=== PATIENT | female | born 1970 | race Caucasian/White ===

== ENCOUNTER → 2017-06-02 | Day surgery (SDC) | payer OTHER ==
--- NOTE | 2017-06-05 16:31 | PATH ---
Surgical Pathology Report Patient Name: TONI GONZALEZ [facility]. Rec. #: [id number] /Age/Gender: 1970 (Age: 47) / F Account: [id number] Location: [facility], [facility] U Taken: 06/02/2017 Received: 06/02/2017 Reported: 06/05/2017 Physicians: Chris Christopher M.D. Specimen(s) Received A: LEFT BREAST SITE #1 8:00 2CM FN CORE BX B: LEFT BREAST 9-10:00, 4-12 CM FN CORE BX Clinical History Ultrasound findings: Highly suspicious/ malignant Final Diagnosis A. BREAST, LEFT, SITE #1, 8 :00, 2CM FN, CORE BIOPSY: BENIGN BREAST TISSUE SHOWING PROLIFERATIVE FIBROCYSTIC CHANGES INCLUDING MICROCYST FORMATION, USUAL DUCTAL HYPERPLASIA (UDH) AND STROMAL FIBROSIS. B. BREAST, LEFT, 9-10:00, 4-12CM FN, CORE BIOPSY: INVASIVE DUCTAL CARCINOMA, POORLY DIFFERENTIATED, MEASURING AT LEAST 5 MM IN GREATEST DIMENSION IN THIS MATERIAL. Results of ER and OK studies performed on block B at [facility] are as follows: ER (clone [id number] mouse monoclonal antibody by [employer]): 0 % nuclear staining (Negative). OK (clone16 mouse monoclonal antibody by [employer]): 0 % nuclear staining (Negative). Results of Her2 & Ki67 studies will be reported separately in an addendum. Positive and negative controls (internal if applicable) show appropriate results. Formalin fixation and cold ischemic times are within current ASCO/CAP recommendations for ER, OK and Her2 testing. Electronically Signed Lorena Velazquez M.D. Addendum Reported: 06/06/2017 Addendum Diagnosis Results of Her2 (IHC) & Ki-67 studies performed at [place], [place] ([id number]) are as follows: Her2 IHC (EP3 from [employer], formerly known as PC5612N, using [employer] Polymer Refine detection kit): 0 (Negative). Ki-67: ~90% (High proliferative index). Positive and negative controls (internal if applicable) show appropriate results. Lorena Velazquez M.D. Gross Description A. Received in formalin labeled "left breast biopsy 8:00, 2cmfn, site #1," is a 1.6 x 1.5 x 0.2 cm aggregate of multiple mcdermott-yellow, irregular to cylindrical portions of fibroadipose tissue. The formalin is filtered and the specimen is entirely submitted in one cassette. B. Received in formalin labeled "left breast biopsy 9-10:00, 4-12cmfn site #2," is a 1.2 x 0.9 x 0.1 cm aggregate of multiple mcdermott-yellow, irregular to cylindrical portions of fibroadipose tissue. The formalin is filtered and the specimen is entirely submitted in one cassette. Time to formalin fixation: 3 minutes Total formalin fixation time: Approximately 9 hours. 06/02/2017 saudi06/02/2017
== END | disposition home or self-care (01) ==
LOC: FRADUS-SUR 13:16
PROVIDERS: ATTEND Surgery
PROC: 0HBU3ZX Excision of Left Breast, Percutaneous Approach, Diagnostic (ICD-10-PCS; principal; 2017-06-02)
DX: C50.212 Malignant neoplasm of upper-inner quadrant of left female breast (principal); N60.82 Other benign mammary dysplasias of left breast; N60.32 Fibrosclerosis of left breast; N63.24 Unspecified lump in the left breast, lower inner quadrant; N63.22 Unspecified lump in the left breast, upper inner quadrant
CPT/HCPCS: 19083; 19084; 87899; 88305-TC; 88342-TC

== ENCOUNTER 2017-06-18 23:54 | Emergency (ER) | payer OTHER ==
[2017-06-19 00:06] VITALS: BMI 29.2
--- NOTE | 2017-06-19 00:09 | PDOC ---
History of Present Illness - General Chief Complaint: Pain Stated Complaint: HEADACHE,ABD PAIN Time Seen by Provider: 06/18/17 23:59 - History of Present Illness Initial Comments: 06/19/17 00:31 47 yo F with h/o chronic neck pain 2/2 multilevel herniated disc with repair, left sided invasive ductal carcinoma ( 05/19/2017) who presents with abdominal pain. Patient reports widespread, severe, diffuse, crampy, abdominal pain, worse with movement, and valsalva. Reports 1 week of loose, watery, yellow, brown stool, and nausea with no asx. emesis. Reports inability to pass solid stool, with diffuse abdominal distension. Decreased PO intake and subjective fevers. No recent antibiotic use. Denies esophageal burning. On multiple opoid medications including fentanyl, dilaudid use for chronic neck pain. Mirilax beginning Monday with no relief. Denies CP, SOB, urinary complaints, lightheadedness, weakness, sensory changes. H/o polyps on colonoscopy 5 years ago, and 3 endoscopies within past 10 years. Gastritis on endoscopy. Tobacco use 1 ppd for 40 years. Past History - Past Medical History Allergies/Adverse Reactions: Allergies Allergy/AdvReac Type Severity Reaction Status Date / Time titanium Allergy Verified 06/19/17 00:01 Home Medications: Ambulatory Orders Albuterol Sulfate [Proair Hfa] 8.5 gm IH PRN 06/19/17 Aspirin [Aspirin EC] 81 mg PO DAILY 06/19/17 Ca/D3/Mag/Zinc/Tino/Geovani/Mgbor [Caltrate 600+D3+Min Chew Tab] 1 each PO DAILY Cyclobenzaprine HCl [Flexeril -] 10 mg PO TID 06/19/17 Escitalopram Oxalate [Lexapro -] 20 mg PO DAILY 06/19/17 Esomeprazole Magnesium [Nexium 24Hr] 20 mg PO DAILY 06/19/17 FENTANYL 100mcg PATCH [DURAGESIC 100mcg PATCH -] 200 each TD Q72H 06/19/17 Furosemide [Lasix] 40 mg PO BID 06/19/17 HYDROmorphone [Dilaudid -] 4 mg PO Q4H 06/19/17 LORazepam [Ativan] 1 mg PO DAILY 06/19/17 Loteprednol Etabonate [Alrex] 5 ml OP PRN 06/19/17 Metformin HCl 500 mg PO BID 06/19/17 Metoprolol Succinate 100 mg PO BID 06/19/17 Onabotulinumtoxina [Botox (Nf) -] 200 unit IJ MONTHLY 06/19/17 Ondansetron [Zofran *Odt*] 8 mg SL BID 06/19/17 Ranitidine [Zantac -] 150 mg PO ONCE 06/19/17 Secukinumab [Cosentyx Pen] 150 mg SQ MONTHLY 06/19/17 Asthma: Yes Cancer: Yes (Breast cancer) COPD: No DVT: No Diabetes: Yes HTN: Yes Liver Disease: Yes (fatty liver) Psychiatric Problems: Yes (depression, anxiety) Other medical history: cervical sx, herniated discs, psoriatic arthritis,bone grafts - Suicide/Smoking/Psychosocial Hx Smoking History: Current every day smoker Number of Cigarettes Smoked Daily: 20 Information on smoking cessation initiated: Yes 'Breaking Loose' booklet given: 06/19/17 Hx Alcohol Use: No Drug/Substance Use Hx: No Substance Use Type: None Review of Systems - Review of Systems Comments:: 06/19/17 00:08 GENERAL/CONSTITUTIONAL: No fever or chills. No weakness. HEAD, EYES, EARS, NOSE AND THROAT: No change in vision. No ear pain or discharge. No sore throat.- CARDIOVASCULAR: No chest pain or shortness of breath RESPIRATORY: No cough, wheezing, or hemoptysis. GASTROINTESTINAL:+ nausea, constipation, and abdominal pain. vomiting, diarrhea or constipation. GENITOURINARY: No dysuria, frequency, or change in urination. MUSCULOSKELETAL: + Neck Pain. No joint or muscle swelling. SKIN: No rash NEUROLOGIC: No headache, vertigo, loss of consciousness, or change in strength/ sensation. ENDOCRINE: No increased thirst. No abnormal weight change HEMATOLOGIC/LYMPHATIC: No anemia, easy bleeding, or history of blood clots. ALLERGIC/IMMUNOLOGIC: No hives or skin allergy. *Physical Exam - Vital Signs Last Vital Signs Temp Pulse Resp BP Pulse Ox 97.7 F 100 H 19 155/92 100 06/18/17 23:56 06/18/17 23:56 06/18/17 23:56 06/18/17 23:56 06/18/17 23:56 - Physical Exam Comments: 06/19/17 00:08 GENERAL: Awake, alert, and fully oriented, in no acute distress HEAD: No signs of trauma, normocephalic, atraumatic EYES: PERRLA, EOMI, sclera anicteric, conjunctiva clear ENT:Hearing grossly normal, nares patent, oropharynx clear without exudates. Moist mucosa NECK: Normal ROM, supple, no lymphadenopathy, JVD, or masses LUNGS: No distress, speaks full sentences, clear to auscultation bilaterally HEART: Regular rate and rhythm, normal S1 and S2, no murmurs, rubs or gallops, peripheral pulses normal and equal bilaterally. ABDOMEN: Soft, diffuse abdominal ttp. Distended Hyperactive bowel sounds. No guarding, no rebound, no rigidity. No masses. Neg CVA ttp. Neg suprapubic pain or cva ttp. Neg Mcburney or montoya sign. EXTREMITIES : Normal inspection, Normal range of motion, no edema. No clubbing or cyanosis. SKIN: Warm, Dry, normal turgor, no rashes or lesions noted ED Treatment Course - LABORATORY CBC & Chemistry Diagram: 06/19/17 01:20 06/19/17 03:26 Medical Decision Making - Medical Decision Making 06/19/17 00:49 47 yo F with h/o chronic neck pain 2/2 multilevel herniated disc with repair, left sided invasive ductal carcinoma ( 06/03/2017) who presents with widespread , severe, diffuse, crampy, abdominal pain, worse with movement, and valsalva. Reports 1 week of loose, watery, yellow, brown stool, and nausea with no asx. emesis. Reports inability to pass solid stool, with diffuse abdominal distension. Decreased PO intake and subjective fevers. No recent antibiotic use. On multiple opoid medications including fentanyl, dilaudid use for chronic neck pain. Mirilax beginning Monday with no relief. Denies CP, SOB, urinary complaints, lightheadedness, weakness, sensory changes. H/o polyps on colonoscopy 5 years ago, and 3 endoscopies within past 10 years. Gastritis on endoscopy. Physical exam with diffuse ttp, and HBS. HR 100. Low suspicion of acute abdomen. Abdomen non rigid, and pt. HDS. Possible Ileus vs. SBO 2/2 chronic opoid use. Will also consider C-dif. ED Course: CBC, CMP, Lipase NS [address] AP 06/19/17 01:35 CBC: Unremarkable 06/19/17 02:46 UA: Neg 06/19/17 05:05 K+ 3.3 06/19/17 05:27 CT AP: cirrhosis and portal venous HTN w/out ascites. 06/19/17 05:32 06/19/17 06:26 Patient stable for d/c with return precautions. Advised to f/u with Dr. Josephine Groves for cirrhosis finding on CT. *DC/Admit/Observation/Transfer Diagnosis at time of Disposition: Abdominal pain Qualifiers: Abdominal location: generalized Qualified Code(s): R10.84 - Generalized abdominal pain - Discharge Dispostion Disposition: HOME Condition at time of disposition: Stable Admit: No - Referrals Referrals: Josephine Groves [Primary Care Provider] - - Patient Instructions Printed Discharge Instructions: DI for Constipation, DI for Cirrhosis Additional Instructions: Please return to the emergency department with any new or worsening symptoms or concerns. Please follow up with your primary care physician within 72 hours. - Post Discharge Activity - Attestations Physician Attestion: 06/19/17 00:09 I attest to the information provided in this note.
--- NOTE | 2017-06-19 00:39 | PDOC ---
Attending Attestation - Resident Resident Name: Amadeo Nicholas - ED Attending Attestation I have performed the following: I have examined & evaluated the patient, The case was reviewed & discussed with the resident, I agree w/resident's findings & plan - HPI HPI: 06/19/17 00:42 Pt comes with abd pain and constipation. - Physicial Exam PE: 06/19/17 00:42 Agree with resident exam - Medical Decision Making 06/19/17 05:42 Patient Name: TONI GONZALEZ THIS IS A PRELIMINARY REPORT FROM [facility] DATE OF SERVICE: 2017-06-19 04:43:59 IMAGES: 430 EXAM: ABDOMEN \T\ PELVIS CT WITH CONTR HISTORY: Pain COMPARISON: None. FINDINGS: Lung bases ar the calcified lung granulomas are noted. The visualized cardiac chambers are normal size and configuration. The liver is cirrhotic and the spleen is enlarged up to 17.1 x 9.7. Perigastric varices are noted. Findings are consistent with portal venous hypertension. There are gallstones, but no gallbladder inflammation or biliary duct dilation. Normal pancreas, adrenal glands and kidneys. The stomach and abdominal small and large bowel are normal. There is no aortic aneurysm. There is no significant retroperitoneal lymphadenopathy. The pelvic small and large bowel are normal. There is no evidence of appendicitis. Status post hysterectomy. Urinary bladder is unremarkable. There is no pelvic free fluid. No discrete pelvic lymphadenopathy is identified. IMPRESSION: Cirrhosis and portal venous hypertension, without ascites. Gallstones. Old granulomatous disease. THIS DOCUMENT HAS BEEN ELECTRONICALLY SIGNED 06/19/17 06:37 Pt has normal labs; K+ is low. SHe will be repleted. Pt will follow with her PMDs
[2017-06-19] MEDS ORDERED: SODIUM CHLORIDE 1,000 ML IV STA (00:47)
[2017-06-19 01:33] LABS: BASO % 0.5 % (0-2.0); HEMATOCRIT 38.3 % (32.4-45.2); HEMOGLOBIN 12.9 GM/dL (10.7-15.3); LYMPH % 35.8 % (8-40); MCH 27.7 pg (25.7-33.7); MCHC 33.7 g/dl (32.0-36.0); MEAN CELL VOLUME 82.4 fl (80-96); MEAN PLT VOLUME 9.5 fl (7.5-11.1); MONO % 8.4 % (3.8-10.2); NEUT % 54.3 % (42.8-82.8); PLATELET COUNT 84 K/MM3 (134-434); RBC 4.65 M/mm3 (3.60-5.2); RDW 15.8 % (11.6-15.6); WHITE BLOOD COUNT 4.4 K/mm3 (4.0-10.0)
[2017-06-19 02:20] LABS: URINE APPEARANCE CLEAR; URINE BILIRUBIN NEGATIVE (NEGATIVE); URINE BLOOD NEGATIVE (NEGATIVE); URINE COLOR YELLOW; URINE GLUCOSE (UA) NEGATIVE (NEGATIVE); URINE KETONE NEGATIVE (NEGATIVE); URINE LEUK ESTERASE NEGATIVE (NEGATIVE); URINE NITRITE NEGATIVE (NEGATIVE); URINE PROTEIN NEGATIVE (NEGATIVE); URINE UROBILINOGEN NEGATIVE mg/dL (0.2-1.0)
[2017-06-19] MEDS ORDERED: ACETAMINOPHEN 1000 MG/100 ML VIAL (NON FORMULARY) IVPB ONE (03:19)
[2017-06-19] MEDS ORDERED: ACETAMINOPHEN INJECTION 100 ML IVPB ONE (03:20)
[2017-06-19 04:17] LABS: ALBUMIN 3.6 g/dl (3.4-5.0); ALK PHOS 113 U/L (45-117); ANION GAP 6 (8-16); BLOOD UREA NITROGEN 8 mg/dL (7-18); CALCIUM 8.5 mg/dL (8.5-10.1); CHLORIDE 103 mmol/L (98-107); CO2 30 mmol/L (21-32); CREATININE 0.5 mg/dL (0.55-1.02); GLUCOSE,RANDOM 92 mg/dL (74-106); POTASSIUM 3.3 mmol/L (3.5-5.1); SGOT/AST 19 U/L (15-37); SGPT/ALT 21 U/L (12-78); SODIUM 139 mmol/L (136-145); TOT PROT 6.3 g/dl (6.4-8.2)
[2017-06-19] MEDS ORDERED: POTASSIUM CHLORIDE TABS 20 MEQ TABLET.ER (FP) PO ONE ×2 (04:41→06:16)
[2017-06-19] MEDS ORDERED: MAGNESIUM SULF 50% (8.12 MEQ/2 ML-1 GM VIAL) IVPB ONE (04:41)
[2017-06-19] MEDS ORDERED: KETOROLAC TROMETHAMINE 30 MG/1 ML VIAL IVPUSH ONE (05:25)
[2017-06-19] MEDS ORDERED: KETOROLAC TROMETHAMINE 30 MG/1 ML VIAL ONE (05:27)
[2017-06-19] MEDS ORDERED: MAGNESIUM SULF 50% (8.12 MEQ/2 ML-1 GM VIAL) ONE (05:31)
[2017-06-19] MEDS ORDERED: METHOCARBAMOL 750 MG TAB PO ONE (06:34)
[2017-06-19] MEDS ORDERED: METHOCARBAMOL 500 MG TABLET PO ONE (06:45)
[2017-06-19] MEDS ORDERED: METHOCARBAMOL 500 MG TABLET ONE (06:53)
[2017-06-19 07:05] VITALS: BP 167/90; PULSE 80; TEMP 97.5
== END 2017-06-19 07:05 | disposition home or self-care (01) ==
LOC: JER 23:54
PROC: 3E0333Z Introduction of Anti-inflammatory into Peripheral Vein, Percutaneous Approach (ICD-10-PCS; principal; 2017-06-18)
PROC: 3E033GC Introduction of Other Therapeutic Substance into Peripheral Vein, Percutaneous Approach (ICD-10-PCS; 2017-06-18)
PROC: 3E0337Z Introduction of Electrolytic and Water Balance Substance into Peripheral Vein, Percutaneous Approach (ICD-10-PCS; 2017-06-18)
DX: R10.84 Generalized abdominal pain (principal); K74.60 Unspecified cirrhosis of liver; K76.6 Portal hypertension; I10 Essential (primary) hypertension; E11.9 Type 2 diabetes mellitus without complications; F32.9 Major depressive disorder, single episode, unspecified; F41.9 Anxiety disorder, unspecified; F17.210 Nicotine dependence, cigarettes, uncomplicated; K76.0 Fatty (change of) liver, not elsewhere classified; M54.2 Cervicalgia; G89.29 Other chronic pain; C50.919 Malignant neoplasm of unspecified site of unspecified female breast; J45.909 Unspecified asthma, uncomplicated; Z79.82 Long term (current) use of aspirin; Z79.84 Long term (current) use of oral hypoglycemic drugs
CPT/HCPCS: 36415; 74177-TC; 80053; 81003; 83690; 84703; 85025; 99282-25

== ENCOUNTER 2017-06-20 00:51 | Emergency (ER) | payer OTHER ==
[2017-06-20 01:19] VITALS: BP 147/71; PULSE 71; TEMP 97.9; BMI 28.7
--- NOTE | 2017-06-20 01:29 | PDOC ---
History of Present Illness <MarcosSwathi Merna - Last Filed: 06/20/17 01:29> - General History Source: Patient, Old Records Exam Limitations: No Limitations - History of Present Illness Initial Comments: 06/20/17 01:36 The patient is a 47 year old female, with a significant past medical history of chronic neck pain 2/2 multilevel herniated disc with repair, liver cirrhosis, left sided invasive ductal carcinoma ( 05/19/2017), diabetes, asthma, HTN, psoriatic arthritis,bone grafts, depression and anxiety, who presents to the emergency department with abdominal pain, diarrhea, nausea and palpitations for the past 4 days. She describes her pain as ranging from mild to moderate, without radiation or modifying factors. She notes that she has also been having loose stools since taking Miralax for constipation. The patient was in the ED yesterday morning with the same complaints. A CT scan abdomen/pelvis with contrast was performed revealing liver cirrhosis. She was discharged and referred to her PMD and GI (Dr. Gilbert) for follow up. Upon presentation the patient was reassured that her previous work-up from yesterday was the complete work-up that could be done and that the referrals that were given to her are what she needs for her next steps. The patient denies chest pain, shortness of breath, headache and dizziness. Denies fever, chills, vomit, diarrhea and constipation. Denies dysuria, frequency, urgency and hematuria. Allergies: Titanium Past surgical history: None reported Social history: Cigarette use (20 daily) PMD: Dr. Josephine Groves <Bucky Chapman - Last Filed: 06/20/17 01:36> - General Chief Complaint: Pain Stated Complaint: PAIN Time Seen by Provider: 06/20/17 01:02 Past History - Past Medical History Asthma: Yes Cancer: Yes (Breast cancer) COPD: No DVT: No Diabetes: Yes HTN: Yes Liver Disease: Yes (fatty liver, cirrhosis) Psychiatric Problems: Yes (depression, anxiety) - Suicide/Smoking/Psychosocial Hx Smoking History: Current every day smoker Have you smoked in the past 12 months: Yes Number of Cigarettes Smoked Daily: 20 Information on smoking cessation initiated: No 'Breaking Loose' booklet given: 06/19/17 Hx Alcohol Use: No Drug/Substance Use Hx: No Substance Use Type: None <Swathi Rodríguez - Last Filed: 06/20/17 01:29> <Bucky Chapman - Last Filed: 06/20/17 01:36> - Past Medical History Allergies/Adverse Reactions: Allergies Allergy/AdvReac Type Severity Reaction Status Date / Time titanium Allergy Verified 06/20/17 01:15 Home Medications: Ambulatory Orders Albuterol Sulfate [Proair Hfa] 8.5 gm IH PRN 06/19/17 Aspirin [Aspirin EC] 81 mg PO DAILY 06/19/17 Ca/D3/Mag/Zinc/Tino/Geovani/Mgbor [Caltrate 600+D3+Min Chew Tab] 1 each PO DAILY Cyclobenzaprine HCl [Flexeril -] 10 mg PO TID 06/19/17 Escitalopram Oxalate [Lexapro -] 20 mg PO DAILY 06/19/17 Esomeprazole Magnesium [Nexium 24Hr] 20 mg PO DAILY 06/19/17 FENTANYL 100mcg PATCH [DURAGESIC 100mcg PATCH -] 200 each TD Q72H 06/19/17 Furosemide [Lasix] 40 mg PO BID 06/19/17 HYDROmorphone [Dilaudid -] 4 mg PO Q4H 06/19/17 LORazepam [Ativan] 1 mg PO DAILY 06/19/17 Loteprednol Etabonate [Alrex] 5 ml OP PRN 06/19/17 Metformin HCl 500 mg PO BID 06/19/17 Metoprolol Succinate 100 mg PO BID 06/19/17 Onabotulinumtoxina [Botox (Nf) -] 200 unit IJ MONTHLY 06/19/17 Ondansetron [Zofran *Odt*] 8 mg SL BID 06/19/17 Ranitidine [Zantac -] 150 mg PO ONCE 06/19/17 Secukinumab [Cosentyx Pen] 150 mg SQ MONTHLY 06/19/17 Review of Systems - Review of Systems Able to Perform ROS?: Yes Comments:: 06/20/17 01:36 GENERAL/CONSTITUTIONAL: No fever or chills. No weakness. HEAD, EYES, EARS, NOSE AND THROAT: No change in vision. No ear pain or discharge. No sore throat. CARDIOVASCULAR: No chest pain or shortness of breath RESPIRATORY: No cough, wheezing, or hemoptysis. GASTROINTESTINAL: (+) Abdominal pain, nausea and diarrhea. No vomiting or constipation. GENITOURINARY: No dysuria, frequency, or change in urination. MUSCULOSKELETAL: No joint or muscle swelling or pain. No neck or back pain. SKIN: No rash NEUROLOGIC: No headache, vertigo, loss of consciousness, or change in strength/ sensation. ENDOCRINE: No increased thirst. No abnormal weight change HEMATOLOGIC/LYMPHATIC: No anemia, easy bleeding, or history of blood clots. ALLERGIC/IMMUNOLOGIC: No hives or skin allergy. <Bucky Chapman - Last Filed: 06/20/17 01:36> *Physical Exam - Vital Signs Last Vital Signs Temp Pulse Resp BP Pulse Ox 97.9 F 71 20 147/71 100 06/20/17 01:15 06/20/17 01:15 06/20/17 01:15 06/20/17 01:15 06/20/17 01:15 <Swathi Rodríguez - Last Filed: 06/20/17 01:29> - Vital Signs Last Vital Signs Temp Pulse Resp BP Pulse Ox 97.9 F 71 20 147/71 100 06/20/17 01:15 06/20/17 01:15 06/20/17 01:15 06/20/17 01:15 06/20/17 01:15 - Physical Exam Comments: 06/20/17 01:36 GENERAL: Awake, alert, and fully oriented, in no acute distress HEAD: No signs of trauma, normocephalic, atraumatic EYES: PERRLA, EOMI, sclera anicteric, conjunctiva clear ENT: Auricles normal inspection, hearing grossly normal, nares patent, oropharynx clear without exudates. Moist mucosa NECK: Normal ROM, supple, no lymphadenopathy, JVD, or masses LUNGS: No distress, speaks full sentences, clear to auscultation bilaterally HEART: Regular rate and rhythm, normal S1 and S2, no murmurs, rubs or gallops, peripheral pulses normal and equal bilaterally. ABDOMEN: Soft, nontender, normoactive bowel sounds. No guarding, no rebound. No masses EXTREMITIES : Normal inspection, Normal range of motion, no edema. No clubbing or cyanosis. NEUROLOGICAL: Cranial nerves II through XII grossly intact. Normal speech, normal gait, no focal sensorimotor deficits SKIN: Warm, Dry, normal turgor, no rashes or lesions noted <Bucky Chapman - Last Filed: 06/20/17 01:36> *DC/Admit/Observation/Transfer <Swathi Rodríguez - Last Filed: 06/20/17 01:29> - Attestations Scribe Attestion: 06/20/17 01:36 Documentation prepared by Bucky Chapman, acting as medical referral coordinator for Swathi Rodríguez MD <Bucky Chapman - Last Filed: 06/20/17 01:36> Diagnosis at time of Disposition: Abdominal pain Qualifiers: Abdominal location: epigastric Qualified Code(s): R10.13 - Epigastric pain - Discharge Dispostion Disposition: HOME Condition at time of disposition: Stable - Referrals Referrals: Josephine Groves [Primary Care Provider] - - Patient Instructions Printed Discharge Instructions: DI for Epigastric Pain Additional Instructions: please keep your appointment with your oncologist - Post Discharge Activity
== END 2017-06-20 01:35 | disposition home or self-care (01) ==
LOC: JER 00:51
DX: R10.13 Epigastric pain (principal); J45.909 Unspecified asthma, uncomplicated; M19.90 Unspecified osteoarthritis, unspecified site; C50.919 Malignant neoplasm of unspecified site of unspecified female breast; E11.9 Type 2 diabetes mellitus without complications; I10 Essential (primary) hypertension; K76.0 Fatty (change of) liver, not elsewhere classified; F32.9 Major depressive disorder, single episode, unspecified; F41.9 Anxiety disorder, unspecified; F17.210 Nicotine dependence, cigarettes, uncomplicated; M54.2 Cervicalgia; G89.29 Other chronic pain; K74.60 Unspecified cirrhosis of liver; Z79.82 Long term (current) use of aspirin; Z79.84 Long term (current) use of oral hypoglycemic drugs
CPT/HCPCS: 99281-25

== ENCOUNTER 2017-06-20 04:00 | Emergency (ER) | payer OTHER ==
[2017-06-20 04:19] VITALS: BP 168/86; PULSE 88; TEMP 98.3; BMI 27.4
--- NOTE | 2017-06-20 05:14 | PDOC ---
History of Present Illness - General Chief Complaint: Pain Stated Complaint: GENERALIZED PAIN Time Seen by Provider: 06/20/17 04:22 - History of Present Illness Initial Comments: 06/20/17 05:14 47 yo F with h/o chronic neck pain 2/2 multilevel herniated disc with repair, left sided invasive ductal carcinoma ( 05/19/2017), and recent dx. of cirrhosis ( 06/19/17) who presents with abdominal pain. Patient seen twice in [facility] ED within last 48 hours for similiar complaint of widespread, severe, diffuse, crampy, abdominal pain, worse with movement, and valsalva. Endorses 1 week of loose, watery, yellow, brown stool, and nausea w/out vomitting. Decreased PO intake and subjective fevers. No recent antibiotic use. On multiple opoid medications including fentanyl, dilaudid use for chronic neck pain. Mirilax beginning Monday with no relief. Was given Toradol during most recent ED visit today at 130 AM with improvement in symptoms. Denies CP, SOB, urinary complaints , lightheadedness, weakness, sensory changes. H/o polyps on colonoscopy 5 years ago, and 3 endoscopies within past 10 years. Gastritis on endoscopy. Tobacco use 1 ppd for 40 years. Was advised today to f/u with Dr. Vladimir WHITE for chronic symptom management. Past History - Past Medical History Allergies/Adverse Reactions: Allergies Allergy/AdvReac Type Severity Reaction Status Date / Time titanium Allergy Verified 06/20/17 04:17 Home Medications: Ambulatory Orders Albuterol Sulfate [Proair Hfa] 8.5 gm IH PRN 06/19/17 Aspirin [Aspirin EC] 81 mg PO DAILY 06/19/17 Ca/D3/Mag/Zinc/Tino/Geovani/Mgbor [Caltrate 600+D3+Min Chew Tab] 1 each PO DAILY Cyclobenzaprine HCl [Flexeril -] 10 mg PO TID 06/19/17 Escitalopram Oxalate [Lexapro -] 20 mg PO DAILY 06/19/17 Esomeprazole Magnesium [Nexium 24Hr] 20 mg PO DAILY 06/19/17 FENTANYL 100mcg PATCH [DURAGESIC 100mcg PATCH -] 200 each TD Q72H 06/19/17 Furosemide [Lasix] 40 mg PO BID 06/19/17 HYDROmorphone [Dilaudid -] 4 mg PO Q4H 06/19/17 LORazepam [Ativan] 1 mg PO DAILY 06/19/17 Loteprednol Etabonate [Alrex] 5 ml OP PRN 06/19/17 Metformin HCl 500 mg PO BID 06/19/17 Metoprolol Succinate 100 mg PO BID 06/19/17 Onabotulinumtoxina [Botox (Nf) -] 200 unit IJ MONTHLY 06/19/17 Ondansetron [Zofran *Odt*] 8 mg SL BID 06/19/17 Ranitidine [Zantac -] 150 mg PO ONCE 06/19/17 Secukinumab [Cosentyx Pen] 150 mg SQ MONTHLY 06/19/17 Asthma: Yes Cancer: Yes (Breast cancer) COPD: No DVT: No Diabetes: Yes HTN: Yes Liver Disease: Yes (fatty liver, cirrhosis) Psychiatric Problems: Yes (depression, anxiety) - Suicide/Smoking/Psychosocial Hx Smoking History: Never smoked Have you smoked in the past 12 months: No Number of Cigarettes Smoked Daily: 20 Information on smoking cessation initiated: No 'Breaking Loose' booklet given: 06/19/17 Hx Alcohol Use: No Drug/Substance Use Hx: Yes Substance Use Type: None Review of Systems - Review of Systems Comments:: 06/20/17 05:14 GENERAL/CONSTITUTIONAL: No fever or chills. No weakness. HEAD, EYES, EARS, NOSE AND THROAT: No change in vision. No ear pain or discharge. No sore throat.- CARDIOVASCULAR: No chest pain or shortness of breath RESPIRATORY: No cough, wheezing, or hemoptysis. GASTROINTESTINAL:+ Nausea, constipation, and abdominal pain. vomiting, diarrhea or constipation. GENITOURINARY: No dysuria, frequency, or change in urination. MUSCULOSKELETAL: + Neck Pain. No joint or muscle swelling. SKIN: No rash NEUROLOGIC: No headache, vertigo, loss of consciousness, or change in strength/ sensation. ENDOCRINE: No increased thirst. No abnormal weight change HEMATOLOGIC/LYMPHATIC: No anemia, easy bleeding, or history of blood clots. ALLERGIC/IMMUNOLOGIC: No hives or skin allergy. *Physical Exam - Vital Signs Last Vital Signs Temp Pulse Resp BP Pulse Ox 98.3 F 88 14 168/86 99 06/20/17 04:17 06/20/17 04:17 06/20/17 04:17 06/20/17 04:17 06/20/17 04:17 - Physical Exam Comments: 06/20/17 05:15 GENERAL: Awake, alert, and fully oriented, in no acute distress HEAD: No signs of trauma, normocephalic, atraumatic EYES: PERRLA, EOMI, sclera anicteric, conjunctiva clear ENT:Hearing grossly normal, nares patent, oropharynx clear without exudates. Moist mucosa NECK: Normal ROM, supple, no lymphadenopathy, JVD, or masses LUNGS: No distress, speaks full sentences, clear to auscultation bilaterally HEART: Regular rate and rhythm, normal S1 and S2, no murmurs, rubs or gallops, peripheral pulses normal and equal bilaterally. ABDOMEN: Soft, diffuse abdominal ttp. Distended Hyperactive bowel sounds. No guarding, no rebound, no rigidity. No masses. Neg CVA ttp. Neg suprapubic pain or cva ttp. Neg Mcburney or montoya sign. EXTREMITIES : Normal inspection, Normal range of motion, no edema. No clubbing or cyanosis. SKIN: Warm, Dry, normal turgor, no rashes or lesions noted Medical Decision Making - Medical Decision Making 06/20/17 05:28 47 yo F with h/o chronic neck pain 2/2 multilevel herniated disc with repair, left sided invasive ductal carcinoma ( 05/19/2017), and recent dx. of cirrhosis ( 06/19/17) who presents with abdominal pain. Patient seen twice in [facility] ED within last 48 hours for similiar complaint of widespread, severe, diffuse, crampy, abdominal pain, worse with movement, and valsalva. Endorses 1 week of loose stools and nausea w/out vomitting. Decreased PO intake and subjective fevers. No recent antibiotic use. On multiple opoid medications including fentanyl, dilaudid use for chronic neck pain. Mirilax beginning Monday with no relief. Was given Toradol during most recent ED visit today at 130 AM with improvement in symptoms. Denies CP, SOB, urinary complaints, lightheadedness, weakness, sensory changes.Was advised today to f/u with Dr. Vladimir WHITE for chronic symptom management. ED course: *DC/Admit/Observation/Transfer - Referrals Referrals: Josephine Groves [Primary Care Provider] - - Patient Instructions Additional Instructions: Please return to the emergency department with any new or worsening symptoms or concerns. Please follow up with your primary care physician within 72 hours. - Post Discharge Activity - Attestations Physician Attestion: 06/20/17 05:17 I attest to the information provided in this note.
== END 2017-06-20 07:10 | disposition left against medical advice (07) ==
LOC: JER 04:00
DX: R10.84 Generalized abdominal pain (principal)
CPT/HCPCS: 99282-25

== ENCOUNTER 2017-06-20 13:26 | Emergency (ER) | payer OTHER ==
--- NOTE | 2017-06-20 13:32 | PDOC ---
History of Present Illness - General Stated Complaint: Shortness of Breath Time Seen by Provider: 06/20/17 13:32 - History of Present Illness Initial Comments: 06/20/17 13:33 Ms. Jacobo is a 47 yo female w/ pmh of herniated disc w/ repair causing chronic neck pain, newly diagnosed liver cirrhosis, DM, left sided invasive ductal carcinoma (05/19/17), asthma, HTN, psoriatic arthritis, bone grafts, depression, anxiety who presents complaining of earlier abdominal pain after getting home from the ER earlier this morning. She reports she believes she had a binder which she wears on too tight and that her pain alleviated once she loosened it. She felt much better after loosening the binder and speaking with EMS who she reports "calmed her down." She reports that she feels much better now and would like to go home. She has also been referred to PMD and GI (Dr. Gilbert) for follow-up and had extensive counseling on next steps. The patient denies chest pain, shortness of breath, headache and dizziness. Denies fever, chills, nausea, vomit, diarrhea and constipation. Denies dysuria, frequency, urgency and hematuria. Allergies: Titanium Past History - Past Medical History Allergies/Adverse Reactions: Allergies Allergy/AdvReac Type Severity Reaction Status Date / Time titanium Allergy Verified 06/20/17 13:44 Home Medications: Ambulatory Orders Albuterol Sulfate [Proair Hfa] 8.5 gm IH PRN 06/19/17 Aspirin [Aspirin EC] 81 mg PO DAILY 06/19/17 Ca/D3/Mag/Zinc/Tino/Geovani/Mgbor [Caltrate 600+D3+Min Chew Tab] 1 each PO DAILY Cyclobenzaprine HCl [Flexeril -] 10 mg PO TID 06/19/17 Escitalopram Oxalate [Lexapro -] 20 mg PO DAILY 06/19/17 Esomeprazole Magnesium [Nexium 24Hr] 20 mg PO DAILY 06/19/17 FENTANYL 100mcg PATCH [DURAGESIC 100mcg PATCH -] 200 each TD Q72H 06/19/17 Furosemide [Lasix] 40 mg PO BID 06/19/17 HYDROmorphone [Dilaudid -] 4 mg PO Q4H 06/19/17 LORazepam [Ativan] 1 mg PO DAILY 06/19/17 Loteprednol Etabonate [Alrex] 5 ml OP PRN 06/19/17 Metformin HCl 500 mg PO BID 06/19/17 Metoprolol Succinate 100 mg PO BID 06/19/17 Onabotulinumtoxina [Botox (Nf) -] 200 unit IJ MONTHLY 06/19/17 Ondansetron [Zofran *Odt*] 8 mg SL BID 06/19/17 Ranitidine [Zantac -] 150 mg PO ONCE 06/19/17 Secukinumab [Cosentyx Pen] 150 mg SQ MONTHLY 06/19/17 Asthma: Yes Cancer: Yes (Breast cancer) COPD: No DVT: No Diabetes: Yes HTN: Yes Liver Disease: Yes (fatty liver, cirrhosis) Psychiatric Problems: Yes (depression, anxiety) - Immunization History Immunization Up to Date: No - Suicide/Smoking/Psychosocial Hx Smoking History: Never smoked Have you smoked in the past 12 months: No Number of Cigarettes Smoked Daily: 20 'Breaking Loose' booklet given: 06/19/17 Hx Alcohol Use: No Drug/Substance Use Hx: Yes Substance Use Type: None Review of Systems - Review of Systems Comments:: 06/20/17 13:36 GENERAL/CONSTITUTIONAL: No fever or chills. No weakness. HEAD, EYES, EARS, NOSE AND THROAT: No change in vision. No ear pain or discharge. No sore throat. CARDIOVASCULAR: No chest pain or shortness of breath RESPIRATORY: No cough, wheezing, or hemoptysis. GASTROINTESTINAL: +Abdominal pain with nausea earlier this morning (now resolved ). No vomiting, diarrhea or constipation. GENITOURINARY: No dysuria, frequency, or change in urination. MUSCULOSKELETAL: No joint or muscle swelling or pain. No neck or back pain. SKIN: No rash NEUROLOGIC: No headache, vertigo, loss of consciousness, or change in strength/ sensation. ENDOCRINE: No increased thirst. No abnormal weight change HEMATOLOGIC/LYMPHATIC: No anemia, easy bleeding, or history of blood clots. ALLERGIC/IMMUNOLOGIC: No hives or skin allergy. *Physical Exam - Physical Exam Comments: 06/20/17 13:36 GENERAL: Awake, alert, and fully oriented, in no acute distress HEAD: No signs of trauma, normocephalic, atraumatic EYES: PERRLA, EOMI, sclera anicteric, conjunctiva clear ENT: Auricles normal inspection, hearing grossly normal, nares patent, oropharynx clear without exudates. Moist mucosa NECK: Normal ROM, supple, no lymphadenopathy, JVD, or masses LUNGS: No distress, speaks full sentences, clear to auscultation bilaterally HEART: Regular rate and rhythm, normal S1 and S2, no murmurs, rubs or gallops, peripheral pulses normal and equal bilaterally. ABDOMEN: Soft, nontender, normoactive bowel sounds. No guarding, no rebound. No masses EXTREMITIES: Normal inspection, Normal range of motion, no edema. No clubbing or cyanosis. NEUROLOGICAL: Cranial nerves II through XII grossly intact. Normal speech, normal gait, no focal sensorimotor deficits SKIN: Warm, Dry, normal turgor, no rashes or lesions noted. Medical Decision Making - Medical Decision Making 06/20/17 14:07 Ms. Jacobo is a 47 yo w/ pmh as described who presents for evaluation of resolved abdominal pain and current nausea. Patient recently evaluated multiple times in ER with lab workup. 06/20/17 14:15 Patient reporting complete resolution of symptoms after single 4mg sublingual zofran. Do not believe repeat labs needed at this time as patient reporting resolution of symptoms. Patient reports she has zofran Rx at home and will follow-up with PCP and Dr. Gilbert per prior plan. Discharging to home. 06/20/17 15:47 Patient noted to have episode of pain after she placed rubber stress balls inside of her binder, pain resolved after removal. EKG ordered to ensure no acute cardiac events - EKG regular rate, regular rhythm, normal access, interval , no st elevations or depressions. Normal EKG. Patient going home per prior plan. *DC/Admit/Observation/Transfer Diagnosis at time of Disposition: Nausea - Discharge Dispostion Disposition: HOME - Referrals Referrals: Josephine Groves [Primary Care Provider] - - Patient Instructions Printed Discharge Instructions: DI for Nausea -- Adult Additional Instructions: Please return if any increase in pain, nausea not controllable with home zofran prescription, fever, chills, or other concerning symptoms. Follow-up with Dr. Gilbert and your primary care provider as discussed for further evaluation. - Post Discharge Activity
[2017-06-20 13:53] VITALS: BMI 29.2
[2017-06-20] MEDS ORDERED: ONDANSETRON 4 MG/2 ML VIAL IVPUSH ONE (14:04)
[2017-06-20] MEDS ORDERED: ONDANSETRON *ODT* 4 MG TABLET SL ONE (14:06)
[2017-06-20] MEDS ORDERED: ONDANSETRON *ODT* 4 MG TABLET ONE (14:09)
--- NOTE | 2017-06-20 14:23 | PDOC ---
Attending Attestation - Resident Resident Name: [email or web address] - ED Attending Attestation I have performed the following: I have examined & evaluated the patient, The case was reviewed & discussed with the resident, I agree w/resident's findings & plan, Exceptions are as noted - HPI HPI: 06/20/17 14:21 47-year-old female well known to this physician and department presents for resolved complaints of epigastric fullness, she now attributes this to an over tightening of her chest/abdominal binder. Denies any chest pain or faculty breathing, states her symptoms are simply stomach gurgling and gas. Is having normal bowel movements, denies fevers or chills. Was just seen here last night and discharged after had normal labs. - Physicial Exam PE: 06/20/17 14:22 Vital signs normal Afebrile No guarding or rebound, well-appearing standing by her stretcher speaking full sentences, wants to go home. - Medical Decision Making 06/20/17 14:22 Patient seen and evaluated with the resident. I agree with the overall evaluation, assessment, and management with the following summary of visit: 47-year-old female with acute on chronic symptoms, epigastric fullness/ dyspepsia now resolved. Normal labs 11 hours ago. Feels better after Ramandeep Wants to go home Understands return criteria Heart Score/ECG Review #1 ECG reviewed & interpreted by me at: 15:45 General ECG Interpretation: Sinus Rhythm, Normal Rate (80), Normal Intervals ( qtc 484), No acute ischemic changes
[2017-06-20 16:57] VITALS: BP 136/86; PULSE 75; TEMP 98.1
--- NOTE | 2017-06-21 10:45 | EKG ---
Test Reason : Blood Pressure : / mmHG Vent. Rate : 080 BPM Atrial Rate : 080 BPM P-R Int : 154 ms QRS Dur : 084 ms QT Int : 420 ms P-R-T Axes : 066 031 052 degrees QTc Int : 484 ms NORMAL SINUS RHYTHM POSSIBLE LEFT ATRIAL ENLARGEMENT T WAVE ABNORMALITY, CONSIDER ANTERIOR ISCHEMIA ABNORMAL ECG WHEN COMPARED WITH ECG OF 27-JUN-2007 11:22, T WAVE INVERSION NOW EVIDENT IN ANTERIOR LEADS Confirmed by STEVEN CARVAJAL, GINA ([id number]) on 06/21/2017 10:45:10 AM Referred By: Confirmed By:GINA HARRIS MD
== END 2017-06-20 16:32 | disposition home or self-care (01) ==
LOC: JER 13:26
PROC: 3E033GC Introduction of Other Therapeutic Substance into Peripheral Vein, Percutaneous Approach (ICD-10-PCS; principal; 2017-06-20)
DX: R11.0 Nausea (principal); E11.9 Type 2 diabetes mellitus without complications; I10 Essential (primary) hypertension; J45.909 Unspecified asthma, uncomplicated; M19.90 Unspecified osteoarthritis, unspecified site; C50.912 Malignant neoplasm of unspecified site of left female breast; K76.0 Fatty (change of) liver, not elsewhere classified; K74.60 Unspecified cirrhosis of liver; F32.9 Major depressive disorder, single episode, unspecified; F41.9 Anxiety disorder, unspecified; F17.210 Nicotine dependence, cigarettes, uncomplicated; M54.2 Cervicalgia; G89.29 Other chronic pain
CPT/HCPCS: 93005; 93010; 99284-25

== ENCOUNTER 2017-07-16 13:00 | Emergency (ER) | payer OTHER ==
[2017-07-16 13:05] VITALS: BP 148/84; PULSE 75; TEMP 98.4; BMI 29.2
--- NOTE | 2017-07-16 13:45 | PDOC ---
History of Present Illness - General Chief Complaint: Injury Stated Complaint: FACE INJURY Time Seen by Provider: 07/16/17 13:33 History Source: Patient, Old Records Exam Limitations: No Limitations - History of Present Illness Initial Comments: 07/16/17 14:15 This is a 39-year-old own past medical history of breast cancer, hepatitis presents to the emergency department with redness to her left eye status post striking it against a wall on 07/15. Patient states she was walking in her slippers in the bathroom when her foot slipped causing her to lose balance and striking her left face on the door jamb of the bathroom door. She denies loss of consciousness, headaches, blurry vision, dizziness, nausea, vomiting. Patient states the redness has improved as more time is progressed. Past History - Past Medical History Allergies/Adverse Reactions: Allergies Allergy/AdvReac Type Severity Reaction Status Date / Time titanium Allergy Verified 07/16/17 13:01 Home Medications: Ambulatory Orders Albuterol Sulfate [Proair Hfa] 8.5 gm IH PRN 06/19/17 Aspirin [Aspirin EC] 81 mg PO DAILY 06/19/17 Ca/D3/Mag/Zinc/Tino/Gevoani/Mgbor [Caltrate 600+D3+Min Chew Tab] 1 each PO DAILY Cyclobenzaprine HCl [Flexeril -] 10 mg PO TID 06/19/17 Escitalopram Oxalate [Lexapro -] 20 mg PO DAILY 06/19/17 Esomeprazole Magnesium [Nexium 24Hr] 20 mg PO DAILY 06/19/17 FENTANYL 100mcg PATCH [DURAGESIC 100mcg PATCH -] 200 each TD Q72H 06/19/17 Furosemide [Lasix] 40 mg PO BID 06/19/17 HYDROmorphone [Dilaudid -] 4 mg PO Q4H 06/19/17 LORazepam [Ativan] 1 mg PO DAILY 06/19/17 Loteprednol Etabonate [Alrex] 5 ml OP PRN 06/19/17 Metformin HCl 500 mg PO BID 06/19/17 Metoprolol Succinate 100 mg PO BID 06/19/17 Onabotulinumtoxina [Botox (Nf) -] 200 unit IJ MONTHLY 06/19/17 Ondansetron [Zofran *Odt*] 8 mg SL BID 06/19/17 Ranitidine [Zantac -] 150 mg PO ONCE 06/19/17 Secukinumab [Cosentyx Pen] 150 mg SQ MONTHLY 06/19/17 Asthma: Yes Cancer: Yes (Breast cancer left) COPD: No DVT: No Diabetes: Yes HTN: Yes Liver Disease: Yes (fatty liver, cirrhosis) Psychiatric Problems: Yes (depression, anxiety) - Immunization History Immunization Up to Date: No - Suicide/Smoking/Psychosocial Hx Smoking History: Current every day smoker Have you smoked in the past 12 months: Yes Number of Cigarettes Smoked Daily: 10 Information on smoking cessation initiated: Yes 'Breaking Loose' booklet given: 07/16/17 Hx Alcohol Use: No Drug/Substance Use Hx: Yes Substance Use Type: None Review of Systems - Review of Systems Able to Perform ROS?: Yes Is the patient limited [place] proficient: No Constitutional: No: Symptoms Reported HEENTM: Yes: See HPI Respiratory: No: Symptoms reported Cardiac (ROS): No: Symptoms Reported ABD/GI: No: Symptoms Reported : No: Symptoms Reported Musculoskeletal: No: Symptoms Reported Integumentary: No: Symptoms Reported Neurological: No: Symptoms reported Endocrine: No: Symptoms Reported Hematologic/Lymphatic: Yes: See HPI *Physical Exam - Vital Signs Last Vital Signs Temp Pulse Resp BP Pulse Ox 98.4 F 75 18 148/84 100 07/16/17 13:02 07/16/17 13:02 07/16/17 13:02 07/16/17 13:02 07/16/17 13:02 - Physical Exam General Appearance: Yes: Appropriately Dressed. No: Apparent Distress HEENT: positive: Normal Voice, TMs Normal, Pharynx Normal, Other (no septal hematomas noted. petichial area noted to left lateral orbit.). negative: Nasal Congestion Neck: positive: Trachea midline, Supple Respiratory/Chest: positive: Lungs Clear, Normal Breath Sounds. negative: Respiratory Distress, Accessory Muscle Use Cardiovascular: positive: Regular Rhythm, Regular Rate. negative: Murmur Gastrointestinal/Abdominal: positive: Normal Bowel Sounds, Soft. negative: Tender Musculoskeletal: positive: Normal Inspection. 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 No septal hematoma is noted. Palpation of the orbits reveals no tenderness, crepitus, deformity, subcutaneous emphysema. Cranial nerves II through XII intact. Gait steady. EOMI. No entrapment present The patient has a benign neurological examination give a history of thrombocytopenia I'll perform a CAT scan to rule out intracranial hemorrhage Patient is refusing pain medication at this time 07/16/17 14:[address] as read by Dr. Gotti: No CVA tenderness of intracranial injury or calvarial fracture. There is no extra-axial fluid collection. No gross mass lesion is seen. There is no discrete infarct within the limits of CT. No abnormal attenuation is noted. The ventricles and cisterns appear unremarkable. Impression: No CT evidence of acute pathology dC home *DC/Admit/Observation/Transfer Diagnosis at time of Disposition: Ecchymosis of eye Qualifiers: Encounter type: initial encounter Laterality: left Qualified Code(s): S05.12XA - Contusion of eyeball and orbital tissues, left eye, initial encounter - Discharge Dispostion Disposition: HOME Condition at time of disposition: Stable Admit: No - Referrals Referrals: Josephine Groves [Primary Care Provider] - - Patient Instructions Printed Discharge Instructions: DI for Closed Head Injury Additional Instructions: Return to emergency department for blurry vision, headaches, nausea, vomiting, change in behavior or any other concerns. - Post Discharge Activity
== END 2017-07-16 14:35 | disposition home or self-care (01) ==
LOC: JERFT 13:00
DX: S05.12XA Contusion of eyeball and orbital tissues, left eye, initial encounter (principal); W01.118A Fall on same level from slipping, tripping and stumbling with subsequent striking against other sharp object, initial encounter; Y93.89 Activity, other specified; Y92.032 Bedroom in apartment as the place of occurrence of the external cause; Y99.8 Other external cause status; J45.909 Unspecified asthma, uncomplicated; I10 Essential (primary) hypertension; E11.9 Type 2 diabetes mellitus without complications; Z79.84 Long term (current) use of oral hypoglycemic drugs; K76.0 Fatty (change of) liver, not elsewhere classified; K74.60 Unspecified cirrhosis of liver; F41.8 Other specified anxiety disorders; C50.912 Malignant neoplasm of unspecified site of left female breast; F17.210 Nicotine dependence, cigarettes, uncomplicated
CPT/HCPCS: 70450-TC; 99281-25

== ENCOUNTER 2017-07-19 12:53 | Inpatient (IN) | payer OTHER ==
--- NOTE | 2017-07-19 12:55 | PDOC ---
History of Present Illness - General Chief Complaint: Pain Stated Complaint: ABDOMINAL PAIN FOR 3 DAYS Time Seen by Provider: 07/19/17 12:55 History Source: Patient Exam Limitations: No Limitations - History of Present Illness Initial Comments: 47 yo F history HTN, DM, prior spinal surgeries to neck, psoriasis, cirrhosis, anxiety, and depression presenting with 3 days of abdominal pain, progressively worsening. Pain is described as sharp, colicky, severe. She has history of prior abdominal surgery. No N/V/D. She has had some constipation. She c/o "bumps " in the perirectal area. Past History - Past Medical History Allergies/Adverse Reactions: Allergies Allergy/AdvReac Type Severity Reaction Status Date / Time nickel Allergy Intermediate Rash Verified 07/19/17 12:55 titanium Allergy Verified 07/19/17 12:54 Home Medications: Ambulatory Orders Albuterol Sulfate Inhaler - [Ventolin Hfa Inhaler -] 2 inh PO Q4H 07/19/17 Escitalopram Oxalate [Lexapro -] 20 mg PO BID 07/19/17 Esomeprazole Magnesium 40 mg PO DAILY 07/19/17 FENTANYL 100mcg PATCH [DURAGESIC 100mcg PATCH -] 200 mcg TP Q2D 07/19/17 Furosemide [Lasix] 40 mg PO BID 07/19/17 HYDROmorphone [Dilaudid -] 4 mg PO TID PRN 07/19/17 LORazepam [Ativan] 1 mg PO BID 07/19/17 Lactulose 10 gm PO BID 07/19/17 Metformin HCl 500 mg PO BIDAC 07/19/17 Montelukast Sodium [Singulair] 10 mg PO HS 07/19/17 Ondansetron [Zofran *Odt*] 8 mg SL TID 07/19/17 Ranitidine [Zantac -] 150 mg PO DAILY 07/19/17 Metoprolol Succinate 100 mg PO BID 07/20/17 Asthma: Yes Cancer: Yes (Breast cancer left) COPD: No DVT: No Diabetes: Yes HTN: Yes Liver Disease: Yes (fatty liver, cirrhosis) Psychiatric Problems: Yes (depression, anxiety) - Immunization History Immunization Up to Date: No - Suicide/Smoking/Psychosocial Hx Smoking History: Current every day smoker Have you smoked in the past 12 months: Yes Number of Cigarettes Smoked Daily: 10 'Breaking Loose' booklet given: 07/16/17 Hx Alcohol Use: No Drug/Substance Use Hx: Yes Substance Use Type: None Review of Systems - Review of Systems Able to Perform ROS?: Yes Comments:: GENERAL/CONSTITUTIONAL: No fever or chills. No weakness. HEAD, EYES, EARS, NOSE AND THROAT: No change in vision. No ear pain or discharge. No sore throat. CARDIOVASCULAR: No chest pain or shortness of breath. RESPIRATORY: No cough, wheezing, or hemoptysis. GASTROINTESTINAL: No nausea, vomiting, diarrhea. +Constipation. +Abdominal pain. GENITOURINARY: No dysuria, frequency, or change in urination. MUSCULOSKELETAL: No joint or muscle swelling or pain. No neck or back pain. SKIN: No rash NEUROLOGIC: No headache, vertigo, loss of consciousness, or change in strength/ sensation. ENDOCRINE: No increased thirst. No abnormal weight change. HEMATOLOGIC/LYMPHATIC: No anemia, easy bleeding, or history of blood clots. ALLERGIC/IMMUNOLOGIC: No hives or skin allergy. *Physical Exam - Physical Exam Comments: GENERAL: Awake, alert, and fully oriented, in no acute distress HEAD: No signs of trauma EYES: PERRLA, EOMI, sclera anicteric, conjunctiva clear ENT: Auricles normal inspection, hearing grossly normal, nares patent, oropharynx clear without exudates. Moist mucosa NECK: Dec ROM (hx surgery), supple, no lymphadenopathy, JVD, or masses. +Well- healed surgical scars. LUNGS: Breath sounds equal, clear to auscultation bilaterally. No wheezes, and no crackles HEART: Regular rate and rhythm, normal S1 and S2, no murmurs, rubs or gallops ABDOMEN: Soft, diffusely tender, +hyperactive bowel sounds. +Guarding, no rebound. +Hepatomegaly. EXTREMITIES: Normal range of motion, no edema. No clubbing or cyanosis. No cords, erythema, or tenderness NEUROLOGICAL: Cranial nerves II through XII grossly intact. Normal speech, normal gait SKIN: Warm, Dry, normal turgor, no rashes or lesions noted. RECTAL: +Multiple small external hemorrhoids. Nontender, no bleeding. ED Treatment Course - LABORATORY CBC & Chemistry Diagram: 07/21/17 07:00 07/21/17 07:00 Medical Decision Making - Medical Decision Making 07/19/17 13:40 Pt with history prior abd surgery, now with constipation, pain, bloating, and hyperactive BS on exam. Will plan for CT to r/o SBO. 07/19/17 17:56 Pt reassessed. She c/o pain, appears uncomfortable. We discussed CT results- colitis, infectious vs inflammatory. Recent diarrhea would align with diagnosis. Given the amount of pain she has had and pain med requirement, will admit. 07/19/17 18:18 D/w Dr. Groves. Requested transfer to [facility] for admission. *DC/Admit/Observation/Transfer Diagnosis at time of Disposition: Colitis Abdominal pain Qualifiers: Abdominal location: generalized Qualified Code(s): R10.84 - Generalized abdominal pain - Discharge Dispostion Condition at time of disposition: Stable Admit: Yes - Referrals - Patient Instructions - Post Discharge Activity
[2017-07-19] MEDS ORDERED: ALBUTEROL SO4 2.5/IPRATROPIUM 0.5 INH SOL 3 ML VIAL.NEB. NEB ONE (12:57)
[2017-07-19] MEDS ORDERED: SODIUM CHLORIDE 1,000 ML IV STA ×2 (13:05→17:56)
[2017-07-19] MEDS ORDERED: morphine CARPU-JECT 4 MG/1 ML DISP.SYRIN IVPUSH ONE ×2 (13:05→17:56)
[2017-07-19] MEDS ORDERED: morphine SULFATE 4 MG/ML VIAL ONE ×2 (13:17→18:05)
[2017-07-19 13:33] LABS: BASO % 0.6 % (0-2.0); EOS % 0.3 % (0-4.5); HEMATOCRIT 38.5 % (32.4-45.2); HEMOGLOBIN 13.1 GM/dl (10.7-15.3); LYMPH % 24.3 % (8-40); MCH 27.1 pg (25.7-33.7); MCHC 34.1 g/dl (32.0-36.0); MEAN CELL VOLUME 79.5 fl (80-96); MEAN PLT VOLUME 8.8 fl (7.5-11.1); MONO % 8.2 % (3.8-10.2); NEUT % 66.6 % (42.8-82.8); PLATELET COUNT 134 K/MM3 (134-434); RBC 4.85 M/mm3 (3.60-5.2); RDW 14.5 % (11.6-15.6); WHITE BLOOD COUNT 5.5 K/mm3 (4.0-10.8)
[2017-07-19 13:52] LABS: INR 1.18 (0.82-1.09); PROTHROMBIN TIME (PATIENT) 13.2 SEC (10.2-13.0)
[2017-07-19 13:56] LABS: ALBUMIN 4.2 g/dl (3.5-5.0); ALK PHOS 119 U/L (32-92); ANION GAP 7 (8-16); BLOOD UREA NITROGEN 10 mg/dl (7-18); CALCIUM 9.2 mg/dl (8.4-10.2); CHLORIDE 102 mmol/L (98-107); CO2 27 mmol/L (22-28); GLUCOSE,RANDOM 112 mg/dl (74-106); POTASSIUM 3.4 mmol/L (3.5-5.1); SGOT/AST 29 U/L (10-42); SGPT/ALT 21 U/L (10-40); SODIUM 136 mmol/L (136-145); TOT PROT 7.4 g/dl (6.4-8.3)
[2017-07-19 14:17] LABS: CREATININE 0.7 mg/dl (0.6-1.3)
[2017-07-19 15:31] LABS: LIPASE 205 U/L (73-393)
[2017-07-19 23:07] VITALS: BMI 28.5
[2017-07-19] MEDS ORDERED: fentaNYL 100mcg/hr PATCH.TD72 TD SCH (23:15)
[2017-07-19] MEDS ORDERED: ONDANSETRON 4 MG/2 ML VIAL IVPB PRN (23:17)
[2017-07-19] MEDS ORDERED: SODIUM CHLORIDE 1,000 ML IV SCH (23:30)
[2017-07-20] MEDS: morphine SULFATE 4 MG/ML VIAL IVPUSH PRN ×4 (00:03→21:50)
[2017-07-20] MEDS: INSULIN SLIDING SCALE (NOVOLOG) 1 VIAL SQ SCH ×4 (06:28→22:24)
[2017-07-20 07:47] LABS: HEMATOCRIT 35.8 % (32.4-45.2); MCH 26.8 pg (25.7-33.7); MCHC 33.4 g/dl (32.0-36.0); MEAN CELL VOLUME 80.2 fl (80-96); MEAN PLT VOLUME 9.1 fl (7.5-11.1); PLATELET COUNT 88 K/MM3 (134-434); RBC 4.46 M/mm3 (3.60-5.2); RDW 15.8 % (11.6-15.6); WHITE BLOOD COUNT 3.4 K/mm3 (4.0-10.0)
[2017-07-20 08:23] LABS: CHLORIDE 106 mmol/L (98-107); POTASSIUM 3.7 mmol/L (3.5-5.1); SODIUM 141 mmol/L (136-145)
[2017-07-20] MEDS: ALBUTEROL SO4 0.083% IH SOL 2.5 MG/3 ML VIAL.NEB. NEB PRN ×2 (08:32→20:24)
[2017-07-20 08:33] LABS: ALBUMIN 3.4 g/dl (3.4-5.0); ALK PHOS 121 U/L (45-117); ANION GAP 10 (8-16); BILIRUBIN,TOTAL 1.1 mg/dL (0.2-1.0); BLOOD UREA NITROGEN 8 mg/dL (7-18); CO2 25 mmol/L (21-32); CREATININE 0.5 mg/dL (0.55-1.02); GLUCOSE,RANDOM 89 mg/dL (74-106); SGOT/AST 21 U/L (15-37); SGPT/ALT 20 U/L (12-78); TOT PROT 6.7 g/dl (6.4-8.2)
[2017-07-20] MEDS ORDERED: ALBUTEROL SO4 18 GM HFA INHALER IH PRN (08:44)
--- NOTE | 2017-07-20 08:50 | HP ---
Admitting History and Physical - Primary Care Physician PCP: Josephine Groves S - Admission Chief Complaint: abdominal pain, colitis History of Present Illness: 47 yo F history HTN, DM, prior spinal surgeries to neck, psoriasis, cirrhosis, anxiety, and depression presenting with 3 days of abdominal pain, progressively worsening. Pain is described as sharp, colicky, severe. She has history of prior abdominal surgery. No N/V/D. She has had some constipation seen by GI dr. Also h/o breast CA recently dx seen by heme onc and breast surgery, sent to [facility] for further management History Source: Patient, Medical Record Limitations to Obtaining History: No Limitations - Past Medical History Cardiovascular: Yes: HTN Pulmonary: Yes: COPD Gastrointestinal: Yes: Gastritis Hepatobiliary: Yes: Cirrhosis ...LMP Comment: last period 14 years ago ...: No Heme/Onc: Yes: Cancer Endocrine: Yes: Diabetes Mellitus - Smoking History Smoking history: Current every day smoker Have you smoked in the past 12 months: Yes Aproximately how many cigarettes per day: 10 - Alcohol/Substance Use Hx Alcohol Use: No History of Substance Use: reports: Prescription - Social History Usual Living Arrangement: Yes: With Child ADL: Independent Occupation: disability History of Recent Travel: No Home Medications - Allergies Allergies/Adverse Reactions: Allergies Allergy/AdvReac Type Severity Reaction Status Date / Time nickel Allergy Intermediate Rash Verified 07/19/17 12:55 titanium Allergy Verified 07/19/17 12:54 - Home Medications Home Medications: Ambulatory Orders Albuterol Sulfate Inhaler - [Ventolin Hfa Inhaler -] 2 inh PO Q4H 07/19/17 Escitalopram Oxalate [Lexapro -] 20 mg PO BID 07/19/17 Esomeprazole Magnesium 40 mg PO DAILY 07/19/17 FENTANYL 100mcg PATCH [DURAGESIC 100mcg PATCH -] 200 mcg TP Q2D 07/19/17 Furosemide [Lasix] 40 mg PO BID 07/19/17 HYDROmorphone [Dilaudid -] 4 mg PO TID PRN 07/19/17 LORazepam [Ativan] 1 mg PO BID 07/19/17 Lactulose 10 gm PO BID 07/19/17 Metformin HCl 500 mg PO BIDAC 07/19/17 Montelukast Sodium [Singulair] 10 mg PO HS 07/19/17 Ondansetron [Zofran *Odt*] 8 mg SL TID 07/19/17 Ranitidine [Zantac -] 150 mg PO DAILY 07/19/17 Metoprolol Succinate 100 mg PO BID 07/20/17 Family Disease History - Family Disease History Family Disease History: CA: Father (lung), Mother (lung) Review of Systems - Review of Systems Constitutional: reports: Loss of Appetite. denies: Chills, Fever, Lethargy Eyes: denies: Blurred Vision, Double Vision HENT: denies: Difficult Swallowing, Throat Pain Neck: reports: Pain on Movement, Stiffness, Tenderness (chronic) Respiratory: denies: Cough, SOB, Wheezing Gastrointestinal: reports: Abdominal Pain, Bloating, Constipation, Nausea. denies: Diarrhea, Rectal Bleeding, Vomiting, Vomiting Blood Genitourinary: denies: Dysuria, Flank Pain, Frequency Musculoskeletal: reports: Back Pain (chronic) Neurological: denies: Change in LOC, Change in Speech, Confusion, Dizziness, Pre -Existing Deficit, Seizure, Syncope, Unsteady Gait, Weakness Endocrine: denies: Intolerance to Cold, Intolerance to Heat Hematology/Lymphatic: denies: Easily Bruised, Excessive Bleeding, Swollen Glands Psychiatric: reports: Anxiety, Depression. denies: Altered Sleep Pattern, Suicidal Physical Examination Vital Signs: Vital Signs Temperature 97.9 F 07/20/17 06:33 Pulse Rate 67 07/20/17 06:33 Respiratory Rate 20 07/20/17 06:33 Blood Pressure 159/82 07/20/17 06:33 O2 Sat by Pulse Oximetry (%) 97 07/19/17 22:30 Constitutional: Yes: No Distress, Calm Eyes: Yes: Conjunctiva Clear HENT: Yes: Atraumatic Neck: Yes: Supple Cardiovascular: Yes: Regular Rate and Rhythm Respiratory: Yes: CTA Bilaterally Gastrointestinal: Yes: Soft, Tenderness (generalized). No: Distention Renal/: No: CVA Tenderness - Left, CVA Tenderness - Right Musculoskeletal: No: Joint Stiffness, Joint Swelling Extremities: No: Cold, Cool, Cyanosis Edema: No Integumentary: Yes: Rash (psoriasis) Neurological: Yes: WNL, Alert, Oriented ...Motor Strength: WNL Psychiatric: Yes: WNL, Alert, Oriented. No: Agitated, Suicidal Ideation Labs: CBC, BMP 07/20/17 06:30 Imaging - Results Chest X-ray: Report Reviewed Other: Report Reviewed Assessment/Plan 47 yo F history HTN, DM, prior spinal surgeries to neck, psoriasis, cirrhosis, anxiety, and depression presenting with 3 days of abdominal pain, progressively worsening. CT c/w colitis admit; IV ATB GI eval also will ask heme onc eval for input, h/o breast CA and pancytopenia pt is on high doses opiates for chronic back and neck pain, d/w pt possible SE falls tolerance dependence, she sees outpt dr Jacobsen for years; advised to taper opiates as much as possible (if possible to off) verified doses fentanyl 200 mcg q48H and dilaudid 4 mg po q4h at home for long time; will ask pain management to comment she is on high doses of lexapro 20 mg po bid said she is seeing a psychiatrist regularly outpt and he prescribed this medication, she asked to have it here too ; see list of meds copy in chart, handed to me by pt also pt asked for vascular sx eval for h/o legs edema, will ask dr Qureshi; h/o neuropathy used to see 2 neurologists outpt asked for another opinion, will ask neuro in consult (can be done outpt d/w pt # given to pt)also d/w pt falls PFX, OOB to chair she is ambulatory; DVT pfx TEDs SCD avoid sq heparin h/o low PLT and liver cirrhosis, also pt low risk since she is ambulatory, walks in the hallway, to the bathroom etc advised stop smoking d/w pt also son present at bedside prognosis guarded t time 75 min
[2017-07-20] MEDS ORDERED: LORazepam 1 MG TABLET PO SCH (10:00)
[2017-07-20] MEDS ORDERED: ESCITALOPRAM OXALATE 20 MG TABLET (FP) PO SCH (10:00)
[2017-07-20] MEDS ORDERED: PT OWN MED DRAWER 7, Y5N ONE ×3 (10:03→17:44)
[2017-07-20] MEDS: PANTOPRAZOLE SODIUM 40 MG VIAL IVPUSH SCH (10:05)
[2017-07-20] MEDS: NICOTINE 14 MG/24 HOURS TOPICAL PATCH TD SCH (10:05)
[2017-07-20] MEDS: METOPROLOL TARTRATE 50 MG TABLET (FP) PO SCH ×2 (10:05→21:53)
[2017-07-20 10:50] LABS: URINE APPEARANCE CLOUDY; URINE BLOOD NEGATIVE (NEGATIVE); URINE COLOR AMBER; URINE GLUCOSE (UA) NEGATIVE (NEGATIVE); URINE KETONE NEGATIVE (NEGATIVE); URINE LEUK ESTERASE TRACE (NEGATIVE); URINE NITRITE NEGATIVE (NEGATIVE); URINE UROBILINOGEN 4.0 E.U/dl mg/dL (0.2-1.0)
[2017-07-20 11:33] LABS: URINE PROTEIN 2+ (NEGATIVE)
[2017-07-20] MEDS ORDERED: INSULIN (NOVOLOG) ASPART 100 UNITS/ML 10ML VIAL ONE ×2 (11:39→21:45)
[2017-07-20 13:04] LABS: EPI CELLS FEW /HPF (FEW); URINE BACTERIA RARE /hpf (NONE SEEN); URINE MUCUS MANY
[2017-07-20] MEDS: LORazepam 1 MG TABLET PO PRN (13:48)
[2017-07-20] MEDS: SODIUM CHLORIDE 1,000 ML IV SCH (17:26)
[2017-07-20] MEDS: RANITIDINE HCL 150 MG TABLET (FP) PO SCH (21:53)
[2017-07-20] MEDS: ESCITALOPRAM OXALATE 20 MG TABLET (FP) PO SCH (21:53)
[2017-07-20] MEDS: PROCHLORPERAZINE MALEATE 5 MG TABLET PO PRN (21:59)
--- NOTE | 2017-07-20 22:29 | CONSULT ---
Consult - text type - Consultation Consultation Note: had diarrhea yesterday and now with constipation 47 yo F history HTN, DM, prior spinal surgeries to neck, psoriasis, cirrhosis, anxiety, and depression presenting with 3 days of abdominal pain, progressively worsening. Pain is described as sharp, colicky, severe. She has history of prior abdominal surgery. No N/V. Also with left breast mass for 9 months--recently diagnosed. Being evaluated at [facility] for managemen,. During work up also noted to have cirrhosis/splenomegaly/ portal HTN/varices. this is a new diagnosis. Was seen by liver team and breast surgery team there--for tumor board discussion on 07/25/17--upfront surgey vs chemotherapy Allergies/Adverse Reactions: Allergies Allergy/AdvReac Type Severity Reaction Status Date / Time nickel Allergy Intermediate Rash Verified 07/19/17 12:55 titanium Allergy Verified 07/19/17 12:54 Home Medications: Ambulatory Orders Furosemide [Lasix] 40 mg PO BID 07/19/17 Metformin HCl 500 mg PO BID 07/19/17 Metoprolol Tartrate 100 mg PO BID 07/19/17 Montelukast Sodium [Singulair] 10 mg PO HS 07/19/17 PMH Asthma: Yes Cancer: Yes (Breast cancer left) Diabetes: Yes HTN: Yes Liver Disease: Yes Psychiatric Problems: Yes (depression, anxiety) chronic opiate dependence - Suicide/Smoking/Psychosocial Hx Smoking History: Current every day smoker P/E GENERAL: Awake, alert, and fully oriented, in no acute distress LUNGS: Breath sounds equal, clear to auscultation bilaterally. HEART: Regular rate and rhythm, normal S1 and S2, no murmurs, rubs or gallops ABDOMEN: Soft, diffusely tender, +hyperactive bowel sounds. no Guarding, no rebound. +Hepatomegaly. EXTREMITIES: Normal range of motion, no edema. No clubbing or cyanosis. No cords, erythema, or tenderness A/P 47 yo F history HTN, DM, psoriasis and psoriatic arthritis, C spine surgery, s/ p several spinal fusions, chronic opiate dependence, chronic constipation, narcotic bowelanxiety, and depression presenting with 3 days of abdominal pain, progressively worsening. Also with left breast mass for 9 months--has been noncompliant with medical f/u- -recently diagnosed. Being evaluated at [facility] for management,. cT2, N0 , triple negative breast cancer. PET-CT negative for mets but incidentally noted cirrhosis For tumor board discussion on 07/25/17 regarding upfront surgery vs chemotherapy Management complicated by incidentally noted cirrhosis/splenomegaly/ portal HTN/ varices--during w/u of breast mass chronic thrombocytopenia due to liver disease/portal HTN Was seen by liver team at [facility] Will discuss with GI Team regarding ?? 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
[2017-07-21] MEDS ORDERED: diphenhydrAMINE HCL 25 MG CAPSULE (FP) PO ONE ×2 (00:30→15:00)
[2017-07-21] MEDS: LORazepam 1 MG TABLET PO PRN ×2 (03:17→15:18)
[2017-07-21] MEDS: morphine SULFATE 4 MG/ML VIAL IVPUSH PRN ×2 (05:55→22:48)
[2017-07-21] MEDS: INSULIN SLIDING SCALE (NOVOLOG) 1 VIAL SQ SCH ×4 (06:01→23:07)
[2017-07-21] MEDS ORDERED: amLODIPine BESYLATE 2.5 MG TABLET (FP) PO ONE (07:15)
[2017-07-21] MEDS ORDERED: diphenhydrAMINE HCL 25 MG CAPSULE (FP) PO PRN (07:23)
--- NOTE | 2017-07-21 07:24 | PN ---
Progress Note, Physician Chief Complaint: slightly better but still abdomen tenderness no BM, no bleed consults and tests reviewed and d/w pt IV ATB, pain meds d/w pt and staff multiple times - Current Medication List Current Medications: Active Medications Albuterol Sulfate (Ventolin 0.083% Nebulizer Soln -) 1 amp NEB Q6H PRN PRN Reason: SHORT OF BREATH/WHEEZING Last Admin: 07/20/17 20:24 Dose: 1 amp Albuterol Sulfate (Ventolin Hfa Inhaler -) 2 puff IH Q4H PRN PRN Reason: WHEEZING Escitalopram Oxalate (Lexapro -) 20 mg PO BID [facility] Last Admin: 07/20/17 21:53 Dose: 20 mg Metronidazole (Flagyl 500mg Premixed Ivpb -) 500 mg in 100 mls @ 100 mls/hr IVPB Q8H-IV [facility] Last Admin: 07/21/17 03:17 Dose: 100 mls/hr Levofloxacin (Levaquin 500 Mg Premixed Ivpb -) 500 mg in 100 mls @ 100 mls/hr IVPB DAILY [facility] Last Admin: 07/20/17 10:05 Dose: 100 mls/hr Sodium Chloride (Normal Saline -) 1,000 mls @ 50 mls/hr IV ASDIR [facility] Last Admin: 07/20/17 17:26 Dose: 50 mls/hr Insulin Aspart (Novolog Vial Sliding Scale -) 1 vial SQ ACHS [facility] PRN Reason: Protocol Last Admin: 07/21/17 06:01 Dose: Not Given Lorazepam (Ativan -) 1 mg PO Q12H PRN PRN Reason: ANXIETY Last Admin: 07/21/17 03:17 Dose: 1 mg Metoprolol Tartrate (Lopressor -) 100 mg PO BID [facility] Last Admin: 07/20/17 21:53 Dose: 100 mg Morphine Sulfate (Morphine Sulfate) 4 mg IVPUSH Q4H PRN PRN Reason: PAIN LEVEL 6-10 Last Admin: 07/21/17 05:55 Dose: 4 mg Nicotine (Nicoderm Patch -) 14 mg TD DAILY [facility] Last Admin: 07/20/17 10:05 Dose: 14 mg Pantoprazole Sodium (Protonix Iv) 40 mg IVPUSH DAILY [facility] Last Admin: 07/20/17 10:05 Dose: 40 mg Prochlorperazine Maleate (Compazine -) 5 mg PO Q4H PRN PRN Reason: NAUSEA AND/OR VOMITING Last Admin: 07/20/17 21:59 Dose: 5 mg Ranitidine HCl (Zantac -) 150 mg PO HS [facility] Last Admin: 07/20/17 21:53 Dose: 150 mg - Objective Vital Signs: Vital Signs Temperature 98.8 F 07/21/17 06:00 Pulse Rate 62 07/21/17 06:00 Respiratory Rate 20 07/21/17 06:00 Blood Pressure 193/89 07/21/17 06:00 O2 Sat by Pulse Oximetry (%) 98 07/20/17 09:00 Constitutional: Yes: No Distress, Calm Eyes: Yes: Conjunctiva Clear HENT: Yes: Atraumatic Neck: Yes: Supple Cardiovascular: Yes: Regular Rate and Rhythm Respiratory: Yes: CTA Bilaterally Gastrointestinal: Yes: Soft, Tenderness (gen). No: Distention Genitourinary: No: CVA Tenderness - Left, CVA Tenderness - Right, Hematuria Musculoskeletal: No: Joint Stiffness, Joint Swelling Extremities: No: Cold, Cool, Cyanosis Edema: No Integumentary: Yes: Rash (psoriasis) Neurological: Yes: WNL, Alert, Oriented ...Motor Strength: WNL Psychiatric: Yes: WNL, Alert, Oriented. No: Agitated, Suicidal Ideation Labs: CBC, BMP 07/20/17 06:30 07/20/17 06:30 INR, PTT INR 1.18 (0.82-1.09) 07/19/17 13:15 - ....Imaging Other: Report Reviewed Assessment/Plan 47 yo F history HTN, DM, prior spinal surgeries to neck, psoriasis, cirrhosis, anxiety, and depression presenting with 3 days of abdominal pain, progressively worsening. CT c/w colitis admit; IV ATB GI eval, iv PPI also will ask heme onc eval for input, h/o breast CA and pancytopenia pt is on high doses opiates for chronic back and neck pain, d/w pt possible SE falls tolerance dependence, she sees outpt dr Jacobsen for years; advised to taper opiates as much as possible (if possible to off) verified doses fentanyl 200 mcg q48H and dilaudid 4 mg po q4h at home for long time; called dr Collins pain management to comment also pt asked for vascular sx eval for h/o legs edema, called dr Leyva; h/o neuropathy used to see 2 neurologists outpt asked for another opinion, will ask neuro in consult (can be done outpt d/w pt # given to pt)also d/w pt falls PFX, OOB to chair she is ambulatory; DVT pfx TEDs SCD avoid sq heparin h/o low PLT and liver cirrhosis, also pt low risk since she is ambulatory, walks in the hallway, to the bathroom etc advised stop smoking d/w pt and staff prognosis guarded t time 45 min
[2017-07-21 08:33] LABS: BASO % 0.7 % (0-2.0); EOS % 1.6 % (0-4.5); HEMATOCRIT 34.9 % (32.4-45.2); HEMOGLOBIN 11.5 GM/dL (10.7-15.3); LYMPH % 37.8 % (8-40); MCH 26.6 pg (25.7-33.7); MCHC 32.9 g/dl (32.0-36.0); MEAN CELL VOLUME 80.7 fl (80-96); MEAN PLT VOLUME 9.3 fl (7.5-11.1); MONO % 8.8 % (3.8-10.2); NEUT % 51.1 % (42.8-82.8); PLATELET COUNT 86 K/MM3 (134-434); RBC 4.32 M/mm3 (3.60-5.2); WHITE BLOOD COUNT 2.8 K/mm3 (4.0-10.0)
[2017-07-21 08:54] LABS: ALBUMIN 3.5 g/dl (3.4-5.0); ANION GAP 11 (8-16); BLOOD UREA NITROGEN 13 mg/dL (7-18); CALCIUM 8.7 mg/dL (8.5-10.1); CHLORIDE 106 mmol/L (98-107); CO2 25 mmol/L (21-32); CREATININE 0.6 mg/dL (0.55-1.02); GLUCOSE,RANDOM 83 mg/dL (74-106); POTASSIUM 3.5 mmol/L (3.5-5.1); SGOT/AST 21 U/L (15-37); SGPT/ALT 20 U/L (12-78); SODIUM 142 mmol/L (136-145)
[2017-07-21 09:17] LABS: ALK PHOS 112 U/L (45-117); BILIRUBIN,TOTAL 0.9 mg/dL (0.2-1.0); TOT PROT 6.3 g/dl (6.4-8.2)
[2017-07-21 10:32] LABS: ERYTHROCYTE SEDIMENTATION RATE 7 mm/hr (0-20)
[2017-07-21] MEDS: NICOTINE 14 MG/24 HOURS TOPICAL PATCH TD SCH (11:27)
[2017-07-21] MEDS: METOPROLOL TARTRATE 50 MG TABLET (FP) PO SCH ×2 (11:27→22:47)
[2017-07-21] MEDS: ESCITALOPRAM OXALATE 20 MG TABLET (FP) PO SCH ×2 (11:27→22:47)
[2017-07-21] MEDS: PANTOPRAZOLE SODIUM 40 MG VIAL IVPUSH SCH (11:27)
[2017-07-21] MEDS ORDERED: INSULIN (NOVOLOG) ASPART 100 UNITS/ML 10ML VIAL ONE (11:43)
[2017-07-21] MEDS: ALBUTEROL SO4 0.083% IH SOL 2.5 MG/3 ML VIAL.NEB. NEB PRN (12:13)
[2017-07-21] MEDS ORDERED: LACTULOSE 20 GM/30 ML UDC (FOR ORAL USE ONLY) PO PRN (14:33)
[2017-07-21] MEDS ORDERED: FENTANYL PATCH WASTE MC PRN (14:35)
[2017-07-21] MEDS ORDERED: fentaNYL 100mcg/hr PATCH.TD72 TD SCH ×2 (14:45)
--- NOTE | 2017-07-21 16:04 | PN ---
Progress Note (short form) - Note Progress Note: Patient seen and examined Tolerating some p.o. Cramps persist , albeit somewhat improved Last Vital Signs Temp Pulse Resp BP Pulse Ox 98.4 F 84 16 150/78 100 07/21/17 14:58 07/21/17 14:58 07/21/17 14:58 07/21/17 14:58 07/21/17 09:00 HEENT: RICK, EOM Intact Oropharynx: No thrush, No mucositis Cor: RSR, No murmurs, No gallops Lungs: Clear to P&A Abd: Soft, Normal bowel sounds, liver tender , 6 cm below RCM Ext:No significant edema Skin:nummular psoriasis, Integument intact CBC, BMP 07/21/17 07:00 07/21/17 07:00 Current Medications Generic Name Dose Route Start Last Admin Trade Name Freq PRN Reason Stop Dose Admin Albuterol Sulfate 1 amp 07/19/17 23:24 07/21/17 12:13 Ventolin 0.083% Nebulizer Soln - NEB 1 amp Q6H PRN Administration SHORT OF BREATH/WHEEZING Albuterol Sulfate 2 puff 07/20/17 08:44 Ventolin Hfa Inhaler - IH Q4H PRN WHEEZING Amlodipine Besylate 2.5 mg 07/22/17 10:00 Norvasc - PO DAILY ANY Diphenhydramine HCl 25 mg 07/21/17 07:23 Benadryl - PO HS PRN INSOMNIA Escitalopram Oxalate 20 mg 07/20/17 22:00 07/21/17 11:27 Lexapro - PO 20 mg BID ANY Administration Fentanyl 2 patch 07/21/17 14:45 07/21/17 15:18 Duragesic 100mcg Patch - TD 07/28/17 14:35 2 patch Q72H ANY Administration Metronidazole 500 mg in 100 mls @ 100 mls/hr 07/20/17 10:00 07/21/17 11:27 Flagyl 500mg Premixed Ivpb - IVPB 100 mls/hr Q8H-IV ANY Administration Levofloxacin 500 mg in 100 mls @ 100 mls/hr 07/20/17 10:00 07/21/17 13:02 Levaquin 500 Mg Premixed Ivpb - IVPB 100 mls/hr DAILY ANY Administration Sodium Chloride 1,000 mls @ 50 mls/hr 07/20/17 15:53 07/20/17 17:26 Normal Saline - IV 50 mls/hr ASDIR ANY Administration Insulin Aspart 1 vial 07/20/17 07:00 07/21/17 11:47 Novolog Vial Sliding Scale - SQ Not Given ACHS [facility] Protocol Lactulose 20 gm 07/21/17 14:33 07/21/17 14:56 Cephulac (Oral Use) PO 20 gm ONCE PRN Administration CONSTIPATION Lorazepam 1 mg 07/19/17 23:37 07/21/17 15:18 Ativan - PO 1 mg Q12H PRN Administration ANXIETY Metoprolol Tartrate 100 mg 07/20/17 10:00 07/21/17 11:27 Lopressor - PO 100 mg BID ANY Administration Miscellaneous 1 each 07/21/17 14:35 Duragesic Patch Waste MC PRN PRN PAIN Nicotine 14 mg 07/20/17 10:00 07/21/17 11:27 Nicoderm Patch - TD 14 mg DAILY ANY Administration Pantoprazole Sodium 40 mg 07/20/17 10:00 07/21/17 11:27 Protonix Iv IVPUSH 40 mg DAILY ANY Administration Prochlorperazine Maleate 5 mg 07/20/17 08:52 07/20/17 21:59 Compazine - PO 5 mg Q4H PRN Administration NAUSEA AND/OR VOMITING Ranitidine HCl 150 mg 07/20/17 22:00 07/20/17 21:53 Zantac - PO 150 mg HS ANY Administration Impression: Triple negative breast ca Cirrhosis Hypersplenism /portal hypertension Thrombocytopenia Neutropenia Colitis Falling WBC somewhat worrisome. ?? secondary to colitis, ??? secondary to meds To monitor carefully.
--- NOTE | 2017-07-21 16:55 | CON.GI ---
Consult Consult Specialty:: Gastroenterology Referred by:: Dr. 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 She got frustrated with Miralax so I tried Movantik in 10/01. It caused cramps and brisk bowel movements which caused her to abandon it. More recently she has been pressing on her perineum to help her expel nard stools. She denies bleeding. Her abdominal pain has resolved with antibiotics which were staretd when her CT scan was read as left colon " colitis" on the basis of wall thickening vs underdistension. She is tolerating her diet. We discussed colonoscopy. She believes that I did a colonoscopy in 2004 but I cannot locate any evidence for it. I explained that she would need a prep over several days and would need to at least drink a gallon of Golytely daily x 2 or 3 days. She does not feel that she could do this. I also informed her that she has gastric varices on her CT scan. I advised that she have her EGD at [facility] where she is known to the [facility] team and where linnette can offer injection of glue and/or TIPS if deemed necessary. I did advised her to take a probiotic when she completes her current course of antibiotics to try to prevent C diff colitis. 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 Anxiety disorder. Narcotic addiction - Past Surgical History Past Surgical History: Yes: Laminectomy (C spine discectomy and fusion [facility] 2005, repeat fusion 2006, cervical hardware removed at 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 Place of : [facility] Home Medications - Allergies Allergies/Adverse Reactions: Allergies Allergy/AdvReac Type Severity Reaction Status Date / Time nickel Allergy Intermediate Rash Verified 07/19/17 12:55 titanium Allergy Verified 07/19/17 12:54 - Home Medications Home Medications: Ambulatory Orders Albuterol Sulfate Inhaler - [Ventolin Hfa Inhaler -] 2 inh PO Q4H 07/19/17 Escitalopram Oxalate [Lexapro -] 20 mg PO BID 07/19/17 Esomeprazole Magnesium 40 mg PO DAILY 07/19/17 FENTANYL 100mcg PATCH [DURAGESIC 100mcg PATCH -] 200 mcg TP Q2D 07/19/17 Furosemide [Lasix] 40 mg PO BID 07/19/17 HYDROmorphone [Dilaudid -] 4 mg PO TID PRN 07/19/17 LORazepam [Ativan] 1 mg PO BID 07/19/17 Lactulose 10 gm PO BID 07/19/17 Metformin HCl 500 mg PO BIDAC 07/19/17 Montelukast Sodium [Singulair] 10 mg PO HS 07/19/17 Ondansetron [Zofran *Odt*] 8 mg SL TID 07/19/17 Ranitidine [Zantac -] 150 mg PO DAILY 07/19/17 Metoprolol Succinate 100 mg PO BID 07/20/17 Family Disease History - Family Disease History Family Disease History: Heart Disease: Father ( 70,severe peripheral vascular disease), CA: Mother ( 68 lung cancer) Review of Systems - Review of Systems Constitutional: reports: Lethargy, Malaise, Unintentional Wgt. Loss, Weakness Eyes: reports: No Symptoms HENT: reports: No Symptoms Neck: reports: Decreased ROM, Pain on Movement, Stiffness, Tenderness Cardiovascular: reports: Palpitations Respiratory: reports: Exercise Intolerance, SOB on Exertion Gastrointestinal: reports: Abdominal Pain, Bloating, Constipation, Nausea Musculoskeletal: reports: Back Pain, Joint Pain, Muscle Pain, Muscle Cramps, Muscle Weakness Integumentary: reports: Lesions (related to psoriatic arthritis) Endocrine: reports: Flushing Hematology/Lymphatic: reports: Easily Bruised Psychiatric: reports: Anxiety Physical Exam-GI Vital Signs: Vital Signs Temperature 98.4 F 07/21/17 14:58 Pulse Rate 84 07/21/17 14:58 Respiratory Rate 16 07/21/17 14:58 Blood Pressure 150/78 07/21/17 14:58 O2 Sat by Pulse Oximetry (%) 100 07/21/17 09:00 CBC,CMP WBC 2.8 K/mm3 (4.0-10.0) L 07/21/17 07:00 RBC 4.32 M/mm3 (3.60-5.2) 07/21/17 07:00 Hgb 11.5 GM/dL (10.7-15.3) 07/21/17 07:00 Hct 34.9 % (32.4-45.2) 07/21/17 07:00 MCV 80.7 fl (80-96) 07/21/17 07:00 MCH 26.6 pg (25.7-33.7) 07/21/17 07:00 MCHC 32.9 g/dl (32.0-36.0) 07/21/17 07:00 RDW 16.0 % (11.6-15.6) H 07/21/17 07:00 Plt Count 86 K/MM3 (134-434) L 07/21/17 07:00 MPV 9.3 fl (7.5-11.1) 07/21/17 07:00 Neutrophils % 51.1 % (42.8-82.8) 07/21/17 07:00 Lymphocytes % 37.8 % (8-40) 07/21/17 07:00 Monocytes % 8.8 % (3.8-10.2) 07/21/17 07:00 Eosinophils % 1.6 % (0-4.5) 07/21/17 07:00 Basophils % 0.7 % (0-2.0) 07/21/17 07:00 ESR 7 mm/hr (0-20) 07/21/17 07:00 Sodium 142 mmol/L (136-145) 07/21/17 07:00 Potassium 3.5 mmol/L (3.5-5.1) 07/21/17 07:00 Chloride 106 mmol/L (98-107) 07/21/17 07:00 Carbon Dioxide 25 mmol/L (21-32) 07/21/17 07:00 Anion Gap 11 (8-16) 07/21/17 07:00 BUN 13 mg/dL (7-18) 07/21/17 07:00 Creatinine 0.6 mg/dL (0.55-1.02) 07/21/17 07:00 Creat Clearance w eGFR > 60 (>60) 07/21/17 07:00 POC Glucometer 106 UNITS (80-120) 07/21/17 11:46 Random Glucose 83 mg/dL (74-106) 07/21/17 07:00 Calcium 8.7 mg/dL (8.5-10.1) 07/21/17 07:00 Magnesium 2.0 mg/dL (1.8-2.4) 07/21/17 07:00 Total Bilirubin 0.9 mg/dL (0.2-1.0) 07/21/17 07:00 AST 21 U/L (15-37) 07/21/17 07:00 ALT 20 U/L (12-78) 07/21/17 07:00 Alkaline Phosphatase 112 U/L (45-117) 07/21/17 07:00 C-Reactive Protein < 0.3 MG/DL (0.00-0.3) 07/21/17 07:00 Total Protein 6.3 g/dl (6.4-8.2) L 07/21/17 07:00 Albumin 3.5 g/dl (3.4-5.0) 07/21/17 07:00 Lipase 205 U/L (73-393) 07/19/17 13:15 Current Medications Generic Name Dose Route Start Last Admin Trade Name Freq PRN Reason Stop Dose Admin Albuterol Sulfate 1 amp 07/19/17 23:24 07/21/17 12:13 Ventolin 0.083% Nebulizer Soln - NEB 1 amp Q6H PRN Administration SHORT OF BREATH/WHEEZING Albuterol Sulfate 2 puff 07/20/17 08:44 Ventolin Hfa Inhaler - IH Q4H PRN WHEEZING Amlodipine Besylate 2.5 mg 07/22/17 10:00 Norvasc - PO DAILY ANY Diphenhydramine HCl 25 mg 07/21/17 07:23 Benadryl - PO HS PRN INSOMNIA Escitalopram Oxalate 20 mg 07/20/17 22:00 07/21/17 11:27 Lexapro - PO 20 mg BID ANY Administration Fentanyl 2 patch 07/21/17 14:45 07/21/17 15:18 Duragesic 100mcg Patch - TD 07/28/17 14:35 2 patch Q72H ANY Administration Metronidazole 500 mg in 100 mls @ 100 mls/hr 07/20/17 10:00 07/21/17 11:27 Flagyl 500mg Premixed Ivpb - IVPB 100 mls/hr Q8H-IV ANY Administration Levofloxacin 500 mg in 100 mls @ 100 mls/hr 07/20/17 10:00 07/21/17 13:02 Levaquin 500 Mg Premixed Ivpb - IVPB 100 mls/hr DAILY ANY Administration Sodium Chloride 1,000 mls @ 50 mls/hr 07/20/17 15:53 07/20/17 17:26 Normal Saline - IV 50 mls/hr ASDIR ANY Administration Insulin Aspart 1 vial 07/20/17 07:00 07/21/17 11:47 Novolog Vial Sliding Scale - SQ Not Given ACHS [facility] Protocol Lactulose 20 gm 07/21/17 14:33 07/21/17 14:56 Cephulac (Oral Use) PO 20 gm ONCE PRN Administration CONSTIPATION Lorazepam 1 mg 07/19/17 23:37 07/21/17 15:18 Ativan - PO 1 mg Q12H PRN Administration ANXIETY Metoprolol Tartrate 100 mg 07/20/17 10:00 07/21/17 11:27 Lopressor - PO 100 mg BID ANY Administration Miscellaneous 1 each 07/21/17 14:35 Duragesic Patch Waste MC PRN PRN PAIN Nicotine 14 mg 07/20/17 10:00 07/21/17 11:27 Nicoderm Patch - TD 14 mg DAILY ANY Administration Pantoprazole Sodium 40 mg 07/20/17 10:00 07/21/17 11:27 Protonix Iv IVPUSH 40 mg DAILY ANY Administration Prochlorperazine Maleate 5 mg 07/20/17 08:52 07/20/17 21:59 Compazine - PO 5 mg Q4H PRN Administration NAUSEA AND/OR VOMITING Ranitidine HCl 150 mg 07/20/17 22:00 07/20/17 21:53 Zantac - PO 150 mg HS ANY Administration Constitutional: Yes: No Distress HENT: Yes: Normocephalic Neck: Yes: Supple, Decreased ROM, Other (anterior and posterior incisions) Cardiovascular: Yes: Regular Rate and Rhythm, Murmur (1/6 JOSLYN) Respiratory: Yes: CTA Bilaterally Gastrointestinal Inspection: Yes: Distention, Scars (healed laparoscopic incisions) ...Auscultate: Yes: Hypoactive Bowel Sounds ...Palpate: Yes: Soft, Other (nontender) ...Percussion: Yes: Tympanitic ...Rectal Exam: Yes: Guaiac Negative, Hemorrhoids/External, Sphincter Tone Normal, Other (skin tags, no vault masses) Labs: CBC, BMP 07/21/17 07:00 07/21/17 07:00 INR, PTT INR 1.18 (0.82-1.09) 07/19/17 13:15 Imaging - Results Cat Scan: Report Reviewed (Joselin Dwyer Name: TONI GONZALEZ DEPARTMENT OF RADIOLOGY Phys: Amira Moulton MD : 1970 Age: 47 Sex: F [facility] Acct: [id number] Loc: [address] Exam Date: 07/19/17 Status: REG ER [place]E [place] [id number] Unit Number: [id number] EXAM#: TYPE/EXAM: RESULT: [id number] CT/ABDOMEN PELVIS CT WITH CONTR ADDENDUM* ADDENDUM #1 The final impression should also include findings described in the body of the report regarding the 1.3 cm right renal lesion. Final impression is as follows: IMPRESSION: 1. No evidence of small bowel obstruction. 2. Long segment circumferential prominent wall in the rectum, sigmoid and descending colon may be secondary to underdistention, portal enteropathy or a nonspecific infectious versus inflammatory colitis. Please correlate clinically. 3. Cirrhotic configuration of the liver with portal hypertension manifested by moderate splenomegaly, gastric varices and robust collaterals, unchanged. 4. Cholelithiasis and/or sludge with gallbladder wall thickening, similar to the prior exam. No bile ductal dilatation. Gallbladder wall thickening is nonspecific with a broad differential for etiologies including cholecystitis, cirrhosis and adjacent right upper quadrant inflammatory processes. 5. A 1.3 cm lesion in the upper pole of the right kidney may be a cyst with proteinaceous contents , however, solid lesion cannot be excluded. Please correlate with nonemergent right renal sonogram. 6. Please refer to the report for other findings. ORIGINAL REPORT INDICATION: Clinical suspicion for small bowel obstruction. TECHNIQUE: CT scan of the abdomen and pelvis without oral contrast, following the intravenous administration of 82 mL of Omnipaque 350 contrast. COMPARISON: 06/19/2017 CT abdomen/pelvis. FINDINGS: There are several calcified granulomas in bilateral lung bases. The heart is not enlarged. The liver is normal size with nodular contour. There are multiple punctate calcifications scattered within the right hepatic lobe which are most likely the sequela of prior granulomatous disease. There is moderate splenomegaly measuring approximately 16 x 9 cm, unchanged. The portal vein is patent. There is evidence of portal hypertension manifested by prominent lenorenal collaterals, gastric varices and left internal iliac venous collaterals. The gallbladder is not pathologically distended. There is extensive cholelithiasis and/or gallbladder sludge. There is gallbladder wall thickening. There is no evidence of biliary ductal dilatation. The pancreas is unremarkable. There is no adrenal gland mass or nodule. The kidneys are normal size with symmetric cortical enhancement. There is no hydroureteronephrosis. There is a 1.3 cm hypodense lesion in the upper pole cortex of the right kidney, unchanged in size from prior. This measures more than simple fluid attenuation. Normal caliber abdominal aorta with moderate calcified and noncalcified atheromatous plaque including all branch vessels. Multiple prominent tam hepatic, portacaval and aortocaval lymph nodes are similar size to the prior exam. Evaluation of the bowel is limited without oral contrast. There are no dilated loops of large or small bowel to suggest obstruction. The majority of the colon is underdistended, limiting evaluation of the wall. A normal-appearing appendix is visualized. There is no evidence of diverticulitis. There is no free intraperitoneal air or ascites. Thickening of right Gerota's fascia with adjacent fat stranding is nonspecific, similar to the prior exam. The urinary bladder is well distended with no definite wall thickening and no evidence of calculus. The uterus is unremarkable. There is osseous demineralization with no evidence of acute fracture. There is lumbar spondylosis. IMPRESSION: 1. No evidence of small bowel obstruction. 2. Long segment circumferential prominent wall in the rectum, sigmoid and descending colon may be secondary to underdistention, portal enteropathy or a nonspecific infectious versus inflammatory colitis. Please correlate clinically. 3. Cirrhotic configuration of the liver with portal hypertension manifested by moderate splenomegaly, gastric varices and robust collaterals, unchanged. 4. Cholelithiasis and/or sludge with gallbladder wall thickening, similar to the prior exam. No bile ductal dilatation. Gallbladder wall thickening is nonspecific with a broad differential for etiologies including cholecystitis, cirrhosis and adjacent right upper quadrant inflammatory processes. 5. Please refer to the report above for other findings. Reported By: Marija Vernon DO 07/19/17 1744 INDICATION: Clinical suspicion for small bowel obstruction. TECHNIQUE: CT scan of the abdomen and pelvis without oral contrast, following the intravenous administration of 82 mL of Omnipaque 350 contrast. COMPARISON: 06/19/2017 CT abdomen/pelvis. FINDINGS: There are several calcified granulomas in bilateral lung bases. The heart is not enlarged. The liver is normal size with nodular contour. There are multiple punctate calcifications scattered within the right hepatic lobe which are most likely the sequela of prior granulomatous disease. There is moderate splenomegaly measuring approximately 16 x 9 cm, unchanged. The portal vein is patent. There is evidence of portal hypertension manifested by prominent lenorenal collaterals, gastric varices and left internal iliac venous collaterals. The gallbladder is not pathologically distended. There is extensive cholelithiasis and/or gallbladder sludge. There is gallbladder wall thickening. There is no evidence of biliary ductal dilatation. The pancreas is unremarkable. There is no adrenal gland mass or nodule. The kidneys are normal size with symmetric cortical enhancement. There is no hydroureteronephrosis. There is a 1.3 cm hypodense lesion in the upper pole cortex of the right kidney, unchanged in size from prior. This measures more than simple fluid attenuation. Normal caliber abdominal aorta with moderate calcified and noncalcified atheromatous plaque including all branch vessels. Multiple prominent tam hepatic, portacaval and aortocaval lymph nodes are similar size to the prior exam. Evaluation of the bowel is limited without oral contrast. There are no dilated loops of large or small bowel to suggest obstruction. The majority of the colon is underdistended, limiting evaluation of the wall. A normal-appearing appendix is visualized. There is no evidence of diverticulitis. There is no free intraperitoneal air or ascites. Thickening of right Gerota's fascia with adjacent fat stranding is nonspecific, similar to the prior exam. The urinary bladder is well distended with no definite wall thickening and no evidence of calculus. The uterus is unremarkable. There is osseous demineralization with no evidence of acute fracture. There is lumbar spondylosis. IMPRESSION: 1. No evidence of small bowel obstruction. 2. Long segment circumferential prominent wall in the rectum, sigmoid and descending colon may be secondary to underdistention, portal enteropathy or a nonspecific infectious versus inflammatory colitis. Please correlate clinically. 3. Cirrhotic configuration of the liver with portal hypertension manifested by moderate splenomegaly, gastric varices and robust collaterals, unchanged. 4. Cholelithiasis and/or sludge with gallbladder wall thickening, similar to the prior exam. No bile ductal dilatation. Gallbladder wall thickening is nonspecific with a broad differential for etiologies including cholecystitis, cirrhosis and adjacent right upper quadrant inflammatory processes. 5. Please refer to the report above for other findings. Reported By: Marija Vernon DO 07/19/171730 Amira Moulton Technologist: Hiren Irby Transcribed Date/Time: 07/19/171730 Fitter Tacker: Marija Vernon DO Printed Date/Time: By: Signed by: Marija Vernon Signed on: 17:44) Problem List - Problems (1) Narcotic bowel syndrome Assessment/Plan: I believe that Toni's pain, erratic bowel movements and thickened bowel wall on CT reflects chronic fecal impaction due to narcotic bowel. I have advised continuing Miralax and another trial of Movantik as outpatient. I have no GI objections to discharge Code(s): K63.89 - OTHER SPECIFIED DISEASES OF INTESTINE (2) Psoriatic arthritis Code(s): L40.50 - ARTHROPATHIC PSORIASIS, UNSPECIFIED (3) Breast cancer Code(s): C50.919 - MALIGNANT NEOPLASM OF UNSP SITE OF UNSPECIFIED FEMALE BREAST (4) Cirrhosis of liver Assessment/Plan: Compensated cirrhosis but has portal hypertension and gastric varices and thrombocytopenia due to splenomegaly. I have advised her to have an EGD with the liver group at [facility] to assess the severity of her gastric varices and to exclude esophageal varices. If a liver biopsy is deemed necessary I have advised considering a transjugular approach given her bleeding risk. Code(s): K74.60 - UNSPECIFIED CIRRHOSIS OF LIVER (5) Hypertension Code(s): I10 - ESSENTIAL (PRIMARY) HYPERTENSION (6) Hyperlipidemia Code(s): E78.5 - HYPERLIPIDEMIA, UNSPECIFIED (7) Anxiety disorder Code(s): F41.9 - ANXIETY DISORDER, UNSPECIFIED (8) Sleep apnea Code(s): G47.30 - SLEEP APNEA, UNSPECIFIED (9) History of pancreatitis Code(s): Z87.19 - PERSONAL HISTORY OF OTHER DISEASES OF THE DIGESTIVE SYSTEM (10) Asthma Code(s): J45.909 - UNSPECIFIED ASTHMA, UNCOMPLICATED (11) Migraine Code(s): G43.909 - MIGRAINE, UNSP, NOT INTRACTABLE, WITHOUT STATUS MIGRAINOSUS (12) Other ovarian failure Code(s): E28.39 - OTHER PRIMARY OVARIAN FAILURE (13) Cervical radicular pain Code(s): M54.12 - RADICULOPATHY, CERVICAL REGION (14) Cholelithiasis Code(s): K80.20 - CALCULUS OF GALLBLADDER W/O CHOLECYSTITIS W/O OBSTRUCTION Assessment/Plan No GI objections to discharge
[2017-07-21] MEDS: SODIUM CHLORIDE 1,000 ML IV SCH ×2 (17:24→18:43)
--- NOTE | 2017-07-21 17:36 | PN ---
Progress Note (short form) - Note Progress Note: Vascular Surgery Pt seen and examined. Bl lower ext swelling as per pt. Pt has some spider veins on calf. Explained to pt that she should come and see me as a outpt. I will fit her with stockings, get her reflux studies , and if she needs laser therapy for her veins, i will treat her. Please make pt a appt prior to DC -- [phone]. Currently she feels good, since her legs are up in the bed. Nate blue DO
--- NOTE | 2017-07-21 21:52 | CONSULT ---
Consult Consult Specialty:: pain medicine Referred by:: peter Reason for Consultation:: chronic opioid user - History of Present Illness Chief Complaint: abdominal pain History of Present Illness: 47 yo F history HTN, DM, prior spinal surgeries to neck, psoriasis, cirrhosis, anxiety, and depression presenting with 3 days of abdominal pain, progressively worsening. Pain is described as sharp, colicky, severe. She has history of prior abdominal surgery. No N/V. Also with left breast mass for 9 months--recently diagnosed. Being evaluated at [facility] for managemen,. During work up also noted to have cirrhosis/splenomegaly/ portal HTN/varices. this is a new diagnosis. Was seen by liver team and breast surgery team there--for tumor board discussion on 07/25/17--upfront surgey vs chemotherapy Patient requesting IV pain meds - Past Medical History [employer]: Yes: Migraine, Other Cardio/Vascular: Yes: HTN, Hyperlipdemia Pulmonary: Yes: Asthma, Sleep Apnea Gastrointestinal: Yes: Constipation (Narcotic bowel and prone to impactions), Gastritis, GERD, Hiatal Hernia, Pancreatitis (2004 at [facility]), Other (06/24 EGD revealed a duodenal diverticulum and small hiatal hernia but no varices ) Hepatobiliary: Yes: Cirrhosis (likely due to KELLY), Cholelithiasis, 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 Anxiety disorder. Narcotic addiction - Past Surgical History Past Surgical History: Yes: Laminectomy (C spine discectomy and fusion [facility] 2005, repeat fusion 2006, cervical hardware removed at [facility] 2009), Tonsillectomy, Upper Endoscopy Additional Surgical History: left ovarian cystectomy - Alcohol/Substance Use Hx Alcohol Use: No - Smoking History Smoking history: Current every day smoker Have you smoked in the past 12 months: Yes Aproximately how many cigarettes per day: 10 - Social History Usual Living Arrangement: Alone ADL: Family 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 - Allergies Allergies/Adverse Reactions: Allergies Allergy/AdvReac Type Severity Reaction Status Date / Time nickel Allergy Intermediate Rash Verified 07/19/17 12:55 titanium Allergy Verified 07/19/17 12:54 - Home Medications Home Medications: Ambulatory Orders Albuterol Sulfate Inhaler - [Ventolin Hfa Inhaler -] 2 inh PO Q4H 07/19/17 Escitalopram Oxalate [Lexapro -] 20 mg PO BID 07/19/17 Esomeprazole Magnesium 40 mg PO DAILY 07/19/17 FENTANYL 100mcg PATCH [DURAGESIC 100mcg PATCH -] 200 mcg TP Q2D 07/19/17 Furosemide [Lasix] 40 mg PO BID 07/19/17 HYDROmorphone [Dilaudid -] 4 mg PO TID PRN 07/19/17 LORazepam [Ativan] 1 mg PO BID 07/19/17 Lactulose 10 gm PO BID 07/19/17 Metformin HCl 500 mg PO BIDAC 07/19/17 Montelukast Sodium [Singulair] 10 mg PO HS 07/19/17 Ondansetron [Zofran *Odt*] 8 mg SL TID 07/19/17 Ranitidine [Zantac -] 150 mg PO DAILY 07/19/17 Metoprolol Succinate 100 mg PO BID 07/20/17 Family Disease History - Family Disease History Family Disease History: Heart Disease: Father ( 70,severe peripheral vascular disease), CA: Mother ( 68 lung cancer) Physical Exam Vital Signs: Vital Signs Temperature 98.4 F 07/21/17 14:58 Pulse Rate 84 07/21/17 14:58 Respiratory Rate 16 07/21/17 14:58 Blood Pressure 150/78 07/21/17 14:58 O2 Sat by Pulse Oximetry (%) 100 07/21/17 09:00 Labs: CBC, BMP 07/21/17 07:00 07/21/17 07:00 Assessment/Plan Chronic pain Colitis 1. Continue outpatient meds 200mcg Fentanyl q48h Dilaudid 4mg PO q4h prn pain 2. At thistime the patient is tolerating orals- therefore no IV pain meds recommended 3. Recommend she follow up with her outpatient pain doc to wean down opioids
[2017-07-21] MEDS: RANITIDINE HCL 150 MG TABLET (FP) PO SCH (22:48)
[2017-07-22] MEDS: morphine SULFATE 4 MG/ML VIAL IVPUSH PRN ×3 (05:41→22:58)
[2017-07-22] MEDS: METOPROLOL TARTRATE 50 MG TABLET (FP) PO SCH ×3 (06:03→23:07)
[2017-07-22] MEDS: INSULIN SLIDING SCALE (NOVOLOG) 1 VIAL SQ SCH ×2 (06:19→12:07)
--- NOTE | 2017-07-22 06:54 | PN ---
Progress Note, Physician Chief Complaint: seen by GI and pain dr feels better but asked for reglan which helped her in the past with her stomach c/o; d/w pt can interfere with lexapro; will try carafate instead said he rstomach feels very sensitive and she is not ready to take ATB po yet; also asked for IV dilaudid or IV morphine instead of po dilaudid said her abdomen and back pain "are killing her"; d/w pt possible risks and SE; d/w staff hold for sedation or lethargy also has labile HTN started on norvasc 2.5 am yesterday will increase to bid close BP f/u - Current Medication List Current Medications: Active Medications Albuterol Sulfate (Ventolin 0.083% Nebulizer Soln -) 1 amp NEB Q6H PRN PRN Reason: SHORT OF BREATH/WHEEZING Last Admin: 07/21/17 12:13 Dose: 1 amp Albuterol Sulfate (Ventolin Hfa Inhaler -) 2 puff IH Q4H PRN PRN Reason: WHEEZING Amlodipine Besylate (Norvasc -) 2.5 mg PO DAILY [facility] Diphenhydramine HCl (Benadryl -) 25 mg PO HS PRN PRN Reason: INSOMNIA Escitalopram Oxalate (Lexapro -) 20 mg PO BID [facility] Last Admin: 07/21/17 22:47 Dose: Not Given Fentanyl (Duragesic 100mcg Patch -) 2 patch TD Q72H [facility] Stop: 07/28/17 14:35 Last Admin: 07/21/17 15:18 Dose: 2 patch Metronidazole (Flagyl 500mg Premixed Ivpb -) 500 mg in 100 mls @ 100 mls/hr IVPB Q8H-IV [facility] Last Admin: 07/22/17 01:24 Dose: 100 mls/hr Levofloxacin (Levaquin 500 Mg Premixed Ivpb -) 500 mg in 100 mls @ 100 mls/hr IVPB DAILY [facility] Last Admin: 07/21/17 13:02 Dose: 100 mls/hr Sodium Chloride (Normal Saline -) 1,000 mls @ 50 mls/hr IV ASDIR [facility] Last Admin: 07/21/17 18:43 Dose: 50 mls/hr Insulin Aspart (Novolog Vial Sliding Scale -) 1 vial SQ ACHS [facility] PRN Reason: Protocol Last Admin: 07/22/17 06:19 Dose: Not Given Lactulose (Cephulac (Oral Use)) 20 gm PO ONCE PRN PRN Reason: CONSTIPATION Last Admin: 07/21/17 14:56 Dose: 20 gm Lorazepam (Ativan -) 1 mg PO Q12H PRN PRN Reason: ANXIETY Last Admin: 07/21/17 15:18 Dose: 1 mg Metoprolol Tartrate (Lopressor -) 100 mg PO BID [facility] Last Admin: 07/22/17 06:03 Dose: 100 mg Miscellaneous (Duragesic Patch Waste) 1 each MC PRN PRN PRN Reason: PAIN Morphine Sulfate (Morphine Sulfate) 4 mg IVPUSH Q4H PRN PRN Reason: PAIN 6-10 Last Admin: 07/22/17 05:41 Dose: 4 mg Nicotine (Nicoderm Patch -) 14 mg TD DAILY [facility] Last Admin: 07/21/17 11:27 Dose: 14 mg Pantoprazole Sodium (Protonix Iv) 40 mg IVPUSH DAILY [facility] Last Admin: 07/21/17 11:27 Dose: 40 mg Prochlorperazine Maleate (Compazine -) 5 mg PO Q4H PRN PRN Reason: NAUSEA AND/OR VOMITING Last Admin: 07/20/17 21:59 Dose: 5 mg Ranitidine HCl (Zantac -) 150 mg PO HS [facility] Last Admin: 07/21/17 22:48 Dose: 150 mg - Objective Vital Signs: Vital Signs Temperature 98.2 F 07/22/17 05:51 Pulse Rate 68 07/22/17 05:51 Respiratory Rate 18 07/22/17 05:51 Blood Pressure 189/88 07/22/17 05:51 O2 Sat by Pulse Oximetry (%) 98 07/21/17 21:00 Constitutional: Yes: No Distress, Calm Eyes: Yes: Conjunctiva Clear HENT: Yes: Atraumatic Neck: Yes: Supple Cardiovascular: Yes: Regular Rate and Rhythm Respiratory: Yes: CTA Bilaterally Gastrointestinal: Yes: Soft, Tenderness (less) Genitourinary: No: CVA Tenderness - Left, CVA Tenderness - Right Musculoskeletal: No: Joint Stiffness, Joint Swelling Extremities: No: Cold, Cool, Cyanosis Edema: No Integumentary: Yes: Rash. No: Venous Stasis Changes Neurological: Yes: WNL, Alert, Oriented ...Motor Strength: WNL Psychiatric: Yes: WNL, Alert, Oriented. No: Agitated, Suicidal Ideation Labs: CBC, BMP 07/21/17 07:00 07/21/17 07:00 INR, PTT INR 1.18 (0.82-1.09) 07/19/17 13:15 - ....Imaging Other: Report Reviewed Assessment/Plan 47 yo F history HTN, DM, prior spinal surgeries to neck, psoriasis, cirrhosis, anxiety, and depression presenting with 3 days of abdominal pain, progressively worsening. CT c/w colitis colitis: IV ATB GI f/u, po carafate and PPI also will ask heme onc f/u, h/o breast CA and pancytopenia pain meds see above norvasc and metoprolol bid for HTN DVT pfx TEDs SCD avoid sq heparin h/o low PLT and liver cirrhosis, also pt low risk since she is ambulatory, walks in the hallway, to the bathroom etc advised stop smoking d/w pt and staff prognosis guarded t time 40 min
[2017-07-22 08:31] LABS: BASO % 0.8 % (0-2.0); HEMATOCRIT 34.3 % (32.4-45.2); HEMOGLOBIN 11.7 GM/dL (10.7-15.3); LYMPH % 31.9 % (8-40); MCH 27.2 pg (25.7-33.7); MCHC 34.1 g/dl (32.0-36.0); MEAN CELL VOLUME 79.9 fl (80-96); MEAN PLT VOLUME 8.9 fl (7.5-11.1); MONO % 9.4 % (3.8-10.2); NEUT % 55.9 % (42.8-82.8); PLATELET COUNT 99 K/MM3 (134-434); RBC 4.29 M/mm3 (3.60-5.2); RDW 16.2 % (11.6-15.6); WHITE BLOOD COUNT 3.5 K/mm3 (4.0-10.0)
[2017-07-22 09:01] LABS: CHLORIDE 109 mmol/L (98-107); POTASSIUM 3.7 mmol/L (3.5-5.1); SODIUM 143 mmol/L (136-145)
[2017-07-22 09:16] LABS: ALBUMIN 3.5 g/dl (3.4-5.0); ALK PHOS 116 U/L (45-117); ANION GAP 8 (8-16); BILIRUBIN,TOTAL 0.8 mg/dL (0.2-1.0); BLOOD UREA NITROGEN 12 mg/dL (7-18); CALCIUM 8.5 mg/dL (8.5-10.1); CO2 26 mmol/L (21-32); CREATININE 0.7 mg/dL (0.55-1.02); GLUCOSE,RANDOM 123 mg/dL (74-106); SGOT/AST 34 U/L (15-37); SGPT/ALT 33 U/L (12-78); TOT PROT 6.4 g/dl (6.4-8.2)
[2017-07-22 09:22] LABS: INR 1.23 (0.82-1.09); PROTHROMBIN TIME (PATIENT) 13.9 SEC (9.98-11.88)
[2017-07-22 09:23] LABS: ACTIVATED PTT 30.4 SECONDS (26.9-34.4)
[2017-07-22] MEDS ORDERED: PT OWN MED DRAWER 7, Y5N ONE ×3 (09:30→21:41)
[2017-07-22] MEDS: PROCHLORPERAZINE MALEATE 5 MG TABLET PO PRN ×2 (09:33→21:36)
[2017-07-22] MEDS: ESCITALOPRAM OXALATE 20 MG TABLET (FP) PO SCH ×2 (09:33→21:37)
[2017-07-22] MEDS: NICOTINE 14 MG/24 HOURS TOPICAL PATCH TD SCH (09:34)
[2017-07-22] MEDS: PANTOPRAZOLE SODIUM 40 MG VIAL IVPUSH SCH (09:34)
[2017-07-22] MEDS ORDERED: amLODIPine BESYLATE 2.5 MG TABLET (FP) PO SCH (10:00)
[2017-07-22] MEDS ORDERED: SUCRALFATE 1 GM TABLET (FP) PO ONE (13:15)
[2017-07-22] MEDS: SODIUM CHLORIDE 1,000 ML IV SCH (16:35)
--- NOTE | 2017-07-22 18:26 | CONSULT ---
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 Chronic psoriasis/psoriatic arthritis. On immunomodulating Rx until D/C'ed three months ago for "cirhosis." Increased skin lesions since then. Recent discovery of a left Breast Cancer- currently under evaluation. Meds include: albuterol, lexapro (20 mg), esomeprazole, lasix,lactulose, metformin, montelukast, metoprolol, ranitidine and fentanyl (200 ug). Chronic headaches since age 11. Now occurring daily. Usually left-sided throbbing headaches with nausea and photophobia. Chronic neck pain after 3 cervical surgeries in 2005, 2006, and 2009. On fentanyl patch since 2006. Now 6 months of progressive numbness, tingling and burning nocturnal pains in both feet, ankles and distal calves. Feet painful and stiff when first baring weight but then improves. [place]: Well-healed cervical scars. Decreased neck ROM. Diffuse psoriatic patches. No bruits. NEURO: Tearful, withdrawn and depressed. MS/Speech: Normal CN II-XII: Normal Motor: No drift. Normal strength throughout. Normal reflexes including AJ's. Toes downgoing. Coord: No FTN dystaxia Sensory: Normal Gait: Antalgic both feet. IMP: Normal neurological exam Migraine headaches Restless legs syndrome. No clinical evidence for peripheral neuropathy. Depression SUGGEST: Check Fe++, TIBC, Ferritin, B12, CK Check GGPT Try pramipexole beginning with 0.125 mg BID after food for 2 days , then .25 BID Out patient neuro F/U for EMG/NCS and medication adjustments. If the LFT's remain normal I would consider migraine prophylactic Rx such as Protriptyline 10 mg PO q HS. Thank you very much, Willem Valenzuela MD
[2017-07-22] MEDS: RANITIDINE HCL 150 MG TABLET (FP) PO SCH (21:36)
[2017-07-22] MEDS: amLODIPine BESYLATE 2.5 MG TABLET (FP) PO SCH (21:38)
[2017-07-22] MEDS: PRAMIPEXOLE DIHYDROCHLORIDE 0.125 MG TABLET PO SCH (21:38)
[2017-07-22] MEDS: SUCRALFATE 1 GM TABLET (FP) PO SCH (22:58)
[2017-07-22] MEDS ORDERED: diphenhydrAMINE HCL 25 MG CAPSULE (FP) PO ONE (23:42)
[2017-07-23] MEDS: ALBUTEROL SO4 0.083% IH SOL 2.5 MG/3 ML VIAL.NEB. NEB PRN (05:20)
[2017-07-23] MEDS: INSULIN SLIDING SCALE (NOVOLOG) 1 VIAL SQ SCH (06:09)
--- NOTE | 2017-07-23 07:34 | PN ---
Progress Note, Physician Chief Complaint: d/w pt tests and consults; she could go home on po ATB but said she can not take po Flagyl; will go after tomorrow iv doses pt asked me to order BRCA gene testing in hospital, I inquired with labs but not possible; should do it outpt with heme onc and breast sx - she said she will feels better [facility] - Current Medication List Current Medications: Active Medications Albuterol Sulfate (Ventolin 0.083% Nebulizer Soln -) 1 amp NEB Q6H PRN PRN Reason: SHORT OF BREATH/WHEEZING Last Admin: 07/23/17 05:20 Dose: 1 amp Albuterol Sulfate (Ventolin Hfa Inhaler -) 2 puff IH Q4H PRN PRN Reason: WHEEZING Amlodipine Besylate (Norvasc -) 2.5 mg PO BID [facility] Last Admin: 07/22/17 21:38 Dose: 2.5 mg Escitalopram Oxalate (Lexapro -) 20 mg PO BID [facility] Last Admin: 07/22/17 21:37 Dose: 20 mg Fentanyl (Duragesic 100mcg Patch -) 2 patch TD Q72H [facility] Stop: 07/28/17 14:35 Last Admin: 07/21/17 15:18 Dose: 2 patch Metronidazole (Flagyl 500mg Premixed Ivpb -) 500 mg in 100 mls @ 100 mls/hr IVPB Q8H-IV [facility] Last Admin: 07/23/17 01:59 Dose: 100 mls/hr Levofloxacin (Levaquin 500 Mg Premixed Ivpb -) 500 mg in 100 mls @ 100 mls/hr IVPB DAILY [facility] Last Admin: 07/22/17 11:31 Dose: 100 mls/hr Sodium Chloride (Normal Saline -) 1,000 mls @ 50 mls/hr IV ASDIR [facility] Last Admin: 07/22/17 16:35 Dose: 50 mls/hr Insulin Aspart (Novolog Vial Sliding Scale -) 1 vial SQ ACBK ANY PRN Reason: Protocol Last Admin: 07/23/17 06:09 Dose: Not Given Lactulose (Cephulac (Oral Use)) 20 gm PO ONCE PRN PRN Reason: CONSTIPATION Last Admin: 07/21/17 14:56 Dose: 20 gm Lorazepam (Ativan -) 1 mg PO Q12H PRN PRN Reason: ANXIETY Last Admin: 07/21/17 15:18 Dose: 1 mg Metoprolol Tartrate (Lopressor -) 100 mg PO BID [facility] Last Admin: 07/22/17 23:07 Dose: Not Given Miscellaneous (Duragesic Patch Waste) 1 each MC PRN PRN PRN Reason: PAIN Morphine Sulfate (Morphine Sulfate) 4 mg IVPUSH Q4H PRN PRN Reason: PAIN 6-10 Last Admin: 07/22/17 22:58 Dose: 4 mg Nicotine (Nicoderm Patch -) 14 mg TD DAILY [facility] Last Admin: 07/22/17 09:34 Dose: 14 mg Pantoprazole Sodium (Protonix -) 40 mg PO DAILY [facility] Pramipexole Dihydrochloride (Mirapex -) 0.125 mg PO BID [facility] Last Admin: 07/22/17 21:38 Dose: 0.125 mg Prochlorperazine Maleate (Compazine -) 5 mg PO Q4H PRN PRN Reason: NAUSEA AND/OR VOMITING Last Admin: 07/22/17 21:36 Dose: 5 mg Ranitidine HCl (Zantac -) 150 mg PO HS [facility] Last Admin: 07/22/17 21:36 Dose: 150 mg Sucralfate (Carafate -) 1 gm PO BID [facility] Last Admin: 07/22/17 22:58 Dose: 1 gm - Objective Vital Signs: Vital Signs Temperature 98.1 F 07/23/17 06:00 Pulse Rate 77 07/23/17 06:00 Respiratory Rate 20 07/23/17 06:00 Blood Pressure 158/78 07/23/17 06:00 O2 Sat by Pulse Oximetry (%) 98 07/22/17 21:00 Constitutional: Yes: No Distress, Calm Eyes: Yes: Conjunctiva Clear HENT: Yes: Atraumatic Neck: Yes: Supple Cardiovascular: Yes: Regular Rate and Rhythm Respiratory: Yes: CTA Bilaterally Gastrointestinal: Yes: Soft. No: Distention, Tenderness Genitourinary: No: CVA Tenderness - Left, CVA Tenderness - Right Musculoskeletal: No: Joint Stiffness, Joint Swelling Extremities: No: Cold, Cool, Cyanosis Edema: No Integumentary: No: Rash, Venous Stasis Changes Neurological: Yes: WNL, Alert, Oriented ...Motor Strength: WNL Psychiatric: Yes: WNL, Alert, Oriented. No: Agitated, Suicidal Ideation Labs: CBC, BMP 07/22/17 06:30 07/22/17 06:30 INR, PTT INR 1.23 (0.82-1.09) H 07/22/17 06:30 Fibrinogen 197.0 mg/dL (238-498) L 07/22/17 06:30 - ....Imaging Other: Report Reviewed Assessment/Plan 47 yo F history HTN, DM, prior spinal surgeries to neck, psoriasis, cirrhosis, anxiety, and depression presenting with 3 days of abdominal pain, progressively worsening. CT c/w colitis IV ATB GI f/u, po carafate and PPI pain meds see above norvasc and metoprolol bid for HTN DVT pfx TEDs SCD avoid sq heparin h/o low PLT and liver cirrhosis to f/u for outpt BRCA gene testing see above d/w pt and staff prognosis guarded t time 40 min
[2017-07-23] MEDS ORDERED: PT OWN MED DRAWER 7, Y5N ONE ×4 (09:40→22:22)
[2017-07-23] MEDS: SUCRALFATE 1 GM TABLET (FP) PO SCH ×2 (09:41→22:14)
[2017-07-23] MEDS: amLODIPine BESYLATE 2.5 MG TABLET (FP) PO SCH ×2 (09:41→22:14)
[2017-07-23] MEDS: NICOTINE 14 MG/24 HOURS TOPICAL PATCH TD SCH (09:41)
[2017-07-23] MEDS: PRAMIPEXOLE DIHYDROCHLORIDE 0.125 MG TABLET PO SCH ×2 (09:41→22:23)
[2017-07-23] MEDS: METOPROLOL TARTRATE 50 MG TABLET (FP) PO SCH ×2 (09:41→22:15)
[2017-07-23] MEDS: ESCITALOPRAM OXALATE 20 MG TABLET (FP) PO SCH ×2 (09:41→22:14)
[2017-07-23] MEDS: PANTOPRAZOLE 40 MG TABLET (FP) PO SCH (09:41)
[2017-07-23] MEDS: PROCHLORPERAZINE MALEATE 5 MG TABLET PO PRN ×3 (09:41→22:14)
[2017-07-23] MEDS ORDERED: diphenhydrAMINE HCL 25 MG CAPSULE (FP) PO PRN (11:40)
[2017-07-23] MEDS ORDERED: metroNIDAZOLE 250 MG TABLET PO SCH (14:00)
--- NOTE | 2017-07-23 15:31 | PN ---
Progress Note (short form) - Note Progress Note: Seen in follow up. No acute complaints. Ongoing abdominal discomfort. Meds reviewed. Current Medications Generic Name Dose Route Start Last Admin Trade Name Freq PRN Reason Stop Dose Admin Albuterol Sulfate 1 amp 07/19/17 23:24 07/23/17 05:20 Ventolin 0.083% Nebulizer Soln - NEB 1 amp Q6H PRN Administration SHORT OF BREATH/WHEEZING Albuterol Sulfate 2 puff 07/20/17 08:44 Ventolin Hfa Inhaler - IH Q4H PRN WHEEZING Amlodipine Besylate 2.5 mg 07/22/17 22:00 07/23/17 09:41 Norvasc - PO 2.5 mg BID ANY Administration Diphenhydramine HCl 25 mg 07/23/17 11:40 Benadryl - PO HS PRN INSOMNIA Escitalopram Oxalate 20 mg 07/20/17 22:00 07/23/17 09:41 Lexapro - PO 20 mg BID ANY Administration Fentanyl 2 patch 07/21/17 14:45 07/21/17 15:18 Duragesic 100mcg Patch - TD 07/28/17 14:35 2 patch Q72H ANY Administration Hydromorphone HCl 4 mg 07/23/17 11:04 07/23/17 12:30 Dilaudid - PO 4 mg Q6H PRN Administration PAIN LEVEL 7 - 10 Levofloxacin 500 mg in 100 mls @ 100 mls/hr 07/23/17 11:30 07/23/17 12:32 Levaquin 500 Mg Premixed Ivpb - IVPB 100 mls/hr DAILY ANY Administration Metronidazole 500 mg in 100 mls @ 100 mls/hr 07/23/17 11:30 07/23/17 11:39 Flagyl 500mg Premixed Ivpb - IVPB Not Given Q8H-IV ANY Insulin Aspart 1 vial 07/23/17 07:00 07/23/17 06:09 Novolog Vial Sliding Scale - SQ Not Given ACBK [facility] Protocol Lactulose 20 gm 07/21/17 14:33 07/21/17 14:56 Cephulac (Oral Use) PO 20 gm ONCE PRN Administration CONSTIPATION Lorazepam 1 mg 07/19/17 23:37 07/21/17 15:18 Ativan - PO 1 mg Q12H PRN Administration ANXIETY Metoprolol Tartrate 100 mg 07/20/17 10:00 07/23/17 09:41 Lopressor - PO 100 mg BID ANY Administration Miscellaneous 1 each 07/21/17 14:35 Duragesic Patch Waste MC PRN PRN PAIN Nicotine 14 mg 07/20/17 10:00 07/23/17 09:41 Nicoderm Patch - TD 14 mg DAILY ANY Administration Pantoprazole Sodium 40 mg 07/23/17 10:00 07/23/17 09:41 Protonix - PO 40 mg DAILY ANY Administration Pramipexole Dihydrochloride 0.125 mg 07/22/17 22:00 07/23/17 09:41 Mirapex - PO 0.125 mg BID ANY Administration Prochlorperazine Maleate 5 mg 07/20/17 08:52 07/23/17 13:55 Compazine - PO 5 mg Q4H PRN Administration NAUSEA AND/OR VOMITING Ranitidine HCl 150 mg 07/20/17 22:00 07/22/17 21:36 Zantac - PO 150 mg HS ANY Administration Sucralfate 1 gm 07/22/17 22:00 07/23/17 09:41 Carafate - PO 1 gm BID ANY Administration On exam: Last Vital Signs Temp Pulse Resp BP Pulse Ox 97.7 F 77 20 152/73 98 07/23/17 14:05 07/23/17 14:05 07/23/17 14:05 07/23/17 14:05 07/23/17 08:41 General: Comfortable,supine in bed, but mobile. Extremities: No pallor, no icterus. Chest: Breathing comfortably, clear to auscultation CVS: S1, S2, no gallop or murmur. Abdomen: Soft, diffusely tender, hepatosplenomegaly++ Neuro: Alert, oriented, non-focal. Skin: Psoriatic plaques. CBC, BMP 07/22/17 06:30 07/22/17 06:30 Assessment. Newly diagnosed breast cancer / newly diagnosed hepatic cirrhosis/pHTN/ splenomegaly. Etiology of latter is unclear. Presently admitted with abdominal pain. Thrombocytopenia and neutropenia - likely attributable to splenic sequestration - appears stable - no CBC today - check tomorrow. Known to [facility] - breast cancer management decision pending tumor board .
[2017-07-23] MEDS: RANITIDINE HCL 150 MG TABLET (FP) PO SCH (22:14)
[2017-07-24 06:06] LABS: SERUM IRON SATURATION 9 % (15-55); TOTAL IRON BINDING CAPACITY 387 ug/dL (250-450); UIBC 351 ug/dL (131-425)
[2017-07-24] MEDS: INSULIN SLIDING SCALE (NOVOLOG) 1 VIAL SQ SCH (06:12)
--- NOTE | 2017-07-24 06:50 | DS ---
Physical Examination Vital Signs: Vital Signs Temperature 97.7 F 07/23/17 22:00 Pulse Rate 62 07/23/17 22:00 Respiratory Rate 20 07/23/17 22:00 Blood Pressure 141/82 07/23/17 22:00 O2 Sat by Pulse Oximetry (%) 97 07/23/17 21:00 Findings/Remarks: feels well wants to go home; to be DC home after today IV ATB doses scripts and meds done; levaquin po x 3 days CDiff PFX d/w pt yogurt, bacid po daily x 1-2 weeks d/w pt also instructions d/w pt t time 45 min Constitutional: Yes: No Distress, Calm Eyes: Yes: Conjunctiva Clear HENT: Yes: Atraumatic Neck: Yes: Supple Cardiovascular: Yes: Regular Rate and Rhythm Respiratory: Yes: CTA Bilaterally Gastrointestinal: Yes: Soft. No: Distention, Tenderness Renal/: No: CVA Tenderness - Left, CVA Tenderness - Right Musculoskeletal: No: Joint Stiffness, Joint Swelling Extremities: No: Cold, Cool, Cyanosis Edema: No Integumentary: Yes: Rash (legs psoriasis chronic to f/u with dermatology outpt also noticed a small boil R buttock, will order bactroban bid topicall and to see derm in 1-2 weeks) Neurological: Yes: WNL, Alert, Oriented ...Motor Strength: WNL Psychiatric: Yes: WNL, Alert, Oriented. 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) Psoriatic arthritis (Acute) Sleep apnea (Acute) Procedures: Principal: admitted with Colitis acute Other Procedures: IV ATB per GI, pain meds per pain also seen by heme onc, neurology and vascular sx; f/u with them outpt as advised; Hospital Course: improved with IV ATB; DC home on po levaquin x 3 days; GI f/u for EGD colonoscopy in few weeks f/u as advised Condition: Stable - Instructions Diet, Activity, Other Instructions: f/u PCP and GI in 1-2 weeks f/u CBC CMP in 1-2 weeks EGD colonoscopy per GI RTER if worse or recurrent c/o take meds as prescribed take bacid and yogurt while on ATB for CDiff PFX try to taper opiates dilaudid and fentanyl also ativan as possible f/u heme onc, GI, breast surgery at [facility] as advised pulm, cardio f/u as advised stop smoking pain management, neurology and psychiatry as advised vascular surgery for legs venous insufficiency dermatology in 1-2 weeks [facility] [employer] outpt f/u Disposition: HOME - Home Medications Comprehensive Discharge Medication List: Ambulatory Orders Albuterol Sulfate Inhaler - [Ventolin Hfa Inhaler -] 2 inh PO Q4H 07/19/17 Escitalopram Oxalate [Lexapro -] 20 mg PO BID 07/19/17 Esomeprazole Magnesium 40 mg PO DAILY 07/19/17 FENTANYL 100mcg PATCH [DURAGESIC 100mcg PATCH -] 200 mcg TP Q2D 07/19/17 Furosemide [Lasix] 40 mg PO BID 07/19/17 HYDROmorphone [Dilaudid -] 4 mg PO TID PRN 07/19/17 LORazepam [Ativan] 1 mg PO BID 07/19/17 Lactulose 10 gm PO BID 07/19/17 Metformin HCl 500 mg PO BIDAC 07/19/17 Montelukast Sodium [Singulair] 10 mg PO HS 07/19/17 Ondansetron [Zofran *Odt*] 8 mg SL TID 07/19/17 Ranitidine [Zantac -] 150 mg PO DAILY 07/19/17 Metoprolol Succinate 100 mg PO BID 07/20/17
[2017-07-24 07:46] VITALS: PULSE 70
[2017-07-24] MEDS: ALBUTEROL SO4 0.083% IH SOL 2.5 MG/3 ML VIAL.NEB. NEB PRN (07:54)
[2017-07-24 07:59] LABS: ANION GAP 4 (8-16); BLOOD UREA NITROGEN 11 mg/dL (7-18); CALCIUM 8.5 mg/dL (8.5-10.1); CHLORIDE 110 mmol/L (98-107); CO2 28 mmol/L (21-32); POTASSIUM 4.2 mmol/L (3.5-5.1); SODIUM 142 mmol/L (136-145)
[2017-07-24 08:02] LABS: CREATININE 0.5 mg/dL (0.55-1.02); GLUCOSE,RANDOM 102 mg/dL (74-106)
[2017-07-24 08:28] LABS: BASO % 0.8 % (0-2.0); EOS % 1.8 % (0-4.5); HEMATOCRIT 33.1 % (32.4-45.2); LYMPH % 36.2 % (8-40); MCH 26.9 pg (25.7-33.7); MCHC 33.4 g/dl (32.0-36.0); MEAN CELL VOLUME 80.7 fl (80-96); MEAN PLT VOLUME 9.3 fl (7.5-11.1); MONO % 9.4 % (3.8-10.2); NEUT % 51.8 % (42.8-82.8); PLATELET COUNT 85 K/MM3 (134-434); RDW 16.3 % (11.6-15.6); WHITE BLOOD COUNT 2.9 K/mm3 (4.0-10.0)
[2017-07-24] MEDS: NICOTINE 14 MG/24 HOURS TOPICAL PATCH TD SCH (09:41)
[2017-07-24] MEDS: PANTOPRAZOLE 40 MG TABLET (FP) PO SCH (09:41)
[2017-07-24] MEDS: METOPROLOL TARTRATE 50 MG TABLET (FP) PO SCH (09:41)
[2017-07-24] MEDS: amLODIPine BESYLATE 2.5 MG TABLET (FP) PO SCH (09:41)
[2017-07-24] MEDS: PROCHLORPERAZINE MALEATE 5 MG TABLET PO PRN (09:43)
[2017-07-24] MEDS: PRAMIPEXOLE DIHYDROCHLORIDE 0.125 MG TABLET PO SCH (09:43)
[2017-07-24] MEDS: SUCRALFATE 1 GM TABLET (FP) PO SCH (09:44)
[2017-07-24] MEDS: ESCITALOPRAM OXALATE 20 MG TABLET (FP) PO SCH (09:53)
[2017-07-24 11:50] VITALS: BP 146/75; TEMP 98.4
== END 2017-07-24 10:46 | disposition home or self-care (01) | DRG 392 ==
LOC: FER 12:53 → J8W 21:20
PROVIDERS: ADMIT Internal Medicine; ATTEND Internal Medicine
DX: K52.89 Other specified noninfective gastroenteritis and colitis (principal); K76.6 Portal hypertension; I10 Essential (primary) hypertension; E11.9 Type 2 diabetes mellitus without complications; F17.210 Nicotine dependence, cigarettes, uncomplicated; F41.8 Other specified anxiety disorders; K74.60 Unspecified cirrhosis of liver; L40.50 Arthropathic psoriasis, unspecified; C50.919 Malignant neoplasm of unspecified site of unspecified female breast; K80.20 Calculus of gallbladder without cholecystitis without obstruction; R16.2 Hepatomegaly with splenomegaly, not elsewhere classified
CPT/HCPCS: 36415; 74177-TC; 80048; 80053; 81003; 81015; 82728; 82962; 83540; 83550; 83690; 83735; 85025; 85027; 85384; 85610; 85651; 85730; 86140; 87086; 87324; 87449; 94640; 99283-25; J7030

== ENCOUNTER 2017-08-15 19:17 | Emergency (ER) | payer OTHER ==
[2017-08-15 19:28] VITALS: BP 151/83; PULSE 74; TEMP 97.6; BMI 27.4
--- NOTE | 2017-08-15 19:29 | PDOC ---
Rapid Medical Evaluation Time Seen by Provider: 08/15/17 19:24 Medical Evaluation: Allergies Allergy/AdvReac Type Severity Reaction Status Date / Time nickel Allergy Intermediate Rash Verified 08/15/17 19:25 timolol Allergy Swelling Verified 08/15/17 19:25 titanium Allergy Verified 08/15/17 19:25 08/15/17 19:26 I have performed a brief in-person evaluation of this patient. The patient presents with a chief complaint of abd pain, h/o HTN, DM, cirrhosis , breast cancer s/p L lumpectomy, not yet started on chemo/xrt, anxiety, depression, s/p recent admission for possible colitis on CT Pertinent physical exam findings:Stable w/ no sig ttp on exam I have ordered the following:labs The patient will proceed to the ED for further evaluation. Discharge Disposition - Diagnosis Abdominal pain Qualifiers: Abdominal location: generalized Qualified Code(s): R10.84 - Generalized abdominal pain - Referrals - Patient Instructions - Post Discharge Activity
--- NOTE | 2017-08-15 20:32 | PDOC ---
History of Present Illness - General Chief Complaint: Pain Stated Complaint: PAIN Time Seen by Provider: 08/15/17 19:24 History Source: Patient Exam Limitations: No Limitations - History of Present Illness Initial Comments: CHIEF COMPLAINT: 47 y/o afebrile female with PMH HTN, DM, cirrhosis, breast CA s/p L lumpectomy (not started chemo/xrt), anxiety, depression and recent admission for colitis c/o abdominal pain. HISTORY OF PRESENT ILLNESS: The patient states for the past few days she's had epigastric pain and nausea. She saw Dr. Groves today who suggested increasing her zantac to twice a day and restarting carafate. She take Nexium every morning as well. She was going to follow his advice but had such terrible pain this afternoon that she came in to be evaluated. She denies f/c, vomiting. The patient states she is passing gas and stool. She had a left lumpectomy on . Vital signs on arrival are within normal limits. REVIEW OF SYSTEMS: GENERAL/CONSTITUTIONAL: No fever/chills. No weakness. No weight change. HEAD, EYES, EARS, NOSE AND THROAT: No change in vision. No ear pain or discharge. No sore throat. CARDIOVASCULAR: No chest pain or shortness of breath. RESPIRATORY: No cough, wheezing, or hemoptysis. GASTROINTESTINAL: +epigastric pain and nausea. No vomiting. +loose stool but patient taking lactulose. GENITOURINARY: No dysuria, frequency, or change in urination. MUSCULOSKELETAL: No joint or muscle swelling or pain. No neck or back pain. SKIN: No rash or easy bruising. NEUROLOGIC: No headache, vertigo, loss of consciousness, or loss of sensation. PHYSICAL EXAM: GENERAL: The patient is awake, alert, and fully oriented, in no acute distress. She is well appearing and ambulatory. HEAD: Normal with no signs of trauma. ENT: Pupils equal, round and reactive to light, extraocular movements intact, sclera anicteric, conjunctiva clear. LUNGS: Clear to auscultation bilaterally. Normal excursion. No respiratory distress or use of accessory muscles. CV: RRR, S1/S2, no MRG. Cap refill < 2 sec. CHEST WALL/BREASTS: Swelling to left breast with ecchymotic area to underside of left breast that is very TTP. No erythema, warmth or streaking. ABDOMEN: Soft, some TTP of epigastric region. Hepatomegaly. Distended upper abdomen with normal BS. Negative montoya's sign. No guarding. EXTREMITIES: Normal range of motion, no edema. NEUROLOGICAL: Normal speech, normal gait. CN II-XII grossly intact. PSYCH: Normal mood, normal affect. SKIN: Warm, dry, normal turgor, no rashes or lesions noted. Past History - Past Medical History Allergies/Adverse Reactions: Allergies Allergy/AdvReac Type Severity Reaction Status Date / Time nickel Allergy Intermediate Rash Verified 08/15/17 19:25 timolol Allergy Swelling Verified 08/15/17 19:25 titanium Allergy Verified 08/15/17 19:25 Home Medications: Ambulatory Orders Albuterol Sulfate [Proair Hfa] 8.5 gm IH PRN 08/04/17 Amlodipine Besylate [Norvasc -] 2.5 mg PO DAILY 08/04/17 Cephalexin Monohydrate [Keflex -] 500 mg PO BID 08/04/17 Escitalopram Oxalate [Lexapro -] 20 mg PO BID 08/04/17 Esomeprazole Magnesium 40 mg PO DAILY 08/04/17 Furosemide [Lasix] 40 mg PO BID 08/04/17 Hydromorphone HCl [Dilaudid 4 mg/ml Syringe] 4 mg IJ PRN 08/04/17 Lactobacillus Acidophilus [Acidophilus] 2 tab PO 08/04/17 Lactulose 10 gm PO BID 08/04/17 Lorazepam [Ativan] 1 mg PO BID 08/04/17 Metformin HCl 500 mg PO BID 08/04/17 Metoprolol Tartrate 100 mg PO BID 08/04/17 Montelukast Sodium [Singulair] 10 mg PO HS 08/04/17 Ondansetron HCl [Zofran] 8 mg PO PRN PRN 08/04/17 Ranitidine [Zantac -] 150 mg PO HS 08/04/17 Sucralfate Oral Suspension [Carafate Oral Suspension -] 1 gm PO TID 08/04/17 Asthma: Yes Cancer: Yes (Breast cancer left) Cardiac Disorders: Yes (Peripheral Artery Disease) COPD: No DVT: No Diabetes: Yes HTN: Yes Hypercholesterolemia: Yes Liver Disease: Yes (fatty liver, cirrhosis) Psychiatric Problems: Yes (depression, anxiety) - Surgical History Orthopedic Surgery: Yes (3 neck sx's (2005, 2006, 2009)) - Immunization History Immunization Up to Date: No - Suicide/Smoking/Psychosocial Hx Smoking History: Current some day smoker Have you smoked in the past 12 months: Yes Number of Cigarettes Smoked Daily: 10 Information on smoking cessation initiated: No 'Breaking Loose' booklet given: 07/16/17 Hx Alcohol Use: No Drug/Substance Use Hx: No Substance Use Type: None Hx Substance Use Treatment: No *Physical Exam - Vital Signs Last Vital Signs Temp Pulse Resp BP Pulse Ox 97.6 F 74 18 151/83 99 08/15/17 19:25 08/15/17 19:25 08/15/17 19:25 08/15/17 19:25 08/15/17 19:25 ED Treatment Course - LABORATORY CBC & Chemistry Diagram: 08/15/17 20:36 08/15/17 20:36 Medical Decision Making - Medical Decision Making A/P: 47 y/o afebrile female with epigastric pain and nausea x 3 days. Plan is as follows: 1. labs 2. IV protonix 3. IV zofran 4. PO carafate Gave patient all of her results. She is mostly worried about the pain and states she still has some pain. She is going to change her fentanyl patch this evening but is concerned for constipation. Has dilaudid at home but can't take the pills because of her abdominal pain and nausea. Will give 1mg of IV dilaudid and discharge to home. Suggested she continue with zantac BID, carafate TID, lactulose and f/u with Dr. Groves tomorrow. Patient was instructed to return to the ER with any worsening or concerning symptoms. The patient verbalizes understanding of all instructions, has no further questions and is awaiting discharge. *DC/Admit/Observation/Transfer Diagnosis at time of Disposition: Epigastric pain Abdominal pain Qualifiers: Abdominal location: generalized Qualified Code(s): R10.84 - Generalized abdominal pain - Discharge Dispostion Disposition: HOME Condition at time of disposition: Stable - Referrals Referrals: Josephine Groves [Primary Care Provider] - Call tomorrow - Patient Instructions Printed Discharge Instructions: DI for Epigastric Pain Additional Instructions: Discharge Instructions: -Your labs were normal -Continue taking lactulose as prescribed -Continue taking zantac and carafate as prescribed -Call Dr. Gorves tomorrow -Return to the ER with any worsening or concerning symptoms - Post Discharge Activity
[2017-08-15 20:43] LABS: BASO % 0.4 % (0-2.0); EOS % 0.7 % (0-4.5); HEMATOCRIT 35.4 % (32.4-45.2); HEMOGLOBIN 11.8 GM/dL (10.7-15.3); LYMPH % 28.3 % (8-40); MCH 26.1 pg (25.7-33.7); MCHC 33.4 g/dl (32.0-36.0); MEAN CELL VOLUME 78.3 fl (80-96); MEAN PLT VOLUME 8.9 fl (7.5-11.1); MONO % 9.1 % (3.8-10.2); NEUT % 61.5 % (42.8-82.8); PLATELET COUNT 121 K/MM3 (134-434); RBC 4.53 M/mm3 (3.60-5.2); RDW 17.1 % (11.6-15.6); WHITE BLOOD COUNT 5.5 K/mm3 (4.0-10.0)
--- NOTE | 2017-08-15 20:55 | PDOC ---
*Physical Exam - Vital Signs Last Vital Signs Temp Pulse Resp BP Pulse Ox 97.6 F 74 18 151/83 99 08/15/17 19:25 08/15/17 19:25 08/15/17 19:25 08/15/17 19:25 08/15/17 19:25 ED Treatment Course - LABORATORY CBC & Chemistry Diagram: 08/15/17 20:36 08/15/17 20:36 - ADDITIONAL ORDERS Additional order review: 08/15/17 20:36 RBC 4.53 MCV 78.3 L MCHC 33.4 RDW 17.1 H MPV 8.9 Neutrophils % 61.5 Lymphocytes % 28.3 D Monocytes % 9.1 Eosinophils % 0.7 Basophils % 0.4 Medical Decision Making - Medical Decision Making 08/15/17 20:54 agree with care from BERTA Carlson *DC/Admit/Observation/Transfer Diagnosis at time of Disposition: Abdominal pain Qualifiers: Abdominal location: generalized Qualified Code(s): R10.84 - Generalized abdominal pain - Referrals Referrals: Josephine Groves [Primary Care Provider] - - Patient Instructions - Post Discharge Activity
[2017-08-15] MEDS ORDERED: PANTOPRAZOLE SODIUM 40 MG VIAL IVPUSH ONE (21:19)
[2017-08-15] MEDS ORDERED: SUCRALFATE 1 GM TABLET (FP) PO ONE (21:19)
[2017-08-15] MEDS ORDERED: ONDANSETRON 4 MG/2 ML VIAL IVPUSH ONE (21:19)
[2017-08-15] MEDS ORDERED: SUCRALFATE 1 GM TABLET (FP) ONE (21:22)
[2017-08-15] MEDS ORDERED: ONDANSETRON 4 MG/2 ML VIAL ONE (21:23)
[2017-08-15] MEDS ORDERED: PANTOPRAZOLE SODIUM 40 MG VIAL ONE (21:23)
[2017-08-15 21:24] LABS: URINE APPEARANCE CLEAR; URINE BILIRUBIN NEGATIVE (<2.0 mg/dL); URINE BLOOD NEGATIVE (NEGATIVE); URINE COLOR YELLOW; URINE GLUCOSE (UA) NEGATIVE (NEGATIVE); URINE KETONE TRACE (NEGATIVE); URINE LEUK ESTERASE NEGATIVE (NEGATIVE); URINE NITRITE NEGATIVE (NEGATIVE); URINE PROTEIN NEGATIVE (NEGATIVE); URINE UROBILINOGEN NEGATIVE mg/dL (0.2-1.0)
[2017-08-15 21:40] LABS: ANION GAP 4 (8-16); BLOOD UREA NITROGEN 7 mg/dL (7-18); CALCIUM 9.3 mg/dL (8.5-10.1); CHLORIDE 104 mmol/L (98-107); CO2 30 mmol/L (21-32); CREATININE 0.5 mg/dL (0.55-1.02); GLUCOSE,RANDOM 82 mg/dL (74-106); LIPASE 117 U/L (73-393); POTASSIUM 4.1 mmol/L (3.5-5.1); SGOT/AST 16 U/L (15-37); SGPT/ALT 19 U/L (12-78); SODIUM 138 mmol/L (136-145)
[2017-08-15 21:42] LABS: ALK PHOS 136 U/L (45-117); BILIRUBIN,TOTAL 0.9 mg/dL (0.2-1.0); TOT PROT 7.2 g/dl (6.4-8.2)
[2017-08-15] MEDS ORDERED: HYDROmorphone HCL CARPU-JECT 1 MG/1 ML DISP.SYRIN IVPUSH ONE (22:56)
[2017-08-15] MEDS ORDERED: morphine SULFATE 4 MG/ML VIAL ONE (23:30)
== END 2017-08-15 23:47 | disposition home or self-care (01) ==
LOC: JER 19:17
PROC: 3E033GC Introduction of Other Therapeutic Substance into Peripheral Vein, Percutaneous Approach (ICD-10-PCS; principal; 2017-08-15)
DX: R10.13 Epigastric pain (principal); R10.84 Generalized abdominal pain; I10 Essential (primary) hypertension; E11.9 Type 2 diabetes mellitus without complications; Z85.3 Personal history of malignant neoplasm of breast; K74.60 Unspecified cirrhosis of liver
CPT/HCPCS: 36415; 80053; 81003; 83690; 84703; 85025; 96374; 96375; 99282-25

== ENCOUNTER 2017-08-21 16:42 | Emergency (ER) | payer OTHER ==
[2017-08-21 17:21] VITALS: BP 156/85; PULSE 100; TEMP 98.3; BMI 27.4
--- NOTE | 2017-08-21 17:24 | PDOC ---
Rapid Medical Evaluation Time Seen by Provider: 08/21/17 17:20 Medical Evaluation: Allergies Allergy/AdvReac Type Severity Reaction Status Date / Time nickel Allergy Intermediate Rash Verified 08/21/17 17:17 timolol Allergy Swelling Verified 08/21/17 17:17 titanium Allergy Verified 08/21/17 17:17 I have performed a brief in-person evaluation of this patient. The patient presents with a chief complaint of: abdominal pain on and off for the past few weeks; patient was seen here last week by myself for this. She has PO dilaudid which she states she cannot take because "it hurts". her sister is insistent on a Cat Scan and the patient admits only IV morphine is the only thing that helps. patient had a CT of the abd/pelvis on 07/19/17 and on 06/19/17. Pertinent physical exam findings: epigastric TTP I have ordered the following: basic labs The patient will proceed to the ED for further evaluation.
--- NOTE | 2017-08-21 17:39 | PDOC ---
History of Present Illness - General Chief Complaint: Pain, Acute Stated Complaint: ABD PAIN Time Seen by Provider: 08/21/17 17:20 - History of Present Illness Initial Comments: 08/21/17 17:38 Ms. Jacobo is a 47 yo female w/ pmh of HTN, DM, cirrhosis, breast CA s/p L lumpectomy two weeks ago, anxiety, depression recent admission for colitis c/o abdominal pain, and recent presentations for abdominal pain who presents complaining of 2 weeks of generalized abdominal pain. She reports she has been attempting to eat however has had no appetite. She is also very worried about her appointment tomorrow with her breast surgeon. She reports she is also very worried about getting to all of her appointments. The patient denies chest pain, shortness of breath, headache and dizziness. Denies fever, chills, nausea, vomit, diarrhea and constipation. Denies dysuria, frequency, urgency and hematuria. Allergies: Nickel, Timolol, Titanium Past History - Past Medical History Allergies/Adverse Reactions: Allergies Allergy/AdvReac Type Severity Reaction Status Date / Time nickel Allergy Intermediate Rash Verified 08/21/17 17:17 timolol Allergy Swelling Verified 08/21/17 17:17 titanium Allergy Verified 08/21/17 17:17 Home Medications: Ambulatory Orders Albuterol Sulfate [Proair Hfa] 8.5 gm IH PRN 08/04/17 Amlodipine Besylate [Norvasc -] 2.5 mg PO DAILY 08/04/17 Cephalexin Monohydrate [Keflex -] 500 mg PO BID 08/04/17 Escitalopram Oxalate [Lexapro -] 20 mg PO BID 08/04/17 Esomeprazole Magnesium 40 mg PO DAILY 08/04/17 Furosemide [Lasix] 40 mg PO BID 08/04/17 Hydromorphone HCl [Dilaudid 4 mg/ml Syringe] 4 mg IJ PRN 08/04/17 Lactobacillus Acidophilus [Acidophilus] 2 tab PO 08/04/17 Lactulose 10 gm PO BID 08/04/17 Lorazepam [Ativan] 1 mg PO BID 08/04/17 Metformin HCl 500 mg PO BID 08/04/17 Metoprolol Tartrate 100 mg PO BID 08/04/17 Montelukast Sodium [Singulair] 10 mg PO HS 08/04/17 Ondansetron HCl [Zofran] 8 mg PO PRN PRN 08/04/17 Ranitidine [Zantac -] 150 mg PO HS 08/04/17 Sucralfate Oral Suspension [Carafate Oral Suspension -] 1 gm PO TID 08/04/17 Asthma: Yes Cancer: Yes (Breast cancer left) Cardiac Disorders: Yes (Peripheral Artery Disease) COPD: No DVT: No Diabetes: Yes HTN: Yes Hypercholesterolemia: Yes Liver Disease: Yes (fatty liver, cirrhosis) Psychiatric Problems: Yes (depression, anxiety) - Surgical History Orthopedic Surgery: Yes (3 neck sx's (2005, 2006, 2009)) - Immunization History Immunization Up to Date: No - Suicide/Smoking/Psychosocial Hx Smoking History: Current every day smoker Have you smoked in the past 12 months: Yes Number of Cigarettes Smoked Daily: 10 Information on smoking cessation initiated: No 'Breaking Loose' booklet given: 07/16/17 Hx Alcohol Use: No Drug/Substance Use Hx: No Substance Use Type: None Hx Substance Use Treatment: No Review of Systems - Review of Systems Comments:: 08/21/17 17:38 GENERAL/CONSTITUTIONAL: No fever or chills. No weakness. HEAD, EYES, EARS, NOSE AND THROAT: No change in vision. No ear pain or discharge. No sore throat. CARDIOVASCULAR: No chest pain or shortness of breath RESPIRATORY: No cough, wheezing, or hemoptysis. GASTROINTESTINAL: No nausea, vomiting, diarrhea or constipation. GENITOURINARY: No dysuria, frequency, or change in urination. MUSCULOSKELETAL: +Left, right, and middle abdominal pain constant for 2 weeks. No joint or muscle swelling or pain. No neck or back pain. SKIN: Longstanding skin rash unchanged for several months. NEUROLOGIC: No headache, vertigo, loss of consciousness, or change in strength/ sensation. ENDOCRINE: No increased thirst. No abnormal weight change HEMATOLOGIC/LYMPHATIC: No anemia, easy bleeding, or history of blood clots. ALLERGIC/IMMUNOLOGIC: No hives or skin allergy. *Physical Exam - Vital Signs Last Vital Signs Temp Pulse Resp BP Pulse Ox 98.3 F 100 H 19 156/85 98 08/21/17 17:17 08/21/17 17:17 08/21/17 17:17 08/21/17 17:17 08/21/17 17:17 - Physical Exam Comments: 08/21/17 17:39 GENERAL: Awake, alert, and fully oriented, in no acute distress HEAD: No signs of trauma, normocephalic, atraumatic EYES: PERRLA, EOMI, sclera anicteric, conjunctiva clear ENT: Auricles normal inspection, hearing grossly normal, nares patent, oropharynx clear without exudates. Moist mucosa NECK: Normal ROM, supple, no lymphadenopathy, JVD, or masses LUNGS: No distress, speaks full sentences, clear to auscultation bilaterally HEART: Regular rate and rhythm, normal S1 and S2, no murmurs, rubs or gallops, peripheral pulses normal and equal bilaterally. ABDOMEN: +Patient acutely tender to entire upper abdomen. Soft, normoactive bowel sounds. No guarding, no rebound. No masses EXTREMITIES: +Normal inspection, Normal range of motion, no edema. No clubbing or cyanosis. NEUROLOGICAL: Cranial nerves II through XII grossly intact. Normal speech, normal gait, no focal sensorimotor deficits SKIN: +Multiple lesions/rash to legs unchanged from previous visits. Warm, Dry ED Treatment Course - LABORATORY CBC & Chemistry Diagram: 08/21/17 17:35 08/21/17 17:35 Medical Decision Making - Medical Decision Making 08/21/17 19:08 Ms. Jacobo is a 47 yo female w/ pmh as described who presents for evaluation of acute abdominal pain. CT abdomen/pelvis ordered for evaluation. Patient signed out to Dr. Nicholas for further care. *DC/Admit/Observation/Transfer Diagnosis at time of Disposition: Abdominal pain Qualifiers: Abdominal location: unspecified location Qualified Code(s): R10.9 - Unspecified abdominal pain - Referrals - Patient Instructions - Post Discharge Activity
--- NOTE | 2017-08-21 17:42 | PDOC ---
Attending Attestation - HPI HPI: 08/21/17 18:50 The patient is a 47 year old female with a significant PMH of HTN, diabetes, cirrhosis of liver, breast CA (s/p lumpectomy), anxiety, and depression who presents to the emergency department with intermittent generalized abdominal pain beginning approximately 2 weeks ago. Allergies: Nickel, Timolol, and Titanium. PCP: Dr. Josephine Groves <Stone Mcdonald - Last Filed: 08/21/17 18:50> - Resident Resident Name: Richard Bhatti - ED Attending Attestation I have performed the following: I have examined & evaluated the patient, The case was reviewed & discussed with the resident, I agree w/resident's findings & plan, Exceptions are as noted - Physicial Exam PE: GENERAL: Awake, alert, and fully oriented, in no acute distress HEAD: No signs of trauma EYES: PERRLA, EOMI, sclera anicteric, conjunctiva clear ENT: Auricles normal inspection, hearing grossly normal, nares patent, oropharynx clear without exudates. Moist mucosa NECK: Normal ROM, supple, no lymphadenopathy, JVD, or masses LUNGS: Breath sounds equal, clear to auscultation bilaterally. No wheezes, and no crackles HEART: Regular rate and rhythm, normal S1 and S2, no murmurs, rubs or gallops ABDOMEN: Soft, diffusely tender, worst in RUQ. +Diffuse guarding. Normoactive bowel sounds. No rebound. +Hepatomegaly. EXTREMITIES: Normal range of motion, no edema. No clubbing or cyanosis. No cords, erythema, or tenderness NEUROLOGICAL: Cranial nerves II through XII grossly intact. Normal speech, normal gait SKIN: Warm, Dry, normal turgor, no rashes or lesions noted. - Medical Decision Making Pt presents with abd pain. She has had similar complaint in the past, was previously diagnosed with colitis that improved with abx. Will obtain repeat CT to evaluate, as she is diffusely tender with guarding. Regardless of findings, will require GI f/u, as she is chronically having abdominal complaints, intermittently worsening. <Amira Moulton - Last Filed: 08/24/17 07:51>
[2017-08-21 17:54] LABS: BASO % 0.5 % (0-2.0); EOS % 0.2 % (0-4.5); HEMATOCRIT 39.4 % (32.4-45.2); HEMOGLOBIN 13.4 GM/dL (10.7-15.3); LYMPH % 15.6 % (8-40); MCH 26.8 pg (25.7-33.7); MCHC 34.1 g/dl (32.0-36.0); MEAN CELL VOLUME 78.4 fl (80-96); MEAN PLT VOLUME 9.6 fl (7.5-11.1); MONO % 5.9 % (3.8-10.2); NEUT % 77.8 % (42.8-82.8); PLATELET COUNT 111 K/MM3 (134-434); RBC 5.02 M/mm3 (3.60-5.2); RDW 16.9 % (11.6-15.6); WHITE BLOOD COUNT 6.5 K/mm3 (4.0-10.0)
[2017-08-21 18:28] LABS: ALBUMIN 4.2 g/dl (3.4-5.0); ANION GAP 7 (8-16); BLOOD UREA NITROGEN 10 mg/dL (7-18); CALCIUM 9.5 mg/dL (8.5-10.1); CHLORIDE 103 mmol/L (98-107); CO2 27 mmol/L (21-32); CREATININE 0.6 mg/dL (0.55-1.02); GLUCOSE,RANDOM 94 mg/dL (74-106); LIPASE 90 U/L (73-393); POTASSIUM 4.7 mmol/L (3.5-5.1); SGOT/AST 18 U/L (15-37); SGPT/ALT 20 U/L (12-78); SODIUM 137 mmol/L (136-145)
[2017-08-21 18:31] LABS: ALK PHOS 141 U/L (45-117); BILIRUBIN,TOTAL 1.3 mg/dL (0.2-1.0); TOT PROT 7.8 g/dl (6.4-8.2)
--- NOTE | 2017-08-21 20:14 | PDOC ---
*Physical Exam - Vital Signs Last Vital Signs Temp Pulse Resp BP Pulse Ox 98.3 F 100 H 19 156/85 98 08/21/17 17:17 08/21/17 17:17 08/21/17 17:17 08/21/17 17:17 08/21/17 17:17 - Physical Exam Comments: 08/21/17 20:14 GENERAL: Awake, alert, and fully oriented, in no acute distress HEAD: No signs of trauma, normocephalic, atraumatic EYES: PERRLA, EOMI, sclera anicteric, conjunctiva clear ENT: Hearing grossly normal, nares patent, oropharynx clear without exudates. Moist mucosa NECK: Normal ROM, supple, no lymphadenopathy, JVD, or masses LUNGS: No distress, speaks full sentences, clear to auscultation bilaterally HEART: Regular rate and rhythm, normal S1 and S2, no murmurs, rubs or gallops, peripheral pulses normal and equal bilaterally. ABDOMEN: Soft, diffuse upper abdominal ttp. Normoactive bowel sounds. No guarding, no rebound. No masses EXTREMITIES : Normal inspection, Normal range of motion, no edema. No clubbing or cyanosis. SKIN: Warm, Dry, normal turgor, no rashes or lesions noted ED Treatment Course - LABORATORY CBC & Chemistry Diagram: 08/21/17 17:35 08/21/17 17:35 - ADDITIONAL ORDERS Additional order review: Laboratory Results 08/21/17 17:35 Sodium 137 Potassium 4.7 Chloride 103 Carbon Dioxide 27 Anion Gap 7 L BUN 10 Creatinine 0.6 Creat Clearance w eGFR > 60 Random Glucose 94 Calcium 9.5 Total Bilirubin 1.3 H D AST 18 ALT 20 Alkaline Phosphatase 141 H Total Protein 7.8 Albumin 4.2 Lipase 90 08/21/17 17:35 RBC 5.02 MCV 78.4 L MCHC 34.1 RDW 16.9 H MPV 9.6 Neutrophils % 77.8 D Lymphocytes % 15.6 D Monocytes % 5.9 Eosinophils % 0.2 Basophils % 0.5 Medical Decision Making - Medical Decision Making 08/21/17 20:13 47 yo F w/ pmh of HTN, DM, cirrhosis, breast CA s/p L lumpectomy two weeks ago, anxiety, depression recent admission for colitis c/o abdominal pain, and multiple ED visits for abdominal pain who presents complaining of 2 weeks of generalized abdominal pain and decreased appetite. Recieved handoff from DR. Bhatti. Patient is stable and ED course notable for CBC, CMP. Labs are pending. 08/21/17 21:59 ED Course: CT AP: Layering of the gallbladder sludge with suggestion of mild wall thickening again seen. 1.4 cm right renal lesion of indeterminate consistency, again seen for which correlation with renal ultrasound is needed. There is no evidence of small bowel obstruction. A few diverticula at the junction of the distal descending and sigmoid colon with mild wall thickening and without gross evidence of acute diverticulitis. There is again nondistention of the mid to distal and distal sigmoid colon cannot rule out wall thickening, anterolaterally versus infectious. Correlate clinically to determine further evaluation. Minimal free fluid in the cul-de-sac, likely physiologic. 08/21/17 22:00 CBC, CMP: Unremarkable Patient stable for d/c with return precautions. *DC/Admit/Observation/Transfer Diagnosis at time of Disposition: Abdominal pain Qualifiers: Abdominal location: unspecified location Qualified Code(s): R10.9 - Unspecified abdominal pain - Discharge Dispostion Disposition: HOME Condition at time of disposition: Stable Admit: No - Referrals Referrals: Suleman Saucedo MD [Staff Physician] - Bernardo Valentine DO [Staff Physician] - - Patient Instructions Printed Discharge Instructions: DI for Abdominal Pain-Adult Additional Instructions: Please return to the emergency department with any new or worsening symptoms or concerns. Please follow up gastroenterology within the next 24-72 hours. - Post Discharge Activity - Attestations Physician Attestion: 08/21/17 21:58 I attest to the information provided in this note.
== END 2017-08-21 22:00 | disposition home or self-care (01) ==
LOC: JER 16:42
DX: R10.10 Upper abdominal pain, unspecified (principal); I10 Essential (primary) hypertension; E78.00 Pure hypercholesterolemia, unspecified; E11.9 Type 2 diabetes mellitus without complications; Z79.84 Long term (current) use of oral hypoglycemic drugs; F41.9 Anxiety disorder, unspecified; F32.9 Major depressive disorder, single episode, unspecified; Z85.3 Personal history of malignant neoplasm of breast; K76.0 Fatty (change of) liver, not elsewhere classified; K74.60 Unspecified cirrhosis of liver; F17.210 Nicotine dependence, cigarettes, uncomplicated
CPT/HCPCS: 36415; 74177-TC; 80053; 83690; 85025; 99283-25

== ENCOUNTER 2017-08-27 10:10 | Inpatient (IN) | payer OTHER ==
--- NOTE | 2017-08-27 10:51 | PDOC ---
History of Present Illness - General Chief Complaint: Pain, Acute Stated Complaint: URINARY PROBLEM Time Seen by Provider: 08/27/17 10:50 History Source: Patient Exam Limitations: No Limitations - History of Present Illness Initial Comments: 08/27/17 11:30 Patient is a 39-year-old female past medical history of breast cancer status post L lumpectomy, liver cirrhosis, hypertension, diabetes, anxiety and depression presents to the emergency department today with epigastric pain. Patient has been having similar pain for approximately 3 weeks. She states that today the pain is a 8 out of 10. She's been unable to keep any food or water down. Admits to vomiting and constipation. Upon her last visit on 08/21/2017, patient had a CAT scan done which showed layering of gallbladder sludge with suggestion of mild wall thickening. Denies fevers, chills, shortness of breath, difficulty breathing, chest pain, palpitations, diarrhea. Patient also states that she has had urinary frequency and urgency and is concerned she also has a urinary tract infection at this time. PCP: Dr. Josephine Groves Past History - Travel Traveled outside of the country in the last 30 days: No Close contact w/someone who was outside of country & ill: No - Past Medical History Allergies/Adverse Reactions: Allergies Allergy/AdvReac Type Severity Reaction Status Date / Time nickel Allergy Intermediate Rash Verified 08/27/17 10:26 timolol Allergy Swelling Verified 08/27/17 10:26 titanium Allergy Verified 08/27/17 10:26 Home Medications: Ambulatory Orders Albuterol Sulfate [Proair Hfa] 8.5 gm IH PRN 08/04/17 Amlodipine Besylate [Norvasc -] 2.5 mg PO DAILY 08/04/17 Cephalexin Monohydrate [Keflex -] 500 mg PO BID 08/04/17 Escitalopram Oxalate [Lexapro -] 20 mg PO BID 08/04/17 Esomeprazole Magnesium 40 mg PO DAILY 08/04/17 Furosemide [Lasix] 40 mg PO BID 08/04/17 Hydromorphone HCl [Dilaudid 4 mg/ml Syringe] 4 mg IJ PRN 08/04/17 Lactobacillus Acidophilus [Acidophilus] 2 tab PO DAILY 08/04/17 Lactulose 10 gm PO BID 08/04/17 Lorazepam [Ativan] 1 mg PO BID 08/04/17 Metformin HCl 500 mg PO BID 08/04/17 Metoprolol Tartrate 100 mg PO BID 08/04/17 Montelukast Sodium [Singulair] 10 mg PO HS 08/04/17 Ondansetron HCl [Zofran] 8 mg PO PRN PRN 08/04/17 Ranitidine [Zantac -] 150 mg PO HS 08/04/17 Sucralfate Oral Suspension [Carafate Oral Suspension -] 1 gm PO TID 08/04/17 Asthma: Yes Cancer: Yes (Breast cancer left) Cardiac Disorders: Yes (Peripheral Artery Disease) COPD: No DVT: No Diabetes: Yes HTN: Yes Hypercholesterolemia: Yes Liver Disease: Yes (fatty liver, cirrhosis) Psychiatric Problems: Yes (depression, anxiety) - Surgical History Orthopedic Surgery: Yes (3 neck sx's (2005, 2006, 2009)) - Immunization History Immunization Up to Date: No - Suicide/Smoking/Psychosocial Hx Smoking History: Current every day smoker Have you smoked in the past 12 months: Yes Number of Cigarettes Smoked Daily: 20 Information on smoking cessation initiated: No 'Breaking Loose' booklet given: 07/16/17 Hx Alcohol Use: No Drug/Substance Use Hx: No Substance Use Type: None Hx Substance Use Treatment: No Review of Systems - Review of Systems Able to Perform ROS?: Yes Comments:: 08/27/17 13:31 CONSTITUTIONAL: Absent: fever, chills, diaphoresis, generalized weakness, malaise, loss of appetite HEENT: Absent: rhinorrhea, nasal congestion, throat pain, throat swelling, difficulty swallowing, mouth swelling, ear pain, eye pain, visual Changes CARDIOVASCULAR: Absent: chest pain, loss of consciousness, palpitations, irregular heart rate, peripheral edema RESPIRATORY: Absent: cough, shortness of breath, dyspnea with exertion, orthopnea, wheezing, stridor, hemoptysis GASTROINTESTINAL: Present: abdominal pain, nausea, vomiting, constipation Absent: abdominal distension, diarrhea, constipation, melena, hematochezia GENITOURINARY: Present: dysuria, frequency, urgency Absent: hesitancy, hematuria, flank pain, genital pain MUSCULOSKELETAL: Absent: myalgia, arthralgia, joint swelling SKIN: Absent: rash, itching, pallor HEMATOLOGIC/IMMUNOLOGIC: Absent: easy bleeding, easy bruising, lymphadenopathy, frequent infections ENDOCRINE: Absent: unexplained weight gain, unexplained weight loss, heat intolerance, cold intolerance NEUROLOGIC: Absent: headache, focal weakness or paresthesias, dizziness, unsteady gait, seizure, mental status changes, bladder or bowel incontinence PSYCHIATRIC: Absent: anxiety, depression, suicidal or homicidal ideation, hallucinations. Is the patient limited Kiswahili proficient: No *Physical Exam - Vital Signs Last Vital Signs Temp Pulse Resp BP Pulse Ox 98.6 F 95 H 19 157/79 99 08/27/17 10:26 08/27/17 10:26 08/27/17 10:08/27/17 10:08/27/17 10:26 - Physical Exam Comments: 08/27/17 13:42 GENERAL: Well developed, well nourished. Awake and alert. No acute distress. HEENT: Normocephalic, atraumatic. PERRLA, EOMI. No conjunctival pallor. Sclera are non- icteric. Moist mucous membranes. Oropharynx is clear. NECK: Supple. Full ROM. No JVD. Carotid pulses 2+ and symmetric, without bruits. No thyromegaly. No lymphadenopathy. CARDIOVASCULAR: Regular rate and rhythm. No murmurs, rubs, or gallops. Distal pulses are 2+ and symmetric. PULMONARY: No evidence of respiratory distress. Lungs clear to auscultation bilaterally. No wheezing, rales or rhonchi. ABDOMINAL: TTP of the epigastric region, RUQ with guarding. Pain radiates to the back. Soft. Non-distended. No rebound. No organomegaly. Normoactive bowel sounds. MUSCULOSKELETAL: Normal range of motion at all joints. No bony deformities or tenderness. No CVA tenderness. EXTREMITIES: No cyanosis. No clubbing. No edema. No calf tenderness. SKIN: Warm and dry. Normal capillary refill. No rashes. No jaundice. NEUROLOGICAL: Alert, awake, appropriate. Cranial nerves 2-12 intact. No deficits to light touch and temperature in face, upper extremities and lower extremities. No motor deficits in the in face, upper extremities and lower extremities. Normoreflexic in the upper and lower extremities. Normal speech. Toes are down- going bilaterally. Gait is normal without ataxia. PSYCHIATRIC: Cooperative. Good eye contact. Appropriate mood and affect. ED Treatment Course - LABORATORY CBC & Chemistry Diagram: 08/27/17 11:07 08/27/17 11:45 Medical Decision Making - Medical Decision Making 08/27/17 13:44 Patient is a 39-year-old female past medical history of breast cancer status post L lumpectomy, liver cirrhosis, hypertension, diabetes, anxiety and depression presents to the emergency department today with worsening epigastric pain. Patient has been seen multiple times over the past month for similar symptoms. Patient is exquisitely tender on exam with guarding to the epigastric and right upper quadrant regions. No CVA tenderness. Concerned for cholecystitis at this time. Patient just had CT of the abdomen last visit on 08/22. We will defer CT at this time for abdominal ultrasound. Basic lab work and urine ordered at this time. Patient given morphine, Zofran and fluids for pain. Reevaluate. 08/27/17 15:29 Lab work shows elevated bili at 1.1. Ultrasound shows multiple stones with all bladder wall thickening and sludge, consistent with possible acute cholecystitis. Pain still present however decreased since morphine. Patient now able to ambulate from the emergency department. Urine shows 3+ leuks with over 100 WBCs. We'll also treat for presumed urinary tract infection at this time. Hilarysyn given. Page Dr. Stern for surgical consult and states that the patient should be admitted at this time. Dr. Groves called; case discussed and agrees with admission. *DC/Admit/Observation/Transfer Diagnosis at time of Disposition: Epigastric pain, Acute cholecystitis - Discharge Dispostion Condition at time of disposition: Guarded Decision to Admit order: Yes - Referrals - Patient Instructions - Post Discharge Activity
[2017-08-27] MEDS ORDERED: SODIUM CHLORIDE 1,000 ML IV STA (10:52)
[2017-08-27] MEDS ORDERED: ONDANSETRON 4 MG/2 ML VIAL IVPUSH ONE (10:52)
[2017-08-27] MEDS ORDERED: ONDANSETRON 4 MG/2 ML VIAL ONE (10:55)
[2017-08-27 11:18] LABS: BASO % 0.8 % (0-2.0); EOS % 0.2 % (0-4.5); HEMATOCRIT 38.6 % (32.4-45.2); LYMPH % 14.1 % (8-40); MCH 25.9 pg (25.7-33.7); MCHC 33.6 g/dl (32.0-36.0); MEAN CELL VOLUME 77.2 fl (80-96); MEAN PLT VOLUME 9.9 fl (7.5-11.1); NEUT % 80.9 % (42.8-82.8); PLATELET COUNT 100 K/MM3 (134-434); RBC 5.01 M/mm3 (3.60-5.2); RDW 16.9 % (11.6-15.6); WHITE BLOOD COUNT 6.2 K/mm3 (4.0-10.0)
[2017-08-27 11:31] LABS: INR 1.12 (0.82-1.09); PROTHROMBIN TIME (PATIENT) 12.6 SEC (9.7-13.0)
[2017-08-27 11:38] LABS: HCG,QUALITATIVE URINE NEGATIVE; URINE APPEARANCE SLCLOUDY; URINE BILIRUBIN NEGATIVE (<2.0 mg/dL); URINE COLOR YELLOW; URINE GLUCOSE (UA) NEGATIVE (NEGATIVE); URINE KETONE NEGATIVE (NEGATIVE); URINE LEUK ESTERASE 3+ (NEGATIVE); URINE NITRITE NEGATIVE (NEGATIVE); URINE PROTEIN NEGATIVE (NEGATIVE)
[2017-08-27 11:41] LABS: EPI CELLS RARE /HPF (FEW); URINE BACTERIA RARE /hpf (NONE SEEN); URINE HYALINE CAST 1 /lpf; URINE MUCUS RARE
[2017-08-27] MEDS ORDERED: morphine CARPU-JECT 4 MG/1 ML DISP.SYRIN IVPUSH ONE (11:45)
[2017-08-27] MEDS ORDERED: MORPHINE SULFATE 10 MG/1 ML *VIAL ONE (11:49)
[2017-08-27 12:22] LABS: ALBUMIN 4.5 g/dl (3.4-5.0); ANION GAP 12 (8-16); BILIRUBIN,TOTAL 1.1 mg/dL (0.2-1.0); BLOOD UREA NITROGEN 7 mg/dL (7-18); CALCIUM 9.6 mg/dL (8.5-10.1); CHLORIDE 103 mmol/L (98-107); CO2 26 mmol/L (21-32); CREATININE 0.7 mg/dL (0.55-1.02); GLUCOSE,RANDOM 119 mg/dL (74-106); LIPASE 159 U/L (73-393); POTASSIUM 3.9 mmol/L (3.5-5.1); SGOT/AST 29 U/L (15-37); SGPT/ALT 26 U/L (12-78); SODIUM 141 mmol/L (136-145); TOT PROT 7.7 g/dl (6.4-8.2)
[2017-08-27 12:23] LABS: ALK PHOS 159 U/L (45-117)
[2017-08-27] MEDS ORDERED: METOCLOPRAMIDE HCL INJECTION 10 MG/2 ML VIAL IVPB ONE (13:35)
[2017-08-27] MEDS ORDERED: morphine CARPU-JECT 2 MG/1 ML DISP.SYRIN IVPUSH ONE (13:36)
[2017-08-27] MEDS ORDERED: METOCLOPRAMIDE HCL INJECTION 10 MG/2 ML VIAL ONE (13:48)
[2017-08-27] MEDS ORDERED: morphine SULFATE 4 MG/ML VIAL ONE (13:48)
[2017-08-27] MEDS ORDERED: PIPERACILLIN/TAZOB 3.375 GM 3.375 GM in DEXTROSE 5%-WATER - 50 ML IVPB ONE (15:44)
[2017-08-27] MEDS ORDERED: PIPERACILLIN/TAZOB 3.375 GM 3.375 GM/50 ML BAG IVPB ONE (15:54)
[2017-08-27] MEDS ORDERED: NICOTINE 7 MG/24 HOURS TOPICAL PATCH TD ONE (18:00)
[2017-08-27] MEDS ORDERED: ALBUTEROL SO4 18 GM HFA INHALER IH PRN (20:00)
[2017-08-27] MEDS: FUROSEMIDE 40 MG TABLET (FP) PO SCH ×2 (20:00→20:51)
[2017-08-27] MEDS: SODIUM CHLORIDE 1,000 ML IV SCH (20:50)
[2017-08-27] MEDS: metFORMIN HCL 500 MG TABLET (FP) PO SCH (20:51)
[2017-08-27] MEDS: morphine SULFATE 4 MG/ML VIAL IVPUSH PRN (20:57)
[2017-08-27] MEDS: MONTELUKAST NA 10 MG TABLET PO SCH (21:00)
[2017-08-27] MEDS: RANITIDINE HCL 150 MG TABLET (FP) PO SCH (21:00)
[2017-08-27] MEDS: LORazepam 1 MG TABLET PO PRN (21:01)
[2017-08-27] MEDS: ESCITALOPRAM OXALATE 10 MG TABLET (FP) PO SCH (21:02)
[2017-08-27] MEDS: METOPROLOL TARTRATE 50 MG TABLET (FP) PO SCH (21:02)
[2017-08-27] MEDS: SUCRALFATE 1 GM/10 ML UNIT DOSE CUPS PO SCH (22:23)
[2017-08-27] MEDS: LACTULOSE 20 GM/30 ML UDC (FOR ORAL USE ONLY) PO SCH (22:33)
[2017-08-28] MEDS ORDERED: DEXTROSE 5%-WATER - 50 ML IVPB ONE ×2 (00:34→10:37)
[2017-08-28] MEDS ORDERED: PIPERACILLIN/TAZOBACTAM 3.375 GM VIAL IVPB ONE ×2 (00:34→10:37)
[2017-08-28] MEDS: PIPERACILLIN/TAZOB 3.375 GM 3.375 GM in DEXTROSE 5%-WATER - 50 ML IVPB SCH ×4 (02:00→17:35)
[2017-08-28] MEDS: morphine SULFATE 4 MG/ML VIAL IVPUSH PRN ×3 (02:40→18:37)
[2017-08-28] MEDS: FUROSEMIDE 40 MG TABLET (FP) PO SCH ×2 (06:16→13:46)
[2017-08-28] MEDS: metFORMIN HCL 500 MG TABLET (FP) PO SCH ×2 (06:17→17:05)
[2017-08-28] MEDS: SUCRALFATE 1 GM/10 ML UNIT DOSE CUPS PO SCH ×3 (06:19→21:02)
[2017-08-28] MEDS ORDERED: PANTOPRAZOLE 40 MG TABLET (FP) PO SCH (10:00)
[2017-08-28] MEDS ORDERED: INDOMETHACIN 50 MG RECTAL SUPPOSITORY PR ONE (10:21)
[2017-08-28] MEDS: LACTOBACILLUS ACIDOPHILUS 1 TABLET PO SCH (10:28)
[2017-08-28] MEDS: METOPROLOL TARTRATE 50 MG TABLET (FP) PO SCH ×2 (10:29→21:03)
[2017-08-28] MEDS: LACTULOSE 20 GM/30 ML UDC (FOR ORAL USE ONLY) PO SCH ×2 (10:29→21:03)
[2017-08-28] MEDS: ESCITALOPRAM OXALATE 10 MG TABLET (FP) PO SCH ×2 (10:29→21:03)
[2017-08-28] MEDS: amLODIPine BESYLATE 2.5 MG TABLET (FP) PO SCH (10:32)
[2017-08-28] MEDS: NICOTINE 14 MG/24 HOURS TOPICAL PATCH TD SCH (10:40)
[2017-08-28] MEDS: SODIUM CHLORIDE 1,000 ML IV SCH ×2 (10:43→20:00)
[2017-08-28] MEDS: LORazepam 1 MG TABLET PO PRN ×2 (10:51→21:02)
[2017-08-28] MEDS: ONDANSETRON 4 MG TABLET PO PRN ×2 (10:52→21:09)
--- NOTE | 2017-08-28 12:44 | HP ---
Admitting History and Physical - Primary Care Physician PCP: Josephine Groves S - Admission Chief Complaint: abdominal pain, dysuria, unable to eat History of Present Illness: Patient is a 47-year-old female past medical history of breast cancer status post L lumpectomy, liver cirrhosis, hypertension, diabetes, anxiety and depression presents to the emergency department today with epigastric pain no apetite, decreased po intake and weight loss. Patient has been having similar pain on/off for over 1 month. She states that today the pain is a 8 out of 10. She's been unable to keep any food or water down. Admits to vomiting and constipation. Upon her last visit on 08/21/2017, patient had a CAT scan done which showed layering of gallbladder sludge with suggestion of mild wall thickening. Denies fevers, chills, shortness of breath, difficulty breathing, chest pain, palpitations, diarrhea. Patient also states that she has had urinary frequency and urgency and is concerned she also has a urinary tract infection at this time. 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 PHYSIOTHERAPIST: Yes: Migraine, Other Cardiovascular: Yes: HTN Pulmonary: Yes: COPD Gastrointestinal: Yes: Gastritis Hepatobiliary: Yes: Cirrhosis ...LMP: 08/26/03 ...: No Heme/Onc: Yes: Cancer Rheumatology: Yes: Other (Psoriatic arthritis) Endocrine: Yes: Diabetes Mellitus - Past Surgical History Past Surgical History: Yes: Laminectomy (C spine discectomy and fusion [facility] 2005, repeat fusion 2006, cervical hardware removed at [facility] 2009), Tonsillectomy, Upper Endoscopy - Smoking History Smoking history: Current every day smoker Have you smoked in the past 12 months: Yes Aproximately how many cigarettes per day: 20 - Alcohol/Substance Use Hx Alcohol Use: No History of Substance Use: reports: Prescription - Social History Usual Living Arrangement: Yes: Alone ADL: Independent Occupation: disability History of Recent Travel: No Home Medications - Allergies Allergies/Adverse Reactions: Allergies Allergy/AdvReac Type Severity Reaction Status Date / Time nickel Allergy Intermediate Rash Verified 08/27/17 10:26 timolol Allergy Swelling Verified 08/27/17 10:26 titanium Allergy Verified 08/27/17 10:26 - Home Medications Home Medications: Ambulatory Orders Albuterol Sulfate [Proair Hfa] 8.5 gm IH PRN 08/04/17 Amlodipine Besylate [Norvasc -] 2.5 mg PO DAILY 08/04/17 Cephalexin Monohydrate [Keflex -] 500 mg PO BID 08/04/17 Escitalopram Oxalate [Lexapro -] 20 mg PO BID 08/04/17 Esomeprazole Magnesium 40 mg PO DAILY 08/04/17 Furosemide [Lasix] 40 mg PO BID 08/04/17 Hydromorphone HCl [Dilaudid 4 mg/ml Syringe] 4 mg IJ PRN 08/04/17 Lactobacillus Acidophilus [Acidophilus] 2 tab PO DAILY 08/04/17 Lactulose 10 gm PO BID 08/04/17 Lorazepam [Ativan] 1 mg PO BID 08/04/17 Metformin HCl 500 mg PO BID 08/04/17 Metoprolol Tartrate 100 mg PO BID 08/04/17 Montelukast Sodium [Singulair] 10 mg PO HS 08/04/17 Ondansetron HCl [Zofran] 8 mg PO PRN PRN 08/04/17 Ranitidine [Zantac -] 150 mg PO HS 08/04/17 Sucralfate Oral Suspension [Carafate Oral Suspension -] 1 gm PO TID 08/04/17 Family Disease History - Family Disease History Family Disease History: CA: Father (lung), Mother (lung) Review of Systems - Review of Systems Constitutional: reports: Loss of Appetite, Weakness (general). denies: Chills, Fever Eyes: denies: Blind Spots, Double Vision, Eye Pain HENT: denies: Difficult Swallowing Neck: denies: Decreased ROM, Stiffness, Tenderness Cardiovascular: denies: Chest Pain, Shortness of Breath Respiratory: denies: Cough, SOB Gastrointestinal: reports: Abdominal Pain, Bloating, Indigestion, Nausea, Vomiting. denies: Constipation, Diarrhea, Dysphagia, Melena, Rectal Bleeding, Vomiting Blood Genitourinary: reports: Burning, Dysuria, Frequency. denies: Discharge, Flank Pain, Hematuria, Vaginal Bleeding Breasts: reports: Lumps (s/p L breast lumpectomy). denies: Pain Musculoskeletal: reports: Back Pain (chronic) Integumentary: reports: Rash (psoriasis). denies: Eczema Neurological: reports: Headache (chronic migraines), Weakness (general). denies : Change in LOC, Change in Speech, Confusion, Dizziness, Parasthesia, Pre- Existing Deficit, Seizure, Syncope, Tremors, Unsteady Gait Endocrine: reports: Unexplained Weight Loss. denies: Excessive Sweating Hematology/Lymphatic: denies: Easily Bruised, Excessive Bleeding Psychiatric: reports: Altered Sleep Pattern, Anxiety, Depression. denies: Hallucinations, Panic, Paranoia, Suicidal Physical Examination Vital Signs: Vital Signs Temperature 98.4 F 08/28/17 09:40 Pulse Rate 87 08/28/17 09:40 Respiratory Rate 18 08/28/17 09:40 Blood Pressure 158/78 08/28/17 09:40 O2 Sat by Pulse Oximetry (%) 100 08/28/17 09:00 Constitutional: Yes: No Distress, Calm Eyes: Yes: Conjunctiva Clear HENT: Yes: Atraumatic Neck: Yes: Supple Cardiovascular: Yes: Regular Rate and Rhythm Respiratory: Yes: CTA Bilaterally Gastrointestinal: Yes: Soft, Tenderness (general and increased in epigastric area). No: Distention Renal/: No: CVA Tenderness - Left, CVA Tenderness - Right, Hematuria Musculoskeletal: No: Joint Stiffness, Joint Swelling Extremities: No: Cold, Cool, Cyanosis Edema: No Integumentary: Yes: Rash (psoriatic) Neurological: Yes: WNL, Alert, Oriented ...Motor Strength: WNL Psychiatric: Yes: WNL, Alert, Oriented. No: Agitated, Suicidal Ideation Labs: CBC, BMP 08/27/17 11:07 08/27/17 11:45 Imaging - Results Chest X-ray: Report Reviewed Cat Scan: Report Reviewed Ultrasound: Report Reviewed Other: Report Reviewed Assessment/Plan Patient is a 47-year-old female past medical history of breast cancer status post L lumpectomy, liver cirrhosis, hypertension, diabetes, anxiety and depression presents to the emergency department today with epigastric pain N/V and weight loss. Patient also states that she has had urinary frequency and urgency; abdomen CT and US c/w renal mass/cyst admit, NPO, IVF IV PPI IV antibiotics GI and surgery eval r/p PUD, acute cholecystitis; pt was referred in the past to [facility] and has chela coming up soon; will need EGD. eval r/o renal mass d/w pt will also need outpt f/u with r/o renal cancer ONC f/u s/p breast CA L lumpectomy, needs port placement for chemotx in the future per ONC pt is alos on chronic high doses of opiates pain meds prescribed by her outpt pain management dr. d/w pt possible risks and SE including but not limited to fall tolerance dependence gastroparesis chronic constipation, respiratory depression; I advised taper opiates to off, pt to f/u with her pain dr after DC home for an alternative pain treatment falls PFX DVT PFX teds, scds, no sq heparin b/o low PLT liver cirrhosis, also pt is fully ambulatory d/w pt and staff all the above, pt agreed with plan.
--- NOTE | 2017-08-28 15:09 | PN ---
Progress Note (short form) - Note Progress Note: ID consult dictated imp/reccd 47 year old female admitted from home- [facility] of chronic neck/back pain on fentanyl patch, recent left breast lumpectomy 08/07 with intermittent abdominal pain for last several weeks ws seen in ED 08/15, 08/15 and now 08/27 with abdominal pain question of cholycystitis has been raised us with cholelithiasis, ?bowel edema, HIDA scan results pending also notes dysuria no fevers or chills received 2 doses of zosyn since admission yesterday possible cholycystitis UTI cirrhosis chronic neck/Low back pain breast ca s/p lumpectomy rocephin/flagyl f/u cultures f/u HIDA scan surgery consult pending Problem List - Problems (1) Acute cholecystitis Code(s): K81.0 - ACUTE CHOLECYSTITIS (2) UTI (urinary tract infection) Code(s): N39.0 - URINARY TRACT INFECTION, SITE NOT SPECIFIED (3) Cirrhosis of liver Code(s): K74.60 - UNSPECIFIED CIRRHOSIS OF LIVER (4) Breast cancer Code(s): C50.919 - MALIGNANT NEOPLASM OF UNSP SITE OF UNSPECIFIED FEMALE BREAST (5) Psoriatic arthritis Code(s): L40.50 - ARTHROPATHIC PSORIASIS, UNSPECIFIED
[2017-08-28] MEDS ORDERED: DEXTROSE 5%-WATER 100 ML IVPB ONE (15:36)
--- NOTE | 2017-08-28 16:56 | CONS ---
DATE OF CONSULTATION: DATE OF DICTATION: 08/28/2017 REQUESTED BY: Josephine Groves MD HISTORY OF PRESENT ILLNESS: This is a 47-year-old woman with a past medical history of chronic pain. She has cervical and lumbar pain. She is on chronic narcotics. She has a history of recent diagnosis of breast cancer status post left breast lumpectomy, August 07. She has now been seen in the emergency room 3 times, August 15, August 21, and again now August 27, with abdominal pain. On August 21, she had a CAT scan of her abdomen and pelvis done. On August 27, she returned again with 8/10 abdominal pain. She notes nausea, but no vomiting. She has intermittent constipation. Reports that she feels it is due to her narcotics. She has been attempted to eat but has not been able to. The pain has been present for the last 2-3 weeks. She has no chest pain. She has no respiratory symptoms. She has had no fevers or chills. She has had no vomiting, but notes some nausea. She notes that she has some dysuria which she associates with the fact that she has not been drinking water and is dehydrated. ALLERGIES: SHE IS ALLERGIC TO NICKEL, TIMOLOL, AND TITANIUM. MEDICATIONS: At home, include albuterol inhaler, amlodipine, Lexapro, omeprazole, Lasix, Dilaudid, Lactobacillus, lactulose, lorazepam, metformin, metoprolol, Singulair, Zofran, Zantac, and sucralfate. She tells me she uses a fentanyl patch 200 mg every 3 days. PAST MEDICAL HISTORY: Notable for breast cancer recently diagnosed, peripheral arterial disease, DVT, diabetes, hypertension, hypercholesterolemia, liver cirrhosis felt secondary to fatty liver, depression/anxiety. She has a history of constipation which is felt to be due to her narcotics. Gastritis, GERD, hiatal hernia, pancreatitis in 2004 at [facility]. She has psoriatic arthritis that she has had since age 7. She has been off biologic since the fall. She has osteopenia, chronic lymphadenopathy. SURGICAL HISTORY: Notable for laminectomy. She had C-spine surgery and fusion in 2005, repeat fusion in 2006, with hardware removal in 2009. Status post tonsillectomy and left ovarian cystectomy. FAMILY HISTORY: No one else in the family has psoriatic arthritis. Notable for severe peripheral vascular disease in her father, and her mother of lung cancer. SOCIAL HISTORY: She lives with her sister. 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 She was [place] the [place] She is an everyday smoker. REVIEW OF SYSTEMS: As per HPI. PHYSICAL EXAMINATION: Vital Signs: Temperature is 98.7, pulse is 69, blood pressure 143/80, respiratory rate is 18. HEENT: She is normocephalic. Eyes are anicteric. She has no thrush or pharyngitis. NECK: Supple. LUNGS: Clear to auscultation. HEART: Regular rate and rhythm. ABDOMEN: Soft. She has right upper quadrant and mid epigastric discomfort to palpation. There is no rebound or guarding. BREASTS: Left breast incision is well healed. EXTREMITIES: Without edema. She does not have suprapubic or CVA pain. LABORATORY DATA: White count is 6.2, hemoglobin 13, platelets are 100,000. This appears to be h ER baseline. INR is 1.12. BUN 7 and creatinine 0.7. Total bilirubin 1.1 with alkaline phosphatase of 159. Urinalysis is 3+ leukocyte esterase with 198 white cells. In summary, this is a 47-year-old woman with: 1. Possible cholecystitis. Sonogram shows cholelithiasis with questionable wall thickening. HIDA scan results are pending. 2. Urinary tract infection. She has dysuria and evidence of pyuria. 3. History of liver cirrhosis felt secondary to nonalcoholic steatohepatitis. 4. Chronic neck and low back pain. 5. Breast cancer status post lumpectomy. RECOMMENDATIONS: Suggest we treat her with Rocephin and Flagyl. Follow up her cultures and HIDA scan. Surgery consult is pending. Further recommendations to follow based on her clinical course. AVA ROLAND M.D. [id number]
[2017-08-28] MEDS ORDERED: NICOTINE 7 MG/24 HOURS TOPICAL PATCH TD ONE (17:01)
[2017-08-28] MEDS: CEFTRIAXONE 2 GM in DEXTROSE 5%-WATER 100 ML IVPB SCH (17:02)
[2017-08-28] MEDS: RANITIDINE HCL 150 MG TABLET (FP) PO SCH (21:02)
[2017-08-28] MEDS: MONTELUKAST NA 10 MG TABLET PO SCH (21:03)
--- NOTE | 2017-08-28 22:54 | CONSULT ---
Consult - text type - Consultation Consultation Note: Patient is a 39-year-old female past medical history of breast cancer status post L lumpectomy, liver cirrhosis, hypertension, diabetes, anxiety and depression presents to the emergency department with epigastric pain. Patient has been having similar pain for approximately 3 weeks. Admits to vomiting and constipation. Upon her last visit on 08/21/2017, patient had a CAT scan done which showed layering of gallbladder sludge with suggestion of mild wall thickening. Denies fevers, chills, shortness of breath, difficulty breathing, chest pain, palpitations, diarrhea. Patient also states that she has had urinary frequency and urgency Past History cirrhosis/portal HTN DM HTN Depression/anxiety psoriasis and psoriatic arthritis C spine surgery Breast Cancer Allergies/Adverse Reactions: Allergies Allergy/AdvReac Type Severity Reaction Status Date / Time nickel Allergy Intermediate Rash Verified 08/27/17 10:26 timolol Allergy Swelling Verified 08/27/17 10:26 titanium Allergy Verified 08/27/17 10:26 Home Medications: Ambulatory Orders Albuterol Sulfate [Proair Hfa] 8.5 gm IH PRN 08/04/17 Amlodipine Besylate [Norvasc -] 2.5 mg PO DAILY 08/04/17 Cephalexin Monohydrate [Keflex -] 500 mg PO BID 08/04/17 Escitalopram Oxalate [Lexapro -] 20 mg PO BID 08/04/17 Esomeprazole Magnesium 40 mg PO DAILY 08/04/17 Furosemide [Lasix] 40 mg PO BID 08/04/17 Hydromorphone HCl [Dilaudid 4 mg/ml Syringe] 4 mg IJ PRN 08/04/17 Lactobacillus Acidophilus [Acidophilus] 2 tab PO DAILY 08/04/17 Lactulose 10 gm PO BID 08/04/17 Lorazepam [Ativan] 1 mg PO BID 08/04/17 Metformin HCl 500 mg PO BID 08/04/17 Metoprolol Tartrate 100 mg PO BID 08/04/17 Montelukast Sodium [Singulair] 10 mg PO HS 08/04/17 Ondansetron HCl [Zofran] 8 mg PO PRN PRN 08/04/17 Ranitidine [Zantac -] 150 mg PO HS 08/04/17 Sucralfate Oral Suspension [Carafate Oral Suspension -] 1 gm PO TID 08/04/17 - Surgical History Orthopedic Surgery: Yes (3 neck sx's (2005, 2006, 2009)) - Suicide/Smoking/Psychosocial Hx Smoking History: Current every day smoker - Vital Signs Last Vital Signs Temp Pulse Resp BP Pulse Ox 99.0 F 80 20 136/50 100 08/28/17 16:35 08/28/17 16:35 08/28/17 19:56 08/28/17 16:35 08/28/17 19:56 Well developed, well nourished. Awake and alert. No acute distress. HEENT: Normocephalic, atraumatic. No conjunctival pallor. Sclera are non-icteric. Moist mucous membranes. Oropharynx is clear. NECK: Supple. Full ROM. CARDIOVASCULAR: Regular rate and rhythm. No murmurs, rubs, or gallops. PULMONARY: No evidence of respiratory distress. Lungs clear to auscultation bilaterally. No wheezing, rales or rhonchi. ABDOMINAL: TTP of the epigastric region, RUQ with guarding. Pain radiates to the back. Soft. Non-distended. No rebound. No organomegaly. Normoactive bowel sounds. EXTREMITIES: No cyanosis. No clubbing. No edema. No calf tenderness. SKIN: Warm and dry. Normal capillary refill. No rashes. No jaundice. NEUROLOGICAL: Alert, awake, appropriate. A/P Patient is a 39-year-old female recently diagnosed breast cancer status post L lumpectomy/ ALND on 08/07/17, T2, N0, ER-/MD-/Her2-2+/FISH pending. Also with cirrhosis/fatty liver/portal HTN/anxiety/depression/chronic opiate dependence/ psoriasis/psoriatic arthritis Patient comes in with RUQ pain. u/s suspicious for chcolecystitis HIDA scan does not show cystic duct obstruction also on treatment for UTI with rocephin Will request ID clearence for port placement will request neuro consult to r/o neuropathy request derm/rheum consults regarding psoriatic arthritis request gi consult Based on above course/w/u and depending on HEr2 status on final path will plan adjuvant therapy with single agent taxol,weekly will follow
[2017-08-29] MEDS: SODIUM CHLORIDE 1,000 ML IV SCH ×3 (05:54→21:16)
[2017-08-29] MEDS: SUCRALFATE 1 GM/10 ML UNIT DOSE CUPS PO SCH ×3 (05:55→21:00)
[2017-08-29] MEDS: metFORMIN HCL 500 MG TABLET (FP) PO SCH ×2 (06:04→17:27)
[2017-08-29] MEDS: FUROSEMIDE 40 MG TABLET (FP) PO SCH ×2 (06:04→14:19)
--- NOTE | 2017-08-29 07:22 | PN ---
Progress Note, Physician Chief Complaint: feels a little better less epigatsric pain, no N/V but on clear fluids asked for her fentanyl patch 200 mcg/h q48h - said she is on this dose at home for years; aware of possible risks and SE tests and consults reviewed and d/w pt HIDA scan negative; will need EGD also will need MRI r/o renal mass / cancer, eval pending; d/w pt MRI and eval can be done outpt too (within 1-2 weeks of DC home), and she will need f/u renal US in 3 months, she is aware - Current Medication List Current Medications: Active Medications Albuterol Sulfate (Ventolin Hfa Inhaler -) 2 puff IH Q4H PRN PRN Reason: WHEEZING Amlodipine Besylate (Norvasc -) 2.5 mg PO DAILY [facility] Last Admin: 08/28/17 10:32 Dose: Not Given Escitalopram Oxalate (Lexapro -) 20 mg PO BID ANY Last Admin: 08/28/17 21:03 Dose: Not Given Furosemide (Lasix -) 40 mg PO BIDLASIX ANY Last Admin: 08/29/17 06:04 Dose: Not Given Sodium Chloride (Normal Saline -) 1,000 mls @ 100 mls/hr IV ASDIR ANY Last Admin: 08/29/17 05:54 Dose: 100 mls/hr Ceftriaxone Sodium 2 gm/ (Dextrose) 100 mls @ 200 mls/hr IVPB DAILY ANY PRN Reason: Protocol Last Admin: 08/28/17 17:02 Dose: 200 mls/hr Metronidazole (Flagyl 500mg Premixed Ivpb -) 500 mg in 100 mls @ 100 mls/hr IVPB Q8H-IV ANY Last Admin: 08/29/17 02:43 Dose: 100 mls/hr Lactobacillus Acidophilus (Bacid -) 2 tab PO DAILY ANY Last Admin: 08/28/17 10:28 Dose: Not Given Lactulose (Cephulac (Oral Use)) 10 gm PO BID ANY Last Admin: 08/28/17 21:03 Dose: Not Given Lorazepam (Ativan -) 1 mg PO BID PRN PRN Reason: ANXIETY Last Admin: 08/28/17 21:02 Dose: 1 mg Metformin HCl (Glucophage -) 500 mg PO BIDAC [facility] Last Admin: 08/29/17 06:04 Dose: Not Given Metoprolol Tartrate (Lopressor -) 100 mg PO BID [facility] Last Admin: 08/28/17 21:03 Dose: Not Given Montelukast Sodium (Singulair -) 10 mg PO HS [facility] Last Admin: 08/28/17 21:03 Dose: Not Given Morphine Sulfate (Morphine Sulfate) 2 mg IVPUSH Q4H PRN PRN Reason: PAIN LEVEL 7 - 10 Last Admin: 08/28/17 18:37 Dose: 2 mg Nicotine (Nicoderm Patch -) 14 mg TD DAILY [facility] Last Admin: 08/28/17 10:40 Dose: 14 mg Ondansetron HCl (Zofran -) 8 mg PO TID PRN PRN Reason: NAUSEA Last Admin: 08/28/17 21:09 Dose: 8 mg Pantoprazole Sodium (Protonix Iv) 40 mg IVPB DAILY [facility] Ranitidine HCl (Zantac -) 150 mg PO HS [facility] Last Admin: 08/28/17 21:02 Dose: 150 mg Sucralfate (Carafate Oral Suspension -) 1 gm PO TID [facility] Last Admin: 08/29/17 05:55 Dose: 1 gm - Objective Vital Signs: Vital Signs Temperature 98.7 F 08/29/17 06:09 Pulse Rate 77 08/29/17 06:09 Respiratory Rate 20 08/29/17 06:09 Blood Pressure 145/74 08/29/17 06:09 O2 Sat by Pulse Oximetry (%) 100 08/28/17 19:56 Constitutional: Yes: No Distress, Calm Eyes: Yes: Conjunctiva Clear HENT: Yes: Atraumatic Neck: Yes: Supple Cardiovascular: Yes: Regular Rate and Rhythm Respiratory: Yes: CTA Bilaterally Gastrointestinal: Yes: Soft, Hepatomegaly, Tenderness, Epigastrium. No: Distention Genitourinary: No: CVA Tenderness - Left, CVA Tenderness - Right Musculoskeletal: No: Joint Stiffness, Joint Swelling Extremities: No: Cold, Cool, Cyanosis Edema: No Integumentary: No: Rash, Venous Stasis Changes Neurological: Yes: WNL, Alert, Oriented ...Motor Strength: WNL Psychiatric: Yes: WNL, Alert, Oriented. No: Agitated, Suicidal Ideation Labs: INR, PTT INR 1.12 (0.82-1.09) 08/27/17 11:07 - ....Imaging Chest X-ray: Report Reviewed Other: Report Reviewed Assessment/Plan Patient is a 47-year-old female past medical history of breast cancer status post L lumpectomy, liver cirrhosis, hypertension, diabetes, anxiety and depression presents to the emergency department today with epigastric pain N/V and weight loss. Patient also states that she has had urinary frequency and urgency; abdomen CT and US c/w renal mass/cyst admit, clear fluids diet if tolerated, IVF IV PPI IV antibiotics GI and surgery f/u; will need also f/u at [facility] and has chela coming up soon; eval r/o renal mass d/w pt will also need outpt f/u with r/o renal cancer and 3 months renal US f/u d/w pt ONC f/u s/p breast CA L lumpectomy, needs port placement for chemotx in the future per ONC pt is alos on chronic high doses of opiates pain meds prescribed by her outpt pain management dr. d/w pt possible risks and SE including but not limited to fall tolerance dependence gastroparesis chronic constipation, respiratory depression; I advised taper opiates to off, pt to f/u with her pain dr after DC home for an alternative pain treatment falls PFX DVT PFX teds, scds, no sq heparin b/o low PLT liver cirrhosis, also pt is fully ambulatory d/w pt and staff all the above, pt agreed with plan.
[2017-08-29 07:24] LABS: BASO % 0.5 % (0-2.0); EOS % 1.8 % (0-4.5); HEMATOCRIT 35.4 % (32.4-45.2); HEMOGLOBIN 11.9 GM/dL (10.7-15.3); LYMPH % 44.7 % (8-40); MCHC 33.5 g/dl (32.0-36.0); MEAN CELL VOLUME 77.6 fl (80-96); MEAN PLT VOLUME 9.7 fl (7.5-11.1); MONO % 7.8 % (3.8-10.2); NEUT % 45.2 % (42.8-82.8); PLATELET COUNT 92 K/MM3 (134-434); RBC 4.56 M/mm3 (3.60-5.2); RDW 16.7 % (11.6-15.6); WHITE BLOOD COUNT 3.2 K/mm3 (4.0-10.0)
[2017-08-29 07:51] LABS: CHLORIDE 109 mmol/L (98-107); POTASSIUM 3.9 mmol/L (3.5-5.1); SODIUM 143 mmol/L (136-145)
[2017-08-29 08:02] LABS: ALBUMIN 3.7 g/dl (3.4-5.0); ALK PHOS 131 U/L (45-117); ANION GAP 7 (8-16); BILIRUBIN,TOTAL 0.8 mg/dL (0.2-1.0); BLOOD UREA NITROGEN 6 mg/dL (7-18); CALCIUM 8.7 mg/dL (8.5-10.1); CO2 27 mmol/L (21-32); CREATININE 0.6 mg/dL (0.55-1.02); GLUCOSE,RANDOM 76 mg/dL (74-106); SGOT/AST 20 U/L (15-37); SGPT/ALT 19 U/L (12-78); TOT PROT 6.7 g/dl (6.4-8.2)
[2017-08-29 08:37] LABS: INR 1.14 (0.82-1.09); PROTHROMBIN TIME (PATIENT) 12.9 SEC (9.7-13.0)
[2017-08-29 08:39] LABS: ACTIVATED PTT 30.9 SECONDS (26.9-34.4)
[2017-08-29] MEDS ORDERED: DEXTROSE 5%-WATER 100 ML IVPB ONE (09:07)
[2017-08-29] MEDS: CEFTRIAXONE 2 GM in DEXTROSE 5%-WATER 100 ML IVPB SCH (09:30)
[2017-08-29] MEDS: PANTOPRAZOLE SODIUM 40 MG VIAL IVPB SCH (09:32)
[2017-08-29] MEDS: LACTOBACILLUS ACIDOPHILUS 1 TABLET PO SCH (09:33)
[2017-08-29] MEDS: morphine SULFATE 4 MG/ML VIAL IVPUSH PRN ×2 (09:37→23:54)
[2017-08-29] MEDS: LORazepam 1 MG TABLET PO PRN (09:40)
[2017-08-29] MEDS: METOPROLOL TARTRATE 50 MG TABLET (FP) PO SCH ×2 (09:41→21:00)
[2017-08-29] MEDS: LACTULOSE 20 GM/30 ML UDC (FOR ORAL USE ONLY) PO SCH ×2 (09:41→21:01)
[2017-08-29] MEDS: ESCITALOPRAM OXALATE 10 MG TABLET (FP) PO SCH ×2 (09:41→21:00)
[2017-08-29] MEDS: amLODIPine BESYLATE 2.5 MG TABLET (FP) PO SCH (09:42)
[2017-08-29] MEDS: NICOTINE 14 MG/24 HOURS TOPICAL PATCH TD SCH (09:42)
--- NOTE | 2017-08-29 09:45 | CONSULT ---
- Consultation REQUESTING PROVIDER: BERTA Napoles CONSULT REQUEST: We have been asked to surgically evaluate this patient for ( specify). PCP:Josephine Groves HISTORY OF PRESENT ILLNESS: DAYSI who is a 47 y/o female w/recently txed carcinoma of the breast awaiting adjuvant tx. and also with cirrhosis and c/o epigastric and ? RUQ abdominal pain which started 3 weeks ago; she has known cirrhosis of unknown origin; she was seen by a liver specialist at [facility]; she told me she was not having a liver bx.; she has associated nausea and no vomiting; she has NOC; she denies dark urine/light stools; NOC.. PMHx: cirrhosis; anxiety; depression HTN; NIDDM PSHx: left lumpectomy and AXLND Home Medications Medication Instructions Recorded Albuterol Sulfate [Proair Hfa] 8.5 gm IH PRN 08/04/17 Amlodipine Besylate [Norvasc -] 2.5 mg PO DAILY 08/04/17 Cephalexin Monohydrate [Keflex -] 500 mg PO BID 08/04/17 Escitalopram Oxalate [Lexapro -] 20 mg PO BID 08/04/17 Esomeprazole Magnesium 40 mg PO DAILY 08/04/17 Furosemide [Lasix] 40 mg PO BID 08/04/17 Hydromorphone HCl [Dilaudid 4 4 mg IJ PRN 08/04/17 mg/ml Syringe] Lactobacillus Acidophilus 2 tab PO DAILY 08/04/17 [Acidophilus] Lactulose 10 gm PO BID 08/04/17 Lorazepam [Ativan] 1 mg PO BID 08/04/17 Metformin HCl 500 mg PO BID 08/04/17 Metoprolol Tartrate 100 mg PO BID 08/04/17 Montelukast Sodium [Singulair] 10 mg PO HS 08/04/17 Ondansetron HCl [Zofran] 8 mg PO PRN PRN 08/04/17 Ranitidine [Zantac -] 150 mg PO HS 08/04/17 Sucralfate Oral Suspension 1 gm PO TID 08/04/17 [Carafate Oral Suspension -] Allergies Allergy/AdvReac Type Severity Reaction Status Date / Time nickel Allergy Intermediate Rash Verified 08/27/17 10:26 timolol Allergy Swelling Verified 08/27/17 10:26 titanium Allergy Verified 08/27/17 10:26 PHYSICAL EXAM: GENERAL: Awake, alert, and fully oriented, in no acute distress. HEAD: Normal with no signs of trauma. EYES: sclera anicteric, conjunctiva clear. NECK: Normal ROM, supple without lymphadenopathy, JVD, or masses. ABDOMEN: Soft, nontender, not distended, normoactive bowel sounds, no guarding, no rebound, no masses. No organomegaly. No hernias MUSCULOSKELETAL: Normal ROM at all joints. No bony deformities or tenderness. No CVA tenderness. UPPER EXTREMITIES: 2+ pulses, warm, well-perfused. No cyanosis. Cap refill <2 seconds. No peripheral edema. LOWER EXTREMITIES: 2+ pulses, warm, well-perfused. No calf tenderness. No peripheral edema. NEUROLOGICAL: Normal speech, gait not observed. PSYCH: Cooperative. Good eye contact. Appropriate mood and affect. SKIN: Warm, dry, psoriasis present Vital Signs Temperature 98.7 F 08/29/17 06:09 Pulse Rate 77 08/29/17 06:09 Respiratory Rate 20 08/29/17 06:09 Blood Pressure 145/74 08/29/17 06:09 O2 Sat by Pulse Oximetry (%) 100 08/28/17 19:56 Lab Results WBC 3.2 K/mm3 (4.0-10.0) L D 08/29/17 06:40 RBC 4.56 M/mm3 (3.60-5.2) 08/29/17 06:40 Hgb 11.9 GM/dL (10.7-15.3) 08/29/17 06:40 Hct 35.4 % (32.4-45.2) 08/29/17 06:40 MCV 77.6 fl (80-96) L 08/29/17 06:40 MCHC 33.5 g/dl (32.0-36.0) 08/29/17 06:40 RDW 16.7 % (11.6-15.6) H 08/29/17 06:40 Plt Count 92 K/MM3 (134-434) L 08/29/17 06:40 Sodium 143 mmol/L (136-145) 08/29/17 06:40 Potassium 3.9 mmol/L (3.5-5.1) 08/29/17 06:40 Chloride 109 mmol/L (98-107) H 08/29/17 06:40 Carbon Dioxide 27 mmol/L (21-32) 08/29/17 06:40 Anion Gap 7 (8-16) L 08/29/17 06:40 BUN 6 mg/dL (7-18) L 08/29/17 06:40 Creatinine 0.6 mg/dL (0.55-1.02) 08/29/17 06:40 Random Glucose 76 mg/dL (74-106) 08/29/17 06:40 Calcium 8.7 mg/dL (8.5-10.1) 08/29/17 06:40 INR 1.14 (0.82-1.09) 08/29/17 06:40 HIDA scan negative. US and CT reviewed IMP;no evidence of cholecystitis PLAN: Suggest GI for possible EGD and conservative tx. given cirrhosis and thrombocytopenia. Huseyin Stern MD FACS
[2017-08-29] MEDS: ONDANSETRON 4 MG TABLET PO PRN (09:55)
[2017-08-29] MEDS: fentaNYL 100mcg/hr PATCH.TD72 TD SCH (12:57)
[2017-08-29] MEDS: FENTANYL PATCH WASTE TD PRN (13:01)
--- NOTE | 2017-08-29 14:27 | PN ---
Progress Note (short form) - Note Progress Note: less abd pain no bm dysuria almost resolved no fevers Vital Signs Period Temp Pulse Resp BP Sys/Wing Pulse Ox Last 24 Hr 98.7 F-99.0 F 69-88 18-20 130-145/50-80 100 cor-rrr lungs clear abd soft,nt ext no edema CBC, BMP 08/29/17 06:40 08/29/17 06:40 Microbiology 08/28/17 02:00 Urine - Urine Clean Catch Urine Culture - Final NO GROWTH OBTAINED hida scan negative a/p UTI cirrhosis chronic neck/Low back pain breast ca s/p lumpectomy rocephin d/c flagyl f/u cultures d/w Dr Groves Problem List - Problems (1) Acute cholecystitis Code(s): K81.0 - ACUTE CHOLECYSTITIS (2) UTI (urinary tract infection) Code(s): N39.0 - URINARY TRACT INFECTION, SITE NOT SPECIFIED (3) Cirrhosis of liver Code(s): K74.60 - UNSPECIFIED CIRRHOSIS OF LIVER (4) Breast cancer Code(s): C50.919 - MALIGNANT NEOPLASM OF UNSP SITE OF UNSPECIFIED FEMALE BREAST (5) Psoriatic arthritis Code(s): L40.50 - ARTHROPATHIC PSORIASIS, UNSPECIFIED
--- NOTE | 2017-08-29 19:42 | CON.GI ---
Consult Consult Specialty:: Gastroenterology Reason for Consultation:: epigastric pain, abnormal CAT scan of the abdomen/ liver - History of Present Illness History of Present Illness: chart reviewed. Events noted. as per initial intake:Patient is a 39-year- old female past medical history of breast cancer status post L lumpectomy, liver cirrhosis, hypertension, diabetes, anxiety and depression presents to the emergency department today with epigastric pain. Patient has been having similar pain for approximately 3 weeks. She states that today the pain is a 8 out of 10. She's been unable to keep any food or water down. Admits to vomiting and constipation. Upon her last visit on 08/21/2017, patient had a CAT scan done which showed layering of gallbladder sludge with suggestion of mild wall thickening. Denies fevers, chills, shortness of breath, difficulty breathing, chest pain, palpitations, diarrhea. Patient also states that she has had urinary frequency and urgency and is concerned she also has a urinary tract infection at this time. At the time of his encounter the patient appears comfortable, not in distress, pain-free. Reports epigastric, deep pain for the last 3 weeks that prevents her from adequate po intake. The pain is associated with nausea, and vomiting. it is nonradiating, no obvious alleviating factors. There is no hematemesis, jaundice, low-grade fever, chills. A CAT scan of the abdomen and pelvis describes liver is cirrhotic, Gastric varices also noted. Patient reports no prior history of liver disease. At the same time she reports having sky line yarder at [facility], who started her on Aldactone and Lasix for lower extremity edema. The etiology of liver cirrhosis is unknown. Patient reports no usual recent factors such as alcohol, autoimmune hepatitis, metabolic syndrome. She reports no history of liver biopsy. Liver chemistries shows mild alk phos elevation, normal bili and transaminases. Normal PT, INR. Normal CBC, MCV. Platelets 90-100. Ultrasound of the liver revealed biliary sludge. HIDA scan negative. EGD 12 years ago was negative for stigmata of liver disease. Patient also had colonoscopy 9 years ago. Both procedures were done by Dr. Gilbert. 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 Anxiety disorder. Narcotic addiction - Past Surgical History Past Surgical History: Yes: Laminectomy (C spine discectomy and fusion [facility] 2005, repeat fusion 2006, cervical hardware removed at [facility] 2009), Tonsillectomy, Upper Endoscopy - Alcohol/Substance Use Hx Alcohol Use: No History of Substance Use: reports: Prescription - Smoking History Smoking history: Current every day smoker Have you smoked in the past 12 months: Yes Aproximately how many cigarettes per day: 20 - Social History Usual Living Arrangement: Alone ADL: Independent Occupation: disability History of Recent Travel: No Home Medications - Allergies Allergies/Adverse Reactions: Allergies Allergy/AdvReac Type Severity Reaction Status Date / Time nickel Allergy Intermediate Rash Verified 08/27/17 10:26 timolol Allergy Swelling Verified 08/27/17 10:26 titanium Allergy Verified 08/27/17 10:26 - Home Medications Home Medications: Ambulatory Orders Albuterol Sulfate [Proair Hfa] 8.5 gm IH PRN 08/04/17 Amlodipine Besylate [Norvasc -] 2.5 mg PO DAILY 08/04/17 Cephalexin Monohydrate [Keflex -] 500 mg PO BID 08/04/17 Escitalopram Oxalate [Lexapro -] 20 mg PO BID 08/04/17 Esomeprazole Magnesium 40 mg PO DAILY 08/04/17 Furosemide [Lasix] 40 mg PO BID 08/04/17 Hydromorphone HCl [Dilaudid 4 mg/ml Syringe] 4 mg IJ PRN 08/04/17 Lactobacillus Acidophilus [Acidophilus] 2 tab PO DAILY 08/04/17 Lactulose 10 gm PO BID 08/04/17 Lorazepam [Ativan] 1 mg PO BID 08/04/17 Metformin HCl 500 mg PO BID 08/04/17 Metoprolol Tartrate 100 mg PO BID 08/04/17 Montelukast Sodium [Singulair] 10 mg PO HS 08/04/17 Ondansetron HCl [Zofran] 8 mg PO PRN PRN 08/04/17 Ranitidine [Zantac -] 150 mg PO HS 08/04/17 Sucralfate Oral Suspension [Carafate Oral Suspension -] 1 gm PO TID 08/04/17 Family Disease History - Family Disease History Family History: Unremarkable Family Disease History: CA: Father (lung), Mother (lung) Review of Systems Findings/Remarks: as per HPI and H&P Physical Exam-GI Vital Signs: Vital Signs Temperature 98.5 F 08/29/17 14:39 Pulse Rate 75 08/29/17 14:39 Respiratory Rate 20 08/29/17 09:00 Blood Pressure 148/80 08/29/17 14:39 O2 Sat by Pulse Oximetry (%) 100 08/28/17 19:56 Constitutional: Yes: Anxious Eyes: Yes: Conjunctiva Clear HENT: Yes: Atraumatic Neck: Yes: Supple Cardiovascular: No: Bradycardia, Tachycardia Respiratory: Yes: Regular Gastrointestinal Inspection: No: Ascites, Distention ...Auscultate: Yes: Normoactive Bowel Sounds ...Palpate: Yes: Soft. No: Firm/Rigid, Guarding, Mass, Tenderness, Tenderness, Rebound Edema: No Integumentary: Yes: Other ( psoriatic lesions on lower and upper extremities) Neurological: Yes: Alert, Oriented Labs: CBC, BMP 08/29/17 06:40 08/29/17 06:40 INR, PTT INR 1.14 (0.82-1.09) 08/29/17 06:40 Fibrinogen 288.0 mg/dL (238-498) D 08/29/17 06:40 Laboratory Last Values WBC 3.2 K/mm3 (4.0-10.0) L D 08/29/17 06:40 RBC 4.56 M/mm3 (3.60-5.2) 08/29/17 06:40 Hgb 11.9 GM/dL (10.7-15.3) 08/29/17 06:40 Hct 35.4 % (32.4-45.2) 08/29/17 06:40 MCV 77.6 fl (80-96) L 08/29/17 06:40 MCH 26.0 pg (25.7-33.7) 08/29/17 06:40 MCHC 33.5 g/dl (32.0-36.0) 08/29/17 06:40 RDW 16.7 % (11.6-15.6) H 08/29/17 06:40 Plt Count 92 K/MM3 (134-434) L 08/29/17 06:40 MPV 9.7 fl (7.5-11.1) 08/29/17 06:40 Neutrophils % 45.2 % (42.8-82.8) D 08/29/17 06:40 Lymphocytes % 44.7 % (8-40) H D 08/29/17 06:40 Monocytes % 7.8 % (3.8-10.2) D 08/29/17 06:40 Eosinophils % 1.8 % (0-4.5) D 08/29/17 06:40 Basophils % 0.5 % (0-2.0) 08/29/17 06:40 PT with INR 12.90 SEC (9.7-13.0) 08/29/17 06:40 INR 1.14 (0.82-1.09) 08/29/17 06:40 PTT (Actin FS) 30.9 SECONDS (26.9-34.4) 08/29/17 06:40 Fibrinogen 288.0 mg/dL (238-498) D 08/29/17 06:40 Sodium 143 mmol/L (136-145) 08/29/17 06:40 Potassium 3.9 mmol/L (3.5-5.1) 08/29/17 06:40 Chloride 109 mmol/L (98-107) H 08/29/17 06:40 Carbon Dioxide 27 mmol/L (21-32) 08/29/17 06:40 Anion Gap 7 (8-16) L 08/29/17 06:40 BUN 6 mg/dL (7-18) L 08/29/17 06:40 Creatinine 0.6 mg/dL (0.55-1.02) 08/29/17 06:40 Creat Clearance w eGFR > 60 (>60) 08/29/17 06:40 POC Glucometer 84 UNITS (80-120) 08/29/17 06:43 Random Glucose 76 mg/dL (74-106) 08/29/17 06:40 Calcium 8.7 mg/dL (8.5-10.1) 08/29/17 06:40 Total Bilirubin 0.8 mg/dL (0.2-1.0) D 08/29/17 06:40 AST 20 U/L (15-37) 08/29/17 06:40 ALT 19 U/L (12-78) 08/29/17 06:40 Alkaline Phosphatase 131 U/L (45-117) H 08/29/17 06:40 Total Protein 6.7 g/dl (6.4-8.2) 08/29/17 06:40 Albumin 3.7 g/dl (3.4-5.0) 08/29/17 06:40 Lipase 159 U/L (73-393) 08/27/17 11:45 Vitamin B12 Cancelled 08/29/17 06:40 Serum Folate Cancelled 08/29/17 06:40 Urine Color Yellow 08/27/17 11:20 Urine Appearance Slcloudy 08/27/17 11:20 Urine pH 6.0 (5.0-8.0) 08/27/17 11:20 Ur Specific [place] 1.008 (1.001-1.035) 08/27/17 11:20 Urine Protein Negative (NEGATIVE) 08/27/17 11:20 Urine Glucose (UA) Negative (NEGATIVE) 08/27/17 11:20 Urine Ketones Negative (NEGATIVE) 08/27/17 11:20 Urine Blood 2+ (NEGATIVE) H 08/27/17 11:20 Urine Nitrite Negative (NEGATIVE) 08/27/17 11:20 Urine Bilirubin Negative (<2.0 mg/dL) 08/27/17 11:20 Urine Urobilinogen 2.0 mg/dL (0.2-1.0) H 08/27/17 11:20 Ur Leukocyte Esterase 3+ (NEGATIVE) H 08/27/17 11:20 Urine WBC (Auto) 198 /hpf (3-5) 08/27/17 11:20 Urine RBC (Auto) 9 /hpf (0-3) 08/27/17 11:20 Ur Epithelial Cells Rare /HPF (FEW) 08/27/17 11:20 Urine Bacteria Rare /hpf (NONE SEEN) 08/27/17 11:20 Hyaline Casts 1 /lpf 08/27/17 11:20 Urine Mucus Rare 08/27/17 11:20 Urine HCG, Qual Negative 08/27/17 11:20 Imaging - Results Cat Scan: Report Reviewed Ultrasound: Report Reviewed Problem List - Problems (1) Biliary sludge determined by ultrasound Code(s): K83.8 - OTHER SPECIFIED DISEASES OF BILIARY TRACT (2) Gastric varices Code(s): I86.4 - GASTRIC VARICES (3) Portal hypertension Code(s): K76.6 - PORTAL HYPERTENSION (4) Abdominal pain Code(s): R10.9 - UNSPECIFIED ABDOMINAL PAIN Qualifiers: Abdominal location: unspecified location Qualified Code(s): R10.9 - Unspecified abdominal pain (5) Cirrhosis of liver Code(s): K74.60 - UNSPECIFIED CIRRHOSIS OF LIVER Assessment/Plan Unclear etiology of the epigastric pain in settings of recently diagnosed liver cirrhosis with no obvious predisposing history. Blood work significant for thrombocytopenia. Normal PT, INR, bilirubin and transaminases. Mildly elevated alk phos ?Psoriasis. CT scan describes gastric varices and liver cirrhosis. The patient has appointment with her sky line yarder at [facility] on September 07. Surgical input regarding biliary sludge noted. HIDA scan results noted. plan upper endoscopy to assess esophageal varices and upper GI inflammatory states. Discussed with the patient in detail. She agrees with the plan. Continue Protonix 40 mg daily, 30 minutes before first meal of the day. Avoid NSAIDs. Low-salt diet.
[2017-08-29] MEDS: MONTELUKAST NA 10 MG TABLET PO SCH (21:01)
[2017-08-29] MEDS: RANITIDINE HCL 150 MG TABLET (FP) PO SCH (21:01)
--- NOTE | 2017-08-29 23:04 | CON.NEURO ---
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 Anxiety disorder. Narcotic addiction - Past Surgical History Past Surgical History: Yes: Laminectomy (C spine discectomy and fusion [facility] 2005, repeat fusion 2006, cervical hardware removed at [facility] 2009), Tonsillectomy, Upper Endoscopy - Alcohol/Substance Use Hx Alcohol Use: No History of Substance Use: reports: Prescription - Smoking History Smoking history: Current every day smoker Have you smoked in the past 12 months: Yes Aproximately how many cigarettes per day: 20 - Social History Usual Living Arrangement: Alone ADL: Independent Occupation: disability History of Recent Travel: No Home Medications - Allergies Allergies/Adverse Reactions: Allergies Allergy/AdvReac Type Severity Reaction Status Date / Time nickel Allergy Intermediate Rash Verified 08/27/17 10:26 timolol Allergy Swelling Verified 08/27/17 10:26 titanium Allergy Verified 08/27/17 10:26 - Home Medications Home Medications: Ambulatory Orders Albuterol Sulfate [Proair Hfa] 8.5 gm IH PRN 08/04/17 Amlodipine Besylate [Norvasc -] 2.5 mg PO DAILY 08/04/17 Cephalexin Monohydrate [Keflex -] 500 mg PO BID 08/04/17 Escitalopram Oxalate [Lexapro -] 20 mg PO BID 08/04/17 Esomeprazole Magnesium 40 mg PO DAILY 08/04/17 Furosemide [Lasix] 40 mg PO BID 08/04/17 Hydromorphone HCl [Dilaudid 4 mg/ml Syringe] 4 mg IJ PRN 08/04/17 Lactobacillus Acidophilus [Acidophilus] 2 tab PO DAILY 08/04/17 Lactulose 10 gm PO BID 08/04/17 Lorazepam [Ativan] 1 mg PO BID 08/04/17 Metformin HCl 500 mg PO BID 08/04/17 Metoprolol Tartrate 100 mg PO BID 08/04/17 Montelukast Sodium [Singulair] 10 mg PO HS 08/04/17 Ondansetron HCl [Zofran] 8 mg PO PRN PRN 08/04/17 Ranitidine [Zantac -] 150 mg PO HS 08/04/17 Sucralfate Oral Suspension [Carafate Oral Suspension -] 1 gm PO TID 08/04/17 Family Disease History - Family Disease History Family Disease History: CA: Father (lung), Mother (lung) Physical Exam-Neuro Vital Signs: Vital Signs Temperature 98.1 F 08/29/17 22:25 Pulse Rate 78 08/29/17 22:25 Respiratory Rate 20 08/29/17 22:25 Blood Pressure 140/81 08/29/17 22:25 O2 Sat by Pulse Oximetry (%) 100 08/29/17 20:28 Labs: CBC, BMP 08/29/17 06:40 08/29/17 06:40 INR, PTT INR 1.14 (0.82-1.09) 08/29/17 06:40 Fibrinogen 288.0 mg/dL (238-498) D 08/29/17 06:40 Assessment/Plan cc Possible Neuropathy HPI 39 Year old female history of breast cancer, s/p lumpectomy ,liver cirrhosis ,HTN,DM, anxiety and depression. Patient has three cervical surgery in past and she has been complaining of tingling and numbness in her both feet specially at the tip of her toes and great toe. Patient also had less frequent tingling and numbness in upper extremity. She had emg done in may it was normal. She is being considered for chemo{ taxol} and possible concern is worsening of neuropathy due to chemo. She also suffers from severe psoriasis and psoriatic arthirtis. 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 PMH as above FH,ROS,SH reviewed in chart Allergies Allergy/AdvReac Type Severity Reaction Status Date / Time nickel Allergy Intermediate Rash Verified 08/27/17 10:26 timolol Allergy Swelling Verified 08/27/17 10:26 titanium Allergy Verified 08/27/17 10:26 Home Medications: Albuterol Sulfate [Proair Hfa] 8.5 gm IH PRN 08/04/17 Amlodipine Besylate [Norvasc -] 2.5 mg PO DAILY 08/04/17 Cephalexin Monohydrate [Keflex -] 500 mg PO BID 08/04/17 Escitalopram Oxalate [Lexapro -] 20 mg PO BID 08/04/17 Esomeprazole Magnesium 40 mg PO DAILY 08/04/17 Furosemide [Lasix] 40 mg PO BID 08/04/17 Hydromorphone HCl [Dilaudid 4 mg/ml Syringe] 4 mg IJ PRN 08/04/17 Lactobacillus Acidophilus [Acidophilus] 2 tab PO DAILY 08/04/17 Lactulose 10 gm PO BID 08/04/17 Lorazepam [Ativan] 1 mg PO BID 08/04/17 Metformin HCl 500 mg PO BID 08/04/17 Metoprolol Tartrate 100 mg PO BID 08/04/17 Montelukast Sodium [Singulair] 10 mg PO HS 08/04/17 Ondansetron HCl [Zofran] 8 mg PO PRN PRN 08/04/17 Ranitidine [Zantac -] 150 mg PO HS 08/04/17 Sucralfate Oral Suspension [Carafate Oral Suspension -] 1 gm PO TID 08/04/17 Neurological Examination Alert oriented x 3 Cn all intact motor strength is normal 5/5 there is diminished sensation in the feet distally in toes reflex are grade 2 , normal in both ankle and knee reflex Assessment-- mild distal symmetrical sensory neuropathy , normal reflex and strength, emg previously done for upper extremity was normal Plan-- suggest to do emg/ncv and neuropathy work up ( ordered vitamin b12, folate tsh) - advice to refrain from etoh - consider gabapentin outpatient - emg , if not done inpatient , would do outpatient Thanking you so much Fantasma Carvajal MD
--- NOTE | 2017-08-30 05:32 | PN ---
Progress Note, Physician Chief Complaint: OOB to chair feels better, less abdominal pain; asked for steroid cream for skin and lotion for scalp for psoriasis - Current Medication List Current Medications: Active Medications Albuterol Sulfate (Ventolin Hfa Inhaler -) 2 puff IH Q4H PRN PRN Reason: WHEEZING Amlodipine Besylate (Norvasc -) 2.5 mg PO DAILY [facility] Last Admin: 08/29/17 09:42 Dose: Not Given Escitalopram Oxalate (Lexapro -) 20 mg PO BID [facility] Last Admin: 08/29/17 21:00 Dose: 20 mg Fentanyl (Duragesic 100mcg Patch -) 2 patch TD Q72H [facility] Last Admin: 08/29/17 12:57 Dose: 2 patch Furosemide (Lasix -) 40 mg PO BIDLASIX [facility] Last Admin: 08/29/17 14:19 Dose: Not Given Sodium Chloride (Normal Saline -) 1,000 mls @ 100 mls/hr IV ASDIR [facility] Last Admin: 08/29/17 21:16 Dose: 100 mls/hr Ceftriaxone Sodium 2 gm/ (Dextrose) 100 mls @ 200 mls/hr IVPB DAILY ANY PRN Reason: Protocol Last Admin: 08/29/17 09:30 Dose: 200 mls/hr Lactobacillus Acidophilus (Bacid -) 2 tab PO DAILY [facility] Last Admin: 08/29/17 09:33 Dose: 2 tab Lactulose (Cephulac (Oral Use)) 10 gm PO BID [facility] Last Admin: 08/29/17 21:01 Dose: 10 gm Lorazepam (Ativan -) 1 mg PO BID PRN PRN Reason: ANXIETY Last Admin: 08/29/17 09:40 Dose: 1 mg Metformin HCl (Glucophage -) 500 mg PO BIDAC [facility] Last Admin: 08/29/17 17:27 Dose: Not Given Metoprolol Tartrate (Lopressor -) 100 mg PO BID [facility] Last Admin: 08/29/17 21:00 Dose: 100 mg Miscellaneous (Duragesic Patch Waste) 1 each TD PRN PRN PRN Reason: PATCH WASTE Last Admin: 08/29/17 13:01 Dose: 1 each Montelukast Sodium (Singulair -) 10 mg PO HS [facility] Last Admin: 08/29/17 21:01 Dose: 10 mg Morphine Sulfate (Morphine Sulfate) 2 mg IVPUSH Q4H PRN PRN Reason: PAIN LEVEL 7 - 10 Last Admin: 08/29/17 23:54 Dose: 2 mg Nicotine (Nicoderm Patch -) 14 mg TD DAILY [facility] Last Admin: 08/29/17 09:42 Dose: 14 mg Ondansetron HCl (Zofran -) 8 mg PO TID PRN PRN Reason: NAUSEA Last Admin: 08/29/17 09:55 Dose: 8 mg Pantoprazole Sodium (Protonix Iv) 40 mg IVPB DAILY [facility] Last Admin: 08/29/17 09:32 Dose: 40 mg Ranitidine HCl (Zantac -) 150 mg PO BID [facility] Last Admin: 08/29/17 21:01 Dose: 150 mg Sucralfate (Carafate Oral Suspension -) 1 gm PO TID [facility] Last Admin: 08/29/17 21:00 Dose: 1 gm - Objective Vital Signs: Vital Signs Temperature 98.1 F 08/29/17 22:25 Pulse Rate 78 08/29/17 22:25 Respiratory Rate 20 08/29/17 22:25 Blood Pressure 140/81 08/29/17 22:25 O2 Sat by Pulse Oximetry (%) 100 08/29/17 20:28 Constitutional: Yes: No Distress, Calm Eyes: Yes: Conjunctiva Clear HENT: Yes: Atraumatic Neck: Yes: Supple Cardiovascular: Yes: Regular Rate and Rhythm Respiratory: Yes: CTA Bilaterally Gastrointestinal: Yes: Soft. No: Tenderness Genitourinary: No: CVA Tenderness - Left, CVA Tenderness - Right Musculoskeletal: No: Joint Stiffness, Joint Swelling Extremities: No: Cold, Cool, Cyanosis Edema: No Integumentary: Yes: Rash (psoriasis). No: Venous Stasis Changes Neurological: Yes: WNL, Alert, Oriented ...Motor Strength: WNL Psychiatric: Yes: WNL, Alert, Oriented. No: Agitated, Suicidal Ideation Labs: CBC, BMP 08/29/17 06:40 08/29/17 06:40 INR, PTT INR 1.14 (0.82-1.09) 08/29/17 06:40 Fibrinogen 288.0 mg/dL (238-498) D 08/29/17 06:40 - ....Imaging Other: Report Reviewed Assessment/Plan Patient is a 47-year-old female past medical history of breast cancer status post L lumpectomy, liver cirrhosis, hypertension, diabetes, anxiety and depression presents to the emergency department today with epigastric pain N/V and weight loss. Patient also states that she has had urinary frequency and urgency; abdomen CT and US c/w renal mass/cyst for EGD in am per GI pt agreed aware of risks bleeding IV PPI IV antibiotics GI and surgery f/u; will need also f/u at [facility] and has chela coming up soon; eval r/o renal mass d/w pt will also need outpt f/u with r/o renal cancer and 3 months renal US f/u d/w pt ONC f/u s/p breast CA L lumpectomy, needs port placement for chemotx in the future per ONC pt is alos on chronic high doses of opiates pain meds prescribed by her outpt pain management d/w pt possible risks and SE including but not limited to fall tolerance dependence gastroparesis chronic constipation, respiratory depression; I advised taper opiates to off, pt to f/u with her pain dr after DC home for an alternative pain treatment falls PFX DVT PFX teds, scds, no sq heparin b/o low PLT liver cirrhosis, also pt is fully ambulatory d/w pt and staff all the above, pt agreed with plan.
[2017-08-30] MEDS: SUCRALFATE 1 GM/10 ML UNIT DOSE CUPS PO SCH ×3 (06:02→21:28)
[2017-08-30] MEDS: FUROSEMIDE 40 MG TABLET (FP) PO SCH ×2 (06:02→15:02)
[2017-08-30] MEDS: metFORMIN HCL 500 MG TABLET (FP) PO SCH ×2 (06:02→18:31)
--- NOTE | 2017-08-30 08:51 | PN ---
Progress Note, Physician History of Present Illness: No acute events overnight. Comfortable. Ambulating. - Current Medication List Current Medications: Active Medications Albuterol Sulfate (Ventolin Hfa Inhaler -) 2 puff IH Q4H PRN PRN Reason: WHEEZING Amlodipine Besylate (Norvasc -) 2.5 mg PO DAILY [facility] Last Admin: 08/29/17 09:42 Dose: Not Given Escitalopram Oxalate (Lexapro -) 20 mg PO BID [facility] Last Admin: 08/29/17 21:00 Dose: 20 mg Fentanyl (Duragesic 100mcg Patch -) 2 patch TD Q72H [facility] Last Admin: 08/29/17 12:57 Dose: 2 patch Furosemide (Lasix -) 40 mg PO BIDLASIX [facility] Last Admin: 08/30/17 06:02 Dose: Not Given Sodium Chloride (Normal Saline -) 1,000 mls @ 100 mls/hr IV ASDIR [facility] Last Admin: 08/29/17 21:16 Dose: 100 mls/hr Ceftriaxone Sodium 2 gm/ (Dextrose) 100 mls @ 200 mls/hr IVPB DAILY [facility] PRN Reason: Protocol Last Admin: 08/29/17 09:30 Dose: 200 mls/hr Lactobacillus Acidophilus (Bacid -) 2 tab PO DAILY [facility] Last Admin: 08/29/17 09:33 Dose: 2 tab Lactulose (Cephulac (Oral Use)) 10 gm PO BID [facility] Last Admin: 08/29/17 21:01 Dose: 10 gm Lorazepam (Ativan -) 1 mg PO BID PRN PRN Reason: ANXIETY Last Admin: 08/29/17 09:40 Dose: 1 mg Metformin HCl (Glucophage -) 500 mg PO BIDAC [facility] Last Admin: 08/30/17 06:02 Dose: Not Given Metoprolol Tartrate (Lopressor -) 100 mg PO BID [facility] Last Admin: 08/29/17 21:00 Dose: 100 mg Miscellaneous (Duragesic Patch Waste) 1 each TD PRN PRN PRN Reason: PATCH WASTE Last Admin: 08/29/17 13:01 Dose: 1 each Montelukast Sodium (Singulair -) 10 mg PO HS [facility] Last Admin: 08/29/17 21:01 Dose: 10 mg Morphine Sulfate (Morphine Sulfate) 2 mg IVPUSH Q4H PRN PRN Reason: PAIN LEVEL 7 - 10 Last Admin: 08/29/17 23:54 Dose: 2 mg Nicotine (Nicoderm Patch -) 14 mg TD DAILY [facility] Last Admin: 08/29/17 09:42 Dose: 14 mg Ondansetron HCl (Zofran -) 8 mg PO TID PRN PRN Reason: NAUSEA Last Admin: 08/29/17 09:55 Dose: 8 mg Pantoprazole Sodium (Protonix Iv) 40 mg IVPB DAILY [facility] Last Admin: 08/29/17 09:32 Dose: 40 mg Ranitidine HCl (Zantac -) 150 mg PO BID [facility] Last Admin: 08/29/17 21:01 Dose: 150 mg Sucralfate (Carafate Oral Suspension -) 1 gm PO TID [facility] Last Admin: 08/30/17 06:02 Dose: 1 gm - Objective Vital Signs: Vital Signs Temperature 98.4 F 08/30/17 05:31 Pulse Rate 68 08/30/17 05:31 Respiratory Rate 20 08/30/17 05:31 Blood Pressure 129/74 08/30/17 05:31 O2 Sat by Pulse Oximetry (%) 100 08/29/17 20:28 Constitutional: Yes: No Distress, Calm Eyes: Yes: Conjunctiva Clear HENT: Yes: Atraumatic Neck: Yes: Supple Cardiovascular: No: Bradycardia, Tachycardia Respiratory: Yes: Regular Gastrointestinal: Yes: Normal Bowel Sounds, Soft. No: Melena, Rectal Bleeding, Tenderness, Vomiting Neurological: Yes: Alert, Oriented Labs: CBC, BMP 08/29/17 06:40 08/29/17 06:40 INR, PTT INR 1.14 (0.82-1.09) 08/29/17 06:40 Fibrinogen 288.0 mg/dL (238-498) D 08/29/17 06:40 Laboratory Last Values WBC 3.2 K/mm3 (4.0-10.0) L D 08/29/17 06:40 RBC 4.56 M/mm3 (3.60-5.2) 08/29/17 06:40 Hgb 11.9 GM/dL (10.7-15.3) 08/29/17 06:40 Hct 35.4 % (32.4-45.2) 08/29/17 06:40 MCV 77.6 fl (80-96) L 08/29/17 06:40 MCH 26.0 pg (25.7-33.7) 08/29/17 06:40 MCHC 33.5 g/dl (32.0-36.0) 08/29/17 06:40 RDW 16.7 % (11.6-15.6) H 08/29/17 06:40 Plt Count 92 K/MM3 (134-434) L 08/29/17 06:40 MPV 9.7 fl (7.5-11.1) 08/29/17 06:40 Neutrophils % 45.2 % (42.8-82.8) D 08/29/17 06:40 Lymphocytes % 44.7 % (8-40) H D 08/29/17 06:40 Monocytes % 7.8 % (3.8-10.2) D 08/29/17 06:40 Eosinophils % 1.8 % (0-4.5) D 08/29/17 06:40 Basophils % 0.5 % (0-2.0) 08/29/17 06:40 PT with INR 12.90 SEC (9.7-13.0) 08/29/17 06:40 INR 1.14 (0.82-1.09) 08/29/17 06:40 PTT (Actin FS) 30.9 SECONDS (26.9-34.4) 08/29/17 06:40 Fibrinogen 288.0 mg/dL (238-498) D 08/29/17 06:40 Sodium 143 mmol/L (136-145) 08/29/17 06:40 Potassium 3.9 mmol/L (3.5-5.1) 08/29/17 06:40 Chloride 109 mmol/L (98-107) H 08/29/17 06:40 Carbon Dioxide 27 mmol/L (21-32) 08/29/17 06:40 Anion Gap 7 (8-16) L 08/29/17 06:40 BUN 6 mg/dL (7-18) L 08/29/17 06:40 Creatinine 0.6 mg/dL (0.55-1.02) 08/29/17 06:40 Creat Clearance w eGFR > 60 (>60) 08/29/17 06:40 POC Glucometer 84 UNITS (80-120) 08/29/17 06:43 Random Glucose 76 mg/dL (74-106) 08/29/17 06:40 Calcium 8.7 mg/dL (8.5-10.1) 08/29/17 06:40 Total Bilirubin 0.8 mg/dL (0.2-1.0) D 08/29/17 06:40 AST 20 U/L (15-37) 08/29/17 06:40 ALT 19 U/L (12-78) 08/29/17 06:40 Alkaline Phosphatase 131 U/L (45-117) H 08/29/17 06:40 Total Protein 6.7 g/dl (6.4-8.2) 08/29/17 06:40 Albumin 3.7 g/dl (3.4-5.0) 08/29/17 06:40 Lipase 159 U/L (73-393) 08/27/17 11:45 Vitamin B12 Cancelled 08/29/17 06:40 Serum Folate Cancelled 08/29/17 06:40 TSH 2.01 uIU/ml (0.358-3.74) 08/30/17 06:30 Urine Color Yellow 08/27/17 11:20 Urine Appearance Slcloudy 08/27/17 11:20 Urine pH 6.0 (5.0-8.0) 08/27/17 11:20 Ur Specific [place] 1.008 (1.001-1.035) 08/27/17 11:20 Urine Protein Negative (NEGATIVE) 08/27/17 11:20 Urine Glucose (UA) Negative (NEGATIVE) 08/27/17 11:20 Urine Ketones Negative (NEGATIVE) 08/27/17 11:20 Urine Blood 2+ (NEGATIVE) H 08/27/17 11:20 Urine Nitrite Negative (NEGATIVE) 08/27/17 11:20 Urine Bilirubin Negative (<2.0 mg/dL) 08/27/17 11:20 Urine Urobilinogen 2.0 mg/dL (0.2-1.0) H 08/27/17 11:20 Ur Leukocyte Esterase 3+ (NEGATIVE) H 08/27/17 11:20 Urine WBC (Auto) 198 /hpf (3-5) 08/27/17 11:20 Urine RBC (Auto) 9 /hpf (0-3) 08/27/17 11:20 Ur Epithelial Cells Rare /HPF (FEW) 08/27/17 11:20 Urine Bacteria Rare /hpf (NONE SEEN) 08/27/17 11:20 Hyaline Casts 1 /lpf 08/27/17 11:20 Urine Mucus Rare 08/27/17 11:20 Urine HCG, Qual Negative 08/27/17 11:20 Problem List - Problems (1) Biliary sludge determined by ultrasound Code(s): K83.8 - OTHER SPECIFIED DISEASES OF BILIARY TRACT (2) Gastric varices Code(s): I86.4 - GASTRIC VARICES (3) Portal hypertension Code(s): K76.6 - PORTAL HYPERTENSION (4) Abdominal pain Code(s): R10.9 - UNSPECIFIED ABDOMINAL PAIN Qualifiers: Abdominal location: unspecified location Qualified Code(s): R10.9 - Unspecified abdominal pain (5) Cirrhosis of liver Code(s): K74.60 - UNSPECIFIED CIRRHOSIS OF LIVER Assessment/Plan Continue current care. EGD discussed with the patient in detail. She agrees with the plan. Nothing by mouth after midnight.
[2017-08-30] MEDS: SODIUM CHLORIDE 1,000 ML IV SCH ×2 (08:56→20:00)
[2017-08-30] MEDS ORDERED: HYDROCORTISONE 1% TOPICAL OINT 30 GM TUBE TP PRN (11:00)
[2017-08-30] MEDS ORDERED: HYDROCORTISONE 2.5% LOTION - 1 BOTTLE TP PRN (11:00)
[2017-08-30] MEDS: RANITIDINE HCL 150 MG TABLET (FP) PO SCH ×2 (11:09→21:28)
[2017-08-30] MEDS: LORazepam 1 MG TABLET PO PRN (11:09)
[2017-08-30] MEDS: LACTOBACILLUS ACIDOPHILUS 1 TABLET PO SCH ×2 (11:10→13:16)
[2017-08-30] MEDS: ESCITALOPRAM OXALATE 10 MG TABLET (FP) PO SCH ×2 (13:15→22:07)
[2017-08-30] MEDS: METOPROLOL TARTRATE 50 MG TABLET (FP) PO SCH ×2 (13:15→21:28)
[2017-08-30] MEDS: NICOTINE 14 MG/24 HOURS TOPICAL PATCH TD SCH (13:16)
[2017-08-30] MEDS: amLODIPine BESYLATE 2.5 MG TABLET (FP) PO SCH (13:27)
[2017-08-30] MEDS: LACTULOSE 20 GM/30 ML UDC (FOR ORAL USE ONLY) PO SCH ×2 (13:27→21:30)
--- NOTE | 2017-08-30 13:49 | PN ---
Progress Note (short form) - Note Progress Note: seen and examined +itching at the psoriatic plaques +scalp itching awaiting EGD chart reviewed MRI reviewed O/E: General: NAD HEENT: NCAT cor:RRR Lungs;CTA b/l Abd: NT LE: + multiple erythematous psoriatic plaques Last Vital Signs Temp Pulse Resp BP Pulse Ox 98.4 F 75 18 159/80 100 08/30/17 11:00 08/30/17 11:00 08/30/17 11:00 08/30/17 11:00 08/29/17 20:28 CBC, BMP 08/29/17 06:40 08/29/17 06:40 Current Medications Generic Name Dose Route Start Last Admin Trade Name Freq PRN Reason Stop Dose Admin Albuterol Sulfate 2 puff 08/27/17 20:00 Ventolin Hfa Inhaler - IH Q4H PRN WHEEZING Amlodipine Besylate 2.5 mg 08/28/17 10:00 08/30/17 13:27 Norvasc - PO Not Given DAILY ANY Escitalopram Oxalate 20 mg 08/27/17 22:00 08/30/17 13:15 Lexapro - PO 20 mg BID ANY Administration Fentanyl 2 patch 08/29/17 12:30 08/29/17 12:57 Duragesic 100mcg Patch - TD 2 patch Q72H ANY Administration Furosemide 40 mg 08/27/17 20:00 08/30/17 06:02 Lasix - PO Not Given BIDLASIX ANY Hydrocortisone 1 applic 08/30/17 11:00 08/30/17 12:40 Hytone 2.5% Lotion - TP 1 applic BID PRN Administration FOR ITCHING Hydrocortisone 1 applic 08/30/17 11:00 08/30/17 12:42 Hytone 1% Ointment - TP 1 applic BID PRN Administration FOR ITCHING Sodium Chloride 1,000 mls @ 100 mls/hr 08/27/17 20:00 08/30/17 08:56 Normal Saline - IV 100 mls/hr ASDIR ANY Administration Ceftriaxone Sodium 2 gm/ 100 mls @ 200 mls/hr 08/28/17 15:15 08/29/17 09:30 Dextrose IVPB 200 mls/hr DAILY ANY Administration Protocol Lactobacillus Acidophilus 2 tab 08/28/17 10:00 08/30/17 13:16 Bacid - PO 2 tab DAILY ANY Administration Lactulose 10 gm 08/27/17 22:00 08/30/17 13:27 Cephulac (Oral Use) PO Not Given BID ANY Lorazepam 1 mg 08/27/17 19:56 08/30/17 11:09 Ativan - PO 1 mg BID PRN Administration ANXIETY Metformin HCl 500 mg 08/27/17 20:00 08/30/17 06:02 Glucophage - PO Not Given BIDAC ANY Metoprolol Tartrate 100 mg 08/27/17 22:00 08/30/17 13:15 Lopressor - PO 100 mg BID ANY Administration Miscellaneous 1 each 08/29/17 12:17 08/29/17 13:01 Duragesic Patch Waste TD 1 each PRN PRN Administration PATCH WASTE Montelukast Sodium 10 mg 08/27/17 22:00 08/29/17 21:01 Singulair - PO 10 mg HS ANY Administration Morphine Sulfate 2 mg 08/27/17 19:59 08/29/17 23:54 Morphine Sulfate IVPUSH 2 mg Q4H PRN Administration PAIN LEVEL 7 - 10 Nicotine 14 mg 08/28/17 10:00 08/30/17 13:16 Nicoderm Patch - TD 14 mg DAILY ANY Administration Ondansetron HCl 8 mg 08/27/17 19:56 08/29/17 09:55 Zofran - PO 8 mg TID PRN Administration NAUSEA Pantoprazole Sodium 40 mg 08/29/17 10:00 08/29/17 09:32 Protonix Iv IVPB 40 mg DAILY ANY Administration Ranitidine HCl 150 mg 08/29/17 22:00 08/30/17 11:09 Zantac - PO 150 mg BID ANY Administration Sucralfate 1 gm 08/27/17 22:00 08/30/17 06:02 Carafate Oral Suspension - PO 1 gm TID ANY Administration Patient is a 39-year-old female recently diagnosed breast cancer status post L lumpectomy/ ALND on 08/07/17, T2, N0, ER-/[place]-/Her2-2+/FISH pending. Also with cirrhosis/fatty liver/portal HTN/anxiety/depression/chronic opiate dependence/ psoriasis/psoriatic arthritis Patient comes in with RUQ pain. u/s suspicious for cholecystitis HIDA scan does not show cystic duct obstruction also on treatment for UTI with rocephin all the consultants appreciated For EGD tomorrow for rheum c/s- further rx of psoriasis Derm consult- out of town. Based on above course/w/u and depending on HEr2 status on final path will plan adjuvant therapy with single agent taxol,weekly will follow
[2017-08-30] MEDS: PANTOPRAZOLE SODIUM 40 MG VIAL IVPB SCH (13:50)
[2017-08-30] MEDS: CEFTRIAXONE 2 GM in DEXTROSE 5%-WATER 100 ML IVPB SCH (15:02)
--- NOTE | 2017-08-30 16:44 | PN ---
Progress Note (short form) - Note Progress Note: Vascular surgery Pt for EGD meli. Will be on standby for port placement when needed. Please medically optimize. Nate Leyva DO
--- NOTE | 2017-08-30 17:15 | CON.GU ---
Consult Consult Specialty:: Referred by:: Medicine Reason for Consultation:: incidental renal mass - History of Present Illness Chief Complaint: renal mass History of Present Illness: 47 year woman with new diagnosis of triple negative breast cancer s/p lumpectomy who is admitted with a UTI She has a long history of psoriatic arthritis who has been taking biologicals for years. On work up she was seen to have an indeterminate mass approximately 1.4 cm. MRI confirms that there is no solid mass. - History Source History Provided By: Patient, Medical Record Limitations to Obtaining History: No Limitations - Past Medical History [employer]: Yes: Migraine, Other Cardio/Vascular: Yes: HTN Pulmonary: Yes: COPD Gastrointestinal: Yes: Gastritis Hepatobiliary: Yes: Cirrhosis Renal/: Yes: UTI ...LMP: 08/26/03 ...: No Rheumatology: Yes: Other (Psoriatic arthritis) Endocrine: Yes: Diabetes Mellitus Additional Medical History: Chronic lymphadenopathy. Anxiety disorder. Narcotic addiction - Past Surgical History Past Surgical History: Yes: Laminectomy (C spine discectomy and fusion [facility] 2005, repeat fusion 2006, cervical hardware removed at [facility] 2009), Tonsillectomy, Upper Endoscopy - Alcohol/Substance Use Hx Alcohol Use: No History of Substance Use: reports: Prescription - Smoking History Smoking history: Current every day smoker Have you smoked in the past 12 months: Yes Aproximately how many cigarettes per day: 20 - Social History Usual Living Arrangement: Alone ADL: Independent Occupation: disability History of Recent Travel: No Home Medications - Allergies Allergies/Adverse Reactions: Allergies Allergy/AdvReac Type Severity Reaction Status Date / Time nickel Allergy Intermediate Rash Verified 08/27/17 10:26 timolol Allergy Swelling Verified 08/27/17 10:26 titanium Allergy Verified 08/27/17 10:26 - Home Medications Home Medications: Ambulatory Orders Albuterol Sulfate [Proair Hfa] 8.5 gm IH PRN 08/04/17 Amlodipine Besylate [Norvasc -] 2.5 mg PO DAILY 08/04/17 Cephalexin Monohydrate [Keflex -] 500 mg PO BID 08/04/17 Escitalopram Oxalate [Lexapro -] 20 mg PO BID 08/04/17 Esomeprazole Magnesium 40 mg PO DAILY 08/04/17 Furosemide [Lasix] 40 mg PO BID 08/04/17 Hydromorphone HCl [Dilaudid 4 mg/ml Syringe] 4 mg IJ PRN 08/04/17 Lactobacillus Acidophilus [Acidophilus] 2 tab PO DAILY 08/04/17 Lactulose 10 gm PO BID 08/04/17 Lorazepam [Ativan] 1 mg PO BID 08/04/17 Metformin HCl 500 mg PO BID 08/04/17 Metoprolol Tartrate 100 mg PO BID 08/04/17 Montelukast Sodium [Singulair] 10 mg PO HS 08/04/17 Ondansetron HCl [Zofran] 8 mg PO PRN PRN 08/04/17 Ranitidine [Zantac -] 150 mg PO HS 08/04/17 Sucralfate Oral Suspension [Carafate Oral Suspension -] 1 gm PO TID 08/04/17 Family Disease History - Family Disease History Family Disease History: CA: Father (lung), Mother (lung) Review of Systems - Review of Systems Constitutional: reports: Loss of Appetite Respiratory: reports: No Symptoms Genitourinary: reports: Dysuria, Frequency Physical Exam- Vital Signs: Vital Signs Temperature 98.3 F 08/30/17 14:18 Pulse Rate 68 08/30/17 14:18 Respiratory Rate 18 08/30/17 14:18 Blood Pressure 130/75 08/30/17 14:18 O2 Sat by Pulse Oximetry (%) 100 08/30/17 09:00 Labs: CBC, BMP 08/29/17 06:40 08/29/17 06:40
[2017-08-30] MEDS: MONTELUKAST NA 10 MG TABLET PO SCH (21:28)
[2017-08-30] MEDS: morphine SULFATE 4 MG/ML VIAL IVPUSH PRN (22:04)
[2017-08-31] MEDS: SUCRALFATE 1 GM/10 ML UNIT DOSE CUPS PO SCH ×3 (06:12→21:29)
[2017-08-31] MEDS: FUROSEMIDE 40 MG TABLET (FP) PO SCH ×2 (06:12→13:41)
[2017-08-31] MEDS: metFORMIN HCL 500 MG TABLET (FP) PO SCH ×2 (06:12→17:21)
--- NOTE | 2017-08-31 06:16 | PN ---
Progress Note, Physician Chief Complaint: for EGD today; in bed NAD no new c/o VSS; NPO - Current Medication List Current Medications: Active Medications Albuterol Sulfate (Ventolin Hfa Inhaler -) 2 puff IH Q4H PRN PRN Reason: WHEEZING Amlodipine Besylate (Norvasc -) 2.5 mg PO DAILY [facility] Last Admin: 08/30/17 13:27 Dose: Not Given Escitalopram Oxalate (Lexapro -) 20 mg PO BID [facility] Last Admin: 08/30/17 22:07 Dose: 20 mg Fentanyl (Duragesic 100mcg Patch -) 2 patch TD Q72H [facility] Last Admin: 08/29/17 12:57 Dose: 2 patch Furosemide (Lasix -) 40 mg PO BIDLASIX [facility] Last Admin: 08/31/17 06:12 Dose: Not Given Hydrocortisone (Hytone 2.5% Lotion -) 1 applic TP BID PRN PRN Reason: FOR ITCHING Last Admin: 08/30/17 12:40 Dose: 1 applic Hydrocortisone (Hytone 1% Ointment -) 1 applic TP BID PRN PRN Reason: FOR ITCHING Last Admin: 08/30/17 12:42 Dose: 1 applic Sodium Chloride (Normal Saline -) 1,000 mls @ 100 mls/hr IV ASDIR [facility] Last Admin: 08/30/17 20:00 Dose: Not Given Ceftriaxone Sodium 2 gm/ (Dextrose) 100 mls @ 200 mls/hr IVPB DAILY ANY PRN Reason: Protocol Last Admin: 08/30/17 15:02 Dose: 200 mls/hr Lactobacillus Acidophilus (Bacid -) 2 tab PO DAILY [facility] Last Admin: 08/30/17 13:16 Dose: 2 tab Lactulose (Cephulac (Oral Use)) 10 gm PO BID [facility] Last Admin: 08/30/17 21:30 Dose: Not Given Lorazepam (Ativan -) 1 mg PO BID PRN PRN Reason: ANXIETY Last Admin: 08/30/17 11:09 Dose: 1 mg Metformin HCl (Glucophage -) 500 mg PO BIDAC [facility] Last Admin: 08/31/17 06:12 Dose: Not Given Metoprolol Tartrate (Lopressor -) 100 mg PO BID [facility] Last Admin: 08/30/17 21:28 Dose: 100 mg Miscellaneous (Duragesic Patch Waste) 1 each TD PRN PRN PRN Reason: PATCH WASTE Last Admin: 08/29/17 13:01 Dose: 1 each Montelukast Sodium (Singulair -) 10 mg PO HS [facility] Last Admin: 08/30/17 21:28 Dose: 10 mg Morphine Sulfate (Morphine Sulfate) 2 mg IVPUSH Q4H PRN PRN Reason: PAIN LEVEL 7 - 10 Last Admin: 08/30/17 22:04 Dose: 2 mg Nicotine (Nicoderm Patch -) 14 mg TD DAILY [facility] Last Admin: 08/30/17 13:16 Dose: 14 mg Ondansetron HCl (Zofran -) 8 mg PO TID PRN PRN Reason: NAUSEA Last Admin: 08/29/17 09:55 Dose: 8 mg Pantoprazole Sodium (Protonix Iv) 40 mg IVPB DAILY [facility] Last Admin: 08/30/17 13:50 Dose: 40 mg Ranitidine HCl (Zantac -) 150 mg PO BID [facility] Last Admin: 08/30/17 21:28 Dose: 150 mg Sucralfate (Carafate Oral Suspension -) 1 gm PO TID [facility] Last Admin: 08/31/17 06:12 Dose: Not Given - Objective Vital Signs: Vital Signs Temperature 98.6 F 08/30/17 20:43 Pulse Rate 80 08/30/17 20:43 Respiratory Rate 20 08/30/17 20:43 Blood Pressure 130/70 08/30/17 20:43 O2 Sat by Pulse Oximetry (%) 100 08/30/17 20:12 Constitutional: Yes: No Distress, Calm Eyes: Yes: Conjunctiva Clear HENT: Yes: Atraumatic Neck: Yes: Supple Cardiovascular: Yes: Regular Rate and Rhythm Respiratory: Yes: CTA Bilaterally Gastrointestinal: Yes: Soft. No: Tenderness Genitourinary: No: CVA Tenderness - Left, CVA Tenderness - Right Musculoskeletal: No: Joint Stiffness, Joint Swelling Extremities: No: Cold, Cool Edema: No Integumentary: Yes: Rash (psoriatic rash legs). No: Venous Stasis Changes Neurological: Yes: WNL, Alert, Oriented ...Motor Strength: WNL Psychiatric: Yes: WNL, Alert, Oriented. No: Agitated, Suicidal Ideation Labs: CBC, BMP 08/29/17 06:40 08/29/17 06:40 INR, PTT INR 1.14 (0.82-1.09) 08/29/17 06:40 Fibrinogen 288.0 mg/dL (238-498) D 08/29/17 06:40 - ....Imaging Other: Report Reviewed Assessment/Plan Patient is a 47-year-old female past medical history of breast cancer status post L lumpectomy, liver cirrhosis, hypertension, diabetes, anxiety and depression presents to the emergency department today with epigastric pain N/V and weight loss. Patient also states that she has had urinary frequency and urgency; abdomen CT and US c/w renal mass/cyst for EGD today per GI pt agreed aware of risks bleeding IV PPI IV antibiotics GI and surgery f/u; eval r/o renal mass ONC f/u s/p breast CA L lumpectomy, needs port placement try to taper pain meds as possible falls PFX DVT PFX teds, scds, no sq heparin b/o low PLT liver cirrhosis, also pt is fully ambulatory d/w pt and staff all the above, pt agreed with plan.
[2017-08-31 07:27] LABS: BASO % 0.6 % (0-2.0); HEMATOCRIT 34.1 % (32.4-45.2); HEMOGLOBIN 11.2 GM/dL (10.7-15.3); MCH 25.8 pg (25.7-33.7); MCHC 32.9 g/dl (32.0-36.0); MEAN CELL VOLUME 78.4 fl (80-96); MONO % 8.3 % (3.8-10.2); NEUT % 55.1 % (42.8-82.8); PLATELET COUNT 88 K/MM3 (134-434); RBC 4.35 M/mm3 (3.60-5.2); RDW 16.6 % (11.6-15.6); WHITE BLOOD COUNT 4.7 K/mm3 (4.0-10.0)
[2017-08-31 07:41] LABS: INR 1.12 (0.82-1.09); PROTHROMBIN TIME (PATIENT) 12.7 SEC (9.7-13.0)
[2017-08-31 07:53] LABS: CHLORIDE 107 mmol/L (98-107); POTASSIUM 3.9 mmol/L (3.5-5.1); SODIUM 143 mmol/L (136-145)
[2017-08-31 08:03] LABS: ALBUMIN 3.4 g/dl (3.4-5.0); ALK PHOS 133 U/L (45-117); ANION GAP 4 (8-16); BILIRUBIN,DIRECT < 0.2 mg/dL (0.0-0.2); BILIRUBIN,TOTAL 0.9 mg/dL (0.2-1.0); BLOOD UREA NITROGEN 7 mg/dL (7-18); CALCIUM 8.4 mg/dL (8.5-10.1); CO2 32 mmol/L (21-32); CREATININE 0.5 mg/dL (0.55-1.02); GLUCOSE,RANDOM 89 mg/dL (74-106); SGOT/AST 29 U/L (15-37); SGPT/ALT 26 U/L (12-78); TOT PROT 6.2 g/dl (6.4-8.2)
--- NOTE | 2017-08-31 09:41 | PROC ---
Endoscopy Procedure Endoscopy procedure completed. Please see scanned procedure report. MR abdomen results noted non-continuous, gastric fundal varices noted No evidence of esophageal varices Antral gastritis noted and biopsied Normal proximal duodenum Resume previous diet Follow up with [facility] hepatology, as previously scheduled, on September 07
[2017-08-31] MEDS ORDERED: DEXTROSE 5%-WATER 100 ML IVPB ONE (10:42)
[2017-08-31] MEDS: PANTOPRAZOLE SODIUM 40 MG VIAL IVPB SCH (10:47)
[2017-08-31] MEDS: NICOTINE 14 MG/24 HOURS TOPICAL PATCH TD SCH (10:48)
[2017-08-31] MEDS: CEFTRIAXONE 2 GM in DEXTROSE 5%-WATER 100 ML IVPB SCH (10:48)
[2017-08-31] MEDS: RANITIDINE HCL 150 MG TABLET (FP) PO SCH ×2 (10:50→21:30)
[2017-08-31] MEDS: LACTOBACILLUS ACIDOPHILUS 1 TABLET PO SCH (10:50)
[2017-08-31] MEDS: amLODIPine BESYLATE 2.5 MG TABLET (FP) PO SCH (10:51)
[2017-08-31] MEDS: LACTULOSE 20 GM/30 ML UDC (FOR ORAL USE ONLY) PO SCH ×2 (10:51→21:29)
[2017-08-31] MEDS: METOPROLOL TARTRATE 50 MG TABLET (FP) PO SCH ×2 (10:51→21:30)
[2017-08-31] MEDS: ESCITALOPRAM OXALATE 10 MG TABLET (FP) PO SCH ×2 (10:51→21:30)
--- NOTE | 2017-08-31 11:20 | PN ---
Progress Note (short form) - Note Progress Note: ID Ceftriaxone Selected Entries 08/31/17 08/31/17 09:45 10:15 Temperature 97.9 F Pulse Rate 62 Respiratory 13 Rate Blood Pressure 108/57 Microbiology 08/28/17 02:00 Urine - Urine Clean Catch Urine Culture - Final NO GROWTH OBTAINED Laboratory Tests 08/31/17 08/31/17 06:30 06:30 WBC 4.7 D Hgb 11.2 Hct 34.1 Plt Count 88 L BUN 7 Creatinine 0.5 L Assessment UTI difficulty tolerating po Culture neg Plan Macrobid 5 days Tabitha CARVAJAL
[2017-08-31] MEDS: NITROFURANTOIN MACROCRYSTAL 50 MG CAPSULE (FP) PO SCH ×3 (13:40→21:32)
--- NOTE | 2017-08-31 14:16 | PN ---
Progress Note (short form) - Note Progress Note: seen and examined +itching at the psoriatic plaques +scalp itching awaiting EGD chart reviewed MRI reviewed O/E: General: NAD HEENT: NCAT cor:RRR Lungs;CTA b/l Abd: NT LE: + multiple erythematous psoriatic plaques Last Vital Signs Temp Pulse Resp BP Pulse Ox 98.4 F 75 18 159/80 100 08/30/17 11:00 08/30/17 11:00 08/30/17 11:00 08/30/17 11:00 08/29/17 20:28 CBC, BMP 08/29/17 06:40 08/29/17 06:40 Current Medications Generic Name Dose Route Start Last Admin Trade Name Freq PRN Reason Stop Dose Admin Albuterol Sulfate 2 puff 08/27/17 20:00 Ventolin Hfa Inhaler - IH Q4H PRN WHEEZING Amlodipine Besylate 2.5 mg 08/28/17 10:00 08/30/17 13:27 Norvasc - PO Not Given DAILY ANY Escitalopram Oxalate 20 mg 08/27/17 22:00 08/30/17 13:15 Lexapro - PO 20 mg BID ANY Administration Fentanyl 2 patch 08/29/17 12:30 08/29/17 12:57 Duragesic 100mcg Patch - TD 2 patch Q72H ANY Administration Furosemide 40 mg 08/27/17 20:00 08/30/17 06:02 Lasix - PO Not Given BIDLASIX ANY Hydrocortisone 1 applic 08/30/17 11:00 08/30/17 12:40 Hytone 2.5% Lotion - TP 1 applic BID PRN Administration FOR ITCHING Hydrocortisone 1 applic 08/30/17 11:00 08/30/17 12:42 Hytone 1% Ointment - TP 1 applic BID PRN Administration FOR ITCHING Sodium Chloride 1,000 mls @ 100 mls/hr 08/27/17 20:00 08/30/17 08:56 Normal Saline - IV 100 mls/hr ASDIR ANY Administration Ceftriaxone Sodium 2 gm/ 100 mls @ 200 mls/hr 08/28/17 15:15 08/29/17 09:30 Dextrose IVPB 200 mls/hr DAILY ANY Administration Protocol Lactobacillus Acidophilus 2 tab 08/28/17 10:00 08/30/17 13:16 Bacid - PO 2 tab DAILY AYN Administration Lactulose 10 gm 08/27/17 22:00 08/30/17 13:27 Cephulac (Oral Use) PO Not Given BID ANY Lorazepam 1 mg 08/27/17 19:56 08/30/17 11:09 Ativan - PO 1 mg BID PRN Administration ANXIETY Metformin HCl 500 mg 08/27/17 20:00 08/30/17 06:02 Glucophage - PO Not Given BIDAC ANY Metoprolol Tartrate 100 mg 08/27/17 22:00 08/30/17 13:15 Lopressor - PO 100 mg BID ANY Administration Miscellaneous 1 each 08/29/17 12:17 08/29/17 13:01 Duragesic Patch Waste TD 1 each PRN PRN Administration PATCH WASTE Montelukast Sodium 10 mg 08/27/17 22:00 08/29/17 21:01 Singulair - PO 10 mg HS ANY Administration Morphine Sulfate 2 mg 08/27/17 19:59 08/29/17 23:54 Morphine Sulfate IVPUSH 2 mg Q4H PRN Administration PAIN LEVEL 7 - 10 Nicotine 14 mg 08/28/17 10:00 08/30/17 13:16 Nicoderm Patch - TD 14 mg DAILY ANY Administration Ondansetron HCl 8 mg 08/27/17 19:56 08/29/17 09:55 Zofran - PO 8 mg TID PRN Administration NAUSEA Pantoprazole Sodium 40 mg 08/29/17 10:00 08/29/17 09:32 Protonix Iv IVPB 40 mg DAILY ANY Administration Ranitidine HCl 150 mg 08/29/17 22:00 08/30/17 11:09 Zantac - PO 150 mg BID ANY Administration Sucralfate 1 gm 08/27/17 22:00 08/30/17 06:02 Carafate Oral Suspension - PO 1 gm TID ANY Administration Patient is a 39-year-old female recently diagnosed breast cancer status post L lumpectomy/ ALND on 08/07/17, T2, N0, ER-/NV-/Her2-2+/FISH pending. Also with cirrhosis/fatty liver/portal HTN/anxiety/depression/chronic opiate dependence/ psoriasis/psoriatic arthritis Patient comes in with RUQ pain. u/s suspicious for cholecystitis HIDA scan does not show cystic duct obstruction. UTI--macrobid s/p EGD for rheum c/s- further rx of psoriasis Will request for port on monday Based on above course/w/u and depending on HEr2 status on final path will plan adjuvant therapy with single agent taxol,weekly
--- NOTE | 2017-08-31 18:00 | CONS ---
DATE OF CONSULTATION: 08/31/2017 HISTORY OF PRESENT ILLNESS: The patient is a 47-year-old woman with past medical history of diabetes and psoriatic arthritis, diagnosed with breast cancer, yet to receive any chemotherapy, who also has a history of cervical laminectomy and presents with numbness and tingling in the upper and lower extremities. Patient apparently underwent recent electrodiagnostic studies of the upper extremities but now presents for lower extremity EMG for evaluation for neuropathy prior to receiving chemotherapy. Patient states she has been diabetic for some time and has had paresthesias over the last 6 months, with numbness/tingling, mainly in her feet. She has some chronic back pain but no radiating pain. Patient was seen by Neurology and referred for electrodiagnostic studies of the lower extremities. REVIEW OF PAST MEDICAL AND SURGICAL HISTORY: Migraine headaches, hypertension, COPD, gastritis, liver cirrhosis, breast cancer, psoriatic arthritis, diabetes, cervical fusion. SOCIAL HISTORY: Patient is a current tobacco user, smokes a pack of cigarettes per day. Lives alone in a co-op apartment. The patient is disabled. She can ambulate without assistive device but does not loss of balance. MEDICATIONS: Medications were reviewed. ALLERGIES: To NICKEL, TIMOLOL, TITANIUM. REVIEW OF SYSTEMS: No current lightheadedness. She does get headaches but no current headache. No dizziness. No blurry vision, double vision that is new. No nausea, vomiting, difficulty swallowing, difficulty chewing. No chest pain or shortness of breath. Again, she has paresthesias in her hands as well as in her lower extremities, chronic neck and back pain. No bowel or bladder incontinence. No fever or chills. REVIEW OF CURRENT LABORATORY DATA: CBC is normal. WBC is today 4.7, hemoglobin 11.2, platelet count, however, was low at 88,000. Chemistry showed decreased total protein of 6.2. Recent vitamin B12 was normal at 385, TSH normal, 2.01. Serum folate was normal at 5. Chemistry otherwise showed a normal BUN at 7, but a low creatinine of 0.5. The patient had an abdominal MRI on August 30, for the etiology of her liver cirrhosis, which did show psoriatic liver, portal hypertension, splenomegaly, dilated portal vein, and varices were also noted, stented gallbladder was noted, and abdominal aortic atherosclerotic disease, 50% to 70% stenosis in the distal abdominal aorta just proximal to bifurcation. EXAMINATION: General: The patient is seen both sitting, standing, and ambulating, in no acute distress. HEENT: She is normocephalic and atraumatic. Extraocular muscles appear intact. Neck: Supple. Extremities: She has no pitting edema, no calf tenderness. Skin: She has diffuse psoriatic rash throughout her upper and lower extremities, torso. No open or weeping wounds noted. Neuromuscular: She is awake, alert, oriented x3. Cranial nerves 2-12 grossly intact. She has diminished sensation distally in her fingertips as well as in the lower extremities to just proximal to the ankle. She has depressed ankle jerk reflexes, 1 to 2+ knee jerk reflexes. Her gait is fairly steady. Tandem walking, she loses her balance. Good motor power. For results of EMG and nerve conduction studies, please refer to EMG report for details. OVERALL IMPRESSION: 1. Axonal, mainly sensory, polyneuropathy. 2. Left distal peroneal neuropathy, likely due to history of left ankle trauma. 3. No electrodiagnostic evidence of lumbosacral radiculopathy or advanced motor neuropathy. 4. History of diabetes. 5. Liver cirrhosis. 6. Breast cancer. 7. History of cervical fusion. 8. Chronic back pain. 9. Thrombocytopenia. 10. Hypoproteinemia. 11. Elevated risk for deep vein thrombosis. 12. Psoriasis. PLAN, SUGGESTION: 1. Neurologic followup regarding etiology. 2. Consider medication at bedtime if painful. 3. Diabetic foot precaution. 4. Safety/fall precaution. 5. DVT prophylaxis, given her history of cancer and immobility. 6. Pain control. 7. Followup as needed. 8. Tight diabetic control. Thank you for this referral. HELEN SWAIN M.D. [facility]/[id number]
[2017-08-31] MEDS: SODIUM CHLORIDE 1,000 ML IV SCH (20:00)
[2017-08-31] MEDS: MONTELUKAST NA 10 MG TABLET PO SCH (21:30)
[2017-08-31] MEDS: morphine SULFATE 4 MG/ML VIAL IVPUSH PRN (21:35)
[2017-08-31] MEDS: LORazepam 1 MG TABLET PO PRN (21:35)
[2017-09-01] MEDS: SUCRALFATE 1 GM/10 ML UNIT DOSE CUPS PO SCH ×3 (06:09→21:10)
[2017-09-01] MEDS: FUROSEMIDE 40 MG TABLET (FP) PO SCH ×2 (06:09→14:39)
[2017-09-01] MEDS: metFORMIN HCL 500 MG TABLET (FP) PO SCH ×2 (06:09→17:48)
--- NOTE | 2017-09-01 06:11 | PN ---
Progress Note, Physician Chief Complaint: s/p EGD results d/w pt; gastritis, varices has abdominal pain and decreased po intake, nausea; can not take po PPI, po ATB , asked to switch to IV seen by rheumatology for psoriatic arthritis; dermatology NA in consult - Current Medication List Current Medications: Active Medications Albuterol Sulfate (Ventolin Hfa Inhaler -) 2 puff IH Q4H PRN PRN Reason: WHEEZING Amlodipine Besylate (Norvasc -) 2.5 mg PO DAILY [facility] Last Admin: 08/31/17 10:51 Dose: Not Given Escitalopram Oxalate (Lexapro -) 20 mg PO BID [facility] Last Admin: 08/31/17 21:30 Dose: Not Given Fentanyl (Duragesic 100mcg Patch -) 2 patch TD Q72H [facility] Last Admin: 08/29/17 12:57 Dose: 2 patch Furosemide (Lasix -) 40 mg PO BIDLASIX [facility] Last Admin: 09/01/17 06:09 Dose: Not Given Hydrocortisone (Hytone 2.5% Lotion -) 1 applic TP BID PRN PRN Reason: FOR ITCHING Last Admin: 08/30/17 12:40 Dose: 1 applic Hydrocortisone (Hytone 1% Ointment -) 1 applic TP BID PRN PRN Reason: FOR ITCHING Last Admin: 08/30/17 12:42 Dose: 1 applic Sodium Chloride (Normal Saline -) 1,000 mls @ 100 mls/hr IV ASDIR [facility] Last Admin: 08/31/17 20:00 Dose: Not Given Lactobacillus Acidophilus (Bacid -) 2 tab PO DAILY [facility] Last Admin: 08/31/17 10:50 Dose: 2 tab Lactulose (Cephulac (Oral Use)) 10 gm PO BID [facility] Last Admin: 08/31/17 21:29 Dose: Not Given Lorazepam (Ativan -) 1 mg PO BID PRN PRN Reason: ANXIETY Last Admin: 08/31/17 21:35 Dose: 1 mg Metformin HCl (Glucophage -) 500 mg PO BIDAC [facility] Last Admin: 09/01/17 06:09 Dose: Not Given Metoprolol Tartrate (Lopressor -) 100 mg PO BID [facility] Last Admin: 08/31/17 21:30 Dose: Not Given Miscellaneous (Duragesic Patch Waste) 1 each TD PRN PRN PRN Reason: PATCH WASTE Last Admin: 08/29/17 13:01 Dose: 1 each Montelukast Sodium (Singulair -) 10 mg PO HS [facility] Last Admin: 08/31/17 21:30 Dose: Not Given Morphine Sulfate (Morphine Sulfate) 2 mg IVPUSH Q4H PRN PRN Reason: PAIN LEVEL 7 - 10 Last Admin: 08/31/17 21:35 Dose: 2 mg Nicotine (Nicoderm Patch -) 14 mg TD DAILY [facility] Last Admin: 08/31/17 10:48 Dose: 14 mg Nitrofurantoin Macrocrystals (Macrodantin -) 50 mg PO QID [facility] Last Admin: 08/31/17 21:32 Dose: Not Given Ondansetron HCl (Zofran -) 8 mg PO TID PRN PRN Reason: NAUSEA Last Admin: 08/29/17 09:55 Dose: 8 mg Pantoprazole Sodium (Protonix Iv) 40 mg IVPB DAILY [facility] Last Admin: 08/31/17 10:47 Dose: 40 mg Ranitidine HCl (Zantac -) 150 mg PO BID [facility] Last Admin: 08/31/17 21:30 Dose: 150 mg Sucralfate (Carafate Oral Suspension -) 1 gm PO TID [facility] Last Admin: 09/01/17 06:09 Dose: 1 gm - Objective Vital Signs: Vital Signs Temperature 98.3 F 09/01/17 05:57 Pulse Rate 76 09/01/17 05:57 Respiratory Rate 20 09/01/17 05:57 Blood Pressure 155/86 09/01/17 05:57 O2 Sat by Pulse Oximetry (%) 98 08/31/17 21:00 Constitutional: Yes: No Distress, Calm Eyes: Yes: Conjunctiva Clear HENT: Yes: Atraumatic Neck: Yes: Supple Cardiovascular: Yes: Regular Rate and Rhythm Respiratory: Yes: CTA Bilaterally Gastrointestinal: Yes: Soft. No: Tenderness Genitourinary: No: CVA Tenderness - Left, CVA Tenderness - Right Musculoskeletal: No: Joint Stiffness, Joint Swelling Extremities: No: Cold, Cool, Cyanosis Edema: No Integumentary: Yes: Rash (legs psoriatic) Neurological: Yes: WNL, Alert, Oriented ...Motor Strength: WNL Psychiatric: Yes: WNL, Alert, Oriented, Suicidal Ideation. No: Agitated Labs: CBC, BMP 08/31/17 06:30 08/31/17 06:30 INR, PTT INR 1.12 (0.82-1.09) 08/31/17 06:30 Fibrinogen 288.0 mg/dL (238-498) D 08/29/17 06:40 - ....Imaging Other: Report Reviewed Assessment/Plan Patient is a 47-year-old female past medical history of breast cancer status post L lumpectomy, liver cirrhosis, hypertension, diabetes, anxiety and depression presents to the emergency department today with epigastric pain N/V and weight loss. Patient also states that she has had urinary frequency and urgency; abdomen CT and US c/w renal mass/cyst s/p EGD; nausea; switch to IV meds IV PPI IV antibiotics GI and surgery f/u; ONC f/u s/p breast CA L lumpectomy, needs port placement try to taper pain meds as possible falls PFX DVT PFX teds, scds, no sq heparin b/o low PLT liver cirrhosis, also pt is fully ambulatory d/w pt and staff all the above, pt agreed with plan.
[2017-09-01] MEDS ORDERED: CYANOCOBALAMIN (VITAMIN B-12) 1000 MCG/1 ML VIAL IM ONE (06:19)
--- NOTE | 2017-09-01 08:57 | CONSULT ---
Consult Consult Specialty:: Rheumatology - History of Present Illness History of Present Illness: 39-year-old female past medical history of psoriatic arthritis, breast cancer status post L lumpectomy, liver cirrhosis, hypertension, diabetes, anxiety and depression admitted with epigastric pain. The patient has history of psoriasis since age 7. Ten years ago she developed psoriatic arthritis and she has been treated with methotrexate, Remicade for 3 years, Enbrel, Humira and Cosentix. On May of this year she was diagnosed with breast cancer and Cosentix was discontinued. One month later she was diagnosed with liver cirrhosis, etiology not clear (the patient does not drink alcohol. At the present time she has significant pain mainly in hands and feet and progression of psoriatic plaques. - History Source History Provided By: Patient, Medical Record - Past Medical History RN PERITONEAL DIALYSIS: Yes: Migraine, Other Cardio/Vascular: Yes: HTN Pulmonary: Yes: COPD Gastrointestinal: Yes: Gastritis Hepatobiliary: Yes: Cirrhosis Renal/: Yes: UTI ...LMP: 08/26/03 ...: No Rheumatology: Yes: Other (Psoriatic arthritis) Endocrine: Yes: Diabetes Mellitus Additional Medical History: Chronic lymphadenopathy. Anxiety disorder. Narcotic addiction - Past Surgical History Past Surgical History: Yes: Laminectomy (C spine discectomy and fusion [facility] 2005, repeat fusion 2006, cervical hardware removed at [facility] 2009), Tonsillectomy, Upper Endoscopy - Alcohol/Substance Use Hx Alcohol Use: No History of Substance Use: reports: Prescription - Smoking History Smoking history: Current every day smoker Have you smoked in the past 12 months: Yes Aproximately how many cigarettes per day: 20 - Social History Usual Living Arrangement: Alone ADL: Independent Occupation: disability History of Recent Travel: No Home Medications - Allergies Allergies/Adverse Reactions: Allergies Allergy/AdvReac Type Severity Reaction Status Date / Time nickel Allergy Intermediate Rash Verified 08/27/17 10:26 timolol Allergy Swelling Verified 08/27/17 10:26 titanium Allergy Verified 08/27/17 10:26 - Home Medications Home Medications: Ambulatory Orders Albuterol Sulfate [Proair Hfa] 8.5 gm IH PRN 08/04/17 Cephalexin Monohydrate [Keflex -] 500 mg PO BID 08/04/17 Escitalopram Oxalate [Lexapro -] 20 mg PO BID 08/04/17 Esomeprazole Magnesium 40 mg PO DAILY 08/04/17 Furosemide [Lasix] 40 mg PO DAILY 08/04/17 Hydromorphone HCl [Dilaudid 4 mg/ml Syringe] 4 mg IJ PRN 08/04/17 Lactobacillus Acidophilus [Acidophilus] 1 tab PO BID 08/04/17 Lactulose 10 gm PO BID 08/04/17 Lorazepam [Ativan] 1 mg PO BID 08/04/17 Metformin HCl 500 mg PO BID 08/04/17 Metoprolol Tartrate 100 mg PO BID 08/04/17 Montelukast Sodium [Singulair] 10 mg PO HS 08/04/17 Ondansetron HCl [Zofran] 8 mg PO PRN PRN 08/04/17 Ranitidine [Zantac -] 150 mg PO BID 08/04/17 Sucralfate Oral Suspension [Carafate Oral Suspension -] 1 gm PO TID 08/04/17 Aldactone 100 mg PO HS 08/31/17 FENTANYL 100mcg PATCH [DURAGESIC 100mcg PATCH -] 2 each TD Q72H 08/31/17 Simethicone 80 mg PO PRN 08/31/17 Family Disease History - Family Disease History Family Disease History: CA: Father (lung), Mother (lung) Review of Systems - Review of Systems Constitutional: reports: Malaise Eyes: reports: No Symptoms HENT: reports: No Symptoms Neck: reports: No Symptoms Cardiovascular: reports: No Symptoms Respiratory: reports: No Symptoms Gastrointestinal: reports: Abdominal Pain Breasts: reports: No Symptoms Reported Musculoskeletal: reports: Other (See HPI) Endocrine: reports: No Symptoms Physical Exam Vital Signs: Vital Signs Temperature 98.4 F 09/01/17 08:00 Pulse Rate 80 09/01/17 08:00 Respiratory Rate 18 09/01/17 08:00 Blood Pressure 186/95 09/01/17 08:00 O2 Sat by Pulse Oximetry (%) 98 08/31/17 21:00 Constitutional: Yes: Moderate Distress Eyes: Yes: WNL HENT: Yes: WNL Neck: Yes: WNL Cardiovascular: Yes: WNL Respiratory: Yes: WNL Gastrointestinal: Yes: Tenderness, Epigastrium Musculoskeletal: Yes: Other (MCPs, and PIPs in both hands and both knees were swollen.) Integumentary: Yes: Other (Multiple psoriatic plaques in trunk and extremities) Labs: CBC, BMP 08/31/17 06:30 08/31/17 06:30 Laboratory Tests 08/27/17 08/30/17 08/31/17 11:20 06:30 06:30 Calcium 8.4 L Total Bilirubin 0.9 Direct Bilirubin < 0.2 AST 29 ALT 26 Alkaline Phosphatase 133 H Total Protein 6.2 L Albumin 3.4 TSH 2.01 Urine Color Yellow Urine Appearance Slcloudy Urine pH 6.0 Ur Specific [place] 1.008 Urine Protein Negative Urine Glucose (UA) Negative Urine Ketones Negative Urine Blood 2+ H Urine Nitrite Negative Urine Bilirubin Negative Urine Urobilinogen 2.0 H Ur Leukocyte Esterase 3+ H Urine WBC (Auto) 198 Urine RBC (Auto) 9 Problem List - Problems (1) Psoriatic arthritis Assessment/Plan: Psoriatic arthritis, Disease very active. The patient was well controled with Cosentyx and it is not known to have hepatotoxicity. The patient is not candidate for synthetic DMARDs, therefore she should be evaluated as outpatient to restart the medication. I will have to find out if it can be given in patient with cirrhosis. The patient has been treated by her prop worker. At the present time continue with same medications. Code(s): L40.50 - ARTHROPATHIC PSORIASIS, UNSPECIFIED
[2017-09-01] MEDS: RANITIDINE HCL 150 MG TABLET (FP) PO SCH ×2 (09:01→21:11)
[2017-09-01] MEDS: amLODIPine BESYLATE 2.5 MG TABLET (FP) PO SCH (09:01)
[2017-09-01] MEDS: PANTOPRAZOLE 40 MG TABLET (FP) PO SCH (09:01)
[2017-09-01] MEDS: ONDANSETRON 4 MG TABLET PO PRN (09:01)
[2017-09-01] MEDS ORDERED: LACTULOSE 20 GM/30 ML UDC (FOR ORAL USE ONLY) PO PRN (09:30)
[2017-09-01] MEDS ORDERED: PT OWN MED DRAWER 7, Y5N ONE (09:40)
[2017-09-01] MEDS ORDERED: DEXTROSE 5%-WATER - 50 ML IVPB ONE (09:42)
[2017-09-01] MEDS ORDERED: cefTRIAXone SODIUM 1 GM VIAL ONE (09:42)
[2017-09-01] MEDS: ESCITALOPRAM OXALATE 10 MG TABLET (FP) PO SCH ×3 (09:49→21:17)
[2017-09-01] MEDS: LACTOBACILLUS ACIDOPHILUS 1 TABLET PO SCH (09:49)
[2017-09-01] MEDS: SPIRONOLACTONE 25 MG TABLET (FP) PO SCH (09:49)
[2017-09-01] MEDS: NICOTINE 14 MG/24 HOURS TOPICAL PATCH TD SCH (09:50)
[2017-09-01] MEDS: METOPROLOL TARTRATE 50 MG TABLET (FP) PO SCH ×3 (09:50→21:16)
[2017-09-01] MEDS: CEFTRIAXONE 1 GM in DEXTROSE 5%-WATER - 50 ML IVPB SCH (09:50)
[2017-09-01] MEDS: fentaNYL 100mcg/hr PATCH.TD72 TD SCH (11:58)
[2017-09-01] MEDS: FENTANYL PATCH WASTE TD PRN (12:07)
--- NOTE | 2017-09-01 13:17 | PN ---
Progress Note, Physician History of Present Illness: No acute events overnight. Complains of generalized abdominal pain with nausea. No vomiting. - Current Medication List Current Medications: Active Medications Albuterol Sulfate (Ventolin Hfa Inhaler -) 2 puff IH Q4H PRN PRN Reason: WHEEZING Amlodipine Besylate (Norvasc -) 2.5 mg PO DAILY [facility] Last Admin: 09/01/17 09:01 Dose: 2.5 mg Escitalopram Oxalate (Lexapro -) 20 mg PO BID [facility] Last Admin: 09/01/17 09:49 Dose: 20 mg Fentanyl (Duragesic 100mcg Patch -) 2 patch TD Q72H [facility] Last Admin: 09/01/17 11:58 Dose: 2 patch Furosemide (Lasix -) 40 mg PO BIDLASIX [facility] Last Admin: 09/01/17 06:09 Dose: Not Given Hydrocortisone (Hytone 2.5% Lotion -) 1 applic TP BID PRN PRN Reason: FOR ITCHING Last Admin: 08/30/17 12:40 Dose: 1 applic Hydrocortisone (Hytone 1% Ointment -) 1 applic TP BID PRN PRN Reason: FOR ITCHING Last Admin: 08/30/17 12:42 Dose: 1 applic Ceftriaxone Sodium 1 gm/ (Dextrose) 50 mls @ 100 mls/hr IVPB DAILY [facility] Last Admin: 09/01/17 09:50 Dose: 100 mls/hr Lactobacillus Acidophilus (Bacid -) 2 tab PO DAILY [facility] Last Admin: 09/01/17 09:49 Dose: 2 tab Lactulose (Cephulac (Oral Use)) 10 gm PO BID PRN PRN Reason: CONSTIPATION Lorazepam (Ativan -) 1 mg PO BID PRN PRN Reason: ANXIETY Last Admin: 08/31/17 21:35 Dose: 1 mg Metformin HCl (Glucophage -) 500 mg PO BIDAC [facility] Last Admin: 09/01/17 06:09 Dose: Not Given Metoprolol Tartrate (Lopressor -) 100 mg PO BID [facility] Last Admin: 09/01/17 09:50 Dose: Not Given Miscellaneous (Duragesic Patch Waste) 1 each TD PRN PRN PRN Reason: PATCH WASTE Last Admin: 09/01/17 12:07 Dose: 1 each Montelukast Sodium (Singulair -) 10 mg PO HS [facility] Last Admin: 08/31/17 21:30 Dose: Not Given Morphine Sulfate (Morphine Sulfate) 2 mg IVPUSH Q4H PRN PRN Reason: PAIN LEVEL 7 - 10 Last Admin: 08/31/17 21:35 Dose: 2 mg Nicotine (Nicoderm Patch -) 14 mg TD DAILY [facility] Last Admin: 09/01/17 09:50 Dose: 14 mg Ondansetron HCl (Zofran -) 8 mg PO TID PRN PRN Reason: NAUSEA Last Admin: 09/01/17 09:01 Dose: 8 mg Pantoprazole Sodium (Protonix -) 40 mg PO DAILY [facility] Last Admin: 09/01/17 09:01 Dose: 40 mg Ranitidine HCl (Zantac -) 150 mg PO BID [facility] Last Admin: 09/01/17 09:01 Dose: 150 mg Spironolactone (Aldactone -) 100 mg PO DAILY [facility] Last Admin: 09/01/17 09:49 Dose: 100 mg Sucralfate (Carafate Oral Suspension -) 1 gm PO TID [facility] Last Admin: 09/01/17 06:09 Dose: 1 gm - Objective Vital Signs: Vital Signs Temperature 98.4 F 09/01/17 08:00 Pulse Rate 80 09/01/17 08:00 Respiratory Rate 18 09/01/17 08:00 Blood Pressure 186/95 09/01/17 08:00 O2 Sat by Pulse Oximetry (%) 98 08/31/17 21:00 Constitutional: Yes: Calm Eyes: Yes: Conjunctiva Clear HENT: Yes: Atraumatic Neck: Yes: Supple Cardiovascular: Yes: Regular Rate and Rhythm Respiratory: Yes: Regular Gastrointestinal: Yes: Soft. No: Distention, Melena, Rectal Bleeding, Vomiting Neurological: Yes: Alert, Oriented Labs: CBC, BMP 08/31/17 06:30 08/31/17 06:30 INR, PTT INR 1.12 (0.82-1.09) 08/31/17 06:30 Fibrinogen 288.0 mg/dL (238-498) D 08/29/17 06:40 Laboratory Last Values WBC 4.7 K/mm3 (4.0-10.0) D 08/31/17 06:30 RBC 4.35 M/mm3 (3.60-5.2) 08/31/17 06:30 Hgb 11.2 GM/dL (10.7-15.3) 08/31/17 06:30 Hct 34.1 % (32.4-45.2) 08/31/17 06:30 MCV 78.4 fl (80-96) L 08/31/17 06:30 MCH 25.8 pg (25.7-33.7) 08/31/17 06:30 MCHC 32.9 g/dl (32.0-36.0) 08/31/17 06:30 RDW 16.6 % (11.6-15.6) H 08/31/17 06:30 Plt Count 88 K/MM3 (134-434) L 08/31/17 06:30 MPV 10.0 fl (7.5-11.1) 08/31/17 06:30 Neutrophils % 55.1 % (42.8-82.8) D 08/31/17 06:30 Lymphocytes % 34.0 % (8-40) D 08/31/17 06:30 Monocytes % 8.3 % (3.8-10.2) 08/31/17 06:30 Eosinophils % 2.0 % (0-4.5) 08/31/17 06:30 Basophils % 0.6 % (0-2.0) 08/31/17 06:30 PT with INR 12.70 SEC (9.7-13.0) 08/31/17 06:30 INR 1.12 (0.82-1.09) 08/31/17 06:30 PTT (Actin FS) 32.1 SECONDS (26.9-34.4) 08/31/17 06:30 Fibrinogen 288.0 mg/dL (238-498) D 08/29/17 06:40 Sodium 143 mmol/L (136-145) 08/31/17 06:30 Potassium 3.9 mmol/L (3.5-5.1) 08/31/17 06:30 Chloride 107 mmol/L (98-107) 08/31/17 06:30 Carbon Dioxide 32 mmol/L (21-32) 08/31/17 06:30 Anion Gap 4 (8-16) L 08/31/17 06:30 BUN 7 mg/dL (7-18) 08/31/17 06:30 Creatinine 0.5 mg/dL (0.55-1.02) L 08/31/17 06:30 Creat Clearance w eGFR > 60 (>60) 08/31/17 06:30 POC Glucometer 103 UNITS (80-120) 09/01/17 06:11 Random Glucose 89 mg/dL (74-106) 08/31/17 06:30 Calcium 8.4 mg/dL (8.5-10.1) L 08/31/17 06:30 Total Bilirubin 0.9 mg/dL (0.2-1.0) 08/31/17 06:30 Direct Bilirubin < 0.2 mg/dL (0.0-0.2) 08/31/17 06:30 AST 29 U/L (15-37) 08/31/17 06:30 ALT 26 U/L (12-78) 08/31/17 06:30 Alkaline Phosphatase 133 U/L (45-117) H 08/31/17 06:30 Total Protein 6.2 g/dl (6.4-8.2) L 08/31/17 06:30 Albumin 3.4 g/dl (3.4-5.0) 08/31/17 06:30 Lipase 159 U/L (73-393) 08/27/17 11:45 Vitamin B12 385 pg/ml (180-914) 08/29/17 06:40 Serum Folate 5 ng/ml (3.1-17.5) 08/29/17 06:40 TSH 2.01 uIU/ml (0.358-3.74) 08/30/17 06:30 Urine Color Yellow 08/27/17 11:20 Urine Appearance Slcloudy 08/27/17 11:20 Urine pH 6.0 (5.0-8.0) 08/27/17 11:20 Ur Specific [place] 1.008 (1.001-1.035) 08/27/17 11:20 Urine Protein Negative (NEGATIVE) 08/27/17 11:20 Urine Glucose (UA) Negative (NEGATIVE) 08/27/17 11:20 Urine Ketones Negative (NEGATIVE) 08/27/17 11:20 Urine Blood 2+ (NEGATIVE) H 08/27/17 11:20 Urine Nitrite Negative (NEGATIVE) 08/27/17 11:20 Urine Bilirubin Negative (<2.0 mg/dL) 08/27/17 11:20 Urine Urobilinogen 2.0 mg/dL (0.2-1.0) H 08/27/17 11:20 Ur Leukocyte Esterase 3+ (NEGATIVE) H 08/27/17 11:20 Urine WBC (Auto) 198 /hpf (3-5) 08/27/17 11:20 Urine RBC (Auto) 9 /hpf (0-3) 08/27/17 11:20 Ur Epithelial Cells Rare /HPF (FEW) 08/27/17 11:20 Urine Bacteria Rare /hpf (NONE SEEN) 08/27/17 11:20 Hyaline Casts 1 /lpf 08/27/17 11:20 Urine Mucus Rare 08/27/17 11:20 Urine HCG, Qual Negative 08/27/17 11:20 Problem List - Problems (1) Biliary sludge determined by ultrasound Code(s): K83.8 - OTHER SPECIFIED DISEASES OF BILIARY TRACT (2) Gastric varices Code(s): I86.4 - GASTRIC VARICES (3) Portal hypertension Code(s): K76.6 - PORTAL HYPERTENSION (4) Abdominal pain Code(s): R10.9 - UNSPECIFIED ABDOMINAL PAIN Qualifiers: Abdominal location: unspecified location Qualified Code(s): R10.9 - Unspecified abdominal pain (5) Cirrhosis of liver Code(s): K74.60 - UNSPECIFIED CIRRHOSIS OF LIVER Assessment/Plan Isolated, gastric fundal varices. No evidence of portal hypertensive gastropathy, antral, or esophageal varices. Continue current care. Antiemetics when necessary. Avoid NSAIDs. Low salt diet. Follow up with hepatology as scheduled.
--- NOTE | 2017-09-01 15:26 | PATH ---
Surgical Pathology Report Patient Name: TONI GONZALEZ [facility]. Rec. #: [id number] /Age/Gender: 1970 (Age: 47) / F Account: [id number] Location: [address] [place] [address]/[facility] Taken: 08/31/2017 Received: 08/31/2017 Reported: 09/01/2017 Physicians: Suleman Saucedo M.D. Specimen(s) Received BX ANTRUM GASTRITIS Clinical History Nausea and abdominal pain Postoperative diagnosis: Fundal varices, antral gastritis Final Diagnosis GASTRIC ANTRUM, BIOPSY: GASTRIC MUCOSA WITH CHRONIC GASTRITIS. IMMUNOSTAIN IS NEGATIVE FOR H. PYLORI ORGANISMS. Electronically Signed Wilfrido Garrett M.D. Gross Description Received in formalin, labeled "biopsy antral gastritis" are 2 mcdermott, irregular portions of soft tissue measuring 0.3 and 0.4 cm. in greatest dimension. The specimens are submitted in toto in one cassette. /08/31/201708/31/2017
[2017-09-01] MEDS: morphine SULFATE 4 MG/ML VIAL IVPUSH PRN (15:32)
--- NOTE | 2017-09-01 15:40 | PN ---
Progress Note (short form) - Note Progress Note: Pathology results noted. Continue H2RB. Minimize use of NSAIDs Problem List - Problems (1) Biliary sludge determined by ultrasound Code(s): K83.8 - OTHER SPECIFIED DISEASES OF BILIARY TRACT (2) Gastric varices Code(s): I86.4 - GASTRIC VARICES (3) Portal hypertension Code(s): K76.6 - PORTAL HYPERTENSION (4) Abdominal pain Code(s): R10.9 - UNSPECIFIED ABDOMINAL PAIN Qualifiers: Abdominal location: unspecified location Qualified Code(s): R10.9 - Unspecified abdominal pain (5) Cirrhosis of liver Code(s): K74.60 - UNSPECIFIED CIRRHOSIS OF LIVER
--- NOTE | 2017-09-01 19:58 | PN ---
Progress Note (short form) - Note Progress Note: Patient seen and examined Still with some abdominal discomfort Last Vital Signs Temp Pulse Resp BP Pulse Ox 98.1 F 72 20 187/85 98 09/01/17 18:00 09/01/17 18:00 09/01/17 18:00 09/01/17 18:00 08/31/17 21:00 Cor: RSR, No murmurs, No gallops Lungs: Clear to P&A Abd: Soft, Normal bowel sounds, No organomegaly Ext:No significant edema Labs/Meds reviewed A/P 47 y/o patient with recently diagnosed breast cancer status post L lumpectomy/ ALND on 08/07/17, T2, N0, ER-/MT-/Her2-2+/FISH equivocaL. Also with cirrhosis/ fatty liver/portal HTN/anxiety/depression/chronic opiate dependence/psoriasis/ psoriatic arthritis Patient comes in with RUQ pain. u/s suspicious for cholecystitis HIDA scan does not show cystic duct obstruction. s/p EGD --Small gastric varix to start bentyl for abdominal discomfort for port placement monday. will check PT/PTT
[2017-09-01] MEDS: MONTELUKAST NA 10 MG TABLET PO SCH ×2 (21:11→21:21)
[2017-09-01] MEDS: DICYCLOMINE HCL 10 MG CAPSULE PO PRN (21:12)
[2017-09-01] MEDS: LORazepam 1 MG TABLET PO PRN (21:19)
[2017-09-02] MEDS: metFORMIN HCL 500 MG TABLET (FP) PO SCH ×2 (06:19→17:08)
[2017-09-02] MEDS: DICYCLOMINE HCL 10 MG CAPSULE PO PRN (06:19)
[2017-09-02] MEDS: FUROSEMIDE 40 MG TABLET (FP) PO SCH ×2 (06:19→14:21)
[2017-09-02] MEDS: SUCRALFATE 1 GM/10 ML UNIT DOSE CUPS PO SCH ×3 (06:19→21:07)
[2017-09-02] MEDS: morphine SULFATE 4 MG/ML VIAL IVPUSH PRN ×2 (06:25→21:17)
[2017-09-02 08:21] LABS: BASO % 0.7 % (0-2.0); EOS % 2.5 % (0-4.5); HEMATOCRIT 35.4 % (32.4-45.2); HEMOGLOBIN 11.9 GM/dL (10.7-15.3); LYMPH % 27.9 % (8-40); MCH 25.9 pg (25.7-33.7); MCHC 33.7 g/dl (32.0-36.0); MEAN PLT VOLUME 9.3 fl (7.5-11.1); MONO % 8.5 % (3.8-10.2); NEUT % 60.4 % (42.8-82.8); PLATELET COUNT 92 K/MM3 (134-434); RBC 4.59 M/mm3 (3.60-5.2); WHITE BLOOD COUNT 4.9 K/mm3 (4.0-10.0)
[2017-09-02 08:30] LABS: INR 1.06 (0.82-1.09)
[2017-09-02 08:33] LABS: ACTIVATED PTT 33.1 SECONDS (26.9-34.4)
[2017-09-02 08:37] LABS: ALBUMIN 3.5 g/dl (3.4-5.0); ANION GAP 4 (8-16); BLOOD UREA NITROGEN 4 mg/dL (7-18); CALCIUM 8.6 mg/dL (8.5-10.1); CHLORIDE 107 mmol/L (98-107); CO2 30 mmol/L (21-32); CREATININE 0.5 mg/dL (0.55-1.02); GLUCOSE,RANDOM 100 mg/dL (74-106); POTASSIUM 3.7 mmol/L (3.5-5.1); SGOT/AST 22 U/L (15-37); SGPT/ALT 18 U/L (12-78); SODIUM 141 mmol/L (136-145); TOT PROT 6.5 g/dl (6.4-8.2)
[2017-09-02 08:40] LABS: ALK PHOS 119 U/L (45-117)
[2017-09-02] MEDS ORDERED: cefTRIAXone SODIUM 1 GM VIAL ONE (09:25)
[2017-09-02] MEDS ORDERED: DEXTROSE 5%-WATER - 50 ML IVPB ONE (09:25)
[2017-09-02] MEDS: RANITIDINE HCL 150 MG TABLET (FP) PO SCH ×2 (09:32→21:07)
[2017-09-02] MEDS: LACTOBACILLUS ACIDOPHILUS 1 TABLET PO SCH (09:32)
[2017-09-02] MEDS: PANTOPRAZOLE 40 MG TABLET (FP) PO SCH (09:32)
[2017-09-02] MEDS: METOPROLOL TARTRATE 50 MG TABLET (FP) PO SCH ×2 (09:33→21:07)
[2017-09-02] MEDS: SPIRONOLACTONE 25 MG TABLET (FP) PO SCH (09:33)
[2017-09-02] MEDS: NICOTINE 14 MG/24 HOURS TOPICAL PATCH TD SCH (09:34)
[2017-09-02] MEDS: amLODIPine BESYLATE 2.5 MG TABLET (FP) PO SCH (09:34)
[2017-09-02] MEDS: ESCITALOPRAM OXALATE 10 MG TABLET (FP) PO SCH ×2 (09:34→21:07)
[2017-09-02] MEDS: CEFTRIAXONE 1 GM in DEXTROSE 5%-WATER - 50 ML IVPB SCH (09:37)
--- NOTE | 2017-09-02 09:42 | PN ---
Progress Note, Physician Chief Complaint: feels better no N/V no pain; for port on monday or monday - Current Medication List Current Medications: Active Medications Albuterol Sulfate (Ventolin Hfa Inhaler -) 2 puff IH Q4H PRN PRN Reason: WHEEZING Amlodipine Besylate (Norvasc -) 2.5 mg PO DAILY [facility] Last Admin: 09/02/17 09:34 Dose: Not Given Dicyclomine HCl (Bentyl -) 20 mg PO Q6H PRN PRN Reason: ABDOMINAL PAIN Last Admin: 09/02/17 06:19 Dose: 20 mg Escitalopram Oxalate (Lexapro -) 20 mg PO BID [facility] Last Admin: 09/02/17 09:34 Dose: 20 mg Fentanyl (Duragesic 100mcg Patch -) 2 patch TD Q72H [facility] Last Admin: 09/01/17 11:58 Dose: 2 patch Furosemide (Lasix -) 40 mg PO BIDLASIX [facility] Last Admin: 09/02/17 06:19 Dose: 40 mg Hydrocortisone (Hytone 2.5% Lotion -) 1 applic TP BID PRN PRN Reason: FOR ITCHING Last Admin: 08/30/17 12:40 Dose: 1 applic Hydrocortisone (Hytone 1% Ointment -) 1 applic TP BID PRN PRN Reason: FOR ITCHING Last Admin: 08/30/17 12:42 Dose: 1 applic Ceftriaxone Sodium 1 gm/ (Dextrose) 50 mls @ 100 mls/hr IVPB DAILY [facility] Last Admin: 09/02/17 09:37 Dose: 100 mls/hr Lactobacillus Acidophilus (Bacid -) 2 tab PO DAILY [facility] Last Admin: 09/02/17 09:32 Dose: 2 tab Lactulose (Cephulac (Oral Use)) 10 gm PO BID PRN PRN Reason: CONSTIPATION Lorazepam (Ativan -) 1 mg PO BID PRN PRN Reason: ANXIETY Last Admin: 09/01/17 21:19 Dose: 1 mg Metformin HCl (Glucophage -) 500 mg PO BIDAC [facility] Last Admin: 09/02/17 06:19 Dose: 500 mg Metoprolol Tartrate (Lopressor -) 100 mg PO BID [facility] Last Admin: 09/02/17 09:33 Dose: 100 mg Miscellaneous (Duragesic Patch Waste) 1 each TD PRN PRN PRN Reason: PATCH WASTE Last Admin: 09/01/17 12:07 Dose: 1 each Montelukast Sodium (Singulair -) 10 mg PO HS [facility] Last Admin: 09/01/17 21:21 Dose: 10 mg Morphine Sulfate (Morphine Sulfate) 2 mg IVPUSH Q4H PRN PRN Reason: PAIN LEVEL 7 - 10 Last Admin: 09/02/17 06:25 Dose: 2 mg Nicotine (Nicoderm Patch -) 14 mg TD DAILY [facility] Last Admin: 09/02/17 09:34 Dose: 14 mg Ondansetron HCl (Zofran -) 8 mg PO TID PRN PRN Reason: NAUSEA Last Admin: 09/01/17 09:01 Dose: 8 mg Pantoprazole Sodium (Protonix -) 40 mg PO DAILY [facility] Last Admin: 09/02/17 09:32 Dose: 40 mg Ranitidine HCl (Zantac -) 150 mg PO BID [facility] Last Admin: 09/02/17 09:32 Dose: 150 mg Spironolactone (Aldactone -) 100 mg PO DAILY [facility] Last Admin: 09/02/17 09:33 Dose: 100 mg Sucralfate (Carafate Oral Suspension -) 1 gm PO TID [facility] Last Admin: 09/02/17 06:19 Dose: 1 gm - Objective Vital Signs: Vital Signs Temperature 98.0 F 09/02/17 06:00 Pulse Rate 72 09/02/17 06:00 Respiratory Rate 20 09/01/17 20:59 Blood Pressure 134/78 09/02/17 06:00 O2 Sat by Pulse Oximetry (%) 98 09/01/17 20:25 Constitutional: Yes: No Distress, Calm Eyes: Yes: Conjunctiva Clear HENT: Yes: Atraumatic Neck: Yes: Supple Cardiovascular: Yes: Regular Rate and Rhythm Respiratory: Yes: CTA Bilaterally Gastrointestinal: Yes: Soft. No: Distention Genitourinary: No: CVA Tenderness - Left, CVA Tenderness - Right Musculoskeletal: No: Joint Stiffness, Joint Swelling Extremities: No: Calf Tenderness, Cold, Cool Edema: No Integumentary: Yes: Rash. No: Venous Stasis Changes Neurological: Yes: WNL, Alert, Oriented ...Motor Strength: WNL Psychiatric: Yes: WNL, Alert, Oriented. No: Agitated, Suicidal Ideation Labs: CBC, BMP 09/02/17 07:30 09/02/17 07:30 INR, PTT INR 1.06 (0.82-1.09) 09/02/17 07:30 Fibrinogen 288.0 mg/dL (238-498) D 08/29/17 06:40 - ....Imaging Other: Report Reviewed Assessment/Plan Patient is a 47-year-old female past medical history of breast cancer status post L lumpectomy, liver cirrhosis, hypertension, diabetes, anxiety and depression presents to the emergency department today with epigastric pain N/V and weight loss. Patient also states that she has had urinary frequency and urgency; abdomen CT and US c/w renal mass/cyst IV PPI IV antibiotics GI and surgery f/u; ONC f/u s/p breast CA L lumpectomy, for port placement try to taper pain meds as possible falls PFX DVT PFX teds, scds, no sq heparin b/o low PLT liver cirrhosis, also pt is fully ambulatory d/w pt and staff all the above, pt agreed with plan.
--- NOTE | 2017-09-02 11:57 | PN ---
Progress Note, Physician History of Present Illness: No acute events overnight. Bentyl appears to be effective - Current Medication List Current Medications: Active Medications Albuterol Sulfate (Ventolin Hfa Inhaler -) 2 puff IH Q4H PRN PRN Reason: WHEEZING Amlodipine Besylate (Norvasc -) 2.5 mg PO DAILY [facility] Last Admin: 09/02/17 09:34 Dose: Not Given Dicyclomine HCl (Bentyl -) 20 mg PO Q6H PRN PRN Reason: ABDOMINAL PAIN Last Admin: 09/02/17 06:19 Dose: 20 mg Escitalopram Oxalate (Lexapro -) 20 mg PO BID [facility] Last Admin: 09/02/17 09:34 Dose: 20 mg Fentanyl (Duragesic 100mcg Patch -) 2 patch TD Q72H [facility] Last Admin: 09/01/17 11:58 Dose: 2 patch Furosemide (Lasix -) 40 mg PO BIDLASIX [facility] Last Admin: 09/02/17 06:19 Dose: 40 mg Hydrocortisone (Hytone 2.5% Lotion -) 1 applic TP BID PRN PRN Reason: FOR ITCHING Last Admin: 08/30/17 12:40 Dose: 1 applic Hydrocortisone (Hytone 1% Ointment -) 1 applic TP BID PRN PRN Reason: FOR ITCHING Last Admin: 08/30/17 12:42 Dose: 1 applic Ceftriaxone Sodium 1 gm/ (Dextrose) 50 mls @ 100 mls/hr IVPB DAILY [facility] Last Admin: 09/02/17 09:37 Dose: 100 mls/hr Lactobacillus Acidophilus (Bacid -) 2 tab PO DAILY [facility] Last Admin: 09/02/17 09:32 Dose: 2 tab Lactulose (Cephulac (Oral Use)) 10 gm PO BID PRN PRN Reason: CONSTIPATION Lorazepam (Ativan -) 1 mg PO BID PRN PRN Reason: ANXIETY Last Admin: 09/01/17 21:19 Dose: 1 mg Metformin HCl (Glucophage -) 500 mg PO BIDAC [facility] Last Admin: 09/02/17 06:19 Dose: 500 mg Metoprolol Tartrate (Lopressor -) 100 mg PO BID [facility] Last Admin: 09/02/17 09:33 Dose: 100 mg Miscellaneous (Duragesic Patch Waste) 1 each TD PRN PRN PRN Reason: PATCH WASTE Last Admin: 09/01/17 12:07 Dose: 1 each Montelukast Sodium (Singulair -) 10 mg PO HS [facility] Last Admin: 09/01/17 21:21 Dose: 10 mg Morphine Sulfate (Morphine Sulfate) 2 mg IVPUSH Q4H PRN PRN Reason: PAIN LEVEL 7 - 10 Last Admin: 09/02/17 06:25 Dose: 2 mg Nicotine (Nicoderm Patch -) 14 mg TD DAILY [facility] Last Admin: 09/02/17 09:34 Dose: 14 mg Ondansetron HCl (Zofran -) 8 mg PO TID PRN PRN Reason: NAUSEA Last Admin: 09/01/17 09:01 Dose: 8 mg Pantoprazole Sodium (Protonix -) 40 mg PO DAILY [facility] Last Admin: 09/02/17 09:32 Dose: 40 mg Ranitidine HCl (Zantac -) 150 mg PO BID [facility] Last Admin: 09/02/17 09:32 Dose: 150 mg Spironolactone (Aldactone -) 100 mg PO DAILY [facility] Last Admin: 09/02/17 09:33 Dose: 100 mg Sucralfate (Carafate Oral Suspension -) 1 gm PO TID [facility] Last Admin: 09/02/17 06:19 Dose: 1 gm - Objective Vital Signs: Vital Signs Temperature 98.0 F 09/02/17 06:00 Pulse Rate 63 09/02/17 09:00 Respiratory Rate 18 09/02/17 09:00 Blood Pressure 136/74 09/02/17 09:00 O2 Sat by Pulse Oximetry (%) 98 09/01/17 20:25 Constitutional: Yes: Well Nourished, No Distress, Calm Eyes: Yes: Conjunctiva Clear Gastrointestinal: Yes: Soft, Tenderness. No: Distention, Melena, Vomiting Labs: CBC, BMP 09/02/17 07:30 09/02/17 07:30 INR, PTT INR 1.06 (0.82-1.09) 09/02/17 07:30 Fibrinogen 288.0 mg/dL (238-498) D 08/29/17 06:40 Laboratory Last Values WBC 4.9 K/mm3 (4.0-10.0) 09/02/17 07:30 RBC 4.59 M/mm3 (3.60-5.2) 09/02/17 07:30 Hgb 11.9 GM/dL (10.7-15.3) 09/02/17 07:30 Hct 35.4 % (32.4-45.2) 09/02/17 07:30 MCV 77.0 fl (80-96) L 09/02/17 07:30 MCH 25.9 pg (25.7-33.7) 09/02/17 07:30 MCHC 33.7 g/dl (32.0-36.0) 09/02/17 07:30 RDW 17.0 % (11.6-15.6) H 09/02/17 07:30 Plt Count 92 K/MM3 (134-434) L 09/02/17 07:30 MPV 9.3 fl (7.5-11.1) 09/02/17 07:30 Neutrophils % 60.4 % (42.8-82.8) 09/02/17 07:30 Lymphocytes % 27.9 % (8-40) 09/02/17 07:30 Monocytes % 8.5 % (3.8-10.2) 09/02/17 07:30 Eosinophils % 2.5 % (0-4.5) 09/02/17 07:30 Basophils % 0.7 % (0-2.0) 09/02/17 07:30 PT with INR 12.00 SEC (9.7-13.0) 09/02/17 07:30 INR 1.06 (0.82-1.09) 09/02/17 07:30 PTT (Actin FS) 33.1 SECONDS (26.9-34.4) 09/02/17 07:30 Fibrinogen 288.0 mg/dL (238-498) D 08/29/17 06:40 Sodium 141 mmol/L (136-145) 09/02/17 07:30 Potassium 3.7 mmol/L (3.5-5.1) 09/02/17 07:30 Chloride 107 mmol/L (98-107) 09/02/17 07:30 Carbon Dioxide 30 mmol/L (21-32) 09/02/17 07:30 Anion Gap 4 (8-16) L 09/02/17 07:30 BUN 4 mg/dL (7-18) L 09/02/17 07:30 Creatinine 0.5 mg/dL (0.55-1.02) L 09/02/17 07:30 Creat Clearance w eGFR > 60 (>60) 09/02/17 07:30 POC Glucometer 99 UNITS (80-120) 09/02/17 06:17 Random Glucose 100 mg/dL (74-106) 09/02/17 07:30 Calcium 8.6 mg/dL (8.5-10.1) 09/02/17 07:30 Total Bilirubin 1.0 mg/dL (0.2-1.0) 09/02/17 07:30 Direct Bilirubin < 0.2 mg/dL (0.0-0.2) 08/31/17 06:30 AST 22 U/L (15-37) 09/02/17 07:30 ALT 18 U/L (12-78) 09/02/17 07:30 Alkaline Phosphatase 119 U/L (45-117) H 09/02/17 07:30 Total Protein 6.5 g/dl (6.4-8.2) 09/02/17 07:30 Albumin 3.5 g/dl (3.4-5.0) 09/02/17 07:30 Lipase 159 U/L (73-393) 08/27/17 11:45 Vitamin B12 385 pg/ml (180-914) 08/29/17 06:40 Serum Folate 5 ng/ml (3.1-17.5) 08/29/17 06:40 TSH 2.01 uIU/ml (0.358-3.74) 08/30/17 06:30 Urine Color Yellow 08/27/17 11:20 Urine Appearance Slcloudy 08/27/17 11:20 Urine pH 6.0 (5.0-8.0) 08/27/17 11:20 Ur Specific [place] 1.008 (1.001-1.035) 08/27/17 11:20 Urine Protein Negative (NEGATIVE) 08/27/17 11:20 Urine Glucose (UA) Negative (NEGATIVE) 08/27/17 11:20 Urine Ketones Negative (NEGATIVE) 08/27/17 11:20 Urine Blood 2+ (NEGATIVE) H 08/27/17 11:20 Urine Nitrite Negative (NEGATIVE) 08/27/17 11:20 Urine Bilirubin Negative (<2.0 mg/dL) 08/27/17 11:20 Urine Urobilinogen 2.0 mg/dL (0.2-1.0) H 08/27/17 11:20 Ur Leukocyte Esterase 3+ (NEGATIVE) H 08/27/17 11:20 Urine WBC (Auto) 198 /hpf (3-5) 08/27/17 11:20 Urine RBC (Auto) 9 /hpf (0-3) 08/27/17 11:20 Ur Epithelial Cells Rare /HPF (FEW) 08/27/17 11:20 Urine Bacteria Rare /hpf (NONE SEEN) 08/27/17 11:20 Hyaline Casts 1 /lpf 08/27/17 11:20 Urine Mucus Rare 08/27/17 11:20 Urine HCG, Qual Negative 08/27/17 11:20 Blood Type B POSITIVE 09/01/17 20:30 Antibody Screen Negative 09/01/17 20:30 Problem List - Problems (1) Biliary sludge determined by ultrasound Code(s): K83.8 - OTHER SPECIFIED DISEASES OF BILIARY TRACT (2) Gastric varices Code(s): I86.4 - GASTRIC VARICES (3) Portal hypertension Code(s): K76.6 - PORTAL HYPERTENSION (4) Abdominal pain Code(s): R10.9 - UNSPECIFIED ABDOMINAL PAIN Qualifiers: Abdominal location: unspecified location Qualified Code(s): R10.9 - Unspecified abdominal pain (5) Cirrhosis of liver Code(s): K74.60 - UNSPECIFIED CIRRHOSIS OF LIVER Assessment/Plan Isolated, gastric fundal varix. No evidence of portal hypertensive gastropathy, antral, or esophageal varices. Continue current care. Antiemetics when necessary. Avoid NSAIDs. Low salt diet. Follow up with hepatology as scheduled.
[2017-09-02] MEDS: LORazepam 1 MG TABLET PO PRN (12:10)
--- NOTE | 2017-09-02 13:45 | PN ---
Progress Note (short form) - Note Progress Note: Vascular Surgery Pt for Port placement early next week - tu. Please optimize. Nate Leyva DO
[2017-09-02] MEDS: MONTELUKAST NA 10 MG TABLET PO SCH (21:07)
[2017-09-03] MEDS: SUCRALFATE 1 GM/10 ML UNIT DOSE CUPS PO SCH ×3 (05:43→21:38)
[2017-09-03] MEDS: FUROSEMIDE 40 MG TABLET (FP) PO SCH ×2 (05:43→13:43)
[2017-09-03] MEDS: metFORMIN HCL 500 MG TABLET (FP) PO SCH ×2 (06:00→17:26)
--- NOTE | 2017-09-03 07:33 | PN ---
Progress Note, Physician Chief Complaint: in bed NAD, nausea but ate OK no vomiting; no CP/SOB, EKG SR no acute changes and no changes from 07/03 CXR negative; O2 sat/RA 99% - Current Medication List Current Medications: Active Medications Albuterol Sulfate (Ventolin Hfa Inhaler -) 2 puff IH Q4H PRN PRN Reason: WHEEZING Amlodipine Besylate (Norvasc -) 2.5 mg PO DAILY [facility] Last Admin: 09/02/17 09:34 Dose: Not Given Dicyclomine HCl (Bentyl -) 20 mg PO Q6H PRN PRN Reason: ABDOMINAL PAIN Last Admin: 09/02/17 06:19 Dose: 20 mg Escitalopram Oxalate (Lexapro -) 20 mg PO BID [facility] Last Admin: 09/02/17 21:07 Dose: 20 mg Fentanyl (Duragesic 100mcg Patch -) 2 patch TD Q72H [facility] Last Admin: 09/01/17 11:58 Dose: 2 patch Furosemide (Lasix -) 40 mg PO BIDLASIX [facility] Last Admin: 09/03/17 05:43 Dose: Not Given Hydrocortisone (Hytone 2.5% Lotion -) 1 applic TP BID PRN PRN Reason: FOR ITCHING Last Admin: 08/30/17 12:40 Dose: 1 applic Hydrocortisone (Hytone 1% Ointment -) 1 applic TP BID PRN PRN Reason: FOR ITCHING Last Admin: 08/30/17 12:42 Dose: 1 applic Ceftriaxone Sodium 1 gm/ (Dextrose) 50 mls @ 100 mls/hr IVPB DAILY [facility] Last Admin: 09/02/17 09:37 Dose: 100 mls/hr Lactobacillus Acidophilus (Bacid -) 2 tab PO DAILY [facility] Last Admin: 09/02/17 09:32 Dose: 2 tab Lactulose (Cephulac (Oral Use)) 10 gm PO BID PRN PRN Reason: CONSTIPATION Lorazepam (Ativan -) 1 mg PO BID PRN PRN Reason: ANXIETY Last Admin: 09/02/17 12:10 Dose: 1 mg Metformin HCl (Glucophage -) 500 mg PO BIDAC [facility] Last Admin: 09/03/17 06:00 Dose: Not Given Metoprolol Tartrate (Lopressor -) 100 mg PO BID [facility] Last Admin: 09/02/17 21:07 Dose: 100 mg Miscellaneous (Duragesic Patch Waste) 1 each TD PRN PRN PRN Reason: PATCH WASTE Last Admin: 09/01/17 12:07 Dose: 1 each Montelukast Sodium (Singulair -) 10 mg PO HS [facility] Last Admin: 09/02/17 21:07 Dose: 10 mg Morphine Sulfate (Morphine Sulfate) 2 mg IVPUSH Q4H PRN PRN Reason: PAIN LEVEL 7 - 10 Last Admin: 09/02/17 21:17 Dose: 2 mg Nicotine (Nicoderm Patch -) 14 mg TD DAILY [facility] Last Admin: 09/02/17 09:34 Dose: 14 mg Ondansetron HCl (Zofran -) 8 mg PO TID PRN PRN Reason: NAUSEA Last Admin: 09/01/17 09:01 Dose: 8 mg Pantoprazole Sodium (Protonix -) 40 mg PO DAILY [facility] Last Admin: 09/02/17 09:32 Dose: 40 mg Ranitidine HCl (Zantac -) 150 mg PO BID [facility] Last Admin: 09/02/17 21:07 Dose: 150 mg Spironolactone (Aldactone -) 100 mg PO DAILY [facility] Last Admin: 09/02/17 09:33 Dose: 100 mg Sucralfate (Carafate Oral Suspension -) 1 gm PO TID [facility] Last Admin: 09/03/17 05:43 Dose: 1 gm - Objective Vital Signs: Vital Signs Temperature 98.1 F 09/03/17 06:00 Pulse Rate 58 L 09/03/17 06:00 Respiratory Rate 20 09/02/17 18:30 Blood Pressure 125/54 09/03/17 06:00 O2 Sat by Pulse Oximetry (%) 99 09/02/17 22:00 Constitutional: Yes: No Distress, Calm Eyes: Yes: Conjunctiva Clear HENT: Yes: Atraumatic Neck: Yes: Supple Cardiovascular: Yes: Regular Rate and Rhythm Respiratory: Yes: CTA Bilaterally Gastrointestinal: Yes: Soft. No: Distention Genitourinary: No: CVA Tenderness - Left, CVA Tenderness - Right Musculoskeletal: No: Joint Stiffness, Joint Swelling Extremities: No: Cold, Cool, Cyanosis Edema: No Integumentary: Yes: Rash (psoriasis). No: Venous Stasis Changes Neurological: Yes: WNL, Alert, Oriented ...Motor Strength: WNL Psychiatric: Yes: WNL, Alert, Oriented. No: Agitated, Suicidal Ideation Labs: CBC, BMP 09/02/17 07:30 09/02/17 07:30 INR, PTT INR 1.06 (0.82-1.09) 09/02/17 07:30 Fibrinogen 288.0 mg/dL (238-498) D 08/29/17 06:40 - ....Imaging Other: Report Reviewed Assessment/Plan Patient is a 47-year-old female past medical history of breast cancer status post L lumpectomy, liver cirrhosis, hypertension, diabetes, anxiety and depression presents to the emergency department today with epigastric pain N/V and weight loss. Patient also states that she has had urinary frequency and urgency; abdomen CT and US c/w renal mass/cyst ONC f/u s/p breast CA L lumpectomy, for port placement; EKG, CXR no acute changes; will check echo preop try to taper pain meds as possible falls PFX DVT PFX teds, scds, no sq heparin b/o low PLT liver cirrhosis, also pt is fully ambulatory d/w pt and staff all the above, pt agreed with plan.
[2017-09-03] MEDS ORDERED: cefTRIAXone SODIUM 1 GM VIAL ONE (09:02)
[2017-09-03] MEDS ORDERED: DEXTROSE 5%-WATER - 50 ML IVPB ONE (09:02)
[2017-09-03] MEDS ORDERED: PT OWN MED DRAWER 7, Y5N ONE (09:07)
[2017-09-03] MEDS: DICYCLOMINE HCL 10 MG CAPSULE PO PRN ×2 (09:08→22:59)
[2017-09-03] MEDS: SPIRONOLACTONE 25 MG TABLET (FP) PO SCH (09:09)
[2017-09-03] MEDS: ESCITALOPRAM OXALATE 10 MG TABLET (FP) PO SCH ×2 (09:09→21:37)
[2017-09-03] MEDS: LACTOBACILLUS ACIDOPHILUS 1 TABLET PO SCH (09:09)
[2017-09-03] MEDS: PANTOPRAZOLE 40 MG TABLET (FP) PO SCH (09:09)
[2017-09-03] MEDS: amLODIPine BESYLATE 2.5 MG TABLET (FP) PO SCH (09:09)
[2017-09-03] MEDS: CEFTRIAXONE 1 GM in DEXTROSE 5%-WATER - 50 ML IVPB SCH (09:10)
[2017-09-03] MEDS: NICOTINE 14 MG/24 HOURS TOPICAL PATCH TD SCH (09:10)
[2017-09-03] MEDS: RANITIDINE HCL 150 MG TABLET (FP) PO SCH ×2 (09:10→21:37)
[2017-09-03] MEDS: METOPROLOL TARTRATE 50 MG TABLET (FP) PO SCH ×2 (09:10→21:37)
[2017-09-03] MEDS: ONDANSETRON 4 MG TABLET PO PRN ×2 (13:34→21:38)
--- NOTE | 2017-09-03 13:48 | PN ---
Progress Note, Physician History of Present Illness: No acute events overnight. - Current Medication List Current Medications: Active Medications Albuterol Sulfate (Ventolin Hfa Inhaler -) 2 puff IH Q4H PRN PRN Reason: WHEEZING Amlodipine Besylate (Norvasc -) 2.5 mg PO DAILY [facility] Last Admin: 09/03/17 09:09 Dose: 2.5 mg Dicyclomine HCl (Bentyl -) 20 mg PO Q6H PRN PRN Reason: ABDOMINAL PAIN Last Admin: 09/03/17 09:08 Dose: 20 mg Escitalopram Oxalate (Lexapro -) 20 mg PO BID [facility] Last Admin: 09/03/17 09:09 Dose: 20 mg Fentanyl (Duragesic 100mcg Patch -) 2 patch TD Q72H [facility] Last Admin: 09/01/17 11:58 Dose: 2 patch Furosemide (Lasix -) 40 mg PO BIDLASIX [facility] Last Admin: 09/03/17 13:43 Dose: Not Given Hydrocortisone (Hytone 2.5% Lotion -) 1 applic TP BID PRN PRN Reason: FOR ITCHING Last Admin: 08/30/17 12:40 Dose: 1 applic Hydrocortisone (Hytone 1% Ointment -) 1 applic TP BID PRN PRN Reason: FOR ITCHING Last Admin: 08/30/17 12:42 Dose: 1 applic Lactobacillus Acidophilus (Bacid -) 2 tab PO DAILY [facility] Last Admin: 09/03/17 09:09 Dose: 2 tab Lactulose (Cephulac (Oral Use)) 10 gm PO BID PRN PRN Reason: CONSTIPATION Lorazepam (Ativan -) 1 mg PO BID PRN PRN Reason: ANXIETY Last Admin: 09/02/17 12:10 Dose: 1 mg Metformin HCl (Glucophage -) 500 mg PO BIDAC [facility] Last Admin: 09/03/17 06:00 Dose: Not Given Metoprolol Tartrate (Lopressor -) 100 mg PO BID [facility] Last Admin: 09/03/17 09:10 Dose: 100 mg Miscellaneous (Duragesic Patch Waste) 1 each TD PRN PRN PRN Reason: PATCH WASTE Last Admin: 09/01/17 12:07 Dose: 1 each Montelukast Sodium (Singulair -) 10 mg PO HS [facility] Last Admin: 09/02/17 21:07 Dose: 10 mg Morphine Sulfate (Morphine Sulfate) 2 mg IVPUSH Q4H PRN PRN Reason: PAIN LEVEL 7 - 10 Last Admin: 09/02/17 21:17 Dose: 2 mg Nicotine (Nicoderm Patch -) 14 mg TD DAILY [facility] Last Admin: 09/03/17 09:10 Dose: 14 mg Ondansetron HCl (Zofran -) 8 mg PO TID PRN PRN Reason: NAUSEA Last Admin: 09/03/17 13:34 Dose: 8 mg Pantoprazole Sodium (Protonix -) 40 mg PO DAILY [facility] Last Admin: 09/03/17 09:09 Dose: 40 mg Ranitidine HCl (Zantac -) 150 mg PO BID [facility] Last Admin: 09/03/17 09:10 Dose: 150 mg Spironolactone (Aldactone -) 100 mg PO DAILY [facility] Last Admin: 09/03/17 09:09 Dose: 100 mg Sucralfate (Carafate Oral Suspension -) 1 gm PO TID [facility] Last Admin: 09/03/17 13:34 Dose: 1 gm - Objective Vital Signs: Vital Signs Temperature 98.1 F 09/03/17 06:00 Pulse Rate 64 09/03/17 10:00 Respiratory Rate 18 09/03/17 10:00 Blood Pressure 158/74 09/03/17 10:00 O2 Sat by Pulse Oximetry (%) 99 09/02/17 22:00 Constitutional: Yes: Well Nourished, No Distress, Calm Labs: CBC, BMP 09/02/17 07:30 09/02/17 07:30 INR, PTT INR 1.06 (0.82-1.09) 09/02/17 07:30 Fibrinogen 288.0 mg/dL (238-498) D 08/29/17 06:40 Problem List - Problems (1) Biliary sludge determined by ultrasound Code(s): K83.8 - OTHER SPECIFIED DISEASES OF BILIARY TRACT (2) Gastric varices Code(s): I86.4 - GASTRIC VARICES (3) Portal hypertension Code(s): K76.6 - PORTAL HYPERTENSION (4) Abdominal pain Code(s): R10.9 - UNSPECIFIED ABDOMINAL PAIN Qualifiers: Abdominal location: unspecified location Qualified Code(s): R10.9 - Unspecified abdominal pain (5) Cirrhosis of liver Code(s): K74.60 - UNSPECIFIED CIRRHOSIS OF LIVER Assessment/Plan Continue current care. Avoid NSAIDs. Low salt diet. Follow up with hepatology as scheduled. Discussed with the patient
[2017-09-03] MEDS: MONTELUKAST NA 10 MG TABLET PO SCH (21:38)
[2017-09-03] MEDS: LORazepam 1 MG TABLET PO PRN (22:22)
[2017-09-04] MEDS: FUROSEMIDE 40 MG TABLET (FP) PO SCH ×3 (06:19→15:13)
[2017-09-04] MEDS: metFORMIN HCL 500 MG TABLET (FP) PO SCH ×3 (06:19→17:14)
[2017-09-04] MEDS: SUCRALFATE 1 GM/10 ML UNIT DOSE CUPS PO SCH ×3 (06:19→21:43)
--- NOTE | 2017-09-04 06:33 | PN ---
Progress Note, Physician Chief Complaint: no new c/o, occasional abdominal discomfort, no other c.o ate OK no N/V - Current Medication List Current Medications: Active Medications Albuterol Sulfate (Ventolin Hfa Inhaler -) 2 puff IH Q4H PRN PRN Reason: WHEEZING Amlodipine Besylate (Norvasc -) 2.5 mg PO DAILY [facility] Last Admin: 09/03/17 09:09 Dose: 2.5 mg Dicyclomine HCl (Bentyl -) 20 mg PO Q6H PRN PRN Reason: ABDOMINAL PAIN Last Admin: 09/03/17 22:59 Dose: 20 mg Escitalopram Oxalate (Lexapro -) 20 mg PO BID [facility] Last Admin: 09/03/17 21:37 Dose: 20 mg Fentanyl (Duragesic 100mcg Patch -) 2 patch TD Q72H [facility] [place] Last Admin: 09/01/17 11:58 Dose: 2 patch Furosemide (Lasix -) 40 mg PO BIDLASIX [facility] [place] Last Admin: 09/04/17 06:23 Dose: Not Given Hydrocortisone (Hytone 2.5% Lotion -) 1 applic TP BID PRN PRN Reason: FOR ITCHING Last Admin: 08/30/17 12:40 Dose: 1 applic Hydrocortisone (Hytone 1% Ointment -) 1 applic TP BID PRN PRN Reason: FOR ITCHING Last Admin: 08/30/17 12:42 Dose: 1 applic Lactobacillus Acidophilus (Bacid -) 2 tab PO DAILY [facility] [place] Last Admin: 09/03/17 09:09 Dose: 2 tab Lactulose (Cephulac (Oral Use)) 10 gm PO BID PRN PRN Reason: CONSTIPATION Lorazepam (Ativan -) 1 mg PO BID PRN PRN Reason: ANXIETY Last Admin: 09/03/17 22:22 Dose: 1 mg Metformin HCl (Glucophage -) 500 mg PO BIDAC [facility] [place] Last Admin: 09/04/17 06:25 Dose: Not Given Metoprolol Tartrate (Lopressor -) 100 mg PO BID [facility] Last Admin: 09/03/17 21:37 Dose: 100 mg Miscellaneous (Duragesic Patch Waste) 1 each TD PRN PRN PRN Reason: PATCH WASTE Last Admin: 09/01/17 12:07 Dose: 1 each Montelukast Sodium (Singulair -) 10 mg PO HS [facility] [place] Last Admin: 09/03/17 21:38 Dose: 10 mg Morphine Sulfate (Morphine Sulfate) 2 mg IVPUSH Q4H PRN PRN Reason: PAIN LEVEL 7 - 10 Last Admin: 09/02/17 21:17 Dose: 2 mg Nicotine (Nicoderm Patch -) 14 mg TD DAILY [facility] Last Admin: 09/03/17 09:10 Dose: 14 mg Ondansetron HCl (Zofran -) 8 mg PO TID PRN PRN Reason: NAUSEA Last Admin: 09/03/17 21:38 Dose: 8 mg Pantoprazole Sodium (Protonix -) 40 mg PO DAILY [facility] Last Admin: 09/03/17 09:09 Dose: 40 mg Ranitidine HCl (Zantac -) 150 mg PO BID [facility] Last Admin: 09/03/17 21:37 Dose: 150 mg Spironolactone (Aldactone -) 100 mg PO DAILY [facility] [place] Last Admin: 09/03/17 09:09 Dose: 100 mg Sucralfate (Carafate Oral Suspension -) 1 gm PO TID [facility] Last Admin: 09/04/17 06:19 Dose: 1 gm - Objective Vital Signs: Vital Signs Temperature 98.3 F 09/03/17 23:14 Pulse Rate 57 L 09/03/17 23:14 Respiratory Rate 18 09/03/17 23:14 Blood Pressure 143/88 09/03/17 23:14 O2 Sat by Pulse Oximetry (%) 99 09/03/17 21:00 Constitutional: Yes: No Distress, Calm Eyes: Yes: Conjunctiva Clear HENT: Yes: Atraumatic Neck: Yes: Supple Cardiovascular: Yes: Regular Rate and Rhythm Respiratory: Yes: CTA Bilaterally Gastrointestinal: Yes: Soft. No: Tenderness Genitourinary: No: CVA Tenderness - Left, CVA Tenderness - Right Musculoskeletal: No: Joint Stiffness, Joint Swelling Extremities: No: Cold, Cool, Cyanosis Edema: No Integumentary: Yes: Rash (psiriatic rash on her legs, fading). No: Venous Stasis Changes Neurological: Yes: WNL, Alert, Oriented ...Motor Strength: WNL Psychiatric: Yes: WNL, Alert, Oriented. No: Agitated, Suicidal Ideation Labs: CBC, BMP 09/02/17 07:30 09/02/17 07:30 INR, PTT INR 1.06 (0.82-1.09) 09/02/17 07:30 Fibrinogen 288.0 mg/dL (238-498) D 08/29/17 06:40 - ....Imaging Other: Report Reviewed Assessment/Plan Patient is a 47-year-old female past medical history of breast cancer status post L lumpectomy, liver cirrhosis, hypertension, diabetes, anxiety and depression admitted with epigastric pain N/V and weight loss. s/p UTI treated with IV ATB; renal complex cyst on MRI ONC f/u s/p breast CA L lumpectomy for port placement; EKG, CXR no acute changes; had echo and stress test with cardiology dr Fontaine in July 2017 WNL no ischemia, no new cardiac complaints; no absolute contraindications for the port placement; BP labile but well controlled; falls PFX DVT PFX teds, scds, no sq heparin b/o low PLT liver cirrhosis, also pt is fully ambulatory d/w pt and staff all the above, pt agreed with plan.
[2017-09-04 07:29] LABS: BASO % 0.6 % (0-2.0); EOS % 2.2 % (0-4.5); HEMATOCRIT 31.7 % (32.4-45.2); HEMOGLOBIN 10.4 GM/dL (10.7-15.3); LYMPH % 46.9 % (8-40); MCH 25.4 pg (25.7-33.7); MCHC 32.8 g/dl (32.0-36.0); MEAN CELL VOLUME 77.4 fl (80-96); MEAN PLT VOLUME 9.9 fl (7.5-11.1); MONO % 12.9 % (3.8-10.2); NEUT % 37.4 % (42.8-82.8); PLATELET COUNT 83 K/MM3 (134-434); RBC 4.09 M/mm3 (3.60-5.2); RDW 17.2 % (11.6-15.6); WHITE BLOOD COUNT 3.2 K/mm3 (4.0-10.0)
[2017-09-04 07:38] LABS: INR 1.12 (0.82-1.09); PROTHROMBIN TIME (PATIENT) 12.7 SEC (9.7-13.0)
[2017-09-04 07:41] LABS: ACTIVATED PTT 31.7 SECONDS (26.9-34.4)
[2017-09-04 07:52] LABS: ALBUMIN 3.1 g/dl (3.4-5.0); ALK PHOS 99 U/L (45-117); ANION GAP 4 (8-16); BILIRUBIN,TOTAL 0.6 mg/dL (0.2-1.0); BLOOD UREA NITROGEN 7 mg/dL (7-18); CALCIUM 8.6 mg/dL (8.5-10.1); CHLORIDE 108 mmol/L (98-107); CO2 33 mmol/L (21-32); CREATININE 0.6 mg/dL (0.55-1.02); GLUCOSE,RANDOM 89 mg/dL (74-106); POTASSIUM 3.7 mmol/L (3.5-5.1); SGOT/AST 18 U/L (15-37); SGPT/ALT 18 U/L (12-78); SODIUM 145 mmol/L (136-145); TOT PROT 5.8 g/dl (6.4-8.2)
[2017-09-04] MEDS: NICOTINE 14 MG/24 HOURS TOPICAL PATCH TD SCH (09:14)
[2017-09-04] MEDS: SPIRONOLACTONE 25 MG TABLET (FP) PO SCH (09:15)
[2017-09-04] MEDS: METOPROLOL TARTRATE 50 MG TABLET (FP) PO SCH ×2 (09:39→21:42)
[2017-09-04] MEDS: ESCITALOPRAM OXALATE 10 MG TABLET (FP) PO SCH ×2 (09:39→21:43)
[2017-09-04] MEDS: LACTOBACILLUS ACIDOPHILUS 1 TABLET PO SCH (09:39)
[2017-09-04] MEDS: amLODIPine BESYLATE 2.5 MG TABLET (FP) PO SCH (09:39)
[2017-09-04] MEDS: RANITIDINE HCL 150 MG TABLET (FP) PO SCH ×2 (09:40→21:43)
[2017-09-04] MEDS: PANTOPRAZOLE 40 MG TABLET (FP) PO SCH (09:44)
[2017-09-04] MEDS: fentaNYL 100mcg/hr PATCH.TD72 TD SCH (12:08)
[2017-09-04] MEDS: FENTANYL PATCH WASTE TD PRN (12:09)
--- NOTE | 2017-09-04 12:56 | SPA.PREOP ---
- PRE-OP NOTE Dx: Breast cancer Planned Procedure: Chemoport placement Surgeon: Nate Leyva Consent: To be obtained after surgeon explained all risks, benefits and alternatives. Opportunity for questions. Last Vital Signs Temp Pulse Resp BP Pulse Ox 98.8 F 62 18 144/79 99 09/04/17 09:00 09/04/17 09:00 09/04/17 09:00 09/04/17 09:00 09/04/17 09:00 Lab Results WBC 3.2 K/mm3 (4.0-10.0) L D 09/04/17 07:00 RBC 4.09 M/mm3 (3.60-5.2) 09/04/17 07:00 Hgb 10.4 GM/dL (10.7-15.3) L D 09/04/17 07:00 Hct 31.7 % (32.4-45.2) L 09/04/17 07:00 MCV 77.4 fl (80-96) L 09/04/17 07:00 MCHC 32.8 g/dl (32.0-36.0) 09/04/17 07:00 RDW 17.2 % (11.6-15.6) H 09/04/17 07:00 Plt Count 83 K/MM3 (134-434) L 09/04/17 07:00 Sodium 145 mmol/L (136-145) 09/04/17 07:00 Potassium 3.7 mmol/L (3.5-5.1) 09/04/17 07:00 Chloride 108 mmol/L (98-107) H 09/04/17 07:00 Carbon Dioxide 33 mmol/L (21-32) H 09/04/17 07:00 Anion Gap 4 (8-16) L 09/04/17 07:00 BUN 7 mg/dL (7-18) 09/04/17 07:00 Creatinine 0.6 mg/dL (0.55-1.02) 09/04/17 07:00 Random Glucose 89 mg/dL (74-106) 09/04/17 07:00 Calcium 8.6 mg/dL (8.5-10.1) 09/04/17 07:00 Blood Type B POSITIVE 09/01/17 20:30 Antibody Screen Negative 09/01/17 20:30 INR 1.12 (0.82-1.09) 09/04/17 07:00 - IMAGING Chest X-ray: Report Reviewed Problem List - Problems (1) Breast cancer Assessment/Plan: 1. Make NPO after midnight except po meds 2. GI/DVT PPX 3. Medical optimization / clearance Code(s): C50.919 - MALIGNANT NEOPLASM OF UNSP SITE OF UNSPECIFIED FEMALE BREAST
[2017-09-04] MEDS: DICYCLOMINE HCL 10 MG CAPSULE PO PRN (17:26)
[2017-09-04] MEDS: ONDANSETRON 4 MG TABLET PO PRN (17:26)
[2017-09-04] MEDS: morphine SULFATE 4 MG/ML VIAL IVPUSH PRN (17:36)
[2017-09-04] MEDS: MONTELUKAST NA 10 MG TABLET PO SCH (21:43)
--- NOTE | 2017-09-04 23:52 | PN ---
Progress Note (short form) - Note Progress Note: Patient seen and examined Still with some abdominal discomfort/nausea Last Vital Signs Temp Pulse Resp BP Pulse Ox 98.7 F 60 20 157/79 99 09/04/17 18:00 09/04/17 18:00 09/04/17 18:00 09/04/17 18:00 09/04/17 20:17 Cor: RSR, No murmurs, No gallops Lungs: Clear to P&A Abd: Soft, Normal bowel sounds Ext:No significant edema right breast --? seroma Labs/Meds reviewed A/P 47 y/o patient with recently diagnosed breast cancer status post L lumpectomy/ ALND on 08/07/17, T2, N0, ER-/[place]-/Her2-2+/FISH equivocaL. Also with cirrhosis/ fatty liver/portal HTN/anxiety/depression/chronic opiate dependence/psoriasis/ psoriatic arthritis Patient comes in with RUQ pain. u/s suspicious for cholecystitis HIDA scan does not show cystic duct obstruction. s/p EGD --Small gastric varix for portplacement platelets on hold if necessary
--- NOTE | 2017-09-05 00:30 | EKG ---
Test Reason : Blood Pressure : / mmHG Vent. Rate : 059 BPM Atrial Rate : 059 BPM P-R Int : 154 ms QRS Dur : 086 ms QT Int : 452 ms P-R-T Axes : 023 -06 007 degrees QTc Int : 447 ms SINUS BRADYCARDIA MINIMAL VOLTAGE CRITERIA FOR LVH, MAY BE NORMAL VARIANT ABNORMAL ECG WHEN COMPARED WITH ECG OF 03-JUL-2017 12:11, NO SIGNIFICANT CHANGE WAS FOUND Confirmed by ELIESER CARVAJAL, SHARON ([id number]) on 09/05/2017 12:30:10 AM Referred By: Vero ROBERTSON Confirmed By:SHARON MON MD
--- NOTE | 2017-09-05 06:19 | PN ---
Progress Note, Physician Chief Complaint: feels better awaiting port placement saw dr Fontaine in office 2 months ago and had echo and stress test before the breast surgery, cleared by cardio and pulm at that point, no new changes in her cardiac and pulm complaints and no EJG changes; no contraindications for the port placement - Current Medication List Current Medications: Active Medications Albuterol Sulfate (Ventolin Hfa Inhaler -) 2 puff IH Q4H PRN PRN Reason: WHEEZING Amlodipine Besylate (Norvasc -) 2.5 mg PO DAILY [facility] Last Admin: 09/04/17 09:39 Dose: 2.5 mg Dicyclomine HCl (Bentyl -) 20 mg PO Q6H PRN PRN Reason: ABDOMINAL PAIN Last Admin: 09/04/17 17:26 Dose: 20 mg Escitalopram Oxalate (Lexapro -) 20 mg PO BID [facility] Last Admin: 09/04/17 21:43 Dose: 20 mg Fentanyl (Duragesic 100mcg Patch -) 2 patch TD Q72H [facility] Last Admin: 09/04/17 12:08 Dose: 2 patch Furosemide (Lasix -) 40 mg PO BIDLASIX [facility] Last Admin: 09/04/17 15:13 Dose: Not Given Hydrocortisone (Hytone 2.5% Lotion -) 1 applic TP BID PRN PRN Reason: FOR ITCHING Last Admin: 08/30/17 12:40 Dose: 1 applic Hydrocortisone (Hytone 1% Ointment -) 1 applic TP BID PRN PRN Reason: FOR ITCHING Last Admin: 08/30/17 12:42 Dose: 1 applic Lactobacillus Acidophilus (Bacid -) 2 tab PO DAILY [facility] Last Admin: 09/04/17 09:39 Dose: 2 tab Lactulose (Cephulac (Oral Use)) 10 gm PO BID PRN PRN Reason: CONSTIPATION Lorazepam (Ativan -) 1 mg PO BID PRN PRN Reason: ANXIETY Last Admin: 09/03/17 22:22 Dose: 1 mg Metformin HCl (Glucophage -) 500 mg PO BIDAC [facility] Last Admin: 09/04/17 17:14 Dose: Not Given Metoprolol Tartrate (Lopressor -) 100 mg PO BID [facility] Last Admin: 09/04/17 21:42 Dose: 100 mg Miscellaneous (Duragesic Patch Waste) 1 each TD PRN PRN PRN Reason: PATCH WASTE Last Admin: 09/04/17 12:09 Dose: 1 each Montelukast Sodium (Singulair -) 10 mg PO HS [facility] Last Admin: 09/04/17 21:43 Dose: 10 mg Morphine Sulfate (Morphine Sulfate) 2 mg IVPUSH Q4H PRN PRN Reason: PAIN LEVEL 7 - 10 Last Admin: 09/04/17 17:36 Dose: 2 mg Nicotine (Nicoderm Patch -) 14 mg TD DAILY [facility] Last Admin: 09/04/17 09:14 Dose: 14 mg Ondansetron HCl (Zofran -) 8 mg PO TID PRN PRN Reason: NAUSEA Last Admin: 09/04/17 17:26 Dose: 8 mg Pantoprazole Sodium (Protonix -) 40 mg PO DAILY [facility] Last Admin: 09/04/17 09:44 Dose: 40 mg Ranitidine HCl (Zantac -) 150 mg PO BID [facility] Last Admin: 09/04/17 21:43 Dose: 150 mg Spironolactone (Aldactone -) 100 mg PO DAILY [facility] Last Admin: 09/04/17 09:15 Dose: 100 mg Sucralfate (Carafate Oral Suspension -) 1 gm PO TID [facility] Last Admin: 09/04/17 21:43 Dose: 1 gm - Objective Vital Signs: Vital Signs Temperature 98.7 F 09/04/17 18:00 Pulse Rate 60 09/04/17 18:00 Respiratory Rate 20 09/04/17 18:00 Blood Pressure 157/79 09/04/17 18:00 O2 Sat by Pulse Oximetry (%) 99 09/04/17 20:17 Constitutional: Yes: No Distress, Calm Eyes: Yes: Conjunctiva Clear HENT: Yes: Atraumatic Neck: Yes: Supple Cardiovascular: Yes: Regular Rate and Rhythm Respiratory: Yes: CTA Bilaterally Gastrointestinal: Yes: Soft. No: Distention Genitourinary: No: CVA Tenderness - Left, CVA Tenderness - Right Musculoskeletal: No: Joint Stiffness, Joint Swelling Extremities: No: Cold, Cool, Cyanosis Edema: No Integumentary: Yes: Rash (better) Neurological: Yes: WNL, Alert, Oriented ...Motor Strength: WNL Psychiatric: Yes: WNL, Alert, Oriented. No: Agitated, Suicidal Ideation Labs: CBC, BMP 09/04/17 07:00 09/04/17 07:00 INR, PTT INR 1.12 (0.82-1.09) 09/04/17 07:00 Fibrinogen 288.0 mg/dL (238-498) D 08/29/17 06:40 - ....Imaging Other: Report Reviewed Assessment/Plan Patient is a 47-year-old female past medical history of breast cancer status post L lumpectomy, liver cirrhosis, hypertension, diabetes, anxiety and depression admitted with epigastric pain N/V and weight loss. s/p UTI treated with IV ATB; renal complex cyst on MRI seen by , needs f/u outpt ONC f/u s/p breast CA L lumpectomy for port placement; EKG, CXR no acute changes; had echo and stress test with cardiology dr Fontaine in July 2017 WNL no ischemia, no new cardiac complaints; no absolute contraindications for the port placement; BP labile but well controlled; falls PFX DVT PFX teds, scds, no sq heparin b/o low PLT liver cirrhosis, also pt is fully ambulatory d/w pt and staff all the above, pt agreed with plan.
[2017-09-05] MEDS: SUCRALFATE 1 GM/10 ML UNIT DOSE CUPS PO SCH ×3 (06:20→21:58)
[2017-09-05] MEDS: metFORMIN HCL 500 MG TABLET (FP) PO SCH ×2 (06:20→16:52)
[2017-09-05] MEDS: FUROSEMIDE 40 MG TABLET (FP) PO SCH ×2 (06:20→15:17)
[2017-09-05 08:17] LABS: BASO % 0.6 % (0-2.0); HEMATOCRIT 36.5 % (32.4-45.2); HEMOGLOBIN 11.9 GM/dL (10.7-15.3); LYMPH % 31.2 % (8-40); MCH 25.2 pg (25.7-33.7); MCHC 32.6 g/dl (32.0-36.0); MEAN CELL VOLUME 77.4 fl (80-96); MEAN PLT VOLUME 9.5 fl (7.5-11.1); MONO % 8.7 % (3.8-10.2); NEUT % 57.5 % (42.8-82.8); PLATELET COUNT 98 K/MM3 (134-434); RBC 4.72 M/mm3 (3.60-5.2); RDW 17.1 % (11.6-15.6); WHITE BLOOD COUNT 4.7 K/mm3 (4.0-10.0)
[2017-09-05 08:29] LABS: INR 1.09 (0.82-1.09); PROTHROMBIN TIME (PATIENT) 12.3 SEC (9.7-13.0)
[2017-09-05 08:32] LABS: ACTIVATED PTT 31.5 SECONDS (26.9-34.4)
[2017-09-05 08:47] LABS: CHLORIDE 105 mmol/L (98-107); POTASSIUM 3.8 mmol/L (3.5-5.1); SODIUM 142 mmol/L (136-145)
[2017-09-05] MEDS: ONDANSETRON 4 MG TABLET PO PRN (09:44)
[2017-09-05] MEDS ORDERED: PT OWN MED DRAWER 7, Y5N ONE ×2 (09:45→22:05)
[2017-09-05] MEDS: DICYCLOMINE HCL 10 MG CAPSULE PO PRN ×2 (09:46→22:06)
[2017-09-05] MEDS: SPIRONOLACTONE 25 MG TABLET (FP) PO SCH (10:01)
[2017-09-05] MEDS: LACTOBACILLUS ACIDOPHILUS 1 TABLET PO SCH (10:01)
[2017-09-05] MEDS: METOPROLOL TARTRATE 50 MG TABLET (FP) PO SCH ×2 (10:02→21:58)
[2017-09-05] MEDS: NICOTINE 14 MG/24 HOURS TOPICAL PATCH TD SCH (10:02)
[2017-09-05] MEDS: ESCITALOPRAM OXALATE 10 MG TABLET (FP) PO SCH ×2 (10:02→21:58)
[2017-09-05 10:05] LABS: ALBUMIN 3.7 g/dl (3.4-5.0); ALK PHOS 115 U/L (45-117); ANION GAP 5 (8-16); BLOOD UREA NITROGEN 8 mg/dL (7-18); CALCIUM 9.2 mg/dL (8.5-10.1); CO2 32 mmol/L (21-32); GLUCOSE,RANDOM 96 mg/dL (74-106); SGPT/ALT 18 U/L (12-78)
[2017-09-05 10:08] LABS: BILIRUBIN,TOTAL 1.2 mg/dL (0.2-1.0); CREATININE 0.6 mg/dL (0.55-1.02); SGOT/AST 18 U/L (15-37); TOT PROT 6.6 g/dl (6.4-8.2)
[2017-09-05] MEDS: PANTOPRAZOLE 40 MG TABLET (FP) PO SCH (10:09)
[2017-09-05] MEDS: amLODIPine BESYLATE 2.5 MG TABLET (FP) PO SCH (10:09)
[2017-09-05] MEDS: RANITIDINE HCL 150 MG TABLET (FP) PO SCH ×2 (10:09→21:58)
[2017-09-05] MEDS: LORazepam 1 MG TABLET PO PRN (11:01)
--- NOTE | 2017-09-05 16:31 | PN ---
Progress Note (short form) - Note Progress Note: Last Vital Signs seen and examined. Feels about the same Temp Pulse Resp BP Pulse Ox 98.3 F 65 17 188/82 99 09/05/17 14:00 09/05/17 14:00 09/05/17 14:00 09/05/17 14:00 09/04/17 20:17 CBC, BMP 09/05/17 07:40 09/05/17 07:40 Current Medications Generic Name Dose Route Start Last Admin Trade Name Freq PRN Reason Stop Dose Admin Albuterol Sulfate 2 puff 08/27/17 20:00 Ventolin Hfa Inhaler - IH Q4H PRN WHEEZING Amlodipine Besylate 2.5 mg 08/28/17 10:00 09/05/17 10:09 Norvasc - PO Not Given DAILY ANY Dicyclomine HCl 20 mg 09/01/17 20:44 09/05/17 09:46 Bentyl - PO 20 mg Q6H PRN Administration ABDOMINAL PAIN Escitalopram Oxalate 20 mg 08/27/17 22:00 09/05/17 10:02 Lexapro - PO Not Given BID ANY Fentanyl 2 patch 08/29/17 12:30 09/04/17 12:08 Duragesic 100mcg Patch - TD 2 patch Q72H ANY Administration Furosemide 40 mg 08/27/17 20:00 09/05/17 15:17 Lasix - PO Not Given BIDLASIX ANY Hydrocortisone 1 applic 08/30/17 11:00 08/30/17 12:40 Hytone 2.5% Lotion - TP 1 applic BID PRN Administration FOR ITCHING Hydrocortisone 1 applic 08/30/17 11:00 08/30/17 12:42 Hytone 1% Ointment - TP 1 applic BID PRN Administration FOR ITCHING Lactobacillus Acidophilus 2 tab 08/28/17 10:00 09/05/17 10:01 Bacid - PO Not Given DAILY ANY Lactulose 10 gm 09/01/17 09:30 Cephulac (Oral Use) PO BID PRN CONSTIPATION Lorazepam 1 mg 08/27/17 19:56 09/05/17 11:01 Ativan - PO 1 mg BID PRN Administration ANXIETY Metformin HCl 500 mg 08/27/17 20:00 09/05/17 06:20 Glucophage - PO Not Given BIDAC ANY Metoprolol Tartrate 100 mg 08/27/17 22:00 09/05/17 10:02 Lopressor - PO Not Given BID [facility] Miscellaneous 1 each 08/29/17 12:17 09/04/17 12:09 Duragesic Patch Waste TD 1 each PRN PRN Administration PATCH WASTE Montelukast Sodium 10 mg 08/27/17 22:00 09/04/17 21:43 Singulair - PO 10 mg HS ANY Administration Morphine Sulfate 2 mg 08/27/17 19:59 09/04/17 17:36 Morphine Sulfate IVPUSH 2 mg Q4H PRN Administration PAIN LEVEL 7 - 10 Nicotine 14 mg 08/28/17 10:00 09/05/17 10:02 Nicoderm Patch - TD Not Given DAILY [facility] Ondansetron HCl 8 mg 08/27/17 19:56 09/05/17 09:44 Zofran - PO 8 mg TID PRN Administration NAUSEA Pantoprazole Sodium 40 mg 09/01/17 10:00 09/05/17 10:09 Protonix - PO Not Given DAILY [facility] Ranitidine HCl 150 mg 08/29/17 22:00 09/05/17 10:09 Zantac - PO Not Given BID [facility] Spironolactone 100 mg 09/01/17 10:00 09/05/17 10:01 Aldactone - PO Not Given DAILY [facility] Sucralfate 1 gm 08/27/17 22:00 09/05/17 15:17 Carafate Oral Suspension - PO Not Given TID [facility] 47 y/o patient with recently diagnosed breast cancer status post L lumpectomy/ ALND on 08/07/17, T2, N0, ER-/MN-/Her2-2+/FISH equivocaL. Also with cirrhosis/ fatty liver/portal HTN/anxiety/depression/chronic opiate dependence/psoriasis/ psoriatic arthritis Patient comes in with RUQ pain. u/s suspicious for cholecystitis HIDA scan does not show cystic duct obstruction. s/p EGD --Small gastric varix for portplacement platelets [id number] d.c planning for OP office follow-up
[2017-09-05] MEDS: morphine SULFATE 4 MG/ML VIAL IVPUSH PRN ×2 (17:09→21:56)
[2017-09-05] MEDS ORDERED: PROPOFOL 20 ML ONE (17:38)
[2017-09-05] MEDS ORDERED: MIDAZOLAM HCL 2 MG/2 ML SINGLE DOSE VIAL ONE ×3 (17:39→18:32)
[2017-09-05] MEDS ORDERED: LIDOCAINE HCL 1%, 10 MG/ML (20ML VIAL) ONE (17:50)
[2017-09-05] MEDS ORDERED: ceFAZolin SODIUM 1 GM VIAL IVPB ONE (18:35)
[2017-09-05] MEDS ORDERED: ceFAZolin SODIUM 1 GM VIAL ONE (18:36)
[2017-09-05] MEDS ORDERED: LIDOCAINE HCL 1%, 10 MG/ML (20ML VIAL) NR ONE (18:46)
[2017-09-05] MEDS ORDERED: ONDANSETRON 4 MG/2 ML VIAL IVPUSH PRN ×2 (19:23→20:01)
--- NOTE | 2017-09-05 19:29 | OP ---
Operative Note - Note: Operative Date: 09/05/17 Pre-Operative Diagnosis: Breast CA Operation: insertion of portacath Post-Operative Diagnosis: Same as Pre-op Surgeon: Nate Leyva Anesthesia: Fractional Estimated Blood Loss (mls): 30 Operative Report Dictated: Yes
[2017-09-05] MEDS ORDERED: LACTATED RINGERS SOLUTION 1,000 ML IV SCH ×2 (19:30→20:01)
[2017-09-05] MEDS ORDERED: FENTANYL PATCH WASTE TD PRN (20:01)
[2017-09-05] MEDS ORDERED: LORazepam 1 MG TABLET PO PRN (20:01)
[2017-09-05] MEDS ORDERED: HYDROCORTISONE 2.5% LOTION - 1 BOTTLE TP PRN (20:01)
[2017-09-05] MEDS ORDERED: ONDANSETRON 4 MG TABLET PO PRN (20:01)
[2017-09-05] MEDS ORDERED: HYDROCORTISONE 1% TOPICAL OINT 30 GM TUBE TP PRN (20:01)
[2017-09-05] MEDS ORDERED: FENTANYL PATCH WASTE MC PRN (20:01)
[2017-09-05] MEDS ORDERED: ALBUTEROL SO4 18 GM HFA INHALER IH PRN (20:04)
[2017-09-05] MEDS ORDERED: LACTULOSE 20 GM/30 ML UDC (FOR ORAL USE ONLY) PO PRN (20:10)
[2017-09-05] MEDS ORDERED: MONTELUKAST NA 10 MG TABLET PO SCH (22:00)
[2017-09-05 22:20] VITALS: BMI 25.7
[2017-09-06] MEDS: morphine SULFATE 4 MG/ML VIAL IVPUSH PRN (03:36)
[2017-09-06] MEDS ORDERED: PT OWN MED DRAWER 7, Y5N ONE ×5 (05:42→08:58)
[2017-09-06] MEDS ORDERED: FUROSEMIDE 40 MG TABLET (FP) PO SCH (06:00)
[2017-09-06] MEDS: SUCRALFATE 1 GM/10 ML UNIT DOSE CUPS PO SCH (06:40)
[2017-09-06] MEDS: DICYCLOMINE HCL 10 MG CAPSULE PO PRN (06:58)
[2017-09-06] MEDS ORDERED: metFORMIN HCL 500 MG TABLET (FP) PO SCH (07:00)
[2017-09-06 07:56] LABS: BASO % 0.4 % (0-2.0); EOS % 0.2 % (0-4.5); HEMATOCRIT 33.8 % (32.4-45.2); HEMOGLOBIN 11.1 GM/dL (10.7-15.3); LYMPH % 21.9 % (8-40); MCH 25.4 pg (25.7-33.7); MCHC 32.9 g/dl (32.0-36.0); MEAN CELL VOLUME 77.1 fl (80-96); MEAN PLT VOLUME 9.9 fl (7.5-11.1); NEUT % 68.5 % (42.8-82.8); PLATELET COUNT 92 K/MM3 (134-434); RBC 4.38 M/mm3 (3.60-5.2); RDW 17.3 % (11.6-15.6); WHITE BLOOD COUNT 3.9 K/mm3 (4.0-10.0)
[2017-09-06 08:19] LABS: CHLORIDE 105 mmol/L (98-107); SODIUM 141 mmol/L (136-145)
[2017-09-06 08:30] LABS: ALBUMIN 3.3 g/dl (3.4-5.0); ALK PHOS 109 U/L (45-117); ANION GAP 7 (8-16); BILIRUBIN,TOTAL 0.9 mg/dL (0.2-1.0); BLOOD UREA NITROGEN 8 mg/dL (7-18); CALCIUM 9.1 mg/dL (8.5-10.1); CO2 29 mmol/L (21-32); CREATININE 0.5 mg/dL (0.55-1.02); GLUCOSE,RANDOM 108 mg/dL (74-106); SGOT/AST 16 U/L (15-37); SGPT/ALT 16 U/L (12-78); TOT PROT 6.2 g/dl (6.4-8.2)
[2017-09-06 08:34] VITALS: TEMP 98.2
[2017-09-06] MEDS: RANITIDINE HCL 150 MG TABLET (FP) PO SCH (09:01)
[2017-09-06] MEDS: ESCITALOPRAM OXALATE 10 MG TABLET (FP) PO SCH (09:02)
--- NOTE | 2017-09-06 09:05 | DS ---
Physical Examination Vital Signs: Vital Signs Temperature 98.2 F 09/06/17 02:00 Pulse Rate 59 L 09/06/17 02:00 Respiratory Rate 20 09/06/17 02:00 Blood Pressure 151/77 09/06/17 02:00 O2 Sat by Pulse Oximetry (%) 98 09/05/17 22:55 Findings/Remarks: s/p R port placament tolerated well no C/o, no bleed no fever, cxr postop WNL; wants to go home Constitutional: Yes: No Distress, Calm Eyes: Yes: Conjunctiva Clear HENT: Yes: Atraumatic Neck: Yes: Supple Cardiovascular: Yes: Regular Rate and Rhythm Respiratory: Yes: CTA Bilaterally Gastrointestinal: Yes: Soft. No: Distention, Tenderness Renal/: No: CVA Tenderness - Left, CVA Tenderness - Right Musculoskeletal: No: Joint Stiffness, Joint Swelling Extremities: No: Cold, Cool, Cyanosis Edema: No Integumentary: Yes: Rash. No: Venous Stasis Changes Neurological: Yes: WNL, Alert, Oriented ...Motor Strength: WNL Psychiatric: Yes: WNL, Alert, Oriented. No: Agitated, Suicidal Ideation Labs: CBC, BMP 09/06/17 07:25 09/06/17 07:25 Discharge Summary Reason For Visit: EPIGASTRIC PAIN; ACUTE CHOLECYSTITIS Current Active Problems Acute cholecystitis (Acute) Biliary sludge determined by ultrasound (Acute) Epigastric pain (Acute) Gastric varices (Acute) Portal hypertension (Acute) UTI (urinary tract infection) (Acute) Procedures: Principal: Patient is a 47-year-old female past medical history of breast cancer status post L lumpectomy, liver cirrhosis, hypertension, diabetes , anxiety and depression admitted with epigastric pain no apetite, decreased po intake and weight loss. Patient also states that she has had urinary frequency and urgency and urinary tract infection at admission Other Procedures: HIDA negative; EGD c/w gastritis and vartices sec to portal HTN, liver cirrhosis; seen by GI, ONC;. found to have incidental renal cx xyst , seen by ;. also port placed for chemotx, per ONC, for breast CA Hospital Course: received IV ATB per ID;also bentyl and carafate per GI; improved with above tx; DC home and close f/u outpt as advised and d/w pt in detail, sc ripsat done and d/w pt; t time 45 min Condition: Guarded - Instructions Diet, Activity, Other Instructions: f/u PCP in 2-3 weeks GI f/u dr Saucedo and GI at [facility] renal US in 3 months f/u mass; see outpt in 1-2 weeks of DC r/o renal mass/ cyst/ cancer stop tobacco completely f/u ONC for chemotherapy pain managemnt f/u taper opiates to off psychiatry f/u outpt falls PFX Referrals: Josephine Groves [Primary Care Provider] - Mehrdad Kulkarni MD., MD [Staff Physician] - Darius Fontaine MD [Staff Physician] - Suleman Saucedo MD [Staff Physician] - Nate Leyva MD [Staff Physician] - Charles Sloan MD [Staff Physician] - Disposition: VNS/HOME HEALTH CARE - Home Medications Comprehensive Discharge Medication List: Ambulatory Orders Albuterol Sulfate [Proair Hfa] 8.5 gm IH PRN 08/04/17 Cephalexin Monohydrate [Keflex -] 500 mg PO BID 08/04/17 Escitalopram Oxalate [Lexapro -] 20 mg PO BID 08/04/17 Esomeprazole Magnesium 40 mg PO DAILY 08/04/17 Furosemide [Lasix] 40 mg PO DAILY 08/04/17 Hydromorphone HCl [Dilaudid 4 mg/ml Syringe] 4 mg IJ PRN 08/04/17 Lactobacillus Acidophilus [Acidophilus] 1 tab PO BID 08/04/17 Lactulose 10 gm PO BID 08/04/17 Lorazepam [Ativan] 1 mg PO BID 08/04/17 Metformin HCl 500 mg PO BID 08/04/17 Metoprolol Tartrate 100 mg PO BID 08/04/17 Montelukast Sodium [Singulair] 10 mg PO HS 08/04/17 Ondansetron HCl [Zofran] 8 mg PO PRN PRN 08/04/17 Ranitidine [Zantac -] 150 mg PO BID 08/04/17 Sucralfate Oral Suspension [Carafate Oral Suspension -] 1 gm PO TID 08/04/17 Aldactone 100 mg PO HS 08/31/17 FENTANYL 100mcg PATCH [DURAGESIC 100mcg PATCH -] 2 each TD Q72H 08/31/17 Simethicone 80 mg PO PRN 08/31/17
[2017-09-06] MEDS: METOPROLOL TARTRATE 50 MG TABLET (FP) PO SCH (09:10)
[2017-09-06 09:21] VITALS: BP 109/60; PULSE 65
[2017-09-06] MEDS ORDERED: LACTOBACILLUS ACIDOPHILUS 1 TABLET PO SCH (10:00)
[2017-09-06] MEDS ORDERED: SPIRONOLACTONE 25 MG TABLET (FP) PO SCH (10:00)
[2017-09-06] MEDS ORDERED: amLODIPine BESYLATE 2.5 MG TABLET (FP) PO SCH (10:00)
[2017-09-06] MEDS ORDERED: NICOTINE 14 MG/24 HOURS TOPICAL PATCH TD SCH (10:00)
[2017-09-06] MEDS ORDERED: PANTOPRAZOLE 40 MG TABLET (FP) PO SCH (10:00)
[2017-09-07] MEDS ORDERED: fentaNYL 100mcg/hr PATCH.TD72 TD SCH (12:30)
--- NOTE | 2017-09-20 14:45 | OP ---
DATE OF OPERATION: 09/05/2017 PREOPERATIVE DIAGNOSIS: Breast cancer with metastases. POSTOPERATIVE DIAGNOSIS: Breast cancer with metastases. PROCEDURE: Insertion of Port-A-Cath. SURGEON: Nate Bills DO ANESTHESIA: Fractional. BLOOD LOSS: 20 mL. INDICATIONS: The patient is a 47-year-old female with metastatic breast cancer. She needs a Port-A-Cath placement for chemotherapy infusion. The patient came into Ambulatory Surgery. The patient was consented for the procedure, understanding all risks, benefits and alternatives. DESCRIPTION OF PROCEDURE: She was then taken to the operating room. Once in the operative suite, she was placed on the operating table in a supine manner. The area of the right neck and chest was prepped and draped in a sterile surgical manner. Under ultrasound guidance we visualized the right internal jugular vein and 10 mL lidocaine 1% was injected. We then took our micropuncture needle and punctured the right internal jugular vein under ultrasound guidance. The micropuncture wire was inserted and the micropuncture sheath was inserted. We then went ahead and went below the clavicle to her chest and we were able to abdiel off using a skin marker where we would place the Port-A-Cath. We then injected 15 mL of lidocaine 1% in the area. We then went ahead and made a 5-cm incision using a 15 blade. Electrocautery was then used to control hemostasis. We went down through the subcutaneous tissue and created a pocket for our Port-A-Cath. Once the pocket was created, we went ahead and tunneled the Port-A-Cath up to our puncture site. We then went ahead and cut the Port-A-Cath site to size. We then went ahead and placed a 0.035 guidewire under fluoroscopy into the vein and we then placed our breakaway sheath over the guidewire into the vein and then cannula and guidewire were removed. The catheter was placed inside the sheath. The sheath was broken away as the catheter was placed in the vein. The neck of the Port-A-Cath was nice and smooth. The tip of the Port-A-Cath was in the SVC. We then took a Fenton needle and were able to draw back on the catheter and there was good flow. Heparinized saline was injected, 2000 unit of IV heparin was injected. We then went ahead and used 3-0 silk and we were able to anchor the Port-A-Cath to the subcutaneous tissue. Wound was then well irrigated. The 3-0 Vicryl was used and the subcutaneous tissue was approximated in interrupted manner and the skin was closed with 4-0 Biosyn in subcuticular running fashion. The puncture was closed with one 4-0 Biosyn stitch as well, 1 simple stitch. At this point the areas were then tried. Tegaderm and 4 x 4s were placed. The patient tolerated the procedure with no complication. The patient was transferred to PACU in stable condition where a chest x-ray will be obtained. NATE BILLS DO [id number]
== END 2017-09-06 09:47 | disposition home health service (06) | DRG 300 ==
LOC: JER 10:10 → JERBED 14:48 → J6S 17:46
PROVIDERS: ADMIT Internal Medicine; ATTEND Internal Medicine
PROC: 0DD68ZX Extraction of Stomach, Via Natural or Artificial Opening Endoscopic, Diagnostic (ICD-10-PCS; principal; 2017-08-31 09:00)
PROC: 0WH803Z Insertion of Infusion Device into Chest Wall, Open Approach (ICD-10-PCS; 2017-09-05)
DX: I86.4 Gastric varices (principal); N39.0 Urinary tract infection, site not specified; F11.20 Opioid dependence, uncomplicated; K76.6 Portal hypertension; K81.0 Acute cholecystitis; K29.70 Gastritis, unspecified, without bleeding; K74.60 Unspecified cirrhosis of liver; C50.912 Malignant neoplasm of unspecified site of left female breast; I10 Essential (primary) hypertension; L40.9 Psoriasis, unspecified; L40.50 Arthropathic psoriasis, unspecified; N28.89 Other specified disorders of kidney and ureter; K29.50 Unspecified chronic gastritis without bleeding
CPT/HCPCS: 36415; 71045-TC-FY; 71046-TC-FY; 74183-TC; 76000-TC-FY; 76705-TC; 78226-TC; 80053; 81003; 81015; 82248; 82607; 82746; 82962; 83690; 84443; 84703; 85025; 85384; 85610; 85730; 86850; 86900; 86901; 87086; 93005; 93010; 94760; 95860-TC; 99283-25; A9537; J1644; J7030

== ENCOUNTER 2017-09-09 13:35 | Emergency (ER) | payer OTHER ==
[2017-09-09 13:41] VITALS: BMI 24.0
--- NOTE | 2017-09-09 14:10 | PDOC ---
History of Present Illness - General History Source: Patient, Family, Old Records Exam Limitations: No Limitations - History of Present Illness Initial Comments: 09/09/17 14:53 The patient is a 47-year-old female past medical history of breast cancer status post left lumpectomy, liver cirrhosis, hypertension, diabetes, anxiety and depression presents to the emergency department today with epigastric pain and diarrhea for 3 days. She reports that since being discharged from this hospital she has not eaten or drank. She further reports that she has been non- compliant with all of her medications because she feels like they are making her symptoms worse. She describes her pain as midepigastric radiating laterally. Since being discharged she has had 2-3 episode of loose diarrhea daily. She denies any episodes of vomiting. <Reece Zamora - Last Filed: 09/09/17 14:59> <Lucrecia Bonilla - Last Filed: 09/10/17 07:06> - General Chief Complaint: Pain Stated Complaint: CA PT ABD PAIN, WEAKNESS Time Seen by Provider: 09/09/17 14:06 Past History <Reece Zamora - Last Filed: 09/09/17 14:59> - Past Medical History Asthma: Yes Cancer: Yes (Breast cancer left) Cardiac Disorders: Yes (Peripheral Artery Disease) COPD: No DVT: No Diabetes: Yes HTN: Yes Hypercholesterolemia: Yes Liver Disease: Yes (fatty liver, cirrhosis) Psychiatric Problems: Yes (depression, anxiety) - Surgical History Orthopedic Surgery: Yes (3 neck sx's (2005, 2006, 2009)) - Immunization History Immunization Up to Date: No - Suicide/Smoking/Psychosocial Hx Smoking History: Current every day smoker Have you smoked in the past 12 months: Yes Number of Cigarettes Smoked Daily: 20 Information on smoking cessation initiated: Yes 'Breaking Loose' booklet given: 09/09/17 Hx Alcohol Use: No Drug/Substance Use Hx: No Substance Use Type: None Hx Substance Use Treatment: No <Lucrecia Bonilla - Last Filed: 09/10/17 07:06> - Past Medical History Allergies/Adverse Reactions: Allergies Allergy/AdvReac Type Severity Reaction Status Date / Time nickel Allergy Intermediate Rash Verified 09/09/17 13:37 timolol Allergy Swelling Verified 09/09/17 13:37 titanium Allergy Verified 09/09/17 13:37 Home Medications: Ambulatory Orders Albuterol Sulfate [Proair Hfa] 8.5 gm IH PRN 08/04/17 Escitalopram Oxalate [Lexapro -] 20 mg PO BID 08/04/17 Esomeprazole Magnesium 40 mg PO DAILY 08/04/17 Furosemide [Lasix] 40 mg PO DAILY 08/04/17 Lactobacillus Acidophilus [Acidophilus] 1 tab PO BID 08/04/17 Lactulose 10 gm PO BID 08/04/17 Lorazepam [Ativan] 1 mg PO BID 08/04/17 Metformin HCl 500 mg PO BID 08/04/17 Metoprolol Tartrate 100 mg PO BID 08/04/17 Montelukast Sodium [Singulair] 10 mg PO HS 08/04/17 Ondansetron HCl [Zofran] 8 mg PO PRN PRN 08/04/17 Ranitidine [Zantac -] 150 mg PO BID 08/04/17 FENTANYL 100mcg PATCH [DURAGESIC 100mcg PATCH -] 2 each TD Q72H 08/31/17 Simethicone 80 mg PO PRN 08/31/17 Dicyclomine HCl [Bentyl -] 20 mg PO Q6H PRN #90 capsule 09/06/17 Hydrocortisone 1% Ointment [Hytone 1% Ointment -] 1 applic TP Q12H PRN tube Hydrocortisone 2.5% Lotion [Hytone 2.5% Lotion -] 1 applic TP Q12H PRN bottle 09/06/17 Nicotine Patch [Nicoderm Patch -] 14 mg TD DAILY patch 09/06/17 Spironolactone [Aldactone -] 100 mg PO DAILY #30 tablet 09/06/17 Sucralfate Oral Suspension [Carafate Oral Suspension -] 1 gm PO TID 30 Days ml 09/06/17 Review of Systems - Review of Systems Able to Perform ROS?: Yes Comments:: 09/09/17 14:53 GENERAL/CONSTITUTIONAL: No fever or chills. No weakness. HEAD, EYES, EARS, NOSE AND THROAT: No change in vision. No ear pain or discharge. No sore throat. GASTROINTESTINAL: (+) Abdominal pain, diarrhea. No nausea, vomiting, or constipation. GENITOURINARY: No dysuria, frequency, or change in urination. CARDIOVASCULAR: No chest pain or shortness of breath. RESPIRATORY: No cough, wheezing, or hemoptysis. MUSCULOSKELETAL: No joint or muscle swelling or pain. No neck or back pain. SKIN: No rash NEUROLOGIC: No headache, vertigo, loss of consciousness, or change in strength/ sensation. ENDOCRINE: No increased thirst. No abnormal weight change. HEMATOLOGIC/LYMPHATIC: No anemia, easy bleeding, or history of blood clots. ALLERGIC/IMMUNOLOGIC: No hives or skin allergy. <Reece Zamora - Last Filed: 09/09/17 14:59> *Physical Exam - Vital Signs Last Vital Signs Temp Pulse Resp BP Pulse Ox 98.6 F 100 H 18 167/97 100 09/09/17 13:37 09/09/17 13:37 09/09/17 13:37 09/09/17 13:37 09/09/17 13:37 - Physical Exam Comments: 09/09/17 14:53 GENERAL: Awake, alert, and fully oriented, in no acute distress HEAD: No signs of trauma EYES: PERRLA, EOMI, sclera anicteric, conjunctiva clear ENT:+ Auricles normal inspection, hearing grossly normal, nares patent, oropharynx clear without exudates. Dry mucosa/mucus membranes, dry cracked tongue, dry lips NECK: Normal ROM, supple, no lymphadenopathy, JVD, or masses LUNGS: Breath sounds equal, clear to auscultation bilaterally. No wheezes, and no crackles HEART: +Tachycardic, regular rhythm, normal S1 and S2, no murmurs, rubs or gallops ABDOMEN: +RUQ and epigastric pain on palpation, guarding. Soft, nontender, normoactive bowel sounds. No guarding, no rebound. No masses EXTREMITIES: Normal range of motion, no edema. No clubbing or cyanosis. No cords, erythema, or tenderness NEUROLOGICAL: Cranial nerves II through XII grossly intact. Normal speech, normal gait SKIN: + Plaque psoriasis. Warm, Dry, normal turgor. <Reece Zamora - Last Filed: 09/09/17 14:59> - Vital Signs Last Vital Signs Temp Pulse Resp BP Pulse Ox 98.6 F 100 H 18 167/97 100 09/09/17 13:37 09/09/17 13:37 09/09/17 13:37 09/09/17 13:37 09/09/17 13:37 <Lucrecia Bonilla - Last Filed: 09/10/17 07:06> Heart Score/ECG Review - ECG Impressions Comment:: 09/09/17 14:59 Sinus at 81 normal axis Q wave anterior lead T wave inversions V2, V3, and lead 3 <Reece Zamora - Last Filed: 09/09/17 14:59> ED Treatment Course - LABORATORY CBC & Chemistry Diagram: 09/09/17 14:30 09/09/17 14:30 <Reece Zamora - Last Filed: 09/09/17 14:59> - LABORATORY CBC & Chemistry Diagram: 09/09/17 14:30 09/09/17 14:30 <Lucrecia Bonilla - Last Filed: 09/10/17 07:06> Medical Decision Making - Medical Decision Making 09/09/17 14:20 a/p: 47yo female with recent dx of breast ca s/p port placement and recent acute kiko/uti -discharged a few days ago after a 10 day hospitalization for uti/acute kiko -continuous diarrhea -still with acute epigastric/ruq pain -has not been taking her meds -has on fentanyl patches 09/09/17 14:23 will repeat labs, ekg, cxr will obtain ua will monitor and reassess 09/10/17 07:06 pt signed out to the oncoming ED physician pending labs and ultrasound <Lucrecia Bonilla - Last Filed: 09/10/17 07:06> *DC/Admit/Observation/Transfer - Attestations Scribe Attestion: 09/09/17 14:54 Documentation prepared by Reece Zamora, acting as medical pathology teacher for Lucrecia Bonilla DO <Reece Zamora - Last Filed: 09/09/17 14:59> - Attestations Physician Attestion: 09/10/17 07:06 I, Dr. Lucrecia Bonilla DO, attest that this document has been prepared under my direction and personally reviewed by me in its entirety. I further attest, that it accurately reflects all work, treatment, procedures and medical decision -making performed by me. <Lucrecia Bonilla - Last Filed: 09/10/17 07:06> Diagnosis at time of Disposition: Epigastric pain Cholelithiasis Qualifiers: Cholelithiasis location: gallbladder Cholecystitis presence: without cholecystitis Biliary obstruction: without biliary obstruction Qualified Code(s) : K80.20 - Calculus of gallbladder without cholecystitis without obstruction - Discharge Dispostion Disposition: HOME Condition at time of disposition: Improved - Referrals Referrals: Josephine Groves [Primary Care Provider] - Suleman Saucedo MD [Staff Physician] - - Patient Instructions Printed Discharge Instructions: DI for Gallstones Additional Instructions: Activity as tolerated. Stay hydrated. Advance diet as tolerated with low fat diet and clears. Blood tests and a urine test showed no acute abnormalities. An ultrasound continues to show gallstones in the gallbladder but no evidence of infection. This could still be the cause of your pain. Continue your medications as previously prescribed by your physician, including the pain medications. You should follow up with Dr. Groves, and Dr. Saucedo or your GI specialist at [facility] as soon as possible regarding today's emergency department visit. Return to the emergency department for any new or concerning symptoms, particularly persistent or worsening pain, fever/chills, vomiting, inability to hold down food or hydrate. - Post Discharge Activity
[2017-09-09] MEDS ORDERED: SODIUM CHLORIDE 0.9% 1000 ML INFUS.BAG IV ONE (14:16)
[2017-09-09] MEDS ORDERED: MAG HYDROX/AL HYDROX/SIMETH 30 ML UNIT-DOSE CUP PO ONE (14:19)
[2017-09-09] MEDS ORDERED: ONDANSETRON 4 MG/2 ML VIAL IVPUSH ONE (14:19)
[2017-09-09] MEDS ORDERED: DICYCLOMINE HCL 20 MG/2 ML AMPUL IM ONE (14:19)
[2017-09-09] MEDS ORDERED: morphine CARPU-JECT 4 MG/1 ML DISP.SYRIN IVPUSH ONE (14:19)
[2017-09-09] MEDS ORDERED: LIDOCAINE VISCOUS 2% ORAL/TOP 20 ML UNIT-DOSE CUP MM ONE (14:19)
[2017-09-09] MEDS ORDERED: SIMETHICONE 40 MG/0.6 ML BOTTLE PO ONE (14:19)
[2017-09-09 14:45] LABS: BASO % 0.5 % (0-2.0); EOS % 0.4 % (0-4.5); HEMATOCRIT 43.1 % (32.4-45.2); HEMOGLOBIN 14.2 GM/dL (10.7-15.3); LYMPH % 17.1 % (8-40); MCH 25.3 pg (25.7-33.7); MCHC 32.9 g/dl (32.0-36.0); MEAN PLT VOLUME 8.7 fl (7.5-11.1); MONO % 6.8 % (3.8-10.2); NEUT % 75.2 % (42.8-82.8); PLATELET COUNT 102 K/MM3 (134-434); RDW 17.2 % (11.6-15.6); WHITE BLOOD COUNT 5.9 K/mm3 (4.0-10.0)
[2017-09-09 14:54] LABS: VENOUS PC02 40.9 mmHg (38-52); VENOUS PH 7.41 (7.32-7.42); VENOUS PO2 35.4 mmHg (28-48)
[2017-09-09] MEDS ORDERED: DICYCLOMINE HCL 10 MG CAPSULE PO ONE (15:02)
[2017-09-09] MEDS ORDERED: morphine SULFATE 4 MG/ML VIAL ONE (15:03)
[2017-09-09] MEDS ORDERED: DICYCLOMINE HCL 10 MG CAPSULE ONE (15:03)
[2017-09-09] MEDS ORDERED: ONDANSETRON 4 MG/2 ML VIAL ONE ×2 (15:03→20:43)
[2017-09-09] MEDS ORDERED: MAG HYDROX/AL HYDROX/SIMETH 30 ML UNIT-DOSE CUP ONE (15:03)
[2017-09-09] MEDS ORDERED: LIDOCAINE VISCOUS 2% ORAL/TOP 20 ML UNIT-DOSE CUP ONE (15:03)
[2017-09-09 15:09] LABS: ALBUMIN 4.4 g/dl (3.4-5.0); ANION GAP 10 (8-16); BILIRUBIN,TOTAL 1.2 mg/dL (0.2-1.0); BLOOD UREA NITROGEN 10 mg/dL (7-18); CALCIUM 9.8 mg/dL (8.5-10.1); CHLORIDE 103 mmol/L (98-107); CO2 27 mmol/L (21-32); CREATININE 0.6 mg/dL (0.55-1.02); GLUCOSE,RANDOM 102 mg/dL (74-106); POTASSIUM 3.9 mmol/L (3.5-5.1); SGOT/AST 15 U/L (15-37); SGPT/ALT 21 U/L (12-78); SODIUM 140 mmol/L (136-145); TOT PROT 8.3 g/dl (6.4-8.2)
[2017-09-09 15:10] LABS: ALK PHOS 137 U/L (45-117)
[2017-09-09] MEDS ORDERED: SIMETHICONE 80 MG TAB.CHEW (FP) PO ONE (15:15)
[2017-09-09 15:39] LABS: LIPASE 111 U/L (73-393)
[2017-09-09] MEDS ORDERED: INSULIN (NOVOLOG MIX 70/30) 100 UNITS/ML MDV SQ ONE (16:15)
--- NOTE | 2017-09-09 17:33 | EKG ---
Test Reason : Blood Pressure : / mmHG Vent. Rate : 081 BPM Atrial Rate : 081 BPM P-R Int : 134 ms QRS Dur : 084 ms QT Int : 400 ms P-R-T Axes : 050 -07 014 degrees QTc Int : 464 ms NORMAL SINUS RHYTHM MINIMAL VOLTAGE CRITERIA FOR LVH, MAY BE NORMAL VARIANT POSSIBLE ANTERIOR INFARCT (CITED ON OR BEFORE 09-SEP-2017) ABNORMAL ECG WHEN COMPARED WITH ECG OF 02-SEP-2017 15:07, NO SIGNIFICANT CHANGE WAS FOUND Confirmed by STEVEN CARVAJAL, GINA ([id number]) on 09/09/2017 5:33:26 PM Referred By: Confirmed By:GINA HARRIS MD
[2017-09-09] MEDS ORDERED: SODIUM CHLORIDE 1,000 ML IV ONE (17:43)
--- NOTE | 2017-09-09 18:02 | PDOC ---
*Physical Exam - Vital Signs Last Vital Signs Temp Pulse Resp BP Pulse Ox 98.6 F 100 H 18 167/97 100 09/09/17 13:37 09/09/17 13:37 09/09/17 13:37 09/09/17 13:37 09/09/17 13:37 - Physical Exam Comments: 09/09/17 17:55 alert, VSS, HR 90. dry mucosa chronically ill but alert, nad, speaking full sentences. tolerating minimal PO heart regular soft/nd. tender epigastric/RUQ, no rebound. BS nl. skin lesions as noted ED Treatment Course - LABORATORY CBC & Chemistry Diagram: 09/09/17 14:30 09/09/17 14:30 - ADDITIONAL ORDERS Additional order review: Laboratory Results 09/09/17 09/09/17 09/09/17 14:30 14:30 14:30 VBG pH POC VBG pCO2 POC VBG pO2 Mixed VBG HCO3 Sodium Potassium Chloride Carbon Dioxide Anion Gap BUN Creatinine Creat Clearance w eGFR Random Glucose Lactic Acid 2.1 H Calcium Magnesium Cancelled Total Bilirubin AST ALT Alkaline Phosphatase Ammonia < 10.00 L Creatine Kinase Cancelled Troponin I Cancelled Total Protein Albumin Lipase Cancelled 09/09/17 09/09/17 14:30 14:30 VBG pH 7.41 POC VBG pCO2 40.9 POC VBG pO2 35.4 Mixed VBG HCO3 25.7 H Sodium 140 Potassium 3.9 Chloride 103 Carbon Dioxide 27 Anion Gap 10 BUN 10 Creatinine 0.6 Creat Clearance w eGFR > 60 Random Glucose 102 Lactic Acid Calcium 9.8 Magnesium 2.0 Total Bilirubin 1.2 H D AST 15 ALT 21 Alkaline Phosphatase 137 H Ammonia Creatine Kinase 19 L Troponin I < 0.02 Total Protein 8.3 H Albumin 4.4 Lipase 111 09/09/17 14:30 RBC 5.60 H D MCV 77.0 L MCHC 32.9 RDW 17.2 H MPV 8.7 D Neutrophils % 75.2 Lymphocytes % 17.1 D Monocytes % 6.8 Eosinophils % 0.4 D Basophils % 0.5 - Medications Given in the ED: ED Medications Discontinued Medications Generic Name Dose Route Start Last Admin Trade Name Freq PRN Reason Stop Dose Admin Al Hydroxide/Mg Hydroxide 30 ml 09/09/17 14:19 09/09/17 15:05 Mylanta Oral Suspension - PO 09/09/17 14:20 30 ml ONCE ONE Administration Dicyclomine HCl 20 mg 09/09/17 14:19 09/09/17 15:15 Bentyl Injection - IM 09/09/17 14:20 Not Given ONCE ONE Dicyclomine HCl 10 mg 09/09/17 15:02 09/09/17 15:05 Bentyl - PO 09/09/17 15:03 10 mg ONCE ONE Administration Lidocaine HCl 20 ml 09/09/17 14:19 09/09/17 15:05 Xylocaine 2% Viscous Oral - MM 09/09/17 14:20 20 ml ONCE ONE Administration Morphine Sulfate 4 mg 09/09/17 14:19 09/09/17 15:05 Morphine Injection - IVPUSH 09/09/17 14:20 4 mg ONCE ONE Administration Ondansetron HCl 4 mg 09/09/17 14:19 09/09/17 15:05 Zofran Injection IVPUSH 09/09/17 14:20 4 mg ONCE ONE Administration Simethicone 80 mg 09/09/17 15:15 09/09/17 15:41 Mylicon - PO 09/09/17 15:16 80 mg ONCE ONE Administration Sodium Chloride 1,000 ml 09/09/17 14:16 09/09/17 14:45 Normal Saline - IV 09/09/17 14:17 1,000 ml ONCE ONE Administration Medical Decision Making - Medical Decision Making 09/09/17 17:59 received signout on this 47y/o F s/p breast lumpectomy, HTN, DM, liver cirrhosis with recent admission for pain control, HIDA showing no acute cholecystitis, discharged 3d ago with pain regimen presents now with persistent epigastric pain, worse with meals, complicated by minimal PO intake at home, worsening weakness. no f/c/v/d/c, admits to noncompliance with her oral pain meds 2/2 inability to tolerate PO. She does wear her patch. Presented here slightly dehydrated, tachycardic, and tender to epigastric/RUQ region. labs were sent and wnl except for slightly elevated lactate at 2.1. Case was discussed with Dr. Groves, who will follow. Pt was at [facility] at time of signout, plan was to reassess, repeat lactate, and dispo with Dr. Groves. ordered 2nd liter IVF, then will repeat lactate. U/S results pending. pt in persistent pain, does not feel she can be discharged. will reassess. 09/09/17 18:42 U/S with multiple small stones, sludge, borderline wall thickening. ducts wnl. recent HIDA was negative. receiving IVF, will repeat lactate, then d/w Dr. Groves 09/09/17 20:09 lactate improved to 1.1, UA clear. Pt feeling much better after 2nd liter of fluids. Feels comfortable going home and has GI f/u with Dr. Saucedo and her GI at [facility], where she is already followed for her cirrhosis. Discussed with Dr. Groves, agrees with d/c plan with close f/u with both GI and Gen Surg. Despite no cholecystitis, suspect gallbladder may still be source of patients recurring pain - currently asx with non obstructive LFTs. *DC/Admit/Observation/Transfer Diagnosis at time of Disposition: Epigastric pain Cholelithiasis Qualifiers: Cholelithiasis location: gallbladder Cholecystitis presence: without cholecystitis Biliary obstruction: without biliary obstruction Qualified Code(s) : K80.20 - Calculus of gallbladder without cholecystitis without obstruction - Discharge Dispostion Disposition: HOME Condition at time of disposition: Improved - Referrals Referrals: Josephine Groves [Primary Care Provider] - Suleman Saucedo MD [Staff Physician] - - Patient Instructions Printed Discharge Instructions: DI for Gallstones Additional Instructions: Activity as tolerated. Stay hydrated. Advance diet as tolerated with low fat diet and clears. Blood tests and a urine test showed no acute abnormalities. An ultrasound continues to show gallstones in the gallbladder but no evidence of infection. This could still be the cause of your pain. Continue your medications as previously prescribed by your physician, including the pain medications. You should follow up with Dr. Groves, and Dr. Saucedo or your GI specialist at [facility] as soon as possible regarding today's emergency department visit. Return to the emergency department for any new or concerning symptoms, particularly persistent or worsening pain, fever/chills, vomiting, inability to hold down food or hydrate. - Post Discharge Activity
[2017-09-09 19:30] LABS: HCG,QUALITATIVE URINE NEGATIVE
[2017-09-09 19:31] LABS: URINE APPEARANCE CLEAR; URINE BILIRUBIN NEGATIVE (<2.0 mg/dL); URINE COLOR LTYELLOW; URINE GLUCOSE (UA) NEGATIVE (NEGATIVE); URINE KETONE NEGATIVE (NEGATIVE); URINE LEUK ESTERASE NEGATIVE (NEGATIVE); URINE NITRITE NEGATIVE (NEGATIVE); URINE PROTEIN NEGATIVE (NEGATIVE); URINE UROBILINOGEN NEGATIVE mg/dL (0.2-1.0)
[2017-09-09 21:00] VITALS: BP 138/70; PULSE 80; TEMP 98
== END 2017-09-09 21:01 | disposition home or self-care (01) ==
LOC: JER 13:35
PROC: 3E0337Z Introduction of Electrolytic and Water Balance Substance into Peripheral Vein, Percutaneous Approach (ICD-10-PCS; principal; 2017-09-09)
PROC: 3E033GC Introduction of Other Therapeutic Substance into Peripheral Vein, Percutaneous Approach (ICD-10-PCS; 2017-09-09)
PROC: 3E033NZ Introduction of Analgesics, Hypnotics, Sedatives into Peripheral Vein, Percutaneous Approach (ICD-10-PCS; 2017-09-09)
DX: K80.20 Calculus of gallbladder without cholecystitis without obstruction (principal); I10 Essential (primary) hypertension; E11.9 Type 2 diabetes mellitus without complications; Z79.84 Long term (current) use of oral hypoglycemic drugs; K74.60 Unspecified cirrhosis of liver; I73.9 Peripheral vascular disease, unspecified; F17.210 Nicotine dependence, cigarettes, uncomplicated; F41.8 Other specified anxiety disorders; Z85.3 Personal history of malignant neoplasm of breast
CPT/HCPCS: 36415; 71045-TC-FY; 76705-TC; 80053; 81003; 82140; 82550; 82803; 83605; 83690; 83735; 84484; 84703; 85025; 87086; 93005; 93010; 96361; 96374; 96375; 99284-25; J7030

== ENCOUNTER 2017-09-11 11:21 | Inpatient (IN) | payer OTHER ==
[2017-09-11] MEDS ORDERED: ONDANSETRON 4 MG/2 ML VIAL IVPUSH ONE (12:08)
[2017-09-11] MEDS ORDERED: SODIUM CHLORIDE 1,000 ML IV STA (12:08)
--- NOTE | 2017-09-11 12:09 | PDOC ---
History of Present Illness - General Chief Complaint: Nausea/Vomiting Stated Complaint: Nausea/Vomiting Time Seen by Provider: 09/11/17 11:45 History Source: Patient Exam Limitations: No Limitations - History of Present Illness Travel History: No Initial Comments: 09/11/17 13:57 47-year-old female presents to the emergency room with complaints of right upper quadrant pain, nausea vomiting intermittent diarrhea and inability to tolerate by mouth. Patient states was here a few days ago and discharged home after being told her gallstones did not require surgical intervention patient is pending chemotherapy for recent diagnosis of breast cancer patient also has history of cirrhosis of unknown etiology and has been seen by Dr. Saucedo. Timing/Duration: reports: constant Quality: reports: moderate, cramping, sharpness Abdominal Pain Onset Location: reports: RUQ Pain Radiation: reports: epigastric Activities at Onset: reports: none Aggravating Factors: improves with: None Alleviating Factors: improves with: None Past History - Travel Traveled outside of the country in the last 30 days: No - Past Medical History Allergies/Adverse Reactions: Allergies Allergy/AdvReac Type Severity Reaction Status Date / Time nickel Allergy Intermediate Rash Verified 09/11/17 11:58 timolol Allergy Swelling Verified 09/11/17 11:58 titanium Allergy Verified 09/11/17 11:58 Home Medications: Ambulatory Orders Albuterol Sulfate [Proair Hfa] 8.5 gm IH PRN 08/04/17 Escitalopram Oxalate [Lexapro -] 20 mg PO BID 08/04/17 Esomeprazole Magnesium 40 mg PO DAILY 08/04/17 Furosemide [Lasix] 40 mg PO DAILY 08/04/17 Lactobacillus Acidophilus [Acidophilus] 1 tab PO BID 08/04/17 Lactulose 10 gm PO BID 08/04/17 Lorazepam [Ativan] 1 mg PO BID 08/04/17 Metformin HCl 500 mg PO BID 08/04/17 Metoprolol Tartrate 100 mg PO BID 08/04/17 Montelukast Sodium [Singulair] 10 mg PO HS 08/04/17 Ondansetron HCl [Zofran] 8 mg PO PRN PRN 08/04/17 Ranitidine [Zantac -] 150 mg PO BID 08/04/17 FENTANYL 100mcg PATCH [DURAGESIC 100mcg PATCH -] 2 each TD Q72H 08/31/17 Simethicone 80 mg PO PRN 08/31/17 Dicyclomine HCl [Bentyl -] 20 mg PO Q6H PRN #90 capsule 09/06/17 Hydrocortisone 1% Ointment [Hytone 1% Ointment -] 1 applic TP Q12H PRN tube Hydrocortisone 2.5% Lotion [Hytone 2.5% Lotion -] 1 applic TP Q12H PRN bottle 09/06/17 Nicotine Patch [Nicoderm Patch -] 14 mg TD DAILY patch 09/06/17 Spironolactone [Aldactone -] 100 mg PO DAILY #30 tablet 09/06/17 Sucralfate Oral Suspension [Carafate Oral Suspension -] 1 gm PO TID 30 Days ml 09/06/17 Asthma: Yes Cancer: Yes (Breast cancer left) Cardiac Disorders: Yes (Peripheral Artery Disease) COPD: No DVT: No Diabetes: Yes HTN: Yes Hypercholesterolemia: Yes Liver Disease: Yes (fatty liver, cirrhosis) Psychiatric Problems: Yes (depression, anxiety) - Surgical History Orthopedic Surgery: Yes (3 neck sx's (2005, 2006, 2009)) - Immunization History Immunization Up to Date: No - Suicide/Smoking/Psychosocial Hx Smoking History: Never smoked Have you smoked in the past 12 months: Yes Number of Cigarettes Smoked Daily: 20 Information on smoking cessation initiated: No 'Breaking Loose' booklet given: 09/09/17 Hx Alcohol Use: No Drug/Substance Use Hx: No Substance Use Type: None Hx Substance Use Treatment: No Patient Lives Alone: No Review of Systems - Review of Systems Able to Perform ROS?: No Constitutional: Yes: Loss of Appetite, Malaise, Weakness HEENTM: No: Symptoms Reported Respiratory: No: Symptoms reported Cardiac (ROS): No: Symptoms Reported ABD/GI: Yes: Diarrhea, Nausea, Poor Appetite, Poor Fluid Intake, Vomiting, Abdominal cramping : No: Symptoms Reported Musculoskeletal: No: Symptoms Reported Integumentary: No: Symptoms Reported Neurological: No: Symptoms reported *Physical Exam - Vital Signs Last Vital Signs Temp Pulse Resp BP Pulse Ox 97.6 F 79 16 141/60 100 09/11/17 11:25 09/11/17 11:25 09/11/17 11:25 09/11/17 11:25 09/11/17 11:25 - Physical Exam General Appearance: Yes: Nourished, Appropriately Dressed. No: Apparent Distress HEENT: positive: Pharynx Normal (dry). negative: Pale Conjunctivae Neck: positive: Supple Respiratory/Chest: positive: Lungs Clear, Normal Breath Sounds. negative: Respiratory Distress, Accessory Muscle Use Cardiovascular: positive: Regular Rhythm, Regular Rate. negative: Murmur Gastrointestinal/Abdominal: positive: Soft, Tenderness (upper quadrant epigastric left upper quadrant) ED Treatment Course - LABORATORY CBC & Chemistry Diagram: 09/11/17 12:55 09/11/17 12:50 Medical Decision Making - Medical Decision Making 09/11/17 13:03 Patient withcontinual nausea vomiting diarrhea right upper quadrant pain. Patient on exam with tenderness quadrant and does have history of cholecystitis. Patient concerning for dehydration, metabolic derangement, cholecystitis. Patient ordered for labs, IV fluids, antiemetics and was counseled by Dr. Moncada who is recommending consultation to Dr. Saucedo and Dr. Stern surgery along with a MedSurg. 09/11/17 14:05 Laboratory Tests 09/11/17 09/11/17 12:50 12:55 WBC 7.3 Hgb 13.5 Hct 41.3 RDW 17.5 H Plt Count 106 L Neutrophils % 79.8 Sodium 141 Potassium 3.9 Chloride 104 Carbon Dioxide 27 Anion Gap 10 Creatinine 0.6 Creat Clearance w eGFR > 60 Random Glucose 91 Calcium 9.5 Magnesium 2.2 Total Bilirubin 0.9 D ALT 46 Alkaline Phosphatase 137 H Total Protein 7.8 Lipase 239 *DC/Admit/Observation/Transfer Diagnosis at time of Disposition: Abdominal pain, Nausea & vomiting, Cholelithiasis - Discharge Dispostion Decision to Admit order: Yes - Referrals - Patient Instructions - Post Discharge Activity
--- NOTE | 2017-09-11 12:34 | HP ---
Admitting History and Physical - Primary Care Physician PCP: Josephine Groves S - Admission Chief Complaint: right upper quadrant pain, nausea vomiting intermittent diarrhea and inability to tolerate by mouth; weight loss History of Present Illness: 47-year-old female presents to the emergency room with complaints of right upper quadrant pain, sharp and nausea vomiting intermittent diarrhea and inability to tolerate by mouth. Patient was recently discharged home from [facility], [facility] with gallstones, told to f/u with GI and surgery at [facility] (has chela for early September); seen by GI dr Saucedo here and surgery dr Stern here and told gallstones did not require emergent surgical intervention at that point , HIDA was negativel; patient is pending chemotherapy for recent diagnosis of breast cancer and had port placed recently; patient also has history of liver cirrhosis and has been seen by GI Dr. Saucedo. pt is s/p recent UTI and was treated with iv ceftriaxone (could not tolerate po ATB) seen by ID last admission pt has chronci back and neck pain seen by pain dr on high doses opiates outpt for long time, I advised her few times in the past to cut down and taper opiates to off; she is also seen regularly by psychiatry for anxiety and depression. also of note, pt used to have chronic constipation and took daily stools softeners chronic History Source: Patient Limitations to Obtaining History: No Limitations - Past Medical History DATA SUPPORT SPECIALIST: Yes: Migraine, Other Cardiovascular: Yes: HTN Pulmonary: Yes: COPD Gastrointestinal: Yes: Gastritis Hepatobiliary: Yes: Cirrhosis Renal/: Yes: UTI ...LMP: 08/26/03 Heme/Onc: Yes: Cancer Rheumatology: Yes: Other (Psoriatic arthritis) Endocrine: Yes: Diabetes Mellitus - Past Surgical History Past Surgical History: Yes: Laminectomy (C spine discectomy and fusion [facility] 2005, repeat fusion 2006, cervical hardware removed at [facility] 2009), Tonsillectomy, Upper Endoscopy - Smoking History Smoking history: Never smoked Have you smoked in the past 12 months: Yes Aproximately how many cigarettes per day: 20 - Alcohol/Substance Use Hx Alcohol Use: No History of Substance Use: reports: Prescription - Social History Usual Living Arrangement: Yes: Other (with sister) ADL: Independent Occupation: disability History of Recent Travel: No Home Medications - Allergies Allergies/Adverse Reactions: Allergies Allergy/AdvReac Type Severity Reaction Status Date / Time nickel Allergy Intermediate Rash Verified 09/11/17 11:58 timolol Allergy Swelling Verified 09/11/17 11:58 titanium Allergy Verified 09/11/17 11:58 - Home Medications Home Medications: Ambulatory Orders Albuterol Sulfate [Proair Hfa] 8.5 gm IH PRN 08/04/17 Escitalopram Oxalate [Lexapro -] 20 mg PO BID 08/04/17 Esomeprazole Magnesium 40 mg PO DAILY 08/04/17 Furosemide [Lasix] 40 mg PO DAILY 08/04/17 Lactobacillus Acidophilus [Acidophilus] 1 tab PO BID 08/04/17 Lactulose 10 gm PO BID 08/04/17 Lorazepam [Ativan] 1 mg PO BID 08/04/17 Metformin HCl 500 mg PO BID 08/04/17 Metoprolol Tartrate 100 mg PO BID 08/04/17 Montelukast Sodium [Singulair] 10 mg PO HS 08/04/17 Ondansetron HCl [Zofran] 8 mg PO PRN PRN 08/04/17 Ranitidine [Zantac -] 150 mg PO BID 08/04/17 FENTANYL 100mcg PATCH [DURAGESIC 100mcg PATCH -] 2 each TD Q72H 08/31/17 Simethicone 80 mg PO PRN 08/31/17 Dicyclomine HCl [Bentyl -] 20 mg PO Q6H PRN #90 capsule 09/06/17 Hydrocortisone 1% Ointment [Hytone 1% Ointment -] 1 applic TP Q12H PRN tube Hydrocortisone 2.5% Lotion [Hytone 2.5% Lotion -] 1 applic TP Q12H PRN bottle 09/06/17 Nicotine Patch [Nicoderm Patch -] 14 mg TD DAILY patch 09/06/17 Spironolactone [Aldactone -] 100 mg PO DAILY #30 tablet 09/06/17 Sucralfate Oral Suspension [Carafate Oral Suspension -] 1 gm PO TID 30 Days ml 09/06/17 Family Disease History - Family Disease History Family Disease History: CA: Father (lung), Mother (lung) Review of Systems - Review of Systems Constitutional: reports: Loss of Appetite, Unintentional Wgt. Loss, Weakness ( general). denies: Chills, Fever, Lethargy Eyes: denies: Blind Spots, Blurred Vision, Double Vision, Eye Pain HENT: denies: Difficult Swallowing, Epistaxis Neck: denies: Decreased ROM, Pain on Movement, Stiffness Cardiovascular: denies: Chest Pain, Edema, Palpitations, Shortness of Breath Respiratory: denies: Cough, Exercise Intolerance, Hemoptysis, SOB, SOB on Exertion Gastrointestinal: reports: Abdominal Pain (epigastric, sharp, intermitent), Bloating, Diarrhea. denies: Constipation, Vomiting, Vomiting Blood Genitourinary: denies: Burning, Discharge, Dysuria, Flank Pain Musculoskeletal: reports: Back Pain (chronic) Neurological: denies: Change in LOC, Change in Speech, Confusion, Dizziness Hematology/Lymphatic: denies: Easily Bruised, Excessive Bleeding Psychiatric: reports: Anxiety, Depression. denies: Altered Sleep Pattern Physical Examination Vital Signs: Vital Signs Temperature 97.6 F 09/11/17 11:25 Pulse Rate 79 09/11/17 11:25 Respiratory Rate 16 09/11/17 11:25 Blood Pressure 141/60 09/11/17 11:25 O2 Sat by Pulse Oximetry (%) 100 09/11/17 11:25 Constitutional: Yes: No Distress, Calm Eyes: Yes: Conjunctiva Clear HENT: Yes: Atraumatic Neck: Yes: Supple Cardiovascular: Yes: Regular Rate and Rhythm Respiratory: Yes: CTA Bilaterally Gastrointestinal: Yes: Soft, Palpable Mass (hepatomegaly), Tenderness (RUQ and epigastric areas). No: Distention, Tenderness, Rebound Renal/: No: CVA Tenderness - Left, CVA Tenderness - Right Musculoskeletal: No: Joint Stiffness, Joint Swelling Extremities: No: Cold, Cool, Cyanosis Edema: No Integumentary: Yes: Rash (chronic psoriasis, now better). No: Skin Tear, Venous Stasis Changes Neurological: Yes: WNL, Alert, Oriented ...Motor Strength: WNL Psychiatric: Yes: WNL, Alert, Oriented. No: Agitated, Suicidal Ideation Imaging - Results Chest X-ray: Report Reviewed Other: Report Reviewed Assessment/Plan 47-year-old female h/o advanced liver cirrhosis, breast CA, presents to the emergency room with complaints of right upper quadrant pain, nausea vomiting intermittent diarrhea and inability to tolerate by mouth, weight loss. Gallstones but recent HIDA negative; s/p recent UTI admit, IVF; GI and surgery eval check stools O/P, C/S and Cdiff ONC eval f/u labs falls DVT PFX pt is ambulatory prognosis guarded d/w pt and sister Tracy in ER
[2017-09-11 13:02] LABS: BASO % 0.4 % (0-2.0); EOS % 0.2 % (0-4.5); HEMATOCRIT 41.3 % (32.4-45.2); HEMOGLOBIN 13.5 GM/dL (10.7-15.3); MCH 25.1 pg (25.7-33.7); MCHC 32.8 g/dl (32.0-36.0); MEAN CELL VOLUME 76.7 fl (80-96); MEAN PLT VOLUME 9.8 fl (7.5-11.1); MONO % 5.6 % (3.8-10.2); NEUT % 79.8 % (42.8-82.8); PLATELET COUNT 106 K/MM3 (134-434); RBC 5.39 M/mm3 (3.60-5.2); RDW 17.5 % (11.6-15.6); WHITE BLOOD COUNT 7.3 K/mm3 (4.0-10.0)
[2017-09-11] MEDS ORDERED: ONDANSETRON 4 MG/2 ML VIAL ONE (13:12)
[2017-09-11 13:31] LABS: ALBUMIN 4.3 g/dl (3.4-5.0); ALK PHOS 137 U/L (45-117); ANION GAP 10 (8-16); BILIRUBIN,TOTAL 0.9 mg/dL (0.2-1.0); BLOOD UREA NITROGEN 13 mg/dL (7-18); CALCIUM 9.5 mg/dL (8.5-10.1); CHLORIDE 104 mmol/L (98-107); CO2 27 mmol/L (21-32); CREATININE 0.6 mg/dL (0.55-1.02); GLUCOSE,RANDOM 91 mg/dL (74-106); SGPT/ALT 46 U/L (12-78); SODIUM 141 mmol/L (136-145); TOT PROT 7.8 g/dl (6.4-8.2)
[2017-09-11 13:33] LABS: LIPASE 239 U/L (73-393); MAGNESIUM 2.2 mg/dL (1.8-2.4); POTASSIUM 3.9 mmol/L (3.5-5.1); SGOT/AST 43 U/L (15-37)
--- NOTE | 2017-09-11 13:56 | PN ---
Progress Note (short form) - Note Progress Note: Patient seen and examined comes in with recurrent RUQ pain Last Vital Signs Temp Pulse Resp BP Pulse Ox 97.6 F 79 16 141/60 100 09/11/17 11:25 09/11/17 11:25 09/11/17 11:25 09/11/17 11:25 09/11/17 11:25 CBC, BMP 09/11/17 12:55 09/11/17 12:50 Cor: RSR, No murmurs, No gallops Lungs: Clear to P&A Abd: Soft, Normal bowel sounds Ext:No significant edema left breast _well healed lumpectomy scar, post surgical changes seen. rt breast : with no palpable masses. Labs/Meds reviewed A/P 47 y/o patient with recently diagnosed breast cancer status post L lumpectomy/ ALND on 08/07/17, T2, N0, ER-/MD-/Her2-2+/FISH equivocaL. Also with cirrhosis/ fatty liver/portal HTN/anxiety/depression/chronic opiate dependence/psoriasis/ psoriatic arthritis. Patient comes in again with RUQ pain. Last HIDA scan does not show cystic duct obstruction. Also had an ER visit for the same on 09/09 [facility] Ultrasound from 09/09: report reviewed Surgery c/s awaited. Psoriasis: still active. s/p port placement CBC at her baseline
[2017-09-11 16:24] LABS: INR 1.2 (0.82-1.09); PROTHROMBIN TIME (PATIENT) 13.6 SEC (9.7-13.0)
[2017-09-11] MEDS ORDERED: morphine SULFATE 4 MG/ML VIAL IVPUSH PRN ×2 (17:15→21:38)
[2017-09-11] MEDS: METOPROLOL TARTRATE 50 MG TABLET (FP) PO SCH ×2 (18:19→23:19)
[2017-09-11] MEDS ORDERED: ALBUTEROL SO4 18 GM HFA INHALER IH SCH (21:45)
[2017-09-11] MEDS ORDERED: ESCITALOPRAM OXALATE 10 MG TABLET (FP) ONE (22:23)
[2017-09-11] MEDS: LORazepam 1 MG TABLET PO SCH (22:26)
[2017-09-11] MEDS: PANTOPRAZOLE SODIUM 40 MG VIAL IVPUSH SCH (22:26)
[2017-09-11] MEDS: MONTELUKAST NA 10 MG TABLET PO SCH (22:26)
[2017-09-11] MEDS: ESCITALOPRAM OXALATE 20 MG TABLET (FP) PO SCH (22:27)
[2017-09-11 22:31] LABS: URINE APPEARANCE CLEAR; URINE BILIRUBIN NEGATIVE (<2.0 mg/dL); URINE BLOOD NEGATIVE (NEGATIVE); URINE COLOR YELLOW; URINE GLUCOSE (UA) NEGATIVE (NEGATIVE); URINE KETONE TRACE (NEGATIVE); URINE LEUK ESTERASE NEGATIVE (NEGATIVE); URINE NITRITE NEGATIVE (NEGATIVE); URINE PROTEIN NEGATIVE (NEGATIVE); URINE UROBILINOGEN NORMAL mg/dL (0.2-1.0)
[2017-09-11] MEDS: INSULIN SLIDING SCALE (NOVOLOG) 1 VIAL SQ SCH (22:36)
[2017-09-11] MEDS: AMPICILLIN NA/SULBACTAM NA 3 GM in SODIUM CHLORIDE 100 ML IVPB SCH (23:23)
[2017-09-12] MEDS: AMPICILLIN NA/SULBACTAM NA 3 GM in SODIUM CHLORIDE 100 ML IVPB SCH ×3 (02:00→10:49)
[2017-09-12] MEDS: INSULIN SLIDING SCALE (NOVOLOG) 1 VIAL SQ SCH ×4 (06:06→22:14)
--- NOTE | 2017-09-12 06:07 | PN ---
Progress Note, Physician Chief Complaint: still with diarrhea; seen by GI and surgery no surgical intervention at this point per surgery; will advnace diet, if able to eat and diarrhea improves will DC home with f/u at [facility], if not will try to transfer to [facility] as inpt - Current Medication List Current Medications: Active Medications Albuterol Sulfate (Ventolin Hfa Inhaler -) puff IH PRN [facility] Escitalopram Oxalate (Lexapro -) 20 mg PO BID [facility] Last Admin: 09/11/17 22:27 Dose: 20 mg Fentanyl (Duragesic 100mcg Patch -) 2 patch TD Q72H [facility] Ampicillin Sodium/Sulbactam (Sodium 3 gm/ Sodium Chloride) 100 mls @ 200 mls/ hr IVPB Q8H-IV [facility] Last Admin: 09/12/17 02:00 Dose: Not Given Insulin Aspart (Novolog Vial Sliding Scale -) 1 vial SQ ACHS [facility]; Protocol Last Admin: 09/12/17 06:06 Dose: Not Given Lorazepam (Ativan -) 1 mg PO BID [facility] Last Admin: 09/11/17 22:26 Dose: 1 mg Metoprolol Tartrate (Lopressor -) 100 mg PO BID [facility] Last Admin: 09/11/17 23:19 Dose: 100 mg Montelukast Sodium (Singulair -) 10 mg PO HS [facility] Last Admin: 09/11/17 22:26 Dose: 10 mg Morphine Sulfate (Morphine Sulfate) 2 mg IVPUSH Q4H PRN PRN Reason: PAIN 7-10 Nicotine (Nicoderm Patch -) 14 mg TD DAILY [facility] Pantoprazole Sodium (Protonix Iv) 40 mg IVPUSH DAILY [facility] Last Admin: 09/11/17 22:26 Dose: 40 mg - Objective Vital Signs: Vital Signs Temperature 98.7 F 09/11/17 18:00 Pulse Rate 60 09/11/17 23:37 Respiratory Rate 18 09/11/17 18:00 Blood Pressure 144/75 09/11/17 23:37 O2 Sat by Pulse Oximetry (%) 100 09/11/17 20:14 Constitutional: Yes: No Distress, Calm Eyes: Yes: Conjunctiva Clear HENT: Yes: Atraumatic Neck: Yes: Supple Cardiovascular: Yes: Regular Rate and Rhythm Respiratory: Yes: CTA Bilaterally Gastrointestinal: Yes: Soft, Hepatomegaly, Tenderness (RUQ), Tenderness, Epigastrium. No: Distention, Tenderness, Rebound, Vomiting Genitourinary: No: CVA Tenderness - Left, CVA Tenderness - Right Musculoskeletal: No: Joint Stiffness, Joint Swelling Extremities: No: Cold, Cool, Cyanosis Edema: No Integumentary: Yes: Rash (psoriasis) Neurological: Yes: WNL, Alert, Oriented ...Motor Strength: WNL Psychiatric: Yes: WNL, Alert, Oriented. No: Agitated, Suicidal Ideation Labs: CBC, BMP 09/11/17 12:55 09/11/17 12:50 INR, PTT INR 1.20 (0.82-1.09) H 09/11/17 15:10 - ....Imaging Other: Report Reviewed Assessment/Plan 47-year-old female h/o advanced liver cirrhosis, breast CA, presents to the emergency room with complaints of right upper quadrant pain, nausea vomiting intermittent diarrhea and inability to tolerate by mouth, weight loss. Gallstones but recent HIDA negative; s/p recent UTI admit, IVF; GI and surgery f/u check stools O/P, C/S and Cdiff still pending ONC eval f/u labs falls DVT PFX pt is ambulatory prognosis guarded d/w pt and staff see above
[2017-09-12] MEDS ORDERED: PT OWN MED DRAWER 7, Y5N ONE ×3 (06:31→15:18)
[2017-09-12 08:24] LABS: CHLORIDE 109 mmol/L (98-107); POTASSIUM 3.6 mmol/L (3.5-5.1); SODIUM 142 mmol/L (136-145)
[2017-09-12 08:36] LABS: BASO % 0.7 % (0-2.0); EOS % 2.1 % (0-4.5); HEMATOCRIT 34.4 % (32.4-45.2); HEMOGLOBIN 11.5 GM/dL (10.7-15.3); LYMPH % 35.7 % (8-40); MCH 25.2 pg (25.7-33.7); MCHC 33.3 g/dl (32.0-36.0); MEAN CELL VOLUME 75.7 fl (80-96); MEAN PLT VOLUME 9.6 fl (7.5-11.1); MONO % 8.6 % (3.8-10.2); NEUT % 52.9 % (42.8-82.8); RBC 4.54 M/mm3 (3.60-5.2); RDW 16.9 % (11.6-15.6); WHITE BLOOD COUNT 4.6 K/mm3 (4.0-10.0)
[2017-09-12 08:42] LABS: ALBUMIN 3.4 g/dl (3.4-5.0); ALK PHOS 104 U/L (45-117); ANION GAP 7 (8-16); BILIRUBIN,TOTAL 0.8 mg/dL (0.2-1.0); BLOOD UREA NITROGEN 18 mg/dL (7-18); CALCIUM 8.6 mg/dL (8.5-10.1); CO2 26 mmol/L (21-32); CREATININE 0.5 mg/dL (0.55-1.02); GLUCOSE,RANDOM 76 mg/dL (74-106); SGOT/AST 27 U/L (15-37); SGPT/ALT 31 U/L (12-78); TOT PROT 6.2 g/dl (6.4-8.2)
[2017-09-12 08:44] LABS: PLATELET COUNT 85 K/MM3 (134-434)
[2017-09-12] MEDS ORDERED: ESCITALOPRAM OXALATE 10 MG TABLET (FP) ONE (10:23)
--- NOTE | 2017-09-12 10:23 | CONSULT ---
- Consultation REQUESTING PROVIDER: Alfonso Groves MD CONSULT REQUEST: We have been asked to surgically evaluate this patient for abdominal pain PCP:Josephine Groves HISTORY OF PRESENT ILLNESS: See my previous consult of 08/29/17; recurrent epigastric radiating to the back abdominal pain; NOC; she had an EGD on previous admission which did not show PUD; recent US shows sludge and small stones PMHx: breast carcinoma; cirrhosis of ? origin PSHx: breast surgery Home Medications Medication Instructions Recorded Albuterol Sulfate [Proair Hfa] 8.5 gm IH PRN 08/04/17 Escitalopram Oxalate [Lexapro -] 20 mg PO BID 08/04/17 Esomeprazole Magnesium 40 mg PO DAILY 08/04/17 Furosemide [Lasix] 40 mg PO DAILY 08/04/17 Lactobacillus Acidophilus 1 tab PO BID 08/04/17 [Acidophilus] Lactulose 10 gm PO BID 08/04/17 Lorazepam [Ativan] 1 mg PO BID 08/04/17 Metformin HCl 500 mg PO BID 08/04/17 Metoprolol Tartrate 100 mg PO BID 08/04/17 Montelukast Sodium [Singulair] 10 mg PO HS 08/04/17 Ondansetron HCl [Zofran] 8 mg PO PRN PRN 08/04/17 Ranitidine [Zantac -] 150 mg PO BID 08/04/17 FENTANYL 100mcg PATCH [DURAGESIC 2 each TD Q72H 08/31/17 100mcg PATCH -] Simethicone 80 mg PO PRN 08/31/17 Dicyclomine HCl [Bentyl -] 20 mg PO Q6H PRN #90 capsule 09/06/17 Hydrocortisone 1% Ointment [Hytone 1 applic TP Q12H PRN tube 09/06/17 1% Ointment -] Hydrocortisone 2.5% Lotion [Hytone 1 applic TP Q12H PRN bottle 09/06/17 2.5% Lotion -] Nicotine Patch [Nicoderm Patch -] 14 mg TD DAILY patch 09/06/17 Spironolactone [Aldactone -] 100 mg PO DAILY #30 tablet 09/06/17 Sucralfate Oral Suspension 1 gm PO TID 30 Days ml 09/06/17 [Carafate Oral Suspension -] Allergies Allergy/AdvReac Type Severity Reaction Status Date / Time nickel Allergy Intermediate Rash Verified 09/11/17 11:58 timolol Allergy Swelling Verified 09/11/17 11:58 titanium Allergy Verified 09/11/17 11:58 PHYSICAL EXAM: GENERAL: Awake, alert, and fully oriented, in no acute distress. HEAD: Normal with no signs of trauma. EYES: PERRL, sclera anicteric, conjunctiva clear. ABDOMEN: Soft, nontender, not distended, normoactive bowel sounds, no guarding, no rebound, no masses. No organomegaly. MUSCULOSKELETAL: Normal ROM at all joints. No bony deformities or tenderness. No CVA tenderness. UPPER EXTREMITIES: 2+ pulses, warm, well-perfused. No cyanosis. Cap refill <2 seconds. No peripheral edema. LOWER EXTREMITIES: 2+ pulses, warm, well-perfused. No calf tenderness. No peripheral edema. NEUROLOGICAL: Normal speech, gait not observed. PSYCH: Cooperative. Good eye contact. Appropriate mood and affect. SKIN: Warm, dry, normal turgor, psoriasis is presentVital Signs Temperature 98.1 F 09/12/17 07:15 Pulse Rate 67 09/12/17 07:15 Respiratory Rate 19 09/12/17 07:15 Blood Pressure 138/69 09/12/17 07:15 O2 Sat by Pulse Oximetry (%) 100 09/11/17 20:14 Lab Results WBC 4.6 K/mm3 (4.0-10.0) D 09/12/17 06:30 RBC 4.54 M/mm3 (3.60-5.2) 09/12/17 06:30 Hgb 11.5 GM/dL (10.7-15.3) D 09/12/17 06:30 Hct 34.4 % (32.4-45.2) D 09/12/17 06:30 MCV 75.7 fl (80-96) L 09/12/17 06:30 MCHC 33.3 g/dl (32.0-36.0) 09/12/17 06:30 RDW 16.9 % (11.6-15.6) H 09/12/17 06:30 Plt Count 85 K/MM3 (134-434) L 09/12/17 06:30 Sodium 142 mmol/L (136-145) 09/12/17 06:30 Potassium 3.6 mmol/L (3.5-5.1) 09/12/17 06:30 Chloride 109 mmol/L (98-107) H 09/12/17 06:30 Carbon Dioxide 26 mmol/L (21-32) 09/12/17 06:30 Anion Gap 7 (8-16) L 09/12/17 06:30 BUN 18 mg/dL (7-18) 09/12/17 06:30 Creatinine 0.5 mg/dL (0.55-1.02) L 09/12/17 06:30 Random Glucose 76 mg/dL (74-106) 09/12/17 06:30 Calcium 8.6 mg/dL (8.5-10.1) 09/12/17 06:30 Blood Type B POSITIVE 09/11/17 15:10 Antibody Screen Negative 09/11/17 15:10 INR 1.20 (0.82-1.09) H 09/11/17 15:10 IMP: ? biliary colic PLAN: Given her cirrhosis and portal hypertension advise evaluation for lap kiko at tertiary care center where she sees her liver specialist ([facility]); she has no evidence of an acute surgical abdomen at this time. Huseyin Stern MD FACS
[2017-09-12] MEDS: ESCITALOPRAM OXALATE 20 MG TABLET (FP) PO SCH ×2 (10:28→22:13)
[2017-09-12] MEDS: LORazepam 1 MG TABLET PO SCH ×2 (10:28→22:13)
[2017-09-12] MEDS: METOPROLOL TARTRATE 50 MG TABLET (FP) PO SCH ×3 (10:29→22:14)
[2017-09-12] MEDS: NICOTINE 14 MG/24 HOURS TOPICAL PATCH TD SCH (10:29)
[2017-09-12] MEDS: PANTOPRAZOLE SODIUM 40 MG VIAL IVPUSH SCH ×2 (10:32→10:48)
[2017-09-12] MEDS ORDERED: HYDROCORTISONE 2.5% LOTION - 1 BOTTLE TP PRN (11:42)
[2017-09-12] MEDS ORDERED: HYDROCORTISONE 1% TOPICAL OINT 30 GM TUBE TP PRN (11:42)
[2017-09-12] MEDS ORDERED: PANTOPRAZOLE 40 MG TABLET (FP) PO SCH (11:45)
[2017-09-12] MEDS: PANTOPRAZOLE 40 MG TABLET (FP) PO SCH (12:28)
[2017-09-12] MEDS: SUCRALFATE 1 GM/10 ML UNIT DOSE CUPS PO SCH ×2 (15:06→22:14)
[2017-09-12] MEDS: DICYCLOMINE HCL 10 MG CAPSULE PO PRN (15:12)
--- NOTE | 2017-09-12 17:09 | CON.CARD ---
Consult Consult Specialty:: cardio - History of Present Illness Chief Complaint: abd pain History of Present Illness: 47 female here for abd pain. + sludge, stones on GB sono. seen by surgery--torin hoover at [facility] ([facility] ). she described to me feeling discomfort in epigastrium radiating up to throat, feels LIKE ACID/HEARTBURN. she is currently crying b/c just received bad news, and she prefers not to be interviewed at the moment beyond the above. seefrank moreno in office for CAD risk factor mgmt and prior abnormal nuclear stress test (lateral wall ischemia) felt likely false-positive per review of his notes (more recent stress test normal). PMH: KELLY with cirrhosis obesity HPL HTN + cigs h/o breast cancer no definite cad history - Past Medical History [employer]: Yes: Migraine, Other Cardio/Vascular: Yes: HTN Pulmonary: Yes: COPD Gastrointestinal: Yes: Gastritis Hepatobiliary: Yes: Cirrhosis Renal/: Yes: UTI ...LMP: 08/26/03 Rheumatology: Yes: Other (Psoriatic arthritis) Endocrine: Yes: Diabetes Mellitus Additional Medical History: Chronic lymphadenopathy. Anxiety disorder. Narcotic addiction - Past Surgical History Past Surgical History: Yes: Laminectomy (C spine discectomy and fusion [facility] 2005, repeat fusion 2006, cervical hardware removed at [facility] 2009), Tonsillectomy, Upper Endoscopy - Alcohol/Substance Use Hx Alcohol Use: No History of Substance Use: reports: Prescription - Smoking History Smoking history: Never smoked Have you smoked in the past 12 months: Yes Aproximately how many cigarettes per day: 20 - Social History Usual Living Arrangement: Alone ADL: Independent Occupation: disability History of Recent Travel: No Home Medications - Allergies Allergies/Adverse Reactions: Allergies Allergy/AdvReac Type Severity Reaction Status Date / Time nickel Allergy Intermediate Rash Verified 09/11/17 11:58 timolol Allergy Swelling Verified 09/11/17 11:58 titanium Allergy Verified 09/11/17 11:58 - Home Medications Home Medications: Ambulatory Orders Albuterol Sulfate [Proair Hfa] 8.5 gm IH PRN 08/04/17 Escitalopram Oxalate [Lexapro -] 20 mg PO BID 08/04/17 Esomeprazole Magnesium 40 mg PO DAILY 08/04/17 Furosemide [Lasix] 40 mg PO DAILY 08/04/17 Lactobacillus Acidophilus [Acidophilus] 1 tab PO BID 08/04/17 Lactulose 10 gm PO BID 08/04/17 Lorazepam [Ativan] 1 mg PO BID 08/04/17 Metformin HCl 500 mg PO BID 08/04/17 Metoprolol Tartrate 100 mg PO BID 08/04/17 Montelukast Sodium [Singulair] 10 mg PO HS 08/04/17 Ondansetron HCl [Zofran] 8 mg PO PRN PRN 08/04/17 Ranitidine [Zantac -] 150 mg PO BID 08/04/17 FENTANYL 100mcg PATCH [DURAGESIC 100mcg PATCH -] 2 each TD Q72H 08/31/17 Simethicone 80 mg PO PRN 08/31/17 Dicyclomine HCl [Bentyl -] 20 mg PO Q6H PRN #90 capsule 09/06/17 Hydrocortisone 1% Ointment [Hytone 1% Ointment -] 1 applic TP Q12H PRN tube Hydrocortisone 2.5% Lotion [Hytone 2.5% Lotion -] 1 applic TP Q12H PRN bottle 09/06/17 Nicotine Patch [Nicoderm Patch -] 14 mg TD DAILY patch 09/06/17 Spironolactone [Aldactone -] 100 mg PO DAILY #30 tablet 09/06/17 Sucralfate Oral Suspension [Carafate Oral Suspension -] 1 gm PO TID 30 Days ml 09/06/17 Family Disease History - Family Disease History Family Disease History: CA: Father (lung), Mother (lung) Review of Systems - Review of Systems Constitutional: denies: Chills, Fever Eyes: denies: Eye Pain HENT: denies: Nasal Congestion Neck: denies: Stiffness Cardiovascular: denies: Palpitations Respiratory: denies: Orthopnea, PND Gastrointestinal: denies: Diarrhea, Rectal Bleeding Genitourinary: denies: Burning, Hematuria Musculoskeletal: denies: Muscle Pain Integumentary: denies: Rash Neurological: denies: Numbness, Seizure, Syncope Endocrine: denies: Excessive Sweating Hematology/Lymphatic: denies: Excessive Bleeding Vital Signs: Vital Signs Temperature 98.4 F 09/12/17 15:34 Pulse Rate 54 L 09/12/17 15:34 Respiratory Rate 18 09/12/17 09:00 Blood Pressure 151/77 09/12/17 09:00 O2 Sat by Pulse Oximetry (%) 100 09/11/17 20:14 Constitutional: Yes: Well Nourished, No Distress Eyes: No: Sclera Icterus HENT: No: Nasal Congestion Neck: No: Decreased ROM Respiratory: Yes: CTA Bilaterally. No: Accessory Muscle Use, Rales, Wheezes Gastrointestinal: Yes: Normal Bowel Sounds. No: Distention, Hepatomegaly, Palpable Mass, Tenderness Cardiovascular: Yes: Regular Rate and Rhythm JVD: No Carotid Bruit: No PMI: Non-Displaced Heart Sounds: Yes: S1, S2. No: Gallop Murmur: No: Systolic Murmur, Diastolic Murmur Musculoskeletal: Yes: Other (No kyphosis) Extremities: No: Cold, Cyanosis Edema: No Peripheral Pulses: 2+ Left Carotid, 2+ Right Carotid, 2+ Left Doralis Pedis, 2+ Right Dorsalis Pedis Integumentary: Yes: Other (psoriatic plaques on LEs). No: Jaundice Neurological: Yes: Alert, Oriented (x3) Psychiatric: No: Agitated - Other Data Labs, Other Data: CBC, BMP 09/12/17 06:30 09/12/17 06:30 INR, PTT INR 1.20 (0.82-1.09) H 09/11/17 15:10 Laboratory Tests 09/12/17 09/12/17 06:30 06:30 WBC 4.6 D Hgb 11.5 D Plt Count 85 L Sodium 142 Potassium 3.6 Carbon Dioxide 26 BUN 18 Creatinine 0.5 L AST 27 ALT 31 Assessment/Plan echo 05/2017: nl lv, rv nl size, mild red rv fcn, mod lae, mild ar, mild tr, mild phtn mibi 07/2014: mild degree, moderate size lateral wall ischemia, nl lvef mibi 06/04 (marielena): No STs. no ischemia. hyperdynamic EF. no TID. abd pain: -? sec to GB--per surgery -? GERD per pt description -not suggestive of cardiac etiology. no ekg or troponin done, ordered by me at time of exam ? history of cad: -Prior mibi with mild ischemia, more recent nuclear stress test showed no ischemia--likely she does not have significant cad per dr moreno notes. -Cont risk factor modification as doing. Off bb for low bp and off statin for cirrhosis. -has been asymptomatic at home -doubt cardiac sx's here--ekg and cardiac enzymes pending htn: - controlled without meds as of last o.v. 08/02 - here has been elevated to syst 180s and diast 110 at times - ? component of abd pain and/or anxiety contributing. - bp improved presently, fluctuating (at times near normal). - observe bp trend--rec trial of amlodipine if persists >150/100 palps: - thought to be from sinus tachy from deconditioning by dr moreno. - previously on b-silva--held for lwo bp's HPL: - statin held previously due to dx of cirrhosis. tob use: -counselled benefits of cessation le edema: -treated for venous insuff +/- related to cirrhosis as outpt--takes lasix 40 bid preop CV eval: -RCRI = 0 to 1 (suspect no CAD history--likely false positive prior nuclear stress test) -has had no angina, recent MPI 06/04 no ischemia, normal LV systolic function. -doubt current abdominal sx's are anginal. -if ECG and troponin unremarkable, then no further cardiac w/u is indicated prior to surgery, in line with ACC guidelines
--- NOTE | 2017-09-12 17:09 | PN ---
Progress Note (short form) - Note Progress Note: seen and examined c/o diarrhea c/o "gassy" feel cor: RSR, No murmurs, No gallops Lungs: Clear to P&A Abd: Soft, Normal bowel sounds Ext:No significant edema left breast _well healed lumpectomy scar, post surgical changes seen. rt breast : with no palpable masses. Temp Pulse Resp BP Pulse Ox 98.4 F 54 L 18 151/77 100 09/12/17 15:34 09/12/17 15:34 09/12/17 09:00 09/12/17 09:00 09/11/17 20:14 CBC, BMP 09/12/17 06:30 09/12/17 06:30 Current Medications Generic Name Dose Route Start Last Admin Trade Name Freq PRN Reason Stop Dose Admin Albuterol Sulfate puff 09/11/17 21:45 Ventolin Hfa Inhaler - IH PRN ANY Dicyclomine HCl 20 mg 09/12/17 11:42 09/12/17 15:12 Bentyl - PO 20 mg Q6H PRN Administration ABDOMINAL PAIN Escitalopram Oxalate 20 mg 09/11/17 22:00 09/12/17 10:28 Lexapro - PO 20 mg BID ANY Administration Fentanyl 2 patch 09/13/17 10:00 Duragesic 100mcg Patch - TD Q72H ANY Hydrocortisone 1 applic 09/12/17 11:42 Hytone 1% Ointment - TP Q12H PRN FOR ITCHING Hydrocortisone 1 applic 09/12/17 11:42 Hytone 2.5% Lotion - TP Q12H PRN FOR ITCHING Insulin Aspart 1 vial 09/11/17 22:00 09/12/17 16:51 Novolog Vial Sliding Scale - SQ Not Given ACHS ANY Protocol Lactobacillus Acidophilus 1 tab 09/12/17 11:45 Bacid - PO BID ANY Lorazepam 1 mg 09/11/17 22:00 09/12/17 10:28 Ativan - PO 1 mg BID ANY Administration Metoprolol Tartrate 100 mg 09/12/17 11:45 09/12/17 12:31 Lopressor - PO Not Given BID ANY Metronidazole 500 mg 09/12/17 22:00 Flagyl - PO TID ANY Montelukast Sodium 10 mg 09/11/17 22:00 09/11/17 22:26 Singulair - PO 10 mg HS ANY Administration Morphine Sulfate 2 mg 09/12/17 12:36 Morphine Sulfate IM Q4H PRN PAIN 7-10 Nicotine 14 mg 09/12/17 10:00 09/12/17 10:29 Nicoderm Patch - TD 14 mg DAILY ANY Administration Ondansetron HCl 8 mg 09/12/17 11:42 Zofran - PO PRN PRN NAUSEA Pantoprazole Sodium 40 mg 09/12/17 12:10 09/12/17 12:28 Protonix - PO 40 mg DAILY ANY Administration Ranitidine HCl 150 mg 09/12/17 22:00 Zantac - PO BID ANY Simethicone 80 mg 09/12/17 11:45 Mylicon - PO PRN ANY Spironolactone 100 mg 09/13/17 10:00 Aldactone - PO DAILY ANY Sucralfate 1 gm 09/12/17 14:00 09/12/17 15:06 Carafate Oral Suspension - PO 1 gm TID ANY Administration 47 y/o patient with recently diagnosed breast cancer status post L lumpectomy/ ALND on 08/07/17, T2, N0, ER-/MD-/Her2-2+/FISH equivocaL. Also with cirrhosis/ fatty liver/portal HTN/anxiety/depression/chronic opiate dependence/psoriasis/ psoriatic arthritis. Patient comes in again with RUQ pain. Last HIDA scan does not show cystic duct obstruction. GB Ultrasound from 09/09: report reviewed Surgery c/s reviewed diarrhea: Stool studies noted: ID c/s Psoriasis: still active. s/p port placement CBC at her baseline
--- NOTE | 2017-09-12 19:31 | CON.GI ---
Consult Consult Specialty:: GI Reason for Consultation:: abdominal pain - History of Present Illness History of Present Illness: chart reviewed. Events noted. The patient was very recently discharged. See GI consult and endoscopy results from that admission. The patient is admitted for essentially the same symptoms she was here last time. 47 y/o patient with recently diagnosed breast cancer status post L lumpectomy/ ALND on 08/07/17, T2, N0, ER-/VA-/Her2-2+/FISH equivocaL. Also with cirrhosis/fatty liver /portal HTN/anxiety/depression/chronic opiate dependence/psoriasis/psoriatic arthritis. an EGD on last admission revealed an isolated fundal varix, mild portal hypertensive gastropathy. There were no significant findings to explain persistent epigastric pain. The surgery was consult for possible choledocholithiasis. Surgical evaluation noted. At the time of this encounter the patient is ambulating freely in the hallway. Does not appear toxic, in pain, or in distress. Reports multiple, watery bowel movements today. Tested positive for C. difficile antigen, not toxin. - History Source History Provided By: Patient, Medical Record, Caregiver - Past Medical History [employer]: Yes: Migraine, Other Cardio/Vascular: Yes: HTN Pulmonary: Yes: COPD Gastrointestinal: Yes: Gastritis Hepatobiliary: Yes: Cirrhosis Renal/: Yes: UTI ...LMP: 08/26/03 Rheumatology: Yes: Other (Psoriatic arthritis) Endocrine: Yes: Diabetes Mellitus Additional Medical History: Chronic lymphadenopathy. Anxiety disorder. Narcotic addiction - Past Surgical History Past Surgical History: Yes: Laminectomy (C spine discectomy and fusion [facility] 2005, repeat fusion 2006, cervical hardware removed at [facility] 2009), Tonsillectomy, Upper Endoscopy - Alcohol/Substance Use Hx Alcohol Use: No History of Substance Use: reports: Prescription - Smoking History Smoking history: Never smoked Have you smoked in the past 12 months: Yes Aproximately how many cigarettes per day: 20 - Social History Usual Living Arrangement: Alone ADL: Independent Occupation: disability History of Recent Travel: No Home Medications - Allergies Allergies/Adverse Reactions: Allergies Allergy/AdvReac Type Severity Reaction Status Date / Time nickel Allergy Intermediate Rash Verified 09/11/17 11:58 timolol Allergy Swelling Verified 09/11/17 11:58 titanium Allergy Verified 09/11/17 11:58 - Home Medications Home Medications: Ambulatory Orders Albuterol Sulfate [Proair Hfa] 8.5 gm IH PRN 08/04/17 Escitalopram Oxalate [Lexapro -] 20 mg PO BID 08/04/17 Esomeprazole Magnesium 40 mg PO DAILY 08/04/17 Furosemide [Lasix] 40 mg PO DAILY 08/04/17 Lactobacillus Acidophilus [Acidophilus] 1 tab PO BID 08/04/17 Lactulose 10 gm PO BID 08/04/17 Lorazepam [Ativan] 1 mg PO BID 08/04/17 Metformin HCl 500 mg PO BID 08/04/17 Metoprolol Tartrate 100 mg PO BID 08/04/17 Montelukast Sodium [Singulair] 10 mg PO HS 08/04/17 Ondansetron HCl [Zofran] 8 mg PO PRN PRN 08/04/17 Ranitidine [Zantac -] 150 mg PO BID 08/04/17 FENTANYL 100mcg PATCH [DURAGESIC 100mcg PATCH -] 2 each TD Q72H 08/31/17 Simethicone 80 mg PO PRN 08/31/17 Dicyclomine HCl [Bentyl -] 20 mg PO Q6H PRN #90 capsule 09/06/17 Hydrocortisone 1% Ointment [Hytone 1% Ointment -] 1 applic TP Q12H PRN tube Hydrocortisone 2.5% Lotion [Hytone 2.5% Lotion -] 1 applic TP Q12H PRN bottle 09/06/17 Nicotine Patch [Nicoderm Patch -] 14 mg TD DAILY patch 09/06/17 Spironolactone [Aldactone -] 100 mg PO DAILY #30 tablet 09/06/17 Sucralfate Oral Suspension [Carafate Oral Suspension -] 1 gm PO TID 30 Days ml 09/06/17 Family Disease History - Family Disease History Family Disease History: CA: Father (lung), Mother (lung) Review of Systems Findings/Remarks: As per H&P and HPI Physical Exam-GI Vital Signs: Vital Signs Temperature 97.9 F 09/12/17 18:00 Pulse Rate 57 L 09/12/17 18:00 Respiratory Rate 20 09/12/17 18:00 Blood Pressure 139/78 09/12/17 18:00 O2 Sat by Pulse Oximetry (%) 100 09/11/17 20:14 Constitutional: Yes: Well Nourished, No Distress, Calm Eyes: Yes: Conjunctiva Clear HENT: Yes: Atraumatic Neck: Yes: Supple Cardiovascular: Yes: Regular Rate and Rhythm Respiratory: Yes: Regular Gastrointestinal Inspection: No: Distention ...Auscultate: Yes: Normoactive Bowel Sounds ...Palpate: Yes: Soft. No: Firm/Rigid, Guarding, Hepatomegaly, Mass, Tenderness , Rebound Neurological: Yes: Alert, Oriented Labs: CBC, BMP 09/12/17 06:30 09/12/17 06:30 INR, PTT INR 1.20 (0.82-1.09) H 09/11/17 15:10 Laboratory Last Values WBC 4.6 K/mm3 (4.0-10.0) D 09/12/17 06:30 RBC 4.54 M/mm3 (3.60-5.2) 09/12/17 06:30 Hgb 11.5 GM/dL (10.7-15.3) D 09/12/17 06:30 Hct 34.4 % (32.4-45.2) D 09/12/17 06:30 MCV 75.7 fl (80-96) L 09/12/17 06:30 MCH 25.2 pg (25.7-33.7) L 09/12/17 06:30 MCHC 33.3 g/dl (32.0-36.0) 09/12/17 06:30 RDW 16.9 % (11.6-15.6) H 09/12/17 06:30 Plt Count 85 K/MM3 (134-434) L 09/12/17 06:30 MPV 9.6 fl (7.5-11.1) 09/12/17 06:30 Neutrophils % 52.9 % (42.8-82.8) D 09/12/17 06:30 Lymphocytes % 35.7 % (8-40) D 09/12/17 06:30 Monocytes % 8.6 % (3.8-10.2) 09/12/17 06:30 Eosinophils % 2.1 % (0-4.5) D 09/12/17 06:30 Basophils % 0.7 % (0-2.0) 09/12/17 06:30 Nucleated RBC % 0 % (0-0) 09/12/17 06:30 ESR 7 mm/hr (0-20) 09/12/17 06:30 PT with INR 13.60 SEC (9.7-13.0) H 09/11/17 15:10 INR 1.20 (0.82-1.09) H 09/11/17 15:10 Sodium 142 mmol/L (136-145) 09/12/17 06:30 Potassium 3.6 mmol/L (3.5-5.1) 09/12/17 06:30 Chloride 109 mmol/L (98-107) H 09/12/17 06:30 Carbon Dioxide 26 mmol/L (21-32) 09/12/17 06:30 Anion Gap 7 (8-16) L 09/12/17 06:30 BUN 18 mg/dL (7-18) 09/12/17 06:30 Creatinine 0.5 mg/dL (0.55-1.02) L 09/12/17 06:30 Creat Clearance w eGFR > 60 (>60) 09/12/17 06:30 POC Glucometer 74 UNITS (80-120) 09/12/17 16:46 Random Glucose 76 mg/dL (74-106) 09/12/17 06:30 Calcium 8.6 mg/dL (8.5-10.1) 09/12/17 06:30 Magnesium 2.2 mg/dL (1.8-2.4) 09/11/17 12:50 Total Bilirubin 0.8 mg/dL (0.2-1.0) 09/12/17 06:30 AST 27 U/L (15-37) 09/12/17 06:30 ALT 31 U/L (12-78) 09/12/17 06:30 Alkaline Phosphatase 104 U/L (45-117) 09/12/17 06:30 Total Protein 6.2 g/dl (6.4-8.2) L 09/12/17 06:30 Albumin 3.4 g/dl (3.4-5.0) 09/12/17 06:30 Lipase 239 U/L (73-393) 09/11/17 12:50 Urine Color Yellow 09/11/17 21:30 Urine Appearance Clear 09/11/17 21:30 Urine pH 6.0 (5.0-8.0) 09/11/17 21:30 Ur Specific King 1.015 (1.001-1.035) 09/11/17 21:30 Urine Protein Negative (NEGATIVE) 09/11/17 21: Urine Glucose (UA) Negative (NEGATIVE) 09/11/17 21: Urine Ketones Trace (NEGATIVE) H 09/11/17 21:30 Urine Blood Negative (NEGATIVE) 09/11/17 21: Urine Nitrite Negative (NEGATIVE) 09/11/17 21: Urine Bilirubin Negative (<2.0 mg/dL) 09/11/17 21: Urine Urobilinogen Normal mg/dL (0.2-1.0) 09/11/17 21:30 Ur Leukocyte Esterase Negative (NEGATIVE) 09/11/17 21:30 Blood Type B POSITIVE 09/11/17 15:10 Antibody Screen Negative 09/11/17 15:10 Problem List - Problems (1) Abdominal pain Code(s): R10.9 - UNSPECIFIED ABDOMINAL PAIN (2) Cholelithiasis Code(s): K80.20 - CALCULUS OF GALLBLADDER W/O CHOLECYSTITIS W/O OBSTRUCTION (3) Biliary sludge determined by ultrasound Code(s): K83.8 - OTHER SPECIFIED DISEASES OF BILIARY TRACT (4) Diarrhea Code(s): R19.7 - DIARRHEA, UNSPECIFIED Assessment/Plan 47-year-old female known to GI service from very recent admission presents with abdominal pain and now watery diarrhea. Tested positive for C. difficile antigen, not toxin. No leukocytosis. Normal BUN and creatinine. Normal liver chemistries. Surgical consult noted. daughter accused C. difficile associated colitis however given patient's underlying liver cirrhosis and antigen in stool and diarrhea with air on the side of treating C. difficile colitis. Consider Flagyl IV, cholestyramine twice a day, CBC, CMP in d I am and low residual diet. Observe. Discussed with the patient.
[2017-09-12] MEDS ORDERED: metroNIDAZOLE 250 MG TABLET PO SCH (22:00)
[2017-09-12] MEDS: MONTELUKAST NA 10 MG TABLET PO SCH (22:13)
[2017-09-12] MEDS: RANITIDINE HCL 150 MG TABLET (FP) PO SCH (22:13)
[2017-09-12] MEDS: LACTOBACILLUS ACIDOPHILUS 1 TABLET PO SCH (22:14)
[2017-09-12] MEDS: CHOLESTYRAMINE/SUCROSE 4 GM PACKET PO SCH (22:15)
[2017-09-13] MEDS: morphine SULFATE 4 MG/ML VIAL IM PRN ×2 (00:29→16:21)
[2017-09-13] MEDS: INSULIN SLIDING SCALE (NOVOLOG) 1 VIAL SQ SCH ×4 (06:47→22:46)
[2017-09-13] MEDS: SUCRALFATE 1 GM/10 ML UNIT DOSE CUPS PO SCH ×3 (06:47→22:41)
[2017-09-13 07:40] LABS: BASO % 0.8 % (0-2.0); HEMATOCRIT 38.3 % (32.4-45.2); HEMOGLOBIN 12.5 GM/dL (10.7-15.3); LYMPH % 40.6 % (8-40); MCH 25.1 pg (25.7-33.7); MCHC 32.8 g/dl (32.0-36.0); MEAN CELL VOLUME 76.6 fl (80-96); MEAN PLT VOLUME 9.7 fl (7.5-11.1); MONO % 8.1 % (3.8-10.2); NEUT % 47.5 % (42.8-82.8); PLATELET COUNT 123 K/MM3 (134-434); RDW 16.9 % (11.6-15.6); WHITE BLOOD COUNT 7.3 K/mm3 (4.0-10.0)
[2017-09-13 08:11] LABS: CHLORIDE 107 mmol/L (98-107); POTASSIUM 3.3 mmol/L (3.5-5.1); SODIUM 142 mmol/L (136-145)
--- NOTE | 2017-09-13 08:37 | PN ---
Progress Note, Physician Chief Complaint: still with diarrhea and gas occasional upper abdominal pain / cramps no blood, afebrile - Current Medication List Current Medications: Active Medications Albuterol Sulfate (Ventolin Hfa Inhaler -) puff IH PRN REPLACED BY [facility] Cholestyramine Resin (Questran Packet -) 4 gm PO BID REPLACED BY [facility] Last Admin: 09/12/17 22:15 Dose: 4 gm Dicyclomine HCl (Bentyl -) 20 mg PO Q6H PRN PRN Reason: ABDOMINAL PAIN Last Admin: 09/12/17 15:12 Dose: 20 mg Escitalopram Oxalate (Lexapro -) 20 mg PO BID REPLACED BY [facility] Last Admin: 09/12/17 22:13 Dose: 20 mg Fentanyl (Duragesic 100mcg Patch -) 2 patch TD Q72H REPLACED BY [facility] Hydrocortisone (Hytone 1% Ointment -) 1 applic TP Q12H PRN PRN Reason: FOR ITCHING Hydrocortisone (Hytone 2.5% Lotion -) 1 applic TP Q12H PRN PRN Reason: FOR ITCHING Metronidazole (Flagyl 500mg Premixed Ivpb -) 500 mg in 100 mls @ 100 mls/hr IVPB Q6H-IV REPLACED BY [facility] Last Admin: 09/13/17 03:41 Dose: 100 mls/hr Insulin Aspart (Novolog Vial Sliding Scale -) 1 vial SQ ACHS REPLACED BY [facility]; Protocol Last Admin: 09/13/17 06:47 Dose: Not Given Lactobacillus Acidophilus (Bacid -) 1 tab PO BID REPLACED BY [facility] Last Admin: 09/12/17 22:14 Dose: 1 tab Lorazepam (Ativan -) 1 mg PO BID REPLACED BY [facility] Last Admin: 09/12/17 22:13 Dose: 1 mg Metoprolol Tartrate (Lopressor -) 100 mg PO BID REPLACED BY [facility] Last Admin: 09/12/17 22:14 Dose: 100 mg Montelukast Sodium (Singulair -) 10 mg PO HS REPLACED BY [facility] Last Admin: 09/12/17 22:13 Dose: 10 mg Morphine Sulfate (Morphine Sulfate) 2 mg IM Q4H PRN PRN Reason: PAIN 7-10 Last Admin: 09/13/17 00:29 Dose: 2 mg Nicotine (Nicoderm Patch -) 14 mg TD DAILY REPLACED BY [facility] Last Admin: 09/12/17 10:29 Dose: 14 mg Ondansetron HCl (Zofran -) 8 mg PO PRN PRN PRN Reason: NAUSEA Pantoprazole Sodium (Protonix -) 40 mg PO DAILY REPLACED BY [facility] Last Admin: 09/12/17 12:28 Dose: 40 mg Ranitidine HCl (Zantac -) 150 mg PO BID REPLACED BY [facility] Last Admin: 09/12/17 22:13 Dose: 150 mg Simethicone (Mylicon -) 80 mg PO PRN REPLACED BY [facility] Spironolactone (Aldactone -) 100 mg PO DAILY REPLACED BY [facility] Sucralfate (Carafate Oral Suspension -) 1 gm PO TID REPLACED BY [facility] Last Admin: 09/13/17 06:47 Dose: Not Given - Objective Vital Signs: Vital Signs Temperature 97.8 F 09/13/17 05:45 Pulse Rate 60 09/13/17 05:45 Respiratory Rate 20 09/13/17 05:45 Blood Pressure 142/76 09/13/17 05:45 O2 Sat by Pulse Oximetry (%) 97 09/12/17 21:00 Constitutional: Yes: No Distress, Calm Eyes: Yes: Conjunctiva Clear HENT: Yes: Atraumatic Neck: Yes: Supple Cardiovascular: Yes: Regular Rate and Rhythm Respiratory: Yes: CTA Bilaterally Gastrointestinal: Yes: Soft, Tenderness (less). No: Distention Genitourinary: No: CVA Tenderness - Left, CVA Tenderness - Right, Hematuria Musculoskeletal: No: Joint Stiffness, Joint Swelling Extremities: No: Cold, Cool, Cyanosis Edema: No Integumentary: Yes: Rash (psoriasis). No: Venous Stasis Changes Neurological: Yes: WNL, Alert, Oriented ...Motor Strength: WNL Psychiatric: Yes: WNL, Alert, Oriented. No: Agitated, Suicidal Ideation Labs: CBC, BMP 09/13/17 06:00 09/13/17 06:00 INR, PTT INR 1.20 (0.82-1.09) H 09/11/17 15:10 - ....Imaging Other: Report Reviewed Assessment/Plan 47-year-old female h/o advanced liver cirrhosis, breast CA, presents to the emergency room with complaints of right upper quadrant pain, nausea vomiting intermittent diarrhea and inability to tolerate by mouth, weight loss. Gallstones but recent HIDA negative; s/p recent UTI; hypoK Cdiff still AG+ but Tox- Stool Cx/S Salmonella / Shigella GI and ONC and surgery f/u; ID eval repelet K f/u labs, blood cx falls DVT PFX pt is ambulatory; not on sq heparin b/o low PLT coagulopathy sec to advanced liver cirrhosis pt does not want teds, scds prognosis guarded d/w pt and staff see above
[2017-09-13 08:38] LABS: ALK PHOS 116 U/L (45-117); ANION GAP 7 (8-16); BILIRUBIN,TOTAL 0.7 mg/dL (0.2-1.0); BLOOD UREA NITROGEN 21 mg/dL (7-18); CALCIUM 8.9 mg/dL (8.5-10.1); CO2 28 mmol/L (21-32); CREATININE 0.6 mg/dL (0.55-1.02); GLUCOSE,RANDOM 82 mg/dL (74-106); SGOT/AST 23 U/L (15-37); SGPT/ALT 27 U/L (12-78); TOT PROT 7.1 g/dl (6.4-8.2)
[2017-09-13] MEDS ORDERED: FENTANYL PATCH WASTE TD PRN (10:00)
[2017-09-13] MEDS: LORazepam 1 MG TABLET PO SCH ×2 (10:01→22:43)
[2017-09-13] MEDS: NICOTINE 14 MG/24 HOURS TOPICAL PATCH TD SCH (10:01)
[2017-09-13] MEDS: PANTOPRAZOLE 40 MG TABLET (FP) PO SCH (10:01)
[2017-09-13] MEDS: SPIRONOLACTONE 25 MG TABLET (FP) PO SCH (10:01)
[2017-09-13] MEDS: METOPROLOL TARTRATE 50 MG TABLET (FP) PO SCH ×2 (10:01→22:42)
[2017-09-13] MEDS: RANITIDINE HCL 150 MG TABLET (FP) PO SCH ×2 (10:01→22:42)
[2017-09-13] MEDS: LACTOBACILLUS ACIDOPHILUS 1 TABLET PO SCH ×3 (10:01→22:41)
[2017-09-13] MEDS: ESCITALOPRAM OXALATE 20 MG TABLET (FP) PO SCH ×2 (10:01→22:40)
[2017-09-13] MEDS: fentaNYL 100mcg/hr PATCH.TD72 TD SCH (10:02)
[2017-09-13] MEDS ORDERED: PT OWN MED DRAWER 7, Y5N ONE ×2 (10:48→21:06)
[2017-09-13] MEDS: FENTANYL PATCH WASTE TD PRN ×2 (10:54→10:55)
[2017-09-13] MEDS: POTASSIUM CHLORIDE TABS 20 MEQ TABLET.ER (FP) PO ONE ×2 (10:54→11:01)
[2017-09-13] MEDS: CHOLESTYRAMINE/SUCROSE 4 GM PACKET PO SCH ×2 (10:55→22:42)
--- NOTE | 2017-09-13 11:34 | PN ---
Progress Note, Physician History of Present Illness: Stool appears to be positive for infectious etiology other than C. difficile. Identification pending. - Current Medication List Current Medications: Active Medications Albuterol Sulfate (Ventolin Hfa Inhaler -) puff IH PRN [facility] Cholestyramine Resin (Questran Packet -) 4 gm PO BID [facility] Last Admin: 09/13/17 10:55 Dose: 4 gm Dicyclomine HCl (Bentyl -) 20 mg PO Q6H PRN PRN Reason: ABDOMINAL PAIN Last Admin: 09/12/17 15:12 Dose: 20 mg Escitalopram Oxalate (Lexapro -) 20 mg PO BID [facility] Last Admin: 09/13/17 10:01 Dose: 20 mg Fentanyl (Duragesic 100mcg Patch -) 2 patch TD Q72H [facility] Last Admin: 09/13/17 10:02 Dose: 2 patch Hydrocortisone (Hytone 1% Ointment -) 1 applic TP Q12H PRN PRN Reason: FOR ITCHING Hydrocortisone (Hytone 2.5% Lotion -) 1 applic TP Q12H PRN PRN Reason: FOR ITCHING Metronidazole (Flagyl 500mg Premixed Ivpb -) 500 mg in 100 mls @ 100 mls/hr IVPB Q6H-IV [facility] Last Admin: 09/13/17 10:03 Dose: 100 mls/hr Insulin Aspart (Novolog Vial Sliding Scale -) 1 vial SQ ACHS [facility]; Protocol Last Admin: 09/13/17 11:13 Dose: Not Given Lactobacillus Acidophilus (Bacid -) 1 tab PO BID [facility] Last Admin: 09/13/17 10:03 Dose: 1 tab Lorazepam (Ativan -) 1 mg PO BID [facility] Last Admin: 09/13/17 10:01 Dose: 1 mg Metoprolol Tartrate (Lopressor -) 100 mg PO BID [facility] Last Admin: 09/13/17 10:01 Dose: 100 mg Miscellaneous (Duragesic Patch Waste) 1 each TD PRN PRN PRN Reason: WASTE Last Admin: 09/13/17 10:55 Dose: 1 each Montelukast Sodium (Singulair -) 10 mg PO HS [facility] Last Admin: 09/12/17 22:13 Dose: 10 mg Morphine Sulfate (Morphine Sulfate) 2 mg IM Q4H PRN PRN Reason: PAIN 7-10 Last Admin: 09/13/17 00:29 Dose: 2 mg Nicotine (Nicoderm Patch -) 14 mg TD DAILY [facility] Last Admin: 09/13/17 10:01 Dose: 14 mg Ondansetron HCl (Zofran -) 8 mg PO PRN PRN PRN Reason: NAUSEA Pantoprazole Sodium (Protonix -) 40 mg PO DAILY [facility] Last Admin: 09/13/17 10:01 Dose: 40 mg Potassium Chloride (Potassium Chloride Oral Liquid) 20 meq PO ONCE ONE Stop: 09/13/17 11:19 Ranitidine HCl (Zantac -) 150 mg PO BID [facility] Last Admin: 09/13/17 10:01 Dose: 150 mg Simethicone (Mylicon -) 80 mg PO PRN [facility] Spironolactone (Aldactone -) 100 mg PO DAILY [facility] Last Admin: 09/13/17 10:01 Dose: 100 mg Sucralfate (Carafate Oral Suspension -) 1 gm PO TID [facility] Last Admin: 09/13/17 06:47 Dose: Not Given - Objective Vital Signs: Vital Signs Temperature 97.8 F 09/13/17 05:45 Pulse Rate 60 09/13/17 05:45 Respiratory Rate 20 09/13/17 05:45 Blood Pressure 142/76 09/13/17 05:45 O2 Sat by Pulse Oximetry (%) 97 09/12/17 21:00 Labs: CBC, BMP 09/13/17 06:00 09/13/17 06:00 INR, PTT INR 1.20 (0.82-1.09) H 09/11/17 15:10 Problem List - Problems (1) Diarrhea Code(s): R19.7 - DIARRHEA, UNSPECIFIED Qualifiers: Diarrhea type: infectious Qualified Code(s): A09 - Infectious gastroenteritis and colitis, unspecified (2) Abdominal pain Code(s): R10.9 - UNSPECIFIED ABDOMINAL PAIN (3) Cholelithiasis Code(s): K80.20 - CALCULUS OF GALLBLADDER W/O CHOLECYSTITIS W/O OBSTRUCTION (4) Biliary sludge determined by ultrasound Code(s): K83.8 - OTHER SPECIFIED DISEASES OF BILIARY TRACT Assessment/Plan Infectious diarrhea. On Flagyl and cholestyramine. Will add fluoroquinolone. continue BRAT diet
[2017-09-13] MEDS ORDERED: CIPROFLOXACIN 200 MG/D5W 100 ML IVPB SCH (11:45)
[2017-09-13 12:30] VITALS: BMI 24.2
[2017-09-13] MEDS ORDERED: POTASSIUM CHLORIDE ORAL LIQUID 20 MEQ/15 ML PO ONE (12:30)
--- NOTE | 2017-09-13 12:43 | PN ---
Progress Note (short form) - Note Progress Note: ID Consult dictated C. difficile colitis Abdominal pain syndrome Refuses po vancomycin Continue IV flagyl
[2017-09-13] MEDS ORDERED: ONDANSETRON 4 MG TABLET PO ONE (13:07)
[2017-09-13] MEDS: ONDANSETRON 8 MG TABLET (FP) PO PRN (13:09)
--- NOTE | 2017-09-13 14:27 | CONS ---
DATE OF CONSULTATION: DATE OF DICTATION: 09/13/2017 HISTORY OF PRESENT ILLNESS: The patient is a 47-year-old female evaluated for positive C. difficile antigen and watery diarrhea. The patient has a history of abdominal pain syndrome. She has had multiple recent hospital admissions for abdominal pain. She most recently was at [facility] from August 27 through September 06. At that time, she was treated for suspected cholecystitis. Her hospital course at that time was complicated by urinary tract infection for which she was treated with Macrobid. She received a course of IV ceftriaxone and Flagyl and later switched to Macrobid. She now returns with complaint of recurrent right upper quadrant abdominal pain, nausea, vomiting, watery diarrhea, anorexia, and 40-pound weight loss. On initial assessment, a C. Difficile antigen was positive, toxin negative. At the present time, she complains of continued abdominal pain and watery bowel movements. She reports have 6 bowel movements today. She denies any blood per rectum. No associated fever or chills. A stool culture is also growing a Gram-negative which the lab suspects is normal intestinal isaac. PAST MEDICAL HISTORY: Positive for breast cancer status post lumpectomy in July 2017 (she is awaiting chemotherapy), history of cirrhosis, portal hypertension, chronic cholecystitis, psoriatic arthritis, pancreatitis, depression. PAST SURGICAL HISTORY: Status post cervical laminectomies, breast lumpectomy, port placement. ALLERGIES: To TIMOLOL. 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 SYSTEMS REVIEW: Neurologic: No loss of consciousness, seizure activity, or focal weakness. Cardiac: Negative for chest pain or palpitations. Respiratory: Negative for cough or sputum production. Gastrointestinal: As per HPI. Genitourinary: Negative for urinary tract infection. LABORATORY DATA: White count 7.3, hematocrit 38.3, platelet count 123. BUN 21, creatinine 0.6, ESR 7. Urine leukocyte esterase negative. Liver enzymes normal. Lipase 239. PHYSICAL EXAMINATION: General: She is awake and alert and ambulatory, in no acute distress. Vital signs: Temperature 97.8, blood pressure 142/76, pulse 60 and regular, respirations 20 per minute. HEENT: Sclerae anicteric. Heart: Heart sounds S1, S2. Lungs: Clear. Abdomen: Mild diffuse tenderness. No rebound or rigidity. Extremities: 1+ edema, positive psoriasis noted, lower extremities bilaterally. IMPRESSION: 1. Clostridium difficile colitis. 2. Abdominal pain syndrome. 3. Breast cancer. 4. Recurrent cholecystitis. Patient refuses treatment with oral vancomycin. Will continue IV Flagyl for treatment of C. difficile, although patient understands this is suboptimal therapy. She is unwilling to try oral vancomycin as she suspects it will exacerbate her abdominal pain. Advise GI and surgical followups. Thank you for the kind referral. JER WOMACK M.D. [id number]
--- NOTE | 2017-09-13 17:27 | PN ---
Progress Note (short form) - Note Progress Note: seen and examined still has "runs" of diarrhea as per her. Feels tired seen by ID/GI cor: RSR, No murmurs, No gallops Lungs: Clear to P&A Abd: Soft, Normal bowel sounds Ext:No significant edema left breast _well healed lumpectomy scar, post surgical changes seen. rt breast : with no palpable masses. Last Vital Signs Temp Pulse Resp BP Pulse Ox 98.0 F 64 20 137/71 97 09/13/17 15:08 09/13/17 15:08 09/13/17 15:08 09/13/17 15:08 09/13/17 09:00 CBC, BMP 09/13/17 06:00 09/13/17 06:00 Current Medications Generic Name Dose Route Start Last Admin Trade Name Freq PRN Reason Stop Dose Admin Albuterol Sulfate puff 09/11/17 21:45 Ventolin Hfa Inhaler - IH PRN ANY Cholestyramine Resin 4 gm 09/12/17 22:00 09/13/17 10:55 Questran Packet - PO 4 gm BID ANY Administration Dicyclomine HCl 20 mg 09/12/17 11:42 09/12/17 15:12 Bentyl - PO 20 mg Q6H PRN Administration ABDOMINAL PAIN Escitalopram Oxalate 20 mg 09/11/17 22:00 09/13/17 10:01 Lexapro - PO 20 mg BID ANY Administration Fentanyl 2 patch 09/13/17 10:00 09/13/17 10:02 Duragesic 100mcg Patch - TD 2 patch Q72H ANY Administration Hydrocortisone 1 applic 09/12/17 11:42 Hytone 1% Ointment - TP Q12H PRN FOR ITCHING Hydrocortisone 1 applic 09/12/17 11:42 Hytone 2.5% Lotion - TP Q12H PRN FOR ITCHING Metronidazole 500 mg in 100 mls @ 100 mls/hr 09/12/17 21:00 09/13/17 15:24 Flagyl 500mg Premixed Ivpb - IVPB 100 mls/hr Q6H-IV ANY Administration Insulin Aspart 1 vial 09/11/17 22:00 09/13/17 16:30 Novolog Vial Sliding Scale - SQ Not Given ACHS ANY Protocol Lactobacillus Acidophilus 1 tab 09/12/17 11:45 09/13/17 10:03 Bacid - PO 1 tab BID ANY Administration Lorazepam 1 mg 09/11/17 22:00 09/13/17 10:01 Ativan - PO 1 mg BID ANY Administration Metoprolol Tartrate 100 mg 09/12/17 11:45 09/13/17 10:01 Lopressor - PO 100 mg BID ANY Administration Miscellaneous 1 each 09/13/17 10:45 09/13/17 10:55 Duragesic Patch Waste TD 1 each PRN PRN Administration WASTE Montelukast Sodium 10 mg 09/11/17 22:00 09/12/17 22:13 Singulair - PO 10 mg HS ANY Administration Morphine Sulfate 2 mg 09/12/17 12:36 09/13/17 16:21 Morphine Sulfate IM 2 mg Q4H PRN Administration PAIN 7-10 Nicotine 14 mg 09/12/17 10:00 09/13/17 10:01 Nicoderm Patch - TD 14 mg DAILY ANY Administration Ondansetron HCl 8 mg 09/12/17 11:42 09/13/17 13:09 Zofran - PO 8 mg PRN PRN Administration NAUSEA Pantoprazole Sodium 40 mg 09/12/17 12:10 09/13/17 10:01 Protonix - PO 40 mg DAILY ANY Administration Ranitidine HCl 150 mg 09/12/17 22:00 09/13/17 10:01 Zantac - PO 150 mg BID ANY Administration Simethicone 80 mg 09/12/17 11:45 Mylicon - PO PRN ANY Spironolactone 100 mg 09/13/17 10:00 09/13/17 10:01 Aldactone - PO 100 mg DAILY ANY Administration Sucralfate 1 gm 09/12/17 14:00 09/13/17 13:09 Carafate Oral Suspension - PO 1 gm TID ANY Administration 47 y/o patient with recently diagnosed breast cancer status post L lumpectomy/ ALND on 08/07/17, T2, N0, ER-/SD-/Her2-2+/FISH equivocaL. Also with cirrhosis/ fatty liver/portal HTN/anxiety/depression/chronic opiate dependence/psoriasis/ psoriatic arthritis. Patient comes in again with RUQ pain. Last HIDA scan does not show cystic duct obstruction. Surgery c/s reviewed--non-emergent lap kiko as needed at a tertiary center diarrhea: Stool studies noted: ID c/s appreciated, on IV flagyl-- refuses PO vanc Psoriasis: still active. s/p port placement CBC at her baseline
[2017-09-13] MEDS: SIMETHICONE 80 MG TAB.CHEW (FP) PO SCH ×2 (18:26→22:43)
[2017-09-13] MEDS ORDERED: morphine SULFATE 4 MG/ML VIAL IVPB PRN (21:52)
[2017-09-13] MEDS: MONTELUKAST NA 10 MG TABLET PO SCH (22:41)
[2017-09-13] MEDS: morphine CARPU-JECT 2 MG/1 ML DISP.SYRIN IVPUSH PRN (23:35)
[2017-09-14] MEDS: SUCRALFATE 1 GM/10 ML UNIT DOSE CUPS PO SCH ×3 (05:50→22:13)
[2017-09-14] MEDS: INSULIN SLIDING SCALE (NOVOLOG) 1 VIAL SQ SCH ×4 (06:06→22:13)
--- NOTE | 2017-09-14 06:49 | PN ---
Progress Note, Physician Chief Complaint: still with diarrhea on ATB per ID & GI - Current Medication List Current Medications: Active Medications Albuterol Sulfate (Ventolin Hfa Inhaler -) puff IH PRN [facility] Cholestyramine Resin (Questran Packet -) 4 gm PO BID [facility] Last Admin: 09/13/17 22:42 Dose: 4 gm Dicyclomine HCl (Bentyl -) 20 mg PO Q6H PRN PRN Reason: ABDOMINAL PAIN Last Admin: 09/12/17 15:12 Dose: 20 mg Escitalopram Oxalate (Lexapro -) 20 mg PO BID [facility] Last Admin: 09/13/17 22:40 Dose: 20 mg Fentanyl (Duragesic 100mcg Patch -) 2 patch TD Q72H [facility] Last Admin: 09/13/17 10:02 Dose: 2 patch Hydrocortisone (Hytone 1% Ointment -) 1 applic TP Q12H PRN PRN Reason: FOR ITCHING Hydrocortisone (Hytone 2.5% Lotion -) 1 applic TP Q12H PRN PRN Reason: FOR ITCHING Metronidazole (Flagyl 500mg Premixed Ivpb -) 500 mg in 100 mls @ 100 mls/hr IVPB Q6H-IV [facility] Last Admin: 09/14/17 03:09 Dose: 100 mls/hr Insulin Aspart (Novolog Vial Sliding Scale -) 1 vial SQ ACHS [facility]; Protocol Last Admin: 09/14/17 06:06 Dose: Not Given Lactobacillus Acidophilus (Bacid -) 1 tab PO BID [facility] Last Admin: 09/13/17 22:41 Dose: 1 tab Lorazepam (Ativan -) 1 mg PO BID [facility] Last Admin: 09/13/17 22:43 Dose: 1 mg Metoprolol Tartrate (Lopressor -) 100 mg PO BID [facility] Last Admin: 09/13/17 22:42 Dose: 100 mg Miscellaneous (Duragesic Patch Waste) 1 each TD PRN PRN PRN Reason: WASTE Last Admin: 09/13/17 10:55 Dose: 1 each Montelukast Sodium (Singulair -) 10 mg PO HS [facility] Last Admin: 09/13/17 22:41 Dose: 10 mg Morphine Sulfate (Morphine Injection -) 2 mg IVPUSH Q6H PRN PRN Reason: PAIN LEVEL 7 - 10 Last Admin: 05/30/18 23:35 Dose: 2 mg Nicotine (Nicoderm Patch -) 14 mg TD DAILY [facility] Last Admin: 09/13/17 10:01 Dose: 14 mg Ondansetron HCl (Zofran -) 8 mg PO PRN PRN PRN Reason: NAUSEA Last Admin: 09/13/17 13:09 Dose: 8 mg Pantoprazole Sodium (Protonix -) 40 mg PO DAILY [facility] Last Admin: 09/13/17 10:01 Dose: 40 mg Ranitidine HCl (Zantac -) 150 mg PO BID [facility] Last Admin: 09/13/17 22:42 Dose: 150 mg Simethicone (Mylicon -) 80 mg PO PRN [facility] Last Admin: 09/13/17 22:43 Dose: 80 mg Spironolactone (Aldactone -) 100 mg PO DAILY [facility] Last Admin: 09/13/17 10:01 Dose: 100 mg Sucralfate (Carafate Oral Suspension -) 1 gm PO TID [facility] Last Admin: 09/14/17 05:50 Dose: 1 gm - Objective Vital Signs: Vital Signs Temperature 98.3 F 09/14/17 06:00 Pulse Rate 66 09/14/17 06:00 Respiratory Rate 20 09/14/17 06:00 Blood Pressure 128/84 09/14/17 06:00 O2 Sat by Pulse Oximetry (%) 97 09/13/17 21:00 Constitutional: Yes: No Distress, Calm Eyes: Yes: Conjunctiva Clear HENT: Yes: Atraumatic Neck: Yes: Supple Cardiovascular: Yes: Regular Rate and Rhythm Respiratory: Yes: CTA Bilaterally Gastrointestinal: Yes: Soft, Tenderness (less). No: Distention Genitourinary: No: CVA Tenderness - Left, CVA Tenderness - Right Musculoskeletal: No: Joint Stiffness, Joint Swelling Extremities: No: Cold, Cool, Cyanosis Edema: No Integumentary: Yes: Rash Neurological: Yes: WNL, Alert, Oriented ...Motor Strength: WNL Psychiatric: Yes: WNL, Alert, Oriented. No: Agitated, Suicidal Ideation Labs: CBC, BMP 09/13/17 06:00 09/13/17 06:00 INR, PTT INR 1.20 (0.82-1.09) H 09/11/17 15:10 - ....Imaging Other: Report Reviewed Assessment/Plan 47-year-old female h/o advanced liver cirrhosis, breast CA, presents to the emergency room with complaints of right upper quadrant pain, nausea vomiting intermittent diarrhea and inability to tolerate by mouth, weight loss. Gallstones but recent HIDA negative; s/p recent UTI; hypoK Cdiff still AG+ but Tox- Stool Cx/S Salmonella / Shigella GI ID f/u, ATB per ID & GI replete K f/u labs, blood cx falls DVT PFX pt is ambulatory; not on sq heparin b/o low PLT coagulopathy sec to advanced liver cirrhosis prognosis guarded d/w pt and staff see above
[2017-09-14] MEDS: NICOTINE 14 MG/24 HOURS TOPICAL PATCH TD SCH (09:40)
[2017-09-14] MEDS: RANITIDINE HCL 150 MG TABLET (FP) PO SCH ×2 (09:41→22:08)
[2017-09-14] MEDS: ESCITALOPRAM OXALATE 20 MG TABLET (FP) PO SCH ×2 (09:41→22:07)
[2017-09-14] MEDS: PANTOPRAZOLE 40 MG TABLET (FP) PO SCH (09:41)
[2017-09-14] MEDS: METOPROLOL TARTRATE 50 MG TABLET (FP) PO SCH ×2 (09:41→22:08)
[2017-09-14] MEDS: LORazepam 1 MG TABLET PO SCH ×2 (09:41→22:08)
[2017-09-14] MEDS: LACTOBACILLUS ACIDOPHILUS 1 TABLET PO SCH ×2 (09:41→22:07)
[2017-09-14] MEDS: SPIRONOLACTONE 25 MG TABLET (FP) PO SCH (09:41)
[2017-09-14] MEDS: CHOLESTYRAMINE/SUCROSE 4 GM PACKET PO SCH ×2 (09:42→22:09)
--- NOTE | 2017-09-14 13:29 | PN ---
Progress Note (short form) - Note Progress Note: seen and examined cor: RSR, No murmurs, No gallops Lungs: Clear to P&A Abd: Soft, Normal bowel sounds Ext:No significant edema left breast _well healed lumpectomy scar, post surgical changes seen. rt breast : with no palpable masses. L Last Vital Signs Temp Pulse Resp BP Pulse Ox 98.4 F 65 20 130/71 97 09/14/17 09:00 09/14/17 09:00 09/14/17 09:00 09/14/17 09:00 09/14/17 09:00 CBC, BMP 09/13/17 06:00 09/13/17 06:00 Current Medications Generic Name Dose Route Start Last Admin Trade Name Freq PRN Reason Stop Dose Admin Albuterol Sulfate puff 09/11/17 21:45 Ventolin Hfa Inhaler - IH PRN ANY Cholestyramine Resin 4 gm 09/12/17 22:00 09/14/17 09:42 Questran Packet - PO 4 gm BID ANY Administration Dicyclomine HCl 20 mg 09/12/17 11:42 09/12/17 15:12 Bentyl - PO 20 mg Q6H PRN Administration ABDOMINAL PAIN Escitalopram Oxalate 20 mg 09/11/17 22:00 09/14/17 09:41 Lexapro - PO 20 mg BID ANY Administration Fentanyl 2 patch 09/13/17 10:00 09/13/17 10:02 Duragesic 100mcg Patch - TD 2 patch Q72H ANY Administration Hydrocortisone 1 applic 09/12/17 11:42 Hytone 1% Ointment - TP Q12H PRN FOR ITCHING Hydrocortisone 1 applic 09/12/17 11:42 Hytone 2.5% Lotion - TP Q12H PRN FOR ITCHING Metronidazole 500 mg in 100 mls @ 100 mls/hr 09/12/17 21:00 09/14/17 08:39 Flagyl 500mg Premixed Ivpb - IVPB 100 mls/hr Q6H-IV ANY Administration Insulin Aspart 1 vial 09/11/17 22:00 09/14/17 11:24 Novolog Vial Sliding Scale - SQ Not Given ACHS ANY Protocol Lactobacillus Acidophilus 1 tab 09/12/17 11:45 09/14/17 09:41 Bacid - PO 1 tab BID ANY Administration Lorazepam 1 mg 09/11/17 22:00 09/14/17 09:41 Ativan - PO 1 mg BID ANY Administration Metoprolol Tartrate 100 mg 09/12/17 11:45 09/14/17 09:41 Lopressor - PO 100 mg BID ANY Administration Miscellaneous 1 each 09/13/17 10:45 09/13/17 10:55 Duragesic Patch Waste TD 1 each PRN PRN Administration WASTE Montelukast Sodium 10 mg 09/11/17 22:00 09/13/17 22:41 Singulair - PO 10 mg HS ANY Administration Morphine Sulfate 2 mg 09/13/17 21:52 09/13/17 23:35 Morphine Injection - IVPUSH 2 mg Q6H PRN Administration PAIN LEVEL 7 - 10 Nicotine 14 mg 09/12/17 10:00 09/14/17 09:40 Nicoderm Patch - TD 14 mg DAILY ANY Administration Ondansetron HCl 8 mg 09/12/17 11:42 09/13/17 13:09 Zofran - PO 8 mg PRN PRN Administration NAUSEA Pantoprazole Sodium 40 mg 09/12/17 12:10 09/14/17 09:41 Protonix - PO 40 mg DAILY ANY Administration Ranitidine HCl 150 mg 09/12/17 22:00 09/14/17 09:41 Zantac - PO 150 mg BID ANY Administration Simethicone 80 mg 09/12/17 11:45 09/13/17 22:43 Mylicon - PO 80 mg PRN ANY Administration Spironolactone 100 mg 09/13/17 10:00 09/14/17 09:41 Aldactone - PO 100 mg DAILY ANY Administration Sucralfate 1 gm 09/12/17 14:00 09/14/17 05:50 Carafate Oral Suspension - PO 1 gm TID ANY Administration 47 y/o patient with recently diagnosed breast cancer status post L lumpectomy/ ALND on 08/07/17, T2, N0, ER-/OK-/Her2-2+/FISH equivocaL. Also with cirrhosis/ fatty liver/portal HTN/anxiety/depression/chronic opiate dependence/psoriasis/ psoriatic arthritis. Patient comes in again with RUQ pain. Last HIDA scan does not show cystic duct obstruction. diarrhea: + Cdiff ag appreciate GI/ID input On Flagyl/quinolone now monitor CBC. port can be accessed as needed. d/w RN
[2017-09-14] MEDS: morphine CARPU-JECT 2 MG/1 ML DISP.SYRIN IVPUSH PRN ×2 (14:12→22:12)
[2017-09-14] MEDS: SIMETHICONE 80 MG TAB.CHEW (FP) PO SCH (14:23)
[2017-09-14] MEDS: MONTELUKAST NA 10 MG TABLET PO SCH (22:07)
--- NOTE | 2017-09-15 06:24 | PN ---
Progress Note, Physician Chief Complaint: in bed less diarrhea today bjt feels very weak; ate better d/w pt to switch po antibiotics, flagyl or vanco po, but pt said she can not take po ATB she tried in the past and she has vomiting (despite having zofran prn) and abdominal pain - will ask ID and GI for further input - Current Medication List Current Medications: Active Medications Albuterol Sulfate (Ventolin Hfa Inhaler -) puff IH PRN [facility] Cholestyramine Resin (Questran Packet -) 4 gm PO BID [facility] Last Admin: 09/14/17 22:09 Dose: 4 gm Dicyclomine HCl (Bentyl -) 20 mg PO Q6H PRN PRN Reason: ABDOMINAL PAIN Last Admin: 09/12/17 15:12 Dose: 20 mg Escitalopram Oxalate (Lexapro -) 20 mg PO BID [facility] Last Admin: 09/14/17 22:07 Dose: 20 mg Fentanyl (Duragesic 100mcg Patch -) 2 patch TD Q72H [facility] Last Admin: 09/13/17 10:02 Dose: 2 patch Hydrocortisone (Hytone 1% Ointment -) 1 applic TP Q12H PRN PRN Reason: FOR ITCHING Hydrocortisone (Hytone 2.5% Lotion -) 1 applic TP Q12H PRN PRN Reason: FOR ITCHING Metronidazole (Flagyl 500mg Premixed Ivpb -) 500 mg in 100 mls @ 100 mls/hr IVPB Q6H-IV [facility] Last Admin: 09/15/17 03:03 Dose: 100 mls/hr Insulin Aspart (Novolog Vial Sliding Scale -) 1 vial SQ ACHS [facility]; Protocol Last Admin: 09/14/17 22:13 Dose: Not Given Lactobacillus Acidophilus (Bacid -) 1 tab PO BID [facility] Last Admin: 09/14/17 22:07 Dose: 1 tab Lorazepam (Ativan -) 1 mg PO BID [facility] Last Admin: 09/14/17 22:08 Dose: 1 mg Metoprolol Tartrate (Lopressor -) 100 mg PO BID [facility] Last Admin: 09/14/17 22:08 Dose: 100 mg Miscellaneous (Duragesic Patch Waste) 1 each TD PRN PRN PRN Reason: WASTE Last Admin: 09/13/17 10:55 Dose: 1 each Montelukast Sodium (Singulair -) 10 mg PO HS [facility] Last Admin: 09/14/17 22:07 Dose: 10 mg Morphine Sulfate (Morphine Injection -) 2 mg IVPUSH Q6H PRN PRN Reason: PAIN LEVEL 7 - 10 Last Admin: 09/14/17 22:12 Dose: 2 mg Nicotine (Nicoderm Patch -) 14 mg TD DAILY [facility] Last Admin: 09/14/17 09:40 Dose: 14 mg Ondansetron HCl (Zofran -) 8 mg PO PRN PRN PRN Reason: NAUSEA Last Admin: 09/13/17 13:09 Dose: 8 mg Pantoprazole Sodium (Protonix -) 40 mg PO DAILY [facility] Last Admin: 09/14/17 09:41 Dose: 40 mg Ranitidine HCl (Zantac -) 150 mg PO BID [facility] Last Admin: 09/14/17 22:08 Dose: 150 mg Simethicone (Mylicon -) 80 mg PO PRN [facility] Last Admin: 09/14/17 14:23 Dose: 80 mg Spironolactone (Aldactone -) 100 mg PO DAILY [facility] Last Admin: 09/14/17 09:41 Dose: 100 mg Sucralfate (Carafate Oral Suspension -) 1 gm PO TID [facility] Last Admin: 09/14/17 22:13 Dose: 1 gm - Objective Vital Signs: Vital Signs Temperature 98.1 F 09/15/17 05:55 Pulse Rate 75 09/15/17 05:55 Respiratory Rate 20 09/15/17 05:55 Blood Pressure 153/87 09/15/17 05:55 O2 Sat by Pulse Oximetry (%) 97 09/14/17 21:00 Constitutional: Yes: No Distress, Calm Eyes: Yes: Conjunctiva Clear HENT: Yes: Atraumatic Neck: Yes: Supple Cardiovascular: Yes: Regular Rate and Rhythm Respiratory: Yes: CTA Bilaterally Gastrointestinal: Yes: Soft, Tenderness (epigastric). No: Distention Genitourinary: No: CVA Tenderness - Left, CVA Tenderness - Right Musculoskeletal: No: Joint Stiffness, Joint Swelling Extremities: No: Cold, Cool, Cyanosis Edema: No Integumentary: No: Venous Stasis Changes Neurological: Yes: WNL, Alert, Oriented ...Motor Strength: WNL Psychiatric: Yes: WNL, Alert, Oriented. No: Agitated, Suicidal Ideation Labs: CBC, BMP 09/13/17 06:00 09/13/17 06:00 INR, PTT INR 1.20 (0.82-1.09) H 09/11/17 15:10 - ....Imaging Other: Report Reviewed Assessment/Plan 47-year-old female h/o advanced liver cirrhosis, breast CA, presents to the emergency room with complaints of right upper quadrant pain, nausea vomiting intermittent diarrhea and inability to tolerate by mouth, weight loss. Gallstones but recent HIDA negative; s/p recent UTI; hypoK Cdiff still AG+ but Tox- Stool Cx/S Salmonella / Shigella GI ID f/u, pt said she can not take po ATB will continue IV for now and have ID & GI f/u f/u labs, blood cx falls DVT PFX pt is ambulatory; not on sq heparin b/o low PLT coagulopathy sec to advanced liver cirrhosis prognosis guarded d/w pt and staff see above
[2017-09-15] MEDS: INSULIN SLIDING SCALE (NOVOLOG) 1 VIAL SQ SCH ×4 (06:30→23:00)
[2017-09-15] MEDS: SUCRALFATE 1 GM/10 ML UNIT DOSE CUPS PO SCH ×3 (06:31→22:47)
[2017-09-15 07:51] LABS: BASO % 0.7 % (0-2.0); EOS % 2.2 % (0-4.5); HEMATOCRIT 31.8 % (32.4-45.2); HEMOGLOBIN 10.6 GM/dL (10.7-15.3); LYMPH % 42.9 % (8-40); MCH 25.5 pg (25.7-33.7); MCHC 33.4 g/dl (32.0-36.0); MEAN CELL VOLUME 76.5 fl (80-96); MONO % 10.4 % (3.8-10.2); NEUT % 43.8 % (42.8-82.8); PLATELET COUNT 80 K/MM3 (134-434); RBC 4.16 M/mm3 (3.60-5.2); WHITE BLOOD COUNT 2.7 K/mm3 (4.0-10.0)
[2017-09-15] MEDS ORDERED: ONDANSETRON 4 MG TABLET PO ONE ×2 (08:06→15:06)
[2017-09-15] MEDS: ONDANSETRON 8 MG TABLET (FP) PO PRN (08:10)
[2017-09-15 08:33] LABS: CHLORIDE 109 mmol/L (98-107); POTASSIUM 3.5 mmol/L (3.5-5.1); SODIUM 145 mmol/L (136-145)
[2017-09-15 09:34] LABS: ALBUMIN 3.4 g/dl (3.4-5.0); ALK PHOS 89 U/L (45-117); ANION GAP 5 (8-16); BILIRUBIN,TOTAL 0.9 mg/dL (0.2-1.0); BLOOD UREA NITROGEN 3 mg/dL (7-18); CALCIUM 8.4 mg/dL (8.5-10.1); CO2 31 mmol/L (21-32); CREATININE 0.5 mg/dL (0.55-1.02); GLUCOSE,RANDOM 88 mg/dL (74-106); SGOT/AST 15 U/L (15-37); SGPT/ALT 20 U/L (12-78); TOT PROT 5.9 g/dl (6.4-8.2)
[2017-09-15 09:48] LABS: PLATELET ESTIMATE DECREASED
[2017-09-15] MEDS ORDERED: PT OWN MED DRAWER 7, Y5N ONE ×3 (10:06→22:42)
[2017-09-15] MEDS: ESCITALOPRAM OXALATE 20 MG TABLET (FP) PO SCH ×2 (10:09→22:48)
[2017-09-15] MEDS: PANTOPRAZOLE 40 MG TABLET (FP) PO SCH (10:10)
[2017-09-15] MEDS: LACTOBACILLUS ACIDOPHILUS 1 TABLET PO SCH ×2 (10:10→22:47)
[2017-09-15] MEDS: LORazepam 1 MG TABLET PO SCH ×2 (10:10→22:48)
[2017-09-15] MEDS: RANITIDINE HCL 150 MG TABLET (FP) PO SCH ×2 (10:10→22:48)
[2017-09-15] MEDS: METOPROLOL TARTRATE 50 MG TABLET (FP) PO SCH ×2 (10:10→22:48)
[2017-09-15] MEDS: SPIRONOLACTONE 25 MG TABLET (FP) PO SCH (10:10)
[2017-09-15] MEDS: NICOTINE 14 MG/24 HOURS TOPICAL PATCH TD SCH (10:10)
[2017-09-15] MEDS: CHOLESTYRAMINE/SUCROSE 4 GM PACKET PO SCH ×2 (10:12→22:48)
[2017-09-15] MEDS ORDERED: INSULIN (NOVOLOG) ASPART 100 UNITS/ML 10ML VIAL ONE (11:13)
[2017-09-15] MEDS: amLODIPine BESYLATE 2.5 MG TABLET (FP) PO SCH (11:32)
--- NOTE | 2017-09-15 13:48 | PN ---
Progress Note, Physician History of Present Illness: Clinically the same. No longer has diarrhea. - Current Medication List Current Medications: Active Medications Albuterol Sulfate (Ventolin Hfa Inhaler -) puff IH PRN [facility] Amlodipine Besylate (Norvasc -) 2.5 mg PO DAILY [facility] Last Admin: 09/15/17 11:32 Dose: 2.5 mg Cholestyramine Resin (Questran Packet -) 4 gm PO BID [facility] Last Admin: 09/15/17 10:12 Dose: 4 gm Dicyclomine HCl (Bentyl -) 20 mg PO Q6H PRN PRN Reason: ABDOMINAL PAIN Last Admin: 09/12/17 15:12 Dose: 20 mg Escitalopram Oxalate (Lexapro -) 20 mg PO BID [facility] Last Admin: 09/15/17 10:09 Dose: 20 mg Fentanyl (Duragesic 100mcg Patch -) 2 patch TD Q72H [facility] Last Admin: 09/13/17 10:02 Dose: 2 patch Hydrocortisone (Hytone 1% Ointment -) 1 applic TP Q12H PRN PRN Reason: FOR ITCHING Hydrocortisone (Hytone 2.5% Lotion -) 1 applic TP Q12H PRN PRN Reason: FOR ITCHING Metronidazole (Flagyl 500mg Premixed Ivpb -) 500 mg in 100 mls @ 100 mls/hr IVPB Q6H-IV [facility] Last Admin: 09/15/17 10:10 Dose: 100 mls/hr Insulin Aspart (Novolog Vial Sliding Scale -) 1 vial SQ ACHS [facility]; Protocol Last Admin: 09/15/17 11:33 Dose: Not Given Lactobacillus Acidophilus (Bacid -) 1 tab PO BID [facility] Last Admin: 09/15/17 10:10 Dose: 1 tab Lorazepam (Ativan -) 1 mg PO BID [facility] Last Admin: 09/15/17 10:10 Dose: 1 mg Metoprolol Tartrate (Lopressor -) 100 mg PO BID [facility] Last Admin: 09/15/17 10:10 Dose: 100 mg Miscellaneous (Duragesic Patch Waste) 1 each TD PRN PRN PRN Reason: WASTE Last Admin: 09/13/17 10:55 Dose: 1 each Montelukast Sodium (Singulair -) 10 mg PO HS [facility] Last Admin: 09/14/17 22:07 Dose: 10 mg Morphine Sulfate (Morphine Injection -) 2 mg IVPUSH Q6H PRN PRN Reason: PAIN LEVEL 7 - 10 Last Admin: 09/14/17 22:12 Dose: 2 mg Nicotine (Nicoderm Patch -) 14 mg TD DAILY [facility] Last Admin: 09/15/17 10:10 Dose: 14 mg Ondansetron HCl (Zofran -) 8 mg PO PRN PRN PRN Reason: NAUSEA Last Admin: 09/15/17 08:10 Dose: 8 mg Pantoprazole Sodium (Protonix -) 40 mg PO DAILY [facility] Last Admin: 09/15/17 10:10 Dose: 40 mg Ranitidine HCl (Zantac -) 150 mg PO BID [facility] Last Admin: 09/15/17 10:10 Dose: 150 mg Simethicone (Mylicon -) 80 mg PO PRN [facility] Last Admin: 09/14/17 14:23 Dose: 80 mg Spironolactone (Aldactone -) 100 mg PO DAILY [facility] Last Admin: 09/15/17 10:10 Dose: 100 mg Sucralfate (Carafate Oral Suspension -) 1 gm PO TID [facility] Last Admin: 09/15/17 06:31 Dose: 1 gm - Objective Vital Signs: Vital Signs Temperature 98.1 F 09/15/17 09:00 Pulse Rate 63 09/15/17 09:00 Respiratory Rate 20 09/15/17 09:00 Blood Pressure 165/75 09/15/17 09:00 O2 Sat by Pulse Oximetry (%) 97 09/15/17 09:00 Constitutional: Yes: Calm, Anxious Eyes: Yes: Conjunctiva Clear HENT: Yes: Atraumatic Neck: Yes: Supple Gastrointestinal: Yes: Soft. No: Melena, Rectal Bleeding, Tenderness, Vomiting Neurological: Yes: Alert, Oriented Labs: CBC, BMP 09/15/17 06:30 09/15/17 06:30 INR, PTT INR 1.20 (0.82-1.09) H 09/11/17 15:10 Laboratory Last Values WBC 2.7 K/mm3 (4.0-10.0) L D 09/15/17 06:30 RBC 4.16 M/mm3 (3.60-5.2) 09/15/17 06:30 Hgb 10.6 GM/dL (10.7-15.3) L D 09/15/17 06:30 Hct 31.8 % (32.4-45.2) L D 09/15/17 06:30 MCV 76.5 fl (80-96) L 09/15/17 06:30 MCH 25.5 pg (25.7-33.7) L 09/15/17 06:30 MCHC 33.4 g/dl (32.0-36.0) 09/15/17 06:30 RDW 17.0 % (11.6-15.6) H 09/15/17 06:30 Plt Count 80 K/MM3 (134-434) L D 09/15/17 06:30 MPV 10.0 fl (7.5-11.1) 09/15/17 06:30 Neutrophils % 43.8 % (42.8-82.8) 09/15/17 06:30 Lymphocytes % 42.9 % (8-40) H 09/15/17 06:30 Monocytes % 10.4 % (3.8-10.2) H 09/15/17 06:30 Eosinophils % 2.2 % (0-4.5) 09/15/17 06:30 Basophils % 0.7 % (0-2.0) 09/15/17 06:30 Nucleated RBC % 0 % (0-0) 09/15/17 06:30 Platelet Estimate Decreased 09/15/17 06:30 ESR 7 mm/hr (0-20) 09/12/17 06:30 PT with INR 13.60 SEC (9.7-13.0) H 09/11/17 15:10 INR 1.20 (0.82-1.09) H 09/11/17 15:10 Sodium 145 mmol/L (136-145) 09/15/17 06:30 Potassium 3.5 mmol/L (3.5-5.1) 09/15/17 06:30 Chloride 109 mmol/L (98-107) H 09/15/17 06:30 Carbon Dioxide 31 mmol/L (21-32) 09/15/17 06:30 Anion Gap 5 (8-16) L 09/15/17 06:30 BUN 3 mg/dL (7-18) L 09/15/17 06:30 Creatinine 0.5 mg/dL (0.55-1.02) L 09/15/17 06:30 Creat Clearance w eGFR > 60 (>60) 09/15/17 06:30 POC Glucometer 90 UNITS (80-120) 09/15/17 05:43 Random Glucose 88 mg/dL (74-106) 09/15/17 06:30 Calcium 8.4 mg/dL (8.5-10.1) L 09/15/17 06:30 Magnesium 2.2 mg/dL (1.8-2.4) 09/11/17 12:50 Total Bilirubin 0.9 mg/dL (0.2-1.0) D 09/15/17 06:30 AST 15 U/L (15-37) 09/15/17 06:30 ALT 20 U/L (12-78) 09/15/17 06:30 Alkaline Phosphatase 89 U/L (45-117) 09/15/17 06:30 Troponin I < 0.02 ng/ml (0.00-0.05) 09/13/17 06:00 Total Protein 5.9 g/dl (6.4-8.2) L 09/15/17 06:30 Albumin 3.4 g/dl (3.4-5.0) 09/15/17 06:30 Lipase 239 U/L (73-393) 09/11/17 12:50 Urine Color Yellow 09/11/17 21:30 Urine Appearance Clear 09/11/17 21:30 Urine pH 6.0 (5.0-8.0) 09/11/17 21:30 Ur Specific [place] 1.015 (1.001-1.035) 09/11/17 21:30 Urine Protein Negative (NEGATIVE) 09/11/17 21:30 Urine Glucose (UA) Negative (NEGATIVE) 09/11/17 21:30 Urine Ketones Trace (NEGATIVE) H 09/11/17 21:30 Urine Blood Negative (NEGATIVE) 09/11/17 21:30 Urine Nitrite Negative (NEGATIVE) 09/11/17 21:30 Urine Bilirubin Negative (<2.0 mg/dL) 09/11/17 21:30 Urine Urobilinogen Normal mg/dL (0.2-1.0) 09/11/17 21:30 Ur Leukocyte Esterase Negative (NEGATIVE) 09/11/17 21:30 Stool O & P Wet [place] (.) 09/11/17 21:30 O & P Permanent Slide Final report (.) 09/11/17 21:30 Blood Type B POSITIVE 09/11/17 15:10 Antibody Screen Negative 09/11/17 15:10 Problem List - Problems (1) Diarrhea Code(s): R19.7 - DIARRHEA, UNSPECIFIED Qualifiers: Diarrhea type: infectious Qualified Code(s): A09 - Infectious gastroenteritis and colitis, unspecified (2) Abdominal pain Code(s): R10.9 - UNSPECIFIED ABDOMINAL PAIN (3) Cholelithiasis Code(s): K80.20 - CALCULUS OF GALLBLADDER W/O CHOLECYSTITIS W/O OBSTRUCTION (4) Biliary sludge determined by ultrasound Code(s): K83.8 - OTHER SPECIFIED DISEASES OF BILIARY TRACT Assessment/Plan Complete course of Flagyl as per ID. Probiotic 2 weeks after completing antibiotics. Diet as tolerated. Avoid dairy and high fat
[2017-09-15] MEDS: SIMETHICONE 80 MG TAB.CHEW (FP) PO SCH (14:22)
[2017-09-15] MEDS: morphine CARPU-JECT 2 MG/1 ML DISP.SYRIN IVPUSH PRN ×2 (14:57→22:48)
[2017-09-15] MEDS: ONDANSETRON 4 MG TABLET PO PRN (17:33)
--- NOTE | 2017-09-15 18:46 | PN ---
Progress Note (short form) - Note Progress Note: Patient seen and examined diarrhea resolved Last Vital Signs Temp Pulse Resp BP Pulse Ox 98.4 F 62 20 158/77 97 09/15/17 14:58 09/15/17 15:00 09/15/17 14:58 09/15/17 15:00 09/15/17 09:00 Cor: RSR, No murmurs, No gallops Lungs: Clear to P&A Abd: Soft, Normal bowel sounds, No organomegaly Ext:No significant edema Abnormal Lab Results 09/15/17 09/15/17 06:30 06:30 WBC 2.7 L D Hgb 10.6 L D Hct 31.8 L D MCV 76.5 L MCH 25.5 L RDW 17.0 H Plt Count 80 L D Lymphocytes % 42.9 H Monocytes % 10.4 H Chloride 109 H Anion Gap 5 L BUN 3 L Creatinine 0.5 L Calcium 8.4 L Total Protein 5.9 L Home Medication List Medication Instructions Recorded Confirmed Type Albuterol Sulfate [Proair Hfa] 8.5 gm IH PRN 08/04/17 09/11/17 History Escitalopram Oxalate [Lexapro -] 20 mg PO BID 08/04/17 09/11/17 History Esomeprazole Magnesium 40 mg PO DAILY 08/04/17 09/11/17 History Furosemide [Lasix] 40 mg PO DAILY 08/04/17 09/11/17 History Lactobacillus Acidophilus 1 tab PO BID 08/04/17 09/11/17 History [Acidophilus] Lactulose 10 gm PO BID 08/04/17 09/11/17 History Lorazepam [Ativan] 1 mg PO BID 08/04/17 09/11/17 History Metformin HCl 500 mg PO BID 08/04/17 09/11/17 History Metoprolol Tartrate 100 mg PO BID 08/04/17 09/11/17 History Montelukast Sodium [Singulair] 10 mg PO HS 08/04/17 09/11/17 History Ondansetron HCl [Zofran] 8 mg PO PRN PRN 08/04/17 09/11/17 History Ranitidine [Zantac -] 150 mg PO BID 08/04/17 09/11/17 History FENTANYL 100mcg PATCH [DURAGESIC 2 each TD Q72H 08/31/17 09/11/17 History 100mcg PATCH -] Simethicone 80 mg PO PRN 08/31/17 09/11/17 History Active Medications Generic Name Dose Route Start Last Admin Trade Name Min PRN Reason Stop Dose Admin Albuterol Sulfate puff 09/11/17 21:45 Ventolin Hfa Inhaler - IH PRN ANY Amlodipine Besylate 2.5 mg 09/15/17 11:00 09/15/17 11:32 Norvasc - PO 2.5 mg DAILY ANY Administration Cholestyramine Resin 4 gm 09/12/17 22:00 09/15/17 10:12 Questran Packet - PO 4 gm BID ANY Administration Dicyclomine HCl 20 mg 09/12/17 11:42 09/12/17 15:12 Bentyl - PO 20 mg Q6H PRN Administration ABDOMINAL PAIN Escitalopram Oxalate 20 mg 09/11/17 22:00 09/15/17 10:09 Lexapro - PO 20 mg BID ANY Administration Fentanyl 2 patch 09/13/17 10:00 09/13/17 10:02 Duragesic 100mcg Patch - TD 2 patch Q72H ANY Administration Hydrocortisone 1 applic 09/12/17 11:42 Hytone 1% Ointment - TP Q12H PRN FOR ITCHING Hydrocortisone 1 applic 09/12/17 11:42 Hytone 2.5% Lotion - TP Q12H PRN FOR ITCHING Metronidazole 500 mg in 100 mls @ 100 mls/hr 09/12/17 21:00 09/15/17 14:14 Flagyl 500mg Premixed Ivpb - IVPB 100 mls/hr Q6H-IV ANY Administration Insulin Aspart 1 vial 09/11/17 22:00 09/15/17 17:21 Novolog Vial Sliding Scale - SQ Not Given ACHS ANY Protocol Lactobacillus Acidophilus 1 tab 09/12/17 11:45 09/15/17 10:10 Bacid - PO 1 tab BID ANY Administration Lorazepam 1 mg 09/11/17 22:00 09/15/17 10:10 Ativan - PO 1 mg BID ANY Administration Metoprolol Tartrate 100 mg 09/12/17 11:45 09/15/17 10:10 Lopressor - PO 100 mg BID ANY Administration Miscellaneous 1 each 09/13/17 10:45 09/13/17 10:55 Duragesic Patch Waste TD 1 each PRN PRN Administration WASTE Montelukast Sodium 10 mg 09/11/17 22:00 09/14/17 22:07 Singulair - PO 10 mg HS ANY Administration Morphine Sulfate 2 mg 09/13/17 21:52 09/15/17 14:57 Morphine Injection - IVPUSH 2 mg Q6H PRN Administration PAIN LEVEL 7 - 10 Nicotine 14 mg 09/12/17 10:00 09/15/17 10:10 Nicoderm Patch - TD 14 mg DAILY ANY Administration Ondansetron HCl 8 mg 09/15/17 15:34 09/15/17 17:33 Zofran - PO 8 mg Q8H PRN Administration FOR ITCHING Pantoprazole Sodium 40 mg 09/12/17 12:10 09/15/17 10:10 Protonix - PO 40 mg DAILY ANY Administration Ranitidine HCl 150 mg 09/12/17 22:00 09/15/17 10:10 Zantac - PO 150 mg BID ANY Administration Simethicone 80 mg 09/12/17 11:45 09/15/17 14:22 Mylicon - PO 80 mg PRN ANY Administration Spironolactone 100 mg 09/13/17 10:00 09/15/17 10:10 Aldactone - PO 100 mg DAILY ANY Administration Sucralfate 1 gm 09/12/17 14:00 09/15/17 14:14 Carafate Oral Suspension - PO 1 gm TID ANY Administration A/P 47 y/o patient with riple - breast cancer, s/p surgery, cirrhosis/portal htn, c.diff on iv flagyl to complete antibiotic course to considerweekly taxol , once c.diff adequately treated
[2017-09-15] MEDS: DICYCLOMINE HCL 10 MG CAPSULE PO PRN (22:47)
[2017-09-15] MEDS: MONTELUKAST NA 10 MG TABLET PO SCH (22:48)
--- NOTE | 2017-09-16 06:55 | PN ---
Progress Note, Physician Chief Complaint: no BM today but still with abdominal pain epigastric and RUQ on/off; afebrile; yes nausea on/off on IV zofran prn IV falgyl; said she can not take any po antibiotics - Current Medication List Current Medications: Active Medications Albuterol Sulfate (Ventolin Hfa Inhaler -) puff IH PRN [facility] Amlodipine Besylate (Norvasc -) 2.5 mg PO DAILY [facility] Last Admin: 09/15/17 11:32 Dose: 2.5 mg Cholestyramine Resin (Questran Packet -) 4 gm PO BID [facility] Last Admin: 09/15/17 22:48 Dose: 4 gm Dicyclomine HCl (Bentyl -) 20 mg PO Q6H PRN PRN Reason: ABDOMINAL PAIN Last Admin: 09/15/17 22:47 Dose: 20 mg Escitalopram Oxalate (Lexapro -) 20 mg PO BID [facility] Last Admin: 09/15/17 22:48 Dose: 20 mg Fentanyl (Duragesic 100mcg Patch -) 2 patch TD Q72H [facility] Last Admin: 09/13/17 10:02 Dose: 2 patch Hydrocortisone (Hytone 1% Ointment -) 1 applic TP Q12H PRN PRN Reason: FOR ITCHING Hydrocortisone (Hytone 2.5% Lotion -) 1 applic TP Q12H PRN PRN Reason: FOR ITCHING Metronidazole (Flagyl 500mg Premixed Ivpb -) 500 mg in 100 mls @ 100 mls/hr IVPB Q6H-IV [facility] Last Admin: 09/16/17 04:20 Dose: 100 mls/hr Insulin Aspart (Novolog Vial Sliding Scale -) 1 vial SQ ACHS [facility]; Protocol Last Admin: 09/15/17 23:00 Dose: Not Given Lactobacillus Acidophilus (Bacid -) 1 tab PO BID [facility] Last Admin: 09/15/17 22:47 Dose: 1 tab Lorazepam (Ativan -) 1 mg PO BID [facility] Last Admin: 09/15/17 22:48 Dose: 1 mg Metoprolol Tartrate (Lopressor -) 100 mg PO BID [facility] Last Admin: 09/15/17 22:48 Dose: 100 mg Miscellaneous (Duragesic Patch Waste) 1 each TD PRN PRN PRN Reason: WASTE Last Admin: 09/13/17 10:55 Dose: 1 each Montelukast Sodium (Singulair -) 10 mg PO HS [facility] Last Admin: 09/15/17 22:48 Dose: 10 mg Morphine Sulfate (Morphine Injection -) 2 mg IVPUSH Q6H PRN PRN Reason: PAIN LEVEL 7 - 10 Last Admin: 09/15/17 22:48 Dose: 2 mg Nicotine (Nicoderm Patch -) 14 mg TD DAILY [facility] Last Admin: 09/15/17 10:10 Dose: 14 mg Ondansetron HCl (Zofran -) 8 mg PO Q8H PRN PRN Reason: FOR ITCHING Last Admin: 09/15/17 17:33 Dose: 8 mg Pantoprazole Sodium (Protonix -) 40 mg PO DAILY [facility] Last Admin: 09/15/17 10:10 Dose: 40 mg Ranitidine HCl (Zantac -) 150 mg PO BID [facility] Last Admin: 09/15/17 22:48 Dose: 150 mg Simethicone (Mylicon -) 80 mg PO PRN [facility] Last Admin: 09/15/17 14:22 Dose: 80 mg Spironolactone (Aldactone -) 100 mg PO DAILY [facility] Last Admin: 09/15/17 10:10 Dose: 100 mg Sucralfate (Carafate Oral Suspension -) 1 gm PO TID [facility] Last Admin: 09/15/17 22:47 Dose: 1 gm - Objective Vital Signs: Vital Signs Temperature 97.9 F 09/16/17 05:56 Pulse Rate 62 09/16/17 05:56 Respiratory Rate 20 09/16/17 05:56 Blood Pressure 153/71 09/16/17 05:56 O2 Sat by Pulse Oximetry (%) 98 09/15/17 21:00 Constitutional: Yes: No Distress, Calm Eyes: Yes: Conjunctiva Clear HENT: Yes: Atraumatic Neck: Yes: Supple Cardiovascular: Yes: Regular Rate and Rhythm Respiratory: Yes: CTA Bilaterally Gastrointestinal: Yes: Soft, Tenderness (mild epigastric). No: Distention Genitourinary: No: CVA Tenderness - Left, CVA Tenderness - Right Musculoskeletal: No: Joint Stiffness, Joint Swelling Extremities: No: Cold, Cool, Cyanosis Edema: No Integumentary: No: Venous Stasis Changes Neurological: Yes: WNL, Alert, Oriented ...Motor Strength: WNL Psychiatric: Yes: WNL, Alert, Oriented. No: Agitated, Suicidal Ideation Labs: CBC, BMP 09/15/17 06:30 09/15/17 06:30 INR, PTT INR 1.20 (0.82-1.09) H 09/11/17 15:10 - ....Imaging Other: Report Reviewed Assessment/Plan 47-year-old female h/o advanced liver cirrhosis, breast CA, presents to the emergency room with complaints of right upper quadrant pain, nausea vomiting intermittent diarrhea and inability to tolerate by mouth, weight loss. Gallstones but recent HIDA negative; s/p recent UTI; hypoK Cdiff still AG+ but Tox- ; blood cx negative GI ID f/u, pt said she can not take po ATB will continue IV for now and have ID & GI f/u; d /w pt that CDiff has high recurrence rate even with completed antibiotic treatments and might be a problem in the future (especially because she will need chemotherapy) advised to take meds as ordered and to complete ATB treatment as per ID and GI supplement K po, f/u labs falls DVT PFX pt is ambulatory; not on sq heparin b/o low PLT coagulopathy sec to advanced liver cirrhosis prognosis guarded d/w pt and staff see above
[2017-09-16] MEDS: SUCRALFATE 1 GM/10 ML UNIT DOSE CUPS PO SCH ×3 (06:59→22:12)
[2017-09-16] MEDS: INSULIN SLIDING SCALE (NOVOLOG) 1 VIAL SQ SCH ×4 (06:59→22:24)
[2017-09-16 07:33] LABS: BASO % 0.6 % (0-2.0); EOS % 2.7 % (0-4.5); HEMATOCRIT 33.1 % (32.4-45.2); HEMOGLOBIN 11.1 GM/dL (10.7-15.3); LYMPH % 31.2 % (8-40); MCH 25.6 pg (25.7-33.7); MCHC 33.7 g/dl (32.0-36.0); MEAN PLT VOLUME 9.3 fl (7.5-11.1); MONO % 12.4 % (3.8-10.2); NEUT % 53.1 % (42.8-82.8); PLATELET COUNT 80 K/MM3 (134-434); RBC 4.35 M/mm3 (3.60-5.2); RDW 17.2 % (11.6-15.6); WHITE BLOOD COUNT 3.4 K/mm3 (4.0-10.0)
[2017-09-16 07:41] LABS: INR 1.24 (0.82-1.09)
[2017-09-16 07:59] LABS: CHLORIDE 107 mmol/L (98-107); POTASSIUM 3.3 mmol/L (3.5-5.1); SODIUM 143 mmol/L (136-145)
[2017-09-16 08:55] LABS: ALBUMIN 3.3 g/dl (3.4-5.0); ALK PHOS 90 U/L (45-117); ANION GAP 8 (8-16); BILIRUBIN,TOTAL 0.6 mg/dL (0.2-1.0); BLOOD UREA NITROGEN 3 mg/dL (7-18); CALCIUM 8.5 mg/dL (8.5-10.1); CO2 28 mmol/L (21-32); CREATININE 0.6 mg/dL (0.55-1.02); GLUCOSE,RANDOM 95 mg/dL (74-106); SGOT/AST 16 U/L (15-37); SGPT/ALT 17 U/L (12-78); TOT PROT 5.8 g/dl (6.4-8.2)
[2017-09-16] MEDS ORDERED: PT OWN MED DRAWER 7, Y5N ONE ×2 (09:20→19:28)
[2017-09-16] MEDS: RANITIDINE HCL 150 MG TABLET (FP) PO SCH ×2 (09:21→22:13)
[2017-09-16] MEDS: amLODIPine BESYLATE 2.5 MG TABLET (FP) PO SCH (09:21)
[2017-09-16] MEDS: LORazepam 1 MG TABLET PO SCH ×2 (09:21→22:13)
[2017-09-16] MEDS: SPIRONOLACTONE 25 MG TABLET (FP) PO SCH (09:21)
[2017-09-16] MEDS: PANTOPRAZOLE 40 MG TABLET (FP) PO SCH (09:21)
[2017-09-16] MEDS: METOPROLOL TARTRATE 50 MG TABLET (FP) PO SCH ×2 (09:21→22:13)
[2017-09-16] MEDS: ESCITALOPRAM OXALATE 20 MG TABLET (FP) PO SCH ×2 (09:21→22:13)
[2017-09-16] MEDS: LACTOBACILLUS ACIDOPHILUS 1 TABLET PO SCH ×2 (09:21→22:12)
[2017-09-16] MEDS: fentaNYL 100mcg/hr PATCH.TD72 TD SCH (09:22)
[2017-09-16] MEDS: NICOTINE 14 MG/24 HOURS TOPICAL PATCH TD SCH (09:22)
[2017-09-16] MEDS: CHOLESTYRAMINE/SUCROSE 4 GM PACKET PO SCH ×2 (09:23→22:13)
[2017-09-16] MEDS: ONDANSETRON 4 MG TABLET PO PRN (13:11)
[2017-09-16] MEDS: morphine CARPU-JECT 2 MG/1 ML DISP.SYRIN IVPUSH PRN ×2 (13:11→19:31)
[2017-09-16] MEDS: SIMETHICONE 80 MG TAB.CHEW (FP) PO SCH (13:11)
[2017-09-16] MEDS ORDERED: ALBUTEROL SO4 18 GM HFA INHALER IH PRN (13:42)
[2017-09-16] MEDS ORDERED: POTASSIUM CHLORIDE ORAL LIQUID 20 MEQ/15 ML PO ONE (14:00)
[2017-09-16] MEDS ORDERED: ONDANSETRON 4 MG/2 ML VIAL IVPUSH PRN (14:27)
[2017-09-16] MEDS: POTASSIUM CHLORIDE 10 MEQ in SODIUM CHLORIDE 100 ML IVPB SCH ×3 (15:55→17:53)
[2017-09-16] MEDS: DICYCLOMINE HCL 10 MG CAPSULE PO PRN (19:31)
[2017-09-16] MEDS: MONTELUKAST NA 10 MG TABLET PO SCH (22:12)
--- NOTE | 2017-09-17 06:19 | PN ---
Progress Note, Physician Chief Complaint: no diarrhea in fact no BM x 2 days; asked for miralax prn on/off abdominal pain and nausea d/w pt she needs 7-10 days of flagyl or vanco for CDiff colitis - she states she can not take any ATB po (and especially flagyl and vanco which she tried before and made her violently ill and if I DC her home she will come back to ER to complete IV ATB); we discussed about SNF/PICC or port IV ATB for another 3-4 days, pt would "rather not go to SNF/NH for a couple of days" will dw CM in am ( tomorrow monday). - Current Medication List Current Medications: Active Medications Albuterol Sulfate (Ventolin Hfa Inhaler -) 1 puff IH Q4H PRN PRN Reason: SHORTNESS OF BREATH Amlodipine Besylate (Norvasc -) 5 mg PO DAILY [facility] Cholestyramine Resin (Questran Packet -) 4 gm PO BID [facility] Last Admin: 09/16/17 22:13 Dose: 4 gm Dicyclomine HCl (Bentyl -) 20 mg PO Q6H PRN PRN Reason: ABDOMINAL PAIN Last Admin: 09/16/17 19:31 Dose: 20 mg Escitalopram Oxalate (Lexapro -) 20 mg PO BID [facility] Last Admin: 09/16/17 22:13 Dose: 20 mg Fentanyl (Duragesic 100mcg Patch -) 2 patch TD Q72H [facility] Last Admin: 09/16/17 09:22 Dose: 2 patch Hydrocortisone (Hytone 1% Ointment -) 1 applic TP Q12H PRN PRN Reason: FOR ITCHING Hydrocortisone (Hytone 2.5% Lotion -) 1 applic TP Q12H PRN PRN Reason: FOR ITCHING Metronidazole (Flagyl 500mg Premixed Ivpb -) 500 mg in 100 mls @ 100 mls/hr IVPB Q6H-IV [facility] Last Admin: 09/17/17 04:11 Dose: 100 mls/hr Insulin Aspart (Novolog Vial Sliding Scale -) 1 vial SQ ACHS [facility]; Protocol Last Admin: 09/16/17 22:24 Dose: Not Given Lactobacillus Acidophilus (Bacid -) 1 tab PO BID [facility] Last Admin: 09/16/17 22:12 Dose: 1 tab Lorazepam (Ativan -) 1 mg PO BID [facility] Last Admin: 09/16/17 22:13 Dose: 1 mg Metoprolol Tartrate (Lopressor -) 100 mg PO BID [facility] Last Admin: 09/16/17 22:13 Dose: 100 mg Miscellaneous (Duragesic Patch Waste) 1 each TD PRN PRN PRN Reason: WASTE Last Admin: 09/13/17 10:55 Dose: 1 each Montelukast Sodium (Singulair -) 10 mg PO [facility] Last Admin: 09/16/17 22:12 Dose: 10 mg Morphine Sulfate (Morphine Injection -) 2 mg IVPUSH Q6H PRN PRN Reason: PAIN LEVEL 7 - 10 Last Admin: 09/16/17 19:31 Dose: 2 mg Nicotine (Nicoderm Patch -) 14 mg TD DAILY [facility] Last Admin: 09/16/17 09:22 Dose: 14 mg Ondansetron HCl (Zofran -) 8 mg PO Q8H PRN PRN Reason: FOR ITCHING Last Admin: 09/16/17 13:11 Dose: 8 mg Ondansetron HCl (Zofran Injection) 8 mg IVPUSH Q8H PRN PRN Reason: NAUSEA AND/OR VOMITING Last Admin: 09/16/17 15:19 Dose: 8 mg Pantoprazole Sodium (Protonix -) 40 mg PO DAILY [facility] Last Admin: 09/16/17 09:21 Dose: 40 mg Ranitidine HCl (Zantac -) 150 mg PO BID [facility] Last Admin: 09/16/17 22:13 Dose: 150 mg Simethicone (Mylicon -) 80 mg PO PRN [facility] Last Admin: 09/16/17 13:11 Dose: 80 mg Spironolactone (Aldactone -) 100 mg PO DAILY [facility] Last Admin: 09/16/17 09:21 Dose: 100 mg Sucralfate (Carafate Oral Suspension -) 1 gm PO TID [facility] Last Admin: 09/16/17 22:12 Dose: 1 gm - Objective Vital Signs: Vital Signs Temperature 98.4 F 09/17/17 05:54 Pulse Rate 60 09/17/17 05:54 Respiratory Rate 22 09/17/17 05:54 Blood Pressure 156/95 09/17/17 05:54 O2 Sat by Pulse Oximetry (%) 97 06/02/18 21:00 Constitutional: Yes: No Distress, Calm Eyes: Yes: Conjunctiva Clear HENT: Yes: Atraumatic Neck: Yes: Supple Cardiovascular: Yes: Regular Rate and Rhythm Respiratory: Yes: CTA Bilaterally Gastrointestinal: Yes: Soft, Tenderness (mild epig). No: Distention Genitourinary: No: CVA Tenderness - Left, CVA Tenderness - Right Musculoskeletal: No: Joint Stiffness Extremities: No: Cool, Cyanosis Edema: No Neurological: Yes: WNL, Alert, Oriented ...Motor Strength: WNL Psychiatric: Yes: WNL, Alert, Oriented. No: Agitated, Suicidal Ideation Labs: CBC, BMP 09/16/17 05:50 09/16/17 05:50 INR, PTT INR 1.24 (0.82-1.09) H 09/16/17 05:55 - ....Imaging Other: Report Reviewed Assessment/Plan 47-year-old female h/o advanced liver cirrhosis, breast CA, presents to the emergency room with complaints of right upper quadrant pain, nausea vomiting intermittent diarrhea and inability to tolerate by mouth, weight loss. Gallstones but recent HIDA negative; s/p recent UTI; hypoK Cdiff still AG+ but Tox- ; blood cx negative GI ID f/u, pt said she can not take po ATB will continue IV for now and have ID & GI f/u; d /w pt that CDiff has high recurrence rate even with completed antibiotic treatments and might be a problem in the future (especially because she will need chemotherapy) advised to take meds as ordered and to complete ATB treatment as per ID and GI supplement K po, f/u labs falls DVT PFX pt is ambulatory; not on sq heparin b/o low PLT coagulopathy sec to advanced liver cirrhosis prognosis guarded d/w pt and staff to d/w CM in am further management for IV ATB for 3-4 days see above
[2017-09-17] MEDS: INSULIN SLIDING SCALE (NOVOLOG) 1 VIAL SQ SCH ×4 (06:50→21:26)
[2017-09-17] MEDS: SUCRALFATE 1 GM/10 ML UNIT DOSE CUPS PO SCH ×3 (06:51→21:25)
[2017-09-17] MEDS ORDERED: INSULIN (NOVOLOG) ASPART 100 UNITS/ML 10ML VIAL ONE (07:29)
[2017-09-17] MEDS: PANTOPRAZOLE 40 MG TABLET (FP) PO SCH (09:23)
[2017-09-17] MEDS: NICOTINE 14 MG/24 HOURS TOPICAL PATCH TD SCH (09:23)
[2017-09-17] MEDS: ESCITALOPRAM OXALATE 20 MG TABLET (FP) PO SCH ×2 (09:23→21:25)
[2017-09-17] MEDS: amLODIPine BESYLATE 5 MG TABLET (FP) PO SCH (09:23)
[2017-09-17] MEDS: LACTOBACILLUS ACIDOPHILUS 1 TABLET PO SCH ×2 (09:23→21:25)
[2017-09-17] MEDS: LORazepam 1 MG TABLET PO SCH ×2 (09:23→21:25)
[2017-09-17] MEDS: RANITIDINE HCL 150 MG TABLET (FP) PO SCH ×2 (09:23→21:25)
[2017-09-17] MEDS: METOPROLOL TARTRATE 50 MG TABLET (FP) PO SCH ×2 (09:23→21:25)
[2017-09-17] MEDS: SPIRONOLACTONE 25 MG TABLET (FP) PO SCH (09:24)
[2017-09-17] MEDS: CHOLESTYRAMINE/SUCROSE 4 GM PACKET PO SCH ×2 (09:25→21:26)
[2017-09-17] MEDS: SIMETHICONE 80 MG TAB.CHEW (FP) PO SCH (18:15)
[2017-09-17] MEDS: ONDANSETRON 4 MG TABLET PO PRN (18:15)
[2017-09-17] MEDS: MONTELUKAST NA 10 MG TABLET PO SCH (21:25)
--- NOTE | 2017-09-18 06:34 | PN ---
Progress Note, Physician Chief Complaint: feels better, day 6 of full IV Flagyl can not take po ATB - Current Medication List Current Medications: Active Medications Albuterol Sulfate (Ventolin Hfa Inhaler -) 1 puff IH Q4H PRN PRN Reason: SHORTNESS OF BREATH Amlodipine Besylate (Norvasc -) 5 mg PO DAILY [facility] Last Admin: 09/17/17 09:23 Dose: 5 mg Cholestyramine Resin (Questran Packet -) 4 gm PO BID [facility] Last Admin: 09/17/17 21:26 Dose: Not Given Dicyclomine HCl (Bentyl -) 20 mg PO Q6H PRN PRN Reason: ABDOMINAL PAIN Last Admin: 09/16/17 19:31 Dose: 20 mg Escitalopram Oxalate (Lexapro -) 20 mg PO BID [facility] Last Admin: 09/17/17 21:25 Dose: 20 mg Fentanyl (Duragesic 100mcg Patch -) 2 patch TD Q72H [facility] Last Admin: 09/16/17 09:22 Dose: 2 patch Hydrocortisone (Hytone 1% Ointment -) 1 applic TP Q12H PRN PRN Reason: FOR ITCHING Hydrocortisone (Hytone 2.5% Lotion -) 1 applic TP Q12H PRN PRN Reason: FOR ITCHING Metronidazole (Flagyl 500mg Premixed Ivpb -) 500 mg in 100 mls @ 100 mls/hr IVPB Q6H-IV [facility] Last Admin: 09/18/17 03:10 Dose: 100 mls/hr Insulin Aspart (Novolog Vial Sliding Scale -) 1 vial SQ ACHS [facility]; Protocol Last Admin: 09/17/17 21:26 Dose: Not Given Lactobacillus Acidophilus (Bacid -) 1 tab PO BID [facility] Last Admin: 09/17/17 21:25 Dose: 1 tab Lorazepam (Ativan -) 1 mg PO BID [facility] Last Admin: 09/17/17 21:25 Dose: 1 mg Metoprolol Tartrate (Lopressor -) 100 mg PO BID [facility] Last Admin: 09/17/17 21:25 Dose: 100 mg Miscellaneous (Duragesic Patch Waste) 1 each TD PRN PRN PRN Reason: WASTE Last Admin: 09/13/17 10:55 Dose: 1 each Montelukast Sodium (Singulair -) 10 mg PO [facility] Last Admin: 09/17/17 21:25 Dose: 10 mg Morphine Sulfate (Morphine Injection -) 2 mg IVPUSH Q6H PRN PRN Reason: PAIN LEVEL 7 - 10 Last Admin: 09/16/17 19:31 Dose: 2 mg Nicotine (Nicoderm Patch -) 14 mg TD DAILY [facility] Last Admin: 09/17/17 09:23 Dose: 14 mg Ondansetron HCl (Zofran -) 8 mg PO Q8H PRN PRN Reason: FOR ITCHING Last Admin: 09/17/17 18:15 Dose: 8 mg Ondansetron HCl (Zofran Injection) 8 mg IVPUSH Q8H PRN PRN Reason: NAUSEA AND/OR VOMITING Last Admin: 09/16/17 15:19 Dose: 8 mg Pantoprazole Sodium (Protonix -) 40 mg PO DAILY [facility] Last Admin: 09/17/17 09:23 Dose: 40 mg Ranitidine HCl (Zantac -) 150 mg PO BID [facility] Last Admin: 09/17/17 21:25 Dose: 150 mg Simethicone (Mylicon -) 80 mg PO PRN [facility] Last Admin: 09/17/17 18:15 Dose: 80 mg Spironolactone (Aldactone -) 100 mg PO DAILY [facility] Last Admin: 09/17/17 09:24 Dose: 100 mg Sucralfate (Carafate Oral Suspension -) 1 gm PO TID [facility] Last Admin: 09/17/17 21:25 Dose: 1 gm - Objective Vital Signs: Vital Signs Temperature 98.4 F 09/18/17 05:55 Pulse Rate 59 L 09/18/17 05:55 Respiratory Rate 20 09/18/17 05:55 Blood Pressure 135/68 09/18/17 05:55 O2 Sat by Pulse Oximetry (%) 97 09/17/17 21:00 Constitutional: Yes: No Distress, Calm Eyes: Yes: Conjunctiva Clear HENT: Yes: Atraumatic Neck: Yes: Supple Cardiovascular: Yes: Regular Rate and Rhythm Respiratory: Yes: CTA Bilaterally Gastrointestinal: Yes: Soft. No: Distention, Tenderness Genitourinary: No: CVA Tenderness - Left, CVA Tenderness - Right Musculoskeletal: No: Joint Stiffness, Joint Swelling Extremities: No: Cold, Cool, Cyanosis Edema: No Integumentary: No: Venous Stasis Changes Neurological: Yes: WNL, Alert, Oriented ...Motor Strength: WNL Psychiatric: Yes: WNL, Alert, Oriented. No: Agitated, Suicidal Ideation Labs: CBC, BMP 09/16/17 05:50 09/16/17 05:50 INR, PTT INR 1.24 (0.82-1.09) H 09/16/17 05:55 - ....Imaging Other: Report Reviewed Assessment/Plan 47-year-old female h/o advanced liver cirrhosis, breast CA, presents to the emergency room with complaints of right upper quadrant pain, nausea vomiting intermittent diarrhea and inability to tolerate by mouth, weight loss. Gallstones but recent HIDA negative; s/p recent UTI; hypoK Cdiff still AG+ but Tox- ; blood cx negative GI ID f/u IV falgyl for total 7 full days - d/w pt that CDiff has high recurrence rate even with completed antibiotic treatments and might be a problem in the future ( especially because she will need chemotherapy) advised to take meds as ordered and to complete ATB treatment as per ID and GI supplement K po, f/u labs falls DVT PFX pt is ambulatory; not on sq heparin b/o low PLT coagulopathy sec to advanced liver cirrhosis prognosis guarded d/w pt and staff DC home in am if stable after the completion of full 7 days IV Flagyl
[2017-09-18] MEDS: SUCRALFATE 1 GM/10 ML UNIT DOSE CUPS PO SCH ×3 (06:41→23:04)
[2017-09-18] MEDS: INSULIN SLIDING SCALE (NOVOLOG) 1 VIAL SQ SCH ×4 (06:41→23:17)
[2017-09-18 07:34] LABS: BASO % 0.5 % (0-2.0); EOS % 2.1 % (0-4.5); HEMATOCRIT 31.1 % (32.4-45.2); HEMOGLOBIN 10.5 GM/dL (10.7-15.3); MCH 25.7 pg (25.7-33.7); MCHC 33.7 g/dl (32.0-36.0); MEAN CELL VOLUME 76.2 fl (80-96); MEAN PLT VOLUME 9.7 fl (7.5-11.1); MONO % 11.3 % (3.8-10.2); NEUT % 45.1 % (42.8-82.8); PLATELET COUNT 71 K/MM3 (134-434); RBC 4.08 M/mm3 (3.60-5.2); RDW 17.5 % (11.6-15.6); WHITE BLOOD COUNT 3.4 K/mm3 (4.0-10.0)
[2017-09-18 07:52] LABS: CHLORIDE 107 mmol/L (98-107); POTASSIUM 3.6 mmol/L (3.5-5.1); SODIUM 142 mmol/L (136-145)
[2017-09-18 07:59] LABS: ALBUMIN 3.2 g/dl (3.4-5.0); ALK PHOS 92 U/L (45-117); ANION GAP 4 (8-16); BILIRUBIN,TOTAL 0.4 mg/dL (0.2-1.0); BLOOD UREA NITROGEN 6 mg/dL (7-18); CALCIUM 8.2 mg/dL (8.5-10.1); CO2 31 mmol/L (21-32); CREATININE 0.6 mg/dL (0.55-1.02); GLUCOSE,RANDOM 83 mg/dL (74-106); MAGNESIUM 1.9 mg/dL (1.8-2.4); SGOT/AST 21 U/L (15-37); SGPT/ALT 18 U/L (12-78); TOT PROT 5.7 g/dl (6.4-8.2)
[2017-09-18] MEDS: PANTOPRAZOLE 40 MG TABLET (FP) PO SCH (10:04)
[2017-09-18] MEDS: SPIRONOLACTONE 25 MG TABLET (FP) PO SCH (10:04)
[2017-09-18] MEDS: METOPROLOL TARTRATE 50 MG TABLET (FP) PO SCH ×2 (10:05→23:05)
[2017-09-18] MEDS: LACTOBACILLUS ACIDOPHILUS 1 TABLET PO SCH ×2 (10:05→23:04)
[2017-09-18] MEDS: LORazepam 1 MG TABLET PO SCH ×2 (10:05→23:05)
[2017-09-18] MEDS: ESCITALOPRAM OXALATE 20 MG TABLET (FP) PO SCH ×2 (10:05→23:04)
[2017-09-18] MEDS: NICOTINE 14 MG/24 HOURS TOPICAL PATCH TD SCH (10:06)
[2017-09-18] MEDS: RANITIDINE HCL 150 MG TABLET (FP) PO SCH ×2 (10:06→23:04)
[2017-09-18] MEDS: amLODIPine BESYLATE 5 MG TABLET (FP) PO SCH (10:06)
[2017-09-18] MEDS: CHOLESTYRAMINE/SUCROSE 4 GM PACKET PO SCH ×2 (10:31→23:17)
[2017-09-18] MEDS ORDERED: POLYETHYLENE GLYCOL 3350 119 GM BTL PO PRN (12:16)
[2017-09-18] MEDS: ONDANSETRON 4 MG TABLET PO PRN (19:02)
[2017-09-18] MEDS: MONTELUKAST NA 10 MG TABLET PO SCH (23:04)
--- NOTE | 2017-09-18 23:27 | PN ---
Progress Note (short form) - Note Progress Note: Patient seen and examined diarrhea resolved AFVSS Cor: RSR, No murmurs, No gallops Lungs: Clear to P&A Abd: Soft, Normal bowel sounds, No organomegaly Ext:No significant edema Labs/meds reviewed A/P 47 y/o patient with triple - breast cancer, s/p surgery, cirrhosis/portal htn, c.diff on iv flagyl to complete antibiotic course to considerweekly taxol , once c.diff adequately treated----thrombocytopenia will be very challeging patient to f/u in the office next monday
[2017-09-19] MEDS: SUCRALFATE 1 GM/10 ML UNIT DOSE CUPS PO SCH ×2 (05:50→13:58)
[2017-09-19] MEDS: INSULIN SLIDING SCALE (NOVOLOG) 1 VIAL SQ SCH ×2 (06:01→11:23)
--- NOTE | 2017-09-19 06:12 | PN ---
Progress Note, Physician - Current Medication List Current Medications: Active Medications Albuterol Sulfate (Ventolin Hfa Inhaler -) 1 puff IH Q4H PRN PRN Reason: SHORTNESS OF BREATH Amlodipine Besylate (Norvasc -) 5 mg PO DAILY [facility] Last Admin: 09/18/17 10:06 Dose: 5 mg Cholestyramine Resin (Questran Light Packet -) 4 gm PO BID [facility] Dicyclomine HCl (Bentyl -) 20 mg PO Q6H PRN PRN Reason: ABDOMINAL PAIN Last Admin: 09/16/17 19:31 Dose: 20 mg Escitalopram Oxalate (Lexapro -) 20 mg PO BID [facility] Last Admin: 09/18/17 23:04 Dose: 20 mg Fentanyl (Duragesic 100mcg Patch -) 2 patch TD Q72H [facility] Last Admin: 09/16/17 09:22 Dose: 2 patch Hydrocortisone (Hytone 1% Ointment -) 1 applic TP Q12H PRN PRN Reason: FOR ITCHING Hydrocortisone (Hytone 2.5% Lotion -) 1 applic TP Q12H PRN PRN Reason: FOR ITCHING Metronidazole (Flagyl 500mg Premixed Ivpb -) 500 mg in 100 mls @ 100 mls/hr IVPB Q6H-IV [facility] Last Admin: 09/19/17 04:03 Dose: 100 mls/hr Insulin Aspart (Novolog Vial Sliding Scale -) 1 vial SQ ACHS [facility]; Protocol Last Admin: 09/19/17 06:01 Dose: Not Given Lactobacillus Acidophilus (Bacid -) 1 tab PO BID [facility] Last Admin: 09/18/17 23:04 Dose: 1 tab Lorazepam (Ativan -) 1 mg PO BID [facility] Last Admin: 09/18/17 23:05 Dose: 1 mg Metoprolol Tartrate (Lopressor -) 100 mg PO BID [facility] Last Admin: 09/18/17 23:05 Dose: 100 mg Miscellaneous (Duragesic Patch Waste) 1 each TD PRN PRN PRN Reason: WASTE Last Admin: 09/13/17 10:55 Dose: 1 each Montelukast Sodium (Singulair -) 10 mg PO HS [facility] Last Admin: 09/18/17 23:04 Dose: 10 mg Morphine Sulfate (Morphine Injection -) 2 mg IVPUSH Q6H PRN PRN Reason: PAIN LEVEL 7 - 10 Last Admin: 09/16/17 19:31 Dose: 2 mg Nicotine (Nicoderm Patch -) 14 mg TD DAILY [facility] Last Admin: 09/18/17 10:06 Dose: 14 mg Ondansetron HCl (Zofran -) 8 mg PO Q8H PRN PRN Reason: FOR ITCHING Last Admin: 09/18/17 19:02 Dose: 8 mg Ondansetron HCl (Zofran Injection) 8 mg IVPUSH Q8H PRN PRN Reason: NAUSEA AND/OR VOMITING Last Admin: 09/16/17 15:19 Dose: 8 mg Pantoprazole Sodium (Protonix -) 40 mg PO DAILY [facility] Last Admin: 09/18/17 10:04 Dose: 40 mg Polyethylene Glycol (Miralax (For Daily Use) -) 17 gm PO BID PRN PRN Reason: CONSTIPATION Last Admin: 09/18/17 12:26 Dose: 17 gm Ranitidine HCl (Zantac -) 150 mg PO BID [facility] Last Admin: 09/18/17 23:04 Dose: 150 mg Simethicone (Mylicon -) 80 mg PO PRN [facility] Last Admin: 09/17/17 18:15 Dose: 80 mg Spironolactone (Aldactone -) 100 mg PO DAILY [facility] Last Admin: 09/18/17 10:04 Dose: 100 mg Sucralfate (Carafate Oral Suspension -) 1 gm PO TID [facility] Last Admin: 09/19/17 05:50 Dose: 1 gm - Objective Vital Signs: Vital Signs Temperature 98.2 F 09/19/17 06:00 Pulse Rate 61 09/19/17 06:00 Respiratory Rate 16 09/19/17 06:00 Blood Pressure 103/50 09/19/17 06:00 O2 Sat by Pulse Oximetry (%) 97 09/18/17 21:00 Labs: CBC, BMP 09/18/17 06:45 09/18/17 06:45 INR, PTT INR 1.24 (0.82-1.09) H 09/16/17 05:55
[2017-09-19 07:28] LABS: BASO % 0.5 % (0-2.0); HEMATOCRIT 30.6 % (32.4-45.2); HEMOGLOBIN 10.2 GM/dL (10.7-15.3); LYMPH % 40.5 % (8-40); MCH 25.7 pg (25.7-33.7); MCHC 33.4 g/dl (32.0-36.0); MEAN PLT VOLUME 10.8 fl (7.5-11.1); PLATELET COUNT 79 K/MM3 (134-434); RBC 3.97 M/mm3 (3.60-5.2); RDW 18.3 % (11.6-15.6); WHITE BLOOD COUNT 3.3 K/mm3 (4.0-10.0)
[2017-09-19] MEDS: LACTOBACILLUS ACIDOPHILUS 1 TABLET PO SCH (09:16)
[2017-09-19] MEDS: SPIRONOLACTONE 25 MG TABLET (FP) PO SCH (09:16)
[2017-09-19] MEDS: NICOTINE 14 MG/24 HOURS TOPICAL PATCH TD SCH (09:17)
[2017-09-19] MEDS: METOPROLOL TARTRATE 50 MG TABLET (FP) PO SCH (09:17)
[2017-09-19] MEDS: PANTOPRAZOLE 40 MG TABLET (FP) PO SCH (09:18)
[2017-09-19] MEDS: RANITIDINE HCL 150 MG TABLET (FP) PO SCH (09:18)
[2017-09-19] MEDS: ESCITALOPRAM OXALATE 20 MG TABLET (FP) PO SCH (09:18)
[2017-09-19] MEDS: fentaNYL 100mcg/hr PATCH.TD72 TD SCH (09:18)
[2017-09-19] MEDS: amLODIPine BESYLATE 5 MG TABLET (FP) PO SCH (09:19)
[2017-09-19] MEDS: LORazepam 1 MG TABLET PO SCH (09:19)
[2017-09-19] MEDS: FENTANYL PATCH WASTE TD PRN (09:31)
[2017-09-19] MEDS: ONDANSETRON 4 MG TABLET PO PRN (09:36)
--- NOTE | 2017-09-19 09:40 | DS ---
Physical Examination Vital Signs: Vital Signs Temperature 98.2 F 09/19/17 06:00 Pulse Rate 61 09/19/17 06:00 Respiratory Rate 16 09/19/17 06:00 Blood Pressure 103/50 09/19/17 06:00 O2 Sat by Pulse Oximetry (%) 97 09/18/17 21:00 Findings/Remarks: in bed feels better had 1 BM no abdominal pain no N/V/D ate OK; to go home today after 3 PM dose of IV flagyl received 7 days full IV Flagyl ( started 09/12 evening) f/u as advised DC planning and meds d/w pt in detail Constitutional: Yes: No Distress, Calm Eyes: Yes: Conjunctiva Clear HENT: Yes: Atraumatic Neck: Yes: Supple Cardiovascular: Yes: Regular Rate and Rhythm Respiratory: Yes: CTA Bilaterally Gastrointestinal: Yes: Soft. No: Distention, Tenderness Renal/: No: CVA Tenderness - Left, CVA Tenderness - Right Musculoskeletal: No: Joint Stiffness, Joint Swelling Extremities: No: Cold, Cool, Cyanosis Edema: No Integumentary: No: Pressure Ulcer, Venous Stasis Changes Neurological: Yes: WNL, Alert, Oriented ...Motor Strength: WNL Psychiatric: Yes: WNL, Alert, Oriented. No: Agitated, Suicidal Ideation Labs: CBC, BMP 09/19/17 06:00 09/18/17 06:45 Discharge Summary Reason For Visit: NAUSE,VOMITING,ABD PAIN,CHOLECYSTITIS Current Active Problems Abdominal pain (Acute) Cholelithiasis (Acute) Diarrhea (Acute) Nausea & vomiting (Acute) Procedures: Principal: admitted with CDiff colitis, had IV ATB per GI and ID Other Procedures: seen by GI dr Saucedo, ID dr Smith and Heme ONC dr Sloan; Hospital Course: improved with IV Flagyl, but could not tolerate po ATB; completed 7 full days IV Flagyl in hospital DC home see instructions and meds, d/w pt and staff Condition: Improved - Instructions Diet, Activity, Other Instructions: f/u PCP GI and ONC in 1-2 weeks of DCf/u at [facility] as advised GI/liver center f/u breast surgery RTER if worse or recurrent DC home with VNS, PT rehab Referrals: Josephine Groves [Primary Care Provider] - Suleman Saucedo MD [Staff Physician] - Charles Sloan MD [Staff Physician] - Disposition: VNS/HOME HEALTH CARE - Home Medications Comprehensive Discharge Medication List: Ambulatory Orders Albuterol Sulfate [Proair Hfa] 8.5 gm IH PRN 08/04/17 Escitalopram Oxalate [Lexapro -] 20 mg PO BID 08/04/17 Esomeprazole Magnesium 40 mg PO DAILY 08/04/17 Furosemide [Lasix] 40 mg PO DAILY 08/04/17 Lactobacillus Acidophilus [Acidophilus] 1 tab PO BID 08/04/17 Lactulose 10 gm PO BID 08/04/17 Lorazepam [Ativan] 1 mg PO BID 08/04/17 Metformin HCl 500 mg PO BID 08/04/17 Metoprolol Tartrate 100 mg PO BID 08/04/17 Montelukast Sodium [Singulair] 10 mg PO HS 08/04/17 Ondansetron HCl [Zofran] 8 mg PO PRN PRN 08/04/17 Ranitidine [Zantac -] 150 mg PO BID 08/04/17 FENTANYL 100mcg PATCH [DURAGESIC 100mcg PATCH -] 2 each TD Q72H 08/31/17 Simethicone 80 mg PO PRN 08/31/17 Dicyclomine HCl [Bentyl -] 20 mg PO Q6H PRN #90 capsule 09/06/17 Hydrocortisone 1% Ointment [Hytone 1% Ointment -] 1 applic TP Q12H PRN tube Hydrocortisone 2.5% Lotion [Hytone 2.5% Lotion -] 1 applic TP Q12H PRN bottle 09/06/17 Nicotine Patch [Nicoderm Patch -] 14 mg TD DAILY patch 09/06/17 Spironolactone [Aldactone -] 100 mg PO DAILY #30 tablet 09/06/17 Sucralfate Oral Suspension [Carafate Oral Suspension -] 1 gm PO TID 30 Days ml 09/06/17
[2017-09-19] MEDS ORDERED: CHOLESTYRAMINE/ASPARTAME 4 GM PACKET PO SCH (10:00)
[2017-09-19 14:06] VITALS: BP 101/66; PULSE 66; TEMP 98.6
== END 2017-09-19 15:30 | disposition home health service (06) | DRG 373 ==
LOC: JER 11:21 → JERBED 12:32 → J6S 14:47 → J7W 09-12 21:13
PROVIDERS: ADMIT Internal Medicine; ATTEND Internal Medicine
DX: A04.72 Enterocolitis due to Clostridium difficile, not specified as recurrent (principal); K80.20 Calculus of gallbladder without cholecystitis without obstruction; K83.8 Other specified diseases of biliary tract; Z85.3 Personal history of malignant neoplasm of breast; L40.9 Psoriasis, unspecified; K76.0 Fatty (change of) liver, not elsewhere classified; R11.2 Nausea with vomiting, unspecified
CPT/HCPCS: 36415; 80048; 80053; 81003; 82962; 83690; 83735; 84484; 85025; 85610; 85651; 86850; 86900; 86901; 87040; 87045; 87046; 87177; 87209; 87324; 87449; 99283-25; J7030

== ENCOUNTER 2017-10-12 07:28 | Day surgery (SDC) | payer OTHER ==
[2017-10-12] MEDS ORDERED: [UNRECOGNIZED DRUG - OTHER] IVPB ONE (10:00)
[2017-10-12] MEDS ORDERED: DEXAMETHASONE IVPB ONE ×2 (10:00→14:00)
[2017-10-12] MEDS ORDERED: ONDANSETRON IVPB ONE (10:00)
[2017-10-12] MEDS ORDERED: RANITIDINE IVPB ONE ×2 (10:00→14:00)
[2017-10-12] MEDS ORDERED: PACLITAXEL IVPB ONE (10:30)
[2017-10-12] MEDS ORDERED: SODIUM CHLORIDE IVPB ONE (10:30)
[2017-10-12] MEDS ORDERED: SODIUM CHLORIDE 250 ML IV ONE (11:30)
[2017-10-12 11:43] LABS: BASO % 1.3 % (0-2.0); EOS % 0.9 % (0-4.5); HEMATOCRIT 37.1 % (32.4-45.2); HEMOGLOBIN 12.3 GM/dL (10.7-15.3); MCH 25.3 pg (25.7-33.7); MCHC 33.1 g/dl (32.0-36.0); MEAN CELL VOLUME 76.2 fl (80-96); MEAN PLT VOLUME 9.3 fl (7.5-11.1); MONO % 9.7 % (3.8-10.2); NEUT % 58.1 % (42.8-82.8); PLATELET COUNT 123 K/MM3 (134-434); RBC 4.86 M/mm3 (3.60-5.2); RDW 19.3 % (11.6-15.6); WHITE BLOOD COUNT 6.2 K/mm3 (4.0-10.0)
[2017-10-12 12:08] LABS: CHLORIDE 104 mmol/L (98-107); POTASSIUM 4.7 mmol/L (3.5-5.1); SODIUM 137 mmol/L (136-145)
[2017-10-12 12:15] LABS: ALBUMIN 3.7 g/dl (3.4-5.0); ALK PHOS 145 U/L (45-117); ANION GAP 7 (8-16); BILIRUBIN,DIRECT 0.3 mg/dL (0.0-0.2); BILIRUBIN,TOTAL 0.7 mg/dL (0.2-1.0); BLOOD UREA NITROGEN 9 mg/dL (7-18); CO2 26 mmol/L (21-32); CREATININE 0.8 mg/dL (0.55-1.02); GLUCOSE,RANDOM 81 mg/dL (74-106); MAGNESIUM 2.1 mg/dL (1.8-2.4); SGOT/AST 35 U/L (15-37); SGPT/ALT 34 U/L (12-78); TOT PROT 6.7 g/dl (6.4-8.2)
[2017-10-12] MEDS ORDERED: ONDANSETRON 4 MG/2 ML VIAL IVPB ONE (13:45)
[2017-10-12] MEDS ORDERED: DEXAMETHASONE SOD PHOSPHATE 10 MG/1 ML VIAL IVPB ONE (13:45)
[2017-10-12] MEDS ORDERED: ACETAMINOPHEN 325 MG TABLET (FP) PO ONE (13:45)
[2017-10-12] MEDS ORDERED: [UNRECOGNIZED DRUG - OTHER] IVPB ONE (14:00)
[2017-10-12] MEDS ORDERED: DIPHENHYDRAMINE IVPB ONE (14:00)
[2017-10-12 18:27] VITALS: TEMP 98.5
[2017-10-12 18:32] VITALS: BP 113/69; PULSE 69
[2017-10-12] MEDS ORDERED: PORTA CATH FLUSH 10 ML IVPUSH ONE (18:32)
== END 2017-10-12 17:10 | disposition home or self-care (01) ==
LOC: JONCCHEMO 07:28 → J7W 12:51 → JONCCHEMO 17:10
PROVIDERS: ATTEND Internal Medicine Hematology & Oncology
DX: Z51.11 Encounter for antineoplastic chemotherapy (principal); C50.919 Malignant neoplasm of unspecified site of unspecified female breast; E11.9 Type 2 diabetes mellitus without complications
CPT/HCPCS: 36415; 80053; 80076; 83735; 85025; 96361; 96367; 96375; 96413

== ENCOUNTER 2017-10-26 07:57 | Day surgery (SDC) | payer OTHER ==
[2017-10-26] MEDS ORDERED: [UNRECOGNIZED DRUG - OTHER] IVPB ONE (08:00)
[2017-10-26] MEDS ORDERED: ONDANSETRON IVPB ONE (08:00)
[2017-10-26] MEDS ORDERED: DEXAMETHASONE IVPB ONE (08:00)
[2017-10-26] MEDS ORDERED: DIPHENHYDRAMINE IVPB ONE (08:00)
[2017-10-26] MEDS ORDERED: DEXAMETHASONE INJECTION 10 MG, DIPHENHYDRAMINE 50 MG, RANITIDINE INJECTION 50 MG in SOD... IVPB ONE ×2 (08:00)
[2017-10-26] MEDS ORDERED: PACLITAXEL IVPB ONE (08:30)
[2017-10-26] MEDS ORDERED: SODIUM CHLORIDE IVPB ONE (08:30)
[2017-10-26] MEDS ORDERED: PACLITAXEL 102 MG in SODIUM CHLORIDE 250 ML IVPB ONE (08:30)
[2017-10-26] MEDS ORDERED: SODIUM CHLORIDE 250 ML IV ONE (09:30)
[2017-10-26 11:43] VITALS: TEMP 98.3
[2017-10-26 12:17] LABS: BASO % 1.4 % (0-2.0); EOS % 0.7 % (0-4.5); HEMATOCRIT 36.8 % (32.4-45.2); HEMOGLOBIN 12.1 GM/dL (10.7-15.3); LYMPH % 52.6 % (8-40); MCH 25.5 pg (25.7-33.7); MCHC 32.9 g/dl (32.0-36.0); MEAN CELL VOLUME 77.6 fl (80-96); MEAN PLT VOLUME 9.3 fl (7.5-11.1); MONO % 10.5 % (3.8-10.2); NEUT % 34.8 % (42.8-82.8); PLATELET COUNT 128 K/MM3 (134-434); RBC 4.74 M/mm3 (3.60-5.2); RDW 19.4 % (11.6-15.6); WHITE BLOOD COUNT 3.3 K/mm3 (4.0-10.0)
[2017-10-26 12:43] LABS: BLOOD UREA NITROGEN 10 mg/dL (7-18); CHLORIDE 104 mmol/L (98-107); POTASSIUM 4.1 mmol/L (3.5-5.1); SGOT/AST 22 U/L (15-37); SGPT/ALT 33 U/L (12-78); SODIUM 139 mmol/L (136-145)
[2017-10-26 13:02] LABS: ALBUMIN 3.8 g/dl (3.4-5.0); ALK PHOS 143 U/L (45-117); ANION GAP 9 (8-16); BILIRUBIN,TOTAL 1.2 mg/dL (0.2-1.0); CO2 26 mmol/L (21-32); CREATININE 0.7 mg/dL (0.55-1.02); GLUCOSE,RANDOM 120 mg/dL (74-106); TOT PROT 6.8 g/dl (6.4-8.2)
[2017-10-26 14:26] LABS: ALBUMIN 3.8 g/dl (3.4-5.0); BILIRUBIN,DIRECT 0.4 mg/dL (0.0-0.2); BILIRUBIN,TOTAL 1.1 mg/dL (0.2-1.0); TOT PROT 6.9 g/dl (6.4-8.2)
[2017-10-26 18:29] VITALS: BP 134/75; PULSE 71
[2017-10-26] MEDS ORDERED: PORTA CATH FLUSH 10 ML IVPUSH ONE (18:29)
== END 2017-10-26 17:30 | disposition home or self-care (01) ==
LOC: JONCCHEMO 07:57 → J7W 12:55 → JONCCHEMO 17:30
PROVIDERS: ATTEND Internal Medicine Hematology & Oncology
DX: Z51.11 Encounter for antineoplastic chemotherapy (principal); C50.919 Malignant neoplasm of unspecified site of unspecified female breast; E11.9 Type 2 diabetes mellitus without complications
CPT/HCPCS: 36415; 80053; 80076; 83735; 85025; 96361; 96367; 96375; 96413; J1100

== ENCOUNTER 2017-10-27 07:31 | Day surgery (SDC) | payer OTHER ==
[2017-10-27] MEDS ORDERED: TBO-FILGRASTIM 300 MCG/0.5 ML DISP.SYRINGE SQ ONE (10:00)
[2017-10-27 13:38] LABS: BASO % 0.5 % (0-2.0); EOS % 0.3 % (0-4.5); HEMATOCRIT 34.5 % (32.4-45.2); HEMOGLOBIN 11.3 GM/dL (10.7-15.3); LYMPH % 42.9 % (8-40); MCH 25.7 pg (25.7-33.7); MCHC 32.8 g/dl (32.0-36.0); MEAN CELL VOLUME 78.4 fl (80-96); MEAN PLT VOLUME 9.2 fl (7.5-11.1); MONO % 8.5 % (3.8-10.2); NEUT % 47.8 % (42.8-82.8); PLATELET COUNT 99 K/MM3 (134-434); RDW 18.8 % (11.6-15.6); WHITE BLOOD COUNT 3.3 K/mm3 (4.0-10.0)
[2017-11-02] MEDS ORDERED: DEXAMETHASONE INJECTION 10 MG, DIPHENHYDRAMINE 50 MG, RANITIDINE INJECTION 50 MG in SOD... IVPB ONE (08:00)
[2017-11-02] MEDS ORDERED: PACLITAXEL 102 MG in SODIUM CHLORIDE 250 ML IVPB ONE (08:30)
[2017-11-02] MEDS ORDERED: SODIUM CHLORIDE 250 ML IV ONE (09:30)
== END 2017-10-27 19:58 | disposition home or self-care (01) ==
LOC: JONCCHEMO 07:31 → J7W 12:45 → JONCCHEMO 19:58
PROVIDERS: ATTEND Internal Medicine Hematology & Oncology
PROC: 3E033GC Introduction of Other Therapeutic Substance into Peripheral Vein, Percutaneous Approach (ICD-10-PCS; principal; 2017-10-27)
DX: Z53.8 Procedure and treatment not carried out for other reasons (principal)
CPT/HCPCS: 36415; 85025

== ENCOUNTER 2017-11-02 12:21 | Day surgery (SDC) | payer OTHER ==
[2017-11-02 13:03] LABS: BASO % 1.1 % (0-2.0); EOS % 0.4 % (0-4.5); HEMATOCRIT 33.2 % (32.4-45.2); HEMOGLOBIN 11.3 GM/dL (10.7-15.3); LYMPH % 45.1 % (8-40); MCH 26.5 pg (25.7-33.7); MCHC 34.1 g/dl (32.0-36.0); MEAN CELL VOLUME 77.8 fl (80-96); MEAN PLT VOLUME 9.4 fl (7.5-11.1); MONO % 4.9 % (3.8-10.2); NEUT % 48.5 % (42.8-82.8); PLATELET COUNT 120 K/MM3 (134-434); RBC 4.27 M/mm3 (3.60-5.2); RDW 19.1 % (11.6-15.6)
[2017-11-02 13:52] LABS: ALBUMIN 3.5 g/dl (3.4-5.0); ALK PHOS 128 U/L (45-117); ANION GAP 5 (8-16); BILIRUBIN,DIRECT 0.3 mg/dL (0.0-0.2); BILIRUBIN,TOTAL 0.6 mg/dL (0.2-1.0); BLOOD UREA NITROGEN 9 mg/dL (7-18); CALCIUM 8.6 mg/dL (8.5-10.1); CHLORIDE 107 mmol/L (98-107); CO2 29 mmol/L (21-32); CREATININE 0.6 mg/dL (0.55-1.02); GLUCOSE,RANDOM 108 mg/dL (74-106); MAGNESIUM 1.6 mg/dL (1.8-2.4); POTASSIUM 4.1 mmol/L (3.5-5.1); SGOT/AST 23 U/L (15-37); SGPT/ALT 31 U/L (12-78); SODIUM 141 mmol/L (136-145); TOT PROT 6.3 g/dl (6.4-8.2)
[2017-11-02 13:55] LABS: BILIRUBIN,TOTAL 0.6 mg/dL (0.2-1.0); TOT PROT 6.3 g/dl (6.4-8.2)
[2017-11-02] MEDS ORDERED: DEXAMETHASONE INJECTION 10 MG, DIPHENHYDRAMINE 50 MG, RANITIDINE INJECTION 50 MG in SOD... IVPB ONE (15:15)
[2017-11-02] MEDS ORDERED: PACLITAXEL 102 MG in SODIUM CHLORIDE 250 ML IVPB ONE (15:45)
[2017-11-02] MEDS ORDERED: SODIUM CHLORIDE 250 ML IV ONE (16:00)
[2017-11-02] MEDS ORDERED: MAGNESIUM 1GM/D5W 100ML - 100 ML IVPB IVPB ONE (16:30)
[2017-11-02 18:17] VITALS: TEMP 97.9
[2017-11-02] MEDS ORDERED: PORTA CATH FLUSH 10 ML IVPUSH ONE (18:17)
[2017-11-02 18:19] VITALS: BP 145/77; PULSE 67
== END 2017-11-02 18:10 | disposition home or self-care (01) ==
LOC: JONCCHEMO 12:21 → J7W 14:41 → JONCCHEMO 18:10
PROVIDERS: ATTEND Internal Medicine Hematology & Oncology
DX: Z51.11 Encounter for antineoplastic chemotherapy (principal); C50.919 Malignant neoplasm of unspecified site of unspecified female breast; E11.9 Type 2 diabetes mellitus without complications
CPT/HCPCS: 36415; 80053; 80076; 83735; 85025; 96361; 96366; 96367; 96375; 96413; 96417; J1100

== ENCOUNTER 2017-11-09 07:35 | Day surgery (SDC) | payer OTHER ==
[2017-11-09] MEDS ORDERED: [UNRECOGNIZED DRUG - OTHER] IVPB ONE (08:00)
[2017-11-09] MEDS ORDERED: DIPHENHYDRAMINE IVPB ONE ×2 (08:00)
[2017-11-09] MEDS ORDERED: DEXAMETHASONE IVPB ONE ×2 (08:00)
[2017-11-09] MEDS ORDERED: ONDANSETRON IVPB ONE (08:00)
[2017-11-09] MEDS ORDERED: RANITIDINE IVPB ONE (08:00)
[2017-11-09] MEDS ORDERED: DEXAMETHASONE INJECTION 10 MG, DIPHENHYDRAMINE 50 MG, RANITIDINE INJECTION 50 MG in SOD... IVPB ONE (08:00)
[2017-11-09] MEDS ORDERED: [UNRECOGNIZED DRUG - OTHER] IVPB ONE (08:00)
[2017-11-09] MEDS ORDERED: PACLITAXEL 102 MG in SODIUM CHLORIDE 250 ML IVPB ONE (08:30)
[2017-11-09] MEDS ORDERED: ONDANSETRON INJECTION 8 MG in SODIUM CHLORIDE 50 ML IVPB ONE (09:00)
[2017-11-09] MEDS ORDERED: SODIUM CHLORIDE 250 ML IV ONE (09:30)
[2017-11-09] MEDS ORDERED: ONDANSETRON 4 MG/2 ML VIAL IVPB ONE ×3 (12:15→14:15)
[2017-11-09 12:21] LABS: BASO % 1.4 % (0-2.0); EOS % 0.5 % (0-4.5); HEMATOCRIT 34.2 % (32.4-45.2); HEMOGLOBIN 11.5 GM/dL (10.7-15.3); LYMPH % 34.5 % (8-40); MCH 26.3 pg (25.7-33.7); MCHC 33.6 g/dl (32.0-36.0); MEAN CELL VOLUME 78.3 fl (80-96); MEAN PLT VOLUME 9.3 fl (7.5-11.1); MONO % 6.4 % (3.8-10.2); NEUT % 57.2 % (42.8-82.8); PLATELET COUNT 136 K/MM3 (134-434); RBC 4.37 M/mm3 (3.60-5.2); RDW 19.7 % (11.6-15.6); WHITE BLOOD COUNT 2.5 K/mm3 (4.0-10.0)
[2017-11-09 12:56] LABS: ALBUMIN 3.7 g/dl (3.4-5.0); ANION GAP 9 (8-16); BLOOD UREA NITROGEN 9 mg/dL (7-18); CALCIUM 9.1 mg/dL (8.5-10.1); CHLORIDE 102 mmol/L (98-107); CO2 29 mmol/L (21-32); GLUCOSE,RANDOM 139 mg/dL (74-106); POTASSIUM 3.9 mmol/L (3.5-5.1); SODIUM 140 mmol/L (136-145)
[2017-11-09 12:59] LABS: MAGNESIUM 1.8 mg/dL (1.8-2.4)
[2017-11-09 13:00] LABS: ALK PHOS 131 U/L (45-117); BILIRUBIN,TOTAL 0.9 mg/dL (0.2-1.0); CREATININE 0.8 mg/dL (0.55-1.02); SGOT/AST 21 U/L (15-37); SGPT/ALT 30 U/L (12-78); TOT PROT 6.7 g/dl (6.4-8.2)
[2017-11-09 13:05] LABS: ALBUMIN 3.5 g/dl (3.4-5.0); BILIRUBIN,DIRECT 0.4 mg/dL (0.0-0.2); BILIRUBIN,TOTAL 0.9 mg/dL (0.2-1.0); TOT PROT 6.4 g/dl (6.4-8.2)
[2017-11-09 15:33] VITALS: TEMP 99.1
[2017-11-09] MEDS ORDERED: PORTA CATH FLUSH 10 ML IVPUSH ONE (15:33)
[2017-11-09 18:22] VITALS: BP 131/76; PULSE 77
[2017-11-10 06:06] LABS: SERUM IRON SATURATION 11 % (15-55); TOTAL IRON BINDING CAPACITY 359 ug/dL (250-450); UIBC 321 ug/dL (131-425)
== END 2017-11-09 17:15 | disposition home or self-care (01) ==
LOC: JONCCHEMO 07:35 → J7W 13:22 → JONCCHEMO 17:15
PROVIDERS: ATTEND Internal Medicine Hematology & Oncology
DX: Z51.11 Encounter for antineoplastic chemotherapy (principal); C50.919 Malignant neoplasm of unspecified site of unspecified female breast
CPT/HCPCS: 36415; 80053; 80076; 82607; 82728; 83540; 83550; 83735; 83883; 84439; 84443; 85025; 96361; 96367; 96375; 96413; J1100

== ENCOUNTER 2017-11-13 11:24 | Day surgery (SDC) | payer OTHER ==
[2017-11-13] MEDS ORDERED: TBO-FILGRASTIM 300 MCG/0.5 ML DISP.SYRINGE SQ ONE (12:15)
[2017-11-13] MEDS ORDERED: BUPIVACAINE LIPOSOME/PF (EXPAREL) 266 MG/20 ML VIAL NR ONE (12:15)
[2017-11-13 16:20] VITALS: BP 125/73; PULSE 78; TEMP 98.8
== END 2017-11-13 12:35 | disposition home or self-care (01) ==
LOC: JONCCHEMO 11:24 → J7W 11:46 → JONCCHEMO 12:35
PROVIDERS: ATTEND Internal Medicine Hematology & Oncology
PROC: 3E013GC Introduction of Other Therapeutic Substance into Subcutaneous Tissue, Percutaneous Approach (ICD-10-PCS; principal; 2017-11-13)
DX: C50.919 Malignant neoplasm of unspecified site of unspecified female breast (principal); Z76.89 Persons encountering health services in other specified circumstances
CPT/HCPCS: 96372; J1447

== ENCOUNTER 2017-11-16 07:35 | Day surgery (SDC) | payer OTHER ==
[2017-11-16] MEDS ORDERED: ONDANSETRON IVPB ONE (08:00)
[2017-11-16] MEDS ORDERED: DEXAMETHASONE IVPB ONE (08:00)
[2017-11-16] MEDS ORDERED: DIPHENHYDRAMINE IVPB ONE (08:00)
[2017-11-16] MEDS ORDERED: [UNRECOGNIZED DRUG - OTHER] IVPB ONE (08:00)
[2017-11-16] MEDS ORDERED: PACLITAXEL 102 MG in SODIUM CHLORIDE 250 ML IVPB ONE (08:30)
[2017-11-16 09:42] LABS: BASO % 0.9 % (0-2.0); EOS % 0.6 % (0-4.5); HEMATOCRIT 36.2 % (32.4-45.2); HEMOGLOBIN 12.2 GM/dL (10.7-15.3); LYMPH % 23.3 % (8-40); MCH 26.6 pg (25.7-33.7); MCHC 33.7 g/dl (32.0-36.0); MEAN CELL VOLUME 78.7 fl (80-96); MEAN PLT VOLUME 8.5 fl (7.5-11.1); MONO % 7.6 % (3.8-10.2); NEUT % 67.6 % (42.8-82.8); PLATELET COUNT 154 K/MM3 (134-434); RBC 4.59 M/mm3 (3.60-5.2); RDW 19.9 % (11.6-15.6); WHITE BLOOD COUNT 4.6 K/mm3 (4.0-10.0)
[2017-11-16 10:07] LABS: ALBUMIN 3.6 g/dl (3.4-5.0); ANION GAP 7 (8-16); BILIRUBIN,DIRECT 0.4 mg/dL (0.0-0.2); BLOOD UREA NITROGEN 7 mg/dL (7-18); CALCIUM 9.1 mg/dL (8.5-10.1); CHLORIDE 106 mmol/L (98-107); CO2 29 mmol/L (21-32); GLUCOSE,RANDOM 117 mg/dL (74-106); MAGNESIUM 1.9 mg/dL (1.8-2.4); POTASSIUM 3.7 mmol/L (3.5-5.1); SODIUM 142 mmol/L (136-145)
[2017-11-16 10:10] LABS: TOT PROT 6.2 g/dl (6.4-8.2)
[2017-11-16 10:11] LABS: ALK PHOS 137 U/L (45-117); BILIRUBIN,TOTAL 1.1 mg/dL (0.2-1.0); CREATININE 0.7 mg/dL (0.55-1.02); SGOT/AST 22 U/L (15-37); SGPT/ALT 27 U/L (12-78); TOT PROT 6.3 g/dl (6.4-8.2)
[2017-11-16] MEDS ORDERED: SODIUM CHLORIDE 750 ML IV STA (10:14)
[2017-11-16] MEDS ORDERED: SODIUM CHLORIDE 500 ML IV STA (10:17)
[2017-11-16] MEDS: SODIUM CHLORIDE 250 ML IV ONE ×2 (10:54→14:30)
[2017-11-16] MEDS ORDERED: PORTA CATH FLUSH 10 ML IVPUSH ONE (10:59)
[2017-11-16 11:02] LABS: ANISOCYTOSIS 1+; MACROCYTOSIS 0; PLATELET ESTIMATE DECREASED
[2017-11-16 16:05] VITALS: BP 138/74; PULSE 73
[2017-11-16 16:15] VITALS: TEMP 99.3
== END 2017-11-16 16:00 | disposition home or self-care (01) ==
LOC: JONCCHEMO 07:35 → J7W 10:50 → JONCCHEMO 16:00
PROVIDERS: ATTEND Internal Medicine Hematology & Oncology
DX: Z51.11 Encounter for antineoplastic chemotherapy (principal); C50.919 Malignant neoplasm of unspecified site of unspecified female breast
CPT/HCPCS: 36415; 80053; 80076; 83735; 85025; 96361; 96367; 96375; J1100; J2405; J7030

== ENCOUNTER 2017-11-20 10:28 | Inpatient (IN) | payer OTHER ==
--- NOTE | 2017-11-20 10:58 | PDOC ---
History of Present Illness - General History Source: Patient Exam Limitations: No Limitations - History of Present Illness Initial Comments: 11/20/17 12:33 The patient is a 47 year old female, with a significant past medical history of breast cancer s/p left lumpectomy, liver cirrhosis, hypertension, diabetes, anxiety and depression, who presents to the emergency department with, 3 days of worsening diarrhea and generalized abdominal pain. As per patient, her symptoms initially onset 3 days ago and has since worsened to numerous episodes of diarrhea. Her pain worsens upon defecation and she reports it to feel similar to her diagnosis of colitis and C. difficile. She reports associated diaphoresis, shortness of breath, and lightheadedness. The patient also endorses nausea which she contributes to her chemotherapy. The patient is currently on chemotherapy and her next treatment is due for . She is currently on Neupogen and is due for her next treatment today. She is also on biologics for her psoriasis. She denies recent fevers, chills, headache or dizziness. She denies recent vomit , or constipation. She denies recent dysuria, frequency, urgency or hematuria. She denies recent chest pain. Allergies: Nickel, Timolol, Titanium Past surgical history: 3 neck surgeries Social history: Current smoker. Denies alcohol and recreational drug use PCP: Dr. Josephine Groves Oncologist: Dr. Miller <Nima Marie - Last Filed: 11/20/17 12:50> <Criselda Perales - Last Filed: 11/22/17 09:25> - General Chief Complaint: Pain Stated Complaint: EVALUATION (PCP SENT) Time Seen by Provider: 11/20/17 10:53 Past History <Nima Marie - Last Filed: 11/20/17 12:50> - Past Medical History Asthma: Yes Cancer: Yes (Breast cancer left) Cardiac Disorders: Yes (Peripheral Artery Disease) COPD: No DVT: No Diabetes: Yes HTN: Yes Hypercholesterolemia: Yes Liver Disease: Yes (fatty liver, cirrhosis) Psychiatric Problems: Yes (depression, anxiety) - Surgical History Orthopedic Surgery: Yes (3 neck sx's (2005, 2006, 2009)) - Immunization History Immunization Up to Date: No - Suicide/Smoking/Psychosocial Hx Smoking History: Current every day smoker Have you smoked in the past 12 months: Yes Number of Cigarettes Smoked Daily: 6 Information on smoking cessation initiated: No 'Breaking Loose' booklet given: 09/09/17 Hx Alcohol Use: No Drug/Substance Use Hx: No Substance Use Type: None Hx Substance Use Treatment: No <DiazCriselda - Last Filed: 11/22/17 09:25> - Past Medical History Allergies/Adverse Reactions: Allergies Allergy/AdvReac Type Severity Reaction Status Date / Time nickel Allergy Intermediate Rash Verified 11/20/17 10:34 timolol Allergy Swelling Verified 11/20/17 10:34 titanium Allergy Verified 11/20/17 10:34 Home Medications: Ambulatory Orders Albuterol Sulfate [Proair Hfa] 2 puff IH PRN PRN 08/04/17 Escitalopram Oxalate [Lexapro -] 20 mg PO Q12H 08/04/17 Esomeprazole Magnesium 40 mg PO DAILY 08/04/17 Lactobacillus Acidophilus [Acidophilus] 1 tab PO DAILY 08/04/17 Metoprolol Tartrate 50 mg PO Q12H 08/04/17 Montelukast Sodium [Singulair] 10 mg PO HS 08/04/17 Ranitidine [Zantac -] 150 mg PO BID 08/04/17 metFORMIN HCL [Metformin HCl] 500 mg PO Q12H 08/04/17 FENTANYL 100mcg PATCH [DURAGESIC 100mcg PATCH -] 2 patch TD Q72H 08/31/17 Simethicone 80 mg PO Q12H PRN 08/31/17 Nicotine Patch [Nicoderm Patch -] 14 mg TD DAILY patch 09/06/17 Dicyclomine HCl [Bentyl -] 10 mg PO Q12H 10/18/17 Ondansetron HCl [Zofran] 8 mg PO Q8H PRN 10/18/17 Sucralfate [Carafate -] 1 gm PO Q12H 10/18/17 Review of Systems - Review of Systems Able to Perform ROS?: Yes Comments:: 11/20/17 12:34 +CONSTITUTIONAL: Diaphoresis. No fever, no chills, no fatigue EYES: No visual changes ENT: No ear pain, no sore throat CARDIOVASCULAR: No chest pain, no palpitations +RESPIRATORY: SOB. No cough. +GI: Diarrhea. Abdominal pain. Nausea. No vomiting, no constipation GENITOURINARY: No dysuria, no frequency, no hematuria MUSCULOSKELETAL: No back pain, no joint pain, no myalgias SKIN: No rash +NEURO: Lightheadedness. No headache All Other Systems: Reviewed and Negative <Nima Marie - Last Filed: 11/20/17 12:50> *Physical Exam - Vital Signs Last Vital Signs Temp Pulse Resp BP Pulse Ox 98.6 F 119 H 24 151/80 99 11/20/17 10:35 11/20/17 10:35 11/20/17 10:35 11/20/17 10:35 11/20/17 10:35 - Physical Exam Comments: 11/20/17 12:50 GENERAL: The patient is in no acute distress. HEAD: Normal with no signs of trauma. +ENT: Dry mucous membrane. NECK: Normal range of motion, supple without lymphadenopathy, JVD, or masses. LUNGS: Breath sounds equal, clear to auscultation bilaterally. No wheezes, and no crackles. +HEART:Tachycardic. Systolic murmur. Regular rhythm, normal S1 and S2 without rub or gallop. +ABDOMEN: Diffuse severe tenderness. Soft. No guarding, no rebound. No masses palpable. EXTREMITIES: Normal range of motion, no edema. No clubbing or cyanosis. No tenderness. NEUROLOGICAL: Cranial nerves II through XII grossly intact. Normal speech. No focal neurological deficits. MUSCULOSKELETAL: Back non-tender to palpation, no CVA tenderness +SKIN: Diffuse psoriatic lesions. Warm, Dry, normal turgor, no rashes. <Nima Marie - Last Filed: 11/20/17 12:50> - Vital Signs Last Vital Signs Temp Pulse Resp BP Pulse Ox 98.6 F 119 H 24 151/80 99 11/20/17 10:35 11/20/17 10:35 11/20/17 10:35 11/20/17 10:35 11/20/17 10:35 <Criselda Perales - Last Filed: 11/22/17 09:25> ED Treatment Course - LABORATORY CBC & Chemistry Diagram: 11/20/17 11:30 11/20/17 11:30 - ADDITIONAL ORDERS Additional order review: Laboratory Results 11/20/17 11/20/17 11:31 11:30 VBG pH 7.44 H POC VBG pCO2 41.9 POC VBG pO2 34.7 Mixed VBG HCO3 28.2 H Lactic Acid 1.2 11/20/17 11:30 RBC 4.28 MCV 78.9 L MCHC 34.1 RDW 20.3 H MPV 9.5 D Neutrophils % 75.6 Lymphocytes % 17.3 D Monocytes % 6.1 Eosinophils % 0.3 Basophils % 0.7 <Nima Marie - Last Filed: 11/20/17 12:50> - LABORATORY CBC & Chemistry Diagram: 11/22/17 07:30 11/21/17 06:15 <Criselda Perales - Last Filed: 11/22/17 09:25> Medical Decision Making - Medical Decision Making 11/20/17 12:17 Ms. Jacobo is a 47 yo F with a history of breast cancer s/p lumpectomy currently on Chemo, h/o recent dx of C diff, h/o cholelithiasis (s/p imaging which did not demonstrate cystic duct obstruction), h/o liver cirrhosis. Pt is now on her 6th week of chemo She reports 2 days of abdominal pain and diarrhea this has worsened over the past 2 days no fevers noted No vomiting she is unable to estimate the number of times she has had diarrhea On examination Awake and alert Oriented Dry mucous membranes tachycardiac, jayleen abd is diffusely tender to palpation, no distention, no rebound DD: Colitis, C diff, Diverticulitis, Appendicitis with perforation Will do: labs IV hydration CT abd and pelvis (depsite pt having multiple CT scans in the past) Re assess 11/20/17 12:24 EKG: SR, rate of 93 bpm, axis nml, intervals nml, no st elevations or depressions, artifcat baseline lead II, III, aVF 11/20/17 13:01 Laboratory Tests 11/20/17 11/20/17 11/20/17 11:30 11:30 11:30 WBC 2.2 L Hgb 11.5 Hct 33.8 Plt Count 108 L D Absolute Neuts (auto) 1.6 Neutrophils % 75.6 Lymphocytes % 17.3 D INR 1.07 VBG pH 7.44 H POC VBG pCO2 41.9 POC VBG pO2 34.7 Mixed VBG HCO3 28.2 H Lactic Acid 11/20/17 11:31 WBC Hgb Hct Plt Count Absolute Neuts (auto) Neutrophils % Lymphocytes % INR VBG pH POC VBG pCO2 POC VBG pO2 Mixed VBG HCO3 Lactic Acid 1.2 11/20/17 13:28 Laboratory Tests 11/20/17 11/20/17 11:30 11:30 Sodium 144 Potassium 3.8 Chloride 107 Carbon Dioxide 26 Anion Gap 11 BUN 7 Creatinine 0.6 Random Glucose 115 H AST 22 ALT 24 Troponin I < 0.02 Total Amylase 12 L Lipase 48 L 11/20/17 14:50 CXR - nml CT pending Stool cultures pending Case reviewed with Dr. Davisroni Will admit to med surg CT read signed out to Dr Rodríguez as CT still was not read upon sign out <Criselda Perales - Last Filed: 11/22/17 09:25> *DC/Admit/Observation/Transfer - Attestations Scribe Attestion: 11/20/17 12:34 Documentation prepared by Nima Marie, acting as medical geneticist for Criselda Perales MD. <Nima Marie - Last Filed: 11/20/17 12:50> - Discharge Dispostion Decision to Admit order: Yes <Criselda Perales - Last Filed: 11/22/17 09:25> Diagnosis at time of Disposition: Abdominal pain Qualifiers: Abdominal location: generalized Qualified Code(s): R10.84 - Generalized abdominal pain - Discharge Dispostion Condition at time of disposition: Stable
[2017-11-20] MEDS ORDERED: SODIUM CHLORIDE 1,000 ML IV STA ×2 (11:11→11:44)
[2017-11-20 12:02] LABS: BASO % 0.7 % (0-2.0); EOS % 0.3 % (0-4.5); HEMATOCRIT 33.8 % (32.4-45.2); HEMOGLOBIN 11.5 GM/dL (10.7-15.3); LYMPH % 17.3 % (8-40); MCH 26.9 pg (25.7-33.7); MCHC 34.1 g/dl (32.0-36.0); MEAN CELL VOLUME 78.9 fl (80-96); MEAN PLT VOLUME 9.5 fl (7.5-11.1); MONO % 6.1 % (3.8-10.2); NEUT % 75.6 % (42.8-82.8); PLATELET COUNT 108 K/MM3 (134-434); RBC 4.28 M/mm3 (3.60-5.2); RDW 20.3 % (11.6-15.6); WHITE BLOOD COUNT 2.2 K/mm3 (4.0-10.0)
[2017-11-20 12:17] LABS: VENOUS PC02 41.9 mmHg (38-52); VENOUS PH 7.44 (7.32-7.42); VENOUS PO2 34.7 mmHg (28-48)
[2017-11-20 12:19] LABS: INR 1.07 (0.83-1.09); PROTHROMBIN TIME (PATIENT) 12.1 SEC (9.7-13.0)
[2017-11-20 12:21] LABS: ACTIVATED PTT 39.4 SECONDS (25.2-36.5)
[2017-11-20] MEDS ORDERED: morphine CARPU-JECT 4 MG/1 ML DISP.SYRIN IVPUSH ONE (12:38)
[2017-11-20] MEDS ORDERED: morphine SULFATE 4 MG/ML VIAL ONE (12:41)
[2017-11-20 13:12] LABS: CHLORIDE 107 mmol/L (98-107); POTASSIUM 3.8 mmol/L (3.5-5.1); SODIUM 144 mmol/L (136-145)
[2017-11-20 13:24] LABS: ALBUMIN 3.4 g/dl (3.4-5.0); ALK PHOS 129 U/L (45-117); AMYLASE 12 U/L (25-115); ANION GAP 11 (8-16); BILIRUBIN,TOTAL 1.7 mg/dL (0.2-1.0); BLOOD UREA NITROGEN 7 mg/dL (7-18); CALCIUM 8.7 mg/dL (8.5-10.1); CO2 26 mmol/L (21-32); CREATININE 0.6 mg/dL (0.55-1.02); GLUCOSE,RANDOM 115 mg/dL (74-106); LIPASE 48 U/L (73-393); SGOT/AST 22 U/L (15-37); SGPT/ALT 24 U/L (12-78)
--- NOTE | 2017-11-20 14:40 | HP ---
Admitting History and Physical - Primary Care Physician PCP: Josephine Groves S - Admission Chief Complaint: abdominal pain, diarrhea History of Present Illness: 11/20/17 12:33 The patient is a 47 year old female, with a significant past medical history of breast cancer s/p left lumpectomy, liver cirrhosis, hypertension, diabetes, anxiety and depression, who presents to the emergency department with, 3 days of worsening diarrhea and generalized abdominal pain. As per patient, her symptoms initially onset 3 days ago and has since worsened to numerous episodes of diarrhea. Her pain worsens upon defecation and she reports it to feel similar to her diagnosis of colitis and C. difficile. She reports associated diaphoresis, shortness of breath, and lightheadedness. The patient also endorses nausea which she contributes to her chemotherapy. The patient is currently on chemotherapy for breast cancer and her next treatment is due for 11/23. She is currently on Neupogen and is due for her next treatment today. She is also on biologics for her psoriasis. She denies recent fevers, chills, headache or dizziness. She denies recent vomit , or constipation. She denies recent dysuria, frequency, urgency or hematuria. She denies recent chest pain. 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: Migraine, Other Cardiovascular: Yes: HTN Pulmonary: Yes: COPD Gastrointestinal: Yes: Gastritis Hepatobiliary: Yes: Cirrhosis Renal/: Yes: UTI ...LMP: 08/26/03 Heme/Onc: Yes: Cancer Psych: Yes: Anxiety, Depression Musculoskeletal: Yes: Chronic low back pain Rheumatology: Yes: Other (Psoriatic arthritis) Endocrine: Yes: Diabetes Mellitus - Past Surgical History Past Surgical History: Yes: Laminectomy (C spine discectomy and fusion [facility] 2005, repeat fusion 2006, cervical hardware removed at [facility] 2009), Tonsillectomy, Upper Endoscopy - Smoking History Smoking history: Current every day smoker Have you smoked in the past 12 months: Yes Aproximately how many cigarettes per day: 6 - Alcohol/Substance Use Hx Alcohol Use: No History of Substance Use: reports: Prescription - Social History Usual Living Arrangement: Yes: Alone ADL: Independent Occupation: disability History of Recent Travel: No Home Medications - Allergies Allergies/Adverse Reactions: Allergies Allergy/AdvReac Type Severity Reaction Status Date / Time nickel Allergy Intermediate Rash Verified 11/20/17 10:34 timolol Allergy Swelling Verified 11/20/17 10:34 titanium Allergy Verified 11/20/17 10:34 - Home Medications Home Medications: Ambulatory Orders Albuterol Sulfate [Proair Hfa] 2 puff IH PRN PRN 08/04/17 Escitalopram Oxalate [Lexapro -] 20 mg PO Q12H 08/04/17 Esomeprazole Magnesium 40 mg PO DAILY 08/04/17 Lactobacillus Acidophilus [Acidophilus] 1 tab PO DAILY 08/04/17 Metoprolol Tartrate 50 mg PO Q12H 08/04/17 Montelukast Sodium [Singulair] 10 mg PO HS 08/04/17 Ranitidine [Zantac -] 150 mg PO BID 08/04/17 metFORMIN HCL [Metformin HCl] 500 mg PO Q12H 08/04/17 FENTANYL 100mcg PATCH [DURAGESIC 100mcg PATCH -] 2 patch TD Q72H 08/31/17 Simethicone 80 mg PO Q12H PRN 08/31/17 Nicotine Patch [Nicoderm Patch -] 14 mg TD DAILY patch 09/06/17 Dicyclomine HCl [Bentyl -] 10 mg PO Q12H 10/18/17 Ondansetron HCl [Zofran] 8 mg PO Q8H PRN 10/18/17 Sucralfate [Carafate -] 1 gm PO Q12H 10/18/17 Family Disease History - Family Disease History Family Disease History: CA: Father (lung), Mother (lung) Review of Systems - Review of Systems Constitutional: reports: Loss of Appetite, Unintentional Wgt. Loss, Weakness. denies: Chills, Fever Eyes: denies: Blind Spots, Blurred Vision, Double Vision, Eye Pain HENT: denies: Ear Pain, Epistaxis Neck: denies: Stiffness, Tenderness Cardiovascular: denies: Chest Pain, Shortness of Breath Respiratory: denies: Cough, SOB Gastrointestinal: reports: Abdominal Pain, Bloating, Diarrhea, Nausea. denies: Constipation, Melena, Rectal Bleeding, Vomiting, Vomiting Blood Genitourinary: denies: Burning, Discharge, Dysuria, Flank Pain Musculoskeletal: reports: Back Pain (chronic) Integumentary: reports: Rash (psoriasis). denies: Eczema Neurological: reports: Weakness (general). denies: Change in LOC, Change in Speech, Confusion, Dizziness, Headache, Seizure, Syncope Endocrine: reports: Unexplained Weight Loss Hematology/Lymphatic: denies: Easily Bruised, Excessive Bleeding Psychiatric: reports: Anxiety, Depression. denies: Altered Sleep Pattern, Hallucinations, Panic, Paranoia, Suicidal Physical Examination Vital Signs: Vital Signs Temperature 98.6 F 11/20/17 10:35 Pulse Rate 119 H 11/20/17 10:35 Respiratory Rate 24 11/20/17 10:35 Blood Pressure 151/80 11/20/17 10:35 O2 Sat by Pulse Oximetry (%) 99 11/20/17 10:35 Constitutional: Yes: No Distress, Calm Eyes: Yes: Conjunctiva Clear HENT: Yes: Atraumatic Neck: Yes: Supple Cardiovascular: Yes: Regular Rate and Rhythm Respiratory: Yes: CTA Bilaterally Gastrointestinal: Yes: Soft, Tenderness (general). No: Distention Renal/: No: CVA Tenderness - Left, CVA Tenderness - Right Musculoskeletal: No: Joint Stiffness, Joint Swelling Extremities: Yes: Erythema (psoriasis / legs). No: Cold, Cool, Cyanosis Edema: No Integumentary: No: Skin Tear, Venous Stasis Changes Neurological: Yes: WNL, Alert, Oriented ...Motor Strength: WNL Psychiatric: Yes: WNL, Alert, Oriented. No: Agitated, Suicidal Ideation Labs: CBC, BMP 11/20/17 11:30 11/20/17 11:30 Imaging - Results Chest X-ray: Report Reviewed Other: Report Reviewed Assessment/Plan 11/20/17 12:33 The patient is a 47 year old female, with a significant past medical history of breast cancer s/p left lumpectomy, liver cirrhosis, hypertension, diabetes, anxiety and depression, who presents to the emergency department with, 3 days of worsening diarrhea and generalized abdominal pain. 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 She is currently on Neupogen and is due for her next treatment today. She is also on biologics for her psoriasis. will admit for GI eval; abdomen CT r/o colitis IV flagyl check stools, Cx also will ask heme eval for leukopenia; s/p recent chemotx falls DVT PFX d/w pt and staff
[2017-11-20 15:26] LABS: URINE APPEARANCE CLEAR; URINE BILIRUBIN NEGATIVE (<2.0 mg/dL); URINE GLUCOSE (UA) NEGATIVE (NEGATIVE); URINE KETONE NEGATIVE (NEGATIVE); URINE LEUK ESTERASE NEGATIVE (NEGATIVE); URINE NITRITE NEGATIVE (NEGATIVE); URINE PROTEIN NEGATIVE (NEGATIVE)
[2017-11-20] MEDS ORDERED: ALBUTEROL SO4 8 GM HFA INHALER IH PRN (15:32)
[2017-11-20 15:35] LABS: URINE COLOR YELLOW
[2017-11-20] MEDS ORDERED: METOPROLOL TARTRATE 50 MG TABLET (FP) PO SCH (15:45)
--- NOTE | 2017-11-20 16:07 | CON.GI ---
Consult Consult Specialty:: GI Reason for Consultation:: diarrhea on/off - History of Present Illness History of Present Illness: Chart reviewed. Prior admission records reviewed. ED intake noted. 47 y/o patient with breast cancer status post L lumpectomy/ ALND on 08/07/17, T2 , N0, ER-/OR-/Her2-2+/FISH equivocaL. Currently undergoing chemotherrapy an dtaking biologics for psoriasis. Known liver cirrhosis with gastric varices/ portal HTN/anxiety/depression/chronic opiate dependence/psoriasis/psoriatic arthritis. An EGD this year during prior admission revealed an isolated fundal varix, mild portal hypertensive gastropathy. Per initial intake: The patient is a 47 year old female, with a significant past medical history of breast cancer s/p left lumpectomy, liver cirrhosis, hypertension, diabetes, anxiety and depression, who presents to the emergency department with, 3 days of worsening diarrhea and generalized abdominal pain. As per patient, her symptoms initially onset 3 days ago and has since worsened to numerous episodes of diarrhea. Her pain worsens upon defecation and she reports it to feel similar to her diagnosis of colitis and C. difficile. She reports associated diaphoresis, shortness of breath, and lightheadedness. The patient also endorses nausea which she contributes to her chemotherapy. The patient is currently on chemotherapy and her next treatment is due for . She is currently on Neupogen and is due for her next treatment today. She is also on biologics for her psoriasis. She denies recent fevers, chills, headache or dizziness. She denies recent vomit , or constipation. She denies recent dysuria, frequency, urgency or hematuria. She denies recent chest pain. At the time of this encounter, the pt appears to be not in distress, or discomfort. Reports on/off loose stools, variable volume,w/o associated tenismus , urgency, w/o blood, mucous, fever, chills, anusea, vomiting, or abdominal pain. Worse after meals. Better if NPO. Onset not associated with beginning of chemo therapy, per patient. No exposure to ill, eating out, travel, antibiotics. 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 Anxiety disorder. Narcotic addiction - Past Surgical History Past Surgical History: Yes: Laminectomy (C spine discectomy and fusion [facility] 2005, repeat fusion 2006, cervical hardware removed at [facility] 2009), Tonsillectomy, Upper Endoscopy - Alcohol/Substance Use Hx Alcohol Use: No History of Substance Use: reports: Prescription - Smoking History Smoking history: Current every day smoker Have you smoked in the past 12 months: Yes Aproximately how many cigarettes per day: 6 - Social History Usual Living Arrangement: Alone ADL: Independent Occupation: disability History of Recent Travel: No Home Medications - Allergies Allergies/Adverse Reactions: Allergies Allergy/AdvReac Type Severity Reaction Status Date / Time nickel Allergy Intermediate Rash Verified 11/20/17 10:34 timolol Allergy Swelling Verified 11/20/17 10:34 titanium Allergy Verified 11/20/17 10:34 - Home Medications Home Medications: Ambulatory Orders Albuterol Sulfate [Proair Hfa] 2 puff IH PRN PRN 08/04/17 Escitalopram Oxalate [Lexapro -] 20 mg PO Q12H 08/04/17 Esomeprazole Magnesium 40 mg PO DAILY 08/04/17 Lactobacillus Acidophilus [Acidophilus] 1 tab PO DAILY 08/04/17 Metoprolol Tartrate 50 mg PO Q12H 08/04/17 Montelukast Sodium [Singulair] 10 mg PO HS 08/04/17 Ranitidine [Zantac -] 150 mg PO BID 08/04/17 metFORMIN HCL [Metformin HCl] 500 mg PO Q12H 08/04/17 FENTANYL 100mcg PATCH [DURAGESIC 100mcg PATCH -] 2 patch TD Q72H 08/31/17 Simethicone 80 mg PO Q12H PRN 08/31/17 Nicotine Patch [Nicoderm Patch -] 14 mg TD DAILY patch 09/06/17 Dicyclomine HCl [Bentyl -] 10 mg PO Q12H 10/18/17 Ondansetron HCl [Zofran] 8 mg PO Q8H PRN 10/18/17 Sucralfate [Carafate -] 1 gm PO Q12H 10/18/17 Family Disease History - Family Disease History Family Disease History: CA: Father (lung), Mother (lung) Physical Exam-GI Vital Signs: Vital Signs Temperature 98.2 F 11/20/17 15:46 Pulse Rate 84 11/20/17 15:46 Respiratory Rate 16 11/20/17 15:46 Blood Pressure 131/72 11/20/17 15:46 O2 Sat by Pulse Oximetry (%) 98 11/20/17 15:46 Labs: CBC, BMP 11/20/17 11:30 11/20/17 11:30 INR, PTT INR 1.07 (0.83-1.09) 11/20/17 11:30 Problem List - Problems (1) Diarrhea Code(s): R19.7 - DIARRHEA, UNSPECIFIED Assessment/Plan Altered bowels in a pt receiving chemo therapy and biologics. Non-toxic, or in distress. Negative abdomina exam. CT a/p with contrast and blood work was ordered. r/o infectious etiology, enterocolitis Adequate po/iv hydration [employer]el[employer]an[employer] Antiemetics PRN Bowel rest Follow CT A/P
[2017-11-20] MEDS ORDERED: FENTANYL PATCH WASTE TD PRN (16:14)
[2017-11-20] MEDS: fentaNYL 100mcg/hr PATCH.TD72 TD SCH (16:20)
[2017-11-20] MEDS: SODIUM CHLORIDE 1,000 ML IV SCH (16:20)
[2017-11-20] MEDS ORDERED: DICYCLOMINE HCL 10 MG CAPSULE ONE (16:45)
[2017-11-20] MEDS ORDERED: SUCRALFATE 1 GM TABLET (FP) ONE (16:45)
[2017-11-20] MEDS: ESCITALOPRAM OXALATE 20 MG TABLET (FP) PO SCH ×2 (16:48→23:01)
[2017-11-20] MEDS: DICYCLOMINE HCL 10 MG CAPSULE PO SCH ×2 (16:48→23:01)
[2017-11-20] MEDS: SUCRALFATE 1 GM TABLET (FP) PO SCH ×2 (16:48→23:01)
[2017-11-20] MEDS ORDERED: TBO-FILGRASTIM 300 MCG/0.5 ML DISP.SYRINGE SQ ONE (20:30)
[2017-11-20] MEDS ORDERED: MORPHINE SULFATE 2 MG/ML VIAL IVPUSH PRN (22:30)
[2017-11-20] MEDS ORDERED: PT OWN MED DRAWER 7, Y5N ONE (22:34)
[2017-11-20] MEDS: MONTELUKAST NA 10 MG TABLET PO SCH (23:00)
[2017-11-20] MEDS: CHOLESTYRAMINE/SUCROSE 4 GM PACKET PO SCH (23:00)
[2017-11-20] MEDS: METOPROLOL TARTRATE 50 MG TABLET (FP) PO SCH (23:00)
[2017-11-20] MEDS: RANITIDINE HCL 150 MG TABLET (FP) PO SCH (23:00)
[2017-11-21] MEDS: SODIUM CHLORIDE 1,000 ML IV SCH ×2 (05:07→17:47)
[2017-11-21 07:34] LABS: ALBUMIN 3.2 g/dl (3.4-5.0); ANION GAP 8 (8-16); BILIRUBIN,TOTAL 1.4 mg/dL (0.2-1.0); BLOOD UREA NITROGEN 5 mg/dL (7-18); CALCIUM 8.4 mg/dL (8.5-10.1); CHLORIDE 109 mmol/L (98-107); CO2 27 mmol/L (21-32); CREATININE 0.6 mg/dL (0.55-1.02); GLUCOSE,RANDOM 91 mg/dL (74-106); POTASSIUM 3.5 mmol/L (3.5-5.1); SGOT/AST 15 U/L (15-37); SGPT/ALT 22 U/L (12-78); SODIUM 144 mmol/L (136-145); TOT PROT 5.8 g/dl (6.4-8.2)
[2017-11-21 07:35] LABS: ALK PHOS 117 U/L (45-117)
[2017-11-21 07:53] LABS: BASO % 0.4 % (0-2.0); EOS % 0.6 % (0-4.5); HEMATOCRIT 33.2 % (32.4-45.2); HEMOGLOBIN 11.2 GM/dL (10.7-15.3); LYMPH % 12.8 % (8-40); MCHC 33.8 g/dl (32.0-36.0); MEAN CELL VOLUME 79.9 fl (80-96); MEAN PLT VOLUME 9.5 fl (7.5-11.1); MONO % 3.1 % (3.8-10.2); NEUT % 83.1 % (42.8-82.8); PLATELET COUNT 127 K/MM3 (134-434); RBC 4.15 M/mm3 (3.60-5.2); RDW 19.7 % (11.6-15.6); WHITE BLOOD COUNT 6.4 K/mm3 (4.0-10.0)
--- NOTE | 2017-11-21 08:58 | PN ---
Progress Note, Physician Chief Complaint: still with abdominal pain, no apetite; diarrhea; stools for Cdiff sent - Current Medication List Current Medications: Active Medications Albuterol Sulfate (Ventolin Hfa Inhaler -) 2 puff IH Q6H PRN PRN Reason: SHORT OF BREATH/WHEEZING Cholestyramine Resin (Questran Packet -) 4 gm PO BID [facility] Last Admin: 11/20/17 23:00 Dose: 4 gm Dicyclomine HCl (Bentyl -) 10 mg PO BID [facility] Last Admin: 11/20/17 23:01 Dose: 10 mg Escitalopram Oxalate (Lexapro -) 20 mg PO BID [facility] Last Admin: 11/20/17 23:01 Dose: 20 mg Fentanyl (Duragesic 100mcg Patch -) 2 patch TD Q72H [facility] Last Admin: 11/20/17 16:20 Dose: Not Given Sodium Chloride (Normal Saline -) 1,000 mls @ 100 mls/hr IV ASDIR [facility] Last Admin: 11/21/17 05:07 Dose: 100 mls/hr Lactobacillus Acidophilus (Bacid -) 1 tab PO DAILY [facility] Metoprolol Tartrate (Lopressor -) 50 mg PO BID [facility] Last Admin: 11/20/17 23:00 Dose: 50 mg Miscellaneous (Duragesic Patch Waste) 1 each TD PRN PRN PRN Reason: WASTE Montelukast Sodium (Singulair -) 10 mg PO HS [facility] Last Admin: 11/20/17 23:00 Dose: 10 mg Morphine Sulfate (Morphine Sulfate) 2 mg IVPUSH Q6H PRN PRN Reason: PAIN LEVEL 7 - 10 Last Admin: 11/20/17 23:03 Dose: 2 mg Nicotine (Nicoderm Patch -) 14 mg TD DAILY [facility] Pantoprazole Sodium (Protonix -) 40 mg PO DAILY [facility] Ranitidine HCl (Zantac -) 150 mg PO BID [facility] Last Admin: 11/20/17 23:00 Dose: 150 mg Simethicone (Mylicon -) 80 mg PO Q12H PRN PRN Reason: DYSPEPSIA Sucralfate (Carafate -) 1 gm PO BID [facility] Last Admin: 11/20/17 23:01 Dose: 1 gm - Objective Vital Signs: Vital Signs Temperature 98.4 F 11/21/17 06:00 Pulse Rate 88 11/21/17 06:00 Respiratory Rate 20 08/07/18 06:00 Blood Pressure 135/74 11/21/17 06:00 O2 Sat by Pulse Oximetry (%) 98 11/21/17 00:11 Constitutional: Yes: No Distress, Calm Eyes: Yes: Conjunctiva Clear HENT: Yes: Atraumatic Neck: Yes: Supple Cardiovascular: Yes: Regular Rate and Rhythm Respiratory: Yes: CTA Bilaterally Gastrointestinal: Yes: Soft, Tenderness (mild, less today). No: Distention Genitourinary: No: CVA Tenderness - Left, CVA Tenderness - Right Musculoskeletal: No: Joint Stiffness, Joint Swelling Extremities: No: Cold, Cool, Cyanosis Edema: No Integumentary: Yes: Rash. No: Venous Stasis Changes Neurological: Yes: WNL, Alert, Oriented ...Motor Strength: WNL Psychiatric: Yes: WNL, Alert, Oriented. No: Agitated, Suicidal Ideation Labs: CBC, BMP 11/21/17 06:15 11/21/17 06:15 INR, PTT INR 1.07 (0.83-1.09) 11/20/17 11:30 - ....Imaging Other: Report Reviewed Assessment/Plan 11/20/17 12:33 The patient is a 47 year old female, with a significant past medical history of breast cancer s/p left lumpectomy, liver cirrhosis, hypertension, diabetes, anxiety and depression, who presents to the emergency department with, 3 days of worsening diarrhea and generalized abdominal pain. Has h/o CDiff colitis treated in the past; s/p chemotherapy s/p Neupogen GI f/u; abdomen CT c/w colitis; CDiff + ID eval IV flagyl check stools, Cx also will ask heme eval for leukopenia; s/p recent chemotx falls DVT PFX d/w pt and staff
--- NOTE | 2017-11-21 09:29 | CONSULT ---
Consultation: REQUESTING PROVIDER: CONSULT REQUEST: We have been asked to medically evaluate this patient for ( hematology- oncology). HISTORY OF PRESENT ILLNESS: The patient is a 47 year old female, with a significant past medical history of breast cancer s/p left lumpectomy, liver cirrhosis, hypertension, diabetes, anxiety and depression, who presents to the emergency department with, 3 days of worsening diarrhea and generalized abdominal pain. As per patient, her symptoms initially onset 3 days ago and has since worsened to numerous episodes of diarrhea. Her pain worsens upon defecation and she reports it to feel similar to her diagnosis of colitis and C. difficile. She reports associated diaphoresis, shortness of breath, and lightheadedness. The patient also endorses nausea which she contributes to her chemotherapy. The patient is currently on chemotherapy and her next treatment is due for 11/23. She is currently on Neupogen and is due for her next treatment today. She is also on biologics for her psoriasis. Patient also states that she has lump in right axilla which happen after surgery and was because of seroma and as per pt it was confirmed with ultrasound post surgery. Patient states that lump is stable. PMH: breast cancer, liver cirrhosis, htn, dm, anxiety, copd, gastritis, colitis. PSH: lumpectomy. Laminectomy (C spine discectomy and fusion [facility] 2005, repeat fusion 2006, cervical hardware removed at [facility] 2009), Tonsillectomy , Upper Endoscopy. Social history: Current smoker started at age of 15 and smokes 7 cig a day . 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 Family history: Mother from thoracic aneurysm father of lung cancer in his seventies sister healthy lives with her sister Allergies Allergy/AdvReac Type Severity Reaction Status Date / Time nickel Allergy Intermediate Rash Verified 11/20/17 10:34 timolol Allergy Swelling Verified 11/20/17 10:34 titanium Allergy Verified 11/20/17 10:34 Home Medications Medication Instructions Recorded Albuterol Sulfate [Proair Hfa] 2 puff IH PRN PRN 08/04/17 Escitalopram Oxalate [Lexapro -] 20 mg PO Q12H 08/04/17 Esomeprazole Magnesium 40 mg PO DAILY 08/04/17 Lactobacillus Acidophilus 1 tab PO DAILY 08/04/17 [Acidophilus] Metoprolol Tartrate 50 mg PO Q12H 08/04/17 Montelukast Sodium [Singulair] 10 mg PO HS 08/04/17 Ranitidine [Zantac -] 150 mg PO BID 08/04/17 metFORMIN HCL [Metformin HCl] 500 mg PO Q12H 08/04/17 FENTANYL 100mcg PATCH [DURAGESIC 2 patch TD Q72H 08/31/17 100mcg PATCH -] Simethicone 80 mg PO Q12H PRN 08/31/17 Nicotine Patch [Nicoderm Patch -] 14 mg TD DAILY patch 09/06/17 Dicyclomine HCl [Bentyl -] 10 mg PO Q12H 10/18/17 Ondansetron HCl [Zofran] 8 mg PO Q8H PRN 10/18/17 Sucralfate [Carafate -] 1 gm PO Q12H 10/18/17 REVIEW OF SYSTEMS: CONSTITUTIONAL: Absent: fever, chills, diaphoresis, generalized weakness, HEENT: Absent: rhinorrhea, nasal congestion, throat pain, throat swelling, CARDIOVASCULAR: Absent: chest pain, syncope, palpitations, irregular heart rate, RESPIRATORY: Absent: cough, shortness of breath, dyspnea with exertion, GASTROINTESTINAL: as above GENITOURINARY: Absent: dysuria, frequency, urgency, hesitancy, MUSCULOSKELETAL: Absent: myalgia, arthralgia, joint swelling, SKIN: Absent: rash, itching, pallor HEMATOLOGIC/IMMUNOLOGIC: Absent: easy bleeding, easy bruising, lymphadenopathy, ENDOCRINE: Absent: unexplained weight gain, unexplained weight loss, NEUROLOGIC: Absent: headache, focal weakness or paresthesias, dizziness, unsteady gait, seizure, PSYCHIATRIC: Absent: anxiety, depression, PHYSICAL EXAMINATION 11/21/17 11/21/17 02:00 06:00 Temperature 98.2 F 98.4 F Pulse Rate 73 88 Pulse Rate [ Apical] Respiratory 20 20 Rate Blood Pressure 123/74 135/74 Blood Pressure [Right Arm] O2 Sat by Pulse Oximetry (%) Well developed, well nourished. Awake and alert. No acute distress. HEENT: Normocephalic, atraumatic. No conjunctival pallor. Sclera are non-icteric. Moist mucous membranes. Oropharynx is clear. teeth absent NECK: Supple. Full ROM. CARDIOVASCULAR: Regular rate and rhythm. No murmurs, rubs, or gallops. PULMONARY: No evidence of respiratory distress. Lungs clear to auscultation bilaterally. No wheezing, rales or rhonchi. chemo port present BREAST: no mass palpable. surgery scar on left side present. Axilla: lump palpable in right axilla, ABDOMINAL: mild tenderness all over, Non-distended. no guarduing, no rigidity, No rebound. Normoactive bowel sounds. EXTREMITIES: No cyanosis. No clubbing. No edema. No calf tenderness. SKIN: Warm and dry multiple psoriatic lesions present. NEUROLOGICAL: Alert, awake, appropriate. 11/21/17 06:15 WBC RBC Hgb Hct MCV MCH MCHC RDW Plt Count MPV Absolute Neuts (auto) Neutrophils % Lymphocytes % Monocytes % Eosinophils % Basophils % Nucleated RBC % PT with INR INR PTT (Actin FS) VBG pH POC VBG pCO2 POC VBG pO2 Mixed VBG HCO3 Sodium 144 Potassium 3.5 Chloride 109 H Carbon Dioxide 27 Anion Gap 8 BUN 5 L Creatinine 0.6 Creat Clearance w eGFR > 60 Random Glucose 91 Lactic Acid Calcium 8.4 L Total Bilirubin 1.4 H AST 15 ALT 22 Alkaline Phosphatase 117 D Troponin I Total Protein 5.8 L Albumin 3.2 L Total Amylase Lipase Serum , Qual Urine Color Urine Appearance Urine pH Ur Specific [place] Urine Protein Urine Glucose (UA) Urine Ketones Urine Blood Urine Nitrite Urine Bilirubin Urine Urobilinogen Ur Leukocyte Esterase Active Medications Generic Name Dose Route Start Last Admin Trade Name Freq PRN Reason Stop Dose Admin Albuterol Sulfate 2 puff 11/20/17 15:32 Ventolin Hfa Inhaler - IH Q6H PRN SHORT OF BREATH/WHEEZING Cholestyramine Resin 4 gm 11/20/17 22:00 11/20/17 23:00 Questran Packet - PO 4 gm BID ANY Administration Dicyclomine HCl 10 mg 11/20/17 15:45 11/20/17 23:01 Bentyl - PO 10 mg BID ANY Administration Escitalopram Oxalate 20 mg 11/20/17 15:45 11/20/17 23:01 Lexapro - PO 20 mg BID ANY Administration Fentanyl 2 patch 11/20/17 16:15 11/20/17 16:20 Duragesic 100mcg Patch - TD Not Given Q72H [facility] Sodium Chloride 1,000 mls @ 100 mls/hr 11/20/17 15:45 11/21/17 05:07 Normal Saline - IV 100 mls/hr ASDIR ANY Administration Metronidazole 500 mg in 100 mls @ 100 mls/hr 11/21/17 10:00 Flagyl 500mg Premixed Ivpb - IVPB Q8H-IV ANY Lactobacillus Acidophilus 1 tab 11/21/17 10:00 Bacid - PO DAILY ANY Metoprolol Tartrate 50 mg 11/20/17 16:10 11/20/17 23:00 Lopressor - PO 50 mg BID ANY Administration Miscellaneous 1 each 11/20/17 16:14 Duragesic Patch Waste TD PRN PRN WASTE Montelukast Sodium 10 mg 11/20/17 22:00 11/20/17 23:00 Singulair - PO 10 mg HS ANY Administration Morphine Sulfate 2 mg 11/20/17 22:30 11/20/17 23:03 Morphine Sulfate IVPUSH 2 mg Q6H PRN Administration PAIN LEVEL 7 - 10 Nicotine 14 mg 11/21/17 10:00 Nicoderm Patch - TD DAILY ANY Pantoprazole Sodium 40 mg 11/21/17 10:00 Protonix - PO DAILY ANY Ranitidine HCl 150 mg 11/20/17 22:00 11/20/17 23:00 Zantac - PO 150 mg BID ANY Administration Simethicone 80 mg 11/20/17 15:32 Mylicon - PO Q12H PRN DYSPEPSIA Sucralfate 1 gm 11/20/17 15:45 11/20/17 23:01 Carafate - PO 1 gm BID ANY Administration ASSESSMENT/PLAN: 47 y/o patient with triple - 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 As per patient, her symptoms initially onset 3 days ago and has since worsened to numerous episodes of diarrhea. Patient underwent CT scan which shows colitis and patient is started on Metronidazole. Initially decrease in her platelet and wbc can be because of acute infection from colitis or from chemotherapy. Pt wbc has increased from 2.2 to 6.4 after getting neupogen last night and Plt has increased from 108 to 127. Till now patient has received chemo 6 times and got neupogen twice. Monitor cbc. Dispo: We will continue to follow the patient. Thank you for this consultative opportunity. Visit type - Emergency Visit Emergency Visit: Yes ED Registration Date: 11/20/17 Care time: The patient presented to the Emergency Department on the above date and was hospitalized for further evaluation of their emergent condition. - New Patient This patient is new to me today: Yes Date on this admission: 11/21/17 - Critical Care Critical Care patient: No
[2017-11-21] MEDS ORDERED: PT OWN MED DRAWER 7, Y5N ONE (09:37)
[2017-11-21] MEDS: METOPROLOL TARTRATE 50 MG TABLET (FP) PO SCH ×2 (10:00→21:17)
[2017-11-21] MEDS: PANTOPRAZOLE 40 MG TABLET (FP) PO SCH (10:00)
[2017-11-21] MEDS: LACTOBACILLUS ACIDOPHILUS 1 TABLET PO SCH (10:00)
[2017-11-21] MEDS: ESCITALOPRAM OXALATE 20 MG TABLET (FP) PO SCH ×2 (10:00→21:16)
[2017-11-21] MEDS: SUCRALFATE 1 GM TABLET (FP) PO SCH ×2 (10:00→21:16)
[2017-11-21] MEDS: RANITIDINE HCL 150 MG TABLET (FP) PO SCH ×2 (10:00→21:16)
[2017-11-21] MEDS: CHOLESTYRAMINE/SUCROSE 4 GM PACKET PO SCH ×2 (10:01→21:16)
[2017-11-21] MEDS: DICYCLOMINE HCL 10 MG CAPSULE PO SCH ×2 (10:01→21:16)
[2017-11-21] MEDS: NICOTINE 14 MG/24 HOURS TOPICAL PATCH TD SCH (10:01)
--- NOTE | 2017-11-21 11:06 | PN ---
Progress Note (short form) - Note Progress Note: CT report noted. Levaquin/Flagyl. Problem List - Problems (1) Diarrhea Code(s): R19.7 - DIARRHEA, UNSPECIFIED
[2017-11-21 14:14] LABS: ACANTHOCYTES 0; ANISOCYTOSIS 0; HELMET CELLS 0; HOWELL-JOLLY BODIES 0; MACROCYTOSIS 0; OVALOCYTE 0; PLATELET ESTIMATE DECREASED; ROULEAU 0; SICKELED CELLS 0; TARGET CELLS 0; TEAR DROP CELLS 0; TOXIC GRANULATION 0
--- NOTE | 2017-11-21 16:28 | EKG ---
Test Reason : Blood Pressure : / mmHG Vent. Rate : 093 BPM Atrial Rate : 093 BPM P-R Int : 126 ms QRS Dur : 086 ms QT Int : 386 ms P-R-T Axes : 066 030 033 degrees QTc Int : 479 ms POOR DATA QUALITY, INTERPRETATION MAY BE ADVERSELY AFFECTED NORMAL SINUS RHYTHM NORMAL ECG WHEN COMPARED WITH ECG OF 09-SEP-2017 14:50, NO SIGNIFICANT CHANGE WAS FOUND Confirmed by Ean Barcenas MD ([id number]) on 11/21/2017 4:27:17 PM Referred By: Confirmed By:Ean Barcenas MD
--- NOTE | 2017-11-21 16:55 | PN ---
Progress Note (short form) - Note Progress Note: ID consult dictated imp/reccd cdiff colitis- po vancomycin and iv flagyl advance diet as tolerated breast cancer on chemo psoriasis liver cirrhosis Problem List - Problems (1) C. difficile colitis Code(s): A04.72 - ENTEROCOLITIS D/T CLOSTRIDIUM DIFFICILE, NOT SPCF RECUR (2) Breast cancer Code(s): C50.919 - MALIGNANT NEOPLASM OF UNSP SITE OF UNSPECIFIED FEMALE BREAST (3) Psoriatic arthritis Code(s): L40.50 - ARTHROPATHIC PSORIASIS, UNSPECIFIED
--- NOTE | 2017-11-21 17:29 | PN ---
Teaching Attending Note Name of Resident: Arturo Cleveland ATTENDING PHYSICIAN STATEMENT I saw and evaluated the patient. I reviewed the resident's note and discussed the case with the resident. I agree with the resident's findings and plan as documented. SUBJECTIVE:47 year old female with triple negative breast cancer - S/P lumpectomy with axillary dissection. Residual axillary mass. Sonographically consistent with seroma. Begun on chemotherapy with taxol . Has required growth factor support with neupogen. Co morbid problems including psoriatic arthritis, C-spine fusion surgery and revision, chronic pain on analgesics chronic constipation, smoking, HTN, PVD, cirrhosis, hepatosplenomegaly and thrombocytopenia P.E. HEENT: RICK, EOM Intact Oropharynx: No thrush, No mucositis,edentulous Neck: Supple Nodes: Without adenopathy Breasts: Without masses,surgical scar left breast--9:00, and left axillary mass Cor: RSR,systolic murmur Lungs: Clear to P&A Abd: distended , hepatosplenomegaly Ext:No significant edema Skin: Integument intact, OBJECTIVE: Current problem of C. difficile enteritis. Plan: antibiotics per I.D. Hold chemotherapy for now. ASSESSMENT AND PLAN:
[2017-11-21] MEDS: VANCOMYCIN 250 MG/5 ML ORAL SOLUTION PO SCH ×2 (17:41→23:00)
--- NOTE | 2017-11-21 19:08 | CONS ---
DATE OF CONSULTATION: DATE OF DICTATION: 11/21/2017 INFECTIOUS DISEASE CONSULTATION REQUESTING PHYSICIAN: Josephine Groves M.D. CONSULTING PHYSICIAN: Ava Roland M.D. HISTORY OF PRESENT ILLNESS: This is a 47-year-old woman with past medical history of liver cirrhosis. She has a history of breast cancer as well. She is status post lumpectomy and has recently started chemotherapy in the last 6 weeks. She has a prior history of colitis, reports she had a UTI as well, all within the last 3 months. She comes to the hospital with a 3-day history of diarrhea, concerns that she has colitis. She has no fevers but is now saying that she is having up to 8 bowel movements a day, they are all nonbloody, and is having some cramps. PAST MEDICAL HISTORY: She has a past medical history of breast cancer, liver cirrhosis, hypertension, diabetes, anxiety, COPD. She has had a UTI in the past as well as gastritis and colitis. SURGICAL HISTORY: Notable for lumpectomy. She has had a laminectomy of the C-spine with hardware removal in 2009. 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 FAMILY HISTORY: Notable for lung cancer, thoracic aneurysm. She lives with her sister. ALLERGIES: NICKEL, TIMOLOL, and TITANIUM. MEDICATION: At home include sucralfate, Zofran, Bentyl, nicotine patch, simethicone, fentanyl patch, metformin, ranitidine, Singulair, metoprolol, lactobacillus, omeprazole, Lexapro, and ProAir. REVIEW OF SYSTEMS: She notes she is having 8 bouts of nonbloody diarrhea and that she has some cramping. She has no abdominal pain except when she has a bowel movement. PHYSICAL EXAMINATION: VITAL SIGNS: Temperature 98.3, she has had no fever, pulse 74, blood pressure 108/56, respiratory rate 18. HEENT: Normocephalic. Eyes are anicteric. She has no thrush. NECK: Supple. HEART: Regular rate and rhythm. She has a soft 2/6 systolic murmur. LUNGS: Clear. ABDOMEN: Soft, she has no distention, she has palpable liver edge, she has good bowel sounds. EXTREMITIES: Without edema. She has no evidence of any rash. LABORATORY: Notable for white count of 6.4, hemoglobin 11.2, platelets of 127. CAT scan showed liver cirrhosis with a big spleen, portal hypertension, and colitis. Her BUN and creatinine are normal and her total bilirubin is 1.4, liver enzymes are otherwise normal. Urinalysis is negative, and her stool C. difficile is both antigen and toxin positive. IMPRESSION: In summary, this is a 47-year-old woman with C. difficile colitis, breast cancer on chemotherapy, psoriasis, as well as liver cirrhosis. I would suggest we treat her with oral vancomycin and intravenous Flagyl and advance diet as tolerated. Would continue IV fluids as needed as well. She continues to have multiple bowel movements daily. She is somewhat nervous about taking oral vancomycin. This was discussed at length with her including the rationale why this would be the most appropriate treatment at this time. We will continue the IV Flagyl for now and hopefully stop that in the next 24 to 48 hours as she continues to improve. Breast cancer on chemotherapy, she has received Neupogen and is not neutropenic. Psoriasis noted as well as liver cirrhosis. Case was discussed with oncology. AVA ROLAND M.D. [id number]
[2017-11-21] MEDS: MONTELUKAST NA 10 MG TABLET PO SCH (21:16)
[2017-11-22] MEDS: SODIUM CHLORIDE 1,000 ML IV SCH ×2 (01:40→17:28)
[2017-11-22] MEDS: VANCOMYCIN 250 MG/5 ML ORAL SOLUTION PO SCH ×3 (06:09→17:25)
--- NOTE | 2017-11-22 07:50 | PN ---
Progress Note, Physician Chief Complaint: better today; hungry; advanced diet - Current Medication List Current Medications: Active Medications Albuterol Sulfate (Ventolin Hfa Inhaler -) 2 puff IH Q6H PRN PRN Reason: SHORT OF BREATH/WHEEZING Cholestyramine Resin (Questran Packet -) 4 gm PO BID [facility] Last Admin: 11/21/17 21:16 Dose: 4 gm Dicyclomine HCl (Bentyl -) 10 mg PO BID [facility] Last Admin: 11/21/17 21:16 Dose: 10 mg Escitalopram Oxalate (Lexapro -) 20 mg PO BID [facility] Last Admin: 11/21/17 21:16 Dose: 20 mg Fentanyl (Duragesic 100mcg Patch -) 2 patch TD Q72H [facility] Last Admin: 11/20/17 16:20 Dose: Not Given Sodium Chloride (Normal Saline -) 1,000 mls @ 100 mls/hr IV ASDIR [facility] Last Admin: 11/22/17 01:40 Dose: 100 mls/hr Metronidazole (Flagyl 500mg Premixed Ivpb -) 500 mg in 100 mls @ 100 mls/hr IVPB Q8H-IV [facility] Last Admin: 11/22/17 01:40 Dose: 100 mls/hr Lactobacillus Acidophilus (Bacid -) 1 tab PO DAILY [facility] Last Admin: 11/21/17 10:00 Dose: 1 tab Metoprolol Tartrate (Lopressor -) 50 mg PO BID [facility] Last Admin: 11/21/17 21:17 Dose: Not Given Miscellaneous (Duragesic Patch Waste) 1 each TD PRN PRN PRN Reason: WASTE Montelukast Sodium (Singulair -) 10 mg PO HS [facility] Last Admin: 11/21/17 21:16 Dose: 10 mg Morphine Sulfate (Morphine Sulfate) 2 mg IVPUSH Q6H PRN PRN Reason: PAIN LEVEL 7 - 10 Last Admin: 11/20/17 23:03 Dose: 2 mg Nicotine (Nicoderm Patch -) 14 mg TD DAILY [facility] Last Admin: 11/21/17 10:01 Dose: 14 mg Pantoprazole Sodium (Protonix -) 40 mg PO DAILY [facility] Last Admin: 11/21/17 10:00 Dose: 40 mg Ranitidine HCl (Zantac -) 150 mg PO BID [facility] Last Admin: 11/21/17 21:16 Dose: 150 mg Simethicone (Mylicon -) 80 mg PO Q12H PRN PRN Reason: DYSPEPSIA Sucralfate (Carafate -) 1 gm PO BID [facility] Last Admin: 11/21/17 21:16 Dose: 1 gm Vancomycin HCl (Vancomycin Oral Solution) 125 mg PO Q6HPO [facility] Last Admin: 11/22/17 06:09 Dose: 125 mg - Objective Vital Signs: Vital Signs Temperature 97.8 F 11/22/17 06:00 Pulse Rate 83 11/22/17 06:00 Respiratory Rate 20 11/22/17 06:00 Blood Pressure 128/70 11/22/17 06:00 O2 Sat by Pulse Oximetry (%) 98 11/21/17 21:00 Constitutional: Yes: No Distress, Calm Eyes: Yes: Conjunctiva Clear HENT: Yes: Atraumatic Neck: Yes: Supple Cardiovascular: Yes: Regular Rate and Rhythm Respiratory: Yes: CTA Bilaterally Gastrointestinal: Yes: Soft. No: Distention, Tenderness Genitourinary: No: CVA Tenderness - Left, CVA Tenderness - Right Musculoskeletal: No: Joint Stiffness, Joint Swelling Extremities: Yes: Erythema (legs, psoriasis, steroids cream ordered). No: Cold , Cool, Cyanosis, Deformity Edema: No Integumentary: Yes: Venous Stasis Changes Neurological: Yes: WNL, Alert, Oriented ...Motor Strength: WNL Psychiatric: Yes: WNL, Alert, Oriented. No: Agitated, Suicidal Ideation Labs: CBC, BMP 11/21/17 06:15 11/21/17 06:15 INR, PTT INR 1.07 (0.83-1.09) 11/20/17 11:30 - ....Imaging Other: Report Reviewed Assessment/Plan 11/20/17 12:33 The patient is a 47 year old female, with a significant past medical history of breast cancer s/p left lumpectomy, liver cirrhosis, hypertension, diabetes, anxiety and depression,admitted with diarrhea and generalized abdominal pain. Has h/o CDiff colitis treated in the past; CDiff + again s/p chemotherapy s/p Neupogen GI, ID f/u IV flagyl and vanco per ID & GI heme f/u for leukopenia, breast CA; s/p recent chemotx falls DVT PFX d/w pt and staff
[2017-11-22 08:36] LABS: BASO % 0.4 % (0-2.0); EOS % 0.3 % (0-4.5); HEMATOCRIT 32.5 % (32.4-45.2); LYMPH % 17.3 % (8-40); MCH 26.9 pg (25.7-33.7); MCHC 33.9 g/dl (32.0-36.0); MEAN CELL VOLUME 79.5 fl (80-96); MEAN PLT VOLUME 9.2 fl (7.5-11.1); MONO % 3.1 % (3.8-10.2); NEUT % 78.9 % (42.8-82.8); PLATELET COUNT 109 K/MM3 (134-434); RDW 19.3 % (11.6-15.6); WHITE BLOOD COUNT 6.8 K/mm3 (4.0-10.0)
[2017-11-22] MEDS ORDERED: PT OWN MED DRAWER 7, Y5N ONE ×3 (11:12→17:29)
[2017-11-22] MEDS: NICOTINE 14 MG/24 HOURS TOPICAL PATCH TD SCH (11:20)
[2017-11-22] MEDS: METOPROLOL TARTRATE 50 MG TABLET (FP) PO SCH ×2 (11:25→21:49)
[2017-11-22] MEDS: PANTOPRAZOLE 40 MG TABLET (FP) PO SCH (11:25)
[2017-11-22] MEDS: LACTOBACILLUS ACIDOPHILUS 1 TABLET PO SCH (11:26)
[2017-11-22] MEDS: SUCRALFATE 1 GM TABLET (FP) PO SCH ×2 (11:26→21:49)
[2017-11-22] MEDS: ESCITALOPRAM OXALATE 20 MG TABLET (FP) PO SCH ×2 (11:26→21:49)
[2017-11-22] MEDS: CHOLESTYRAMINE/SUCROSE 4 GM PACKET PO SCH ×2 (11:26→21:48)
[2017-11-22] MEDS: SIMETHICONE 80 MG TAB.CHEW (FP) PO PRN (11:26)
[2017-11-22] MEDS: DICYCLOMINE HCL 10 MG CAPSULE PO SCH ×2 (11:27→21:49)
[2017-11-22] MEDS: RANITIDINE HCL 150 MG TABLET (FP) PO SCH ×2 (11:35→21:49)
[2017-11-22 14:13] VITALS: BMI 22.4
--- NOTE | 2017-11-22 15:31 | PN ---
Progress Note (short form) - Note Progress Note: doing well diarrhea resolving Vital Signs Period Temp Pulse Resp BP Sys/Wing Pulse Ox Last 24 Hr 97.8 F-98.2 F 69-83 18-20 97-128/58-70 98 cor-rrr lungs clear abd soft,nt ext no edema CBC, BMP 11/22/17 07:30 11/21/17 06:15 Microbiology 11/20/17 11:31 Blood - Peripheral Venous Blood Culture - Preliminary NO GROWTH OBTAINED AFTER 48 HOURS, INCUBATION TO CONTINUE FOR 3 DAYS. 11/20/17 11:31 Blood - Peripheral Venous Blood Culture - Preliminary NO GROWTH OBTAINED AFTER 48 HOURS, INCUBATION TO CONTINUE FOR 3 DAYS. 11/21/17 03:33 Stool Cryptosporidium Antigen - Final 11/21/17 03:33 Stool Giardia Antigen (VINICIUS) - Final 11/20/17 15:12 Urine - Urine Clean Catch Urine Culture - Final NO GROWTH OBTAINED 11/20/17 15:12 Stool Clostridium difficile Antigen (VINICIUS) - Final 11/20/17 15:12 Stool Clostridium difficile Toxin Assay - Final imp/reccd cdiff colitis- po vancomycin 10 to 14 days, d/c flagyl advance diet as tolerated breast cancer on chemo psoriasis liver cirrhosis please call back if needed Problem List - Problems (1) C. difficile colitis Code(s): A04.72 - ENTEROCOLITIS D/T CLOSTRIDIUM DIFFICILE, NOT SPCF RECUR (2) Breast cancer Code(s): C50.919 - MALIGNANT NEOPLASM OF UNSP SITE OF UNSPECIFIED FEMALE BREAST (3) Psoriatic arthritis Code(s): L40.50 - ARTHROPATHIC PSORIASIS, UNSPECIFIED
--- NOTE | 2017-11-22 18:18 | PN ---
Progress Note (short form) - Note Progress Note: Patient seen and examined No bowel movement as yet today Less abdominal pains or discomfort Last Vital Signs Temp Pulse Resp BP Pulse Ox 98.2 F 69 18 121/68 98 11/22/17 14:18 11/22/17 14:18 11/22/17 14:18 11/22/17 14:18 11/22/17 09:00 HEENT: RICK, EOM Intact Oropharynx: No thrush, No mucositis,edentulous Cor: RSR, No murmurs, No gallops Lungs: Clear to P&A Abd: Soft, Normal bowel sounds, No organomegaly Ext:No significant edema Skin: No rashes, Integument intact CBC, BMP 11/22/17 07:30 11/21/17 06:15 Current Medications Generic Name Dose Route Start Last Admin Trade Name Freq PRN Reason Stop Dose Admin Albuterol Sulfate 2 puff 11/20/17 15:32 Ventolin Hfa Inhaler - IH Q6H PRN SHORT OF BREATH/WHEEZING Cholestyramine Resin 4 gm 11/20/17 22:00 11/22/17 11:26 Questran Packet - PO 4 gm BID ANY Administration Dicyclomine HCl 10 mg 11/20/17 15:45 11/22/17 11:27 Bentyl - PO 10 mg BID ANY Administration Escitalopram Oxalate 20 mg 11/20/17 15:45 11/22/17 11:26 Lexapro - PO 20 mg BID ANY Administration Fentanyl 2 patch 11/20/17 16:15 11/20/17 16:20 Duragesic 100mcg Patch - TD Not Given Q72H ANY Sodium Chloride 1,000 mls @ 100 mls/hr 11/20/17 15:45 11/22/17 17:28 Normal Saline - IV 100 mls/hr ASDIR ANY Administration Metronidazole 500 mg in 100 mls @ 100 mls/hr 11/21/17 10:00 11/22/17 17:25 Flagyl 500mg Premixed Ivpb - IVPB 100 mls/hr Q8H-IV ANY Administration Lactobacillus Acidophilus 1 tab 11/21/17 10:00 11/22/17 11:26 Bacid - PO 1 tab DAILY ANY Administration Metoprolol Tartrate 50 mg 11/20/17 16:10 11/22/17 11:25 Lopressor - PO 50 mg BID [facility] Administration Miscellaneous 1 each 11/20/17 16:14 Duragesic Patch Waste TD PRN PRN WASTE Montelukast Sodium 10 mg 11/20/17 22:00 11/21/17 21:16 Singulair - PO 10 mg HS ANY Administration Morphine Sulfate 2 mg 11/20/17 22:30 11/20/17 23:03 Morphine Sulfate IVPUSH 2 mg Q6H PRN Administration PAIN LEVEL 7 - 10 Nicotine 14 mg 11/21/17 10:00 11/22/17 11:20 Nicoderm Patch - TD 14 mg DAILY ANY Administration Pantoprazole Sodium 40 mg 11/21/17 10:00 11/22/17 11:25 Protonix - PO 40 mg DAILY [facility] Administration Ranitidine HCl 150 mg 11/20/17 22:00 11/22/17 11:35 Zantac - PO 150 mg BID [facility] Administration Simethicone 80 mg 11/20/17 15:32 11/22/17 11:26 Mylicon - PO 80 mg Q12H PRN Administration DYSPEPSIA Spironolactone 100 mg 11/23/17 10:00 Aldactone - PO DAILY [facility] Sucralfate 1 gm 11/20/17 15:45 11/22/17 11:26 Carafate - PO 1 gm BID [facility] Administration Triamcinolone Acetonide 1 applic 11/22/17 22:00 Aristocort 0.5% Ointment - TP BID [facility] Vancomycin HCl 125 mg 11/21/17 18:00 11/22/17 17:25 Vancomycin Oral Solution PO 125 mg Q6HPO ANY Administration Impression: C. diff enteritis Breast ca Chemotherapy Plan: Holding chemotherapy Continuing with antibiotic therapy
[2017-11-22] MEDS: MONTELUKAST NA 10 MG TABLET PO SCH (21:49)
[2017-11-22] MEDS: TRIAMCINOLONE ACET 0.5% OINT 15 GM TUBE TP SCH (21:50)
[2017-11-23] MEDS: SODIUM CHLORIDE 1,000 ML IV SCH ×3 (00:04→16:43)
[2017-11-23] MEDS: VANCOMYCIN 250 MG/5 ML ORAL SOLUTION PO SCH ×5 (00:06→23:43)
[2017-11-23] MEDS: SIMETHICONE 80 MG TAB.CHEW (FP) PO PRN ×2 (06:59→22:40)
[2017-11-23 07:08] LABS: BASO % 0.6 % (0-2.0); EOS % 0.7 % (0-4.5); HEMATOCRIT 27.7 % (32.4-45.2); HEMOGLOBIN 9.4 GM/dL (10.7-15.3); LYMPH % 22.1 % (8-40); MCH 27.2 pg (25.7-33.7); MEAN PLT VOLUME 9.4 fl (7.5-11.1); MONO % 5.4 % (3.8-10.2); NEUT % 71.2 % (42.8-82.8); PLATELET COUNT 98 K/MM3 (134-434); RBC 3.46 M/mm3 (3.60-5.2); RDW 19.6 % (11.6-15.6); WHITE BLOOD COUNT 4.9 K/mm3 (4.0-10.0)
[2017-11-23 07:39] LABS: ALBUMIN 2.9 g/dl (3.4-5.0); ANION GAP 8 (8-16); BLOOD UREA NITROGEN 3 mg/dL (7-18); CALCIUM 8.3 mg/dL (8.5-10.1); CHLORIDE 113 mmol/L (98-107); CO2 27 mmol/L (21-32); GLUCOSE,RANDOM 102 mg/dL (74-106); POTASSIUM 3.4 mmol/L (3.5-5.1); SODIUM 148 mmol/L (136-145)
[2017-11-23 07:43] LABS: ALK PHOS 97 U/L (45-117); BILIRUBIN,TOTAL 0.6 mg/dL (0.2-1.0); CREATININE 0.5 mg/dL (0.55-1.02); SGOT/AST 13 U/L (15-37); SGPT/ALT 18 U/L (12-78)
[2017-11-23] MEDS ORDERED: PT OWN MED DRAWER 7, Y5N ONE (09:33)
[2017-11-23] MEDS: RANITIDINE HCL 150 MG TABLET (FP) PO SCH ×2 (09:41→22:35)
[2017-11-23] MEDS: ESCITALOPRAM OXALATE 20 MG TABLET (FP) PO SCH ×2 (09:41→22:34)
[2017-11-23] MEDS: SPIRONOLACTONE 25 MG TABLET (FP) PO SCH (09:41)
[2017-11-23] MEDS: DICYCLOMINE HCL 10 MG CAPSULE PO SCH ×2 (09:42→22:34)
[2017-11-23] MEDS: NICOTINE 14 MG/24 HOURS TOPICAL PATCH TD SCH (09:42)
[2017-11-23] MEDS: PANTOPRAZOLE 40 MG TABLET (FP) PO SCH (09:42)
[2017-11-23] MEDS: METOPROLOL TARTRATE 50 MG TABLET (FP) PO SCH ×2 (09:42→22:35)
[2017-11-23] MEDS: SUCRALFATE 1 GM TABLET (FP) PO SCH ×2 (09:42→22:34)
[2017-11-23] MEDS: LACTOBACILLUS ACIDOPHILUS 1 TABLET PO SCH (09:42)
[2017-11-23] MEDS: CHOLESTYRAMINE/SUCROSE 4 GM PACKET PO SCH ×2 (09:43→22:35)
[2017-11-23] MEDS: TRIAMCINOLONE ACET 0.5% OINT 15 GM TUBE TP SCH ×2 (09:51→22:34)
[2017-11-23 11:32] LABS: PLATELET ESTIMATE SLT DECREASE
--- NOTE | 2017-11-23 12:44 | PN ---
Progress Note, Physician Chief Complaint: feels better but still with some abdominal c/o, diarrhea - Current Medication List Current Medications: Active Medications Albuterol Sulfate (Ventolin Hfa Inhaler -) 2 puff IH Q6H PRN PRN Reason: SHORT OF BREATH/WHEEZING Cholestyramine Resin (Questran Packet -) 4 gm PO BID [facility] Last Admin: 11/23/17 09:43 Dose: 4 gm Dicyclomine HCl (Bentyl -) 10 mg PO BID [facility] Last Admin: 11/23/17 09:42 Dose: 10 mg Escitalopram Oxalate (Lexapro -) 20 mg PO BID [facility] Last Admin: 11/23/17 09:41 Dose: 20 mg Fentanyl (Duragesic 100mcg Patch -) 2 patch TD Q72H [facility] Last Admin: 11/20/17 16:20 Dose: Not Given Sodium Chloride (Normal Saline -) 1,000 mls @ 100 mls/hr IV ASDIR [facility] Last Admin: 11/23/17 00:04 Dose: 100 mls/hr Metronidazole (Flagyl 500mg Premixed Ivpb -) 500 mg in 100 mls @ 100 mls/hr IVPB Q8H-IV [facility] Last Admin: 11/23/17 09:54 Dose: Not Given Lactobacillus Acidophilus (Bacid -) 1 tab PO DAILY [facility] Last Admin: 11/23/17 09:42 Dose: 1 tab Metoprolol Tartrate (Lopressor -) 50 mg PO BID [facility] Last Admin: 11/23/17 09:42 Dose: 50 mg Miscellaneous (Duragesic Patch Waste) 1 each TD PRN PRN PRN Reason: WASTE Montelukast Sodium (Singulair -) 10 mg PO [facility] Last Admin: 11/22/17 21:49 Dose: 10 mg Morphine Sulfate (Morphine Sulfate) 2 mg IVPUSH Q6H PRN PRN Reason: PAIN LEVEL 7 - 10 Last Admin: 11/20/17 23:03 Dose: 2 mg Nicotine (Nicoderm Patch -) 14 mg TD DAILY [facility] Last Admin: 11/23/17 09:42 Dose: 14 mg Pantoprazole Sodium (Protonix -) 40 mg PO DAILY [facility] Last Admin: 11/23/17 09:42 Dose: 40 mg Potassium Chloride (K-Dur -) 10 meq PO ONCE ONE Stop: 11/23/17 12:39 Ranitidine HCl (Zantac -) 150 mg PO BID [facility] Last Admin: 11/23/17 09:41 Dose: 150 mg Simethicone (Mylicon -) 80 mg PO Q12H PRN PRN Reason: DYSPEPSIA Last Admin: 11/23/17 06:59 Dose: 80 mg Spironolactone (Aldactone -) 100 mg PO DAILY [facility] Last Admin: 11/23/17 09:41 Dose: 100 mg Sucralfate (Carafate -) 1 gm PO BID [facility] Last Admin: 11/23/17 09:42 Dose: 1 gm Triamcinolone Acetonide (Aristocort 0.5% Ointment -) 1 applic TP BID [facility] Last Admin: 11/23/17 09:51 Dose: 1 applic Vancomycin HCl (Vancomycin Oral Solution) 125 mg PO Q6HPO [facility] Last Admin: 11/23/17 06:04 Dose: 125 mg - Objective Vital Signs: Vital Signs Temperature 98.4 F 11/23/17 09:58 Pulse Rate 79 11/23/17 09:58 Respiratory Rate 18 11/23/17 09:58 Blood Pressure 125/77 11/23/17 09:58 O2 Sat by Pulse Oximetry (%) 98 11/22/17 21:00 Constitutional: Yes: No Distress, Calm Eyes: Yes: Conjunctiva Clear HENT: Yes: Atraumatic Neck: Yes: Supple Cardiovascular: Yes: Regular Rate and Rhythm Respiratory: Yes: CTA Bilaterally Gastrointestinal: Yes: Soft. No: Tenderness Genitourinary: No: CVA Tenderness - Left, CVA Tenderness - Right Musculoskeletal: No: Joint Stiffness, Joint Swelling Extremities: No: Cold, Cool, Cyanosis Edema: No Integumentary: Yes: Rash (psoriasis legs) Neurological: Yes: WNL, Alert, Oriented ...Motor Strength: WNL Psychiatric: Yes: WNL, Alert, Oriented. No: Agitated, Suicidal Ideation Labs: CBC, BMP 11/23/17 06:30 11/23/17 06:30 INR, PTT INR 1.07 (0.83-1.09) 11/20/17 11:30 - ....Imaging Other: Report Reviewed Assessment/Plan 11/20/17 12:33 The patient is a 47 year old female, with a significant past medical history of breast cancer s/p left lumpectomy, liver cirrhosis, hypertension, diabetes, anxiety and depression,admitted with diarrhea and generalized abdominal pain. diagnosed with recurrent CDiff colitis s/p chemotherapy s/p Neupogen GI, ID f/u IV flagyl and vanco per ID & GI heme f/u for leukopenia, breast CA; s/p recent chemotx falls DVT PFX d/w pt and staff
[2017-11-23] MEDS ORDERED: POTASSIUM CHLORIDE TABS 10 MEQ TABLET.ER (FP) PO ONE (13:30)
[2017-11-23] MEDS: fentaNYL 100mcg/hr PATCH.TD72 TD SCH (16:44)
--- NOTE | 2017-11-23 17:55 | PN ---
Progress Note (short form) - Note Progress Note: Patient seen and examined Less cramps and abdominal pains Less diarrhea Last Vital Signs Temp Pulse Resp BP Pulse Ox 99.1 F 64 18 136/79 98 11/23/17 14:09 11/23/17 14:09 11/23/17 14:09 11/23/17 14:09 11/23/17 09:00 HEENT: RICK, EOM Intact Oropharynx: No thrush, No mucositis Breast - s/p lumpectomy Cor: RSR, No murmurs, No gallops Lungs: Clear to P&A Abd: Soft, Normal bowel sounds, No organomegaly Ext:No significant edema Skin: psoriasis CBC, BMP 11/23/17 06:30 11/23/17 06:30 Current Medications Generic Name Dose Route Start Last Admin Trade Name Freq PRN Reason Stop Dose Admin Albuterol Sulfate 2 puff 11/20/17 15:32 Ventolin Hfa Inhaler - IH Q6H PRN SHORT OF BREATH/WHEEZING Cholestyramine Resin 4 gm 11/20/17 22:00 11/23/17 09:43 Questran Packet - PO 4 gm BID ANY Administration Dicyclomine HCl 10 mg 11/20/17 15:45 11/23/17 09:42 Bentyl - PO 10 mg BID ANY Administration Escitalopram Oxalate 20 mg 11/20/17 15:45 11/23/17 09:41 Lexapro - PO 20 mg BID ANY Administration Fentanyl 2 patch 11/20/17 16:15 11/23/17 16:44 Duragesic 100mcg Patch - TD 2 patch Q72H ANY Administration Sodium Chloride 1,000 mls @ 100 mls/hr 11/20/17 15:45 11/23/17 16:43 Normal Saline - IV Not Given ASDIR ANY Lactobacillus Acidophilus 1 tab 11/21/17 10:00 11/23/17 09:42 Bacid - PO 1 tab DAILY ANY Administration Metoprolol Tartrate 50 mg 11/20/17 16:10 11/23/17 09:42 Lopressor - PO 50 mg BID ANY Administration Miscellaneous 1 each 11/20/17 16:14 11/23/17 16:54 Duragesic Patch Waste TD 1 each PRN PRN Administration WASTE Montelukast Sodium 10 mg 11/20/17 22:00 11/22/17 21:49 Singulair - PO 10 mg HS ANY Administration Morphine Sulfate 2 mg 11/20/17 22:30 11/20/17 23:03 Morphine Sulfate IVPUSH 2 mg Q6H PRN Administration PAIN LEVEL 7 - 10 Nicotine 14 mg 11/21/17 10:00 11/23/17 09:42 Nicoderm Patch - TD 14 mg DAILY ANY Administration Pantoprazole Sodium 40 mg 11/21/17 10:00 11/23/17 09:42 Protonix - PO 40 mg DAILY ANY Administration Ranitidine HCl 150 mg 11/20/17 22:00 11/23/17 09:41 Zantac - PO 150 mg BID ANY Administration Simethicone 80 mg 11/20/17 15:32 11/23/17 06:59 Mylicon - PO 80 mg Q12H PRN Administration DYSPEPSIA Spironolactone 100 mg 11/23/17 10:00 11/23/17 09:41 Aldactone - PO 100 mg DAILY ANY Administration Sucralfate 1 gm 11/20/17 15:45 11/23/17 09:42 Carafate - PO 1 gm BID ANY Administration Triamcinolone Acetonide 1 applic 11/22/17 22:00 11/23/17 09:51 Aristocort 0.5% Ointment - TP 1 applic BID ANY Administration Vancomycin HCl 125 mg 11/21/17 18:00 11/23/17 14:09 Vancomycin Oral Solution PO 125 mg Q6HPO ANY Administration Impression: Breast ca C. difficile enteritis Cirrhosis Psoriasis Plan: P.O.Vancomycin per I.D. x 10--14 days Due in one week for chemotherapy- if stable [facility]
[2017-11-23] MEDS: MONTELUKAST NA 10 MG TABLET PO SCH (22:35)
[2017-11-24] MEDS: VANCOMYCIN 250 MG/5 ML ORAL SOLUTION PO SCH ×3 (06:51→17:12)
[2017-11-24 07:23] LABS: BASO % 0.6 % (0-2.0); EOS % 1.2 % (0-4.5); HEMATOCRIT 25.1 % (32.4-45.2); HEMOGLOBIN 8.7 GM/dL (10.7-15.3); LYMPH % 40.1 % (8-40); MCH 27.4 pg (25.7-33.7); MCHC 34.5 g/dl (32.0-36.0); MEAN CELL VOLUME 79.3 fl (80-96); MEAN PLT VOLUME 9.4 fl (7.5-11.1); MONO % 9.1 % (3.8-10.2); PLATELET COUNT 95 K/MM3 (134-434); RBC 3.16 M/mm3 (3.60-5.2); RDW 20.1 % (11.6-15.6); WHITE BLOOD COUNT 2.9 K/mm3 (4.0-10.0)
[2017-11-24 08:14] LABS: ALBUMIN 2.7 g/dl (3.4-5.0); ANION GAP 7 (8-16); BLOOD UREA NITROGEN 4 mg/dL (7-18); CALCIUM 8.2 mg/dL (8.5-10.1); CHLORIDE 115 mmol/L (98-107); CO2 28 mmol/L (21-32); CREATININE 0.5 mg/dL (0.55-1.02); GLUCOSE,RANDOM 75 mg/dL (74-106); POTASSIUM 3.6 mmol/L (3.5-5.1); SGOT/AST 10 U/L (15-37); SGPT/ALT 17 U/L (12-78); SODIUM 150 mmol/L (136-145)
[2017-11-24 08:17] LABS: ALK PHOS 83 U/L (45-117); BILIRUBIN,TOTAL 0.5 mg/dL (0.2-1.0); TOT PROT 4.6 g/dl (6.4-8.2)
--- NOTE | 2017-11-24 09:45 | PN ---
Progress Note, Physician Chief Complaint: feels better but pancytopenia today (all counts down, no bleed) and Na 150; will give low dose IVF HS x24h and d/w heme will give neupogen x1 f/u labs - Current Medication List Current Medications: Active Medications Albuterol Sulfate (Ventolin Hfa Inhaler -) 2 puff IH Q6H PRN PRN Reason: SHORT OF BREATH/WHEEZING Cholestyramine Resin (Questran Packet -) 4 gm PO BID [facility] Last Admin: 11/23/17 22:35 Dose: 4 gm Dicyclomine HCl (Bentyl -) 10 mg PO BID [facility] Last Admin: 11/23/17 22:34 Dose: 10 mg Escitalopram Oxalate (Lexapro -) 20 mg PO BID [facility] Last Admin: 11/23/17 22:34 Dose: 20 mg Fentanyl (Duragesic 100mcg Patch -) 2 patch TD Q72H [facility] Last Admin: 11/23/17 16:44 Dose: 2 patch Lactobacillus Acidophilus (Bacid -) 1 tab PO DAILY [facility] Last Admin: 11/23/17 09:42 Dose: 1 tab Metoprolol Tartrate (Lopressor -) 50 mg PO BID [facility] Last Admin: 11/23/17 22:35 Dose: 50 mg Miscellaneous (Duragesic Patch Waste) 1 each TD PRN PRN PRN Reason: WASTE Last Admin: 11/23/17 16:54 Dose: 1 each Montelukast Sodium (Singulair -) 10 mg PO HS [facility] Last Admin: 11/23/17 22:35 Dose: 10 mg Morphine Sulfate (Morphine Sulfate) 2 mg IVPUSH Q6H PRN PRN Reason: PAIN LEVEL 7 - 10 Last Admin: 11/20/17 23:03 Dose: 2 mg Nicotine (Nicoderm Patch -) 14 mg TD DAILY [facility] Last Admin: 11/23/17 09:42 Dose: 14 mg Pantoprazole Sodium (Protonix -) 40 mg PO DAILY [facility] Last Admin: 11/23/17 09:42 Dose: 40 mg Ranitidine HCl (Zantac -) 150 mg PO BID [facility] Last Admin: 11/23/17 22:35 Dose: 150 mg Simethicone (Mylicon -) 80 mg PO Q12H PRN PRN Reason: DYSPEPSIA Last Admin: 11/23/17 22:40 Dose: 80 mg Spironolactone (Aldactone -) 100 mg PO DAILY [facility] Last Admin: 11/23/17 09:41 Dose: 100 mg Sucralfate (Carafate -) 1 gm PO BID [facility] Last Admin: 11/23/17 22:34 Dose: 1 gm Triamcinolone Acetonide (Aristocort 0.5% Ointment -) 1 applic TP BID [facility] Last Admin: 11/23/17 22:34 Dose: 1 applic Vancomycin HCl (Vancomycin Oral Solution) 125 mg PO Q6HPO [facility] Last Admin: 11/24/17 06:51 Dose: 125 mg - Objective Vital Signs: Vital Signs Temperature 97.8 F 11/24/17 06:29 Pulse Rate 63 11/24/17 06:29 Respiratory Rate 20 11/24/17 06:29 Blood Pressure 125/63 11/24/17 06:29 O2 Sat by Pulse Oximetry (%) 98 11/23/17 21:00 Constitutional: Yes: No Distress, Calm Eyes: Yes: Conjunctiva Clear HENT: Yes: Atraumatic Neck: Yes: Supple Cardiovascular: Yes: Regular Rate and Rhythm Respiratory: Yes: CTA Bilaterally Gastrointestinal: Yes: Soft. No: Ascites, Tenderness Genitourinary: No: CVA Tenderness - Left, CVA Tenderness - Right Musculoskeletal: No: Joint Stiffness, Joint Swelling Extremities: No: Cold, Cool, Cyanosis Edema: No Integumentary: No: Pressure Ulcer, Venous Stasis Changes Neurological: Yes: WNL, Alert, Oriented ...Motor Strength: WNL Psychiatric: Yes: WNL, Alert, Oriented. No: Agitated, Suicidal Ideation Labs: CBC, BMP 11/24/17 06:15 11/24/17 06:15 INR, PTT INR 1.07 (0.83-1.09) 11/20/17 11:30 - ....Imaging Other: Report Reviewed Assessment/Plan 11/20/17 12:33 The patient is a 47 year old female, with a significant past medical history of breast cancer s/p left lumpectomy, liver cirrhosis, hypertension, diabetes, anxiety and depression,admitted with diarrhea and generalized abdominal pain. diagnosed with recurrent CDiff colitis s/p chemotherapy s/p Neupogen f/u labs po water; eats regular food GI, ID f/u IV flagyl and vanco per ID & GI heme f/u for leukopenia, breast CA; s/p recent chemotx falls DVT PFX d/w pt and staff
[2017-11-24] MEDS ORDERED: TBO-FILGRASTIM 300 MCG/0.5 ML DISP.SYRINGE SQ ONE (10:03)
[2017-11-24] MEDS ORDERED: PT OWN MED DRAWER 7, Y5N ONE ×2 (10:12→16:55)
[2017-11-24] MEDS: ESCITALOPRAM OXALATE 20 MG TABLET (FP) PO SCH ×2 (10:20→22:00)
[2017-11-24] MEDS: DICYCLOMINE HCL 10 MG CAPSULE PO SCH ×2 (10:20→22:00)
[2017-11-24] MEDS: RANITIDINE HCL 150 MG TABLET (FP) PO SCH ×2 (10:20→22:01)
[2017-11-24] MEDS: PANTOPRAZOLE 40 MG TABLET (FP) PO SCH (10:20)
[2017-11-24] MEDS: SPIRONOLACTONE 25 MG TABLET (FP) PO SCH (10:20)
[2017-11-24] MEDS: SUCRALFATE 1 GM TABLET (FP) PO SCH ×2 (10:20→22:00)
[2017-11-24] MEDS: NICOTINE 14 MG/24 HOURS TOPICAL PATCH TD SCH (10:20)
[2017-11-24] MEDS: CHOLESTYRAMINE/SUCROSE 4 GM PACKET PO SCH ×2 (10:21→22:01)
[2017-11-24] MEDS: LACTOBACILLUS ACIDOPHILUS 1 TABLET PO SCH (10:29)
[2017-11-24] MEDS: METOPROLOL TARTRATE 50 MG TABLET (FP) PO SCH ×2 (10:29→22:01)
--- NOTE | 2017-11-24 11:20 | PN ---
Physical Exam: SUBJECTIVE: Patient seen and examined feels better denies pain abdomen, nausea, vomiting Denies fever and chills. states diarrhoea has stopped. No event overnight. OBJECTIVE: Vital Signs Period Temp Pulse Resp BP Sys/Wing Pulse Ox Last 24 Hr 97.8 F-99.1 F 63-70 18-20 95-136/46-79 98 Well developed, well nourished. Awake and alert. No acute distress. HEENT: Moist mucous membranes. Oropharynx is clear. teeth absent NECK: Supple. Full ROM. CARDIOVASCULAR:Regular rate and rhythm. PULMONARY: Lungs clear to auscultation bilaterally. No wheezing, rales or rhonchi. chemo port present BREAST: no mass palpable. surgery scar on left side present. ABDOMINAL: non tender, Non-distended, no guarduing, no rigidity, No rebound. Normoactive bowel sounds. EXTREMITIES: No cyanosis. No clubbing. No edema. No calf tenderness. SKIN: Warm and dry multiple psoriatic lesions present. NEUROLOGICAL: Alert, awake, Laboratory Results - last 24 hr 11/23/17 11/24/17 11/24/17 06:30 06:15 06:15 WBC 2.9 L RBC 3.16 L Hgb 8.7 L Hct 25.1 L MCV 79.3 L MCH 27.4 MCHC 34.5 RDW 20.1 H Plt Count 95 L MPV 9.4 Absolute Neuts (auto) 1.4 Total Counted 100 Neutrophils % 49.0 D Neutrophils % (Manual) 70.0 D Band Neutrophils % 1.0 Lymphocytes % 40.1 H D Lymphocytes % (Manual) 21.0 D Monocytes % 9.1 Monocytes % (Manual) 6 D Eosinophils % 1.2 Eosinophils % (Manual) 2.0 D Basophils % 0.6 Nucleated RBC % 0 Platelet Estimate Slt decrease Sodium 150 H Potassium 3.6 Chloride 115 H Carbon Dioxide 28 Anion Gap 7 L BUN 4 L Creatinine 0.5 L Creat Clearance w eGFR > 60 Random Glucose 75 Calcium 8.2 L Total Bilirubin 0.5 AST 10 L ALT 17 Alkaline Phosphatase 83 D Total Protein 4.6 L Albumin 2.7 L Active Medications Generic Name Dose Route Start Last Admin Trade Name Freq PRN Reason Stop Dose Admin Albuterol Sulfate 2 puff 11/20/17 15:32 Ventolin Hfa Inhaler - IH Q6H PRN SHORT OF BREATH/WHEEZING Cholestyramine Resin 4 gm 11/20/17 22:00 11/24/17 10:21 Questran Packet - PO 4 gm BID ANY Administration Dicyclomine HCl 10 mg 11/20/17 15:45 11/24/17 10:20 Bentyl - PO 10 mg BID ANY Administration Escitalopram Oxalate 20 mg 11/20/17 15:45 11/24/17 10:20 Lexapro - PO 20 mg BID ANY Administration Fentanyl 2 patch 11/20/17 16:15 11/23/17 16:44 Duragesic 100mcg Patch - TD 2 patch Q72H ANY Administration Sodium Chloride 1,000 mls @ 75 mls/hr 11/24/17 10:30 1/2 Normal Saline IV 11/25/17 23:59 ASDIR [facility] Lactobacillus Acidophilus 1 tab 11/21/17 10:00 11/24/17 10:29 Bacid - PO 1 tab DAILY ANY Administration Metoprolol Tartrate 50 mg 11/20/17 16:10 11/24/17 10:29 Lopressor - PO Not Given BID [facility] Miscellaneous 1 each 11/20/17 16:14 11/23/17 16:54 Duragesic Patch Waste TD 1 each PRN PRN Administration WASTE Montelukast Sodium 10 mg 11/20/17 22:00 11/23/17 22:35 Singulair - PO 10 mg HS ANY Administration Nicotine 14 mg 11/21/17 10:00 11/24/17 10:20 Nicoderm Patch - TD 14 mg DAILY ANY Administration Pantoprazole Sodium 40 mg 11/21/17 10:00 11/24/17 10:20 Protonix - PO 40 mg DAILY ANY Administration Ranitidine HCl 150 mg 11/20/17 22:00 11/24/17 10:20 Zantac - PO 150 mg BID ANY Administration Simethicone 80 mg 11/20/17 15:32 11/23/17 22:40 Mylicon - PO 80 mg Q12H PRN Administration DYSPEPSIA Spironolactone 100 mg 11/23/17 10:00 11/24/17 10:20 Aldactone - PO Not Given DAILY [facility] Sucralfate 1 gm 11/20/17 15:45 11/24/17 10:20 Carafate - PO 1 gm BID ANY Administration Triamcinolone Acetonide 1 applic 11/22/17 22:00 11/23/17 22:34 Aristocort 0.5% Ointment - TP 1 applic BID [facility] Administration Vancomycin HCl 125 mg 11/21/17 18:00 11/24/17 06:51 Vancomycin Oral Solution PO 125 mg Q6HPO ANY Administration ASSESSMENT/PLAN: 47 y/o patient with triple - 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 As per patient, her symptoms initially onset 3 days ago and has since worsened to numerous episodes of diarrhea. Patient underwent CT scan which shows colitis and patient is started on Metronidazole. Stool culture was positive for c.diff. Over the course of days patient condition improved. Diarrhoea has resolved. Patient is Vancomycin for c.diff. Patient has drop in her wbc which could be because chemo. She is afebrile and diarrhoea has resolved. We will give her neupogen. Patient hct dropped over the hospital course which could be because of diarrhoea. Patient denies active bleed and dark color stool. We will order stool for occult blood and give her one unit of bllod tomorrow before discharge. Plan discussed with Dr. Groves. Visit type - Emergency Visit Emergency Visit: Yes ED Registration Date: 11/20/17 Care time: The patient presented to the Emergency Department on the above date and was hospitalized for further evaluation of their emergent condition. - New Patient This patient is new to me today: Yes Date on this admission: 11/24/17 - Critical Care Critical Care patient: No
--- NOTE | 2017-11-24 11:32 | PN ---
Teaching Attending Note Name of Resident: Arturo Cleveland ATTENDING PHYSICIAN STATEMENT I saw and evaluated the patient. I reviewed the resident's note and discussed the case with the resident. I agree with the resident's findings and plan as documented. SUBJECTIVE: Patient seen and examined Falling WBC secondary to chemotherapy with taxol and infection in background of cirrhosis. For neupogen therapy. Similarly fall in Hb/Hct likely reflective of dehydrated Hb/Hct on admission and subsequent fall with chemotherapy effect and c. difficile Will however check stool guaic ( although patient describes no blood per rectum ) If Hb/Hct is stable can be discharged with outpatient follow up. If falling, can be transfused one unit of packed cells. OBJECTIVE: ASSESSMENT AND PLAN:
[2017-11-24 11:40] LABS: ANISOCYTOSIS 1+; MACROCYTOSIS 0; OVALOCYTE 1+; PLATELET ESTIMATE DECREASED
--- NOTE | 2017-11-24 11:51 | PN ---
Progress Note, Physician History of Present Illness: Comfortable. Pain-free. Reports having formed, brown stools. No melena, hematochezia. Tolerating current diet. - Current Medication List Current Medications: Active Medications Albuterol Sulfate (Ventolin Hfa Inhaler -) 2 puff IH Q6H PRN PRN Reason: SHORT OF BREATH/WHEEZING Cholestyramine Resin (Questran Packet -) 4 gm PO BID [facility] Last Admin: 11/24/17 10:21 Dose: 4 gm Dicyclomine HCl (Bentyl -) 10 mg PO BID [facility] Last Admin: 11/24/17 10:20 Dose: 10 mg Escitalopram Oxalate (Lexapro -) 20 mg PO BID [facility] Last Admin: 11/24/17 10:20 Dose: 20 mg Fentanyl (Duragesic 100mcg Patch -) 2 patch TD Q72H [facility] Last Admin: 11/23/17 16:44 Dose: 2 patch Sodium Chloride (1/2 Normal Saline) 1,000 mls @ 75 mls/hr IV ASDIR [facility] Stop: 11/25/17 23:59 Lactobacillus Acidophilus (Bacid -) 1 tab PO DAILY [facility] Last Admin: 11/24/17 10:29 Dose: 1 tab Metoprolol Tartrate (Lopressor -) 50 mg PO BID [facility] Last Admin: 11/24/17 10:29 Dose: Not Given Miscellaneous (Duragesic Patch Waste) 1 each TD PRN PRN PRN Reason: WASTE Last Admin: 11/23/17 16:54 Dose: 1 each Montelukast Sodium (Singulair -) 10 mg PO HS [facility] Last Admin: 11/23/17 22:35 Dose: 10 mg Nicotine (Nicoderm Patch -) 14 mg TD DAILY [facility] Last Admin: 11/24/17 10:20 Dose: 14 mg Pantoprazole Sodium (Protonix -) 40 mg PO DAILY [facility] Last Admin: 11/24/17 10:20 Dose: 40 mg Ranitidine HCl (Zantac -) 150 mg PO BID [facility] Last Admin: 11/24/17 10:20 Dose: 150 mg Simethicone (Mylicon -) 80 mg PO Q12H PRN PRN Reason: DYSPEPSIA Last Admin: 11/23/17 22:40 Dose: 80 mg Spironolactone (Aldactone -) 100 mg PO DAILY [facility] Last Admin: 11/24/17 10:20 Dose: Not Given Sucralfate (Carafate -) 1 gm PO BID [facility] Last Admin: 11/24/17 10:20 Dose: 1 gm Triamcinolone Acetonide (Aristocort 0.5% Ointment -) 1 applic TP BID [facility] Last Admin: 11/23/17 22:34 Dose: 1 applic Vancomycin HCl (Vancomycin Oral Solution) 125 mg PO Q6HPO [facility] Last Admin: 11/24/17 06:51 Dose: 125 mg - Objective Vital Signs: Vital Signs Temperature 98.1 F 11/24/17 10:20 Pulse Rate 63 11/24/17 10:20 Respiratory Rate 18 11/24/17 10:20 Blood Pressure 95/46 11/24/17 10:20 O2 Sat by Pulse Oximetry (%) 98 11/23/17 21:00 Constitutional: Yes: Well Nourished, No Distress, Calm Eyes: Yes: Conjunctiva Clear HENT: Yes: Atraumatic Neck: Yes: Supple Cardiovascular: Yes: Regular Rate and Rhythm Respiratory: Yes: Regular Gastrointestinal: Yes: Soft. No: Normal Bowel Sounds, Ascites, Distention, Rectal Bleeding, Tenderness, Tenderness, Rebound, Vomiting Neurological: Yes: Alert, Oriented Labs: CBC, BMP 11/24/17 06:15 11/24/17 06:15 INR, PTT INR 1.07 (0.83-1.09) 11/20/17 11:30 Laboratory Last Values WBC 2.9 K/mm3 (4.0-10.0) L 11/24/17 06:15 RBC 3.16 M/mm3 (3.60-5.2) L 11/24/17 06:15 Hgb 8.7 GM/dL (10.7-15.3) L 11/24/17 06:15 Hct 25.1 % (32.4-45.2) L 11/24/17 06:15 MCV 79.3 fl (80-96) L 11/24/17 06:15 MCH 27.4 pg (25.7-33.7) 11/24/17 06:15 MCHC 34.5 g/dl (32.0-36.0) 11/24/17 06:15 RDW 20.1 % (11.6-15.6) H 11/24/17 06:15 Plt Count 95 K/MM3 (134-434) L 11/24/17 06:15 MPV 9.4 fl (7.5-11.1) 11/24/17 06:15 Absolute Neuts (auto) 1.4 # 11/24/17 06:15 Total Counted 100 11/23/17 06:30 Neutrophils % 49.0 % (42.8-82.8) D 11/24/17 06:15 Neutrophils % (Manual) 70.0 % (42.8-82.8) D 11/23/17 06:30 Band Neutrophils % 1.0 % 11/23/17 06:30 Lymphocytes % 40.1 % (8-40) H D 11/24/17 06:15 Lymphocytes % (Manual) 21.0 % (8-40) D 11/23/17 06:30 Monocytes % 9.1 % (3.8-10.2) 11/24/17 06:15 Monocytes % (Manual) 6 % (3.8-10.2) D 11/23/17 06:30 Eosinophils % 1.2 % (0-4.5) 11/24/17 06:15 Eosinophils % (Manual) 2.0 % (0-4.5) D 11/23/17 06:30 Basophils % 0.6 % (0-2.0) 11/24/17 06:15 Basophils % (Manual) 0.0 % (0-2.0) 11/21/17 06:15 Myelocytes % (Man) 0 % (0-2) 11/21/17 06:15 Promyelocytes % (Man) 0 % (0-2) 11/21/17 06:15 Blast Cells % (Manual) 0 % (0-0) 11/21/17 06:15 Nucleated RBC % 0 % (0-0) 11/24/17 06:15 Metamyelocytes 13 % (0-2) H D 11/21/17 06:15 Hypochromia 0 11/21/17 06:15 Toxic Granulation 0 11/21/17 06:15 Dohle Bodies 0 11/21/17 06:15 Platelet Estimate Slt decrease 11/23/17 06:30 Polychromasia 0 11/21/17 06:15 Poikilocytosis 0 11/21/17 06:15 Basophilic Stippling 0 11/21/17 06:15 Anisocytosis 0 11/21/17 06:15 Microcytosis 0 11/21/17 06:15 Macrocytosis 0 11/21/17 06:15 Spherocytes 0 11/21/17 06:15 Sickle Cells 0 11/21/17 06:15 Target Cells 0 11/21/17 06:15 Tear Drop Cells 0 11/21/17 06:15 Ovalocytes 0 11/21/17 06:15 Stomatocytes 0 11/21/17 06:15 Helmet Cells 0 11/21/17 06:15 Arellano-Cantrall Bodies 0 11/21/17 06:15 [place] Rings 0 11/21/17 06:15 [place] Cells 0 11/21/17 06:15 Acanthocytes (Spur) 0 11/21/17 06:15 Rouleaux 0 11/21/17 06:15 Fragmented RBCs 0 11/21/17 06:15 Schistocytes 0 11/21/17 06:15 PT with INR 12.10 SEC (9.7-13.0) 11/20/17 11:30 INR 1.07 (0.83-1.09) 11/20/17 11:30 PTT (Actin FS) 39.4 SECONDS (25.2-36.5) H 11/20/17 11:30 VBG pH 7.44 (7.32-7.42) H 11/20/17 11:30 POC VBG pCO2 41.9 mmHg (38-52) 11/20/17 11:30 POC VBG pO2 34.7 mmHg (28-48) 11/20/17 11:30 Mixed VBG HCO3 28.2 meq/L (19-25) H 11/20/17 11:30 Sodium 150 mmol/L (136-145) H 11/24/17 06:15 Potassium 3.6 mmol/L (3.5-5.1) 11/24/17 06:15 Chloride 115 mmol/L (98-107) H 11/24/17 06:15 Carbon Dioxide 28 mmol/L (21-32) 11/24/17 06:15 Anion Gap 7 (8-16) L 11/24/17 06:15 BUN 4 mg/dL (7-18) L 11/24/17 06:15 Creatinine 0.5 mg/dL (0.55-1.02) L 11/24/17 06:15 Creat Clearance w eGFR > 60 (>60) 11/24/17 06:15 Random Glucose 75 mg/dL (74-106) 11/24/17 06:15 Lactic Acid 1.2 mmol/L (0.0-2.0) 11/20/17 11:31 Calcium 8.2 mg/dL (8.5-10.1) L 11/24/17 06:15 Total Bilirubin 0.5 mg/dL (0.2-1.0) 11/24/17 06:15 AST 10 U/L (15-37) L 11/24/17 06:15 ALT 17 U/L (12-78) 11/24/17 06:15 Alkaline Phosphatase 83 U/L (45-117) D 11/24/17 06:15 Troponin I < 0.02 ng/ml (0.00-0.05) 11/20/17 11:30 Total Protein 4.6 g/dl (6.4-8.2) L 11/24/17 06:15 Albumin 2.7 g/dl (3.4-5.0) L 11/24/17 06:15 Total Amylase 12 U/L (25-115) L 11/20/17 11:30 Lipase 48 U/L (73-393) L 11/20/17 11:30 Serum , Qual Negative 11/20/17 11:20 Urine Color Yellow 11/20/17 15:12 Urine Appearance Clear 11/20/17 15:12 Urine pH 5.0 (5.0-8.0) 11/20/17 15:12 Ur Specific [place] 1.015 (1.001-1.035) 11/20/17 15:12 Urine Protein Negative (NEGATIVE) 11/20/17 15:12 Urine Glucose (UA) Negative (NEGATIVE) 11/20/17 15:12 Urine Ketones Negative (NEGATIVE) 11/20/17 15:12 Urine Blood Negative (NEGATIVE) 11/20/17 15:12 Urine Nitrite Negative (NEGATIVE) 11/20/17 15:12 Urine Bilirubin Negative (<2.0 mg/dL) 11/20/17 15:12 Urine Urobilinogen 2.0 mg/dL (0.2-1.0) H 11/20/17 15:12 Ur Leukocyte Esterase Negative (NEGATIVE) 11/20/17 15:12 Problem List - Problems (1) Diarrhea Code(s): R19.7 - DIARRHEA, UNSPECIFIED Assessment/Plan No stigmata of GI bleeding. Good response to oral Vancomycin. Continue current management. Discussed with the PT. OK to d/c home from GI perpective. Continue Vancomycin x 14 days.
[2017-11-24] MEDS: TRIAMCINOLONE ACET 0.5% OINT 15 GM TUBE TP SCH ×2 (11:55→21:59)
[2017-11-24] MEDS: SODIUM CHLORIDE 0.45% 1,000 ML IV SCH (11:56)
[2017-11-24] MEDS ORDERED: ACETAMINOPHEN 325 MG TABLET (FP) PO PRN (16:48)
[2017-11-24] MEDS: SIMETHICONE 80 MG TAB.CHEW (FP) PO PRN (22:01)
[2017-11-24] MEDS: MONTELUKAST NA 10 MG TABLET PO SCH (22:01)
[2017-11-25] MEDS: VANCOMYCIN 250 MG/5 ML ORAL SOLUTION PO SCH ×3 (01:57→12:05)
[2017-11-25] MEDS: SODIUM CHLORIDE 0.45% 1,000 ML IV SCH (01:58)
[2017-11-25 07:58] LABS: BASO % 0.5 % (0-2.0); EOS % 0.2 % (0-4.5); HEMATOCRIT 28.4 % (32.4-45.2); HEMOGLOBIN 9.9 GM/dL (10.7-15.3); MCH 27.7 pg (25.7-33.7); MCHC 34.8 g/dl (32.0-36.0); MEAN CELL VOLUME 79.5 fl (80-96); MEAN PLT VOLUME 9.2 fl (7.5-11.1); MONO % 6.7 % (3.8-10.2); NEUT % 80.6 % (42.8-82.8); PLATELET COUNT 101 K/MM3 (134-434); RBC 3.58 M/mm3 (3.60-5.2); RDW 20.9 % (11.6-15.6); WHITE BLOOD COUNT 7.7 K/mm3 (4.0-10.0)
[2017-11-25 08:08] LABS: CHLORIDE 110 mmol/L (98-107); POTASSIUM 3.1 mmol/L (3.5-5.1); SODIUM 146 mmol/L (136-145)
[2017-11-25] MEDS ORDERED: POTASSIUM CHLORIDE TABS 20 MEQ TABLET.ER (FP) PO ONE (08:23)
[2017-11-25 08:25] LABS: ALBUMIN 3.1 g/dl (3.4-5.0); ALK PHOS 97 U/L (45-117); ANION GAP 9 (8-16); BILIRUBIN,TOTAL 0.6 mg/dL (0.2-1.0); BLOOD UREA NITROGEN 3 mg/dL (7-18); CALCIUM 8.2 mg/dL (8.5-10.1); CO2 27 mmol/L (21-32); CREATININE 0.5 mg/dL (0.55-1.02); GLUCOSE,RANDOM 88 mg/dL (74-106); SGOT/AST 19 U/L (15-37); SGPT/ALT 19 U/L (12-78); TOT PROT 5.4 g/dl (6.4-8.2)
--- NOTE | 2017-11-25 08:25 | DS ---
Physical Examination Vital Signs: Vital Signs Temperature 98.3 F 11/25/17 05:21 Pulse Rate 115 H 11/25/17 05:21 Respiratory Rate 20 11/25/17 05:21 Blood Pressure 147/78 11/25/17 05:21 O2 Sat by Pulse Oximetry (%) 97 11/24/17 09:00 Findings/Remarks: feels well; counts good today; wants to go home I checked with [facility] they do have po vanco liquid for 2 weeks but pt has a copay of $155 she is aware and she said she can afford it; she could not tolerate po flagyl. d/w pt f/u needed, consults and meds; scripts done t time 40 min Constitutional: Yes: No Distress, Calm Eyes: Yes: Conjunctiva Clear HENT: Yes: Atraumatic Neck: Yes: Supple Cardiovascular: Yes: Regular Rate and Rhythm Respiratory: Yes: CTA Bilaterally Gastrointestinal: Yes: Soft. No: Tenderness Renal/: No: CVA Tenderness - Left, CVA Tenderness - Right Musculoskeletal: No: Joint Stiffness, Joint Swelling Extremities: No: Cold, Cool, Cyanosis Edema: No Integumentary: Yes: Rash (legs psoriasis). No: Pressure Ulcer, Venous Stasis Changes Neurological: Yes: WNL, Alert, Oriented ...Motor Strength: WNL Psychiatric: Yes: WNL, Alert, Oriented. No: Agitated, Suicidal Ideation Labs: CBC, BMP 11/25/17 06:00 11/25/17 06:00 Discharge Summary Reason For Visit: ABDOMINAL PAIN Current Active Problems Abdominal pain (Acute) C. difficile colitis (Acute) Diarrhea (Acute) Procedures: Principal: admitted with recurrent CDiff colitis, abdominal pain, intractable diarrhea and weight loss Other Procedures: seen by GI and ID; antibiotics per ID & GI;. also pancytopenia, s/p recent chemotx for breast cancer; seen by heme onc; Hospital Course: improved with above; f/u as advised; meds po as prescribed; Condition: Stable - Instructions Diet, Activity, Other Instructions: f/u PCP and GI in 2-4 weeks f/u with heme onc dr Sloan next week, check labs CBC CMP within 1 week take meds as ordered; vancomycin po qid x 2 weeks RTER if worse or recurrent c/o or fever/chills Referrals: Josephine Groves [Primary Care Provider] - Suleman Saucedo MD [Staff Physician] - Charles Sloan MD [Staff Physician] - Disposition: VNS/HOME HEALTH CARE - Home Medications Comprehensive Discharge Medication List: Ambulatory Orders Albuterol Sulfate [Proair Hfa] 2 puff IH PRN PRN 08/04/17 Escitalopram Oxalate [Lexapro -] 20 mg PO Q12H 08/04/17 Esomeprazole Magnesium 40 mg PO DAILY 08/04/17 Lactobacillus Acidophilus [Acidophilus] 1 tab PO DAILY 08/04/17 Metoprolol Tartrate 50 mg PO Q12H 08/04/17 Montelukast Sodium [Singulair] 10 mg PO HS 08/04/17 Ranitidine [Zantac -] 150 mg PO BID 08/04/17 metFORMIN HCL [Metformin HCl] 500 mg PO Q12H 08/04/17 FENTANYL 100mcg PATCH [DURAGESIC 100mcg PATCH -] 2 patch TD Q72H 08/31/17 Simethicone 80 mg PO Q12H PRN 08/31/17 Nicotine Patch [Nicoderm Patch -] 14 mg TD DAILY patch 09/06/17 Dicyclomine HCl [Bentyl -] 10 mg PO Q12H 10/18/17 Ondansetron HCl [Zofran] 8 mg PO Q8H PRN 10/18/17 Sucralfate [Carafate -] 1 gm PO Q12H 10/18/17 Cholestyramine/Sucrose [Questran Packet -] 4 gm PO BID #30 packet 11/23/17 Fentanyl Patch Waste [Duragesic Patch Waste] 1 each TD PRN PRN each 11/23/17 Spironolactone [Aldactone -] 100 mg PO DAILY tablet 11/23/17 Triamcinolone 0.5% Ointment [Aristocort 0.5% Ointment -] 1 applic TP BID tube 11/23/17 Vancomycin Oral Solution 125 mg PO Q6HPO #140 ml 11/23/17
[2017-11-25] MEDS ORDERED: PT OWN MED DRAWER 7, Y5N ONE (09:16)
[2017-11-25] MEDS: SPIRONOLACTONE 25 MG TABLET (FP) PO SCH (09:29)
[2017-11-25] MEDS: RANITIDINE HCL 150 MG TABLET (FP) PO SCH (09:32)
[2017-11-25] MEDS: ESCITALOPRAM OXALATE 20 MG TABLET (FP) PO SCH (09:32)
[2017-11-25] MEDS: SUCRALFATE 1 GM TABLET (FP) PO SCH (09:32)
[2017-11-25] MEDS: METOPROLOL TARTRATE 50 MG TABLET (FP) PO SCH (09:32)
[2017-11-25] MEDS: NICOTINE 14 MG/24 HOURS TOPICAL PATCH TD SCH (09:32)
[2017-11-25] MEDS: PANTOPRAZOLE 40 MG TABLET (FP) PO SCH (09:32)
[2017-11-25] MEDS: LACTOBACILLUS ACIDOPHILUS 1 TABLET PO SCH (09:33)
[2017-11-25] MEDS: CHOLESTYRAMINE/SUCROSE 4 GM PACKET PO SCH (09:33)
[2017-11-25] MEDS: DICYCLOMINE HCL 10 MG CAPSULE PO SCH (09:33)
[2017-11-25] MEDS: TRIAMCINOLONE ACET 0.5% OINT 15 GM TUBE TP SCH (09:36)
[2017-11-25 10:21] LABS: ANISOCYTOSIS 1+; MACROCYTOSIS 1+; OVALOCYTE 1+; PLATELET ESTIMATE DECREASED
[2017-11-25 12:22] VITALS: BP 150/80; PULSE 90; TEMP 98.4
== END 2017-11-25 12:56 | disposition home health service (06) | DRG 372 ==
LOC: JER 10:28 → JERBED 14:53 → J5S 21:01
PROVIDERS: ADMIT Internal Medicine; ATTEND Internal Medicine
DX: A04.72 Enterocolitis due to Clostridium difficile, not specified as recurrent (principal); K76.6 Portal hypertension; D61.818 Other pancytopenia; F11.20 Opioid dependence, uncomplicated; C50.912 Malignant neoplasm of unspecified site of left female breast; J44.9 Chronic obstructive pulmonary disease, unspecified; I10 Essential (primary) hypertension; G43.909 Migraine, unspecified, not intractable, without status migrainosus; K29.70 Gastritis, unspecified, without bleeding; K74.60 Unspecified cirrhosis of liver; F41.8 Other specified anxiety disorders; L40.50 Arthropathic psoriasis, unspecified; M54.5 Low back pain; F17.210 Nicotine dependence, cigarettes, uncomplicated; E11.51 Type 2 diabetes mellitus with diabetic peripheral angiopathy without gangrene; K76.0 Fatty (change of) liver, not elsewhere classified; E78.00 Pure hypercholesterolemia, unspecified; K31.89 Other diseases of stomach and duodenum; R63.4 Abnormal weight loss; Z68.22 Body mass index [BMI] 22.0-22.9, adult; Z87.440 Personal history of urinary (tract) infections; D72.819 Decreased white blood cell count, unspecified; Z51.11 Encounter for antineoplastic chemotherapy
CPT/HCPCS: 36415; 71045-TC-FY; 74177-TC; 80053; 81003; 82150; 82803; 83605; 83690; 83993; 84484; 84703; 85025; 85610; 85730; 87040; 87045; 87046; 87086; 87324; 87328; 87329; 87449; 93005; 93010; 99283-25; J1447; J7030

== ENCOUNTER 2017-11-30 07:42 | Day surgery (SDC) | payer OTHER ==
[2017-11-30] MEDS ORDERED: DEXAMETHASONE IVPB ONE (10:00)
[2017-11-30] MEDS ORDERED: DIPHENHYDRAMINE IVPB ONE (10:00)
[2017-11-30] MEDS ORDERED: [UNRECOGNIZED DRUG - OTHER] IVPB ONE (10:00)
[2017-11-30] MEDS ORDERED: RANITIDINE IVPB ONE (10:00)
[2017-11-30] MEDS ORDERED: PACLITAXEL 120 MG in SODIUM CHLORIDE 250 ML IVPB ONE (10:30)
[2017-11-30] MEDS ORDERED: SODIUM CHLORIDE 250 ML IV ONE (11:30)
[2017-11-30] MEDS ORDERED: POTASSIUM CHLORIDE TABS 20 MEQ TABLET.ER (FP) PO SCH (11:45)
[2017-11-30] MEDS ORDERED: POTASSIUM CHLORIDE TABS 20 MEQ TABLET.ER (FP) PO ONE (11:45)
[2017-11-30 17:22] VITALS: TEMP 97.9
[2017-11-30] MEDS ORDERED: PORTA CATH FLUSH 10 ML IVPUSH ONE (17:22)
[2017-11-30 17:29] VITALS: BP 122/74; PULSE 69
== END 2017-11-30 14:15 | disposition home or self-care (01) ==
LOC: JONCCHEMO 07:42 → J7W 11:10 → JONCCHEMO 14:15
PROVIDERS: ATTEND Internal Medicine Hematology & Oncology
DX: Z51.11 Encounter for antineoplastic chemotherapy (principal); C50.919 Malignant neoplasm of unspecified site of unspecified female breast
CPT/HCPCS: 96361; 96367; 96375; 96413; J1100

== ENCOUNTER 2017-12-14 07:35 | Day surgery (SDC) | payer OTHER ==
--- NOTE | 2017-11-20 15:45 | CON.GI ---
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 Anxiety disorder. Narcotic addiction - Past Surgical History Past Surgical History: Yes: Laminectomy (C spine discectomy and fusion [facility] 2005, repeat fusion 2006, cervical hardware removed at [facility] 2009), Tonsillectomy, Upper Endoscopy - Alcohol/Substance Use Hx Alcohol Use: No History of Substance Use: reports: Prescription - Smoking History Smoking history: Current every day smoker Have you smoked in the past 12 months: Yes Aproximately how many cigarettes per day: 6 - Social History Usual Living Arrangement: Alone ADL: Independent Occupation: disability History of Recent Travel: No Home Medications - Allergies Allergies/Adverse Reactions: Allergies Allergy/AdvReac Type Severity Reaction Status Date / Time nickel Allergy Intermediate Rash Verified 11/20/17 10:34 timolol Allergy Swelling Verified 11/20/17 10:34 titanium Allergy Verified 11/20/17 10:34 - Home Medications Home Medications: Ambulatory Orders Albuterol Sulfate [Proair Hfa] 2 puff IH PRN PRN 08/04/17 Escitalopram Oxalate [Lexapro -] 20 mg PO Q12H 08/04/17 Esomeprazole Magnesium 40 mg PO DAILY 08/04/17 Lactobacillus Acidophilus [Acidophilus] 1 tab PO DAILY 08/04/17 Metoprolol Tartrate 50 mg PO Q12H 08/04/17 Montelukast Sodium [Singulair] 10 mg PO HS 08/04/17 Ranitidine [Zantac -] 150 mg PO BID 08/04/17 metFORMIN HCL [Metformin HCl] 500 mg PO Q12H 08/04/17 FENTANYL 100mcg PATCH [DURAGESIC 100mcg PATCH -] 2 patch TD Q72H 08/31/17 Simethicone 80 mg PO Q12H PRN 08/31/17 Nicotine Patch [Nicoderm Patch -] 14 mg TD DAILY patch 09/06/17 Dicyclomine HCl [Bentyl -] 10 mg PO Q12H 10/18/17 Ondansetron HCl [Zofran] 8 mg PO Q8H PRN 10/18/17 Sucralfate [Carafate -] 1 gm PO Q12H 10/18/17 Family Disease History - Family Disease History Family Disease History: CA: Father (lung), Mother (lung) Review of Systems Findings/Remarks: as per HPIP, H&P, ED Imaging - Results Cat Scan: Pending Problem List - Problems (1) Liver cirrhosis Code(s): K74.60 - UNSPECIFIED CIRRHOSIS OF LIVER (2) Breast cancer Code(s): C50.919 - MALIGNANT NEOPLASM OF UNSP SITE OF UNSPECIFIED FEMALE BREAST (3) Diarrhea Code(s): R19.7 - DIARRHEA, UNSPECIFIED Qualifiers: (4) Portal hypertension Code(s): K76.6 - PORTAL HYPERTENSION (5) Psoriatic arthritis Code(s): L40.50 - ARTHROPATHIC PSORIASIS, UNSPECIFIED
[2017-12-14 09:58] LABS: EOS % 1.5 % (0-4.5); HEMATOCRIT 31.3 % (32.4-45.2); HEMOGLOBIN 10.6 GM/dL (10.7-15.3); LYMPH % 23.3 % (8-40); MCH 27.3 pg (25.7-33.7); MCHC 33.7 g/dl (32.0-36.0); MEAN CELL VOLUME 81.1 fl (80-96); MEAN PLT VOLUME 8.9 fl (7.5-11.1); MONO % 11.2 % (3.8-10.2); PLATELET COUNT 96 K/MM3 (134-434); RBC 3.86 M/mm3 (3.60-5.2); WHITE BLOOD COUNT 3.7 K/mm3 (4.0-10.0)
[2017-12-14] MEDS ORDERED: DEXAMETHASONE IVPB ONE (10:00)
[2017-12-14] MEDS ORDERED: DIPHENHYDRAMINE IVPB ONE (10:00)
[2017-12-14] MEDS ORDERED: RANITIDINE IVPB ONE (10:00)
[2017-12-14] MEDS ORDERED: [UNRECOGNIZED DRUG - OTHER] IVPB ONE (10:00)
[2017-12-14 10:20] LABS: ALBUMIN 3.4 g/dl (3.4-5.0); BILIRUBIN,DIRECT 0.3 mg/dL (0.0-0.2); BILIRUBIN,TOTAL 0.8 mg/dL (0.2-1.0); TOT PROT 6.3 g/dl (6.4-8.2)
[2017-12-14 10:21] LABS: ALBUMIN 3.4 g/dl (3.4-5.0); ANION GAP 4 MMOL/L (8-16); BLOOD UREA NITROGEN 10 mg/dL (7-18); CALCIUM 8.5 mg/dL (8.5-10.1); CHLORIDE 105 mmol/L (98-107); CO2 30 mmol/L (21-32); GLUCOSE,RANDOM 112 mg/dL (74-106); POTASSIUM 4.2 mmol/L (3.5-5.1); SODIUM 139 mmol/L (136-145)
[2017-12-14 10:25] LABS: ALK PHOS 179 U/L (45-117); BILIRUBIN,TOTAL 0.8 mg/dL (0.2-1.0); CREATININE 0.6 mg/dL (0.55-1.02); SGOT/AST 40 U/L (15-37); SGPT/ALT 39 U/L (12-78); TOT PROT 6.4 g/dl (6.4-8.2)
[2017-12-14] MEDS ORDERED: PACLITAXEL 102 MG in SODIUM CHLORIDE 250 ML IVPB ONE (10:30)
[2017-12-14] MEDS ORDERED: SODIUM CHLORIDE 250 ML IV STA (10:58)
[2017-12-14] MEDS ORDERED: PORTA CATH FLUSH 10 ML IVPUSH ONE (16:14)
[2017-12-14 16:20] VITALS: BP 133/88; PULSE 68
[2017-12-14 16:31] VITALS: TEMP 97.8
== END 2017-12-14 14:20 | disposition home or self-care (01) ==
LOC: JONCCHEMO 07:35 → J7W 11:28 → JONCCHEMO 14:20
PROVIDERS: ATTEND Internal Medicine Hematology & Oncology
PROC: 3E04305 Introduction of Other Antineoplastic into Central Vein, Percutaneous Approach (ICD-10-PCS; principal; 2017-12-14)
PROC: 3E043GC Introduction of Other Therapeutic Substance into Central Vein, Percutaneous Approach (ICD-10-PCS; 2017-12-14)
PROC: 3E0437Z Introduction of Electrolytic and Water Balance Substance into Central Vein, Percutaneous Approach (ICD-10-PCS; 2017-12-14)
DX: Z51.11 Encounter for antineoplastic chemotherapy (principal); C50.112 Malignant neoplasm of central portion of left female breast; Z17.0 Estrogen receptor positive status [ER+]; C50.212 Malignant neoplasm of upper-inner quadrant of left female breast; Z17.1 Estrogen receptor negative status [ER-]; I10 Essential (primary) hypertension; E11.9 Type 2 diabetes mellitus without complications; K76.0 Fatty (change of) liver, not elsewhere classified; G47.30 Sleep apnea, unspecified; I73.9 Peripheral vascular disease, unspecified
CPT/HCPCS: 36415; 80053; 80076; 83735; 85025; 96361; 96367; 96375; 96413; J1100

== ENCOUNTER 2017-12-19 08:09 | Inpatient (IN) | payer OTHER ==
--- NOTE | 2017-12-19 09:14 | PDOC ---
History of Present Illness - General Chief Complaint: Diarrhea Stated Complaint: Diarrhea Time Seen by Provider: 12/19/17 09:14 History Source: Patient Exam Limitations: No Limitations - History of Present Illness Initial Comments: 12/19/17 10:30 Ms. Jacobo is a 47 yo F with a hx of psoriatic arthritis, HTN, COPD, breast CA on active chemotherapy (paclitaxel with last dose the previous , followed by Dr. Link) presents to the emergency department with diarrhea. She states this began this past Monday and has had 5-6x episodes per day with her most recent episode in the department. She endorses having associative acute on chronic diffuse abdominal pain since the commencement of these episodes. She was recently admitted for C diff and prescribed vancomycin on 11/26 finishing her course on 12/10. Endorses having increased nausea. Denies the following: fevers, chills, headaches, chest pain, SOB, dysuria, hematuria, heamtochezia, melena, and leg pain/swelling. Shx: 2005, 2006, 2009 neck surgeries. Left breast lumpectomy. Allergies: Nickel, timolol Social: 1/3 pack of cigarettes per day. Denies alcohol and substance abuse. Past History - Past Medical History Allergies/Adverse Reactions: Allergies Allergy/AdvReac Type Severity Reaction Status Date / Time nickel Allergy Intermediate Rash Verified 12/19/17 08:16 timolol Allergy Swelling Verified 12/19/17 08:16 titanium Allergy Verified 12/19/17 08:16 Home Medications: Ambulatory Orders Albuterol Sulfate [Proair Hfa] 2 puff IH PRN PRN 08/04/17 Escitalopram Oxalate [Lexapro -] 20 mg PO Q12H 08/04/17 Esomeprazole Magnesium 40 mg PO DAILY 08/04/17 Lactobacillus Acidophilus [Acidophilus] 1 tab PO DAILY 08/04/17 Metoprolol Tartrate 50 mg PO Q12H 08/04/17 Montelukast Sodium [Singulair] 10 mg PO HS 08/04/17 Ranitidine [Zantac -] 150 mg PO BID 08/04/17 metFORMIN HCL [Metformin HCl] 500 mg PO Q12H 08/04/17 FENTANYL 100mcg PATCH [DURAGESIC 100mcg PATCH -] 2 patch TD Q72H 08/31/17 Simethicone 80 mg PO Q12H PRN 08/31/17 Dicyclomine HCl [Bentyl -] 10 mg PO Q12H PRN 10/18/17 Ondansetron HCl [Zofran] 8 mg PO Q8H PRN 10/18/17 Sucralfate [Carafate -] 1 gm PO Q12H 10/18/17 Cholestyramine/Sucrose [Questran Packet -] 4 gm PO BID #30 packet 11/23/17 Fentanyl Patch Waste [Duragesic Patch Waste] 1 each TD PRN PRN each 11/23/17 Spironolactone [Aldactone -] 100 mg PO DAILY tablet 11/23/17 Triamcinolone 0.5% Ointment [Aristocort 0.5% Ointment -] 1 applic TP BID tube 11/23/17 Vancomycin Oral Solution 125 mg PO Q6HPO #140 ml 11/23/17 Asthma: Yes Cancer: Yes (Breast cancer left) Cardiac Disorders: Yes (Peripheral Artery Disease) COPD: No DVT: No Diabetes: Yes HTN: Yes Hypercholesterolemia: Yes Liver Disease: Yes (fatty liver, cirrhosis) Psychiatric Problems: Yes (depression, anxiety) - Surgical History Orthopedic Surgery: Yes (3 neck sx's (2005, 2006, 2009)) - Immunization History Immunization Up to Date: No - Suicide/Smoking/Psychosocial Hx Smoking History: Unknown if ever smoked Have you smoked in the past 12 months: No Number of Cigarettes Smoked Daily: 6 Information on smoking cessation initiated: No 'Breaking Loose' booklet given: 09/09/17 Hx Alcohol Use: No Drug/Substance Use Hx: No Substance Use Type: None Hx Substance Use Treatment: No Review of Systems - Review of Systems Able to Perform ROS?: Yes Constitutional: No: Chills, Diaphoresis, Fever HEENTM: No: Recent change in vision, Ear Pain, Nose Pain, Throat Pain, Mouth Pain Respiratory: No: Cough, Shortness of Breath Cardiac (ROS): No: Chest Pain, Palpitations, Syncope, Chest Tightness ABD/GI: Yes: Abd. Pain w/ defecation, Diarrhea, Nausea, Poor Fluid Intake, Abdominal cramping. No: Constipated, Rectal Bleeding, Vomiting, Tarry Stools : No: Burning, Dysuria, Hematuria Musculoskeletal: No: Back Pain Integumentary: No: Rash Neurological: No: Headache, Numbness, Tingling, Tremors, Weakness Psychiatric: No: Stressors Endocrine: No: Unexplained Weight Gain Hematologic/Lymphatic: No: Anemia *Physical Exam - Vital Signs Last Vital Signs Temp Pulse Resp BP Pulse Ox 98.7 F 109 H 16 140/63 100 12/19/17 08:13 12/19/17 08:13 12/19/17 08:13 12/19/17 08:13 12/19/17 08:13 - Physical Exam General Appearance: Yes: Nourished, Appropriately Dressed HEENT: positive: EOMI, DEVIN Neck: positive: Trachea midline. negative: Lymphadenopathy (R), Lymphadenopathy (L) Respiratory/Chest: positive: Lungs Clear, Normal Breath Sounds, Other (port located on right chest upper wall) Cardiovascular: positive: Regular Rhythm, Regular Rate, S1, S2. negative: Systolic Murmur Gastrointestinal/Abdominal: positive: Normal Bowel Sounds, Tender (diffusely tender with greater tenderness to palpation in th epigastric, hypogastric region. No rebound tenderness. ) Musculoskeletal: positive: Normal Inspection, CVA Tenderness. 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 No st elevation or depression noted. ED Treatment Course - LABORATORY CBC & Chemistry Diagram: 12/19/17 10:55 12/19/17 10:55 Medical Decision Making - Medical Decision Making 47 yo F with hx of breast cancer on chemo with recent c diff diagnosis with finished course of vancomycin on 12/10/2017 presenting to the ED with diarrhea with concurrent acute on chronic abdominal pain. ddx: C diff, gastroenteritis, colitis, bowel obstruction, side effects of chemo (reported 30%+ of diarrhea of the specific agent), UTI, cystitis, gastritis, Initial vitals: Initial Vital Signs Temp Pulse Resp BP Pulse Ox 98.7 F 109 H 16 140/63 100 12/19/17 08:13 12/19/17 08:13 12/19/17 08:13 12/19/17 08:13 12/19/17 08:13 Work up: Laboratory Tests 12/19/17 12/19/17 10:55 10:55 WBC 6.7 RBC 3.73 Hgb 9.8 L Hct 30.4 L MCV 81.5 MCH 26.3 MCHC 32.2 RDW 18.7 H Plt Count 92 L MPV 9.1 Absolute Neuts (auto) 6.0 Neutrophils % 89.0 H D Lymphocytes % 8.1 D Monocytes % 2.1 L D Eosinophils % 0.4 Basophils % 0.4 Nucleated RBC % 0 Sodium 142 Potassium 3.9 Chloride 105 Carbon Dioxide 29 Anion Gap 8 BUN 13 Creatinine 0.5 L Creat Clearance w eGFR > 60 Random Glucose 127 H Calcium 8.6 Total Bilirubin 1.6 H AST 18 ALT 32 Alkaline Phosphatase 154 H D Total Protein 6.1 [address]in [address] abdomen and pelvis: "no definite interval change is identified to a previous CT exam of 11/20/2017. Thee is continious concentric wall edema involving the length of the colon including the rectum - ? infectious/inflammatory colitis vs portal colopathy. Cholelithiasis without evidence of acute cholecystitis. Hepatic cirrhosis with splenomegaly, varices, small amount of ascites. Patient was started on 1 liter of NS and zofran. Patient was reassessed and continues to have small diarrheal loose stools. Will admit for possible c diff infection and IV rehydrate in setting of diarrhea. Dispo: Admit *DC/Admit/Observation/Transfer Diagnosis at time of Disposition: Nausea Abdominal pain Qualifiers: Abdominal location: generalized Qualified Code(s): R10.84 - Generalized abdominal pain Diarrhea Qualifiers: Diarrhea type: unspecified type Qualified Code(s): R19.7 - Diarrhea, unspecified - Discharge Dispostion Decision to Admit order: Yes - Referrals - Patient Instructions - Post Discharge Activity
--- NOTE | 2017-12-19 09:15 | PDOC ---
Attending Attestation - Resident Resident Name: Kevyn Shi - HPI HPI: 12/19/17 10:25 Pt presents to the ED complaining of profuse watery diarrhea that started 4 days ago. Denies fevers or vomiting, but does complain of severe nausea and very poor appetite PAtient has a history of breast CA for which she is receiving chemotherapy. Last dose was on . Patient has had prior bouts of diarrhea that were attributed to C diff. Also complaining of diffuse abdominal pain that she states is similar to, but worse than her chronic abdominal pain. Reports that she does not usually have abdominal tenderness when she is examined by her physician. 12/19/17 10:30 - Physicial Exam PE: 12/19/17 10:31 pt is alert and in no acute distress. She is pale. CV+ systolic murmur, loudest at the apex. Pulm: CTA b/l. Abdomen: soft, diffusely tender, worse in the RUQ and the RLQ. - Medical Decision Making 12/19/17 10:33 Pt presents to the ED complaining of diffuse abdominal pain and profuse watery diarrhea. Differential includes C diff, viral gastroenteritis, side effects of chemotherapy. Will give IV hydration and check labs to evaluate for electrolyte disturbance. Will likely admit for IV hydration.
[2017-12-19] MEDS ORDERED: ONDANSETRON 4 MG/2 ML VIAL IVPUSH ONE (10:05)
[2017-12-19] MEDS ORDERED: SODIUM CHLORIDE 1,000 ML IV STA (10:05)
[2017-12-19 10:59] LABS: BASO % 0.4 % (0-2.0); EOS % 0.4 % (0-4.5); HEMATOCRIT 30.4 % (32.4-45.2); HEMOGLOBIN 9.8 GM/dL (10.7-15.3); LYMPH % 8.1 % (8-40); MCH 26.3 pg (25.7-33.7); MCHC 32.2 g/dl (32.0-36.0); MEAN CELL VOLUME 81.5 fl (80-96); MEAN PLT VOLUME 9.1 fl (7.5-11.1); MONO % 2.1 % (3.8-10.2); PLATELET COUNT 92 K/MM3 (134-434); RBC 3.73 M/mm3 (3.60-5.2); RDW 18.7 % (11.6-15.6); WHITE BLOOD COUNT 6.7 K/mm3 (4.0-10.0)
[2017-12-19] MEDS ORDERED: ONDANSETRON 4 MG/2 ML VIAL ONE (10:59)
[2017-12-19 11:18] LABS: ALBUMIN 3.3 g/dl (3.4-5.0); ALK PHOS 154 U/L (45-117); ANION GAP 8 MMOL/L (8-16); BILIRUBIN,TOTAL 1.6 mg/dL (0.2-1.0); BLOOD UREA NITROGEN 13 mg/dL (7-18); CALCIUM 8.6 mg/dL (8.5-10.1); CHLORIDE 105 mmol/L (98-107); CO2 29 mmol/L (21-32); CREATININE 0.5 mg/dL (0.55-1.02); GLUCOSE,RANDOM 127 mg/dL (74-106); POTASSIUM 3.9 mmol/L (3.5-5.1); SGOT/AST 18 U/L (15-37); SGPT/ALT 32 U/L (12-78); SODIUM 142 mmol/L (136-145); TOT PROT 6.1 g/dl (6.4-8.2)
--- NOTE | 2017-12-19 14:33 | EKG ---
Test Reason : Blood Pressure : / mmHG Vent. Rate : 093 BPM Atrial Rate : 093 BPM P-R Int : 130 ms QRS Dur : 082 ms QT Int : 370 ms P-R-T Axes : 079 047 044 degrees QTc Int : 460 ms POOR DATA QUALITY, INTERPRETATION MAY BE ADVERSELY AFFECTED NORMAL SINUS RHYTHM NORMAL ECG WHEN COMPARED WITH ECG OF 20-NOV-2017 11:58, NO SIGNIFICANT CHANGE WAS FOUND Confirmed by Alban Ross ([id number]) on 12/19/2017 2:32:30 PM Referred By: Confirmed By:Alban Ross
--- NOTE | 2017-12-19 15:26 | HP ---
Admitting History and Physical - Primary Care Physician PCP: Josephine Groves S - Admission Chief Complaint: diarrhea intractable History of Present Illness: Ms. Jacobo is a 47 yo F with a hx of psoriatic arthritis, HTN, COPD, breast CA on active chemotherapy (paclitaxel with last dose the previous , followed by Dr. Link) also h/o recurrent CDiff colitis in the past presents to the emergency department with diarrhea. She states this began this past Monday and has had 5-6x episodes per day with her most recent episode in the department. She endorses having associative acute on chronic diffuse abdominal pain since the commencement of these episodes. She was recently admitted for C diff and prescribed vancomycin on 11/26 finishing her course on 12/10. Endorses having increased nausea. Denies the following: fevers, chills, headaches, chest pain, SOB, dysuria, hematuria, hematochezia, melena, and leg pain/swelling. 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: Yes: Migraine, Other Cardiovascular: Yes: HTN Pulmonary: Yes: COPD Gastrointestinal: Yes: Gastritis Hepatobiliary: Yes: Cirrhosis Renal/: Yes: UTI ...LMP: 08/26/03 Heme/Onc: Yes: Cancer Psych: Yes: Anxiety, Depression Musculoskeletal: Yes: Chronic low back pain Rheumatology: Yes: Other (Psoriatic arthritis) Endocrine: Yes: Diabetes Mellitus - Past Surgical History Past Surgical History: Yes: Laminectomy (C spine discectomy and fusion [facility] 2005, repeat fusion 2006, cervical hardware removed at [facility] 2009), Tonsillectomy, Upper Endoscopy - Smoking History Smoking history: Former smoker Have you smoked in the past 12 months: No Aproximately how many cigarettes per day: 6 - Alcohol/Substance Use Hx Alcohol Use: No History of Substance Use: reports: Prescription - Social History Usual Living Arrangement: Yes: Other (with sister) ADL: Independent Occupation: disability History of Recent Travel: No Home Medications - Allergies Allergies/Adverse Reactions: Allergies Allergy/AdvReac Type Severity Reaction Status Date / Time nickel Allergy Intermediate Rash Verified 12/19/17 08:16 timolol Allergy Swelling Verified 12/19/17 08:16 titanium Allergy Verified 12/19/17 08:16 - Home Medications Home Medications: Ambulatory Orders Albuterol Sulfate [Proair Hfa] 2 puff IH PRN PRN 08/04/17 Escitalopram Oxalate [Lexapro -] 20 mg PO Q12H 08/04/17 Esomeprazole Magnesium 40 mg PO DAILY 08/04/17 Lactobacillus Acidophilus [Acidophilus] 1 tab PO DAILY 08/04/17 Metoprolol Tartrate 50 mg PO Q12H 08/04/17 Montelukast Sodium [Singulair] 10 mg PO HS 08/04/17 Ranitidine [Zantac -] 150 mg PO BID 08/04/17 FENTANYL 100mcg PATCH [DURAGESIC 100mcg PATCH -] 2 patch TD Q72H 08/31/17 Simethicone 80 mg PO Q12H PRN 08/31/17 Dicyclomine HCl [Bentyl -] 10 mg PO Q12H PRN 10/18/17 Ondansetron HCl [Zofran] 8 mg PO Q8H PRN 10/18/17 Sucralfate [Carafate -] 1 gm PO Q12H 10/18/17 Cholestyramine/Sucrose [Questran Packet -] 4 gm PO BID #30 packet 11/23/17 Spironolactone [Aldactone -] 100 mg PO DAILY tablet 11/23/17 Triamcinolone 0.5% Ointment [Aristocort 0.5% Ointment -] 1 applic TP BID tube 11/23/17 Nicotine Patch [Nicoderm Patch -] 14 mg TD DAILY patch 12/22/17 Nystatin Oral Suspension - [Nystatin Oral Susp 973125 Units/5 ML -] 500,000 units PO QID PRN cup 12/22/17 Vancomycin Oral Solution 125 mg PO Q6HPO 30 Days ml 12/22/17 Family Disease History - Family Disease History Family Disease History: CA: Father (lung), Mother (lung) Review of Systems - Review of Systems Constitutional: reports: Loss of Appetite, Unintentional Wgt. Loss. denies: Chills, Fever Eyes: denies: Blind Spots, Blurred Vision, Double Vision HENT: denies: Epistaxis Neck: denies: Tenderness Cardiovascular: denies: Chest Pain, Shortness of Breath Respiratory: denies: Hemoptysis, SOB Gastrointestinal: reports: Abdominal Pain, Diarrhea. denies: Constipation, Vomiting Genitourinary: denies: Dysuria, Flank Pain Musculoskeletal: reports: Back Pain (chronic) Integumentary: reports: Eczema, Rash (psoriasis) Neurological: denies: Confusion, Dizziness, Seizure, Syncope Endocrine: reports: Unexplained Weight Loss Hematology/Lymphatic: denies: Easily Bruised, Excessive Bleeding Psychiatric: reports: Anxiety, Depression. denies: Suicidal Physical Examination Vital Signs: Vital Signs Temperature 98.7 F 12/19/17 08:13 Pulse Rate 109 H 12/19/17 08:13 Respiratory Rate 16 12/19/17 08:13 Blood Pressure 140/63 12/19/17 08:13 O2 Sat by Pulse Oximetry (%) 100 12/19/17 09:45 Constitutional: Yes: No Distress, Calm, Other (R upper chest port) Eyes: Yes: Conjunctiva Clear HENT: Yes: Atraumatic Neck: Yes: Supple Cardiovascular: Yes: Regular Rate and Rhythm Respiratory: Yes: CTA Bilaterally Gastrointestinal: Yes: Soft, Tenderness (general) Renal/: No: CVA Tenderness - Left, CVA Tenderness - Right Musculoskeletal: No: Joint Stiffness, Joint Swelling Extremities: No: Cold, Cool Edema: No Integumentary: Yes: Rash (psoriatic rash arms and legs) Neurological: Yes: WNL, Alert, Oriented ...Motor Strength: WNL Psychiatric: Yes: WNL, Alert, Oriented. No: Agitated, Suicidal Ideation Labs: CBC, BMP 12/19/17 10:55 12/19/17 10:55 Imaging - Results Chest X-ray: Report Reviewed Cat Scan: Report Reviewed Other: Report Reviewed Assessment/Plan Ms. Jacobo is a 47 yo F with a hx of psoriatic arthritis, HTN, COPD, breast CA on active chemotherapy (paclitaxel with last dose the previous , followed by Dr. Link) also h/o recurrent CDiff colitis presents to the emergency department with intractable diarrhea. admit GI and ID eval IV flagyl test stools for CDiff heme onc eval - might need to old off chemotx d/wpt and staff
[2017-12-19 16:30] LABS: URINE APPEARANCE CLEAR; URINE BILIRUBIN NEGATIVE (<2.0 mg/dL); URINE COLOR AMBER; URINE GLUCOSE (UA) NEGATIVE (NEGATIVE); URINE KETONE NEGATIVE (NEGATIVE); URINE LEUK ESTERASE NEGATIVE (NEGATIVE); URINE NITRITE NEGATIVE (NEGATIVE); URINE UROBILINOGEN 4.0 E.U/dl mg/dL (0.2-1.0)
[2017-12-19 16:34] LABS: URINE PROTEIN 1+ (NEGATIVE)
[2017-12-19 16:38] LABS: EPI CELLS RARE /HPF (FEW); URINE MUCUS RARE
[2017-12-19] MEDS ORDERED: ALBUTEROL SO4 8 GM HFA INHALER IH PRN (20:58)
[2017-12-19] MEDS ORDERED: DICYCLOMINE HCL 10 MG CAPSULE PO PRN (20:58)
[2017-12-19] MEDS ORDERED: ONDANSETRON 4 MG TABLET PO PRN (20:58)
[2017-12-19] MEDS ORDERED: fentaNYL 100mcg/hr PATCH.TD72 TD SCH (21:00)
[2017-12-19] MEDS ORDERED: FENTANYL PATCH WASTE TD PRN (21:19)
[2017-12-19] MEDS: SUCRALFATE 1 GM TABLET (FP) PO SCH (22:21)
[2017-12-19] MEDS: CHOLESTYRAMINE/SUCROSE 4 GM PACKET PO SCH (22:23)
[2017-12-19] MEDS: RANITIDINE HCL 150 MG TABLET (FP) PO SCH (22:23)
[2017-12-19] MEDS: MONTELUKAST NA 10 MG TABLET PO SCH (22:23)
[2017-12-19] MEDS: METOPROLOL TARTRATE 50 MG TABLET (FP) PO SCH (22:23)
[2017-12-19] MEDS: ESCITALOPRAM OXALATE 20 MG TABLET (FP) PO SCH (22:23)
[2017-12-19 22:50] VITALS: BMI 22.3
[2017-12-19] MEDS: NYSTATIN 500,000 UNITS/5 ML SUSPENSION PO PRN (23:22)
[2017-12-19] MEDS: NICOTINE 14 MG/24 HOURS TOPICAL PATCH TD SCH (23:22)
[2017-12-19] MEDS: SIMETHICONE 80 MG TAB.CHEW (FP) PO PRN (23:27)
[2017-12-20 08:05] LABS: EOS % 2.7 % (0-4.5); HEMATOCRIT 25.6 % (32.4-45.2); HEMOGLOBIN 8.5 GM/dL (10.7-15.3); LYMPH % 32.5 % (8-40); MCHC 33.4 g/dl (32.0-36.0); MEAN CELL VOLUME 80.7 fl (80-96); MEAN PLT VOLUME 9.6 fl (7.5-11.1); NEUT % 59.8 % (42.8-82.8); PLATELET COUNT 97 K/MM3 (134-434); RBC 3.17 M/mm3 (3.60-5.2); RDW 18.5 % (11.6-15.6); WHITE BLOOD COUNT 3.2 K/mm3 (4.0-10.0)
[2017-12-20 08:12] LABS: ANION GAP 7 MMOL/L (8-16); BILIRUBIN,TOTAL 1.3 mg/dL (0.2-1.0); BLOOD UREA NITROGEN 14 mg/dL (7-18); CALCIUM 8.4 mg/dL (8.5-10.1); CHLORIDE 106 mmol/L (98-107); CO2 29 mmol/L (21-32); CREATININE 0.4 mg/dL (0.55-1.02); GLUCOSE,RANDOM 88 mg/dL (74-106); POTASSIUM 3.5 mmol/L (3.5-5.1); SGOT/AST 15 U/L (15-37); SGPT/ALT 25 U/L (12-78); SODIUM 142 mmol/L (136-145); TOT PROT 5.6 g/dl (6.4-8.2)
[2017-12-20 08:13] LABS: ALK PHOS 125 U/L (45-117)
--- NOTE | 2017-12-20 08:14 | PN ---
Progress Note, Physician Chief Complaint: feels a little better less pain but still with diarrhea - Current Medication List Current Medications: Active Medications Albuterol Sulfate (Ventolin Hfa Inhaler -) 2 puff IH Q6H PRN PRN Reason: SHORT OF BREATH/WHEEZING Cholestyramine Resin (Questran Packet -) 4 gm PO BID [facility] Last Admin: 12/19/17 22:23 Dose: 4 gm Dicyclomine HCl (Bentyl -) 10 mg PO Q12H PRN PRN Reason: PAIN Escitalopram Oxalate (Lexapro -) 20 mg PO BID [facility] Last Admin: 12/19/17 22:23 Dose: 20 mg Fentanyl (Duragesic 100mcg Patch -) 2 patch TD Q72H [facility] Last Admin: 12/19/17 21:46 Dose: Not Given Metronidazole (Flagyl 500mg Premixed Ivpb -) 500 mg in 100 mls @ 100 mls/hr IVPB Q8H-IV [facility] Last Admin: 12/20/17 03:27 Dose: 100 mls/hr Lactobacillus Acidophilus (Bacid -) 1 tab PO DAILY [facility] Metoprolol Tartrate (Lopressor -) 50 mg PO BID [facility] Last Admin: 12/19/17 22:23 Dose: 50 mg Miscellaneous (Duragesic Patch Waste) 1 each TD PRN PRN PRN Reason: REMOVING FENTANYL Montelukast Sodium (Singulair -) 10 mg PO HS [facility] Last Admin: 12/19/17 22:23 Dose: 10 mg Nicotine (Nicoderm Patch -) 14 mg TD DAILY [facility] Last Admin: 12/19/17 23:22 Dose: 14 mg Nystatin (Nystatin Oral Suspension -) 500,000 units PO QID PRN PRN Reason: ORAL THRUSH Last Admin: 12/19/17 23:22 Dose: 500,000 units Ondansetron HCl (Zofran -) 8 mg PO Q8H PRN PRN Reason: NAUSEA Pantoprazole Sodium (Protonix -) 40 mg PO DAILY [facility] Ranitidine HCl (Zantac -) 150 mg PO BID [facility] Last Admin: 12/19/17 22:23 Dose: 150 mg Simethicone (Mylicon -) 80 mg PO Q12H PRN PRN Reason: DYSPEPSIA Last Admin: 12/19/17 23:27 Dose: 80 mg Spironolactone (Aldactone -) 100 mg PO DAILY [facility] Sucralfate (Carafate -) 1 gm PO BID [facility] Last Admin: 12/19/17 22:21 Dose: 1 gm Triamcinolone Acetonide (Aristocort 0.5% Ointment -) 1 applic TP BID [facility] - Objective Vital Signs: Vital Signs Temperature 98.1 F 12/20/17 05:25 Pulse Rate 66 12/20/17 05:25 Respiratory Rate 18 12/20/17 05:25 Blood Pressure 145/76 12/20/17 05:25 O2 Sat by Pulse Oximetry (%) 99 12/19/17 21:00 Constitutional: Yes: No Distress, Calm Eyes: Yes: Conjunctiva Clear HENT: Yes: Atraumatic Neck: Yes: Supple Cardiovascular: Yes: Regular Rate and Rhythm Respiratory: Yes: CTA Bilaterally Gastrointestinal: Yes: Soft. No: Tenderness Genitourinary: No: CVA Tenderness - Left, CVA Tenderness - Right Musculoskeletal: No: Joint Stiffness, Joint Swelling Extremities: No: Cold, Cool Edema: No Integumentary: No: Skin Tear, Venous Stasis Changes Neurological: Yes: WNL, Alert, Oriented ...Motor Strength: WNL Psychiatric: Yes: WNL, Alert, Oriented. No: Agitated, Suicidal Ideation Labs: CBC, BMP 12/19/17 10:55 - ....Imaging Other: Report Reviewed Assessment/Plan Ms. Jacobo is a 47 yo F with a hx of psoriatic arthritis, HTN, COPD, breast CA on active chemotherapy also h/o recurrent CDiff colitis presents to the emergency department with intractable diarrhea. GI and ID f/u IV flagyl;pt said she could not tolerate po flagyl before test stools for CDiff heme onc f/u - might need to old off chemotx d/wpt and staff
[2017-12-20] MEDS: ESCITALOPRAM OXALATE 20 MG TABLET (FP) PO SCH ×2 (09:55→21:39)
[2017-12-20] MEDS: LACTOBACILLUS ACIDOPHILUS 1 TABLET PO SCH (09:55)
[2017-12-20] MEDS: NYSTATIN 500,000 UNITS/5 ML SUSPENSION PO PRN ×2 (09:55→21:54)
[2017-12-20] MEDS: PANTOPRAZOLE 40 MG TABLET (FP) PO SCH (09:55)
[2017-12-20] MEDS: SIMETHICONE 80 MG TAB.CHEW (FP) PO PRN (09:55)
[2017-12-20] MEDS: RANITIDINE HCL 150 MG TABLET (FP) PO SCH ×2 (09:55→21:39)
[2017-12-20] MEDS: CHOLESTYRAMINE/SUCROSE 4 GM PACKET PO SCH ×2 (09:56→21:39)
[2017-12-20] MEDS: SUCRALFATE 1 GM TABLET (FP) PO SCH ×2 (09:56→21:39)
[2017-12-20] MEDS: NICOTINE 14 MG/24 HOURS TOPICAL PATCH TD SCH (09:57)
[2017-12-20] MEDS: SPIRONOLACTONE 25 MG TABLET (FP) PO SCH (09:58)
[2017-12-20] MEDS: METOPROLOL TARTRATE 50 MG TABLET (FP) PO SCH ×2 (09:58→21:39)
--- NOTE | 2017-12-20 13:43 | CONSULT ---
Consultation: REQUESTING PROVIDER: CONSULT REQUEST: We have been asked to medically evaluate this patient for ( breast cancer). HISTORY OF PRESENT ILLNESS: Patient is a 47 year old female came in to the ED with the chief complaints of diarrhea x 3 days. Patient was recently admitted at [facility] on 11/20/17 for second episode of C. diff, was treated with IV Flagyl and PO vancomycin, was discharged home on PO Vanc, she completed the course of antibiotics. Patient reports around 3 weeks ago, she started getting Paclitaxel (85 %), had tingling and burning sensation throughout the body. Hence the dose of Paclitaxel was reduced to 50 %, her symptoms still persisted but was feeling better. Since 2017 she started having diffuse abdominal cramps, non radiating associated with nausea and diarrhoea. She describes it to be watery, fowl smelling, 10-12 episodes a day, no blood noticed. Hence she came in to the ED for further evaluation and treatment. Had decreased urine output. Appetite decreased. Sleep disturbed. 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 diff ALLERGIES: Nickel, timolol, titanium PAST SURGICAL HISTORY: lumpectomy. Laminectomy (C spine discectomy and fusion [facility] 2005, repeat fusion 2006, cervical hardware removed at [facility] 2009), Tonsillectomy, Upper Endoscopy. 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 FAMILY HISTORY: Lives with her sister. Mother from lung cancer (was a smoker) Father from lung cancer (was a smoker) SOCIAL HISTORY: Smoking: Active smoker; started at age of 15 and smokes 7 cig a day . Alcohol: Denies Drugs: Denies REVIEW OF SYSTEMS: CONSTITUTIONAL: Absent: fever, chills, diaphoresis, generalized weakness, malaise, loss of appetite, weight change HEENT: Absent: rhinorrhea, nasal congestion, throat pain, throat swelling, difficulty swallowing, mouth swelling, ear pain, eye pain, visual changes CARDIOVASCULAR: Absent: chest pain, syncope, palpitations, irregular heart rate, lightheadedness , peripheral edema RESPIRATORY: Absent: cough, shortness of breath, dyspnea with exertion, orthopnea, wheezing, stridor, hemoptysis GASTROINTESTINAL: Present: abdominal pain, abdominal distension, nausea,diarrhea, Absent: vomiting, constipation, melena, hematochezia GENITOURINARY: Absent: dysuria, frequency, urgency, hesitancy, hematuria, flank pain, genital pain MUSCULOSKELETAL: Absent: myalgia, arthralgia, joint swelling, back pain, neck pain SKIN: Absent: rash, itching, pallor HEMATOLOGIC/IMMUNOLOGIC: Absent: easy bleeding, easy bruising, lymphadenopathy, frequent infections ENDOCRINE: Absent: unexplained weight gain, unexplained weight loss, heat intolerance, cold intolerance NEUROLOGIC: Absent: headache, focal weakness or paresthesias, dizziness, unsteady gait, seizure, mental status changes, bladder or bowel incontinence PSYCHIATRIC: Absent: anxiety, depression, suicidal or homicidal ideation, hallucinations. PHYSICAL EXAMINATION Vital Signs - 24 hr 12/19/17 12/19/17 12/19/17 18:22 21:00 21:01 Temperature 98.6 F 98.4 F Pulse Rate 89 Pulse Rate [ 91 H Radial] Respiratory 18 18 18 Rate Blood Pressure 147/77 Blood Pressure 147/85 [Right Arm] O2 Sat by Pulse 99 99 Oximetry (%) 12/20/17 12/20/17 05:25 09:00 Temperature 98.1 F Pulse Rate 66 Pulse Rate [ Radial] Respiratory 18 Rate Blood Pressure 145/76 Blood Pressure [Right Arm] O2 Sat by Pulse 99 Oximetry (%) GENERAL: Young female, lying comfortably in bed, Awake, alert, and fully oriented, in no acute distress. HEAD: Normal with no signs of trauma. EYES: EOM intact, no pallor or icterus. EARS, NOSE, THROAT: Ears normal. Moist mucous membranes. NECK: Supple. AXILLA: A small palpable mass in the left axilla, soft, mobile, non tender. BREAST: Mass felt in the left breast. CHEST: Giles cath in place, area is clean and dry. LUNGS: B/L Breath sounds equal, clear to auscultation bilaterally. No wheezes, and no crackles. HEART: Regular rate and rhythm, normal S1 and S2 with loud systolic murmur, rub or gallop. ABDOMEN: Soft, tender to palpation throughout, not distended, normoactive bowel sounds, no guarding, no rebound, no masses. Hepatomegaly +; Spleenomegaly +. MUSCULOSKELETAL: Normal range of motion at all joints. No bony deformities or tenderness. No CVA tenderness. UPPER EXTREMITIES: 2+ pulses, warm, well-perfused. No cyanosis. No clubbing. Cap refill <2 seconds. No peripheral edema. LOWER EXTREMITIES: 2+ pulses, warm, well-perfused. No calf tenderness. No peripheral edema. NEUROLOGICAL: No facial droop. Normal speech. Gait not observed. PSYCHIATRIC: Cooperative. Good eye contact. Appropriate mood and affect. SKIN: Multiple salmon colored lesions throughout the extremities. Warm, dry, normal turgor. Laboratory Results - last 24 hr 12/19/17 12/19/17 12/20/17 15:30 19:50 06:00 WBC 3.2 L RBC 3.17 L Hgb 8.5 L Hct 25.6 L D MCV 80.7 MCH 27.0 MCHC 33.4 RDW 18.5 H Plt Count 97 L MPV 9.6 Absolute Neuts (auto) 1.9 Neutrophils % 59.8 D Lymphocytes % 32.5 D Monocytes % 4.0 D Eosinophils % 2.7 D Basophils % 1.0 Nucleated RBC % 0 Sodium Potassium Chloride Carbon Dioxide Anion Gap BUN Creatinine Creat Clearance w eGFR Random Glucose Calcium Total Bilirubin AST ALT Alkaline Phosphatase Total Protein Albumin Serum , Qual Negative Urine Color [place] Urine Appearance Clear Urine pH 6.0 Ur Specific [place] 1.023 Urine Protein 1+ H Urine Glucose (UA) Negative Urine Ketones Negative Urine Blood Negative Urine Nitrite Negative Urine Bilirubin Negative Urine Urobilinogen 4.0 e.u/dl H Ur Leukocyte Esterase Negative Urine WBC (Auto) 1 Urine RBC (Auto) 1 Ur Epithelial Cells Rare Urine Mucus Rare 12/20/17 06:00 WBC RBC Hgb Hct MCV MCH MCHC RDW Plt Count MPV Absolute Neuts (auto) Neutrophils % Lymphocytes % Monocytes % Eosinophils % Basophils % Nucleated RBC % Sodium 142 Potassium 3.5 Chloride 106 Carbon Dioxide 29 Anion Gap 7 L BUN 14 Creatinine 0.4 L Creat Clearance w eGFR > 60 Random Glucose 88 Calcium 8.4 L Total Bilirubin 1.3 H AST 15 ALT 25 Alkaline Phosphatase 125 H D Total Protein 5.6 L Albumin 3.0 L Serum , Qual Urine Color Urine Appearance Urine pH Ur Specific [place] Urine Protein Urine Glucose (UA) Urine Ketones Urine Blood Urine Nitrite Urine Bilirubin Urine Urobilinogen Ur Leukocyte Esterase Urine WBC (Auto) Urine RBC (Auto) Ur Epithelial Cells Urine Mucus Active Medications Generic Name Dose Route Start Last Admin Trade Name Freq PRN Reason Stop Dose Admin Albuterol Sulfate 2 puff 12/19/17 20:58 Ventolin Hfa Inhaler - IH Q6H PRN SHORT OF BREATH/WHEEZING Cholestyramine Resin 4 gm 12/19/17 22:00 12/20/17 09:56 Questran Packet - PO 4 gm BID ANY Administration Dicyclomine HCl 10 mg 12/19/17 20:58 Bentyl - PO Q12H PRN PAIN Escitalopram Oxalate 20 mg 12/19/17 22:00 12/20/17 09:55 Lexapro - PO 20 mg BID ANY Administration Fentanyl 2 patch 12/19/17 21:00 12/19/17 21:46 Duragesic 100mcg Patch - TD Not Given Q72H ANY Metronidazole 500 mg in 100 mls @ 100 mls/hr 12/19/17 21:15 12/20/17 09:57 Flagyl 500mg Premixed Ivpb - IVPB 100 mls/hr Q8H-IV ANY Administration Lactobacillus Acidophilus 1 tab 12/20/17 10:00 12/20/17 09:55 Bacid - PO 1 tab DAILY [facility] Administration Metoprolol Tartrate 50 mg 12/19/17 22:00 12/20/17 09:58 Lopressor - PO 50 mg BID ANY Administration Miscellaneous 1 each 12/19/17 21:19 Duragesic Patch Waste TD PRN PRN REMOVING FENTANYL Montelukast Sodium 10 mg 12/19/17 22:00 12/19/17 22:23 Singulair - PO 10 mg HS ANY Administration Nicotine 14 mg 12/19/17 23:15 12/20/17 09:57 Nicoderm Patch - TD 14 mg DAILY ANY Administration Nystatin 500,000 units 12/19/17 23:07 12/20/17 09:55 Nystatin Oral Suspension - PO 500,000 units QID PRN Administration ORAL THRUSH Ondansetron HCl 8 mg 12/19/17 20:58 12/20/17 12:07 Zofran - PO 8 mg Q8H PRN Administration NAUSEA Pantoprazole Sodium 40 mg 12/20/17 10:00 12/20/17 09:55 Protonix - PO 40 mg DAILY ANY Administration Ranitidine HCl 150 mg 12/19/17 22:00 12/20/17 09:55 Zantac - PO 150 mg BID ANY Administration Simethicone 80 mg 12/19/17 20:58 12/20/17 09:55 Mylicon - PO 80 mg Q12H PRN Administration DYSPEPSIA Spironolactone 100 mg 12/20/17 10:00 12/20/17 09:58 Aldactone - PO 100 mg DAILY ANY Administration Sucralfate 1 gm 12/19/17 22:00 12/20/17 09:56 Carafate - PO 1 gm BID ANY Administration Triamcinolone Acetonide 1 applic 12/20/17 10:00 Aristocort 0.5% Ointment - TP BID [facility] Patient is a 47 year old female came in to the ED with the chief complaints of diarrhea x 3 days admitted for C. diff treatment. 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 Normocytic anemia H/H 8.5/25.6, likely secondary to chemotherapy Watch for any active bleed Transfuse if Hb is < 7gm/dl C. diff Currently switched IV Flagyl to PO Vancomycin As per ID Rest as per primary. Case discussed with Dr. Sloan. Dispo: We will continue to follow the patient. Thank you for this consultative opportunity.
--- NOTE | 2017-12-20 14:21 | PN ---
Progress Note (short form) - Note Progress Note: ID consult dictated s/p chemo last Monday for Breast Cancer recurrent cdiff- on Monday had 10 BMs, 5 today on iv flagyl she has neuropathy-would d/c flagyl would switch to po vancomycin for 14 days and follow with taper 125 mg po qid for 14 days 125 mf po bid for 7 days 125 mg daily for 7 days 125 mg every two days until chemo is complete she claims she has another 4 to 6 weeks left of chemotherapy continue probiotics Problem List - Problems (1) Recurrent colitis due to Clostridium difficile Code(s): A04.71 - ENTEROCOLITIS DUE TO CLOSTRIDIUM DIFFICILE, RECURRENT (2) Breast cancer Code(s): C50.919 - MALIGNANT NEOPLASM OF UNSP SITE OF UNSPECIFIED FEMALE BREAST
--- NOTE | 2017-12-20 14:50 | CON.GI ---
Consult Consult Specialty:: GI Reason for Consultation:: Diarrhea, colitis - History of Present Illness History of Present Illness: Chart reviewed. Events noted. Known to GI service from prior admissions. The most recent admission was in November of this year for c. diff associated colitis while undergoing breast cancer chemotherapy. It appears that the patient is, again, positive for c.diff toxin. No leukocytosis, or renal abnormalities. Thrombocytopenia and choleastasis are consistent with the underlying liver disease with portal hypertension and non-continuous fundual varices, as noted on EGD in August of this year. No melena, hematochezia, hematemesis, fluctuating abdominal girth, fever, chills , jaundice. - History Source History Provided By: Patient, Medical Record, Caregiver Limitations to Obtaining History: No Limitations - Past Medical History [employer]: Yes: Migraine, Other Cardio/Vascular: Yes: HTN Pulmonary: Yes: COPD Gastrointestinal: Yes: Gastritis Hepatobiliary: Yes: Cirrhosis Renal/: Yes: UTI ...LMP: 08/26/03 ...: No Psych: Yes: Anxiety, Depression Musculoskeletal: Yes: Chronic low back pain Rheumatology: Yes: Other (Psoriatic arthritis) Endocrine: Yes: Diabetes Mellitus Additional Medical History: Chronic lymphadenopathy. Anxiety disorder. Narcotic addiction - Past Surgical History Past Surgical History: Yes: Laminectomy (C spine discectomy and fusion [facility] 2005, repeat fusion 2006, cervical hardware removed at [facility] 2009), Tonsillectomy, Upper Endoscopy - Alcohol/Substance Use Hx Alcohol Use: No History of Substance Use: reports: Prescription - Smoking History Smoking history: Unknown if ever smoked Have you smoked in the past 12 months: No Aproximately how many cigarettes per day: 6 - Social History Usual Living Arrangement: Alone ADL: Independent Occupation: disability History of Recent Travel: No Home Medications - Allergies Allergies/Adverse Reactions: Allergies Allergy/AdvReac Type Severity Reaction Status Date / Time nickel Allergy Intermediate Rash Verified 12/19/17 08:16 timolol Allergy Swelling Verified 12/19/17 08:16 titanium Allergy Verified 12/19/17 08:16 - Home Medications Home Medications: Ambulatory Orders Albuterol Sulfate [Proair Hfa] 2 puff IH PRN PRN 08/04/17 Escitalopram Oxalate [Lexapro -] 20 mg PO Q12H 08/04/17 Esomeprazole Magnesium 40 mg PO DAILY 08/04/17 Lactobacillus Acidophilus [Acidophilus] 1 tab PO DAILY 08/04/17 Metoprolol Tartrate 50 mg PO Q12H 08/04/17 Montelukast Sodium [Singulair] 10 mg PO HS 08/04/17 Ranitidine [Zantac -] 150 mg PO BID 08/04/17 metFORMIN HCL [Metformin HCl] 500 mg PO Q12H 08/04/17 FENTANYL 100mcg PATCH [DURAGESIC 100mcg PATCH -] 2 patch TD Q72H 08/31/17 Simethicone 80 mg PO Q12H PRN 08/31/17 Dicyclomine HCl [Bentyl -] 10 mg PO Q12H PRN 10/18/17 Ondansetron HCl [Zofran] 8 mg PO Q8H PRN 10/18/17 Sucralfate [Carafate -] 1 gm PO Q12H 10/18/17 Cholestyramine/Sucrose [Questran Packet -] 4 gm PO BID #30 packet 11/23/17 Fentanyl Patch Waste [Duragesic Patch Waste] 1 each TD PRN PRN each 11/23/17 Spironolactone [Aldactone -] 100 mg PO DAILY tablet 11/23/17 Triamcinolone 0.5% Ointment [Aristocort 0.5% Ointment -] 1 applic TP BID tube 11/23/17 Vancomycin Oral Solution 125 mg PO Q6HPO #140 ml 11/23/17 Family Disease History - Family Disease History Family Disease History: CA: Father (lung), Mother (lung) Review of Systems Findings/Remarks: as per H&P, ED, HPI Physical Exam-GI Vital Signs: Vital Signs Temperature 98.6 F 12/20/17 14:04 Pulse Rate 66 12/20/17 14:04 Respiratory Rate 18 12/20/17 14:04 Blood Pressure 131/69 12/20/17 14:04 O2 Sat by Pulse Oximetry (%) 99 12/20/17 09:00 Labs: CBC, BMP 12/20/17 06:00 12/20/17 06:00 Laboratory Last Values WBC 3.2 K/mm3 (4.0-10.0) L 12/20/17 06:00 RBC 3.17 M/mm3 (3.60-5.2) L 09/05/18 06:00 Hgb 8.5 GM/dL (10.7-15.3) L 12/20/17 06:00 Hct 25.6 % (32.4-45.2) L D 12/20/17 06:00 MCV 80.7 fl (80-96) 12/20/17 06:00 MCH 27.0 pg (25.7-33.7) 12/20/17 06:00 MCHC 33.4 g/dl (32.0-36.0) 12/20/17 06:00 RDW 18.5 % (11.6-15.6) H 12/20/17 06:00 Plt Count 97 K/MM3 (134-434) L 12/20/17 06:00 MPV 9.6 fl (7.5-11.1) 12/20/17 06:00 Absolute Neuts (auto) 1.9 K/mm3 (1.5-8.0) 12/20/17 06:00 Neutrophils % 59.8 % (42.8-82.8) D 12/20/17 06:00 Lymphocytes % 32.5 % (8-40) D 12/20/17 06:00 Monocytes % 4.0 % (3.8-10.2) D 12/20/17 06:00 Eosinophils % 2.7 % (0-4.5) D 12/20/17 06:00 Basophils % 1.0 % (0-2.0) 12/20/17 06:00 Nucleated RBC % 0 % (0-0) 12/20/17 06:00 Sodium 142 mmol/L (136-145) 12/20/17 06:00 Potassium 3.5 mmol/L (3.5-5.1) 12/20/17 06:00 Chloride 106 mmol/L (98-107) 12/20/17 06:00 Carbon Dioxide 29 mmol/L (21-32) 12/20/17 06:00 Anion Gap 7 MMOL/L (8-16) L 12/20/17 06:00 BUN 14 mg/dL (7-18) 12/20/17 06:00 Creatinine 0.4 mg/dL (0.55-1.02) L 12/20/17 06:00 Creat Clearance w eGFR > 60 (>60) 12/20/17 06:00 Random Glucose 88 mg/dL (74-106) 12/20/17 06:00 Calcium 8.4 mg/dL (8.5-10.1) L 12/20/17 06:00 Total Bilirubin 1.3 mg/dL (0.2-1.0) H 12/20/17 06:00 AST 15 U/L (15-37) 12/20/17 06:00 ALT 25 U/L (12-78) 12/20/17 06:00 Alkaline Phosphatase 125 U/L (45-117) H D 12/20/17 06:00 Total Protein 5.6 g/dl (6.4-8.2) L 12/20/17 06:00 Albumin 3.0 g/dl (3.4-5.0) L 12/20/17 06:00 Serum , Qual Negative 12/19/17 19:50 Urine Color [place] 12/19/17 15:30 Urine Appearance Clear 12/19/17 15:30 Urine pH 6.0 (5.0-8.0) 12/19/17 15:30 Ur Specific [place] 1.023 (1.001-1.035) 12/19/17 15:30 Urine Protein 1+ (NEGATIVE) H 12/19/17 15:30 Urine Glucose (UA) Negative (NEGATIVE) 12/19/17 15:30 Urine Ketones Negative (NEGATIVE) 12/19/17 15:30 Urine Blood Negative (NEGATIVE) 12/19/17 15:30 Urine Nitrite Negative (NEGATIVE) 12/19/17 15:30 Urine Bilirubin Negative (<2.0 mg/dL) 12/19/17 15:30 Urine Urobilinogen 4.0 e.u/dl mg/dL (0.2-1.0) H 12/19/17 15:30 Ur Leukocyte Esterase Negative (NEGATIVE) 12/19/17 15:30 Urine WBC (Auto) 1 /hpf (3-5) 12/19/17 15:30 Urine RBC (Auto) 1 /hpf (0-3) 12/19/17 15:30 Ur Epithelial Cells Rare /HPF (FEW) 12/19/17 15:30 Urine Mucus Rare 12/19/17 15:30 Microbiology 12/19/17 16:30 Stool Clostridium difficile Antigen (VINICIUS) - Final 09/04/18 16:30 Stool Clostridium difficile Toxin Assay - Final Imaging - Results Cat Scan: Report Reviewed Problem List - Problems (1) Clostridium difficile colitis Code(s): A04.72 - ENTEROCOLITIS D/T CLOSTRIDIUM DIFFICILE, NOT SPCF RECUR (2) Breast cancer Code(s): C50.919 - MALIGNANT NEOPLASM OF UNSP SITE OF UNSPECIFIED FEMALE BREAST Assessment/Plan A 47F with compensated liver cirrhosis, breast cancer (undergoing chemotherapy) presents with recurrent c. difficile-associated colitis w/o acute abdomen, or renal insufficiency. NAD, AAOx3, ambulating. Agree with ID recommendation for Vancomycin taper. Cholestyramine and probiotic may be of some benefit. Observe for worsening abdominal symptoms and renal function. Daily CBC, CMP, direct bili, PT/INR. Discussed with the patient.
--- NOTE | 2017-12-20 17:16 | PN ---
Teaching Attending Note Name of Resident: Romelia Pelayo ATTENDING PHYSICIAN STATEMENT I saw and evaluated the patient. I reviewed the resident's note and discussed the case with the resident. I agree with the resident's findings and plan as documented. SUBJECTIVE: Patient seen and examined Triple negative breast cancer on taxol therapy Presents once again with diarrhea c. diff positive Was having 12 bowel movements per day and now decreased to 5 BM's per day Afebrile and abdomen somewhat soft OBJECTIVE:Seen by ID and changed to p.o. vanco which will be given during chemotherapy Received IV flagyl Last Vital Signs Temp Pulse Resp BP Pulse Ox 98.6 F 66 18 131/69 99 12/20/17 14:04 12/20/17 14:04 12/20/17 14:04 12/20/17 14:04 12/20/17 09:00 HEENT: RICK, EOM Intact Oropharynx: No thrush, No mucositis,edentulous Neck: Supple Nodes: Without adenopathy Breasts: left breast mass Cor: RSR, No murmurs, No gallops Lungs: Clear to P&A Abd: soft ; firm liver edge; --8 cm; spleen 4-5 cm Ext:No significant edema Skin: psoriatic rash CBC, BMP 12/20/17 06:00 12/20/17 06:00 Current Medications Generic Name Dose Route Start Last Admin Trade Name Freq PRN Reason Stop Dose Admin Albuterol Sulfate 2 puff 12/19/17 20:58 Ventolin Hfa Inhaler - IH Q6H PRN SHORT OF BREATH/WHEEZING Cholestyramine Resin 4 gm 12/19/17 22:00 12/20/17 09:56 Questran Packet - PO 4 gm BID ANY Administration Dicyclomine HCl 10 mg 12/19/17 20:58 Bentyl - PO Q12H PRN PAIN Escitalopram Oxalate 20 mg 12/19/17 22:00 12/20/17 09:55 Lexapro - PO 20 mg BID ANY Administration Fentanyl 2 patch 12/19/17 21:00 12/19/17 21:46 Duragesic 100mcg Patch - TD Not Given Q72H ANY Lactobacillus Acidophilus 1 tab 12/20/17 10:00 12/20/17 09:55 Bacid - PO 1 tab DAILY ANY Administration Metoprolol Tartrate 50 mg 12/19/17 22:00 12/20/17 09:58 Lopressor - PO 50 mg BID COUNT INCLUDES THE [facility] Administration Miscellaneous 1 each 12/19/17 21:19 Duragesic Patch Waste TD PRN PRN REMOVING FENTANYL Montelukast Sodium 10 mg 12/19/17 22:00 12/19/17 22:23 Singulair - PO 10 mg HS ANY Administration Nicotine 14 mg 12/19/17 23:15 12/20/17 09:57 Nicoderm Patch - TD 14 mg DAILY ANY Administration Nystatin 500,000 units 12/19/17 23:07 12/20/17 09:55 Nystatin Oral Suspension - PO 500,000 units QID PRN Administration ORAL THRUSH Ondansetron HCl 8 mg 12/19/17 20:58 12/20/17 12:07 Zofran - PO 8 mg Q8H PRN Administration NAUSEA Pantoprazole Sodium 40 mg 12/20/17 10:00 12/20/17 09:55 Protonix - PO 40 mg DAILY ANY Administration Ranitidine HCl 150 mg 12/19/17 22:00 12/20/17 09:55 Zantac - PO 150 mg BID ANY Administration Simethicone 80 mg 12/19/17 20:58 12/20/17 09:55 Mylicon - PO 80 mg Q12H PRN Administration DYSPEPSIA Spironolactone 100 mg 12/20/17 10:00 12/20/17 09:58 Aldactone - PO 100 mg DAILY COUNT INCLUDES THE [facility] Administration Sucralfate 1 gm 12/19/17 22:00 12/20/17 09:56 Carafate - PO 1 gm BID COUNT INCLUDES THE [facility] Administration Triamcinolone Acetonide 1 applic 12/20/17 10:00 Aristocort 0.5% Ointment - TP BID COUNT INCLUDES THE [facility] Vancomycin HCl 125 mg 12/20/17 18:00 Vancomycin Oral Solution PO Q6HPO COUNT INCLUDES THE [facility] ASSESSMENT AND PLAN: Impression: Triple negative breast ca C. diff Cirrhosis Anemia Leukopenia Thrombocytopenia Neuropathy Plan: Continue therpay per ID Hold treatment per ID
[2017-12-20] MEDS: VANCOMYCIN 250 MG/5 ML ORAL SOLUTION PO SCH (17:31)
[2017-12-20] MEDS: TRIAMCINOLONE ACET 0.5% OINT 15 GM TUBE TP SCH ×2 (18:51→21:40)
--- NOTE | 2017-12-20 20:12 | CONS ---
DATE OF CONSULTATION: DATE OF DICTATION: 12/20/2017 INFECTIOUS DISEASE CONSULTATION REQUESTING PHYSICIAN: Josephine Groves M.D. CONSULTING PHYSICIAN: Christel Maria M.D. HISTORY OF PRESENT ILLNESS: This is a 47-year-old woman with a history of breast cancer. She is on chemotherapy. I met her last year, this year in November when she presented with diarrhea, and was found to have C. difficile. She had had a prior history of C. difficile and had been treated with Flagyl. In November, she had been having multiple stools. She was started on oral vancomycin and had a good response and was discharged on a 14-day course which she reports she completed. She now returns, she had chemotherapy last week, and she returns with up to 10 stools a day starting on Monday, she now this morning has already had 5. It is nonbloody. She has had some chills but no fever. PAST MEDICAL HISTORY: Notable for breast cancer, liver cirrhosis, hypertension, diabetes, anxiety, COPD, gastritis, and colitis. SURGICAL HISTORY: Notable for lumpectomy, laminectomy of the C-spine with hardware removal in 2009. FAMILY HISTORY: Notable for lung cancer, thoracic aneurysm. 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 ALLERGIES: She is allergic to NICKEL, TIMOLOL, and TITANIUM. MEDICATION: At home include metformin, sucralfate, Aldactone, Zantac, Zofran, Singulair, acidophilus, fentanyl patch, and omeprazole and Lexapro. REVIEW OF SYSTEMS: She was able to eat today, and she reports her stools are nonbloody. She has no shortness of breath. She has no cough or chest pain. PHYSICAL EXAMINATION: VITAL SIGNS: She is afebrile, temperature is 98.6, pulse is 66, blood pressure 131/69, respiratory rate 18, she is saturating 99%. HEENT: Normocephalic. Eyes are anicteric. NECK: Supple. LUNGS: Clear to auscultation. HEART: Regular rate and rhythm. ABDOMEN: Soft, nontender. EXTREMITIES: Without edema. LABORATORY: White count 3.2, hemoglobin 8.5, platelets 97,000. BUN and creatinine are 14 and 0.4. C. difficile toxin and antigen are positive. IMPRESSION: In summary, this is a 47-year-old woman with recurrent Clostridium difficile colitis on chemotherapy for breast cancer. She also has a history of neuropathy and currently is in intravenous Flagyl. Would stop the Flagyl at this time, would switch to oral vancomycin for 14 days and follow with a taper. The taper would be first treatment 125 mg p.o. q.i.d. 14 days, then 125 mg p.o. b.i.d. for 7 days, then 125 mg p.o. daily for 7 days, then 125 mg every 2 days until chemotherapy is complete. She claims she has another 4-6 weeks left of her chemotherapy. I would continue probiotics as well. Chris [id number]
[2017-12-20] MEDS: MONTELUKAST NA 10 MG TABLET PO SCH (21:39)
[2017-12-21] MEDS: VANCOMYCIN 250 MG/5 ML ORAL SOLUTION PO SCH ×4 (00:56→17:33)
--- NOTE | 2017-12-21 07:25 | PN ---
Progress Note, Physician Chief Complaint: stools + for CDiff dw pt - will need roasterman po vanco - Current Medication List Current Medications: Active Medications Albuterol Sulfate (Ventolin Hfa Inhaler -) 2 puff IH Q6H PRN PRN Reason: SHORT OF BREATH/WHEEZING Cholestyramine Resin (Questran Packet -) 4 gm PO BID [facility] Last Admin: 12/20/17 21:39 Dose: 4 gm Dicyclomine HCl (Bentyl -) 10 mg PO Q12H PRN PRN Reason: PAIN Escitalopram Oxalate (Lexapro -) 20 mg PO BID [facility] Last Admin: 12/20/17 21:39 Dose: 20 mg Fentanyl (Duragesic 100mcg Patch -) 2 patch TD Q72H [facility] Last Admin: 12/19/17 21:46 Dose: Not Given Lactobacillus Acidophilus (Bacid -) 1 tab PO DAILY [facility] Last Admin: 12/20/17 09:55 Dose: 1 tab Metoprolol Tartrate (Lopressor -) 50 mg PO BID [facility] Last Admin: 12/20/17 21:39 Dose: 50 mg Miscellaneous (Duragesic Patch Waste) 1 each TD PRN PRN PRN Reason: REMOVING FENTANYL Montelukast Sodium (Singulair -) 10 mg PO HS [facility] Last Admin: 12/20/17 21:39 Dose: 10 mg Nicotine (Nicoderm Patch -) 14 mg TD DAILY [facility] Last Admin: 12/20/17 09:57 Dose: 14 mg Nystatin (Nystatin Oral Suspension -) 500,000 units PO QID PRN PRN Reason: ORAL THRUSH Last Admin: 12/20/17 21:54 Dose: 500,000 units Ondansetron HCl (Zofran -) 8 mg PO Q8H PRN PRN Reason: NAUSEA Last Admin: 12/20/17 12:07 Dose: 8 mg Pantoprazole Sodium (Protonix -) 40 mg PO DAILY [facility] Last Admin: 12/20/17 09:55 Dose: 40 mg Ranitidine HCl (Zantac -) 150 mg PO BID [facility] Last Admin: 12/20/17 21:39 Dose: 150 mg Simethicone (Mylicon -) 80 mg PO Q12H PRN PRN Reason: DYSPEPSIA Last Admin: 12/20/17 09:55 Dose: 80 mg Spironolactone (Aldactone -) 100 mg PO DAILY [facility] Last Admin: 12/20/17 09:58 Dose: 100 mg Sucralfate (Carafate -) 1 gm PO BID [facility] Last Admin: 12/20/17 21:39 Dose: 1 gm Triamcinolone Acetonide (Aristocort 0.5% Ointment -) 1 applic TP BID [facility] Last Admin: 12/20/17 21:40 Dose: 1 applic Vancomycin HCl (Vancomycin Oral Solution) 125 mg PO Q6HPO [facility] Last Admin: 12/21/17 05:52 Dose: 125 mg - Objective Vital Signs: Vital Signs Temperature 98.1 F 12/21/17 06:00 Pulse Rate 64 12/21/17 06:00 Respiratory Rate 18 12/21/17 06:00 Blood Pressure 114/63 12/21/17 06:00 O2 Sat by Pulse Oximetry (%) 100 12/20/17 21:00 Constitutional: Yes: No Distress, Calm Eyes: Yes: Conjunctiva Clear HENT: Yes: Atraumatic Neck: Yes: Supple Cardiovascular: Yes: Regular Rate and Rhythm Respiratory: Yes: CTA Bilaterally Gastrointestinal: Yes: Soft. No: Tenderness Genitourinary: No: CVA Tenderness - Left, CVA Tenderness - Right Musculoskeletal: No: Joint Stiffness, Joint Swelling Edema: No Integumentary: Yes: Rash. No: Venous Stasis Changes Neurological: Yes: WNL, Alert, Oriented ...Motor Strength: WNL Psychiatric: Yes: WNL, Alert, Oriented. No: Agitated, Suicidal Ideation Labs: CBC, BMP 12/20/17 06:00 12/20/17 06:00 - ....Imaging Other: Report Reviewed Assessment/Plan Ms. Jacobo is a 47 yo F with a hx of psoriatic arthritis, HTN, COPD, breast CA on active chemotherapy also h/o recurrent CDiff colitis presents to the emergency department with intractable diarrhea. GI and ID f/u - roasterman po antibiotics regimen per ID (vanco) heme onc f/u - chemotx per onc d/wpt and staff
[2017-12-21] MEDS ORDERED: PT OWN MED DRAWER 7, Y5N ONE (09:33)
[2017-12-21] MEDS: PANTOPRAZOLE 40 MG TABLET (FP) PO SCH (09:40)
[2017-12-21] MEDS: ESCITALOPRAM OXALATE 20 MG TABLET (FP) PO SCH ×2 (09:40→22:17)
[2017-12-21] MEDS: RANITIDINE HCL 150 MG TABLET (FP) PO SCH ×2 (09:40→22:17)
[2017-12-21] MEDS: METOPROLOL TARTRATE 50 MG TABLET (FP) PO SCH ×2 (09:40→22:17)
[2017-12-21] MEDS: LACTOBACILLUS ACIDOPHILUS 1 TABLET PO SCH (09:40)
[2017-12-21] MEDS: SPIRONOLACTONE 25 MG TABLET (FP) PO SCH (09:41)
[2017-12-21] MEDS: NICOTINE 14 MG/24 HOURS TOPICAL PATCH TD SCH (09:41)
[2017-12-21] MEDS: SUCRALFATE 1 GM TABLET (FP) PO SCH ×2 (09:41→22:17)
[2017-12-21] MEDS: CHOLESTYRAMINE/SUCROSE 4 GM PACKET PO SCH ×2 (09:42→22:17)
[2017-12-21] MEDS: SIMETHICONE 80 MG TAB.CHEW (FP) PO PRN ×2 (09:50→22:28)
[2017-12-21] MEDS: TRIAMCINOLONE ACET 0.5% OINT 15 GM TUBE TP SCH ×2 (10:05→22:19)
--- NOTE | 2017-12-21 14:17 | PN ---
Physical Exam: SUBJECTIVE: Patient seen and examined at bed side this morning. Had an episode of formed stool. Generalized pain is better today. Denies chest pain, sob, cough , palpitation, abdominal pain, nausea or vomiting. Bladder habit normal. Decreased appetite. Sleep better today. No acute overnight events. OBJECTIVE: Vital Signs Period Temp Pulse Resp BP Sys/Wing Pulse Ox Last 24 Hr 98 F-99.4 F 64-73 18-18 107-128/63-78 100-100 GENERAL: Young female, lying comfortably in bed, Awake, alert, and fully oriented, in no acute distress. HEAD: Normal with no signs of trauma. EYES: EOM intact, no pallor or icterus. EARS, NOSE, THROAT: Ears normal. Moist mucous membranes. NECK: Supple. AXILLA: A small palpable mass in the left axilla, soft, mobile, non tender. BREAST: Mass felt in the left breast. CHEST: Giles cath in place, area is clean and dry. LUNGS: B/L Breath sounds equal, clear to auscultation bilaterally. No wheezes, and no crackles. HEART: Regular rate and rhythm, normal S1 and S2 with loud systolic murmur, rub or gallop. ABDOMEN: Soft, tender to palpation throughout, not distended, normoactive bowel sounds, no guarding, no rebound, no masses. Hepatomegaly +; Spleenomegaly +. MUSCULOSKELETAL: Normal range of motion at all joints. No bony deformities or tenderness. No CVA tenderness. UPPER EXTREMITIES: 2+ pulses, warm, well-perfused. No cyanosis. No clubbing. Cap refill <2 seconds. No peripheral edema. LOWER EXTREMITIES: 2+ pulses, warm, well-perfused. No calf tenderness. No peripheral edema. NEUROLOGICAL: No facial droop. Normal speech. Gait not observed. PSYCHIATRIC: Cooperative. Good eye contact. Appropriate mood and affect. SKIN: Multiple salmon colored lesions throughout the extremities. Warm, dry, normal turgor. Active Medications Generic Name Dose Route Start Last Admin Trade Name Freq PRN Reason Stop Dose Admin Albuterol Sulfate 2 puff 12/19/17 20:58 Ventolin Hfa Inhaler - IH Q6H PRN SHORT OF BREATH/WHEEZING Cholestyramine Resin 4 gm 12/19/17 22:00 12/21/17 09:42 Questran Packet - PO 4 gm BID ANY Administration Dicyclomine HCl 10 mg 12/19/17 20:58 Bentyl - PO Q12H PRN PAIN Escitalopram Oxalate 20 mg 12/19/17 22:00 12/21/17 09:40 Lexapro - PO 20 mg BID ANY Administration Fentanyl 2 patch 12/19/17 21:00 12/19/17 21:46 Duragesic 100mcg Patch - TD Not Given Q72H [facility] Lactobacillus Acidophilus 1 tab 12/20/17 10:00 12/21/17 09:40 Bacid - PO 1 tab DAILY [facility] Administration Metoprolol Tartrate 50 mg 12/19/17 22:00 12/21/17 09:40 Lopressor - PO 50 mg BID [facility] Administration Miscellaneous 1 each 12/19/17 21:19 Duragesic Patch Waste TD PRN PRN REMOVING FENTANYL Montelukast Sodium 10 mg 12/19/17 22:00 12/20/17 21:39 Singulair - PO 10 mg HS [facility] Administration Nicotine 14 mg 12/19/17 23:15 12/21/17 09:41 Nicoderm Patch - TD 14 mg DAILY [facility] Administration Nystatin 500,000 units 12/19/17 23:07 12/20/17 21:54 Nystatin Oral Suspension - PO 500,000 units QID PRN Administration ORAL THRUSH Ondansetron HCl 8 mg 12/19/17 20:58 12/20/17 12:07 Zofran - PO 8 mg Q8H PRN Administration NAUSEA Pantoprazole Sodium 40 mg 12/20/17 10:00 12/21/17 09:40 Protonix - PO 40 mg DAILY ANY Administration Ranitidine HCl 150 mg 12/19/17 22:00 12/21/17 09:40 Zantac - PO 150 mg BID ANY Administration Simethicone 80 mg 12/19/17 20:58 12/21/17 09:50 Mylicon - PO 80 mg Q12H PRN Administration DYSPEPSIA Spironolactone 100 mg 12/20/17 10:00 12/21/17 09:41 Aldactone - PO 100 mg DAILY [facility] Administration Sucralfate 1 gm 12/19/17 22:00 12/21/17 09:41 Carafate - PO 1 gm BID [facility] Administration Triamcinolone Acetonide 1 applic 12/20/17 10:00 12/21/17 10:05 Aristocort 0.5% Ointment - TP 1 applic BID ANY Administration Vancomycin HCl 125 mg 12/20/17 18:00 12/21/17 12:09 Vancomycin Oral Solution PO 125 mg Q6HPO ANY Administration Patient is a 47 year old female came in to the ED with the chief complaints of diarrhea x 3 days admitted for C. diff treatment. 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 Normocytic anemia H/H 8.5/25.6, likely secondary to chemotherapy Watch for any active bleed Transfuse if Hb is < 7gm/dl C. diff Currently on PO Vancomycin As per ID Rest as per primary. Case discussed with Dr. Miller. Dispo: We will continue to follow the patient. Thank you for this consultative opportunity.
--- NOTE | 2017-12-21 20:17 | PN ---
Teaching Attending Note Name of Resident: Romelia Pelayo ATTENDING PHYSICIAN STATEMENT I saw and evaluated the patient. I reviewed the resident's note and discussed the case with the resident. I agree with the resident's findings and plan as documented. Triple negative breast ca C. diff Cirrhosis Neuropathy Will hold chemotherapy this week for recurrent c.diff colitis, will follow up in the office next week
[2017-12-21] MEDS: MONTELUKAST NA 10 MG TABLET PO SCH (22:16)
[2017-12-22] MEDS: VANCOMYCIN 250 MG/5 ML ORAL SOLUTION PO SCH ×3 (00:46→12:17)
[2017-12-22 07:22] LABS: BASO % 0.9 % (0-2.0); EOS % 2.9 % (0-4.5); HEMATOCRIT 25.8 % (32.4-45.2); HEMOGLOBIN 8.5 GM/dL (10.7-15.3); LYMPH % 36.8 % (8-40); MCH 26.8 pg (25.7-33.7); MEAN CELL VOLUME 81.1 fl (80-96); MEAN PLT VOLUME 9.4 fl (7.5-11.1); MONO % 9.1 % (3.8-10.2); NEUT % 50.3 % (42.8-82.8); PLATELET COUNT 111 K/MM3 (134-434); RBC 3.18 M/mm3 (3.60-5.2); RDW 18.5 % (11.6-15.6); WHITE BLOOD COUNT 2.5 K/mm3 (4.0-10.0)
[2017-12-22 07:48] LABS: CHLORIDE 110 mmol/L (98-107); POTASSIUM 3.3 mmol/L (3.5-5.1); SODIUM 144 mmol/L (136-145)
[2017-12-22 07:58] LABS: ALBUMIN 3.1 g/dl (3.4-5.0); ALK PHOS 118 U/L (45-117); ANION GAP 6 MMOL/L (8-16); BILIRUBIN,TOTAL 0.6 mg/dL (0.2-1.0); BLOOD UREA NITROGEN 9 mg/dL (7-18); CALCIUM 8.1 mg/dL (8.5-10.1); CO2 28 mmol/L (21-32); CREATININE 0.4 mg/dL (0.55-1.02); GLUCOSE,RANDOM 75 mg/dL (74-106); SGOT/AST 15 U/L (15-37); SGPT/ALT 21 U/L (12-78); TOT PROT 5.6 g/dl (6.4-8.2)
[2017-12-22] MEDS ORDERED: PT OWN MED DRAWER 7, Y5N ONE (10:08)
[2017-12-22] MEDS: SPIRONOLACTONE 25 MG TABLET (FP) PO SCH (10:11)
[2017-12-22] MEDS: LACTOBACILLUS ACIDOPHILUS 1 TABLET PO SCH (10:18)
[2017-12-22] MEDS: ESCITALOPRAM OXALATE 20 MG TABLET (FP) PO SCH (10:18)
[2017-12-22] MEDS: CHOLESTYRAMINE/SUCROSE 4 GM PACKET PO SCH (10:19)
[2017-12-22] MEDS: SIMETHICONE 80 MG TAB.CHEW (FP) PO PRN (10:20)
[2017-12-22] MEDS: RANITIDINE HCL 150 MG TABLET (FP) PO SCH (10:20)
[2017-12-22] MEDS: SUCRALFATE 1 GM TABLET (FP) PO SCH (10:21)
[2017-12-22] MEDS: METOPROLOL TARTRATE 50 MG TABLET (FP) PO SCH (10:21)
[2017-12-22] MEDS: NICOTINE 14 MG/24 HOURS TOPICAL PATCH TD SCH (10:21)
[2017-12-22] MEDS: PANTOPRAZOLE 40 MG TABLET (FP) PO SCH (10:22)
[2017-12-22] MEDS: TRIAMCINOLONE ACET 0.5% OINT 15 GM TUBE TP SCH (12:13)
[2017-12-22] MEDS ORDERED: POTASSIUM CHLORIDE TABS 20 MEQ TABLET.ER (FP) PO ONE (13:01)
--- NOTE | 2017-12-22 13:15 | DS ---
Physical Examination Vital Signs: Vital Signs Temperature 98.2 F 12/22/17 06:29 Pulse Rate 76 12/22/17 13:08 Respiratory Rate 18 12/22/17 13:08 Blood Pressure 137/87 12/22/17 13:08 O2 Sat by Pulse Oximetry (%) 99 12/22/17 09:00 Findings/Remarks: feels better, to be DC Home on po vanco per ID schedule - ordered Constitutional: Yes: No Distress, Calm Eyes: Yes: Conjunctiva Clear HENT: Yes: Atraumatic Neck: Yes: Supple Cardiovascular: Yes: Regular Rate and Rhythm Respiratory: Yes: CTA Bilaterally Gastrointestinal: Yes: Soft. No: Tenderness Renal/: No: CVA Tenderness - Left, CVA Tenderness - Right Musculoskeletal: No: Joint Stiffness, Joint Swelling Extremities: No: Cold, Cool Edema: No Integumentary: Yes: Rash. No: Venous Stasis Changes Neurological: Yes: WNL, Alert, Oriented ...Motor Strength: WNL Psychiatric: Yes: WNL, Alert, Oriented. No: Agitated, Suicidal Ideation Labs: CBC, BMP 12/22/17 06:10 12/22/17 06:10 Discharge Summary Reason For Visit: Diarrhea Current Active Problems Abdominal pain (Acute) Clostridium difficile colitis (Acute) Diarrhea (Acute) Nausea (Acute) Procedures: Principal: admitted with intractable diarrhea h/o recurrent CDiff colitis, h/o breast CA on chemtx, pancytopenia Other Procedures: IV flagyl followed by po vancomycin, seen by ID GI and heme onc Hospital Course: improved with above; DC home on medical terminologist po vancomycin;f/u as advised. Condition: Stable - Instructions Diet, Activity, Other Instructions: f/u PCP GI and heme onc in 1-2 weeks f/u labs with heme onc RTER if worse or recurrent c/o vancomycin po as ordered (ordered from office, H scripts NOT working) Referrals: Josephine Groves [Primary Care Provider] - Suleman Saucedo MD [Staff Physician] - Charles Sloan MD [Staff Physician] - Disposition: HOME - Home Medications Comprehensive Discharge Medication List: Ambulatory Orders Albuterol Sulfate [Proair Hfa] 2 puff IH PRN PRN 08/04/17 Escitalopram Oxalate [Lexapro -] 20 mg PO Q12H 08/04/17 Esomeprazole Magnesium 40 mg PO DAILY 08/04/17 Lactobacillus Acidophilus [Acidophilus] 1 tab PO DAILY 08/04/17 Metoprolol Tartrate 50 mg PO Q12H 08/04/17 Montelukast Sodium [Singulair] 10 mg PO HS 08/04/17 Ranitidine [Zantac -] 150 mg PO BID 08/04/17 FENTANYL 100mcg PATCH [DURAGESIC 100mcg PATCH -] 2 patch TD Q72H 08/31/17 Simethicone 80 mg PO Q12H PRN 08/31/17 Dicyclomine HCl [Bentyl -] 10 mg PO Q12H PRN 10/18/17 Ondansetron HCl [Zofran] 8 mg PO Q8H PRN 10/18/17 Sucralfate [Carafate -] 1 gm PO Q12H 10/18/17 Cholestyramine/Sucrose [Questran Packet -] 4 gm PO BID #30 packet 11/23/17 Spironolactone [Aldactone -] 100 mg PO DAILY tablet 11/23/17 Triamcinolone 0.5% Ointment [Aristocort 0.5% Ointment -] 1 applic TP BID tube 11/23/17 Nicotine Patch [Nicoderm Patch -] 14 mg TD DAILY patch 12/22/17 Nystatin Oral Suspension - [Nystatin Oral Susp 366657 Units/5 ML -] 500,000 units PO QID PRN cup 12/22/17 Vancomycin Oral Solution 125 mg PO Q6HPO 30 Days ml 12/22/17
[2017-12-22 14:41] VITALS: BP 155/75; PULSE 66; TEMP 98.9
--- NOTE | 2017-12-22 15:02 | PN ---
Progress Note (short form) - Note Progress Note: Patient seen and examiend Denies any complaints Last Vital Signs Temp Pulse Resp BP Pulse Ox 98.9 F 66 18 155/75 99 12/22/17 14:40 12/22/17 14:40 12/22/17 14:40 12/22/17 14:40 12/22/17 09:00 Cor: RSR, No murmurs, No gallops Lungs: Clear to P&A Abd: Soft, Normal bowel sounds, + hepatosplenonegaly Ext:No significant edema Abnormal Lab Results 12/22/17 12/22/17 06:10 06:10 WBC 2.5 L RBC 3.18 L Hgb 8.5 L Hct 25.8 L RDW 18.5 H Plt Count 111 L Absolute Neuts (auto) 1.3 L Potassium 3.3 L Chloride 110 H Anion Gap 6 L Creatinine 0.4 L Calcium 8.1 L Alkaline Phosphatase 118 H Total Protein 5.6 L Albumin 3.1 L Home Medication List Medication Instructions Recorded Confirmed Type Albuterol Sulfate [Proair Hfa] 2 puff IH PRN PRN 08/04/17 12/19/17 History Escitalopram Oxalate [Lexapro -] 20 mg PO Q12H 08/04/17 12/19/17 History Esomeprazole Magnesium 40 mg PO DAILY 08/04/17 12/19/17 History Lactobacillus Acidophilus 1 tab PO DAILY 08/04/17 12/19/17 History [Acidophilus] Metoprolol Tartrate 50 mg PO Q12H 08/04/17 12/19/17 History Montelukast Sodium [Singulair] 10 mg PO HS 08/04/17 12/19/17 History Ranitidine [Zantac -] 150 mg PO BID 08/04/17 12/19/17 History FENTANYL 100mcg PATCH [DURAGESIC 2 patch TD Q72H 08/31/17 12/19/17 History 100mcg PATCH -] Simethicone 80 mg PO Q12H PRN 08/31/17 12/19/17 History Dicyclomine HCl [Bentyl -] 10 mg PO Q12H PRN 10/18/17 12/19/17 History Ondansetron HCl [Zofran] 8 mg PO Q8H PRN 10/18/17 12/19/17 History Sucralfate [Carafate -] 1 gm PO Q12H 10/18/17 12/19/17 History Active Medications Generic Name Dose Route Start Last Admin Trade Name Freq PRN Reason Stop Dose Admin Albuterol Sulfate 2 puff 12/19/17 20:58 Ventolin Hfa Inhaler - IH Q6H PRN SHORT OF BREATH/WHEEZING Cholestyramine Resin 4 gm 12/19/17 22:00 12/22/17 10:19 Questran Packet - PO 4 gm BID ANY Administration Dicyclomine HCl 10 mg 12/19/17 20:58 Bentyl - PO Q12H PRN PAIN Escitalopram Oxalate 20 mg 12/19/17 22:00 12/22/17 10:18 Lexapro - PO 20 mg BID ANY Administration Fentanyl 2 patch 12/19/17 21:00 12/19/17 21:46 Duragesic 100mcg Patch - TD Not Given Q72H [facility] Lactobacillus Acidophilus 1 tab 12/20/17 10:00 12/22/17 10:18 Bacid - PO 1 tab DAILY ANY Administration Metoprolol Tartrate 50 mg 12/19/17 22:00 12/22/17 10:21 Lopressor - PO 50 mg BID ANY Administration Miscellaneous 1 each 12/19/17 21:19 Duragesic Patch Waste TD PRN PRN REMOVING FENTANYL Montelukast Sodium 10 mg 12/19/17 22:00 12/21/17 22:16 Singulair - PO 10 mg HS ANY Administration Nicotine 14 mg 12/19/17 23:15 12/22/17 10:21 Nicoderm Patch - TD 14 mg DAILY ANY Administration Nystatin 500,000 units 12/19/17 23:07 12/20/17 21:54 Nystatin Oral Suspension - PO 500,000 units QID PRN Administration ORAL THRUSH Ondansetron HCl 8 mg 12/19/17 20:58 12/20/17 12:07 Zofran - PO 8 mg Q8H PRN Administration NAUSEA Pantoprazole Sodium 40 mg 12/20/17 10:00 12/22/17 10:22 Protonix - PO 40 mg DAILY ANY Administration Ranitidine HCl 150 mg 12/19/17 22:00 12/22/17 10:20 Zantac - PO 150 mg BID ANY Administration Simethicone 80 mg 12/19/17 20:58 12/22/17 10:20 Mylicon - PO 80 mg Q12H PRN Administration DYSPEPSIA Spironolactone 100 mg 12/20/17 10:00 12/22/17 10:11 Aldactone - PO 100 mg DAILY ANY Administration Sucralfate 1 gm 12/19/17 22:00 12/22/17 10:21 Carafate - PO 1 gm BID ANY Administration Triamcinolone Acetonide 1 applic 12/20/17 10:00 12/22/17 12:13 Aristocort 0.5% Ointment - TP 1 applic BID ANY Administration Vancomycin HCl 125 mg 12/20/17 18:00 12/22/17 12:17 Vancomycin Oral Solution PO 125 mg Q6HPO ANY Administration A/P 47 y/o patient with breast cancer, cirrhosis on weekly taxol for adjuvant therapy. Comes in with diarrhea -- c. diff colitis On PO vanconycin Improved symptomatically Neuropathy--grade 2-3 --slowly improving chemotherapy on hold this week
== END 2017-12-22 17:00 | disposition home or self-care (01) | DRG 372 ==
LOC: JER 08:09 → JERBED 15:27 → J7W 18:55
PROVIDERS: ADMIT Internal Medicine; ATTEND Internal Medicine
DX: A04.71 Enterocolitis due to Clostridium difficile, recurrent (principal); K76.6 Portal hypertension; R10.84 Generalized abdominal pain; J44.9 Chronic obstructive pulmonary disease, unspecified; Z85.3 Personal history of malignant neoplasm of breast; F17.210 Nicotine dependence, cigarettes, uncomplicated; L40.50 Arthropathic psoriasis, unspecified; I73.9 Peripheral vascular disease, unspecified; E11.9 Type 2 diabetes mellitus without complications; Z79.84 Long term (current) use of oral hypoglycemic drugs; K76.0 Fatty (change of) liver, not elsewhere classified; K74.60 Unspecified cirrhosis of liver; F32.9 Major depressive disorder, single episode, unspecified; F41.9 Anxiety disorder, unspecified; D64.9 Anemia, unspecified; G62.9 Polyneuropathy, unspecified; R16.1 Splenomegaly, not elsewhere classified
CPT/HCPCS: 36415; 74176-TC; 74177-TC; 80053; 81003; 81015; 84703; 85025; 87040; 87045; 87046; 87086; 87205; 87324; 87449; 93005; 93010; 99283-25; J7030

== ENCOUNTER 2017-12-28 07:33 | Day surgery (SDC) | payer OTHER ==
[2017-12-28] MEDS ORDERED: DEXAMETHASONE INJECTION 10 MG, DIPHENHYDRAMINE 25 MG, RANITIDINE INJECTION 50 MG in SOD... IVPB ONE (08:00)
[2017-12-28] MEDS ORDERED: PACLITAXEL 102 MG in SODIUM CHLORIDE 250 ML IVPB ONE (08:30)
[2017-12-28] MEDS ORDERED: SODIUM CHLORIDE 250 ML IV ONE ×2 (09:30→12:15)
[2017-12-28 10:35] LABS: BASO % 1.1 % (0-2.0); EOS % 0.6 % (0-4.5); HEMATOCRIT 33.1 % (32.4-45.2); HEMOGLOBIN 10.9 GM/dL (10.7-15.3); LYMPH % 22.9 % (8-40); MCHC 32.9 g/dl (32.0-36.0); MEAN CELL VOLUME 82.1 fl (80-96); MEAN PLT VOLUME 9.1 fl (7.5-11.1); MONO % 9.4 % (3.8-10.2); PLATELET COUNT 104 K/MM3 (134-434); RBC 4.04 M/mm3 (3.60-5.2); RDW 18.5 % (11.6-15.6); WHITE BLOOD COUNT 4.3 K/mm3 (4.0-10.0)
[2017-12-28 11:03] LABS: ALBUMIN 3.7 g/dl (3.4-5.0); ALK PHOS 154 U/L (45-117); ANION GAP 8 MMOL/L (8-16); BILIRUBIN,TOTAL 0.7 mg/dL (0.2-1.0); BLOOD UREA NITROGEN 12 mg/dL (7-18); CALCIUM 8.9 mg/dL (8.5-10.1); CHLORIDE 107 mmol/L (98-107); CO2 27 mmol/L (21-32); CREATININE 0.6 mg/dL (0.55-1.02); GLUCOSE,RANDOM 127 mg/dL (74-106); POTASSIUM 4.3 mmol/L (3.5-5.1); SGOT/AST 32 U/L (15-37); SGPT/ALT 30 U/L (13-61); SODIUM 142 mmol/L (136-145); TOT PROT 6.7 g/dl (6.4-8.2)
[2017-12-28 11:05] LABS: ALBUMIN 3.7 g/dl (3.4-5.0); BILIRUBIN,DIRECT 0.2 mg/dL (0.0-0.2); MAGNESIUM 2.1 mg/dL (1.8-2.4)
[2017-12-28 11:08] LABS: BILIRUBIN,TOTAL 0.6 mg/dL (0.2-1.0); TOT PROT 6.6 g/dl (6.4-8.2)
[2017-12-28] MEDS ORDERED: PACLITAXEL IVPB ONE (13:15)
[2017-12-28] MEDS ORDERED: SODIUM CHLORIDE IVPB ONE (13:15)
[2017-12-28 18:42] VITALS: BP 137/94; PULSE 89; TEMP 99
[2017-12-28] MEDS ORDERED: PORTA CATH FLUSH 10 ML IVPUSH ONE (18:42)
== END 2017-12-28 16:05 | disposition home or self-care (01) ==
LOC: JONCCHEMO 07:33 → J7W 12:29 → JONCCHEMO 16:05
PROVIDERS: ATTEND Internal Medicine Hematology & Oncology
DX: Z51.11 Encounter for antineoplastic chemotherapy (principal); C50.112 Malignant neoplasm of central portion of left female breast; C50.212 Malignant neoplasm of upper-inner quadrant of left female breast
CPT/HCPCS: 36415; 80053; 80076; 83735; 85025; 96361; 96367; 96375; 96413; J1100

== ENCOUNTER 2018-01-04 07:34 | Day surgery (SDC) | payer OTHER ==
[2018-01-04] MEDS ORDERED: [UNRECOGNIZED DRUG - OTHER] IVPB ONE (10:00)
[2018-01-04] MEDS ORDERED: RANITIDINE IVPB ONE (10:00)
[2018-01-04] MEDS ORDERED: DEXAMETHASONE IVPB ONE (10:00)
[2018-01-04] MEDS ORDERED: DIPHENHYDRAMINE IVPB ONE (10:00)
[2018-01-04 10:02] LABS: BASO % 0.4 % (0-2.0); EOS % 0.9 % (0-4.5); HEMATOCRIT 36.8 % (32.4-45.2); HEMOGLOBIN 12.2 GM/dL (10.7-15.3); LYMPH % 18.6 % (8-40); MCHC 33.2 g/dl (32.0-36.0); MEAN CELL VOLUME 81.5 fl (80-96); MEAN PLT VOLUME 9.2 fl (7.5-11.1); MONO % 5.3 % (3.8-10.2); NEUT % 74.8 % (42.8-82.8); PLATELET COUNT 123 K/MM3 (134-434); RBC 4.51 M/mm3 (3.60-5.2); RDW 18.5 % (11.6-15.6); WHITE BLOOD COUNT 6.1 K/mm3 (4.0-10.0)
[2018-01-04 10:29] LABS: ALBUMIN 4.1 g/dl (3.4-5.0); ALK PHOS 163 U/L (45-117); ANION GAP 8 MMOL/L (8-16); BILIRUBIN,DIRECT 0.4 mg/dL (0.0-0.2); BILIRUBIN,TOTAL 0.9 mg/dL (0.2-1); BLOOD UREA NITROGEN 11 mg/dL (7-18); CALCIUM 9.6 mg/dL (8.5-10.1); CHLORIDE 104 mmol/L (98-107); CO2 29 mmol/L (21-32); CREATININE 0.5 mg/dL (0.55-1.3); GLUCOSE,RANDOM 130 mg/dL (74-106); POTASSIUM 4.4 mmol/L (3.5-5.1); SGOT/AST 35 U/L (15-37); SGPT/ALT 43 U/L (13-61); SODIUM 141 mmol/L (136-145); TOT PROT 7.2 g/dl (6.4-8.2)
[2018-01-04] MEDS ORDERED: SODIUM CHLORIDE IVPB ONE (10:30)
[2018-01-04] MEDS ORDERED: PACLITAXEL IVPB ONE (10:30)
[2018-01-04] MEDS ORDERED: SODIUM CHLORIDE 250 ML IV ONE (11:30)
[2018-01-04] MEDS ORDERED: SODIUM CHLORIDE 250 ML IV SCH (12:00)
[2018-01-04] MEDS: SODIUM CHLORIDE 500 ML IV SCH ×2 (13:00→16:28)
[2018-01-04] MEDS ORDERED: SODIUM CHLORIDE 750 ML IV SCH (15:45)
[2018-01-04 16:35] LABS: URINE APPEARANCE CLEAR; URINE BILIRUBIN NEGATIVE (<2.0 mg/dL); URINE COLOR YELLOW; URINE GLUCOSE (UA) NEGATIVE (NEGATIVE); URINE KETONE NEGATIVE (NEGATIVE); URINE LEUK ESTERASE NEGATIVE (NEGATIVE); URINE NITRITE NEGATIVE (NEGATIVE); URINE PROTEIN NEGATIVE (NEGATIVE); URINE UROBILINOGEN NEGATIVE mg/dL (0.2-1.0)
[2018-01-04 17:49] VITALS: BP 144/79; PULSE 104
[2018-01-04] MEDS ORDERED: PORTA CATH FLUSH 10 ML IVPUSH ONE (17:49)
[2018-01-04 18:17] VITALS: TEMP 98.6
== END 2018-01-04 17:45 | disposition home or self-care (01) ==
LOC: JONCCHEMO 07:34 → J7W 12:15 → JONCCHEMO 17:45
PROVIDERS: ATTEND Internal Medicine Hematology & Oncology
DX: Z51.11 Encounter for antineoplastic chemotherapy (principal); C50.112 Malignant neoplasm of central portion of left female breast; C50.212 Malignant neoplasm of upper-inner quadrant of left female breast
CPT/HCPCS: 36415; 80053; 80076; 81003; 83735; 85025; 87040; 87086; 96361; 96367; 96375; 96413; J1100; J7030

== ENCOUNTER 2018-01-11 07:28 | Day surgery (SDC) | payer OTHER ==
[2018-01-11] MEDS ORDERED: DEXAMETHASONE INJECTION 10 MG, DIPHENHYDRAMINE 25 MG, RANITIDINE INJECTION 50 MG in SOD... IVPB ONE (08:00)
[2018-01-11] MEDS ORDERED: PACLITAXEL 120 MG in SODIUM CHLORIDE 250 ML IVPB ONE (08:30)
[2018-01-11] MEDS ORDERED: SODIUM CHLORIDE 250 ML IV ONE (09:30)
[2018-01-11 10:47] LABS: BASO % 0.9 % (0-2.0); EOS % 1.4 % (0-4.5); HEMOGLOBIN 10.9 GM/dL (10.7-15.3); LYMPH % 26.2 % (8-40); MCH 27.2 pg (25.7-33.7); MCHC 32.9 g/dl (32.0-36.0); MEAN CELL VOLUME 82.7 fl (80-96); MEAN PLT VOLUME 9.2 fl (7.5-11.1); MONO % 6.8 % (3.8-10.2); NEUT % 64.7 % (42.8-82.8); PLATELET COUNT 109 K/MM3 (134-434); RBC 3.99 M/mm3 (3.60-5.2); RDW 19.1 % (11.6-15.6); WHITE BLOOD COUNT 4.6 K/mm3 (4.0-10.0)
[2018-01-11 11:28] LABS: ALBUMIN 3.6 g/dl (3.4-5.0); BILIRUBIN,DIRECT 0.3 mg/dL (0.0-0.2); BILIRUBIN,TOTAL 0.7 mg/dL (0.2-1); MAGNESIUM 1.8 mg/dL (1.8-2.4); TOT PROT 6.5 g/dl (6.4-8.2)
[2018-01-11] MEDS ORDERED: SODIUM CHLORIDE 250 ML IV SCH (11:30)
[2018-01-11 11:31] LABS: ALBUMIN 3.4 g/dl (3.4-5.0); ALK PHOS 110 U/L (45-117); ANION GAP 7 MMOL/L (8-16); BILIRUBIN,TOTAL 0.7 mg/dL (0.2-1); BLOOD UREA NITROGEN 14 mg/dL (7-18); CALCIUM 9.1 mg/dL (8.5-10.1); CHLORIDE 107 mmol/L (98-107); CO2 29 mmol/L (21-32); CREATININE 0.5 mg/dL (0.55-1.3); GLUCOSE,RANDOM 97 mg/dL (74-106); POTASSIUM 4.8 mmol/L (3.5-5.1); SGOT/AST 16 U/L (15-37); SGPT/ALT 25 U/L (13-61); SODIUM 143 mmol/L (136-145); TOT PROT 6.5 g/dl (6.4-8.2)
[2018-01-11] MEDS ORDERED: SODIUM CHLORIDE IVPB ONE (11:45)
[2018-01-11] MEDS ORDERED: PACLITAXEL IVPB ONE (11:45)
[2018-01-11 17:36] VITALS: BP 137/69; PULSE 66; TEMP 98.5
[2018-01-11] MEDS ORDERED: PORTA CATH FLUSH 10 ML IVPUSH ONE (17:36)
== END 2018-01-11 15:50 | disposition home or self-care (01) ==
LOC: JONCCHEMO 07:28 → J7W 12:13 → JONCCHEMO 15:50
PROVIDERS: ATTEND Internal Medicine Hematology & Oncology
DX: Z51.11 Encounter for antineoplastic chemotherapy (principal); C50.112 Malignant neoplasm of central portion of left female breast
CPT/HCPCS: 36415; 80053; 80076; 82607; 82747; 83735; 84443; 85014; 85025; 96361; 96367; 96375; 96413; J1100; J7030

== ENCOUNTER → 2018-01-18 | Day surgery (SDC) | payer OTHER ==
[~2018-01-18] MED LIST: DEXAMETHASONE INJECTION 10 MG, DIPHENHYDRAMINE 25 MG, RANITIDINE INJECTION 50 MG in SOD... IVPB ONE; PACLITAXEL IVPB ONE; SODIUM CHLORIDE 250 ML IV ONE; SODIUM CHLORIDE IVPB ONE
[2018-01-18 10:07] VITALS: BP 154/97; PULSE 70; TEMP 98.9
[2018-01-18 10:38] LABS: BASO % 0.7 % (0-2.0); EOS % 1.1 % (0-4.5); HEMATOCRIT 33.2 % (32.4-45.2); HEMOGLOBIN 10.8 GM/dL (10.7-15.3); LYMPH % 24.1 % (8-40); MCH 26.9 pg (25.7-33.7); MCHC 32.6 g/dl (32.0-36.0); MEAN CELL VOLUME 82.3 fl (80-96); MEAN PLT VOLUME 8.9 fl (7.5-11.1); MONO % 7.8 % (3.8-10.2); NEUT % 66.3 % (42.8-82.8); PLATELET COUNT 118 K/MM3 (134-434); RBC 4.03 M/mm3 (3.60-5.2); RDW 19.2 % (11.6-15.6); WHITE BLOOD COUNT 4.9 K/mm3 (4.0-10.0)
[2018-01-18 11:13] LABS: ALBUMIN 3.6 g/dl (3.4-5.0); ALK PHOS 137 U/L (45-117); ANION GAP 6 MMOL/L (8-16); BILIRUBIN,DIRECT 0.4 mg/dL (0.0-0.2); BLOOD UREA NITROGEN 10 mg/dL (7-18); CALCIUM 9.1 mg/dL (8.5-10.1); CHLORIDE 107 mmol/L (98-107); CO2 31 mmol/L (21-32); CREATININE 0.5 mg/dL (0.55-1.3); GLUCOSE,RANDOM 77 mg/dL (74-106); POTASSIUM 3.9 mmol/L (3.5-5.1); SGOT/AST 41 U/L (15-37); SGPT/ALT 61 U/L (13-61); SODIUM 144 mmol/L (136-145); TOT PROT 6.5 g/dl (6.4-8.2)
== END | disposition home or self-care (01) ==
LOC: JONCCHEMO 07:33
PROVIDERS: ATTEND Internal Medicine Hematology & Oncology
PROC: 3E013GC Introduction of Other Therapeutic Substance into Subcutaneous Tissue, Percutaneous Approach (ICD-10-PCS; principal; 2018-01-18)
DX: Z53.8 Procedure and treatment not carried out for other reasons (principal)
CPT/HCPCS: 36415; 80053; 80076; 83735; 85025

== ENCOUNTER 2018-01-25 07:13 | Day surgery (SDC) | payer OTHER ==
[2018-01-25] MEDS ORDERED: SODIUM CHLORIDE 250 ML IV ONE ×2 (09:00→11:15)
[2018-01-25 09:41] LABS: BASO % 0.6 % (0-2.0); EOS % 1.2 % (0-4.5); HEMATOCRIT 33.8 % (32.4-45.2); HEMOGLOBIN 11.1 GM/dL (10.7-15.3); LYMPH % 29.3 % (8-40); MCH 26.9 pg (25.7-33.7); MCHC 32.9 g/dl (32.0-36.0); MEAN CELL VOLUME 81.8 fl (80-96); MEAN PLT VOLUME 8.8 fl (7.5-11.1); MONO % 9.6 % (3.8-10.2); NEUT % 59.3 % (42.8-82.8); PLATELET COUNT 109 K/MM3 (134-434); RBC 4.14 M/mm3 (3.60-5.2); RDW 18.8 % (11.6-15.6)
[2018-01-25] MEDS ORDERED: PALONOSETRON HCL 0.25 MG/5 ML VIAL IVPUSH ONE (10:00)
[2018-01-25] MEDS ORDERED: DEXAMETHASONE INJECTION 10 MG in SODIUM CHLORIDE 50 ML IVPB ONE (10:00)
[2018-01-25 10:09] LABS: ALBUMIN 3.6 g/dl (3.4-5.0); ALK PHOS 128 U/L (45-117); ANION GAP 7 MMOL/L (8-16); BILIRUBIN,TOTAL 0.6 mg/dL (0.2-1); BLOOD UREA NITROGEN 11 mg/dL (7-18); CALCIUM 9.2 mg/dL (8.5-10.1); CHLORIDE 107 mmol/L (98-107); CO2 28 mmol/L (21-32); CREATININE 0.5 mg/dL (0.55-1.3); GLUCOSE,RANDOM 90 mg/dL (74-106); POTASSIUM 3.8 mmol/L (3.5-5.1); SGOT/AST 18 U/L (15-37); SGPT/ALT 31 U/L (13-61); SODIUM 142 mmol/L (136-145); TOT PROT 6.4 g/dl (6.4-8.2)
[2018-01-25 10:11] LABS: ALBUMIN 3.7 g/dl (3.4-5.0); BILIRUBIN,DIRECT 0.2 mg/dL (0.0-0.2); BILIRUBIN,TOTAL 0.6 mg/dL (0.2-1); MAGNESIUM 1.9 mg/dL (1.8-2.4); TOT PROT 6.4 g/dl (6.4-8.2)
[2018-01-25] MEDS ORDERED: FLUOROURACIL 500 MG/10 ML VIAL IVPUSH ONE (10:30)
[2018-01-25] MEDS ORDERED: FOSAPREPITANT DIMEGLUMINE 150 MG in SODIUM CHLORIDE 145 ML IVPB ONE (11:30)
[2018-01-25] MEDS ORDERED: SODIUM CHLORIDE IVPB ONE (11:45)
[2018-01-25] MEDS ORDERED: CYCLOPHOSPHAMIDE IVPB ONE (11:45)
[2018-01-25] MEDS ORDERED: PT OWN MED DRAWER 7, Y5N ONE (12:57)
[2018-01-25] MEDS ORDERED: PORTA CATH FLUSH 10 ML IVPUSH ONE (15:01)
[2018-01-25 15:21] VITALS: BP 122/62; PULSE 64
[2018-01-25 15:22] VITALS: TEMP 98.5
== END 2018-01-25 15:23 | disposition home or self-care (01) ==
LOC: JONCCHEMO 07:13 → J7W 10:51 → JONCCHEMO 15:23
PROVIDERS: ATTEND Internal Medicine Hematology & Oncology
DX: Z51.11 Encounter for antineoplastic chemotherapy (principal); C50.112 Malignant neoplasm of central portion of left female breast
CPT/HCPCS: 36415; 80053; 80076; 83735; 85025; 96361; 96367; 96375; 96409; 96411; 96413; J1100; J1453; J2469; J9070; J9190

== ENCOUNTER 2018-02-15 07:34 | Day surgery (SDC) | payer OTHER ==
[2018-02-15] MEDS ORDERED: SODIUM CHLORIDE 250 ML IV ONE ×2 (09:00→11:00)
[2018-02-15] MEDS ORDERED: DEXAMETHASONE INJECTION 10 MG in SODIUM CHLORIDE 50 ML IVPB ONE (10:00)
[2018-02-15] MEDS ORDERED: PALONOSETRON HCL 0.25 MG/5 ML VIAL IVPUSH ONE (10:00)
[2018-02-15] MEDS ORDERED: SODIUM CHLORIDE IVPB ONE (10:30)
[2018-02-15] MEDS ORDERED: CYCLOPHOSPHAMIDE IVPB ONE (10:30)
[2018-02-15] MEDS ORDERED: FLUOROURACIL 2,500 MG/50 ML VIAL IVPUSH ONE (11:00)
[2018-02-15] MEDS ORDERED: FOSAPREPITANT DIMEGLUMINE 150 MG in SODIUM CHLORIDE 145 ML IVPB ONE (11:15)
[2018-02-15] MEDS ORDERED: SODIUM CHLORIDE 1,000 ML IV SCH (11:30)
[2018-02-15] MEDS ORDERED: SODIUM CHLORIDE 500 ML IV SCH (11:30)
[2018-02-15 12:00] LABS: BASO % 0.5 % (0-2.0); EOS % 2.5 % (0-4.5); HEMATOCRIT 36.4 % (32.4-45.2); HEMOGLOBIN 11.6 GM/dL (10.7-15.3); LYMPH % 27.1 % (8-40); MCH 25.8 pg (25.7-33.7); MCHC 31.8 g/dl (32.0-36.0); MEAN CELL VOLUME 81.4 fl (80-96); MEAN PLT VOLUME 9.6 fl (7.5-11.1); NEUT % 60.9 % (42.8-82.8); PLATELET COUNT 118 K/MM3 (134-434); RBC 4.48 M/mm3 (3.60-5.2); RDW 18.2 % (11.6-15.6); WHITE BLOOD COUNT 5.6 K/mm3 (4.0-10.0)
[2018-02-15 12:08] LABS: ALK PHOS 179 U/L (45-117); ANION GAP 8 MMOL/L (8-16); BILIRUBIN,TOTAL 0.5 mg/dL (0.2-1); BLOOD UREA NITROGEN 15 mg/dL (7-18); CALCIUM 9.2 mg/dL (8.5-10.1); CHLORIDE 105 mmol/L (98-107); CO2 28 mmol/L (21-32); CREATININE 0.5 mg/dL (0.55-1.3); GLUCOSE,RANDOM 80 mg/dL (74-106); POTASSIUM 3.9 mmol/L (3.5-5.1); SGOT/AST 14 U/L (15-37); SGPT/ALT 35 U/L (13-61); SODIUM 142 mmol/L (136-145); TOT PROT 7.1 g/dl (6.4-8.2)
[2018-02-15 12:34] LABS: BILIRUBIN,DIRECT 0.2 mg/dL (0.0-0.2); MAGNESIUM 2.1 mg/dL (1.8-2.4)
[2018-02-15 15:17] VITALS: TEMP 98.7
[2018-02-15] MEDS ORDERED: PORTA CATH FLUSH 10 ML IVPUSH ONE (15:17)
[2018-02-15 15:18] VITALS: BP 116/62; PULSE 70
== END 2018-02-15 15:00 | disposition home or self-care (01) ==
LOC: JONCCHEMO 07:34 → J7W 11:14 → JONCCHEMO 15:00
PROVIDERS: ATTEND Internal Medicine Hematology & Oncology
DX: Z51.11 Encounter for antineoplastic chemotherapy (principal); C50.112 Malignant neoplasm of central portion of left female breast
CPT/HCPCS: 36415; 80053; 80076; 83735; 85025; 96361; 96367; 96375; 96409; 96411; 96413; J1100; J1453; J2469; J9070

== ENCOUNTER 2018-03-07 07:50 | Day surgery (SDC) | payer OTHER ==
[~2018-03-07 07:50] MED LIST changes: +CYCLOPHOSPHAMIDE IVPB ONE; -DEXAMETHASONE INJECTION 10 MG, DIPHENHYDRAMINE 25 MG, RANITIDINE INJECTION 50 MG in SOD... IVPB ONE; -PACLITAXEL IVPB ONE; -SODIUM CHLORIDE 250 ML IV ONE
[2018-03-07] MEDS ORDERED: SODIUM CHLORIDE 250 ML IV ONE (09:00)
[2018-03-07] MEDS ORDERED: PALONOSETRON HCL 0.25 MG/5 ML VIAL IVPUSH ONE (10:00)
[2018-03-07] MEDS ORDERED: DEXAMETHASONE INJECTION 10 MG in SODIUM CHLORIDE 50 ML IVPB ONE (10:00)
[2018-03-07] MEDS ORDERED: CYCLOPHOSPHAMIDE IVPB ONE ×2 (10:30)
[2018-03-07] MEDS ORDERED: SODIUM CHLORIDE IVPB ONE ×2 (10:30)
[2018-03-07] MEDS ORDERED: FLUOROURACIL 500 MG/10 ML VIAL IVPUSH ONE (11:00)
[2018-03-07 11:03] VITALS: PULSE 70
[2018-03-07 12:08] LABS: BASO % 0.9 % (0-2.0); EOS % 2.9 % (0-4.5); HEMATOCRIT 35.6 % (32.4-45.2); HEMOGLOBIN 11.2 GM/dL (10.7-15.3); LYMPH % 31.4 % (8-40); MCHC 31.6 g/dl (32.0-36.0); MEAN CELL VOLUME 78.9 fl (80-96); NEUT % 53.8 % (42.8-82.8); PLATELET COUNT 104 K/MM3 (134-434); RBC 4.51 M/mm3 (3.60-5.2); RDW 18.5 % (11.6-15.6); WHITE BLOOD COUNT 5.1 K/mm3 (4.0-10.0)
[2018-03-07 12:43] LABS: ALBUMIN 3.8 g/dl (3.4-5.0); ALK PHOS 143 U/L (45-117); ANION GAP 4 MMOL/L (8-16); BILIRUBIN,DIRECT 0.2 mg/dL (0.0-0.2); BILIRUBIN,TOTAL 0.4 mg/dL (0.2-1); BLOOD UREA NITROGEN 14 mg/dL (7-18); CALCIUM 8.8 mg/dL (8.5-10.1); CHLORIDE 103 mmol/L (98-107); CO2 33 mmol/L (21-32); CREATININE 0.5 mg/dL (0.55-1.3); GLUCOSE,RANDOM 99 mg/dL (74-106); MAGNESIUM 2.3 mg/dL (1.8-2.4); POTASSIUM 4.4 mmol/L (3.5-5.1); SGOT/AST 38 U/L (15-37); SGPT/ALT 36 U/L (13-61); SODIUM 140 mmol/L (136-145); TOT PROT 6.7 g/dl (6.4-8.2)
[2018-03-07] MEDS ORDERED: FOSAPREPITANT DIMEGLUMINE 150 MG in SODIUM CHLORIDE 145 ML IVPB ONE (13:25)
[2018-03-07] MEDS ORDERED: SODIUM CHLORIDE 500 ML IV SCH (13:30)
[2018-03-07 17:05] VITALS: BP 110/49; TEMP 98.9
== END 2018-03-07 16:55 | disposition home or self-care (01) ==
LOC: JONCCHEMO 07:50 → J7W 12:58 → JONCCHEMO 16:55
PROVIDERS: ATTEND Internal Medicine Hematology & Oncology
DX: Z51.11 Encounter for antineoplastic chemotherapy (principal); C50.112 Malignant neoplasm of central portion of left female breast
CPT/HCPCS: 36415; 80053; 80076; 83735; 85025; 96361; 96367; 96375; 96409; 96411; 96413; J1100; J1453; J2469; J7030; J9070; J9190

== ENCOUNTER 2018-03-15 19:00 | Inpatient (IN) | payer OTHER ==
[2018-03-15 19:22] VITALS: BMI 24.0
--- NOTE | 2018-03-15 19:26 | PDOC ---
Rapid Medical Evaluation Chief Complaint: Urinary Problem Time Seen by Provider: 03/15/18 19:24 Medical Evaluation: Allergies Allergy/AdvReac Type Severity Reaction Status Date / Time nickel Allergy Intermediate Rash Verified 03/15/18 19:22 titanium Allergy Verified 03/15/18 19:22 Vital Signs Temp Pulse Resp BP Pulse Ox 98.9 F 111 H 18 133/75 100 03/15/18 19:16 03/15/18 19:16 03/15/18 19:16 03/15/18 19:16 03/15/18 19:16 03/15/18 19:24 I have performed a brief in-person evaluation of this patient. The patient presents with a chief complaint of: h/o breast CA on chemo report dysuria and discomfort with urination. pt report does not drink lot of water while getting chemo Pertinent physical exam findings:A&O x 3 I have ordered the following: UA,UCx, CBC,CMP The patient will proceed to the ED for further evaluation Discharge Disposition - Diagnosis Dysuria - Referrals - Patient Instructions - Post Discharge Activity
[2018-03-15 19:56] LABS: BASO % 0.5 % (0-2.0); EOS % 1.3 % (0-4.5); HEMATOCRIT 36.6 % (32.4-45.2); HEMOGLOBIN 12.3 GM/dL (10.7-15.3); LYMPH % 19.6 % (8-40); MCH 26.3 pg (25.7-33.7); MCHC 33.7 g/dl (32.0-36.0); MEAN CELL VOLUME 77.9 fl (80-96); MEAN PLT VOLUME 9.6 fl (7.5-11.1); MONO % 8.6 % (3.8-10.2); PLATELET COUNT 109 K/MM3 (134-434); WHITE BLOOD COUNT 4.7 K/mm3 (4.0-10.0)
[2018-03-15 20:18] LABS: ALBUMIN 3.8 g/dl (3.4-5.0); ALK PHOS 149 U/L (45-117); ANION GAP 8 MMOL/L (8-16); BILIRUBIN,TOTAL 0.6 mg/dL (0.2-1); BLOOD UREA NITROGEN 15 mg/dL (7-18); CALCIUM 8.8 mg/dL (8.5-10.1); CHLORIDE 108 mmol/L (98-107); CO2 26 mmol/L (21-32); CREATININE 0.7 mg/dL (0.55-1.3); GLUCOSE,RANDOM 119 mg/dL (74-106); SGOT/AST 58 U/L (15-37); SGPT/ALT 77 U/L (13-61); SODIUM 142 mmol/L (136-145); TOT PROT 6.8 g/dl (6.4-8.2)
[2018-03-15 20:33] LABS: URINE APPEARANCE CLEAR; URINE BILIRUBIN NEGATIVE (<2.0 mg/dL); URINE COLOR DKYELLOW; URINE GLUCOSE (UA) NEGATIVE (NEGATIVE); URINE KETONE NEGATIVE (NEGATIVE); URINE LEUK ESTERASE NEGATIVE (NEGATIVE); URINE NITRITE NEGATIVE (NEGATIVE); URINE PROTEIN NEGATIVE (NEGATIVE); URINE UROBILINOGEN NEGATIVE mg/dL (0.2-1.0)
[2018-03-15] MEDS ORDERED: ONDANSETRON 4 MG/2 ML VIAL IVPUSH ONE (20:40)
[2018-03-15] MEDS ORDERED: PANTOPRAZOLE SODIUM 40 MG VIAL IVPUSH ONE (20:40)
[2018-03-15] MEDS ORDERED: SODIUM CHLORIDE 0.9% 1000 ML INFUS.BAG IV ONE (20:40)
[2018-03-15] MEDS ORDERED: PANTOPRAZOLE SODIUM 40 MG VIAL ONE (20:50)
[2018-03-15] MEDS ORDERED: ONDANSETRON 4 MG/2 ML VIAL ONE (20:50)
--- NOTE | 2018-03-15 21:24 | PDOC ---
History of Present Illness - General Chief Complaint: Urinary Problem Stated Complaint: PCP SENT/URINARY PROBLEM Time Seen by Provider: 03/15/18 19:24 History Source: Patient Exam Limitations: No Limitations - History of Present Illness Initial Comments: Pt is a 47 yo F, with PMH of stage 2 breast CA (s/p L lumpectomy, on chemotherapy every Monday; last dose last week), b/l LE venous insufficiency, liver cirrhosis, HTN, and DM, who is presenting with complaints of dysuria, decreased urine output, and decreased PO food/fluid intake x4 days. Pt states she has nausea at baseline, especially after chemo treatments, but she tried taking her zofran over the past few days with no relief. She has been tolerating ensure shakes PO, but has limited water intake. There are no exacerbating or alleviating factors for the nausea. Pt denies any fevers/chills , headache, vision changes, chest pain, palpitations, SOB, vomiting, new abdominal pain, hematuria, flank pain, diarrhea/constipation, or increased leg swelling from baseline. Pt smokes 6-7 cigarettes per day. Pt denies any alcohol or drug use. Pt denies any recent travel or sick contacts. Pt lives at home with her sister who is present at bedside. 03/15/18 21:40 Past History - Travel Traveled outside of the country in the last 30 days: No Close contact w/someone who was outside of country & ill: No - Past Medical History Allergies/Adverse Reactions: Allergies Allergy/AdvReac Type Severity Reaction Status Date / Time nickel Allergy Intermediate Rash Verified 03/15/18 19:22 titanium Allergy Verified 03/15/18 19:22 Home Medications: Ambulatory Orders Albuterol Sulfate [Proair Hfa] 2 puff IH PRN PRN 08/04/17 Escitalopram Oxalate [Lexapro -] 20 mg PO Q12H 08/04/17 Esomeprazole Magnesium 40 mg PO DAILY 08/04/17 Lactobacillus Acidophilus [Acidophilus] 1 tab PO DAILY 08/04/17 Metoprolol Tartrate 50 mg PO Q12H 08/04/17 Montelukast Sodium [Singulair] 10 mg PO HS 08/04/17 Ranitidine [Zantac -] 150 mg PO BID 08/04/17 FENTANYL 100mcg PATCH [DURAGESIC 100mcg PATCH -] 2 patch TD Q72H 05/17/18 Simethicone 80 mg PO Q12H PRN 08/31/17 Dicyclomine HCl [Bentyl -] 10 mg PO Q12H PRN 10/18/17 Ondansetron HCl [Zofran] 8 mg PO Q8H PRN 10/18/17 Sucralfate [Carafate -] 1 gm PO Q12H 10/18/17 Cholestyramine/Sucrose [Questran Packet -] 4 gm PO BID #30 packet 11/23/17 Spironolactone [Aldactone -] 100 mg PO DAILY tablet 11/23/17 Triamcinolone 0.5% Ointment [Aristocort 0.5% Ointment -] 1 applic TP BID tube 11/23/17 Nicotine Patch [Nicoderm Patch -] 14 mg TD DAILY patch 12/22/17 Nystatin Oral Suspension - [Nystatin Oral Susp 474682 Units/5 ML -] 500,000 units PO QID PRN cup 12/22/17 Vancomycin Oral Solution 125 mg PO Q6HPO 30 Days ml 12/22/17 Asthma: Yes Cancer: Yes (Breast cancer left) Cardiac Disorders: Yes (Peripheral Artery Disease) COPD: No DVT: No Diabetes: Yes HTN: Yes Hypercholesterolemia: Yes Liver Disease: Yes (fatty liver, cirrhosis) Psychiatric Problems: Yes (depression, anxiety) - Surgical History Orthopedic Surgery: Yes (3 neck sx's (2005, 2006, 2009)) - Immunization History Immunization Up to Date: No - Suicide/Smoking/Psychosocial Hx Smoking History: Current every day smoker Have you smoked in the past 12 months: Yes Number of Cigarettes Smoked Daily: 6 Cigars Per Day: 0 Information on smoking cessation initiated: No 'Breaking Loose' booklet given: 09/09/17 Hx Alcohol Use: No Drug/Substance Use Hx: No Substance Use Type: None Hx Substance Use Treatment: No Review of Systems - Review of Systems Able to Perform ROS?: Yes Is the patient limited Lao proficient: No Constitutional: Yes: Loss of Appetite, Malaise, Weight Stable. No: Chills, Diaphoresis, Fever, Weakness HEENTM: No: Blurred Vision, Double Vision, Nose Congestion, Throat Pain, Throat Swelling, Difficulty Swallowing Respiratory: No: Cough, Orthopnea, Shortness of Breath Cardiac (ROS): No: Chest Pain, Edema, Irregular Heart Rate, Lightheadedness, Palpitations, Syncope, Chest Tightness ABD/GI: Yes: Abdominal Distended (pt states chronic from cirrhosis), Nausea, Poor Appetite, Poor Fluid Intake. No: Abd. Pain w/ defecation, Blood Streaked Bowels, Constipated, Diarrhea, Vomiting, Abdominal cramping, Tarry Stools : Yes: Burning, Dysuria. No: Discharge, Frequency, Flank Pain, Hematuria, Incontinence, Pain, Urgency Musculoskeletal: Yes: Joint Pain (chronic since starting chemotherapy). No: Back Pain, Muscle Pain, Muscle Weakness Integumentary: No: Rash Neurological: No: Headache, Seizure, Weakness, Unsteady Gait, Ataxia, Dizziness Psychiatric: Yes: Change in Appetite. No: Sleep Pattern Change Endocrine: No: Increased Hunger, Increased Urine, Change in Weight Hematologic/Lymphatic: No: Anemia, Blood Clots, Easy Bleeding, Easy Bruising, Lymph Node Abnormalities, Swollen Glands All Other Systems: Reviewed and Negative *Physical Exam - Vital Signs Last Vital Signs Temp Pulse Resp BP Pulse Ox 98.9 F 111 H 18 133/75 100 03/15/18 19:16 03/15/18 19:16 03/15/18 19:16 03/15/18 19:16 03/15/18 19:16 - Physical Exam General Appearance: Yes: Nourished, Appropriately Dressed, Mild Distress (Pt appears clinically dry and uncomfortable. Able to lie down and cooperative with exam.). No: Cachetic HEENT: positive: EOMI, DEVIN, Normal ENT Inspection, Normal Voice, Symmetrical, Pharynx Normal, Hearing Grossly Normal, Other (dry oral mucous membranes). negative: Scleral Icterus (R), Scleral Icterus (L), Muffled/Hoarse voice, Pharyngeal Erythema, Tonsillar Exudate, Tonsillar Erythema, Rhinorrhea Neck: positive: Trachea midline, Normal Thyroid, Supple. negative: Tender, Rigid, Lymphadenopathy (R), Lymphadenopathy (L) Respiratory/Chest: positive: Lungs Clear, Normal Breath Sounds. negative: Chest Tender, Respiratory Distress, Accessory Muscle Use, Crackles, Wheezing Cardiovascular: positive: Regular Rhythm, S1, S2, Tachycardia. negative: Regular Rate, Edema (no significant b/l pedal edema), JVD, Murmur Vascular Pulses: Carotid (R): 4+, Carotid (L): 4+ Gastrointestinal/Abdominal: positive: Normal Bowel Sounds, Tender (RUQ tenderness, no rebound or guarding.), Flat, Soft. negative: Organomegaly, Pulsatile Mass, Distended, Guarding, Rebound, Hepatomegaly, Spleenomegaly Rectal Exam: positive: deferred Lymphatic: negative: Adenopathy, Tenderness Musculoskeletal: positive: Normal Inspection. negative: CVA Tenderness Extremity: positive: Normal Capillary Refill, Normal Inspection, Normal Range of Motion, Pelvis Stable. negative: Tender, Delayed Capillary Refill (mild decreased skin turgor), Pedal Edema (no signficant/pitting pedal edema), Calf Tenderness Integumentary: positive: Normal Color, Dry, Warm, Other (R subclavian catheter for access). negative: Jaundice, Clammy, Diaphoresis, Rash, Ecchymosis Neurologic: positive: micro computer data processor II-XII NML intact, Fully Oriented, Alert, Normal Mood/ Affect, Normal Response, Motor Strength 5/5 Moderate Sedation - Procedure Monitoring Vital Signs: Procedure Monitoring Vital Signs Temperature 98.9 F 03/15/18 19:16 Pulse Rate 111 H 03/15/18 19:16 Respiratory Rate 18 03/15/18 19:16 Blood Pressure 133/75 03/15/18 19:16 O2 Sat by Pulse Oximetry (%) 100 03/15/18 19:16 ED Treatment Course - LABORATORY CBC & Chemistry Diagram: 03/15/18 19:43 03/15/18 19:43 - ADDITIONAL ORDERS Additional order review: Laboratory Results 03/15/18 03/15/18 20:09 19:43 Sodium 142 Potassium 4.0 Chloride 108 H Carbon Dioxide 26 Anion Gap 8 BUN 15 Creatinine 0.7 Creat Clearance w eGFR > 60 Random Glucose 119 H Calcium 8.8 Total Bilirubin 0.6 AST 58 H ALT 77 H Alkaline Phosphatase 149 H Total Protein 6.8 Albumin 3.8 Urine Color Dkyellow Urine Appearance Clear Urine pH 5.0 Ur Specific [place] 1.023 Urine Protein Negative Urine Glucose (UA) Negative Urine Ketones Negative Urine Blood Negative Urine Nitrite Negative Urine Bilirubin Negative Urine Urobilinogen Negative Ur Leukocyte Esterase Negative 03/15/18 19:43 RBC 4.70 MCV 77.9 L MCHC 33.7 RDW 19.0 H MPV 9.6 Neutrophils % 70.0 D Lymphocytes % 19.6 D Monocytes % 8.6 Eosinophils % 1.3 Basophils % 0.5 - Medications Given in the ED: ED Medications Discontinued Medications Generic Name Dose Route Start Last Admin Trade Name Min PRN Reason Stop Dose Admin Ondansetron HCl 4 mg 03/15/18 20:40 03/15/18 21:16 Zofran Injection IVPUSH 03/15/18 20:41 4 mg ONCE ONE Administration Pantoprazole Sodium 40 mg 03/15/18 20:40 03/15/18 21:16 Protonix Iv IVPUSH 03/15/18 20:41 40 mg ONCE ONE Administration Sodium Chloride 1,000 ml 03/15/18 20:40 03/15/18 21:16 Normal Saline - IV 03/15/18 20:41 1,000 ml ONCE ONE Administration Medical Decision Making - Medical Decision Making Pt was seen at bedside, also will be seen by attending Dr. Bonilla. Pt presenting with complaints of dysuria, decreased urine output, and decreased PO food/fluid intake x4 days. Pt has PMH of stage 2 breast CA (s/p L lumpectomy, on chemotherapy every Monday; last dose last week), b/l LE venous insufficiency, liver cirrhosis, HTN, and DM. Pt states she has nausea at baseline, especially after chemo treatments, but she tried taking her zofran over the past few days with no relief. She has been tolerating ensure shakes PO , but has limited water intake. Pt denies any fevers/chills, headache, vision changes, chest pain, palpitations, SOB, vomiting, new abdominal pain, hematuria , flank pain, diarrhea/constipation, or increased leg swelling from baseline. PE showed mild RUQ abdominal tenderness to palpation (pt states chronic), no suprapubic or CVA tenderness. Pt afebrile, but tachycardic (HR 111) and pt appears clinically dry. Pt has R subclavian port for access. Considering UTI vs dehydration vs urinary retention vs metastasis/obstruction. Ordered work-up including CBC, CMP, blood cultures, UA, urine culture, chest x- ray, ECG. Provided 4 mg IV zofran, 40 mg IV protonix, and 1 L IV NS for improvement of dehydration and nausea. Will continue to reassess pt and monitor for symptomatic improvement. 03/15/18 21:[address] Josephine Groves to discuss pt for admission. 03/15/18 21:[address] Groves who accepted pt for inpatient med/surg admission. Decision to admit order placed. 03/15/18 21:32 ECG showed NSR, slightly prolonged QTc (488); no ST changes or TWIs different from prior ECG (12/2017). Added-on Mg level, lab called. Will provide 1 mg Mg for QT prolongation if Mg low. 03/15/18 21:38 Mg WNL (2.1), will continue to monitor and hydrate pt. Will not provide Mg at this time. 03/15/18 21:[address] Groves for pt stay. Will continue to monitor pt while she is in the ER. Pt currently resting comfortably and vitals are stable at this time. 03/16/18 00:28 *DC/Admit/Observation/Transfer Diagnosis at time of Disposition: Dysuria, Nausea, Decreased urine output - Discharge Dispostion Condition at time of disposition: Stable Decision to Admit order: Yes - Referrals - Patient Instructions - Post Discharge Activity
--- NOTE | 2018-03-15 21:25 | PDOC ---
Attending Attestation - Resident Resident Name: ArielCheyenne - ED Attending Attestation I have performed the following: I have examined & evaluated the patient, The case was reviewed & discussed with the resident, I agree w/resident's findings & plan, Exceptions are as noted - Medical Decision Making 03/15/18 21:25 I, Dr. Lucrecia Bonilla, DO, attest that this document has been prepared under my direction and personally reviewed by me in its entirety. I further attest, that it accurately reflects all work, treatment, procedures and medical decision -making performed by me. 03/15/18 21:25 a/p: 47yo female with hx of cirrhosis and breast ca on chemo -chemo last week, loose stool, nausea, decreased po intake -pt called dr. miller and c/o decreased urine output -sent for eval of dehydraiton -seen by Dr. Miller in the ED -will send labs, ua, ekg, cxr 03/15/18 21:26 no uti on labs no elevated WBC no fever will place in obs - PMD in Dr. Groves consult placed to Dr. Miller 03/15/18 21:46 resident discussed the case with Dr. Groves who accepts pt to service <Lucrecia Bonilla - Last Filed: 03/15/18 21:46> - HPI HPI: 03/15/18 22:04 The patient is a 47 year old female with a significant past medical history of psoriatic arthritis, HTN, COPD, breast CA ( s/p L lumpectomy on chemotherapy every Monday; last week) who presents to the ED with complaints of dysuria and decreased urine output for 4 days. Patient also reports a decreased PO food/fluid intake for the past 4 days. She states she has nausea at baseline and takes zofran with no relief. Patient notes she has been tolerating ensure shakes but reports limited water intake. Denies fever or chills. Denies chest pain or shortness of breath. Denies any other symptoms. - Physicial Exam PE: 03/15/18 22:04 Constitutional: + Pale appearing, weak appearing. Sunken cheeks. Awake, alert, oriented. No acute distress. Head: Normocephalic. Atraumatic Eyes: PERRL. EOMI. Conjunctivae are not pale. ENT: + Dry tongue. Posterior pharynx without exudates or erythema. Uvula midline. Neck: Supple. Full ROM. No lymphadenopathy. Cardiovascular: + Tachycardic. Regular rhythm. S1, S2 regular. Distal pulses are 2+ and symmetric. Pulmonary/Chest: No evidence of respiratory distress. Clear to auscultation bilaterally No wheezing, rales or rhonchi. Abdominal: + right upper quadrant tenderness, chronic from cirrhosis. Soft and non-distended. No rebound, guarding or rigidity. No organomegaly. No palpable masses. Good bowel sounds. Back: No CVA tenderness. Musculoskeletal: No edema. No cyanosis. No clubbing. Full range of motion in all extremities. Nocalf tenderness. Radial/pedal pulses are intact and 2+ bilaterally Skin: Skin is warm and dry. No petechiae. No purpura. Neurological: Alert and oriented to person, place, and time. Cranial nerves II -XII are grossly intact. Normal speech. Strength is grossly symmetric. No sensory deficits. Psychiatric: Good eye contact. Normal interaction, affect and behavior. <Ahsan Quintero - Last Filed: 03/15/18 22:05> Heart Score/ECG Review - ECG Intrepretation Comment:: 03/15/18 21:44 sinus at 83, nl axis, qtc 488, poor r wave progression, no acute st/t wave findings <Lucrecia Bonilla - Last Filed: 03/15/18 21:46> Attestations - Attestations 03/15/18 22:05 Documentation prepared by Ahsan Quintero, acting as director medical affairs for Lucrecia Bonilla DO <Ahsan Quintero - Last Filed: 03/15/18 22:05>
[2018-03-15 21:52] LABS: MAGNESIUM 2.1 mg/dL (1.8-2.4)
[2018-03-15] MEDS ORDERED: ALBUTEROL SO4 8 GM HFA INHALER IH PRN (23:19)
[2018-03-15] MEDS ORDERED: DICYCLOMINE HCL 10 MG CAPSULE PO PRN (23:19)
[2018-03-15] MEDS ORDERED: SIMETHICONE 80 MG TAB.CHEW (FP) PO PRN (23:19)
[2018-03-15] MEDS ORDERED: fentaNYL 100mcg/hr PATCH.TD72 TD SCH ×2 (23:30→23:42)
[2018-03-15] MEDS ORDERED: FENTANYL PATCH WASTE TD PRN (23:42)
[2018-03-15] MEDS ORDERED: fentaNYL 100mcg/hr PATCH.TD72 ONE (23:57)
[2018-03-16] MEDS: SODIUM CHLORIDE 1,000 ML IV SCH (00:03)
--- NOTE | 2018-03-16 00:08 | CONSULT ---
Consult - text type - Consultation Consultation Note: Patient seen and examined 03/15/18 47 yo female with triple negative breast cancer on chemotherapy, developed worsening nausea, poor PO intake, decreased urinary output - Allergies Allergies/Adverse Reactions: Allergies Allergy/AdvReac Type Severity Reaction Status Date / Time nickel Allergy Intermediate Rash Verified 03/15/18 19:22 titanium Allergy Verified 03/15/18 19:22 - Home Medications Home Medications: Ambulatory Orders Albuterol Sulfate [Proair Hfa] 2 puff IH PRN PRN 08/04/17 Escitalopram Oxalate [Lexapro -] 20 mg PO Q12H 08/04/17 Esomeprazole Magnesium 40 mg PO DAILY 08/04/17 Lactobacillus Acidophilus [Acidophilus] 1 tab PO DAILY 08/04/17 Metoprolol Tartrate 50 mg PO Q12H 08/04/17 Montelukast Sodium [Singulair] 10 mg PO HS 08/04/17 Ranitidine [Zantac -] 150 mg PO BID 08/04/17 FENTANYL 100mcg PATCH [DURAGESIC 100mcg PATCH -] 2 patch TD Q72H 08/31/17 Simethicone 80 mg PO Q12H PRN 08/31/17 Dicyclomine HCl [Bentyl -] 10 mg PO Q12H PRN 10/18/17 Ondansetron HCl [Zofran] 8 mg PO Q8H PRN 10/18/17 Sucralfate [Carafate -] 1 gm PO Q12H 10/18/17 metFORMIN HCL [Glucophage -] 500 mg PO BIDAC 03/17/18 Family Disease History - Family Disease History Family Disease History: CA: Father (lung), Mother (lung) Physical Exam Vital Signs: Vital Signs Temperature 98.4 F 03/17/18 06:00 Pulse Rate 67 03/17/18 06:00 Respiratory Rate 18 03/17/18 06:00 Blood Pressure 129/59 L 03/17/18 06:00 O2 Sat by Pulse Oximetry (%) 100 03/17/18 00:18 Constitutional: Yes: Well Nourished, No Distress, Calm Eyes: Yes: Conjunctiva Clear HENT: Yes: Atraumatic, Normocephalic. No: Thrush Neck: Yes: Supple, Trachea Midline Cardiovascular: Yes: Regular Rate and Rhythm Respiratory: Yes: Regular, CTA Bilaterally Gastrointestinal: Yes: Normal Bowel Sounds, Soft, Hyperactive Bowel Sounds, Tenderness, Epigastrium. No: Distention Renal/: No: Bladder Distention, CVA Tenderness - Left, CVA Tenderness - Right Extremities: Yes: WNL Edema: No Labs/Meds reviewed Assessment/Plan 47 y/o patient with cirrhosis, 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 Last cycle 03/08. Patient missed appoitnments today and oncalling her reported not feeling well, very poor appetite and dysuria and decreased urine out put she was asked o come in to r/o infection and hydration check cultures gentle hydrtion will follow
[2018-03-16] MEDS ORDERED: SUCRALFATE 1 GM TABLET (FP) ONE ×2 (06:49→18:52)
[2018-03-16] MEDS: SUCRALFATE 1 GM TABLET (FP) PO SCH ×2 (06:56→18:51)
--- NOTE | 2018-03-16 07:14 | HP ---
Admitting History and Physical - Primary Care Physician PCP: Josephine Groves S - Admission Chief Complaint: nausea unable to eat dysuria, abdominal pain History of Present Illness: Pt is a 47 yo F, with PMH of stage 2 breast CA (s/p L lumpectomy, on chemotherapy every Monday; last dose last week), b/l LE venous insufficiency, advanced liver cirrhosis, HTN, and DM, UTIs and CDiff colitis recurrent, who is presenting with complaints of dysuria, decreased urine output , nausea and decreased PO food/fluid intake x4 days. Pt states she has nausea at baseline, especially after chemo treatments, but she tried taking her zofran over the past few days with no relief. She has been tolerating ensure shakes PO , but has limited water intake. There are no exacerbating or alleviating factors for the nausea. Pt denies any fevers/chills, headache, vision changes, chest pain, palpitations, SOB, vomiting, new abdominal pain, hematuria, flank pain, diarrhea/constipation, or increased leg swelling from baseline. Pt smokes 6-7 cigarettes per day. Pt denies any alcohol or drug use. Pt denies any recent travel or sick contacts. Pt lives at home with her sister. History Source: Patient, Medical Record Limitations to Obtaining History: No Limitations - Past Medical History [employer]: Yes: Migraine, Other Cardiovascular: Yes: HTN Pulmonary: Yes: COPD Gastrointestinal: Yes: Gastritis Hepatobiliary: Yes: Cirrhosis Renal/: Yes: UTI ...LMP: 08/26/03 Heme/Onc: Yes: Cancer Psych: Yes: Anxiety, Depression Musculoskeletal: Yes: Chronic low back pain Rheumatology: Yes: Other (Psoriatic arthritis) Endocrine: Yes: Diabetes Mellitus - Past Surgical History Past Surgical History: Yes: Laminectomy (C spine discectomy and fusion [facility] 2005, repeat fusion 2006, cervical hardware removed at [facility] 2009), Tonsillectomy, Upper Endoscopy - Smoking History Smoking history: Current every day smoker Have you smoked in the past 12 months: Yes Aproximately how many cigarettes per day: 6 - Alcohol/Substance Use Hx Alcohol Use: No History of Substance Use: reports: Prescription - Social History Usual Living Arrangement: Yes: Other (with sister) ADL: Independent Occupation: disability History of Recent Travel: No Home Medications - Allergies Allergies/Adverse Reactions: Allergies Allergy/AdvReac Type Severity Reaction Status Date / Time nickel Allergy Intermediate Rash Verified 03/15/18 19:22 titanium Allergy Verified 03/15/18 19:22 - Home Medications Home Medications: Ambulatory Orders Albuterol Sulfate [Proair Hfa] 2 puff IH PRN PRN 08/04/17 Escitalopram Oxalate [Lexapro -] 20 mg PO Q12H 08/04/17 Esomeprazole Magnesium 40 mg PO DAILY 08/04/17 Lactobacillus Acidophilus [Acidophilus] 1 tab PO DAILY 08/04/17 Metoprolol Tartrate 50 mg PO Q12H 08/04/17 Montelukast Sodium [Singulair] 10 mg PO HS 08/04/17 Ranitidine [Zantac -] 150 mg PO BID 08/04/17 FENTANYL 100mcg PATCH [DURAGESIC 100mcg PATCH -] 2 patch TD Q72H 08/31/17 Simethicone 80 mg PO Q12H PRN 08/31/17 Dicyclomine HCl [Bentyl -] 10 mg PO Q12H PRN 10/18/17 Ondansetron HCl [Zofran] 8 mg PO Q8H PRN 10/18/17 Sucralfate [Carafate -] 1 gm PO Q12H 10/18/17 Family Disease History - Family Disease History Family Disease History: CA: Father (lung), Mother (lung) Review of Systems - Review of Systems Constitutional: reports: Loss of Appetite, Unintentional Wgt. Loss, Weakness ( general). denies: Chills, Fever, Lethargy, Malaise, Night Sweats HENT: denies: Difficult Swallowing, Ear Pain, Epistaxis Neck: denies: Pain on Movement, Stiffness, Swollen Glands, Tenderness Respiratory: denies: Cough, Hemoptysis, SOB, SOB on Exertion Gastrointestinal: reports: Abdominal Pain (occasional), Nausea. denies: Constipation, Diarrhea, Melena, Rectal Bleeding, Vomiting Genitourinary: reports: Burning, Dysuria. denies: Discharge, Flank Pain Musculoskeletal: reports: Back Pain (chronic) Integumentary: denies: Eczema, Rash, Wound Neurological: denies: Change in LOC, Change in Speech, Confusion, Dizziness, Seizure, Syncope, Tremors, Unsteady Gait Endocrine: reports: Unexplained Weight Loss. denies: Excessive Sweating, Intolerance to Cold, Unexplained Weight Gain Hematology/Lymphatic: denies: Easily Bruised, Excessive Bleeding Psychiatric: reports: Anxiety, Depression. denies: Altered Sleep Pattern, Panic , Suicidal Physical Examination Vital Signs: Vital Signs Temperature 98.9 F 03/16/18 07:04 Pulse Rate 81 03/16/18 07:04 Respiratory Rate 16 03/16/18 07:04 Blood Pressure 129/79 03/16/18 07:04 O2 Sat by Pulse Oximetry (%) 100 03/16/18 07:04 Constitutional: Yes: No Distress, Calm Eyes: Yes: Conjunctiva Clear HENT: Yes: Atraumatic Neck: Yes: Supple Cardiovascular: Yes: Regular Rate and Rhythm Respiratory: Yes: CTA Bilaterally Gastrointestinal: Yes: Soft, Hepatomegaly. No: Distention, Tenderness Renal/: No: CVA Tenderness - Left, CVA Tenderness - Right Musculoskeletal: No: Joint Stiffness, Joint Swelling Extremities: No: Cold, Cool, Cyanosis, Deformity Edema: No Integumentary: Yes: Rash (psoriasis). No: Venous Stasis Changes Neurological: Yes: WNL, Alert, Oriented ...Motor Strength: WNL Psychiatric: Yes: WNL, Alert, Oriented. No: Agitated, Suicidal Ideation Labs: CBC, BMP 03/15/18 19:43 03/15/18 19:43 Imaging - Results Chest X-ray: Report Reviewed Other: Report Reviewed Assessment/Plan Pt is a 47 yo F, with PMH of stage 2 breast CA s/p chemotherapy (last dose last week), b/l LE venous insufficiency, advanced liver cirrhosis, smoker, HTN, and DM, UTIs and CDiff colitis, who is presenting with complaints of dysuria, decreased urine output, and decreased PO food/fluid intake x4 days and failure to thrive IVF, zofran prn Heme onc and GI eval f/u labs, UA UCX CDiff falls DVT pfx pt asked for pain meds - she is on fentanyl patch and she asked for dilaudid said it helped her pain in the past d/w pt risks SE of opiates with chronic use (falls tolerance dependence respiratory failure) she is aware dw pt and staff
[2018-03-16 07:41] LABS: BASO % 0.5 % (0-2.0); EOS % 2.2 % (0-4.5); HEMATOCRIT 34.4 % (32.4-45.2); HEMOGLOBIN 10.9 GM/dL (10.7-15.3); LYMPH % 26.3 % (8-40); MCH 24.9 pg (25.7-33.7); MCHC 31.7 g/dl (32.0-36.0); MEAN CELL VOLUME 78.5 fl (80-96); MEAN PLT VOLUME 9.6 fl (7.5-11.1); MONO % 11.7 % (3.8-10.2); NEUT % 59.3 % (42.8-82.8); PLATELET COUNT 75 K/MM3 (134-434); RBC 4.38 M/mm3 (3.60-5.2); WHITE BLOOD COUNT 2.9 K/mm3 (4.0-10.0)
[2018-03-16] MEDS ORDERED: ONDANSETRON 8 MG TABLET (FP) PO ONE (08:07)
[2018-03-16] MEDS: ONDANSETRON 8 MG TABLET (FP) PO PRN (08:08)
[2018-03-16 08:48] LABS: ALBUMIN 3.3 g/dl (3.4-5.0); ALK PHOS 128 U/L (45-117); ANION GAP 5 MMOL/L (8-16); BILIRUBIN,TOTAL 0.7 mg/dL (0.2-1); BLOOD UREA NITROGEN 15 mg/dL (7-18); CALCIUM 8.3 mg/dL (8.5-10.1); CHLORIDE 109 mmol/L (98-107); CO2 26 mmol/L (21-32); CREATININE 0.5 mg/dL (0.55-1.3); GLUCOSE,RANDOM 97 mg/dL (74-106); POTASSIUM 3.8 mmol/L (3.5-5.1); SGOT/AST 38 U/L (15-37); SGPT/ALT 61 U/L (13-61); SODIUM 141 mmol/L (136-145); TOT PROT 5.8 g/dl (6.4-8.2)
[2018-03-16] MEDS: LACTOBACILLUS ACIDOPHILUS 1 TABLET PO SCH (09:18)
[2018-03-16] MEDS: PANTOPRAZOLE 40 MG TABLET (FP) PO SCH (09:18)
[2018-03-16] MEDS: CHOLESTYRAMINE/SUCROSE 4 GM PACKET PO SCH (09:19)
[2018-03-16] MEDS: RANITIDINE HCL 150 MG TABLET (FP) PO SCH (09:19)
[2018-03-16] MEDS: NICOTINE 14 MG/24 HOURS TOPICAL PATCH TD SCH (09:20)
[2018-03-16] MEDS: TRIAMCINOLONE ACET 0.5% OINT 15 GM TUBE TP SCH (09:20)
[2018-03-16] MEDS: SPIRONOLACTONE 25 MG TABLET (FP) PO SCH (09:20)
[2018-03-16] MEDS: METOPROLOL TARTRATE 50 MG TABLET (FP) PO SCH (09:21)
--- NOTE | 2018-03-16 10:14 | EKG ---
Test Reason : Blood Pressure : / mmHG Vent. Rate : 083 BPM Atrial Rate : 083 BPM P-R Int : 156 ms QRS Dur : 082 ms QT Int : 416 ms P-R-T Axes : 068 017 039 degrees QTc Int : 488 ms NORMAL SINUS RHYTHM PROLONGED QT ABNORMAL ECG WHEN COMPARED WITH ECG OF 04-JAN-2018 11:48, NO SIGNIFICANT CHANGE WAS FOUND Confirmed by JER REESE MD ([id number]) on 03/16/2018 10:14:43 AM Referred By: Confirmed By:JER REESE MD
[2018-03-16] MEDS ORDERED: HYDROmorphone HCl 2 MG/ML VIAL IVPB PRN (10:46)
--- NOTE | 2018-03-16 14:44 | PN ---
Progress Note (short form) - Note Progress Note: Patient seen and examined Complains of some abdominal pains Diminished urine output improved with hydration Last Vital Signs Temp Pulse Resp BP Pulse Ox 98.9 F 81 16 168/91 100 03/16/18 07:04 03/16/18 09:20 03/16/18 07:04 03/16/18 09:20 03/16/18 07:04 HEENT: RICK, EOM Intact Oropharynx: No thrush, No mucositis, edentulous Cor: RSR, No murmurs, No gallops Lungs: Clear to P&A Abd: Soft, Normal bowel sounds, No organomegaly, mild tenderness Ext:No significant edema Skin: No rashes, Integument intact CBC, BMP 03/16/18 07:05 03/16/18 06:00 Current Medications Generic Name Dose Route Start Last Admin Trade Name Freq PRN Reason Stop Dose Admin Albuterol Sulfate 2 puff 03/15/18 23:19 Ventolin Hfa Inhaler - IH Q6H PRN SHORT OF BREATH/WHEEZING Cholestyramine Resin 4 gm 03/16/18 10:00 03/16/18 09:19 Questran Packet - PO 4 gm BID ANY Administration Dicyclomine HCl 10 mg 03/15/18 23:19 Bentyl - PO Q12H PRN PAIN Escitalopram Oxalate 20 mg 03/15/18 23:30 Lexapro - PO Q12H ANY Fentanyl 2 patch 03/15/18 23:42 03/16/18 00:04 Duragesic 100mcg Patch - TD Not Given Q72H ANY Hydromorphone HCl 1 mg 03/16/18 10:46 Dilaudid Vial - IVPB Q8H PRN PAIN LEVEL 7 - 10 Sodium Chloride 1,000 mls @ 42 mls/hr 03/15/18 23:30 03/16/18 00:03 Normal Saline - IV 42 mls/hr ASDIR ANY Administration Lactobacillus Acidophilus 1 tab 03/16/18 10:00 03/16/18 09:18 Bacid - PO 1 tab DAILY ANY Administration Metoprolol Tartrate 50 mg 03/16/18 10:00 03/16/18 09:21 Lopressor - PO 50 mg BID ANY Administration Miscellaneous 1 each 03/15/18 23:42 Duragesic Patch Waste TD PRN PRN PATCH REMOVAL Montelukast Sodium 10 mg 03/16/18 22:00 Singulair - PO HS ANY Nicotine 14 mg 03/16/18 10:00 03/16/18 09:20 Nicoderm Patch - TD Not Given DAILY ANY Ondansetron HCl 8 mg 03/15/18 23:19 03/16/18 08:08 Zofran - PO 8 mg Q8H PRN Administration NAUSEA Pantoprazole Sodium 40 mg 03/16/18 10:00 03/16/18 09:18 Protonix - PO 40 mg DAILY ANY Administration Ranitidine HCl 150 mg 03/16/18 10:00 03/16/18 09:19 Zantac - PO 150 mg BID ANY Administration Simethicone 80 mg 03/15/18 23:19 Mylicon - PO Q12H PRN DYSPEPSIA Spironolactone 100 mg 03/16/18 10:00 03/16/18 09:20 Aldactone - PO 100 mg DAILY ANY Administration Sucralfate 1 gm 03/16/18 07:00 03/16/18 06:56 Carafate - PO 1 gm BIDAC [facility] Administration Triamcinolone Acetonide 1 applic 03/16/18 10:00 03/16/18 09:20 Aristocort 0.5% Ointment - TP Not Given BID [facility] Impression: Breast ca Chemotherapy Cirrhosis Hx of C. difficile Abdominal complaints Urinary complaints- neg u/a Continue with hydration Monitor cbc with worsening pancytopenia likely secondary to chemotherapy check lipase, amylase If abdominal complaints persist- imaging resume p.o. vancomycin
[2018-03-16] MEDS ORDERED: VANCOMYCIN 250 MG/5 ML ORAL SOLUTION PO SCH (15:00)
[2018-03-17] MEDS: METOPROLOL TARTRATE 50 MG TABLET (FP) PO SCH ×3 (00:01→22:00)
[2018-03-17] MEDS: SODIUM CHLORIDE 1,000 ML IV SCH ×2 (00:02→23:47)
[2018-03-17] MEDS: RANITIDINE HCL 150 MG TABLET (FP) PO SCH ×3 (00:02→22:01)
[2018-03-17] MEDS: MONTELUKAST NA 10 MG TABLET PO SCH ×2 (00:02→22:00)
[2018-03-17] MEDS: TRIAMCINOLONE ACET 0.5% OINT 15 GM TUBE TP SCH ×3 (00:03→23:48)
[2018-03-17] MEDS: CHOLESTYRAMINE/SUCROSE 4 GM PACKET PO SCH ×4 (00:13→23:48)
[2018-03-17] MEDS: SUCRALFATE 1 GM TABLET (FP) PO SCH ×2 (07:00→17:18)
--- NOTE | 2018-03-17 07:34 | PN ---
Progress Note, Physician Chief Complaint: feels a little better but still nausea; UA negative; UCx pending seen by heme onc - Current Medication List Current Medications: Active Medications Albuterol Sulfate (Ventolin Hfa Inhaler -) 2 puff IH Q6H PRN PRN Reason: SHORT OF BREATH/WHEEZING Cholestyramine Resin (Questran Packet -) 4 gm PO BID [facility] Last Admin: 03/17/18 00:13 Dose: Not Given Dicyclomine HCl (Bentyl -) 10 mg PO Q12H PRN PRN Reason: PAIN Escitalopram Oxalate (Lexapro -) 20 mg PO Q12H [facility] Fentanyl (Duragesic 100mcg Patch -) 2 patch TD Q72H [facility] Last Admin: 03/16/18 00:04 Dose: Not Given Hydromorphone HCl (Dilaudid Vial -) 1 mg IVPB Q8H PRN PRN Reason: PAIN LEVEL 7 - 10 Sodium Chloride (Normal Saline -) 1,000 mls @ 42 mls/hr IV ASDIR [facility] Last Admin: 03/17/18 00:02 Dose: 42 mls/hr Lactobacillus Acidophilus (Bacid -) 1 tab PO DAILY [facility] Last Admin: 03/16/18 09:18 Dose: 1 tab Metoprolol Tartrate (Lopressor -) 50 mg PO BID [facility] Last Admin: 03/17/18 00:01 Dose: 50 mg Miscellaneous (Duragesic Patch Waste) 1 each TD PRN PRN PRN Reason: PATCH REMOVAL Montelukast Sodium (Singulair -) 10 mg PO HS [facility] Last Admin: 03/17/18 00:02 Dose: 10 mg Nicotine (Nicoderm Patch -) 14 mg TD DAILY [facility] Last Admin: 03/16/18 09:20 Dose: Not Given Ondansetron HCl (Zofran -) 8 mg PO Q8H PRN PRN Reason: NAUSEA Last Admin: 03/16/18 08:08 Dose: 8 mg Pantoprazole Sodium (Protonix -) 40 mg PO DAILY [facility] Last Admin: 03/16/18 09:18 Dose: 40 mg Ranitidine HCl (Zantac -) 150 mg PO BID [facility] Last Admin: 03/17/18 00:02 Dose: 150 mg Simethicone (Mylicon -) 80 mg PO Q12H PRN PRN Reason: DYSPEPSIA Spironolactone (Aldactone -) 100 mg PO DAILY [facility] Last Admin: 03/16/18 09:20 Dose: 100 mg Sucralfate (Carafate -) 1 gm PO BIDAC [facility] Last Admin: 03/17/18 07:00 Dose: 1 gm Triamcinolone Acetonide (Aristocort 0.5% Ointment -) 1 applic TP BID [facility] Last Admin: 03/17/18 00:03 Dose: Not Given Vancomycin HCl (Vancomycin Oral Solution) 250 mg PO BID [facility] - Objective Vital Signs: Vital Signs Temperature 98.4 F 03/17/18 06:00 Pulse Rate 67 03/17/18 06:00 Respiratory Rate 18 03/17/18 06:00 Blood Pressure 129/59 L 03/17/18 06:00 O2 Sat by Pulse Oximetry (%) 100 03/17/18 00:18 Constitutional: Yes: No Distress, Calm Eyes: Yes: Conjunctiva Clear HENT: Yes: Atraumatic Neck: Yes: Supple Cardiovascular: Yes: Regular Rate and Rhythm Respiratory: Yes: CTA Bilaterally Gastrointestinal: Yes: Soft. No: Distention Genitourinary: No: CVA Tenderness - Left, CVA Tenderness - Right Musculoskeletal: No: Joint Stiffness, Joint Swelling Extremities: No: Cold, Cool, Cyanosis Edema: No Integumentary: Yes: Rash. No: Venous Stasis Changes Neurological: Yes: WNL, Alert, Oriented ...Motor Strength: WNL Psychiatric: Yes: WNL, Alert, Oriented. No: Agitated, Suicidal Ideation Labs: CBC, BMP 03/16/18 07:05 03/16/18 06:00 - ....Imaging Other: Report Reviewed Assessment/Plan Pt is a 47 yo F, with PMH of stage 2 breast CA s/p chemotherapy (last dose last week), b/l LE venous insufficiency, advanced liver cirrhosis, smoker, HTN, and DM, UTIs and CDiff colitis, who is presenting with complaints of dysuria, decreased urine output, and decreased PO food/fluid intake x4 days and failure to thrive IVF, zofran prn Heme onc and GI eval f/u labs, UA UCX CDiff falls DVT pfx pt asked for pain meds - she is on fentanyl patch and she asked for dilaudid said it helped her pain in the past d/w pt risks SE of opiates with chronic use (falls tolerance dependence respiratory failure) she is aware dw pt and staff
[2018-03-17 08:20] LABS: BASO % 0.7 % (0-2.0); EOS % 2.3 % (0-4.5); HEMATOCRIT 32.6 % (32.4-45.2); HEMOGLOBIN 10.4 GM/dL (10.7-15.3); LYMPH % 30.1 % (8-40); MCH 24.8 pg (25.7-33.7); MCHC 31.8 g/dl (32.0-36.0); MEAN CELL VOLUME 77.8 fl (80-96); MEAN PLT VOLUME 9.4 fl (7.5-11.1); MONO % 13.1 % (3.8-10.2); NEUT % 53.8 % (42.8-82.8); PLATELET COUNT 77 K/MM3 (134-434); RBC 4.19 M/mm3 (3.60-5.2); RDW 18.7 % (11.6-15.6); WHITE BLOOD COUNT 2.6 K/mm3 (4.0-10.0)
[2018-03-17 08:50] LABS: ALBUMIN 3.4 g/dl (3.4-5.0); ALK PHOS 114 U/L (45-117); AMYLASE 28 U/L (25-115); ANION GAP 7 MMOL/L (8-16); BLOOD UREA NITROGEN 10 mg/dL (7-18); CALCIUM 8.7 mg/dL (8.5-10.1); CHLORIDE 108 mmol/L (98-107); CO2 26 mmol/L (21-32); CREATININE 0.5 mg/dL (0.55-1.3); GLUCOSE,RANDOM 85 mg/dL (74-106); LIPASE 144 U/L (73-393); MAGNESIUM 1.8 mg/dL (1.8-2.4); POTASSIUM 3.7 mmol/L (3.5-5.1); SGOT/AST 19 U/L (15-37); SGPT/ALT 44 U/L (13-61); SODIUM 142 mmol/L (136-145); TOT PROT 5.9 g/dl (6.4-8.2)
[2018-03-17] MEDS ORDERED: PT OWN MED DRAWER 7, Y5N ONE ×3 (09:27→20:39)
[2018-03-17] MEDS ORDERED: fentaNYL 100mcg/hr PATCH.TD72 TD SCH (09:30)
[2018-03-17] MEDS ORDERED: FENTANYL PATCH WASTE TD PRN ×2 (09:30→11:33)
[2018-03-17] MEDS: LACTOBACILLUS ACIDOPHILUS 1 TABLET PO SCH (09:30)
[2018-03-17] MEDS: PANTOPRAZOLE 40 MG TABLET (FP) PO SCH (09:30)
[2018-03-17] MEDS: NICOTINE 14 MG/24 HOURS TOPICAL PATCH TD SCH (09:33)
[2018-03-17] MEDS: SPIRONOLACTONE 25 MG TABLET (FP) PO SCH ×2 (09:33→09:58)
[2018-03-17] MEDS: VANCOMYCIN 250 MG/5 ML ORAL SOLUTION PO SCH ×2 (09:34→22:00)
[2018-03-17] MEDS: ESCITALOPRAM OXALATE 20 MG TABLET (FP) PO SCH ×2 (10:03→22:00)
--- NOTE | 2018-03-17 12:07 | CON.ID ---
Consult Consult Specialty:: infectious disease Referred by:: dr green - History of Present Illness Chief Complaint: unable to eat or drink due to nausea History of Present Illness: 47 yo female with breast cancer on chemotherapy, developed worsening nausea unable to eat or drink, decreased urine outpt was sent to ED for hydration no dysuria has chronic abdominal pain which she reports is worse then usual, no diarrhea, no vomiting last took keflex 3 weeks ago for a scalp cyst no fevers since admission - History Source History Provided By: Patient, Medical Record Limitations to Obtaining History: No Limitations - Past Medical History [employer]: Yes: Migraine, Other Cardio/Vascular: Yes: HTN Pulmonary: Yes: COPD Gastrointestinal: Yes: Gastritis Hepatobiliary: Yes: Cirrhosis Renal/: Yes: UTI ...LMP: 08/26/03 Heme/Onc: Yes: Cancer (breast) Infectious Disease: Yes: C-Diff (recurrent, last episode in 12/2017) Psych: Yes: Anxiety, Depression Musculoskeletal: Yes: Chronic low back pain Rheumatology: Yes: Other (Psoriatic arthritis) Endocrine: Yes: Diabetes Mellitus Additional Medical History: Chronic lymphadenopathy. Anxiety disorder. Narcotic addiction - Past Surgical History Past Surgical History: Yes: Laminectomy (C spine discectomy and fusion [facility] 2005, repeat fusion 2006, cervical hardware removed at [facility] 2009), Tonsillectomy, Upper Endoscopy - Alcohol/Substance Use Hx Alcohol Use: No History of Substance Use: reports: Prescription - Smoking History Smoking history: Current every day smoker Have you smoked in the past 12 months: Yes Aproximately how many cigarettes per day: 6 - Social History Usual Living Arrangement: Alone ADL: Independent Occupation: disability History of Recent Travel: No Home Medications - Allergies Allergies/Adverse Reactions: Allergies Allergy/AdvReac Type Severity Reaction Status Date / Time nickel Allergy Intermediate Rash Verified 03/15/18 19:22 titanium Allergy Verified 03/15/18 19:22 - Home Medications Home Medications: Ambulatory Orders Albuterol Sulfate [Proair Hfa] 2 puff IH PRN PRN 08/04/17 Escitalopram Oxalate [Lexapro -] 20 mg PO Q12H 08/04/17 Esomeprazole Magnesium 40 mg PO DAILY 08/04/17 Lactobacillus Acidophilus [Acidophilus] 1 tab PO DAILY 08/04/17 Metoprolol Tartrate 50 mg PO Q12H 08/04/17 Montelukast Sodium [Singulair] 10 mg PO HS 08/04/17 Ranitidine [Zantac -] 150 mg PO BID 08/04/17 FENTANYL 100mcg PATCH [DURAGESIC 100mcg PATCH -] 2 patch TD Q72H 08/31/17 Simethicone 80 mg PO Q12H PRN 08/31/17 Dicyclomine HCl [Bentyl -] 10 mg PO Q12H PRN 10/18/17 Ondansetron HCl [Zofran] 8 mg PO Q8H PRN 10/18/17 Sucralfate [Carafate -] 1 gm PO Q12H 10/18/17 metFORMIN HCL [Glucophage -] 500 mg PO BIDAC 03/17/18 Family Disease History - Family Disease History Family Disease History: CA: Father (lung), Mother (lung) Review of Systems - Review of Systems Constitutional: denies: Chills, Fever Eyes: reports: No Symptoms HENT: reports: No Symptoms Neck: reports: No Symptoms Cardiovascular: reports: No Symptoms Respiratory: reports: No Symptoms Gastrointestinal: reports: Abdominal Pain, Nausea Genitourinary: reports: No Symptoms. denies: Burning, Dysuria, Flank Pain, Hematuria Physical Exam Vital Signs: Vital Signs Temperature 98.4 F 03/17/18 06:00 Pulse Rate 67 03/17/18 06:00 Respiratory Rate 18 03/17/18 06:00 Blood Pressure 129/59 L 03/17/18 06:00 O2 Sat by Pulse Oximetry (%) 100 03/17/18 00:18 Constitutional: Yes: Well Nourished, No Distress, Calm Eyes: Yes: Conjunctiva Clear HENT: Yes: Atraumatic, Normocephalic. No: Thrush Neck: Yes: Supple, Trachea Midline Cardiovascular: Yes: Regular Rate and Rhythm Respiratory: Yes: Regular, CTA Bilaterally Gastrointestinal: Yes: Normal Bowel Sounds, Soft, Hyperactive Bowel Sounds, Tenderness, Epigastrium. No: Distention Renal/: No: Bladder Distention, CVA Tenderness - Left, CVA Tenderness - Right Extremities: Yes: WNL Edema: No Psychiatric: Yes: Alert, Oriented Labs: CBC, BMP 03/17/18 07:30 03/17/18 07:30 UA is negative Microbiology 03/15/18 20:09 Urine - Urine Clean Catch Urine Culture - Preliminary Non Lactose Fermenting Gnb 03/15/18 23:05 Blood - Peripheral Venous Blood Culture - Preliminary NO GROWTH OBTAINED AFTER 24 HOURS, INCUBATION TO CONTINUE FOR 4 DAYS. 03/15/18 23:00 Blood - Peripheral Venous Blood Culture - Preliminary NO GROWTH OBTAINED AFTER 24 HOURS, INCUBATION TO CONTINUE FOR 4 DAYS. Imaging - Results Chest X-ray: Report Reviewed, Image Reviewed Problem List - Problems (1) Decreased urine output Code(s): R34 - ANURIA AND OLIGURIA (2) Nausea Code(s): R11.0 - NAUSEA (3) Breast cancer Code(s): C50.919 - MALIGNANT NEOPLASM OF UNSP SITE OF UNSPECIFIED FEMALE BREAST Assessment/Plan no dysuria, UA is negative, no need to treat for UTI abdominal pain is midepigastric and not c/w UTI has had multiple episodes of ceiff- currently no diarrhea-on po vancomycin taper ?, will d/w PMD further w/u per primary service
--- NOTE | 2018-03-17 15:56 | PN ---
Progress Note (short form) - Note Progress Note: Patient sen and examined Feels OK Last Vital Signs Temp Pulse Resp BP Pulse Ox 98.1 F 67 19 126/70 98 03/17/18 14:50 03/17/18 14:50 03/17/18 14:50 03/17/18 14:50 03/17/18 09:00 Cor: RSR, No murmurs, No gallops Lungs: Clear to P&A Abd: Soft, Normal bowel sounds, No organomegaly Ext:No significant edema Abnormal Lab Results 03/17/18 03/17/18 07:30 07:30 WBC 2.6 L Hgb 10.4 L MCV 77.8 L MCH 24.8 L MCHC 31.8 L RDW 18.7 H Plt Count 77 L Absolute Neuts (auto) 1.4 L Monocytes % 13.1 H Chloride 108 H Anion Gap 7 L Creatinine 0.5 L Total Protein 5.9 L Active Medications Generic Name Dose Route Start Last Admin Trade Name Freq PRN Reason Stop Dose Admin Albuterol Sulfate 2 puff 03/15/18 23:19 Ventolin Hfa Inhaler - IH Q6H PRN SHORT OF BREATH/WHEEZING Cholestyramine Resin 4 gm 03/16/18 10:00 03/17/18 09:57 Questran Packet - PO 4 gm BID ANY Administration Dicyclomine HCl 10 mg 03/15/18 23:19 Bentyl - PO Q12H PRN PAIN Escitalopram Oxalate 20 mg 03/17/18 10:00 03/17/18 10:03 Lexapro - PO 20 mg BID ANY Administration Fentanyl 2 patch 03/17/18 09:30 03/17/18 09:38 Duragesic 100mcg Patch - TD 2 patch Q72H ANY Administration Hydromorphone HCl 1 mg 03/16/18 10:46 Dilaudid Vial - IVPB Q8H PRN PAIN LEVEL 7 - 10 Sodium Chloride 1,000 mls @ 42 mls/hr 03/15/18 23:30 03/17/18 00:02 Normal Saline - IV 42 mls/hr ASDIR ANY Administration Lactobacillus Acidophilus 1 tab 03/16/18 10:00 03/17/18 09:30 Bacid - PO 1 tab DAILY ANY Administration Metformin HCl 500 mg 03/17/18 16:30 Glucophage - PO BIDAC ANY Metoprolol Tartrate 50 mg 03/16/18 10:00 03/17/18 09:30 Lopressor - PO 50 mg BID ANY Administration Miscellaneous 2 each 03/17/18 11:33 Duragesic Patch Waste TD PRN PRN PATCH REMOVAL Montelukast Sodium 10 mg 03/16/18 22:00 03/17/18 00:02 Singulair - PO 10 mg HS ANY Administration Nicotine 14 mg 03/16/18 10:00 03/17/18 09:33 Nicoderm Patch - TD 14 mg DAILY ANY Administration Ondansetron HCl 8 mg 03/15/18 23:19 03/16/18 08:08 Zofran - PO 8 mg Q8H PRN Administration NAUSEA Pantoprazole Sodium 40 mg 03/16/18 10:00 03/17/18 09:30 Protonix - PO 40 mg DAILY ANY Administration Ranitidine HCl 150 mg 03/16/18 10:00 03/17/18 09:30 Zantac - PO 150 mg BID ANY Administration Simethicone 80 mg 03/15/18 23:19 Mylicon - PO Q12H PRN DYSPEPSIA Spironolactone 100 mg 03/16/18 10:00 03/17/18 09:58 Aldactone - PO 100 mg DAILY ANY Administration Sucralfate 1 gm 03/16/18 07:00 03/17/18 07:00 Carafate - PO 1 gm BIDAC ANY Administration Triamcinolone Acetonide 1 applic 03/16/18 10:00 03/17/18 00:03 Aristocort 0.5% Ointment - TP Not Given BID ANY Vancomycin HCl 250 mg 03/17/18 10:00 03/17/18 09:34 Vancomycin Oral Solution PO 250 mg BID ANY Administration A/P 47 y/o patient with cirrhosis, 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 Last cycle 03/08. Patient missed appoitnments today and oncalling her reported not feeling well, very poor appetite and dysuria and decreased urine out put she was asked o come in to r/o infection and hydration gentle hydrtion urine cx -- Gneg. bacilli. U/a negative will discuss with primary/ID teams Monitor CBC On vanco for c.diff prophy during chemotherapy
[2018-03-17] MEDS ORDERED: PORTA CATH FLUSH 10 ML IVPUSH PRN (16:28)
[2018-03-17] MEDS: metFORMIN HCL 500 MG TABLET (FP) PO SCH (17:17)
[2018-03-18] MEDS: SUCRALFATE 1 GM TABLET (FP) PO SCH ×2 (06:16→17:17)
[2018-03-18] MEDS: metFORMIN HCL 500 MG TABLET (FP) PO SCH ×2 (06:17→17:17)
--- NOTE | 2018-03-18 06:52 | PN ---
Progress Note, Physician Chief Complaint: feels weak no appetite but ate better; stomach "growling" and discomfort; awaiting GI eval CDiff pending; UCx noted - no ATB per ID - Current Medication List Current Medications: Active Medications Albuterol Sulfate (Ventolin Hfa Inhaler -) 2 puff IH Q6H PRN PRN Reason: SHORT OF BREATH/WHEEZING Cholestyramine Resin (Questran Packet -) 4 gm PO BID [facility] Last Admin: 03/17/18 23:48 Dose: Not Given Dicyclomine HCl (Bentyl -) 10 mg PO Q12H PRN PRN Reason: PAIN Escitalopram Oxalate (Lexapro -) 20 mg PO BID [facility] Last Admin: 03/17/18 22:00 Dose: 20 mg Fentanyl (Duragesic 100mcg Patch -) 2 patch TD Q72H [facility] Last Admin: 03/17/18 09:38 Dose: 2 patch Hydromorphone HCl (Dilaudid Vial -) 1 mg IVPB Q8H PRN PRN Reason: PAIN LEVEL 7 - 10 IV Flush (Giles-Cath Flush) 10 ml IVPUSH PRN PRN PRN Reason: PROTOCOL Sodium Chloride (Normal Saline -) 1,000 mls @ 42 mls/hr IV ASDIR [facility] Last Admin: 03/17/18 23:47 Dose: 42 mls/hr Lactobacillus Acidophilus (Bacid -) 1 tab PO DAILY [facility] Last Admin: 03/17/18 09:30 Dose: 1 tab Metformin HCl (Glucophage -) 500 mg PO BIDAC [facility] Last Admin: 03/18/18 06:17 Dose: 500 mg Metoprolol Tartrate (Lopressor -) 50 mg PO BID [facility] Last Admin: 03/17/18 22:00 Dose: 50 mg Miscellaneous (Duragesic Patch Waste) 2 each TD PRN PRN PRN Reason: PATCH REMOVAL Montelukast Sodium (Singulair -) 10 mg PO HS [facility] Last Admin: 03/17/18 22:00 Dose: 10 mg Nicotine (Nicoderm Patch -) 14 mg TD DAILY [facility] Last Admin: 03/17/18 09:33 Dose: 14 mg Ondansetron HCl (Zofran -) 8 mg PO Q8H PRN PRN Reason: NAUSEA Last Admin: 03/16/18 08:08 Dose: 8 mg Pantoprazole Sodium (Protonix -) 40 mg PO DAILY [facility] Last Admin: 03/17/18 09:30 Dose: 40 mg Ranitidine HCl (Zantac -) 150 mg PO BID [facility] Last Admin: 03/17/18 22:01 Dose: 150 mg Simethicone (Mylicon -) 80 mg PO Q12H PRN PRN Reason: DYSPEPSIA Last Admin: 03/18/18 04:06 Dose: 80 mg Spironolactone (Aldactone -) 100 mg PO DAILY [facility] Last Admin: 03/17/18 09:58 Dose: 100 mg Sucralfate (Carafate -) 1 gm PO BIDAC [facility] Last Admin: 03/18/18 06:16 Dose: 1 gm Triamcinolone Acetonide (Aristocort 0.5% Ointment -) 1 applic TP BID [facility] Last Admin: 03/17/18 23:48 Dose: 1 applic Vancomycin HCl (Vancomycin Oral Solution) 250 mg PO BID [facility] Last Admin: 03/17/18 22:00 Dose: 250 mg - Objective Vital Signs: Vital Signs Temperature 98.3 F 03/18/18 06:00 Pulse Rate 72 03/18/18 06:00 Respiratory Rate 18 03/18/18 06:00 Blood Pressure 110/63 03/18/18 06:00 O2 Sat by Pulse Oximetry (%) 98 03/17/18 22:00 Constitutional: Yes: No Distress, Calm Eyes: Yes: Conjunctiva Clear HENT: Yes: Atraumatic Neck: Yes: Supple Cardiovascular: Yes: Regular Rate and Rhythm Respiratory: Yes: CTA Bilaterally Gastrointestinal: Yes: Soft, Hepatomegaly Genitourinary: No: CVA Tenderness - Left, CVA Tenderness - Right, Hematuria Musculoskeletal: No: Joint Stiffness, Joint Swelling Extremities: No: Cold, Cool, Cyanosis Edema: No Integumentary: No: Rash, Venous Stasis Changes Neurological: Yes: WNL, Alert, Oriented ...Motor Strength: WNL Psychiatric: Yes: WNL, Alert, Oriented. No: Agitated, Suicidal Ideation Labs: CBC, BMP 03/17/18 07:30 03/17/18 07:30 - ....Imaging Other: Report Reviewed Assessment/Plan Pt is a 47 yo F, with PMH of stage 2 breast CA s/p chemotherapy (last dose last week), b/l LE venous insufficiency, advanced liver cirrhosis, smoker, HTN, and DM, UTIs and CDiff colitis, who is presenting with complaints of dysuria, decreased urine output, and decreased PO food/fluid intake and failure to thrive IVF, zofran prn Heme onc and GI eval f/u labs, UA UCX CDiff falls DVT pfx d/w pt pain meds - she is on fentanyl patch and she asked for dilaudid said it helped her pain in the past d/w pt risks SE of opiates with chronic use (falls tolerance dependence respiratory failure) she is aware dw pt and staff
[2018-03-18 08:38] LABS: ALBUMIN 3.3 g/dl (3.4-5.0); ALK PHOS 105 U/L (45-117); ANION GAP 7 MMOL/L (8-16); BILIRUBIN,TOTAL 0.6 mg/dL (0.2-1); BLOOD UREA NITROGEN 16 mg/dL (7-18); CALCIUM 8.3 mg/dL (8.5-10.1); CHLORIDE 108 mmol/L (98-107); CO2 27 mmol/L (21-32); CREATININE 0.5 mg/dL (0.55-1.3); GLUCOSE,RANDOM 82 mg/dL (74-106); POTASSIUM 3.5 mmol/L (3.5-5.1); SGOT/AST 17 U/L (15-37); SGPT/ALT 35 U/L (13-61); SODIUM 142 mmol/L (136-145); TOT PROT 5.7 g/dl (6.4-8.2)
[2018-03-18 09:52] LABS: BASO % 0.6 % (0-2.0); EOS % 2.8 % (0-4.5); HEMATOCRIT 29.4 % (32.4-45.2); HEMOGLOBIN 9.3 GM/dL (10.7-15.3); LYMPH % 39.1 % (8-40); MCH 24.8 pg (25.7-33.7); MCHC 31.7 g/dl (32.0-36.0); MEAN CELL VOLUME 78.1 fl (80-96); MEAN PLT VOLUME 9.4 fl (7.5-11.1); MONO % 14.5 % (3.8-10.2); PLATELET COUNT 71 K/MM3 (134-434); RBC 3.77 M/mm3 (3.60-5.2); RDW 18.5 % (11.6-15.6); WHITE BLOOD COUNT 2.8 K/mm3 (4.0-10.0)
[2018-03-18] MEDS ORDERED: PT OWN MED DRAWER 7, Y5N ONE (10:02)
[2018-03-18] MEDS: NICOTINE 14 MG/24 HOURS TOPICAL PATCH TD SCH (10:03)
[2018-03-18] MEDS: ESCITALOPRAM OXALATE 20 MG TABLET (FP) PO SCH ×2 (10:04→22:00)
[2018-03-18] MEDS: METOPROLOL TARTRATE 50 MG TABLET (FP) PO SCH ×2 (10:04→22:00)
[2018-03-18] MEDS: SPIRONOLACTONE 25 MG TABLET (FP) PO SCH (10:04)
[2018-03-18] MEDS: LACTOBACILLUS ACIDOPHILUS 1 TABLET PO SCH (10:04)
[2018-03-18] MEDS: RANITIDINE HCL 150 MG TABLET (FP) PO SCH ×2 (10:04→22:00)
[2018-03-18] MEDS: PANTOPRAZOLE 40 MG TABLET (FP) PO SCH (10:04)
[2018-03-18] MEDS: TRIAMCINOLONE ACET 0.5% OINT 15 GM TUBE TP SCH ×2 (10:06→22:03)
[2018-03-18] MEDS: CHOLESTYRAMINE/SUCROSE 4 GM PACKET PO SCH ×2 (10:06→22:02)
[2018-03-18] MEDS: VANCOMYCIN 250 MG/5 ML ORAL SOLUTION PO SCH ×2 (10:12→22:00)
[2018-03-18 10:58] LABS: URINE APPEARANCE CLEAR; URINE BILIRUBIN NEGATIVE (<2.0 mg/dL); URINE COLOR LTYELLOW; URINE GLUCOSE (UA) NEGATIVE (NEGATIVE); URINE KETONE NEGATIVE (NEGATIVE); URINE LEUK ESTERASE NEGATIVE (NEGATIVE); URINE NITRITE NEGATIVE (NEGATIVE); URINE PROTEIN NEGATIVE (NEGATIVE); URINE UROBILINOGEN NEGATIVE mg/dL (0.2-1.0)
[2018-03-18] MEDS: ONDANSETRON 8 MG TABLET (FP) PO PRN (17:17)
[2018-03-18] MEDS: MONTELUKAST NA 10 MG TABLET PO SCH (22:00)
[2018-03-19] MEDS: SUCRALFATE 1 GM TABLET (FP) PO SCH (06:26)
[2018-03-19] MEDS: metFORMIN HCL 500 MG TABLET (FP) PO SCH (06:26)
[2018-03-19 07:02] LABS: BASO % 0.6 % (0-2.0); HEMATOCRIT 33.4 % (32.4-45.2); HEMOGLOBIN 10.8 GM/dL (10.7-15.3); LYMPH % 32.4 % (8-40); MCHC 32.2 g/dl (32.0-36.0); MEAN CELL VOLUME 77.6 fl (80-96); MEAN PLT VOLUME 8.8 fl (7.5-11.1); MONO % 11.2 % (3.8-10.2); NEUT % 53.8 % (42.8-82.8); PLATELET COUNT 83 K/MM3 (134-434); RBC 4.31 M/mm3 (3.60-5.2); RDW 18.9 % (11.6-15.6); WHITE BLOOD COUNT 4.4 K/mm3 (4.0-10.0)
[2018-03-19 07:31] LABS: ALBUMIN 3.9 g/dl (3.4-5.0); ALK PHOS 114 U/L (45-117); ANION GAP 7 MMOL/L (8-16); BILIRUBIN,TOTAL 0.5 mg/dL (0.2-1); BLOOD UREA NITROGEN 11 mg/dL (7-18); CALCIUM 9.1 mg/dL (8.5-10.1); CHLORIDE 105 mmol/L (98-107); CO2 30 mmol/L (21-32); CREATININE 0.6 mg/dL (0.55-1.3); GLUCOSE,RANDOM 86 mg/dL (74-106); POTASSIUM 3.8 mmol/L (3.5-5.1); SGOT/AST 16 U/L (15-37); SGPT/ALT 33 U/L (13-61); SODIUM 142 mmol/L (136-145); TOT PROT 6.6 g/dl (6.4-8.2)
--- NOTE | 2018-03-19 09:31 | DS ---
Physical Examination Vital Signs: Vital Signs Temperature 98.2 F 03/19/18 06:00 Pulse Rate 83 03/19/18 06:00 Respiratory Rate 20 03/19/18 06:00 Blood Pressure 165/77 03/19/18 06:00 O2 Sat by Pulse Oximetry (%) 98 03/18/18 21:00 Findings/Remarks: feels better tolerated well food, wants to go home noticed 2 boils in the genital area, had them before; advised local mupirocine ( which helped before per pt) called it in to her pharmacy; advised dermatology f/ u outpt; will not use po ATB b/o h/o CDiff pt said she saw GI outpt recently dr Paiz and plan is to take po vanco bid until she finishes chemotx; repeat CDiff here negative; UCx + but no tx needed per ID; currently asymptomatic f/u as advised - d/w pt - will see heme onc, GI, dermatology, vascular sx as outpt Constitutional: Yes: No Distress, Calm Eyes: Yes: Conjunctiva Clear HENT: Yes: Atraumatic Neck: Yes: Supple Cardiovascular: Yes: Regular Rate and Rhythm Respiratory: Yes: CTA Bilaterally Gastrointestinal: Yes: Soft. No: Distention Renal/: No: CVA Tenderness - Left, CVA Tenderness - Right, Hematuria Musculoskeletal: No: Joint Stiffness, Joint Swelling Extremities: No: Cold, Cool, Cyanosis Edema: No Integumentary: No: Rash, Venous Stasis Changes Neurological: Yes: WNL, Alert, Oriented ...Motor Strength: WNL Psychiatric: Yes: WNL, Alert, Oriented. No: Agitated, Suicidal Ideation Labs: CBC, BMP 03/19/18 06:00 03/19/18 06:00 Discharge Summary Reason For Visit: DECREASED URINE OUTPUT, DYSURIA AND NAUSEA Current Active Problems Decreased urine output (Acute) Dysuria (Acute) Nausea (Acute) Procedures: Principal: admitted with failure to thrive dehydration pancytopenia after chemotx for breast CA Other Procedures: seen by heme onc; IVF; zofran prn;. seen by ID no systemic antibiotics advised at this point; Hospital Course: improved with above; DC home and f/u as advised see plan Condition: Stable - Instructions Diet, Activity, Other Instructions: f/u PCP and heme ONC dr Sloan in 1-2 weeks; check labs CBC CMP in 1-2 weeks; f/u dr Leyva / vascular; f/u GI dr Paiz within 1 week; to decide with GI how long po vanco to be continued; dermatology dr Ibarra for skin boil and psoriasis; take meds as prescribed; RTER if worse or recurrent c/o d/w pt Referrals: Josephine Groves [Primary Care Provider] - Melinda Ibarra MD [Staff Physician] - Danielle Paiz DO [Staff Physician] - Nate Leyva MD [Non Staff, Medical] - Charles Sloan MD [Staff Physician] - Disposition: HOME - Home Medications Comprehensive Discharge Medication List: Ambulatory Orders Albuterol Sulfate [Proair Hfa] 2 puff IH PRN PRN 08/04/17 Escitalopram Oxalate [Lexapro -] 20 mg PO Q12H 08/04/17 Esomeprazole Magnesium 40 mg PO DAILY 08/04/17 Lactobacillus Acidophilus [Acidophilus] 1 tab PO DAILY 08/04/17 Metoprolol Tartrate 50 mg PO Q12H 08/04/17 Montelukast Sodium [Singulair] 10 mg PO HS 08/04/17 Ranitidine [Zantac -] 150 mg PO BID 08/04/17 FENTANYL 100mcg PATCH [DURAGESIC 100mcg PATCH -] 2 patch TD Q72H 08/31/17 Simethicone 80 mg PO Q12H PRN 08/31/17 Dicyclomine HCl [Bentyl -] 10 mg PO Q12H PRN 10/18/17 Ondansetron HCl [Zofran] 8 mg PO Q8H PRN 10/18/17 Sucralfate [Carafate -] 1 gm PO Q12H 10/18/17 metFORMIN HCL [Glucophage -] 500 mg PO BIDAC 03/17/18
--- NOTE | 2018-03-19 09:51 | CONSULT ---
- Consultation REQUESTING PROVIDER: CONSULT REQUEST: We have been asked to surgically evaluate this patient for ( venous stasis). PCP:Josephine Groves HISTORY OF PRESENT ILLNESS: 47 y/o Fw/ PMHx stage 2 breast CA (s/p L lumpectomy , on chemotherapy every Monday; last dose last week), b/l LE venous insufficiency, advanced liver cirrhosis, HTN, and DM, UTIs and recurrent CDiff colitis now admitted 03/15 with complaints of dysuria, decreased urine output, nausea and decreased PO food/fluid intake. Vascular consulted for evaluation as pt missed her appt for arterial duplex last week. Pt states she was seen by Dr Leyva in the office a few weeks ago for evaluation for b/l le edema. Pt had a venous duplex a few months back with an incidental finding of arterial stenosis. Reports she was scheduled for an arterial duplex but has missed the appointment on two occasions due to being hospitalized for other issues. At baseline pt lives home with her sister, ambulates minimally due to fatigue. Denies cp/sob, claudication sxs, rest pain, nonhealing ulcers, h/o vascular surgeries. Smokes 6-7 cigarettes per day. PMHx: as above PSHx: portacath insertion Home Medications Medication Instructions Recorded Albuterol Sulfate [Proair Hfa] 2 puff IH PRN PRN 08/04/17 Escitalopram Oxalate [Lexapro -] 20 mg PO Q12H 08/04/17 Esomeprazole Magnesium 40 mg PO DAILY 08/04/17 Lactobacillus Acidophilus 1 tab PO DAILY 08/04/17 [Acidophilus] Metoprolol Tartrate 50 mg PO Q12H 08/04/17 Montelukast Sodium [Singulair] 10 mg PO HS 08/04/17 Ranitidine [Zantac -] 150 mg PO BID 08/04/17 FENTANYL 100mcg PATCH [DURAGESIC 2 patch TD Q72H 08/31/17 100mcg PATCH -] Simethicone 80 mg PO Q12H PRN 08/31/17 Dicyclomine HCl [Bentyl -] 10 mg PO Q12H PRN 10/18/17 Ondansetron HCl [Zofran] 8 mg PO Q8H PRN 10/18/17 Sucralfate [Carafate -] 1 gm PO Q12H 10/18/17 metFORMIN HCL [Glucophage -] 500 mg PO BIDAC 03/17/18 Cholestyramine/Sucrose [Questran 4 gm PO BID packet 03/19/18 Packet -] Mupirocin Cream [Bactroban 2% 1 applic TP TID #1 tube 03/19/18 Cream -] Nicotine Patch [Nicoderm Patch -] 14 mg TD DAILY patch 03/19/18 Spironolactone [Aldactone -] 100 mg PO DAILY tablet 03/19/18 Triamcinolone 0.5% Ointment 1 applic TP BID tube 03/19/18 [Aristocort 0.5% Ointment -] Vancomycin Oral Solution 250 mg PO BID ml 03/19/18 Allergies Allergy/AdvReac Type Severity Reaction Status Date / Time nickel Allergy Intermediate Rash Verified 03/15/18 19:22 titanium Allergy Verified 03/15/18 19:22 REVIEW OF SYSTEMS: CONSTITUTIONAL: Absent: fever, chills CARDIOVASCULAR: Absent: chest pain PHYSICAL EXAM: GENERAL: Awake, alert, and fully oriented, in no acute distress. HEAD: Normal with no signs of trauma. LUNGS: Unlabored on room air LOWER EXTREMITIES: B/L Le's with no evidence of ulcers. 2x2cm area of callous overlying 3rd met head plantar surface over malformed metatarsal (prior injury/ fracture/repair). Cap refill brisk, No peripheral edema. Vascular: 2+ dp b/l, PT not appreciated Vital Signs Temperature 98.2 F 03/19/18 06:00 Pulse Rate 83 03/19/18 06:00 Respiratory Rate 20 03/19/18 06:00 Blood Pressure 165/77 03/19/18 06:00 O2 Sat by Pulse Oximetry (%) 98 03/18/18 21:00 Lab Results WBC 4.4 K/mm3 (4.0-10.0) 03/19/18 06:00 RBC 4.31 M/mm3 (3.60-5.2) 03/19/18 06:00 Hgb 10.8 GM/dL (10.7-15.3) 03/19/18 06:00 Hct 33.4 % (32.4-45.2) 03/19/18 06:00 MCV 77.6 fl (80-96) L 03/19/18 06:00 MCHC 32.2 g/dl (32.0-36.0) 03/19/18 06:00 RDW 18.9 % (11.6-15.6) H 03/19/18 06:00 Plt Count 83 K/MM3 (134-434) L 03/19/18 06:00 Sodium 142 mmol/L (136-145) 03/19/18 06:00 Potassium 3.8 mmol/L (3.5-5.1) 03/19/18 06:00 Chloride 105 mmol/L (98-107) 03/19/18 06:00 Carbon Dioxide 30 mmol/L (21-32) 03/19/18 06:00 Anion Gap 7 MMOL/L (8-16) L 03/19/18 06:00 BUN 11 mg/dL (7-18) 03/19/18 06:00 Creatinine 0.6 mg/dL (0.55-1.3) 03/19/18 06:00 Random Glucose 86 mg/dL (74-106) 03/19/18 06:00 Calcium 9.1 mg/dL (8.5-10.1) 03/19/18 06:00 A/P: 47 y/o Fw/ PMHx stage 2 breast CA (s/p L lumpectomy, on chemotherapy every Monday; last dose last week), b/l LE venous insufficiency, advanced liver cirrhosis, HTN, and DM, UTIs and recurrent CDiff colitis now admitted with complaints of dysuria, decreased urine output, nausea and decreased PO food/fluid intake. Vascular consulted for evaluation as pt missed her appt for arterial duplex last week. No ulcers, no rest pain -Recommend outpt follow up/rescheduling of arterial duplex d/w attending Dr Leyva
[2018-03-19] MEDS: ESCITALOPRAM OXALATE 20 MG TABLET (FP) PO SCH (10:26)
[2018-03-19] MEDS: RANITIDINE HCL 150 MG TABLET (FP) PO SCH (10:26)
[2018-03-19] MEDS: METOPROLOL TARTRATE 50 MG TABLET (FP) PO SCH (10:26)
[2018-03-19] MEDS: PANTOPRAZOLE 40 MG TABLET (FP) PO SCH (10:26)
[2018-03-19] MEDS: LACTOBACILLUS ACIDOPHILUS 1 TABLET PO SCH (10:26)
[2018-03-19] MEDS: CHOLESTYRAMINE/SUCROSE 4 GM PACKET PO SCH (10:27)
[2018-03-19] MEDS: SPIRONOLACTONE 25 MG TABLET (FP) PO SCH (10:28)
[2018-03-19] MEDS: NICOTINE 14 MG/24 HOURS TOPICAL PATCH TD SCH (10:28)
[2018-03-19] MEDS: TRIAMCINOLONE ACET 0.5% OINT 15 GM TUBE TP SCH (10:29)
[2018-03-19] MEDS: VANCOMYCIN 250 MG/5 ML ORAL SOLUTION PO SCH (10:31)
[2018-03-19 11:07] VITALS: BP 148/87; PULSE 84; TEMP 98
--- NOTE | 2018-03-21 18:22 | PN ---
Progress Note (short form) - Note Progress Note: called patient discussed the need to get PET-CT and urged khang to keep the appointment she denies any other complaints
== END 2018-03-19 12:21 | disposition home or self-care (01) | DRG 640 ==
LOC: JER 19:00 → JERBED 21:23 → J8W 03-16 21:27
PROVIDERS: ADMIT Internal Medicine; ATTEND Internal Medicine
DX: R62.7 Adult failure to thrive (principal); D61.810 Antineoplastic chemotherapy induced pancytopenia; K74.60 Unspecified cirrhosis of liver; I10 Essential (primary) hypertension; J44.9 Chronic obstructive pulmonary disease, unspecified; E11.9 Type 2 diabetes mellitus without complications; C50.912 Malignant neoplasm of unspecified site of left female breast; F17.210 Nicotine dependence, cigarettes, uncomplicated; I87.2 Venous insufficiency (chronic) (peripheral); T45.1X5A Adverse effect of antineoplastic and immunosuppressive drugs, initial encounter; R34 Anuria and oliguria; Z79.84 Long term (current) use of oral hypoglycemic drugs; Z87.440 Personal history of urinary (tract) infections; R30.0 Dysuria
CPT/HCPCS: 36415; 71045-TC-FY; 80053; 81003; 82150; 82607; 82962; 83690; 83735; 84443; 85025; 87040; 87086; 87186; 87324; 87449; 93005; 93010; 99285-25; J7030

== ENCOUNTER 2018-03-29 05:42 | Day surgery (SDC) | payer OTHER ==
[2018-03-29] MEDS ORDERED: SODIUM CHLORIDE 250 ML IV ONE (09:30)
[2018-03-29] MEDS ORDERED: DEXAMETHASONE SODIUM PHOSPHATE 10 MG in SODIUM CHLORIDE 50 ML IVPB ONE (10:00)
[2018-03-29] MEDS ORDERED: PALONOSETRON HCL 0.25 MG/5 ML VIAL IVPUSH ONE (10:00)
[2018-03-29 10:18] LABS: BASO % 0.8 % (0-2.0); EOS % 2.2 % (0-4.5); HEMATOCRIT 34.5 % (32.4-45.2); HEMOGLOBIN 11.7 GM/dL (10.7-15.3); LYMPH % 22.6 % (8-40); MCH 26.3 pg (25.7-33.7); MCHC 33.9 g/dl (32.0-36.0); MEAN CELL VOLUME 77.6 fl (80-96); MEAN PLT VOLUME 10.1 fl (7.5-11.1); MONO % 10.3 % (3.8-10.2); NEUT % 64.1 % (42.8-82.8); PLATELET COUNT 107 K/MM3 (134-434); RBC 4.45 M/mm3 (3.60-5.2); WHITE BLOOD COUNT 6.3 K/mm3 (4.0-10.0)
[2018-03-29] MEDS ORDERED: SODIUM CHLORIDE IVPB ONE (10:30)
[2018-03-29] MEDS ORDERED: CYCLOPHOSPHAMIDE IVPB ONE (10:30)
[2018-03-29 10:55] LABS: ALBUMIN 3.9 g/dl (3.4-5.0); ALK PHOS 134 U/L (45-117); ANION GAP 7 MMOL/L (8-16); BILIRUBIN,TOTAL 0.7 mg/dL (0.2-1); BLOOD UREA NITROGEN 16 mg/dL (7-18); CALCIUM 9.2 mg/dL (8.5-10.1); CHLORIDE 105 mmol/L (98-107); CO2 28 mmol/L (21-32); CREATININE 0.6 mg/dL (0.55-1.3); GLUCOSE,RANDOM 124 mg/dL (74-106); SGOT/AST 40 U/L (15-37); SGPT/ALT 50 U/L (13-61); SODIUM 140 mmol/L (136-145); TOT PROT 6.7 g/dl (6.4-8.2)
[2018-03-29] MEDS ORDERED: FLUOROURACIL 2,500 MG/50 ML VIAL IVPUSH ONE (11:00)
[2018-03-29 11:08] LABS: ALBUMIN 3.9 g/dl (3.4-5.0); BILIRUBIN,DIRECT 0.2 mg/dL (0.0-0.2); BILIRUBIN,TOTAL 0.8 mg/dL (0.2-1); MAGNESIUM 1.8 mg/dL (1.8-2.4); TOT PROT 6.6 g/dl (6.4-8.2)
[2018-03-29] MEDS ORDERED: SODIUM CHLORIDE 250 ML IV STA (13:06)
[2018-03-29] MEDS ORDERED: FOSAPREPITANT DIMEGLUMINE 150 MG in SODIUM CHLORIDE 145 ML IVPB ONE (14:00)
[2018-03-29 17:39] VITALS: BP 102/61; PULSE 71; TEMP 98.9
== END 2018-03-29 18:00 | disposition home or self-care (01) ==
LOC: JONCCHEMO 05:42 → J7W 12:26 → JONCCHEMO 18:00
PROVIDERS: ATTEND Internal Medicine Hematology & Oncology
DX: Z51.11 Encounter for antineoplastic chemotherapy (principal); C50.112 Malignant neoplasm of central portion of left female breast
CPT/HCPCS: 36415; 80053; 80076; 83735; 85025; 96361; 96367; 96375; 96409; 96411; 96413; J1453; J2469; J9070

== ENCOUNTER → 2018-04-19 | Day surgery (SDC) | payer OTHER | LOC: JONCCHEMO 07:30 ==

== ENCOUNTER 2018-04-26 05:23 | Day surgery (SDC) | payer OTHER ==
[2018-04-26] MEDS ORDERED: DEXAMETHASONE SODIUM PHOSPHATE 10 MG in SODIUM CHLORIDE 50 ML IVPB ONE (08:00)
[2018-04-26] MEDS ORDERED: PALONOSETRON HCL 0.25 MG/5 ML VIAL IVPUSH ONE (08:00)
[2018-04-26] MEDS ORDERED: SODIUM CHLORIDE IVPB ONE (08:30)
[2018-04-26] MEDS ORDERED: CYCLOPHOSPHAMIDE IVPB ONE (08:30)
[2018-04-26] MEDS ORDERED: FLUOROURACIL 500 MG/10 ML VIAL IVPUSH ONE (09:00)
[2018-04-26] MEDS ORDERED: SODIUM CHLORIDE 250 ML IV ONE ×2 (09:15→11:30)
[2018-04-26 10:47] LABS: EOS % 2.9 % (0-4.5); HEMATOCRIT 36.1 % (32.4-45.2); HEMOGLOBIN 11.5 GM/dL (10.7-15.3); LYMPH % 28.6 % (8-40); MCH 25.8 pg (25.7-33.7); MCHC 31.8 g/dl (32.0-36.0); MEAN PLT VOLUME 9.5 fl (7.5-11.1); MONO % 9.6 % (3.8-10.2); NEUT % 57.9 % (42.8-82.8); PLATELET COUNT 87 K/MM3 (134-434); RBC 4.46 M/mm3 (3.60-5.2); RDW 20.7 % (11.6-15.6); WHITE BLOOD COUNT 5.3 K/mm3 (4.0-10.0)
[2018-04-26 11:20] LABS: ALBUMIN 3.8 g/dl (3.4-5.0); ALK PHOS 124 U/L (45-117); ANION GAP 7 MMOL/L (8-16); BILIRUBIN,DIRECT 0.2 mg/dL (0.0-0.2); BILIRUBIN,TOTAL 0.5 mg/dL (0.2-1); BLOOD UREA NITROGEN 16 mg/dL (7-18); CALCIUM 9.1 mg/dL (8.5-10.1); CHLORIDE 105 mmol/L (98-107); CO2 29 mmol/L (21-32); CREATININE 0.6 mg/dL (0.55-1.3); GLUCOSE,RANDOM 95 mg/dL (74-106); MAGNESIUM 1.9 mg/dL (1.8-2.4); POTASSIUM 4.4 mmol/L (3.5-5.1); SGOT/AST 22 U/L (15-37); SGPT/ALT 31 U/L (13-61); SODIUM 141 mmol/L (136-145); TOT PROT 6.6 g/dl (6.4-8.2)
[2018-04-26] MEDS ORDERED: FOSAPREPITANT DIMEGLUMINE 150 MG in SODIUM CHLORIDE 145 ML IVPB ONE (11:45)
[2018-04-26 12:30] LABS: ANISOCYTOSIS 1+; OVALOCYTE 1+; PLATELET ESTIMATE DECREASED
[2018-04-26 12:35] LABS: MACROCYTOSIS 1+
[2018-04-26 17:06] VITALS: TEMP 97.9
[2018-04-26] MEDS ORDERED: PORTA CATH FLUSH 10 ML IVPUSH ONE (17:06)
[2018-04-26 17:09] VITALS: BP 120/71; PULSE 70
== END 2018-04-26 15:00 | disposition home or self-care (01) ==
LOC: JONCCHEMO 05:23 → J7W 11:21 → JONCCHEMO 15:00
PROVIDERS: ATTEND Internal Medicine Hematology & Oncology
DX: Z51.11 Encounter for antineoplastic chemotherapy (principal); C50.112 Malignant neoplasm of central portion of left female breast
CPT/HCPCS: 36415; 80048; 80076; 83735; 85025; 96361; 96367; 96375; 96409; 96411; 96413; J1453; J2469; J9070; J9190

== ENCOUNTER → 2018-05-17 | Day surgery (SDC) | payer OTHER | LOC: JONCCHEMO 07:23 ==

== ENCOUNTER 2018-07-05 06:43 | Day surgery (SDC) | payer OTHER ==
[2018-07-05] MEDS ORDERED: SODIUM CHLORIDE 250 ML IV ONE ×2 (09:30→11:00)
[2018-07-05] MEDS ORDERED: PALONOSETRON HCL 0.25 MG/5 ML VIAL IVPUSH ONE (10:00)
[2018-07-05] MEDS ORDERED: DEXAMETHASONE INJECTION 10 MG in SODIUM CHLORIDE 50 ML IVPB ONE (10:00)
[2018-07-05] MEDS ORDERED: CYCLOPHOSPHAMIDE IVPB ONE (10:30)
[2018-07-05] MEDS ORDERED: SODIUM CHLORIDE IVPB ONE (10:30)
[2018-07-05] MEDS ORDERED: FLUOROURACIL 2,500 MG/50 ML VIAL IVPUSH ONE ×2 (11:00→14:00)
[2018-07-05 12:01] LABS: BASO % 0.8 % (0-2.0); EOS % 2.4 % (0-4.5); HEMOGLOBIN 12.7 GM/dL (10.7-15.3); LYMPH % 28.6 % (8-40); MCH 30.1 pg (25.7-33.7); MCHC 35.2 g/dl (32.0-36.0); MEAN CELL VOLUME 85.7 fl (80-96); MEAN PLT VOLUME 8.8 fl (7.5-11.1); MONO % 10.9 % (3.8-10.2); NEUT % 57.3 % (42.8-82.8); PLATELET COUNT 91 K/MM3 (134-434); RDW 17.8 % (11.6-15.6); WHITE BLOOD COUNT 5.8 K/mm3 (4.0-10.0)
[2018-07-05 12:35] LABS: ALBUMIN 3.5 g/dl (3.4-5.0); BILIRUBIN,DIRECT 0.2 mg/dL (0.0-0.2); BILIRUBIN,TOTAL 0.5 mg/dL (0.2-1); MAGNESIUM 1.7 mg/dL (1.8-2.4); TOT PROT 6.4 g/dl (6.4-8.2)
[2018-07-05 13:14] LABS: ALBUMIN 3.5 g/dl (3.4-5.0); ALK PHOS 132 U/L (45-117); ANION GAP 8 MMOL/L (8-16); BILIRUBIN,TOTAL 0.5 mg/dL (0.2-1); BLOOD UREA NITROGEN 10 mg/dL (7-18); CALCIUM 8.9 mg/dL (8.5-10.1); CHLORIDE 106 mmol/L (98-107); CO2 27 mmol/L (21-32); CREATININE 0.7 mg/dL (0.55-1.3); GLUCOSE,RANDOM 82 mg/dL (74-106); POTASSIUM 4.7 mmol/L (3.5-5.1); SGOT/AST 41 U/L (15-37); SGPT/ALT 37 U/L (13-61); SODIUM 141 mmol/L (136-145); TOT PROT 6.5 g/dl (6.4-8.2)
[2018-07-05] MEDS ORDERED: MAGNESIUM SULF 50% (8.12 MEQ/2 ML-1 GM VIAL) IVPB ONE (13:28)
[2018-07-05] MEDS ORDERED: SODIUM CHLORIDE 250 ML IV STA (13:28)
[2018-07-05 16:53] VITALS: BP 102/59; PULSE 70; TEMP 97.9
--- NOTE | 2018-07-12 19:37 | PN ---
Progress Note (short form) - Note Progress Note: called patient. Feels ok. No c/o reminded her to f/u as she missed her appointment
== END 2018-07-05 16:57 | disposition home or self-care (01) ==
LOC: JONCCHEMO 06:43 → J7W 13:43 → JONCCHEMO 16:57
PROVIDERS: ATTEND Internal Medicine Hematology & Oncology
DX: Z51.11 Encounter for antineoplastic chemotherapy (principal); C50.112 Malignant neoplasm of central portion of left female breast
CPT/HCPCS: 36415; 80053; 80076; 83735; 85025; 96361; 96367; 96375; 96409; 96411; 96413; 96417; J1100; J2469; J9070

== ENCOUNTER → 2018-07-27 | Day surgery (SDC) | payer OTHER | LOC: JONCCHEMO 07:09 ==

== ENCOUNTER 2019-03-13 11:23 | Day surgery (SDC) | payer OTHER ==
[2019-03-13] MEDS ORDERED: LIDOCAINE HCL/PF 2% SDV 5ML VIAL ONE ×2 (11:44→13:49)
[2019-03-13] MEDS ORDERED: PROPOFOL 20 ML ONE (13:49)
[2019-03-13] MEDS ORDERED: GLYCOPYRROLATE 0.2 MG/1 ML VIAL ONE (13:54)
[2019-03-13] MEDS ORDERED: EPINEPHrine 1:10,000 (P-F SYR) 1 MG/10 ML DISP.SYRIN ONE (14:05)
[2019-03-13] MEDS ORDERED: ONDANSETRON 4 MG/2 ML VIAL ONE (14:29)
[2019-03-13] MEDS ORDERED: ONDANSETRON 4 MG/2 ML VIAL IVPUSH ONE (14:30)
[2019-03-13] MEDS ORDERED: PANTOPRAZOLE SODIUM 40 MG/100 ML PRE-DOCKED IVPB ONE (14:40)
[2019-03-13 14:45] VITALS: TEMP 97.9
[2019-03-13] MEDS ORDERED: PANTOPRAZOLE SODIUM 40 MG in SODIUM CHLORIDE 100 ML IVPB ONE (15:00)
[2019-03-13 15:41] VITALS: BP 134/75; PULSE 74
[2019-03-13] MEDS ORDERED: PANTOPRAZOLE SOD 40 MG SUSPENSION PACKET PO SCH (22:00)
--- NOTE | 2019-03-18 16:46 | PATH ---
Surgical Pathology Report Patient Name: TONI GONZALEZ [facility]. Rec. #: [id number] /Age/Gender: 1970 (Age: 48) / F Account: [id number] Location: [facility] Taken: 03/13/2019 Received: 03/13/2019 Reported: 03/18/2019 Physicians: Danielle Paiz M.D. 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 Electronically Signed Danielle Serrano M.D. Gross Description Received in formalin, labeled "biopsy second portion of duodenum" is a mcdermott, irregular portion of soft tissue measuring 0.3 cm. in greatest dimension. The specimen is submitted in toto in one cassette. 03/15/2019 [facility]03/15/2019
== END 2019-03-13 15:50 | disposition home or self-care (01) ==
LOC: FASU-ENDO 11:23
PROVIDERS: ATTEND Internal Medicine Gastroenterology
PROC: 0W3P8ZZ Control Bleeding in Gastrointestinal Tract, Via Natural or Artificial Opening Endoscopic (ICD-10-PCS; 2019-03-13)
PROC: 0DB98ZX Excision of Duodenum, Via Natural or Artificial Opening Endoscopic, Diagnostic (ICD-10-PCS; principal; 2019-03-13 13:56)
DX: K29.70 Gastritis, unspecified, without bleeding (principal); K29.80 Duodenitis without bleeding
CPT/HCPCS: 82962; 88305-TC

== ENCOUNTER 2019-03-20 11:08 | Day surgery (SDC) | payer OTHER ==
[2019-03-20 14:27] VITALS: BP 130/68; PULSE 67; TEMP 98
== END 2019-03-20 14:28 | disposition home or self-care (01) ==
LOC: FASU-ENDO 11:08
PROVIDERS: ATTEND Internal Medicine Gastroenterology
PROC: 0DJD8ZZ Inspection of Lower Intestinal Tract, Via Natural or Artificial Opening Endoscopic (ICD-10-PCS; principal; 2019-03-20 12:41)
DX: Z12.11 Encounter for screening for malignant neoplasm of colon (principal); K64.8 Other hemorrhoids
CPT/HCPCS: 82962

== ENCOUNTER 2020-07-06 05:46 | Day surgery (SDC) | payer OTHER ==
[2020-07-03 16:45] VITALS: BMI 36.3
[2020-07-06 17:28] VITALS: BP 147/80; PULSE 70; TEMP 97.9
== END 2020-07-06 17:41 | disposition home or self-care (01) ==
LOC: JRADIR 05:46
PROVIDERS: ATTEND Internal Medicine Hematology & Oncology
PROC: 0BBD3ZX Excision of Right Middle Lung Lobe, Percutaneous Approach, Diagnostic (ICD-10-PCS; principal; 2020-07-06)
DX: D14.31 Benign neoplasm of right bronchus and lung (principal); C50.919 Malignant neoplasm of unspecified site of unspecified female breast
CPT/HCPCS: 32408; 71046-TC-FY; 77012-TC; 81025; 88305-TC

== ENCOUNTER 2020-07-16 04:29 | Inpatient (IN) | payer OTHER ==
[2020-07-16] MEDS: SODIUM CHLORIDE 500 ML IV SCH (12:00)
[2020-07-16] MEDS ORDERED: ACETAMINOPHEN 325 MG TABLET (FP) PO PRN (17:45)
[2020-07-16 19:13] LABS: BASO % 0.5 % (0-2.0); EOS % 2.3 % (0-4.5); HEMATOCRIT 37.4 % (32.4-45.2); HEMOGLOBIN 12.3 GM/dL (10.7-15.3); LYMPH % 35.4 % (8-40); MEAN CELL VOLUME 81.7 fl (80-96); MEAN PLT VOLUME 8.6 fl (7.5-11.1); MONO % 7.5 % (3.8-10.2); NEUT % 54.3 % (42.8-82.8); PLATELET COUNT 107 K/MM3 (134-434); RBC 4.58 M/mm3 (3.60-5.2); RDW 16.8 % (11.6-15.6); WHITE BLOOD COUNT 4.4 K/mm3 (4.0-10.0)
[2020-07-16] MEDS: INSULIN SLIDING SCALE (NOVOLOG) 1 VIAL SQ SCH (22:38)
[2020-07-16 23:07] VITALS: BMI 36.4
[2020-07-16] MEDS ORDERED: HYDROmorphone HCL 2 MG TABLET PO ONE (23:13)
[2020-07-16] MEDS ORDERED: MELATONIN 5 MG TABLETS PO ONE (23:29)
[2020-07-17 04:03] LABS: URINE APPEARANCE CLEAR; URINE BILIRUBIN NEGATIVE (NEGATIVE); URINE COLOR YELLOW; URINE GLUCOSE (UA) NEGATIVE (NEGATIVE); URINE KETONE TRACE (NEGATIVE); URINE LEUK ESTERASE NEGATIVE (NEGATIVE); URINE NITRITE NEGATIVE (NEGATIVE); URINE PROTEIN NEGATIVE (NEGATIVE)
[2020-07-17] MEDS ORDERED: HYDROmorphone HCl 2 MG/ML VIAL IVPUSH ONE (05:20)
[2020-07-17] MEDS: INSULIN SLIDING SCALE (NOVOLOG) 1 VIAL SQ SCH ×2 (06:24→11:59)
[2020-07-17 09:25] LABS: BASO % 0.5 % (0-2.0); EOS % 1.4 % (0-4.5); HEMATOCRIT 35.2 % (32.4-45.2); HEMOGLOBIN 11.8 GM/dL (10.7-15.3); LYMPH % 27.8 % (8-40); MCH 27.2 pg (25.7-33.7); MCHC 33.6 g/dl (32.0-36.0); MEAN CELL VOLUME 80.9 fl (80-96); MEAN PLT VOLUME 8.6 fl (7.5-11.1); MONO % 7.2 % (3.8-10.2); NEUT % 63.1 % (42.8-82.8); PLATELET COUNT 100 K/MM3 (134-434); RBC 4.35 M/mm3 (3.60-5.2); RDW 16.6 % (11.6-15.6); WHITE BLOOD COUNT 4.4 K/mm3 (4.0-10.0)
[2020-07-17 09:45] LABS: POTASSIUM 4.4 mmol/L (3.5-5.1)
[2020-07-17] MEDS ORDERED: FENTANYL PATCH WASTE MC PRN (09:47)
[2020-07-17 09:55] LABS: CALCIUM 8.6 mg/dL (8.5-10.1)
[2020-07-17 09:56] LABS: ALBUMIN 3.2 g/dl (3.4-5.0)
[2020-07-17 09:59] LABS: CREATININE 0.6 mg/dL (0.55-1.3); PHOSPHOROUS 3.7 mg/dL (2.5-4.9)
[2020-07-17 10:00] LABS: BILIRUBIN,TOTAL 0.6 mg/dL (0.2-1); TOT PROT 6.1 g/dl (6.4-8.2)
[2020-07-17] MEDS ORDERED: fentaNYL 100mcg/hr PATCH.TD72 TD SCH (10:00)
[2020-07-17] MEDS ORDERED: CYCLOBENZAPRINE HCL 10 MG TABLET (FP) PO SCH (10:00)
[2020-07-17] MEDS ORDERED: ALBUTEROL SO4 HFA INHALER IH PRN (10:16)
[2020-07-17] MEDS ORDERED: HYDROmorphone HCL 2 MG TABLET PO PRN ×2 (10:17→12:38)
[2020-07-17] MEDS ORDERED: PATIENT'S OWN MEDICATION (NON-FORMULARY) (Tiotropium Bromide [Spiriva] 18 MCG Cap.W.Dev) PO SCH (10:30)
[2020-07-17] MEDS ORDERED: BUDESONIDE/FORMETEROL FUMARATE 160/4.5 mcg INHALER IH SCH (10:30)
[2020-07-17] MEDS ORDERED: TIOTROPIUM BROMIDE 2.5 MCG (SPIRIVA) RESPIMAT INHALER IH SCH (10:30)
[2020-07-17] MEDS ORDERED: PT OWN MED DRAWER 7, Y5N ONE (11:47)
[2020-07-17] MEDS ORDERED: CYCLOBENZAPRINE HCL 10 MG TABLET (FP) PO PRN (12:45)
[2020-07-17] MEDS: SODIUM CHLORIDE 500 ML IV SCH (13:41)
[2020-07-17 15:49] VITALS: BP 130/72; PULSE 72; TEMP 97.6
[2020-07-17] MEDS ORDERED: MONTELUKAST NA 10 MG TABLET PO SCH (22:00)
[2020-07-17] MEDS ORDERED: FAMOTIDINE 40 MG TABLET PO SCH (22:00)
[2020-07-17] MEDS ORDERED: ESCITALOPRAM OXALATE 20 MG TABLET PO SCH (22:00)
== END 2020-07-17 15:20 | disposition home or self-care (01) | DRG 200 ==
LOC: JRADIR 04:29 → JASUSAT 04:29 → J2C 17:45 → J8W 22:11
PROVIDERS: ADMIT Internal Medicine Hematology & Oncology; ATTEND Internal Medicine
PROC: 0BJK3ZZ Inspection of Right Lung, Percutaneous Approach (ICD-10-PCS; principal; 2020-07-16)
DX: J95.811 Postprocedural pneumothorax (principal); C78.01 Secondary malignant neoplasm of right lung; C78.7 Secondary malignant neoplasm of liver and intrahepatic bile duct; Y83.9 Surgical procedure, unspecified as the cause of abnormal reaction of the patient, or of later complication, without mention of misadventure at the time of the procedure; G89.29 Other chronic pain; I10 Essential (primary) hypertension; E11.9 Type 2 diabetes mellitus without complications; K74.60 Unspecified cirrhosis of liver; F17.210 Nicotine dependence, cigarettes, uncomplicated; C50.919 Malignant neoplasm of unspecified site of unspecified female breast; E66.9 Obesity, unspecified; Z68.36 Body mass index [BMI] 36.0-36.9, adult
CPT/HCPCS: 32408; 36415; 71045-TC-FY; 71046-TC-FY; 80053; 81003; 82962; 83735; 84100; 84484; 85025; 97116-GP; 97161-GP

== ENCOUNTER → 2020-09-01 | Day surgery (SDC) | payer OTHER | END | disposition home or self-care (01) | LOC: JRADIR 12:40 | PROVIDERS: ATTEND Internal Medicine Hematology & Oncology | PROC: 4A043B0 Measurement of Venous Pressure, Central, Percutaneous Approach (ICD-10-PCS; principal; 2020-09-01) | DX: Z45.2 Encounter for adjustment and management of vascular access device (principal); C50.919 Malignant neoplasm of unspecified site of unspecified female breast | CPT/HCPCS: 36598 ==

== ENCOUNTER 2020-09-09 16:46 | Day surgery (SDC) | payer OTHER ==
[2020-09-09 14:31] VITALS: PULSE 67; TEMP 98.6
[2020-09-09 15:10] VITALS: BP 129/60
[~2020-09-09 16:46] MED LIST changes: -CYCLOPHOSPHAMIDE IVPB ONE; +DEXAMETHASONE SODIUM PHOSPHATE IVPB ONE; +ONDANSETRON INJECTION 12 MG in SODIUM CHLORIDE 50 ML IVPB ONE; +ONDANSETRON IVPB ONE; +PACLITAXEL PROTEIN BOUND IVPB ONE; +[UNRECOGNIZED DRUG - OTHER] IVPB ONE
== END 2020-09-09 16:50 | disposition home or self-care (01) ==
LOC: JONCCHEMO 16:46
PROVIDERS: ATTEND Internal Medicine Hematology & Oncology
DX: Z51.11 Encounter for antineoplastic chemotherapy (principal); C50.919 Malignant neoplasm of unspecified site of unspecified female breast; C34.90 Malignant neoplasm of unspecified part of unspecified bronchus or lung
CPT/HCPCS: 96367; 96413; J9264

== ENCOUNTER 2020-09-18 07:15 | Day surgery (SDC) | payer OTHER ==
[2020-09-18] MEDS ORDERED: ONDANSETRON INJECTION 8 MG in SODIUM CHLORIDE 50 ML IVPB ONE (10:00)
[2020-09-18] MEDS ORDERED: SODIUM CHLORIDE IVPB ONE (10:30)
[2020-09-18] MEDS ORDERED: PACLITAXEL PROTEIN BOUND IVPB ONE (10:30)
[2020-09-18 10:54] LABS: EOS % 1.7 % (0-4.5); HEMATOCRIT 35.9 % (32.4-45.2); HEMOGLOBIN 11.9 GM/dL (10.7-15.3); LYMPH % 32.5 % (8-40); MCH 27.7 pg (25.7-33.7); MCHC 33.1 g/dl (32.0-36.0); MEAN CELL VOLUME 83.6 fl (80-96); MEAN PLT VOLUME 8.8 fl (7.5-11.1); MONO % 8.7 % (3.8-10.2); NEUT % 56.1 % (42.8-82.8); PLATELET COUNT 144 K/MM3 (134-434); RBC 4.29 M/mm3 (3.60-5.2); RDW 16.7 % (11.6-15.6)
[2020-09-18] MEDS ORDERED: PEMBROLIZUMAB 200 MG in SODIUM CHLORIDE 50 ML IV ONE (11:00)
[2020-09-18 11:12] LABS: ALBUMIN 3.6 g/dl (3.4-5.0); BLOOD UREA NITROGEN 10.2 mg/dL (7-18); CALCIUM 9.5 mg/dL (8.5-10.1)
[2020-09-18 11:15] LABS: CREATININE 0.8 mg/dL (0.55-1.3)
[2020-09-18 11:17] LABS: BILIRUBIN,TOTAL 0.8 mg/dL (0.2-1); TOT PROT 6.8 g/dl (6.4-8.2)
[2020-09-18 16:32] VITALS: PULSE 68; TEMP 97.7
[2020-09-18 16:35] VITALS: BP 98/60
== END 2020-09-18 14:15 | disposition home or self-care (01) ==
LOC: JONCCHEMO 07:15
PROVIDERS: ATTEND Internal Medicine Hematology & Oncology
DX: Z51.11 Encounter for antineoplastic chemotherapy (principal); C50.919 Malignant neoplasm of unspecified site of unspecified female breast; C34.90 Malignant neoplasm of unspecified part of unspecified bronchus or lung
CPT/HCPCS: 36415; 80053; 84439; 84443; 85025; 96375; 96413; 96417; J9264; J9271

== ENCOUNTER 2020-09-24 07:45 | Day surgery (SDC) | payer OTHER ==
[2020-09-24] MEDS ORDERED: ONDANSETRON INJECTION 8 MG in SODIUM CHLORIDE 50 ML IVPB ONE (10:00)
[2020-09-24] MEDS ORDERED: PACLITAXEL PROTEIN BOUND IVPB ONE (10:00)
[2020-09-24] MEDS ORDERED: SODIUM CHLORIDE IVPB ONE (10:00)
[2020-09-24 10:28] LABS: EOS % 1.3 % (0-4.5); HEMATOCRIT 32.3 % (32.4-45.2); HEMOGLOBIN 10.9 GM/dL (10.7-15.3); LYMPH % 37.4 % (8-40); MCH 27.8 pg (25.7-33.7); MCHC 33.9 g/dl (32.0-36.0); MEAN CELL VOLUME 82.1 fl (80-96); MEAN PLT VOLUME 8.9 fl (7.5-11.1); MONO % 7.9 % (3.8-10.2); NEUT % 52.4 % (42.8-82.8); PLATELET COUNT 100 K/MM3 (134-434); RBC 3.93 M/mm3 (3.60-5.2); RDW 16.3 % (11.6-15.6); WHITE BLOOD COUNT 3.2 K/mm3 (4.0-10.0)
[2020-09-24 11:52] LABS: ALBUMIN 3.5 g/dl (3.4-5.0); BILIRUBIN,TOTAL 0.8 mg/dL (0.2-1); BLOOD UREA NITROGEN 13.2 mg/dL (7-18); CALCIUM 8.7 mg/dL (8.5-10.1); CREATININE 0.7 mg/dL (0.55-1.3); TOT PROT 6.4 g/dl (6.4-8.2)
[2020-09-24 16:18] VITALS: TEMP 98.2
[2020-09-24 16:19] VITALS: BP 107/70; PULSE 69
== END 2020-09-24 15:05 | disposition home or self-care (01) ==
LOC: JONCCHEMO 07:45
PROVIDERS: ATTEND Internal Medicine Hematology & Oncology
DX: Z51.11 Encounter for antineoplastic chemotherapy (principal); C50.919 Malignant neoplasm of unspecified site of unspecified female breast; C34.90 Malignant neoplasm of unspecified part of unspecified bronchus or lung
CPT/HCPCS: 36415; 80053; 84439; 84443; 85025; 96375; 96413; J2405; J9264

== ENCOUNTER 2020-10-01 07:24 | Day surgery (SDC) | payer OTHER ==
[2020-10-01] MEDS ORDERED: ONDANSETRON INJECTION 8 MG in SODIUM CHLORIDE 50 ML IVPB ONE (09:30)
[2020-10-01] MEDS ORDERED: PACLITAXEL PROTEIN BOUND IVPB ONE (10:00)
[2020-10-01] MEDS ORDERED: SODIUM CHLORIDE IVPB ONE (10:00)
[2020-10-01 10:26] LABS: BASO % 1.3 % (0-2.0); HEMOGLOBIN 12.1 GM/dL (10.7-15.3); LYMPH % 38.2 % (8-40); MCH 27.4 pg (25.7-33.7); MCHC 32.7 g/dl (32.0-36.0); MEAN CELL VOLUME 83.9 fl (80-96); MEAN PLT VOLUME 8.9 fl (7.5-11.1); MONO % 7.9 % (3.8-10.2); NEUT % 51.6 % (42.8-82.8); PLATELET COUNT 139 10^3/uL (134-434); RBC 4.41 M/mm3 (3.60-5.2); RDW 16.8 % (11.6-15.6); WHITE BLOOD COUNT 3.5 K/mm3 (4.0-10.0)
[2020-10-01 10:47] LABS: ALBUMIN 3.8 g/dl (3.4-5.0); BLOOD UREA NITROGEN 10.3 mg/dL (7-18); CALCIUM 9.4 mg/dL (8.5-10.1)
[2020-10-01 10:50] LABS: CREATININE 0.7 mg/dL (0.55-1.3)
[2020-10-01 10:52] LABS: BILIRUBIN,TOTAL 0.8 mg/dL (0.2-1); TOT PROT 6.8 g/dl (6.4-8.2)
[2020-10-01 16:58] VITALS: TEMP 98.1
[2020-10-01 17:02] VITALS: BP 126/61; PULSE 68
== END 2020-10-01 12:30 | disposition home or self-care (01) ==
LOC: JONCCHEMO 07:24
PROVIDERS: ATTEND Internal Medicine Hematology & Oncology
DX: Z51.11 Encounter for antineoplastic chemotherapy (principal); C50.919 Malignant neoplasm of unspecified site of unspecified female breast; C34.90 Malignant neoplasm of unspecified part of unspecified bronchus or lung
CPT/HCPCS: 36415; 80053; 85025; 96367; 96413; J2405; J9264

== ENCOUNTER 2020-10-08 09:00 | Emergency (ER) | payer OTHER ==
[2020-10-08 09:18] VITALS: BP 130/54; PULSE 73; TEMP 98.1; BMI 34.1
[2020-10-08] MEDS ORDERED: TETRACAINE 0.5% OPHTH SOLN 2 ML BOTTLE OS ONE (09:56)
[2020-10-08] MEDS ORDERED: FLUORESCEIN NA 1 EA STRIP OS ONE (09:57)
[2020-10-08] MEDS ORDERED: TETRACAINE 0.5% OPHTH SOLN 2 ML BOTTLE ONE (10:03)
[2020-10-08] MEDS ORDERED: FLUORESCEIN NA 1 EA STRIP ONE (10:03)
== END 2020-10-08 11:01 | disposition home or self-care (01) ==
LOC: JERFT 09:00
PROC: 3E033NZ Introduction of Analgesics, Hypnotics, Sedatives into Peripheral Vein, Percutaneous Approach (ICD-10-PCS; principal; 2020-10-08)
DX: S05.02XA Injury of conjunctiva and corneal abrasion without foreign body, left eye, initial encounter (principal)
CPT/HCPCS: 99284-25

== ENCOUNTER → 2020-10-08 | Day surgery (SDC) | payer OTHER ==
[~2020-10-08] MED LIST changes: -DEXAMETHASONE SODIUM PHOSPHATE IVPB ONE; -ONDANSETRON INJECTION 12 MG in SODIUM CHLORIDE 50 ML IVPB ONE; +ONDANSETRON INJECTION 8 MG in SODIUM CHLORIDE 50 ML IVPB ONE; -ONDANSETRON IVPB ONE; +PEMBROLIZUMAB 200 MG in SODIUM CHLORIDE 50 ML IV ONE; +PEMBROLIZUMAB IV ONE; +SODIUM CHLORIDE IV ONE; -[UNRECOGNIZED DRUG - OTHER] IVPB ONE
[2020-10-08 11:37] LABS: BASO % 1.2 % (0-2.0); EOS % 0.8 % (0-4.5); HEMATOCRIT 34.2 % (32.4-45.2); HEMOGLOBIN 11.6 GM/dL (10.7-15.3); LYMPH % 51.3 % (8-40); MCH 28.2 pg (25.7-33.7); MCHC 33.8 g/dl (32.0-36.0); MEAN CELL VOLUME 83.3 fl (80-96); MEAN PLT VOLUME 8.6 fl (7.5-11.1); MONO % 5.5 % (3.8-10.2); NEUT % 41.2 % (42.8-82.8); PLATELET COUNT 126 10^3/uL (134-434); RDW 17.3 % (11.6-15.6)
[2020-10-08 12:06] LABS: BLOOD UREA NITROGEN 9.8 mg/dL (7-18); CALCIUM 9.1 mg/dL (8.5-10.1)
[2020-10-08 12:07] LABS: ALBUMIN 3.9 g/dl (3.4-5.0)
[2020-10-08 12:12] LABS: TOT PROT 6.7 g/dl (6.4-8.2)
[2020-10-08 12:13] LABS: BILIRUBIN,TOTAL 1.7 mg/dL (0.2-1)
[2020-10-08 12:16] LABS: CREATININE 0.7 mg/dL (0.55-1.3)
== END | disposition home or self-care (01) ==
LOC: JONCCHEMO 11:01
PROVIDERS: ATTEND Internal Medicine Hematology & Oncology
DX: Z53.8 Procedure and treatment not carried out for other reasons (principal)
CPT/HCPCS: 36415; 80053; 85025; 86300; 96365

== ENCOUNTER 2020-10-15 07:13 | Day surgery (SDC) | payer OTHER ==
[2020-10-15] MEDS ORDERED: ONDANSETRON INJECTION 8 MG in SODIUM CHLORIDE 50 ML IVPB ONE (09:30)
[2020-10-15 09:51] LABS: BASO % 1.1 % (0-2.0); EOS % 0.4 % (0-4.5); HEMATOCRIT 32.7 % (32.4-45.2); HEMOGLOBIN 10.9 GM/dL (10.7-15.3); LYMPH % 29.8 % (8-40); MCH 27.9 pg (25.7-33.7); MCHC 33.4 g/dl (32.0-36.0); MEAN CELL VOLUME 83.5 fl (80-96); MEAN PLT VOLUME 8.2 fl (7.5-11.1); MONO % 12.1 % (3.8-10.2); NEUT % 56.6 % (42.8-82.8); PLATELET COUNT 113 10^3/uL (134-434); RBC 3.92 M/mm3 (3.60-5.2); RDW 17.9 % (11.6-15.6); WHITE BLOOD COUNT 2.8 K/mm3 (4.0-10.0)
[2020-10-15] MEDS ORDERED: PACLITAXEL PROTEIN BOUND IVPB ONE (10:00)
[2020-10-15] MEDS ORDERED: SODIUM CHLORIDE IVPB ONE (10:00)
[2020-10-15 10:47] LABS: ALBUMIN 3.7 g/dl (3.4-5.0); BILIRUBIN,TOTAL 0.8 mg/dL (0.2-1); CREATININE 0.7 mg/dL (0.55-1.3); TOT PROT 6.8 g/dl (6.4-8.2)
[2020-10-15] MEDS ORDERED: PEMBROLIZUMAB 200 MG in SODIUM CHLORIDE 50 ML IV ONE (11:30)
[2020-10-15 16:14] VITALS: TEMP 98.8
[2020-10-15 16:15] VITALS: BP 136/71; PULSE 87
== END 2020-10-15 13:25 | disposition home or self-care (01) ==
LOC: JONCCHEMO 07:13
PROVIDERS: ATTEND Internal Medicine Hematology & Oncology
DX: Z51.11 Encounter for antineoplastic chemotherapy (principal); C50.919 Malignant neoplasm of unspecified site of unspecified female breast; C34.90 Malignant neoplasm of unspecified part of unspecified bronchus or lung
CPT/HCPCS: 36415; 80053; 85025; 96367; 96413; 96417; J9264; J9271

== ENCOUNTER 2020-10-22 07:06 | Day surgery (SDC) | payer OTHER ==
[2020-10-22] MEDS ORDERED: ONDANSETRON INJECTION 8 MG in SODIUM CHLORIDE 50 ML IVPB ONE (10:00)
[2020-10-22 10:24] LABS: BASO % 0.9 % (0-2.0); EOS % 0.8 % (0-4.5); HEMATOCRIT 32.5 % (32.4-45.2); HEMOGLOBIN 10.7 GM/dL (10.7-15.3); MCH 27.7 pg (25.7-33.7); MEAN CELL VOLUME 83.9 fl (80-96); MONO % 4.2 % (3.8-10.2); NEUT % 64.1 % (42.8-82.8); PLATELET COUNT 144 10^3/uL (134-434); RBC 3.88 M/mm3 (3.60-5.2); RDW 16.9 % (11.6-15.6); WHITE BLOOD COUNT 3.9 K/mm3 (4.0-10.0)
[2020-10-22] MEDS ORDERED: PACLITAXEL PROTEIN BOUND IVPB ONE (10:30)
[2020-10-22] MEDS ORDERED: SODIUM CHLORIDE IVPB ONE (10:30)
[2020-10-22 10:44] LABS: CALCIUM 8.8 mg/dL (8.5-10.1)
[2020-10-22 10:45] LABS: ALBUMIN 3.6 g/dl (3.4-5.0); BLOOD UREA NITROGEN 12.4 mg/dL (7-18)
[2020-10-22 10:48] LABS: CREATININE 0.7 mg/dL (0.55-1.3)
[2020-10-22 10:49] LABS: BILIRUBIN,TOTAL 0.9 mg/dL (0.2-1); TOT PROT 6.6 g/dl (6.4-8.2)
[2020-10-22 15:37] VITALS: TEMP 98.4
[2020-10-22 15:38] VITALS: BP 133/70; PULSE 67
[2020-10-28 10:08] LABS: HEP B CORE AB, TOT Negative (Negative)
== END 2020-10-22 14:00 | disposition home or self-care (01) ==
LOC: JONCCHEMO 07:06
PROVIDERS: ATTEND Internal Medicine Hematology & Oncology
DX: Z51.11 Encounter for antineoplastic chemotherapy (principal); C34.90 Malignant neoplasm of unspecified part of unspecified bronchus or lung; C50.919 Malignant neoplasm of unspecified site of unspecified female breast
CPT/HCPCS: 36415; 80053; 82607; 82728; 82747; 83540; 83550; 84439; 84443; 85014; 85025; 86704; 86706; 86707; 86708; 86709; 87340; 96375; 96413; J2405; J9264

== ENCOUNTER 2020-10-29 05:19 | Day surgery (SDC) | payer OTHER ==
[2020-10-29 09:51] LABS: BASO % 1.6 % (0-2.0); EOS % 3.1 % (0-4.5); HEMATOCRIT 30.6 % (32.4-45.2); HEMOGLOBIN 10.3 GM/dL (10.7-15.3); LYMPH % 54.6 % (8-40); MCH 27.7 pg (25.7-33.7); MCHC 33.6 g/dl (32.0-36.0); MEAN CELL VOLUME 82.5 fl (80-96); MEAN PLT VOLUME 8.9 fl (7.5-11.1); MONO % 7.2 % (3.8-10.2); NEUT % 33.5 % (42.8-82.8); PLATELET COUNT 135 10^3/uL (134-434); RBC 3.71 M/mm3 (3.60-5.2); RDW 17.3 % (11.6-15.6)
[2020-10-29 09:59] LABS: WHITE BLOOD COUNT 1.3 K/mm3 (4.0-10.0)
[2020-10-29] MEDS ORDERED: ONDANSETRON INJECTION 8 MG in SODIUM CHLORIDE 50 ML IVPB ONE (10:00)
[2020-10-29 10:15] LABS: ALBUMIN 3.8 g/dl (3.4-5.0); CALCIUM 8.7 mg/dL (8.5-10.1)
[2020-10-29 10:18] LABS: CREATININE 0.8 mg/dL (0.55-1.3)
[2020-10-29 10:20] LABS: BILIRUBIN,TOTAL 1.2 mg/dL (0.2-1); TOT PROT 6.6 g/dl (6.4-8.2)
[2020-10-29] MEDS ORDERED: SODIUM CHLORIDE IVPB ONE (10:30)
[2020-10-29] MEDS ORDERED: PACLITAXEL PROTEIN BOUND IVPB ONE (10:30)
[2020-10-29] MEDS ORDERED: TBO-FILGRASTIM 480 MCG/0.8 ML DISP.SYRIN SQ ONE (11:45)
[2020-10-29 11:59] LABS: ANISOCYTOSIS 2+; MACROCYTOSIS 1+; OVALOCYTE 1+; PLATELET ESTIMATE DECREASED
[2020-10-29 15:39] VITALS: BP 109/56; PULSE 71; TEMP 97.4
== END 2020-10-29 11:45 | disposition home or self-care (01) ==
LOC: JONCCHEMO 05:19
PROVIDERS: ATTEND Internal Medicine Hematology & Oncology
PROC: 3E013GC Introduction of Other Therapeutic Substance into Subcutaneous Tissue, Percutaneous Approach (ICD-10-PCS; principal; 2020-10-29)
DX: C34.90 Malignant neoplasm of unspecified part of unspecified bronchus or lung (principal); C50.919 Malignant neoplasm of unspecified site of unspecified female breast; Z76.89 Persons encountering health services in other specified circumstances
CPT/HCPCS: 36415; 80053; 85025; 96372; J1447

== ENCOUNTER 2020-10-31 11:57 | Day surgery (SDC) | payer OTHER ==
[2020-10-31] MEDS ORDERED: TBO-FILGRASTIM 480 MCG/0.8 ML DISP.SYRIN SQ ONE (12:15)
[2020-10-31 12:42] VITALS: BP 124/64; PULSE 72; TEMP 98.4
== END 2020-10-31 12:42 | disposition home or self-care (01) ==
LOC: JONCNONCHE 11:57 → J7W 11:58 → JONCNONCHE 12:42
PROVIDERS: ATTEND Internal Medicine Hematology & Oncology
PROC: 3E013GC Introduction of Other Therapeutic Substance into Subcutaneous Tissue, Percutaneous Approach (ICD-10-PCS; principal; 2020-10-31)
DX: C34.90 Malignant neoplasm of unspecified part of unspecified bronchus or lung (principal); C50.919 Malignant neoplasm of unspecified site of unspecified female breast; Z76.89 Persons encountering health services in other specified circumstances
CPT/HCPCS: 96372; J1447

== ENCOUNTER 2020-11-05 17:55 | Inpatient (IN) | payer OTHER ==
[2020-11-05] MEDS ORDERED: KETOROLAC TROMETHAMINE 0.5% EYE DROP 1 DROP DROPS OD ONE (20:20)
[2020-11-05 20:50] LABS: BASO % 0.7 % (0-2.0); EOS % 0.2 % (0-4.5); HEMATOCRIT 32.1 % (32.4-45.2); HEMOGLOBIN 10.8 GM/dL (10.7-15.3); LYMPH % 18.4 % (8-40); MCH 28.1 pg (25.7-33.7); MCHC 33.7 g/dl (32.0-36.0); MEAN CELL VOLUME 83.3 fl (80-96); MEAN PLT VOLUME 8.3 fl (7.5-11.1); MONO % 10.1 % (3.8-10.2); NEUT % 70.6 % (42.8-82.8); PLATELET COUNT 93 10^3/uL (134-434); RBC 3.86 M/mm3 (3.60-5.2); RDW 19.3 % (11.6-15.6); WHITE BLOOD COUNT 8.7 K/mm3 (4.0-10.0)
[2020-11-05 21:15] LABS: ALBUMIN 3.5 g/dl (3.4-5.0); CALCIUM 9.2 mg/dL (8.5-10.1)
[2020-11-05 21:19] LABS: CREATININE 0.7 mg/dL (0.55-1.3)
[2020-11-05 21:21] LABS: BILIRUBIN,TOTAL 0.9 mg/dL (0.2-1); TOT PROT 6.9 g/dl (6.4-8.2)
[2020-11-05] MEDS ORDERED: CEFEPIME HCL/D5W 2 GM/50 ML BAG IVPB ONE (21:26)
[2020-11-05 21:30] LABS: ANISOCYTOSIS 3+; MACROCYTOSIS 1+; OVALOCYTE 1+; PLATELET ESTIMATE DECREASED; TARGET CELLS 2+
[2020-11-05] MEDS ORDERED: CEFEPIME 2 GM/100 ML BAG IVPB ONE ×2 (22:55→22:56)
[2020-11-06] MEDS ORDERED: ONDANSETRON 8 MG TABLET (FP) PO PRN (01:39)
[2020-11-06] MEDS ORDERED: HYDROmorphone HCL 2 MG TABLET ONE (04:59)
[2020-11-06] MEDS: HYDROmorphone HCL 2 MG TABLET PO PRN ×2 (05:09→11:22)
[2020-11-06] MEDS ORDERED: ALBUTEROL SO4 HFA INHALER IH PRN (07:08)
[2020-11-06 08:40] LABS: BASO % 0.6 % (0-2.0); EOS % 0.2 % (0-4.5); HEMATOCRIT 27.9 % (32.4-45.2); HEMOGLOBIN 9.5 GM/dL (10.7-15.3); LYMPH % 25.5 % (8-40); MCH 28.7 pg (25.7-33.7); MCHC 34.2 g/dl (32.0-36.0); MEAN CELL VOLUME 83.9 fl (80-96); MEAN PLT VOLUME 8.6 fl (7.5-11.1); NEUT % 59.7 % (42.8-82.8); PLATELET COUNT 59 10^3/uL (134-434); RBC 3.32 M/mm3 (3.60-5.2); RDW 19.3 % (11.6-15.6); WHITE BLOOD COUNT 3.2 K/mm3 (4.0-10.0)
[2020-11-06 09:05] LABS: ALBUMIN 3.1 g/dl (3.4-5.0); BLOOD UREA NITROGEN 10.3 mg/dL (7-18); CALCIUM 8.5 mg/dL (8.5-10.1)
[2020-11-06 09:08] LABS: CREATININE 0.8 mg/dL (0.55-1.3)
[2020-11-06 09:10] LABS: BILIRUBIN,TOTAL 0.6 mg/dL (0.2-1); TOT PROT 5.6 g/dl (6.4-8.2)
[2020-11-06 09:26] LABS: ANISOCYTOSIS 2+; MACROCYTOSIS 1+; PLATELET ESTIMATE DECREASED
[2020-11-06] MEDS ORDERED: METOPROLOL TARTRATE 50 MG TABLET (FP) PO SCH (10:00)
[2020-11-06] MEDS ORDERED: CEFEPIME HCL/D5W 2 GM/50 ML BAG IVPB SCH (10:00)
[2020-11-06] MEDS ORDERED: FOLIC ACID 1 MG TABLET (FP) PO SCH (10:00)
[2020-11-06] MEDS ORDERED: CEFEPIME 2 GM in DEXTROSE 5%-WATER 100 ML IVPB SCH (10:00)
[2020-11-06] MEDS ORDERED: TIOTROPIUM BROMIDE 2.5 MCG (SPIRIVA) RESPIMAT INHALER IH SCH (10:00)
[2020-11-06] MEDS ORDERED: LACTULOSE 20 GM/30 ML UDC (FOR ORAL USE ONLY) PO SCH (10:00)
[2020-11-06] MEDS ORDERED: BUDESONIDE/FORMETEROL FUMARATE 160/4.5 mcg INHALER IH SCH (10:00)
[2020-11-06] MEDS ORDERED: PANTOPRAZOLE 40 MG TABLET PO SCH (10:00)
[2020-11-06 16:03] VITALS: BP 109/70; PULSE 76; TEMP 98.7; BMI 34.6
[2020-11-06] MEDS ORDERED: SPIRONOLACTONE 25 MG TABLET PO SCH (22:00)
[2020-11-06] MEDS ORDERED: MONTELUKAST NA 10 MG TABLET PO SCH (22:00)
[2020-11-07] MEDS ORDERED: fentaNYL 100mcg/hr PATCH.TD72 TD SCH (10:00)
[2020-11-07] MEDS ORDERED: FENTANYL PATCH WASTE MC PRN (22:00)
== END 2020-11-06 18:37 | disposition home or self-care (01) | DRG 607 ==
LOC: JER 17:55 → JERBED 20:12 → J6S 11-06 09:18
PROVIDERS: ADMIT Internal Medicine; ATTEND Student in an Organized Health Care Education/Training Program
DX: L27.0 Generalized skin eruption due to drugs and medicaments taken internally (principal); C50.919 Malignant neoplasm of unspecified site of unspecified female breast; J45.909 Unspecified asthma, uncomplicated; F41.8 Other specified anxiety disorders; K74.60 Unspecified cirrhosis of liver; E78.5 Hyperlipidemia, unspecified; I10 Essential (primary) hypertension; L40.50 Arthropathic psoriasis, unspecified; E66.9 Obesity, unspecified; Z68.34 Body mass index [BMI] 34.0-34.9, adult; E11.9 Type 2 diabetes mellitus without complications
CPT/HCPCS: 36415; 71045-TC-FY; 80053; 85025; 85651; 86140; 87040; 93005; 93010; 93971-TC; 99285-25; C9803; J9264; U0003; U0005

== ENCOUNTER 2020-11-12 07:01 | Day surgery (SDC) | payer OTHER ==
[2020-11-12 09:55] LABS: BASO % 1.1 % (0-2.0); EOS % 0.5 % (0-4.5); HEMATOCRIT 28.4 % (32.4-45.2); HEMOGLOBIN 9.4 GM/dL (10.7-15.3); LYMPH % 20.5 % (8-40); MCH 28.3 pg (25.7-33.7); MCHC 33.3 g/dl (32.0-36.0); MEAN CELL VOLUME 85.1 fl (80-96); MEAN PLT VOLUME 9.4 fl (7.5-11.1); MONO % 4.9 % (3.8-10.2); PLATELET COUNT 115 10^3/uL (134-434); RBC 3.33 M/mm3 (3.60-5.2); RDW 18.7 % (11.6-15.6); WHITE BLOOD COUNT 3.5 K/mm3 (4.0-10.0)
[2020-11-12] MEDS ORDERED: ONDANSETRON INJECTION 8 MG in SODIUM CHLORIDE 50 ML IVPB ONE (10:00)
[2020-11-12] MEDS ORDERED: PACLITAXEL PROTEIN BOUND IVPB ONE (10:30)
[2020-11-12] MEDS ORDERED: SODIUM CHLORIDE IVPB ONE (10:30)
[2020-11-12 10:48] LABS: ALBUMIN 3.2 g/dl (3.4-5.0); BILIRUBIN,TOTAL 1.2 mg/dL (0.2-1); BLOOD UREA NITROGEN 11.6 mg/dL (7-18); CALCIUM 8.4 mg/dL (8.5-10.1); CREATININE 0.7 mg/dL (0.55-1.3); MAGNESIUM 1.8 mg/dL (1.8-2.4)
[2020-11-12 17:07] VITALS: BP 102/48; PULSE 70; TEMP 98.4
[2020-11-12] MEDS ORDERED: PORTA CATH FLUSH 10 ML IVPUSH ONE (17:07)
== END 2020-11-12 14:00 | disposition home or self-care (01) ==
LOC: JONCCHEMO 07:01
PROVIDERS: ATTEND Internal Medicine Hematology & Oncology
DX: Z51.11 Encounter for antineoplastic chemotherapy (principal); C50.919 Malignant neoplasm of unspecified site of unspecified female breast; C34.90 Malignant neoplasm of unspecified part of unspecified bronchus or lung
CPT/HCPCS: 36415; 80053; 83735; 84439; 84443; 85025; 86300; 96367; 96413; J2405; J9264

== ENCOUNTER 2020-11-19 16:10 | Inpatient (IN) | payer OTHER ==
[2020-11-19] MEDS ORDERED: VANCOMYCIN 1 GM in D5W (PRE-DOCKED) 1,000 MG/250 ML IVPB ONE (17:56)
[2020-11-19] MEDS ORDERED: PIPERACILLIN/TAZOB 3.375 GM 3.375 GM in DEXTROSE 5%-WATER - 50 ML IVPB ONE (17:56)
[2020-11-19] MEDS ORDERED: VANCOMYCIN 1 GM PREMIX - 1 GM/200 ML BAG IVPB ONE (17:57)
[2020-11-19] MEDS ORDERED: PIPERACILLIN/TAZOB 3.375 GM 3.375 GM/50 ML BAG IVPB ONE (19:39)
[2020-11-19 20:34] LABS: URINE APPEARANCE CLEAR; URINE BILIRUBIN 1+ (NEGATIVE); URINE COLOR DK YELLOW; URINE GLUCOSE (UA) NEGATIVE (NEGATIVE); URINE KETONE TRACE (NEGATIVE); URINE LEUK ESTERASE NEGATIVE (NEGATIVE); URINE NITRITE NEGATIVE (NEGATIVE); URINE PROTEIN NEGATIVE (NEGATIVE)
[2020-11-19 21:12] VITALS: BMI 34.3
[2020-11-19] MEDS ORDERED: VANCOMYCIN 1 GRAM (PRE-DOCKED) 1,000 MG/250 ML BAG IVPB ONE (22:15)
[2020-11-20 08:16] LABS: HEMATOCRIT 24.5 % (32.4-45.2); HEMOGLOBIN 8.5 GM/dL (10.7-15.3); MCH 28.8 pg (25.7-33.7); MCHC 34.6 g/dl (32.0-36.0); MEAN CELL VOLUME 83.1 fl (80-96); MEAN PLT VOLUME 8.7 fl (7.5-11.1); RBC 2.95 M/mm3 (3.60-5.2)
[2020-11-20 08:18] LABS: WHITE BLOOD COUNT 2.6 K/mm3 (4.0-10.0)
[2020-11-20 08:19] LABS: PLATELET COUNT 136 10^3/uL (134-434)
[2020-11-20] MEDS ORDERED: DEXTROSE 5%-WATER - 50 ML IVPB ONE ×2 (09:27→16:31)
[2020-11-20] MEDS ORDERED: PIPERACILLIN/TAZOBACTAM 3.375 GM VIAL IVPB ONE ×2 (09:27→16:31)
[2020-11-20] MEDS ORDERED: PIPERACILLIN/TAZOB 3.375 GM 3.375 GM in DEXTROSE 5%-WATER - 50 ML IVPB ONE (09:30)
[2020-11-20 10:45] LABS: BLOOD UREA NITROGEN 6.9 mg/dL (7-18); CALCIUM 8.5 mg/dL (8.5-10.1)
[2020-11-20 10:46] LABS: ALBUMIN 3.1 g/dl (3.4-5.0)
[2020-11-20 10:49] LABS: CREATININE 0.7 mg/dL (0.55-1.3)
[2020-11-20 10:50] LABS: BILIRUBIN,TOTAL 1.5 mg/dL (0.2-1); TOT PROT 5.7 g/dl (6.4-8.2)
[2020-11-20 11:00] LABS: ANISOCYTOSIS 1+; MACROCYTOSIS 0; OVALOCYTE 1+; PLATELET ESTIMATE DECREASED
[2020-11-20] MEDS ORDERED: PT OWN MED DRAWER 7, Y5N ONE ×2 (12:12→21:40)
[2020-11-20] MEDS: PANTOPRAZOLE SOD 40 MG SUSPENSION PACKET PO SCH (12:14)
[2020-11-20] MEDS: FOLIC ACID 1 MG TABLET (FP) PO SCH (12:14)
[2020-11-20] MEDS: CYCLOBENZAPRINE HCL 10 MG TABLET (FP) PO SCH ×2 (12:14→21:51)
[2020-11-20] MEDS: BUDESONIDE/FORMETEROL FUMARATE 80/4.5 mcg INHALER IH SCH ×2 (12:36→23:37)
[2020-11-20] MEDS: VANCOMYCIN 1 GRAM (PRE-DOCKED) 1,000 MG/250 ML BAG IVPB SCH (14:51)
[2020-11-20] MEDS: ENOXAPARIN NA (PORCINE) 40 MG/0.4 ML DISP.SYRIN SQ SCH (14:51)
[2020-11-20] MEDS: PIPERACILLIN/TAZOB 3.375 GM 3.375 GM in DEXTROSE 5%-WATER - 50 ML IVPB SCH (17:40)
[2020-11-20] MEDS ORDERED: TBO-FILGRASTIM 480 MCG/0.8 ML DISP.SYRIN SQ ONE (19:18)
[2020-11-20] MEDS ORDERED: ONDANSETRON 4 MG TABLET PO ONE (21:50)
[2020-11-20] MEDS: MONTELUKAST NA 10 MG TABLET PO SCH (21:51)
[2020-11-20] MEDS: ESCITALOPRAM OXALATE 20 MG TABLET PO SCH (21:52)
[2020-11-20] MEDS: ONDANSETRON 8 MG TABLET (FP) PO PRN (22:01)
[2020-11-21] MEDS ORDERED: DEXTROSE 5%-WATER - 50 ML IVPB ONE ×3 (00:51→15:52)
[2020-11-21] MEDS ORDERED: PIPERACILLIN/TAZOBACTAM 3.375 GM VIAL IVPB ONE ×3 (00:51→15:52)
[2020-11-21] MEDS: PIPERACILLIN/TAZOB 3.375 GM 3.375 GM in DEXTROSE 5%-WATER - 50 ML IVPB SCH ×3 (01:36→16:59)
[2020-11-21] MEDS: VANCOMYCIN 1 GRAM (PRE-DOCKED) 1,000 MG/250 ML BAG IVPB SCH ×2 (02:29→13:43)
[2020-11-21 07:51] LABS: BASO % 0.5 % (0-2.0); EOS % 0.8 % (0-4.5); HEMATOCRIT 25.5 % (32.4-45.2); HEMOGLOBIN 8.8 GM/dL (10.7-15.3); LYMPH % 24.9 % (8-40); MCH 28.9 pg (25.7-33.7); MCHC 34.7 g/dl (32.0-36.0); MEAN CELL VOLUME 83.4 fl (80-96); MEAN PLT VOLUME 8.6 fl (7.5-11.1); MONO % 15.3 % (3.8-10.2); NEUT % 58.5 % (42.8-82.8); PLATELET COUNT 153 10^3/uL (134-434); RBC 3.06 M/mm3 (3.60-5.2); WHITE BLOOD COUNT 3.7 K/mm3 (4.0-10.0)
[2020-11-21] MEDS: MOXIFLOXACIN HCL 0.5% OPHTHALMIC 3 ML BOTTLE OU SCH ×8 (07:55→21:44)
[2020-11-21 08:06] LABS: BLOOD UREA NITROGEN 6.3 mg/dL (7-18); CALCIUM 8.1 mg/dL (8.5-10.1)
[2020-11-21 08:09] LABS: CREATININE 0.8 mg/dL (0.55-1.3)
[2020-11-21] MEDS: FOLIC ACID 1 MG TABLET (FP) PO SCH (10:04)
[2020-11-21] MEDS: PANTOPRAZOLE SOD 40 MG SUSPENSION PACKET PO SCH (10:04)
[2020-11-21] MEDS: SPIRONOLACTONE 25 MG TABLET PO SCH (10:04)
[2020-11-21] MEDS: FUROSEMIDE 40 MG TABLET (FP) PO SCH (10:05)
[2020-11-21] MEDS: BUDESONIDE/FORMETEROL FUMARATE 80/4.5 mcg INHALER IH SCH ×2 (10:05→21:44)
[2020-11-21] MEDS: CYCLOBENZAPRINE HCL 10 MG TABLET (FP) PO SCH ×2 (10:05→21:38)
[2020-11-21] MEDS: ENOXAPARIN NA (PORCINE) 40 MG/0.4 ML DISP.SYRIN SQ SCH (10:05)
[2020-11-21 10:18] LABS: ANISOCYTOSIS 0; MACROCYTOSIS 0; PLATELET ESTIMATE DECREASED
[2020-11-21] MEDS ORDERED: PT OWN MED DRAWER 7, Y5N ONE (20:49)
[2020-11-21] MEDS: ESCITALOPRAM OXALATE 20 MG TABLET PO SCH (21:38)
[2020-11-21] MEDS: MONTELUKAST NA 10 MG TABLET PO SCH (21:38)
[2020-11-22] MEDS: VANCOMYCIN 1 GRAM (PRE-DOCKED) 1,000 MG/250 ML BAG IVPB SCH ×2 (01:08→16:28)
[2020-11-22] MEDS: MOXIFLOXACIN HCL 0.5% OPHTHALMIC 3 ML BOTTLE OU SCH ×13 (02:00→23:43)
[2020-11-22] MEDS ORDERED: ACETAMINOPHEN 1000 MG/100 ML VIAL (NON FORMULARY) IVPB ONE (02:34)
[2020-11-22] MEDS ORDERED: DEXTROSE 5%-WATER - 50 ML IVPB ONE ×3 (02:57→17:43)
[2020-11-22] MEDS ORDERED: PIPERACILLIN/TAZOBACTAM 3.375 GM VIAL IVPB ONE ×3 (02:57→17:43)
[2020-11-22] MEDS ORDERED: HYDROmorphone HCL 2 MG TABLET PO ONE (02:58)
[2020-11-22] MEDS: PIPERACILLIN/TAZOB 3.375 GM 3.375 GM in DEXTROSE 5%-WATER - 50 ML IVPB SCH ×3 (03:22→18:39)
[2020-11-22 06:37] LABS: BASO % 0.6 % (0-2.0); HEMATOCRIT 22.8 % (32.4-45.2); HEMOGLOBIN 7.8 GM/dL (10.7-15.3); LYMPH % 16.7 % (8-40); MCH 28.6 pg (25.7-33.7); MCHC 34.1 g/dl (32.0-36.0); MEAN CELL VOLUME 83.7 fl (80-96); MEAN PLT VOLUME 8.2 fl (7.5-11.1); MONO % 19.1 % (3.8-10.2); NEUT % 62.6 % (42.8-82.8); PLATELET COUNT 129 10^3/uL (134-434); RBC 2.72 M/mm3 (3.60-5.2); RDW 19.5 % (11.6-15.6); WHITE BLOOD COUNT 5.4 K/mm3 (4.0-10.0)
[2020-11-22 06:51] LABS: CALCIUM 7.9 mg/dL (8.5-10.1)
[2020-11-22 06:52] LABS: BLOOD UREA NITROGEN 6.4 mg/dL (7-18)
[2020-11-22 06:55] LABS: CREATININE 0.9 mg/dL (0.55-1.3)
[2020-11-22] MEDS: ENOXAPARIN NA (PORCINE) 40 MG/0.4 ML DISP.SYRIN SQ SCH (09:23)
[2020-11-22] MEDS: FOLIC ACID 1 MG TABLET (FP) PO SCH (09:24)
[2020-11-22] MEDS: CYCLOBENZAPRINE HCL 10 MG TABLET (FP) PO SCH ×2 (09:24→21:51)
[2020-11-22] MEDS: FUROSEMIDE 40 MG TABLET (FP) PO SCH (09:24)
[2020-11-22] MEDS: PANTOPRAZOLE SOD 40 MG SUSPENSION PACKET PO SCH (09:24)
[2020-11-22] MEDS: BUDESONIDE/FORMETEROL FUMARATE 80/4.5 mcg INHALER IH SCH ×2 (09:24→22:03)
[2020-11-22] MEDS: SPIRONOLACTONE 25 MG TABLET PO SCH (09:24)
[2020-11-22 12:15] LABS: ANISOCYTOSIS 0; HELMET CELLS 0; HOWELL-JOLLY BODIES 0; MACROCYTOSIS 0; OVALOCYTE 0; PLATELET ESTIMATE DECREASED; ROULEAU 0; SICKELED CELLS 0; TARGET CELLS 0; TEAR DROP CELLS 0; TOXIC GRANULATION 0
[2020-11-22] MEDS ORDERED: FENTANYL PATCH WASTE TD PRN (17:33)
[2020-11-22] MEDS ORDERED: POTASSIUM CHLORIDE TABS 20 MEQ TABLET.ER (FP) PO ONE ×2 (17:39→21:45)
[2020-11-22] MEDS: fentaNYL 100mcg/hr PATCH.TD72 TD SCH (18:02)
[2020-11-22] MEDS: FENTANYL PATCH WASTE TD PRN (18:14)
[2020-11-22] MEDS: LACTULOSE 20 GM/30 ML UDC (FOR ORAL USE ONLY) PO PRN (21:50)
[2020-11-22] MEDS: ESCITALOPRAM OXALATE 20 MG TABLET PO SCH (21:50)
[2020-11-22] MEDS: MONTELUKAST NA 10 MG TABLET PO SCH (21:51)
[2020-11-23] MEDS: VANCOMYCIN 1 GRAM (PRE-DOCKED) 1,000 MG/250 ML BAG IVPB SCH ×2 (01:31→13:00)
[2020-11-23] MEDS: PIPERACILLIN/TAZOB 3.375 GM 3.375 GM in DEXTROSE 5%-WATER - 50 ML IVPB SCH ×5 (01:48→18:41)
[2020-11-23] MEDS: MOXIFLOXACIN HCL 0.5% OPHTHALMIC 3 ML BOTTLE OU SCH ×9 (01:48→22:10)
[2020-11-23] MEDS ORDERED: PIPERACILLIN/TAZOBACTAM 3.375 GM VIAL IVPB ONE ×3 (02:10→17:31)
[2020-11-23] MEDS ORDERED: DEXTROSE 5%-WATER - 50 ML IVPB ONE ×3 (02:10→17:32)
[2020-11-23] MEDS: ONDANSETRON 8 MG TABLET (FP) PO PRN ×2 (03:18→09:40)
[2020-11-23] MEDS ORDERED: ONDANSETRON 4 MG TABLET PO ONE ×2 (03:18→09:39)
[2020-11-23] MEDS: PORTA CATH FLUSH 10 ML IVPUSH PRN (05:32)
[2020-11-23 09:27] LABS: BASO % 0.6 % (0-2.0); HEMOGLOBIN 9.2 GM/dL (10.7-15.3); LYMPH % 15.1 % (8-40); MCH 28.4 pg (25.7-33.7); MEAN CELL VOLUME 83.3 fl (80-96); MEAN PLT VOLUME 8.6 fl (7.5-11.1); MONO % 21.2 % (3.8-10.2); NEUT % 62.1 % (42.8-82.8); PLATELET COUNT 159 10^3/uL (134-434); RBC 3.23 M/mm3 (3.60-5.2); RDW 19.9 % (11.6-15.6); WHITE BLOOD COUNT 7.9 K/mm3 (4.0-10.0)
[2020-11-23 09:47] LABS: CALCIUM 8.1 mg/dL (8.5-10.1)
[2020-11-23 09:49] LABS: BLOOD UREA NITROGEN 8.2 mg/dL (7-18); MAGNESIUM 1.8 mg/dL (1.8-2.4)
[2020-11-23 09:51] LABS: CREATININE 1.2 mg/dL (0.55-1.3)
[2020-11-23] MEDS: SPIRONOLACTONE 25 MG TABLET PO SCH (09:58)
[2020-11-23] MEDS: FUROSEMIDE 40 MG TABLET (FP) PO SCH (09:58)
[2020-11-23] MEDS: CYCLOBENZAPRINE HCL 10 MG TABLET (FP) PO SCH ×2 (10:00→21:07)
[2020-11-23] MEDS: FOLIC ACID 1 MG TABLET (FP) PO SCH (10:00)
[2020-11-23] MEDS: ENOXAPARIN NA (PORCINE) 40 MG/0.4 ML DISP.SYRIN SQ SCH (10:01)
[2020-11-23] MEDS: PANTOPRAZOLE SOD 40 MG SUSPENSION PACKET PO SCH (10:01)
[2020-11-23] MEDS: BUDESONIDE/FORMETEROL FUMARATE 80/4.5 mcg INHALER IH SCH ×2 (10:02→21:07)
[2020-11-23 10:50] LABS: ANISOCYTOSIS 0; MACROCYTOSIS 0; PLATELET ESTIMATE DECREASED
[2020-11-23] MEDS: ESCITALOPRAM OXALATE 20 MG TABLET PO SCH (21:06)
[2020-11-23] MEDS: MONTELUKAST NA 10 MG TABLET PO SCH (21:06)
[2020-11-23] MEDS: LACTULOSE 20 GM/30 ML UDC (FOR ORAL USE ONLY) PO PRN (21:12)
[2020-11-24] MEDS ORDERED: PIPERACILLIN/TAZOBACTAM 3.375 GM VIAL IVPB ONE ×4 (00:16→23:51)
[2020-11-24] MEDS ORDERED: DEXTROSE 5%-WATER - 50 ML IVPB ONE ×4 (00:17→23:51)
[2020-11-24] MEDS: PIPERACILLIN/TAZOB 3.375 GM 3.375 GM in DEXTROSE 5%-WATER - 50 ML IVPB SCH ×3 (01:07→18:29)
[2020-11-24] MEDS: VANCOMYCIN 1 GRAM (PRE-DOCKED) 1,000 MG/250 ML BAG IVPB SCH ×2 (01:09→14:01)
[2020-11-24] MEDS ORDERED: MAGNESIUM OXIDE 400 MG TABLET (FP) PO ONE (08:11)
[2020-11-24 08:23] LABS: BASO % 0.7 % (0-2.0); EOS % 1.1 % (0-4.5); HEMATOCRIT 26.3 % (32.4-45.2); HEMOGLOBIN 8.9 GM/dL (10.7-15.3); LYMPH % 14.6 % (8-40); MCH 27.9 pg (25.7-33.7); MCHC 33.8 g/dl (32.0-36.0); MEAN CELL VOLUME 82.6 fl (80-96); MEAN PLT VOLUME 8.3 fl (7.5-11.1); MONO % 24.6 % (3.8-10.2); PLATELET COUNT 133 10^3/uL (134-434); RBC 3.18 M/mm3 (3.60-5.2); RDW 19.8 % (11.6-15.6); WHITE BLOOD COUNT 6.9 K/mm3 (4.0-10.0)
[2020-11-24 08:37] LABS: CALCIUM 8.3 mg/dL (8.5-10.1)
[2020-11-24 08:38] LABS: ALBUMIN 3.2 g/dl (3.4-5.0); BLOOD UREA NITROGEN 9.1 mg/dL (7-18)
[2020-11-24 08:41] LABS: CREATININE 1.2 mg/dL (0.55-1.3)
[2020-11-24] MEDS: ENOXAPARIN NA (PORCINE) 40 MG/0.4 ML DISP.SYRIN SQ SCH (09:53)
[2020-11-24 09:54] LABS: ANISOCYTOSIS 1+; MACROCYTOSIS 1+; PLATELET ESTIMATE DECREASED
[2020-11-24] MEDS: SPIRONOLACTONE 25 MG TABLET PO SCH ×2 (09:54→14:01)
[2020-11-24] MEDS: BUDESONIDE/FORMETEROL FUMARATE 80/4.5 mcg INHALER IH SCH ×2 (09:55→22:20)
[2020-11-24] MEDS: PANTOPRAZOLE SOD 40 MG SUSPENSION PACKET PO SCH (09:55)
[2020-11-24] MEDS: CYCLOBENZAPRINE HCL 10 MG TABLET (FP) PO SCH ×2 (09:55→22:18)
[2020-11-24] MEDS: FOLIC ACID 1 MG TABLET (FP) PO SCH (09:55)
[2020-11-24] MEDS: MOXIFLOXACIN HCL 0.5% OPHTHALMIC 3 ML BOTTLE OU SCH ×2 (10:01→22:20)
[2020-11-24] MEDS: FUROSEMIDE 40 MG TABLET (FP) PO SCH (14:01)
[2020-11-24] MEDS: LACTULOSE 20 GM/30 ML UDC (FOR ORAL USE ONLY) PO PRN ×2 (14:02→22:17)
[2020-11-24 15:21] LABS: URINE APPEARANCE CLEAR; URINE BILIRUBIN NEGATIVE (NEGATIVE); URINE COLOR YELLOW; URINE GLUCOSE (UA) NEGATIVE (NEGATIVE); URINE KETONE NEGATIVE (NEGATIVE); URINE LEUK ESTERASE NEGATIVE (NEGATIVE); URINE NITRITE NEGATIVE (NEGATIVE); URINE PROTEIN NEGATIVE (NEGATIVE)
[2020-11-24] MEDS: fentaNYL 100mcg/hr PATCH.TD72 TD SCH (18:29)
[2020-11-24] MEDS: ESCITALOPRAM OXALATE 20 MG TABLET PO SCH (22:18)
[2020-11-24] MEDS: MONTELUKAST NA 10 MG TABLET PO SCH (22:18)
[2020-11-25] MEDS: PIPERACILLIN/TAZOB 3.375 GM 3.375 GM in DEXTROSE 5%-WATER - 50 ML IVPB SCH ×3 (01:06→18:45)
[2020-11-25] MEDS: MOXIFLOXACIN HCL 0.5% OPHTHALMIC 3 ML BOTTLE OU SCH ×4 (05:51→22:12)
[2020-11-25 09:11] LABS: BASO % 0.5 % (0-2.0); EOS % 0.9 % (0-4.5); HEMATOCRIT 29.2 % (32.4-45.2); HEMOGLOBIN 9.9 GM/dL (10.7-15.3); LYMPH % 11.8 % (8-40); MCH 28.3 pg (25.7-33.7); MEAN PLT VOLUME 8.5 fl (7.5-11.1); MONO % 19.4 % (3.8-10.2); NEUT % 67.4 % (42.8-82.8); PLATELET COUNT 157 10^3/uL (134-434); RBC 3.52 M/mm3 (3.60-5.2); RDW 20.1 % (11.6-15.6); WHITE BLOOD COUNT 9.6 K/mm3 (4.0-10.0)
[2020-11-25 09:26] LABS: CALCIUM 8.7 mg/dL (8.5-10.1)
[2020-11-25 09:27] LABS: BLOOD UREA NITROGEN 11.5 mg/dL (7-18); MAGNESIUM 2.2 mg/dL (1.8-2.4)
[2020-11-25 09:31] LABS: CREATININE 1.2 mg/dL (0.55-1.3); PHOSPHOROUS 3.8 mg/dL (2.5-4.9)
[2020-11-25] MEDS ORDERED: DEXTROSE 5%-WATER - 50 ML IVPB ONE ×2 (10:38→18:31)
[2020-11-25] MEDS ORDERED: PIPERACILLIN/TAZOBACTAM 3.375 GM VIAL IVPB ONE ×2 (10:38→18:30)
[2020-11-25] MEDS: CYCLOBENZAPRINE HCL 10 MG TABLET (FP) PO SCH ×2 (10:53→22:12)
[2020-11-25] MEDS: SPIRONOLACTONE 25 MG TABLET PO SCH (10:53)
[2020-11-25] MEDS: ENOXAPARIN NA (PORCINE) 40 MG/0.4 ML DISP.SYRIN SQ SCH (10:54)
[2020-11-25] MEDS: FOLIC ACID 1 MG TABLET (FP) PO SCH (10:54)
[2020-11-25] MEDS: FUROSEMIDE 40 MG TABLET (FP) PO SCH (10:54)
[2020-11-25] MEDS: BUDESONIDE/FORMETEROL FUMARATE 80/4.5 mcg INHALER IH SCH ×2 (10:55→22:13)
[2020-11-25] MEDS: PANTOPRAZOLE SOD 40 MG SUSPENSION PACKET PO SCH (10:55)
[2020-11-25] MEDS: VANCOMYCIN 1 GM in D5W (PRE-DOCKED) 1,000 MG/250 ML IVPB SCH ×3 (10:55→22:36)
[2020-11-25] MEDS ORDERED: HYDROmorphone HCL 2 MG TABLET PO PRN (12:09)
[2020-11-25] MEDS ORDERED: FUROSEMIDE 40 MG/4 ML INJECTABLE VIAL IVPUSH SCH (14:30)
[2020-11-25] MEDS ORDERED: diphenhydrAMINE HCL 25 MG CAPSULE (FP) PO PRN (14:30)
[2020-11-25] MEDS: HYDROmorphone HCl 2 MG/ML VIAL IVPB PRN ×2 (15:33→22:10)
[2020-11-25] MEDS ORDERED: PT OWN MED DRAWER 7, Y5N ONE (21:10)
[2020-11-25] MEDS: TRIAMCINOLONE ACET 0.1% OINT 15 GM TUBE TP SCH (22:11)
[2020-11-25] MEDS: ESCITALOPRAM OXALATE 20 MG TABLET PO SCH (22:12)
[2020-11-25] MEDS: MONTELUKAST NA 10 MG TABLET PO SCH (22:12)
[2020-11-26] MEDS ORDERED: DEXTROSE 5%-WATER - 50 ML IVPB ONE ×2 (01:55→11:08)
[2020-11-26] MEDS ORDERED: PIPERACILLIN/TAZOBACTAM 3.375 GM VIAL IVPB ONE ×2 (01:55→11:08)
[2020-11-26] MEDS: PIPERACILLIN/TAZOB 3.375 GM 3.375 GM in DEXTROSE 5%-WATER - 50 ML IVPB SCH ×2 (02:16→11:19)
[2020-11-26] MEDS: LACTULOSE 20 GM/30 ML UDC (FOR ORAL USE ONLY) PO PRN ×2 (03:06→21:49)
[2020-11-26] MEDS: PORTA CATH FLUSH 10 ML IVPUSH PRN (06:40)
[2020-11-26] MEDS: MOXIFLOXACIN HCL 0.5% OPHTHALMIC 3 ML BOTTLE OU SCH ×4 (06:41→21:43)
[2020-11-26 07:52] LABS: BASO % 0.5 % (0-2.0); EOS % 0.5 % (0-4.5); HEMATOCRIT 26.7 % (32.4-45.2); LYMPH % 10.2 % (8-40); MCH 27.8 pg (25.7-33.7); MCHC 33.7 g/dl (32.0-36.0); MEAN CELL VOLUME 82.4 fl (80-96); MEAN PLT VOLUME 8.3 fl (7.5-11.1); MONO % 13.1 % (3.8-10.2); NEUT % 75.7 % (42.8-82.8); PLATELET COUNT 111 10^3/uL (134-434); RBC 3.24 M/mm3 (3.60-5.2); RDW 20.4 % (11.6-15.6); WHITE BLOOD COUNT 7.3 K/mm3 (4.0-10.0)
[2020-11-26 08:00] LABS: BLOOD UREA NITROGEN 14.1 mg/dL (7-18); CALCIUM 8.3 mg/dL (8.5-10.1)
[2020-11-26 08:04] LABS: CREATININE 1.3 mg/dL (0.55-1.3)
[2020-11-26] MEDS: HYDROmorphone HCl 2 MG/ML VIAL IVPB PRN (09:32)
[2020-11-26] MEDS ORDERED: FUROSEMIDE 40 MG/4 ML INJECTABLE VIAL IVPUSH SCH (10:00)
[2020-11-26 10:07] LABS: ANISOCYTOSIS 1+; MACROCYTOSIS 1+
[2020-11-26] MEDS: TRIAMCINOLONE ACET 0.1% OINT 15 GM TUBE TP SCH ×2 (11:15→21:43)
[2020-11-26] MEDS: BUDESONIDE/FORMETEROL FUMARATE 80/4.5 mcg INHALER IH SCH ×2 (11:16→21:44)
[2020-11-26] MEDS: ENOXAPARIN NA (PORCINE) 40 MG/0.4 ML DISP.SYRIN SQ SCH (11:17)
[2020-11-26] MEDS: CYCLOBENZAPRINE HCL 10 MG TABLET (FP) PO SCH ×2 (11:17→21:44)
[2020-11-26] MEDS: FOLIC ACID 1 MG TABLET (FP) PO SCH (11:18)
[2020-11-26] MEDS: PANTOPRAZOLE SOD 40 MG SUSPENSION PACKET PO SCH (11:18)
[2020-11-26] MEDS: SPIRONOLACTONE 25 MG TABLET PO SCH (11:18)
[2020-11-26] MEDS: VANCOMYCIN 1 GM in D5W (PRE-DOCKED) 1,000 MG/250 ML IVPB SCH (13:34)
[2020-11-26] MEDS ORDERED: FUROSEMIDE 40 MG/4 ML INJECTABLE VIAL IVPUSH ONE (14:31)
[2020-11-26] MEDS: ALBUMIN HUMAN 25% 12.5 GM/50 ML VIAL IVPB SCH ×2 (18:18→22:26)
[2020-11-26] MEDS: fentaNYL 100mcg/hr PATCH.TD72 TD SCH (19:20)
[2020-11-26] MEDS: FENTANYL PATCH WASTE TD PRN (19:22)
[2020-11-26] MEDS: MONTELUKAST NA 10 MG TABLET PO SCH (21:44)
[2020-11-26] MEDS: ESCITALOPRAM OXALATE 20 MG TABLET PO SCH (21:44)
[2020-11-27] MEDS: LACTULOSE 20 GM/30 ML UDC (FOR ORAL USE ONLY) PO PRN ×2 (06:26→22:05)
[2020-11-27] MEDS: MOXIFLOXACIN HCL 0.5% OPHTHALMIC 3 ML BOTTLE OU SCH ×5 (06:33→22:04)
[2020-11-27 09:01] LABS: BASO % 0.8 % (0-2.0); EOS % 0.4 % (0-4.5); HEMATOCRIT 27.1 % (32.4-45.2); HEMOGLOBIN 9.1 GM/dL (10.7-15.3); LYMPH % 12.8 % (8-40); MCH 27.9 pg (25.7-33.7); MCHC 33.7 g/dl (32.0-36.0); MEAN CELL VOLUME 82.9 fl (80-96); MEAN PLT VOLUME 8.5 fl (7.5-11.1); MONO % 10.4 % (3.8-10.2); NEUT % 75.6 % (42.8-82.8); PLATELET COUNT 113 10^3/uL (134-434); RBC 3.27 M/mm3 (3.60-5.2); WHITE BLOOD COUNT 7.7 K/mm3 (4.0-10.0)
[2020-11-27 09:16] LABS: CALCIUM 8.8 mg/dL (8.5-10.1)
[2020-11-27 09:17] LABS: BLOOD UREA NITROGEN 15.7 mg/dL (7-18); MAGNESIUM 2.3 mg/dL (1.8-2.4)
[2020-11-27 09:20] LABS: CREATININE 1.2 mg/dL (0.55-1.3); PHOSPHOROUS 4.1 mg/dL (2.5-4.9)
[2020-11-27] MEDS: ENOXAPARIN NA (PORCINE) 40 MG/0.4 ML DISP.SYRIN SQ SCH (09:31)
[2020-11-27] MEDS: FOLIC ACID 1 MG TABLET (FP) PO SCH (09:31)
[2020-11-27] MEDS: CYCLOBENZAPRINE HCL 10 MG TABLET (FP) PO SCH ×2 (09:31→22:04)
[2020-11-27] MEDS: BUDESONIDE/FORMETEROL FUMARATE 80/4.5 mcg INHALER IH SCH ×2 (09:32→22:05)
[2020-11-27] MEDS: PANTOPRAZOLE SOD 40 MG SUSPENSION PACKET PO SCH (09:34)
[2020-11-27] MEDS ORDERED: FENTANYL PATCH WASTE MC PRN (17:02)
[2020-11-27] MEDS ORDERED: fentaNYL 100mcg/hr PATCH.TD72 TD SCH (17:15)
[2020-11-27] MEDS: HYDROmorphone HCl 2 MG/ML VIAL IVPB PRN (20:17)
[2020-11-27] MEDS: TRIAMCINOLONE ACET 0.1% OINT 15 GM TUBE TP SCH (22:00)
[2020-11-27] MEDS: MONTELUKAST NA 10 MG TABLET PO SCH (22:04)
[2020-11-27] MEDS: ESCITALOPRAM OXALATE 20 MG TABLET PO SCH (22:05)
[2020-11-28] MEDS: MOXIFLOXACIN HCL 0.5% OPHTHALMIC 3 ML BOTTLE OU SCH ×3 (05:10→16:27)
[2020-11-28] MEDS: TRIAMCINOLONE ACET 0.1% OINT 15 GM TUBE TP SCH ×2 (09:24→21:04)
[2020-11-28] MEDS: FOLIC ACID 1 MG TABLET (FP) PO SCH (09:26)
[2020-11-28] MEDS: FUROSEMIDE 40 MG TABLET (FP) PO SCH (09:26)
[2020-11-28] MEDS: SPIRONOLACTONE 25 MG TABLET PO SCH (09:26)
[2020-11-28] MEDS: PANTOPRAZOLE SOD 40 MG SUSPENSION PACKET PO SCH (09:26)
[2020-11-28] MEDS: CYCLOBENZAPRINE HCL 10 MG TABLET (FP) PO SCH ×2 (09:26→21:09)
[2020-11-28] MEDS: BUDESONIDE/FORMETEROL FUMARATE 80/4.5 mcg INHALER IH SCH ×2 (09:27→21:03)
[2020-11-28 09:39] LABS: EOS % 0.3 % (0-4.5); HEMATOCRIT 26.9 % (32.4-45.2); LYMPH % 12.2 % (8-40); MCH 28.2 pg (25.7-33.7); MCHC 33.5 g/dl (32.0-36.0); MEAN PLT VOLUME 8.7 fl (7.5-11.1); MONO % 8.6 % (3.8-10.2); NEUT % 77.9 % (42.8-82.8); PLATELET COUNT 119 10^3/uL (134-434); RDW 19.9 % (11.6-15.6); WHITE BLOOD COUNT 7.9 K/mm3 (4.0-10.0)
[2020-11-28] MEDS ORDERED: FUROSEMIDE 40 MG/4 ML INJECTABLE VIAL IVPUSH SCH (10:00)
[2020-11-28] MEDS ORDERED: DEXTROSE 5%-WATER - 50 ML IVPB ONE ×3 (10:05→23:51)
[2020-11-28] MEDS ORDERED: PIPERACILLIN/TAZOBACTAM 3.375 GM VIAL IVPB ONE ×3 (10:05→23:51)
[2020-11-28 10:08] LABS: BLOOD UREA NITROGEN 14.5 mg/dL (7-18)
[2020-11-28 10:09] LABS: CALCIUM 9.1 mg/dL (8.5-10.1); MAGNESIUM 2.2 mg/dL (1.8-2.4)
[2020-11-28] MEDS: PIPERACILLIN/TAZOB 3.375 GM 3.375 GM in DEXTROSE 5%-WATER - 50 ML IVPB SCH ×2 (10:10→17:33)
[2020-11-28 10:11] LABS: CREATININE 1.1 mg/dL (0.55-1.3)
[2020-11-28 10:12] LABS: PHOSPHOROUS 4.2 mg/dL (2.5-4.9)
[2020-11-28] MEDS: VANCOMYCIN 1 GRAM (PRE-DOCKED) 1,000 MG/250 ML BAG IVPB SCH ×2 (11:28→21:06)
[2020-11-28] MEDS: HYDROmorphone HCl 2 MG/ML VIAL IVPB PRN (14:01)
[2020-11-28] MEDS: PORTA CATH FLUSH 10 ML IVPUSH PRN (15:51)
[2020-11-28] MEDS ORDERED: FENTANYL PATCH WASTE TD PRN (15:54)
[2020-11-28] MEDS: fentaNYL 100mcg/hr PATCH.TD72 TD SCH (16:45)
[2020-11-28] MEDS: ESCITALOPRAM OXALATE 20 MG TABLET PO SCH (21:09)
[2020-11-28] MEDS: MONTELUKAST NA 10 MG TABLET PO SCH (21:09)
[2020-11-28] MEDS: LACTULOSE 20 GM/30 ML UDC (FOR ORAL USE ONLY) PO PRN (21:09)
[2020-11-29] MEDS: PIPERACILLIN/TAZOB 3.375 GM 3.375 GM in DEXTROSE 5%-WATER - 50 ML IVPB SCH ×3 (01:44→17:46)
[2020-11-29 08:11] LABS: BASO % 0.4 % (0-2.0); EOS % 0.3 % (0-4.5); HEMOGLOBIN 8.5 GM/dL (10.7-15.3); LYMPH % 7.4 % (8-40); MCH 28.2 pg (25.7-33.7); MCHC 33.8 g/dl (32.0-36.0); MEAN CELL VOLUME 83.3 fl (80-96); MEAN PLT VOLUME 8.6 fl (7.5-11.1); MONO % 8.6 % (3.8-10.2); NEUT % 83.3 % (42.8-82.8); PLATELET COUNT 99 10^3/uL (134-434); RDW 20.7 % (11.6-15.6); WHITE BLOOD COUNT 5.8 K/mm3 (4.0-10.0)
[2020-11-29] MEDS ORDERED: DEXTROSE 5%-WATER - 50 ML IVPB ONE ×2 (08:12→16:53)
[2020-11-29] MEDS ORDERED: PIPERACILLIN/TAZOBACTAM 3.375 GM VIAL IVPB ONE ×2 (08:12→16:53)
[2020-11-29 08:22] LABS: BLOOD UREA NITROGEN 16.4 mg/dL (7-18); CALCIUM 8.5 mg/dL (8.5-10.1); MAGNESIUM 2.1 mg/dL (1.8-2.4)
[2020-11-29 08:26] LABS: CREATININE 1.2 mg/dL (0.55-1.3); PHOSPHOROUS 3.6 mg/dL (2.5-4.9)
[2020-11-29] MEDS: TRIAMCINOLONE ACET 0.1% OINT 15 GM TUBE TP SCH (09:14)
[2020-11-29] MEDS: PANTOPRAZOLE SOD 40 MG SUSPENSION PACKET PO SCH (09:16)
[2020-11-29] MEDS: FUROSEMIDE 40 MG TABLET (FP) PO SCH (09:16)
[2020-11-29] MEDS: CYCLOBENZAPRINE HCL 10 MG TABLET (FP) PO SCH ×2 (09:16→21:44)
[2020-11-29] MEDS: FOLIC ACID 1 MG TABLET (FP) PO SCH (09:16)
[2020-11-29] MEDS: SPIRONOLACTONE 25 MG TABLET PO SCH (09:17)
[2020-11-29] MEDS: ENOXAPARIN NA (PORCINE) 40 MG/0.4 ML DISP.SYRIN SQ SCH (09:17)
[2020-11-29] MEDS: BUDESONIDE/FORMETEROL FUMARATE 80/4.5 mcg INHALER IH SCH ×2 (09:18→21:47)
[2020-11-29 09:31] LABS: ANISOCYTOSIS 2+; MACROCYTOSIS 0; PLATELET ESTIMATE DECREASED
[2020-11-29] MEDS: HYDROmorphone HCl 2 MG/ML VIAL IVPB PRN ×2 (10:34→17:18)
[2020-11-29] MEDS: VANCOMYCIN 1 GRAM (PRE-DOCKED) 1,000 MG/250 ML BAG IVPB SCH ×2 (11:15→21:45)
[2020-11-29] MEDS: PORTA CATH FLUSH 10 ML IVPUSH PRN (18:00)
[2020-11-29] MEDS: MONTELUKAST NA 10 MG TABLET PO SCH (21:44)
[2020-11-29] MEDS: ESCITALOPRAM OXALATE 20 MG TABLET PO SCH (21:44)
[2020-11-30] MEDS ORDERED: PIPERACILLIN/TAZOBACTAM 3.375 GM VIAL IVPB ONE ×2 (00:02→10:44)
[2020-11-30] MEDS ORDERED: DEXTROSE 5%-WATER - 50 ML IVPB ONE ×2 (00:02→10:44)
[2020-11-30] MEDS: PIPERACILLIN/TAZOB 3.375 GM 3.375 GM in DEXTROSE 5%-WATER - 50 ML IVPB SCH ×3 (01:14→19:30)
[2020-11-30 08:06] LABS: BASO % 1.1 % (0-2.0); EOS % 0.3 % (0-4.5); HEMATOCRIT 24.2 % (32.4-45.2); HEMOGLOBIN 8.2 GM/dL (10.7-15.3); LYMPH % 11.1 % (8-40); MCH 27.8 pg (25.7-33.7); MCHC 33.6 g/dl (32.0-36.0); MEAN CELL VOLUME 82.5 fl (80-96); MEAN PLT VOLUME 8.6 fl (7.5-11.1); NEUT % 73.5 % (42.8-82.8); PLATELET COUNT 89 10^3/uL (134-434); RBC 2.94 M/mm3 (3.60-5.2); RDW 19.7 % (11.6-15.6); WHITE BLOOD COUNT 3.9 K/mm3 (4.0-10.0)
[2020-11-30 09:02] LABS: BLOOD UREA NITROGEN 16.8 mg/dL (7-18); CALCIUM 8.6 mg/dL (8.5-10.1); CREATININE 1.3 mg/dL (0.55-1.3); MAGNESIUM 2.2 mg/dL (1.8-2.4); PHOSPHOROUS 3.7 mg/dL (2.5-4.9)
[2020-11-30] MEDS: PANTOPRAZOLE SOD 40 MG SUSPENSION PACKET PO SCH (10:51)
[2020-11-30] MEDS: SPIRONOLACTONE 25 MG TABLET PO SCH (10:51)
[2020-11-30] MEDS: CYCLOBENZAPRINE HCL 10 MG TABLET (FP) PO SCH (10:51)
[2020-11-30] MEDS: FUROSEMIDE 40 MG TABLET (FP) PO SCH (10:51)
[2020-11-30] MEDS: FOLIC ACID 1 MG TABLET (FP) PO SCH (10:51)
[2020-11-30] MEDS: BUDESONIDE/FORMETEROL FUMARATE 80/4.5 mcg INHALER IH SCH (10:52)
[2020-11-30] MEDS: ENOXAPARIN NA (PORCINE) 40 MG/0.4 ML DISP.SYRIN SQ SCH (10:53)
[2020-11-30] MEDS: VANCOMYCIN 1 GRAM (PRE-DOCKED) 1,000 MG/250 ML BAG IVPB SCH (12:32)
[2020-11-30 14:19] VITALS: BP 102/35; PULSE 84; TEMP 98.3
[2020-11-30] MEDS: TRIAMCINOLONE ACET 0.1% OINT 15 GM TUBE TP SCH (17:34)
[2020-11-30] MEDS ORDERED: LACTULOSE 20 GM/30 ML UDC (FOR ORAL USE ONLY) PO SCH (22:00)
== END 2020-11-30 18:00 | disposition home or self-care (01) | DRG 603 ==
LOC: JER 16:10 → JERBED 18:52 → J7W 20:51
PROVIDERS: ADMIT Internal Medicine; ATTEND Internal Medicine
DX: L03.116 Cellulitis of left lower limb (principal); C78.7 Secondary malignant neoplasm of liver and intrahepatic bile duct; C78.00 Secondary malignant neoplasm of unspecified lung; F11.20 Opioid dependence, uncomplicated; N17.9 Acute kidney failure, unspecified; D70.9 Neutropenia, unspecified; E78.5 Hyperlipidemia, unspecified; K21.9 Gastro-esophageal reflux disease without esophagitis; L40.50 Arthropathic psoriasis, unspecified; K76.0 Fatty (change of) liver, not elsewhere classified; F41.8 Other specified anxiety disorders; D70.1 Agranulocytosis secondary to cancer chemotherapy; E11.51 Type 2 diabetes mellitus with diabetic peripheral angiopathy without gangrene; C50.919 Malignant neoplasm of unspecified site of unspecified female breast; T45.1X5A Adverse effect of antineoplastic and immunosuppressive drugs, initial encounter; D64.81 Anemia due to antineoplastic chemotherapy; I10 Essential (primary) hypertension; D69.6 Thrombocytopenia, unspecified; K74.60 Unspecified cirrhosis of liver; G43.909 Migraine, unspecified, not intractable, without status migrainosus; J44.9 Chronic obstructive pulmonary disease, unspecified; M54.5 Low back pain; E66.9 Obesity, unspecified; Z68.34 Body mass index [BMI] 34.0-34.9, adult
CPT/HCPCS: 36415; 71045-TC-FY; 71260-TC; 74177-TC; 76775-TC; 80048; 80053; 80076; 81003; 82436; 82570; 83735; 84100; 84133; 84300; 84550; 85025; 87040; 87086; 93005; 93010; 93306-TC; 93970-TC; 97116-GP; 97162-GP; 99281-25; 99285-25; C9803; G0480; J0131; J1447; P9047; Q9967; U0003; U0005

== ENCOUNTER 2020-12-03 06:56 | Day surgery (SDC) | payer OTHER ==
[~2020-12-03 06:56] MED LIST changes: -PEMBROLIZUMAB 200 MG in SODIUM CHLORIDE 50 ML IV ONE; -PEMBROLIZUMAB IV ONE; -SODIUM CHLORIDE IV ONE
[2020-12-03] MEDS ORDERED: ONDANSETRON INJECTION 8 MG in SODIUM CHLORIDE 50 ML IVPB ONE (09:30)
[2020-12-03 10:00] LABS: BASO % 1.3 % (0-2.0); HEMATOCRIT 21.3 % (32.4-45.2); HEMOGLOBIN 7.2 GM/dL (10.7-15.3); LYMPH % 19.6 % (8-40); MCH 27.9 pg (25.7-33.7); MEAN PLT VOLUME 7.9 fl (7.5-11.1); MONO % 14.7 % (3.8-10.2); NEUT % 63.4 % (42.8-82.8); PLATELET COUNT 74 10^3/uL (134-434); RDW 21.6 % (11.6-15.6); WHITE BLOOD COUNT 3.4 K/mm3 (4.0-10.0)
[2020-12-03] MEDS ORDERED: PACLITAXEL PROTEIN BOUND IVPB ONE (10:00)
[2020-12-03] MEDS ORDERED: SODIUM CHLORIDE IVPB ONE (10:00)
[2020-12-03 10:13] LABS: BLOOD UREA NITROGEN 17.4 mg/dL (7-18); CALCIUM 7.9 mg/dL (8.5-10.1)
[2020-12-03 10:15] LABS: BILIRUBIN,DIRECT 0.4 mg/dL (0.0-0.2)
[2020-12-03 10:16] LABS: CREATININE 1.3 mg/dL (0.55-1.3)
[2020-12-03 10:17] LABS: BILIRUBIN,TOTAL 1.1 mg/dL (0.2-1); TOT PROT 6.4 g/dl (6.4-8.2)
[2020-12-03 10:42] LABS: ANISOCYTOSIS 2+; MACROCYTOSIS 1+; OVALOCYTE 1+; PLATELET ESTIMATE DECREASED; TEAR DROP CELLS 1+
[2020-12-03 16:30] VITALS: BP 100/57; PULSE 75; TEMP 98.6
== END 2020-12-03 16:35 | disposition home or self-care (01) ==
LOC: JONCCHEMO 06:56
PROVIDERS: ATTEND Internal Medicine Hematology & Oncology
PROC: 30233N1 Transfusion of Nonautologous Red Blood Cells into Peripheral Vein, Percutaneous Approach (ICD-10-PCS; principal; 2020-12-03)
DX: C50.812 Malignant neoplasm of overlapping sites of left female breast (principal); D64.9 Anemia, unspecified
CPT/HCPCS: 36415; 36430; 80048; 80076; 85025; 86850; 86900; 86901; 86922; P9058

== ENCOUNTER 2020-12-10 07:34 | Day surgery (SDC) | payer OTHER ==
[2020-12-10 09:40] LABS: BASO % 1.1 % (0-2.0); EOS % 3.1 % (0-4.5); HEMOGLOBIN 10.1 GM/dL (10.7-15.3); LYMPH % 22.1 % (8-40); MCH 27.9 pg (25.7-33.7); MCHC 33.7 g/dl (32.0-36.0); MEAN CELL VOLUME 82.9 fl (80-96); MEAN PLT VOLUME 8.1 fl (7.5-11.1); MONO % 13.1 % (3.8-10.2); NEUT % 60.6 % (42.8-82.8); PLATELET COUNT 163 10^3/uL (134-434); RBC 3.61 M/mm3 (3.60-5.2); RDW 20.3 % (11.6-15.6); WHITE BLOOD COUNT 4.8 K/mm3 (4.0-10.0)
[2020-12-10 10:05] LABS: ALBUMIN 3.2 g/dl (3.4-5.0); BLOOD UREA NITROGEN 11.1 mg/dL (7-18)
[2020-12-10 10:09] LABS: BILIRUBIN,TOTAL 1.2 mg/dL (0.2-1); CREATININE 1.1 mg/dL (0.55-1.3)
[2020-12-10 10:11] LABS: TOT PROT 6.8 g/dl (6.4-8.2)
[2020-12-10] MEDS ORDERED: ONDANSETRON INJECTION 8 MG in SODIUM CHLORIDE 50 ML IVPB ONE (11:00)
[2020-12-10] MEDS ORDERED: PACLITAXEL PROTEIN BOUND IVPB ONE (11:30)
[2020-12-10] MEDS ORDERED: SODIUM CHLORIDE IVPB ONE (11:30)
[2020-12-10 17:06] VITALS: TEMP 98.3
[2020-12-10 17:07] VITALS: BP 114/42; PULSE 68
== END 2020-12-10 13:45 | disposition home or self-care (01) ==
LOC: JONCCHEMO 07:34
PROVIDERS: ATTEND Internal Medicine Hematology & Oncology
DX: Z51.11 Encounter for antineoplastic chemotherapy (principal); C50.812 Malignant neoplasm of overlapping sites of left female breast
CPT/HCPCS: 36415; 80053; 85025; 96375; 96413; J2405; J9264

== ENCOUNTER 2020-12-17 08:03 | Day surgery (SDC) | payer OTHER ==
[2020-12-17 10:12] LABS: BASO % 0.9 % (0-2.0); EOS % 3.2 % (0-4.5); HEMATOCRIT 27.3 % (32.4-45.2); HEMOGLOBIN 9.1 GM/dL (10.7-15.3); LYMPH % 30.9 % (8-40); MCH 27.6 pg (25.7-33.7); MCHC 33.3 g/dl (32.0-36.0); MEAN CELL VOLUME 82.7 fl (80-96); MEAN PLT VOLUME 8.4 fl (7.5-11.1); PLATELET COUNT 114 10^3/uL (134-434); RDW 19.3 % (11.6-15.6); WHITE BLOOD COUNT 2.8 K/mm3 (4.0-10.0)
[2020-12-17 10:44] LABS: ALBUMIN 3.2 g/dl (3.4-5.0)
[2020-12-17 10:54] LABS: BILIRUBIN,TOTAL 1.6 mg/dL (0.2-1); BLOOD UREA NITROGEN 10.2 mg/dL (7-18); CALCIUM 9.1 mg/dL (8.5-10.1); TOT PROT 6.8 g/dl (6.4-8.2)
[2020-12-17] MEDS ORDERED: ONDANSETRON INJECTION 8 MG in SODIUM CHLORIDE 50 ML IVPB ONE (11:00)
[2020-12-17] MEDS ORDERED: PACLITAXEL PROTEIN-BOUND 155 MG in SODIUM CHLORIDE 31 ML IVPB ONE (11:30)
[2020-12-17 17:39] VITALS: BP 137/77; PULSE 78; TEMP 98.4
[2020-12-17] MEDS ORDERED: PORTA CATH FLUSH 10 ML IVPUSH ONE (17:39)
== END 2020-12-17 13:45 | disposition home or self-care (01) ==
LOC: JONCCHEMO 08:03
PROVIDERS: ATTEND Internal Medicine Hematology & Oncology
PROC: 3E04305 Introduction of Other Antineoplastic into Central Vein, Percutaneous Approach (ICD-10-PCS; principal; 2020-12-17)
PROC: 3E043GC Introduction of Other Therapeutic Substance into Central Vein, Percutaneous Approach (ICD-10-PCS; 2020-12-17)
DX: Z51.11 Encounter for antineoplastic chemotherapy (principal); C50.112 Malignant neoplasm of central portion of left female breast; Z17.0 Estrogen receptor positive status [ER+]; C50.212 Malignant neoplasm of upper-inner quadrant of left female breast; Z17.1 Estrogen receptor negative status [ER-]; K74.60 Unspecified cirrhosis of liver; E11.9 Type 2 diabetes mellitus without complications; I10 Essential (primary) hypertension; G47.30 Sleep apnea, unspecified
CPT/HCPCS: 36415; 80053; 85025; 96375; 96413; J9264

== ENCOUNTER 2020-12-24 07:49 | Day surgery (SDC) | payer OTHER ==
[2020-12-24 10:05] LABS: HEMATOCRIT 29.1 % (32.4-45.2); MCH 28.2 pg (25.7-33.7); MCHC 34.3 g/dl (32.0-36.0); MEAN CELL VOLUME 82.1 fl (80-96); MEAN PLT VOLUME 8.8 fl (7.5-11.1); RBC 3.54 M/mm3 (3.60-5.2); RDW 20.4 % (11.6-15.6); WHITE BLOOD COUNT 2.4 K/mm3 (4.0-10.0)
[2020-12-24 10:24] LABS: ALBUMIN 3.7 g/dl (3.4-5.0)
[2020-12-24 10:25] LABS: BLOOD UREA NITROGEN 15.4 mg/dL (7-18)
[2020-12-24 10:28] LABS: CREATININE 1.3 mg/dL (0.55-1.3)
[2020-12-24 10:29] LABS: BILIRUBIN,TOTAL 1.2 mg/dL (0.2-1); TOT PROT 7.4 g/dl (6.4-8.2)
[2020-12-24] MEDS ORDERED: ONDANSETRON INJECTION 8 MG in SODIUM CHLORIDE 50 ML IVPB ONE (10:30)
[2020-12-24] MEDS ORDERED: PACLITAXEL PROTEIN-BOUND 155 MG in SODIUM CHLORIDE 31 ML IVPB ONE (11:00)
[2020-12-24 12:08] LABS: ANISOCYTOSIS 2+; MACROCYTOSIS 1+; PLATELET ESTIMATE NORMAL
[2020-12-24 12:17] LABS: PLATELET COUNT 286 10^3/uL (134-434)
[2020-12-24 15:09] VITALS: TEMP 98
[2020-12-24 15:12] VITALS: BP 131/56; PULSE 77
== END 2020-12-24 14:35 | disposition home or self-care (01) ==
LOC: JONCCHEMO 07:49
PROVIDERS: ATTEND Internal Medicine Hematology & Oncology
PROC: 3E04305 Introduction of Other Antineoplastic into Central Vein, Percutaneous Approach (ICD-10-PCS; principal; 2020-12-24)
PROC: 3E043GC Introduction of Other Therapeutic Substance into Central Vein, Percutaneous Approach (ICD-10-PCS; 2020-12-24)
DX: Z51.11 Encounter for antineoplastic chemotherapy (principal); C50.112 Malignant neoplasm of central portion of left female breast; Z17.0 Estrogen receptor positive status [ER+]
CPT/HCPCS: 36415; 80053; 85025; 96375; 96413; J9264

== ENCOUNTER 2020-12-25 11:17 | Day surgery (SDC) | payer OTHER ==
[2020-12-25] MEDS ORDERED: TBO-FILGRASTIM 480 MCG/0.8 ML DISP.SYRIN SQ ONE (11:45)
[2020-12-25 15:46] VITALS: BP 106/61; PULSE 64; TEMP 98.2
== END 2020-12-25 12:15 | disposition home or self-care (01) ==
LOC: JONCCHEMO 11:17
PROVIDERS: ATTEND Internal Medicine Hematology & Oncology
PROC: 3E013GC Introduction of Other Therapeutic Substance into Subcutaneous Tissue, Percutaneous Approach (ICD-10-PCS; principal; 2020-12-25)
DX: C50.812 Malignant neoplasm of overlapping sites of left female breast (principal); Z76.89 Persons encountering health services in other specified circumstances
CPT/HCPCS: 96372; J1447

== ENCOUNTER 2020-12-28 12:26 | Emergency (ER) | payer OTHER ==
[2020-12-28 13:11] VITALS: BP 113/54; PULSE 71; TEMP 98.6; BMI 31.9
== END 2020-12-28 13:34 | disposition home or self-care (01) ==
LOC: JERFT 12:26
DX: H57.12 Ocular pain, left eye (principal)
CPT/HCPCS: 99283-25

== ENCOUNTER 2020-12-28 13:55 | Day surgery (SDC) | payer OTHER ==
[2020-12-28] MEDS ORDERED: TBO-FILGRASTIM 480 MCG/0.8 ML DISP.SYRIN SQ ONE (14:15)
[2020-12-28] MEDS ORDERED: TBO-FILGRASTIM 480 MCG/0.8 ML DISP.SYRIN SQ SCH (14:15)
[2020-12-28 16:36] VITALS: BP 94/64; PULSE 63; TEMP 98.3
== END 2020-12-28 14:30 | disposition home or self-care (01) ==
LOC: JONCCHEMO 13:55
PROVIDERS: ATTEND Internal Medicine Hematology & Oncology
PROC: 3E013GC Introduction of Other Therapeutic Substance into Subcutaneous Tissue, Percutaneous Approach (ICD-10-PCS; principal; 2020-12-28)
DX: C50.812 Malignant neoplasm of overlapping sites of left female breast (principal); Z76.89 Persons encountering health services in other specified circumstances
CPT/HCPCS: 96372; J1447

== ENCOUNTER 2020-12-31 07:31 | Day surgery (SDC) | payer OTHER ==
[2020-12-31] MEDS ORDERED: ONDANSETRON INJECTION 8 MG in SODIUM CHLORIDE 50 ML IVPB ONE (10:00)
[2020-12-31 10:11] LABS: HEMATOCRIT 29.3 % (32.4-45.2); HEMOGLOBIN 9.9 GM/dL (10.7-15.3); MCH 28.1 pg (25.7-33.7); MCHC 33.9 g/dl (32.0-36.0); MEAN CELL VOLUME 82.9 fl (80-96); MEAN PLT VOLUME 8.1 fl (7.5-11.1); PLATELET COUNT 127 10^3/uL (134-434); RBC 3.54 M/mm3 (3.60-5.2); RDW 20.9 % (11.6-15.6); WHITE BLOOD COUNT 3.6 K/mm3 (4.0-10.0)
[2020-12-31 10:27] LABS: ALBUMIN 3.4 g/dl (3.4-5.0); CALCIUM 8.9 mg/dL (8.5-10.1)
[2020-12-31] MEDS ORDERED: PACLITAXEL PROTEIN-BOUND 155 MG in SODIUM CHLORIDE 31 ML IVPB ONE (10:30)
[2020-12-31 10:31] LABS: CREATININE 1.1 mg/dL (0.55-1.3)
[2020-12-31 10:32] LABS: BILIRUBIN,TOTAL 0.9 mg/dL (0.2-1)
[2020-12-31 11:32] LABS: ANISOCYTOSIS 1+; MACROCYTOSIS 0; OVALOCYTE 1+; PLATELET ESTIMATE DECREASED; TEAR DROP CELLS 1+
[2020-12-31 16:45] VITALS: BP 142/62; PULSE 68; TEMP 98.2
[2020-12-31] MEDS ORDERED: PORTA CATH FLUSH 10 ML IVPUSH ONE (16:45)
== END 2020-12-31 13:30 | disposition home or self-care (01) ==
LOC: JONCCHEMO 07:31
PROVIDERS: ATTEND Internal Medicine Hematology & Oncology
DX: Z51.11 Encounter for antineoplastic chemotherapy (principal); C50.812 Malignant neoplasm of overlapping sites of left female breast
CPT/HCPCS: 36415; 80053; 85025; 86300; 96375; 96413; J9264

== ENCOUNTER 2021-01-07 07:52 | Day surgery (SDC) | payer OTHER ==
[2021-01-07 09:56] LABS: BASO % 1.3 % (0-2.0); EOS % 0.7 % (0-4.5); HEMATOCRIT 28.2 % (32.4-45.2); HEMOGLOBIN 9.6 GM/dL (10.7-15.3); LYMPH % 38.6 % (8-40); MCH 28.5 pg (25.7-33.7); MCHC 33.9 g/dl (32.0-36.0); MEAN PLT VOLUME 8.3 fl (7.5-11.1); MONO % 7.4 % (3.8-10.2); PLATELET COUNT 111 10^3/uL (134-434); RBC 3.36 M/mm3 (3.60-5.2); RDW 21.9 % (11.6-15.6); WHITE BLOOD COUNT 2.4 K/mm3 (4.0-10.0)
[2021-01-07] MEDS ORDERED: ONDANSETRON INJECTION 8 MG in SODIUM CHLORIDE 50 ML IVPB ONE (10:00)
[2021-01-07 10:16] LABS: ALBUMIN 3.3 g/dl (3.4-5.0); BLOOD UREA NITROGEN 8.9 mg/dL (7-18)
[2021-01-07 10:19] LABS: CREATININE 0.9 mg/dL (0.55-1.3)
[2021-01-07 10:21] LABS: TOT PROT 6.6 g/dl (6.4-8.2)
[2021-01-07] MEDS ORDERED: SODIUM CHLORIDE IVPB ONE (10:30)
[2021-01-07] MEDS ORDERED: PACLITAXEL PROTEIN BOUND IVPB ONE (10:30)
[2021-01-07 11:13] LABS: ANISOCYTOSIS 1+; MACROCYTOSIS 1+; OVALOCYTE 1+; PLATELET ESTIMATE DECREASED
[2021-01-07] MEDS ORDERED: PACLITAXEL PROTEIN-BOUND 155 MG in SODIUM CHLORIDE 31 ML IVPB ONE (11:45)
[2021-01-07] MEDS ORDERED: PORTA CATH FLUSH 10 ML IVPUSH ONE (16:29)
[2021-01-07 16:30] VITALS: BP 146/68; PULSE 70; TEMP 99.3
== END 2021-01-07 12:45 | disposition home or self-care (01) ==
LOC: JONCCHEMO 07:52
PROVIDERS: ATTEND Internal Medicine Hematology & Oncology
DX: Z51.11 Encounter for antineoplastic chemotherapy (principal); C50.812 Malignant neoplasm of overlapping sites of left female breast
CPT/HCPCS: 36415; 80053; 85025; 96375; 96413; J9264

== ENCOUNTER 2021-01-14 07:49 | Day surgery (SDC) | payer OTHER ==
[2021-01-14 10:01] LABS: HEMATOCRIT 34.5 % (32.4-45.2); HEMOGLOBIN 11.4 GM/dL (10.7-15.3); MCH 28.1 pg (25.7-33.7); MCHC 33.1 g/dl (32.0-36.0); MEAN CELL VOLUME 84.9 fl (80-96); MEAN PLT VOLUME 8.8 fl (7.5-11.1); PLATELET COUNT 175 10^3/uL (134-434); RBC 4.07 M/mm3 (3.60-5.2); RDW 21.8 % (11.6-15.6); WHITE BLOOD COUNT 9.4 K/mm3 (4.0-10.0)
[2021-01-14 10:19] LABS: ALBUMIN 3.7 g/dl (3.4-5.0); CALCIUM 9.5 mg/dL (8.5-10.1)
[2021-01-14 10:20] LABS: BLOOD UREA NITROGEN 8.9 mg/dL (7-18)
[2021-01-14 10:23] LABS: CREATININE 1.1 mg/dL (0.55-1.3)
[2021-01-14 10:24] LABS: BILIRUBIN,TOTAL 0.8 mg/dL (0.2-1); TOT PROT 7.4 g/dl (6.4-8.2)
[2021-01-14 11:24] LABS: ANISOCYTOSIS 1+; MACROCYTOSIS 0; PLATELET ESTIMATE DECREASED
[2021-01-14] MEDS ORDERED: ONDANSETRON INJECTION 8 MG in SODIUM CHLORIDE 50 ML IVPB ONE (12:00)
[2021-01-14] MEDS ORDERED: PACLITAXEL PROTEIN-BOUND 155 MG in SODIUM CHLORIDE 31 ML IVPB ONE (12:30)
[2021-01-14] MEDS ORDERED: PEMBROLIZUMAB 200 MG in SODIUM CHLORIDE 50 ML IVPB ONE (13:00)
[2021-01-14 17:12] VITALS: TEMP 98.8
[2021-01-14 17:13] VITALS: BP 124/70; PULSE 64
== END 2021-01-14 14:15 | disposition home or self-care (01) ==
LOC: JONCCHEMO 07:49
PROVIDERS: ATTEND Internal Medicine Hematology & Oncology
DX: Z51.11 Encounter for antineoplastic chemotherapy (principal); C50.812 Malignant neoplasm of overlapping sites of left female breast; C78.00 Secondary malignant neoplasm of unspecified lung; L40.50 Arthropathic psoriasis, unspecified; E11.9 Type 2 diabetes mellitus without complications; I10 Essential (primary) hypertension
CPT/HCPCS: 36415; 80053; 83615; 85025; 96375; 96413; 96417; J9264; J9271

== ENCOUNTER 2021-02-04 07:21 | Day surgery (SDC) | payer OTHER ==
[2021-01-21 12:24] LABS: BASO % 1.4 % (0-2.0); EOS % 0.8 % (0-4.5); HEMATOCRIT 31.8 % (32.4-45.2); HEMOGLOBIN 10.7 GM/dL (10.7-15.3); LYMPH % 39.4 % (8-40); MCH 28.1 pg (25.7-33.7); MCHC 33.8 g/dl (32.0-36.0); MEAN CELL VOLUME 83.2 fl (80-96); MEAN PLT VOLUME 9.3 fl (7.5-11.1); NEUT % 53.4 % (42.8-82.8); PLATELET COUNT 148 10^3/uL (134-434); RBC 3.82 M/mm3 (3.60-5.2); RDW 20.7 % (11.6-15.6); WHITE BLOOD COUNT 2.8 K/mm3 (4.0-10.0)
[2021-01-21 12:54] LABS: BLOOD UREA NITROGEN 13.4 mg/dL (7-18); CALCIUM 9.4 mg/dL (8.5-10.1)
[2021-01-21 12:55] LABS: ALBUMIN 3.7 g/dl (3.4-5.0)
[2021-01-21 12:58] LABS: CREATININE 0.9 mg/dL (0.55-1.3)
[2021-01-21 12:59] LABS: BILIRUBIN,TOTAL 0.9 mg/dL (0.2-1)
[2021-01-21 15:01] LABS: ANISOCYTOSIS 1+; MACROCYTOSIS 0; OVALOCYTE 1+; PLATELET ESTIMATE DECREASED; TEAR DROP CELLS 1+
[~2021-02-04 07:21] MED LIST changes: -PACLITAXEL PROTEIN BOUND IVPB ONE; +PACLITAXEL PROTEIN-BOUND 155 MG in SODIUM CHLORIDE 31 ML IVPB ONE; -SODIUM CHLORIDE IVPB ONE
[2021-02-04] MEDS ORDERED: ONDANSETRON INJECTION 8 MG in SODIUM CHLORIDE 50 ML IVPB ONE (09:30)
[2021-02-04] MEDS ORDERED: PEMBROLIZUMAB 200 MG in SODIUM CHLORIDE 50 ML IVPB ONE (10:00)
[2021-02-04 10:12] LABS: BASO % 0.2 % (0-2.0); HEMATOCRIT 30.5 % (32.4-45.2); HEMOGLOBIN 10.3 GM/dL (10.7-15.3); LYMPH % 8.4 % (8-40); MCH 27.8 pg (25.7-33.7); MCHC 33.8 g/dl (32.0-36.0); MEAN CELL VOLUME 82.3 fl (80-96); MEAN PLT VOLUME 8.3 fl (7.5-11.1); MONO % 4.8 % (3.8-10.2); NEUT % 86.6 % (42.8-82.8); PLATELET COUNT 108 10^3/uL (134-434); RDW 20.4 % (11.6-15.6)
[2021-02-04 10:24] LABS: CALCIUM 8.7 mg/dL (8.5-10.1)
[2021-02-04 10:25] LABS: BLOOD UREA NITROGEN 12.7 mg/dL (7-18)
[2021-02-04 10:28] LABS: CREATININE 0.8 mg/dL (0.55-1.3)
[2021-02-04 10:30] LABS: BILIRUBIN,TOTAL 0.7 mg/dL (0.2-1); TOT PROT 6.5 g/dl (6.4-8.2)
[2021-02-04] MEDS ORDERED: PACLITAXEL PROTEIN-BOUND 155 MG in SODIUM CHLORIDE 31 ML IVPB ONE (10:30)
[2021-02-04 15:37] VITALS: TEMP 98.3
[2021-02-04 15:38] VITALS: BP 131/71; PULSE 84
== END 2021-02-04 13:20 | disposition home or self-care (01) ==
LOC: JONCCHEMO 07:21
PROVIDERS: ATTEND Internal Medicine Hematology & Oncology
DX: Z51.11 Encounter for antineoplastic chemotherapy (principal); C50.812 Malignant neoplasm of overlapping sites of left female breast; C78.00 Secondary malignant neoplasm of unspecified lung; L40.50 Arthropathic psoriasis, unspecified; E11.9 Type 2 diabetes mellitus without complications; I10 Essential (primary) hypertension
CPT/HCPCS: 36415; 80053; 83735; 85025; 96375; 96413; 96417; J9264; J9271

== ENCOUNTER 2021-02-05 08:33 | Emergency (ER) | payer OTHER ==
[2021-02-05 09:06] VITALS: BP 140/68; PULSE 68; TEMP 98.4
== END 2021-02-05 10:45 | disposition home or self-care (01) ==
LOC: JERFT 08:33
DX: H57.12 Ocular pain, left eye (principal)
CPT/HCPCS: 99283-25

== ENCOUNTER → 2021-02-11 | Day surgery (SDC) | payer OTHER ==
[2021-02-11 14:31] LABS: BASO % 0.7 % (0-2.0); EOS % 0.5 % (0-4.5); HEMOGLOBIN 10.3 GM/dL (10.7-15.3); LYMPH % 14.8 % (8-40); MCH 28.1 pg (25.7-33.7); MCHC 34.3 g/dl (32.0-36.0); MEAN PLT VOLUME 8.5 fl (7.5-11.1); MONO % 6.5 % (3.8-10.2); NEUT % 77.5 % (42.8-82.8); PLATELET COUNT 162 10^3/uL (134-434); RBC 3.66 M/mm3 (3.60-5.2); RDW 20.1 % (11.6-15.6); WHITE BLOOD COUNT 6.2 K/mm3 (4.0-10.0)
[2021-02-11 15:01] LABS: CALCIUM 9.1 mg/dL (8.5-10.1)
[2021-02-11 15:02] LABS: ALBUMIN 3.4 g/dl (3.4-5.0); BLOOD UREA NITROGEN 15.6 mg/dL (7-18)
[2021-02-11 15:05] LABS: CREATININE 0.8 mg/dL (0.55-1.3)
[2021-02-11 15:06] LABS: BILIRUBIN,TOTAL 0.8 mg/dL (0.2-1)
[2021-02-11 15:07] LABS: TOT PROT 6.9 g/dl (6.4-8.2)
== END | disposition home or self-care (01) ==
LOC: JONCCHEMO 08:14
PROVIDERS: ATTEND Internal Medicine Hematology & Oncology
DX: Z53.8 Procedure and treatment not carried out for other reasons (principal)
CPT/HCPCS: 36415; 80053; 84439; 84443; 85025; 86300

== ENCOUNTER 2021-02-18 08:14 | Day surgery (SDC) | payer OTHER ==
[2021-02-18] MEDS ORDERED: ONDANSETRON INJECTION 8 MG in SODIUM CHLORIDE 50 ML IVPB ONE (10:00)
[2021-02-18] MEDS ORDERED: PACLITAXEL PROTEIN-BOUND 155 MG in SODIUM CHLORIDE 31 ML IVPB ONE (10:30)
[2021-02-18 15:40] LABS: BASO % 2.8 % (0-2.0); EOS % 1.9 % (0-4.5); HEMATOCRIT 34.9 % (32.4-45.2); HEMOGLOBIN 11.9 GM/dL (10.7-15.3); LYMPH % 19.8 % (8-40); MCH 27.4 pg (25.7-33.7); MCHC 34.1 g/dl (32.0-36.0); MEAN CELL VOLUME 80.3 fl (80-96); MEAN PLT VOLUME 7.9 fl (7.5-11.1); MONO % 16.2 % (3.8-10.2); NEUT % 59.3 % (42.8-82.8); PLATELET COUNT 229 10^3/uL (134-434); RBC 4.35 M/mm3 (3.60-5.2); RDW 19.9 % (11.6-15.6); WHITE BLOOD COUNT 5.9 K/mm3 (4.0-10.0)
[2021-02-18 15:59] LABS: CALCIUM 9.3 mg/dL (8.5-10.1)
[2021-02-18 16:01] LABS: ALBUMIN 3.6 g/dl (3.4-5.0); BLOOD UREA NITROGEN 15.1 mg/dL (7-18)
[2021-02-18 16:03] LABS: CREATININE 0.9 mg/dL (0.55-1.3)
[2021-02-18 16:05] LABS: BILIRUBIN,TOTAL 0.8 mg/dL (0.2-1); TOT PROT 7.2 g/dl (6.4-8.2)
[2021-02-18 17:13] VITALS: TEMP 98.6
[2021-02-18 18:02] VITALS: BP 139/74; PULSE 72
== END 2021-02-18 18:10 | disposition home or self-care (01) ==
LOC: JONCCHEMO 08:14
PROVIDERS: ATTEND Internal Medicine Hematology & Oncology
DX: Z51.11 Encounter for antineoplastic chemotherapy (principal); C50.812 Malignant neoplasm of overlapping sites of left female breast; C78.00 Secondary malignant neoplasm of unspecified lung; L40.50 Arthropathic psoriasis, unspecified; E11.9 Type 2 diabetes mellitus without complications; I10 Essential (primary) hypertension
CPT/HCPCS: 36415; 80053; 85025; 96375; 96413; J2405; J9264

== ENCOUNTER 2021-02-25 07:34 | Day surgery (SDC) | payer OTHER ==
[2021-02-25] MEDS ORDERED: ONDANSETRON INJECTION 8 MG in SODIUM CHLORIDE 50 ML IVPB ONE (10:00)
[2021-02-25] MEDS ORDERED: PEMBROLIZUMAB 200 MG in SODIUM CHLORIDE 50 ML IV ONE (10:30)
[2021-02-25] MEDS ORDERED: PACLITAXEL PROTEIN-BOUND 155 MG in SODIUM CHLORIDE 31 ML IVPB ONE (11:00)
[2021-02-25 11:15] LABS: BASO % 1.5 % (0-2.0); EOS % 1.1 % (0-4.5); HEMATOCRIT 34.6 % (32.4-45.2); HEMOGLOBIN 11.6 GM/dL (10.7-15.3); LYMPH % 25.5 % (8-40); MCH 27.4 pg (25.7-33.7); MCHC 33.6 g/dl (32.0-36.0); MEAN CELL VOLUME 81.4 fl (80-96); MEAN PLT VOLUME 8.1 fl (7.5-11.1); MONO % 4.3 % (3.8-10.2); NEUT % 67.6 % (42.8-82.8); PLATELET COUNT 166 10^3/uL (134-434); RBC 4.25 M/mm3 (3.60-5.2); RDW 19.2 % (11.6-15.6); WHITE BLOOD COUNT 7.8 K/mm3 (4.0-10.0)
[2021-02-25 11:42] LABS: CALCIUM 9.2 mg/dL (8.5-10.1)
[2021-02-25 11:43] LABS: ALBUMIN 3.5 g/dl (3.4-5.0); BLOOD UREA NITROGEN 17.7 mg/dL (7-18)
[2021-02-25 11:48] LABS: TOT PROT 6.7 g/dl (6.4-8.2)
[2021-02-25 18:19] VITALS: BP 127/63; PULSE 66; TEMP 98.8
[2021-02-25] MEDS ORDERED: PORTA CATH FLUSH 10 ML IVPUSH ONE (18:19)
== END 2021-02-25 14:25 | disposition home or self-care (01) ==
LOC: JONCCHEMO 07:34
PROVIDERS: ATTEND Internal Medicine Hematology & Oncology
DX: Z51.11 Encounter for antineoplastic chemotherapy (principal); C50.812 Malignant neoplasm of overlapping sites of left female breast; C78.00 Secondary malignant neoplasm of unspecified lung; L40.50 Arthropathic psoriasis, unspecified; E11.9 Type 2 diabetes mellitus without complications; I10 Essential (primary) hypertension
CPT/HCPCS: 36415; 80053; 85025; 96375; 96413; 96417; J9264; J9271

== ENCOUNTER 2021-03-04 07:25 | Day surgery (SDC) | payer OTHER ==
[2021-03-04] MEDS ORDERED: ONDANSETRON INJECTION 8 MG in SODIUM CHLORIDE 50 ML IVPB ONE (10:00)
[2021-03-04] MEDS ORDERED: PACLITAXEL PROTEIN-BOUND 155 MG in SODIUM CHLORIDE 31 ML IVPB ONE (10:30)
[2021-03-04 15:40] LABS: BASO % 1.6 % (0-2.0); EOS % 0.8 % (0-4.5); HEMATOCRIT 34.3 % (32.4-45.2); HEMOGLOBIN 11.4 GM/dL (10.7-15.3); LYMPH % 41.3 % (8-40); MCH 27.4 pg (25.7-33.7); MCHC 33.3 g/dl (32.0-36.0); MEAN CELL VOLUME 82.2 fl (80-96); MEAN PLT VOLUME 8.2 fl (7.5-11.1); MONO % 8.5 % (3.8-10.2); NEUT % 47.8 % (42.8-82.8); PLATELET COUNT 148 10^3/uL (134-434); RBC 4.17 M/mm3 (3.60-5.2); RDW 19.9 % (11.6-15.6); WHITE BLOOD COUNT 4.1 K/mm3 (4.0-10.0)
[2021-03-04 16:08] LABS: CALCIUM 9.1 mg/dL (8.5-10.1)
[2021-03-04 16:09] LABS: ALBUMIN 3.5 g/dl (3.4-5.0); BLOOD UREA NITROGEN 15.8 mg/dL (7-18)
[2021-03-04 16:12] LABS: CREATININE 0.9 mg/dL (0.55-1.3)
[2021-03-04 16:13] LABS: BILIRUBIN,TOTAL 1.2 mg/dL (0.2-1); TOT PROT 6.6 g/dl (6.4-8.2)
[2021-03-04 17:31] VITALS: BP 118/54; PULSE 72; TEMP 97.9
== END 2021-03-04 17:20 | disposition home or self-care (01) ==
LOC: JONCCHEMO 07:25
PROVIDERS: ATTEND Internal Medicine Hematology & Oncology
DX: Z51.11 Encounter for antineoplastic chemotherapy (principal); C50.812 Malignant neoplasm of overlapping sites of left female breast; C78.00 Secondary malignant neoplasm of unspecified lung; L40.50 Arthropathic psoriasis, unspecified; E11.9 Type 2 diabetes mellitus without complications; I10 Essential (primary) hypertension
CPT/HCPCS: 36415; 80053; 83735; 85025; 96375; 96413; J9264

== ENCOUNTER 2021-03-18 08:46 | Day surgery (SDC) | payer OTHER ==
[2021-03-18 09:51] LABS: EOS % 0.5 % (0-4.5); HEMATOCRIT 33.7 % (32.4-45.2); HEMOGLOBIN 11.2 GM/dL (10.7-15.3); LYMPH % 25.2 % (8-40); MCH 27.4 pg (25.7-33.7); MCHC 33.3 g/dl (32.0-36.0); MEAN CELL VOLUME 82.4 fl (80-96); MEAN PLT VOLUME 7.7 fl (7.5-11.1); MONO % 18.9 % (3.8-10.2); NEUT % 54.4 % (42.8-82.8); PLATELET COUNT 138 10^3/uL (134-434); RBC 4.09 M/mm3 (3.60-5.2); RDW 20.2 % (11.6-15.6); WHITE BLOOD COUNT 4.6 K/mm3 (4.0-10.0)
[2021-03-18 10:29] LABS: CALCIUM 9.1 mg/dL (8.5-10.1)
[2021-03-18 10:30] LABS: ALBUMIN 3.2 g/dl (3.4-5.0); BLOOD UREA NITROGEN 10.1 mg/dL (7-18); MAGNESIUM 2.1 mg/dL (1.8-2.4)
[2021-03-18] MEDS ORDERED: ONDANSETRON INJECTION 8 MG in SODIUM CHLORIDE 50 ML IVPB ONE (10:30)
[2021-03-18 10:34] LABS: TOT PROT 6.3 g/dl (6.4-8.2)
[2021-03-18] MEDS ORDERED: PACLITAXEL PROTEIN-BOUND 155 MG in SODIUM CHLORIDE 31 ML IVPB ONE (11:00)
[2021-03-18] MEDS ORDERED: PEMBROLIZUMAB 200 MG in SODIUM CHLORIDE 50 ML IV ONE (11:30)
[2021-03-18] MEDS ORDERED: PACLITAXEL PROTEIN BOUND IVPB ONE (12:00)
[2021-03-18] MEDS ORDERED: SODIUM CHLORIDE IVPB ONE (12:00)
[2021-03-18] MEDS ORDERED: ACETAMINOPHEN 325 MG TABLET (FP) ONE (14:08)
[2021-03-18] MEDS ORDERED: ACETAMINOPHEN 325 MG TABLET (FP) PO ONE (14:08)
[2021-03-18] MEDS ORDERED: PROCHLORPERAZINE INJECTION 10 MG/2 ML VIAL IVPB ONE (14:15)
[2021-03-18 16:27] VITALS: TEMP 98.2
[2021-03-18 16:33] VITALS: BP 93/48; PULSE 80
== END 2021-03-18 14:45 | disposition home or self-care (01) ==
LOC: JONCCHEMO 08:46
PROVIDERS: ATTEND Internal Medicine Hematology & Oncology
DX: Z51.11 Encounter for antineoplastic chemotherapy (principal); C50.812 Malignant neoplasm of overlapping sites of left female breast; C78.00 Secondary malignant neoplasm of unspecified lung; E11.9 Type 2 diabetes mellitus without complications
CPT/HCPCS: 36415; 80053; 83735; 85025; 86300; 86704; 86708; 87340; 87517; 96367; 96413; 96417; J9264; J9271

== ENCOUNTER 2021-03-25 07:52 | Day surgery (SDC) | payer OTHER ==
[2021-03-25] MEDS ORDERED: ONDANSETRON INJECTION 8 MG in SODIUM CHLORIDE 50 ML IVPB ONE (10:30)
[2021-03-25] MEDS ORDERED: SODIUM CHLORIDE IVPB ONE (11:00)
[2021-03-25] MEDS ORDERED: PACLITAXEL PROTEIN BOUND IVPB ONE (11:00)
[2021-03-25 14:50] LABS: BASO % 0.7 % (0-2.0); EOS % 0.8 % (0-4.5); HEMATOCRIT 33.7 % (32.4-45.2); HEMOGLOBIN 11.4 GM/dL (10.7-15.3); LYMPH % 26.6 % (8-40); MCH 27.8 pg (25.7-33.7); MCHC 33.8 g/dl (32.0-36.0); MEAN CELL VOLUME 82.4 fl (80-96); MEAN PLT VOLUME 8.8 fl (7.5-11.1); MONO % 6.5 % (3.8-10.2); NEUT % 65.4 % (42.8-82.8); PLATELET COUNT 153 10^3/uL (134-434); RBC 4.09 M/mm3 (3.60-5.2); RDW 19.7 % (11.6-15.6); WHITE BLOOD COUNT 6.5 K/mm3 (4.0-10.0)
[2021-03-25 15:14] LABS: CALCIUM 8.7 mg/dL (8.5-10.1)
[2021-03-25 15:15] LABS: ALBUMIN 3.4 g/dl (3.4-5.0); BLOOD UREA NITROGEN 10.1 mg/dL (7-18)
[2021-03-25 15:18] LABS: CREATININE 0.9 mg/dL (0.55-1.3)
[2021-03-25 15:19] LABS: BILIRUBIN,TOTAL 0.9 mg/dL (0.2-1); TOT PROT 6.4 g/dl (6.4-8.2)
[2021-03-25 16:51] VITALS: TEMP 98
[2021-03-25 16:54] VITALS: BP 110/62; PULSE 76
== END 2021-03-25 16:56 | disposition home or self-care (01) ==
LOC: JONCCHEMO 07:52
PROVIDERS: ATTEND Internal Medicine Hematology & Oncology
DX: Z51.11 Encounter for antineoplastic chemotherapy (principal); C50.812 Malignant neoplasm of overlapping sites of left female breast; C78.00 Secondary malignant neoplasm of unspecified lung; E11.9 Type 2 diabetes mellitus without complications
CPT/HCPCS: 36415; 80053; 85025; 96375; 96413; J9264

== ENCOUNTER 2021-04-01 08:18 | Day surgery (SDC) | payer OTHER ==
[2021-04-01 09:20] LABS: BASO % 0.8 % (0-2.0); EOS % 1.9 % (0-4.5); HEMATOCRIT 32.9 % (32.4-45.2); HEMOGLOBIN 10.9 GM/dL (10.7-15.3); LYMPH % 26.9 % (8-40); MCH 27.7 pg (25.7-33.7); MEAN CELL VOLUME 83.9 fl (80-96); MEAN PLT VOLUME 8.2 fl (7.5-11.1); NEUT % 60.4 % (42.8-82.8); PLATELET COUNT 138 10^3/uL (134-434); RBC 3.92 M/mm3 (3.60-5.2); RDW 20.5 % (11.6-15.6); WHITE BLOOD COUNT 4.8 K/mm3 (4.0-10.0)
[2021-04-01 09:51] LABS: ALBUMIN 3.2 g/dl (3.4-5.0); BLOOD UREA NITROGEN 9.5 mg/dL (7-18); CALCIUM 8.7 mg/dL (8.5-10.1); MAGNESIUM 2.1 mg/dL (1.8-2.4)
[2021-04-01 09:54] LABS: CREATININE 0.8 mg/dL (0.55-1.3)
[2021-04-01 09:55] LABS: TOT PROT 6.2 g/dl (6.4-8.2)
[2021-04-01 10:27] LABS: ANISOCYTOSIS 1+; MACROCYTOSIS 0; PLATELET ESTIMATE DECREASED
[2021-04-01] MEDS ORDERED: ONDANSETRON INJECTION 8 MG in SODIUM CHLORIDE 50 ML IVPB ONE (10:30)
[2021-04-01] MEDS ORDERED: SODIUM CHLORIDE IVPB ONE (11:00)
[2021-04-01] MEDS ORDERED: PACLITAXEL PROTEIN BOUND IVPB ONE (11:00)
[2021-04-01 15:46] VITALS: BP 128/63; PULSE 63; TEMP 97.9
[2021-04-01] MEDS ORDERED: PORTA CATH FLUSH 10 ML IVPUSH ONE (15:46)
== END 2021-04-01 13:10 | disposition home or self-care (01) ==
LOC: JONCCHEMO 08:18
PROVIDERS: ATTEND Internal Medicine Hematology & Oncology
DX: Z51.11 Encounter for antineoplastic chemotherapy (principal); C50.812 Malignant neoplasm of overlapping sites of left female breast; C78.00 Secondary malignant neoplasm of unspecified lung; E11.9 Type 2 diabetes mellitus without complications
CPT/HCPCS: 36415; 80053; 83735; 85025; 96367; 96413; J9264

== ENCOUNTER 2021-04-08 09:09 | Day surgery (SDC) | payer OTHER ==
[2021-04-08] MEDS ORDERED: ONDANSETRON INJECTION 8 MG in SODIUM CHLORIDE 50 ML IVPB ONE (10:00)
[2021-04-08] MEDS ORDERED: PEMBROLIZUMAB 200 MG in SODIUM CHLORIDE 50 ML IV ONE (10:30)
[2021-04-08] MEDS ORDERED: SODIUM CHLORIDE IVPB ONE (11:00)
[2021-04-08] MEDS ORDERED: PACLITAXEL PROTEIN BOUND IVPB ONE (11:00)
[2021-04-08 11:11] LABS: BASO % 1.1 % (0-2.0); EOS % 1.2 % (0-4.5); HEMATOCRIT 32.6 % (32.4-45.2); HEMOGLOBIN 10.8 GM/dL (10.7-15.3); LYMPH % 30.8 % (8-40); MCH 27.9 pg (25.7-33.7); MEAN CELL VOLUME 84.4 fl (80-96); MEAN PLT VOLUME 8.3 fl (7.5-11.1); MONO % 4.7 % (3.8-10.2); NEUT % 62.2 % (42.8-82.8); PLATELET COUNT 150 10^3/uL (134-434); RBC 3.86 M/mm3 (3.60-5.2); RDW 19.8 % (11.6-15.6); WHITE BLOOD COUNT 3.3 K/mm3 (4.0-10.0)
[2021-04-08 11:28] LABS: ALBUMIN 3.2 g/dl (3.4-5.0); BLOOD UREA NITROGEN 8.4 mg/dL (7-18); CALCIUM 8.9 mg/dL (8.5-10.1)
[2021-04-08 11:31] LABS: CREATININE 0.8 mg/dL (0.55-1.3)
[2021-04-08 11:33] LABS: BILIRUBIN,TOTAL 0.7 mg/dL (0.2-1); TOT PROT 6.1 g/dl (6.4-8.2)
[2021-04-08 17:07] VITALS: TEMP 98.4
[2021-04-08 17:17] VITALS: BP 147/63; PULSE 61
== END 2021-04-08 15:30 | disposition home or self-care (01) ==
LOC: JONCCHEMO 09:09
PROVIDERS: ATTEND Internal Medicine Hematology & Oncology
DX: Z51.11 Encounter for antineoplastic chemotherapy (principal); C50.812 Malignant neoplasm of overlapping sites of left female breast; C78.00 Secondary malignant neoplasm of unspecified lung; E11.9 Type 2 diabetes mellitus without complications
CPT/HCPCS: 36415; 80053; 83735; 85025; 96375; 96413; 96417; J2405; J9264; J9271

== ENCOUNTER 2021-04-29 08:04 | Day surgery (SDC) | payer OTHER ==
[2021-04-29 10:14] LABS: BASO % 0.7 % (0-2.0); EOS % 1.3 % (0-4.5); HEMATOCRIT 34.9 % (32.4-45.2); HEMOGLOBIN 11.4 GM/dL (10.7-15.3); LYMPH % 22.3 % (8-40); MCHC 32.7 g/dl (32.0-36.0); MEAN CELL VOLUME 85.8 fl (80-96); MEAN PLT VOLUME 8.7 fl (7.5-11.1); NEUT % 67.7 % (42.8-82.8); PLATELET COUNT 140 10^3/uL (134-434); RBC 4.06 M/mm3 (3.60-5.2); RDW 21.2 % (11.6-15.6); WHITE BLOOD COUNT 6.3 K/mm3 (4.0-10.0)
[2021-04-29 10:36] LABS: ALBUMIN 3.4 g/dl (3.4-5.0); BLOOD UREA NITROGEN 19.2 mg/dL (7-18)
[2021-04-29 10:39] LABS: CREATININE 0.8 mg/dL (0.55-1.3)
[2021-04-29 10:40] LABS: BILIRUBIN,TOTAL 0.6 mg/dL (0.2-1)
[2021-04-29 10:41] LABS: TOT PROT 6.2 g/dl (6.4-8.2)
[2021-04-29] MEDS ORDERED: ONDANSETRON INJECTION 8 MG in SODIUM CHLORIDE 50 ML IVPB ONE (11:00)
[2021-04-29] MEDS ORDERED: PEMBROLIZUMAB 200 MG in SODIUM CHLORIDE 50 ML IV ONE (11:30)
[2021-04-29 11:46] LABS: ANISOCYTOSIS 2+; MACROCYTOSIS 0; OVALOCYTE 2+; PLATELET ESTIMATE DECREASED; TEAR DROP CELLS 1+
[2021-04-29 14:49] VITALS: BP 142/61; PULSE 80; TEMP 98.7
== END 2021-04-29 13:30 | disposition home or self-care (01) ==
LOC: JONCCHEMO 08:04
PROVIDERS: ATTEND Internal Medicine Hematology & Oncology
DX: Z51.11 Encounter for antineoplastic chemotherapy (principal); C50.812 Malignant neoplasm of overlapping sites of left female breast; C78.00 Secondary malignant neoplasm of unspecified lung; E11.9 Type 2 diabetes mellitus without complications
CPT/HCPCS: 36415; 80053; 84439; 84443; 85025; 96413; J9271

== ENCOUNTER 2021-05-27 09:01 | Day surgery (SDC) | payer OTHER ==
[~2021-05-27 09:01] MED LIST changes: -ONDANSETRON INJECTION 8 MG in SODIUM CHLORIDE 50 ML IVPB ONE; -PACLITAXEL PROTEIN-BOUND 155 MG in SODIUM CHLORIDE 31 ML IVPB ONE; +PEMBROLIZUMAB 200 MG in SODIUM CHLORIDE 100 ML IV ONE
[2021-05-27 09:44] LABS: BASO % 0.6 % (0-2.0); EOS % 3.4 % (0-4.5); HEMATOCRIT 34.7 % (32.4-45.2); HEMOGLOBIN 11.6 GM/dL (10.7-15.3); LYMPH % 21.4 % (8-40); MCH 28.1 pg (25.7-33.7); MCHC 33.5 g/dl (32.0-36.0); MEAN CELL VOLUME 83.8 fl (80-96); MEAN PLT VOLUME 8.5 fl (7.5-11.1); MONO % 7.4 % (3.8-10.2); NEUT % 67.2 % (42.8-82.8); PLATELET COUNT 157 10^3/uL (134-434); RBC 4.14 M/mm3 (3.60-5.2); RDW 17.4 % (11.6-15.6); WHITE BLOOD COUNT 7.4 K/mm3 (4.0-10.0)
[2021-05-27 09:53] LABS: CALCIUM 8.9 mg/dL (8.5-10.1)
[2021-05-27 09:54] LABS: ALBUMIN 3.8 g/dl (3.4-5.0)
[2021-05-27 09:59] LABS: BILIRUBIN,TOTAL 0.9 mg/dL (0.2-1); CREATININE 0.8 mg/dL (0.55-1.3); TOT PROT 6.7 g/dl (6.4-8.2)
[2021-05-27] MEDS ORDERED: PEMBROLIZUMAB 200 MG in SODIUM CHLORIDE 100 ML IV ONE (11:00)
[2021-05-27 18:21] VITALS: BP 125/56; PULSE 63; TEMP 97.9
[2021-05-27] MEDS ORDERED: PORTA CATH FLUSH 10 ML IVPUSH ONE (18:21)
== END 2021-05-27 13:30 | disposition home or self-care (01) ==
LOC: JONCCHEMO 09:01
PROVIDERS: ATTEND Internal Medicine Hematology & Oncology
DX: Z51.11 Encounter for antineoplastic chemotherapy (principal); C50.812 Malignant neoplasm of overlapping sites of left female breast; C78.00 Secondary malignant neoplasm of unspecified lung; E11.9 Type 2 diabetes mellitus without complications
CPT/HCPCS: 36415; 80053; 84439; 84443; 85025; 96413; J9271

== ENCOUNTER 2021-06-17 07:37 | Day surgery (SDC) | payer OTHER ==
[2021-06-17] MEDS ORDERED: PEMBROLIZUMAB 200 MG in SODIUM CHLORIDE 50 ML IV ONE (10:00)
[2021-06-17 10:36] LABS: BASO % 0.7 % (0-2.0); EOS % 3.1 % (0-4.5); HEMATOCRIT 37.2 % (32.4-45.2); HEMOGLOBIN 12.4 GM/dL (10.7-15.3); LYMPH % 21.4 % (8-40); MCH 27.9 pg (25.7-33.7); MCHC 33.2 g/dl (32.0-36.0); MEAN CELL VOLUME 84.2 fl (80-96); MEAN PLT VOLUME 9.3 fl (7.5-11.1); MONO % 8.9 % (3.8-10.2); NEUT % 65.9 % (42.8-82.8); PLATELET COUNT 139 10^3/uL (134-434); RBC 4.42 M/mm3 (3.60-5.2); RDW 15.6 % (11.6-15.6); WHITE BLOOD COUNT 6.2 K/mm3 (4.0-10.0)
[2021-06-17 10:49] LABS: ALBUMIN 3.9 g/dl (3.4-5.0); BLOOD UREA NITROGEN 20.9 mg/dL (7-18); CALCIUM 9.6 mg/dL (8.5-10.1)
[2021-06-17 10:52] LABS: CREATININE 0.9 mg/dL (0.55-1.3)
[2021-06-17 10:54] LABS: BILIRUBIN,TOTAL 0.6 mg/dL (0.2-1); TOT PROT 7.2 g/dl (6.4-8.2)
[2021-06-17 11:05] VITALS: TEMP 98.7
[2021-06-17 16:19] VITALS: BP 139/69; PULSE 87
== END 2021-06-17 13:05 | disposition home or self-care (01) ==
LOC: JONCCHEMO 07:37
PROVIDERS: ATTEND Internal Medicine Hematology & Oncology
DX: Z51.11 Encounter for antineoplastic chemotherapy (principal); C50.812 Malignant neoplasm of overlapping sites of left female breast; C78.00 Secondary malignant neoplasm of unspecified lung; E11.9 Type 2 diabetes mellitus without complications
CPT/HCPCS: 36415; 80053; 85025; 86300; 96413; J9271

== ENCOUNTER 2021-07-08 07:06 | Day surgery (SDC) | payer OTHER ==
[2021-07-08] MEDS ORDERED: PEMBROLIZUMAB 200 MG in SODIUM CHLORIDE 50 ML IV ONE (10:00)
[2021-07-08 11:17] LABS: BASO % 0.7 % (0-2.0); EOS % 4.9 % (0-4.5); HEMATOCRIT 36.2 % (32.4-45.2); HEMOGLOBIN 12.3 GM/dL (10.7-15.3); LYMPH % 22.2 % (8-40); MCH 28.3 pg (25.7-33.7); MCHC 33.9 g/dl (32.0-36.0); MEAN CELL VOLUME 83.4 fl (80-96); MEAN PLT VOLUME 8.5 fl (7.5-11.1); MONO % 7.4 % (3.8-10.2); NEUT % 64.8 % (42.8-82.8); PLATELET COUNT 128 10^3/uL (134-434); RBC 4.34 M/mm3 (3.60-5.2); RDW 15.4 % (11.6-15.6); WHITE BLOOD COUNT 6.6 K/mm3 (4.0-10.0)
[2021-07-08 11:36] LABS: ALBUMIN 3.7 g/dl (3.4-5.0)
[2021-07-08 11:39] LABS: CREATININE 0.9 mg/dL (0.55-1.3)
[2021-07-08 11:40] LABS: BILIRUBIN,TOTAL 0.6 mg/dL (0.2-1)
[2021-07-08 11:41] LABS: TOT PROT 6.8 g/dl (6.4-8.2)
[2021-07-08 17:35] VITALS: BP 98/50; PULSE 69; TEMP 98.4
== END 2021-07-08 16:30 | disposition home or self-care (01) ==
LOC: JONCCHEMO 07:06
PROVIDERS: ATTEND Internal Medicine Hematology & Oncology
DX: Z51.11 Encounter for antineoplastic chemotherapy (principal); C50.812 Malignant neoplasm of overlapping sites of left female breast; C78.00 Secondary malignant neoplasm of unspecified lung; E11.9 Type 2 diabetes mellitus without complications
CPT/HCPCS: 36415; 80053; 84439; 84443; 85025; 96413; J9271

== ENCOUNTER 2021-07-29 07:31 | Day surgery (SDC) | payer OTHER ==
[2021-07-29] MEDS ORDERED: PEMBROLIZUMAB 200 MG in SODIUM CHLORIDE 50 ML IV ONE (10:00)
[2021-07-29 11:43] LABS: BASO % 0.5 % (0-2.0); EOS % 4.5 % (0-4.5); HEMATOCRIT 36.4 % (32.4-45.2); HEMOGLOBIN 12.1 GM/dL (10.7-15.3); LYMPH % 26.7 % (8-40); MCH 27.6 pg (25.7-33.7); MCHC 33.3 g/dl (32.0-36.0); MEAN CELL VOLUME 82.9 fl (80-96); MEAN PLT VOLUME 8.7 fl (7.5-11.1); MONO % 7.7 % (3.8-10.2); NEUT % 60.6 % (42.8-82.8); PLATELET COUNT 114 10^3/uL (134-434); RBC 4.39 M/mm3 (3.60-5.2); RDW 15.5 % (11.6-15.6); WHITE BLOOD COUNT 6.2 K/mm3 (4.0-10.0)
[2021-07-29 12:05] LABS: BLOOD UREA NITROGEN 18.6 mg/dL (7-18); CALCIUM 9.4 mg/dL (8.5-10.1)
[2021-07-29 12:06] LABS: ALBUMIN 3.4 g/dl (3.4-5.0)
[2021-07-29 12:08] LABS: CREATININE 0.8 mg/dL (0.55-1.3)
[2021-07-29 12:10] LABS: BILIRUBIN,TOTAL 0.6 mg/dL (0.2-1); TOT PROT 6.7 g/dl (6.4-8.2)
[2021-07-29 17:01] VITALS: BP 133/61; PULSE 66; TEMP 98.1
== END 2021-07-29 13:45 | disposition home or self-care (01) ==
LOC: JONCCHEMO 07:31
PROVIDERS: ATTEND Internal Medicine Hematology & Oncology
DX: Z51.11 Encounter for antineoplastic chemotherapy (principal); C50.812 Malignant neoplasm of overlapping sites of left female breast; C78.00 Secondary malignant neoplasm of unspecified lung; E11.9 Type 2 diabetes mellitus without complications
CPT/HCPCS: 36415; 80053; 84439; 84443; 85025; 96413; J9271

== ENCOUNTER 2021-08-19 07:07 | Day surgery (SDC) | payer OTHER ==
[2021-08-19] MEDS ORDERED: PEMBROLIZUMAB 200 MG in SODIUM CHLORIDE 50 ML IV ONE (10:00)
[2021-08-19 12:03] LABS: BASO % 0.8 % (0-2.0); EOS % 5.8 % (0-4.5); HEMATOCRIT 36.8 % (32.4-45.2); HEMOGLOBIN 12.6 GM/dL (10.7-15.3); LYMPH % 26.5 % (8-40); MCH 28.2 pg (25.7-33.7); MCHC 34.2 g/dl (32.0-36.0); MEAN CELL VOLUME 82.3 fl (80-96); MEAN PLT VOLUME 8.5 fl (7.5-11.1); MONO % 8.2 % (3.8-10.2); NEUT % 58.7 % (42.8-82.8); PLATELET COUNT 119 10^3/uL (134-434); RBC 4.48 M/mm3 (3.60-5.2); RDW 16.1 % (11.6-15.6); WHITE BLOOD COUNT 6.8 K/mm3 (4.0-10.0)
[2021-08-19 12:24] LABS: ALBUMIN 3.7 g/dl (3.4-5.0); BLOOD UREA NITROGEN 23.2 mg/dL (7-18); CALCIUM 9.3 mg/dL (8.5-10.1)
[2021-08-19 12:27] LABS: CREATININE 0.9 mg/dL (0.55-1.3)
[2021-08-19 12:29] LABS: BILIRUBIN,TOTAL 0.7 mg/dL (0.2-1); TOT PROT 6.8 g/dl (6.4-8.2)
[2021-08-19 16:21] VITALS: BP 111/56; PULSE 61; TEMP 98.5
[2021-08-19] MEDS ORDERED: PORTA CATH FLUSH 10 ML IVPUSH PRN (16:21)
== END 2021-08-19 14:30 | disposition home or self-care (01) ==
LOC: JONCCHEMO 07:07
PROVIDERS: ATTEND Internal Medicine Hematology & Oncology
DX: Z51.11 Encounter for antineoplastic chemotherapy (principal); C50.812 Malignant neoplasm of overlapping sites of left female breast; C78.00 Secondary malignant neoplasm of unspecified lung; E11.9 Type 2 diabetes mellitus without complications
CPT/HCPCS: 36415; 80053; 85025; 96413; J9271

== ENCOUNTER 2021-09-09 06:34 | Day surgery (SDC) | payer OTHER ==
[2021-09-09] MEDS ORDERED: PEMBROLIZUMAB 200 MG in SODIUM CHLORIDE 50 ML IV ONE (10:00)
[2021-09-09 13:21] LABS: BASO % 0.7 % (0-2.0); EOS % 6.1 % (0-4.5); HEMATOCRIT 35.2 % (32.4-45.2); HEMOGLOBIN 11.7 GM/dL (10.7-15.3); LYMPH % 35.2 % (8-40); MCH 27.8 pg (25.7-33.7); MCHC 33.2 g/dl (32.0-36.0); MEAN CELL VOLUME 83.6 fl (80-96); MONO % 7.9 % (3.8-10.2); NEUT % 50.1 % (42.8-82.8); PLATELET COUNT 102 10^3/uL (134-434); RBC 4.21 M/mm3 (3.60-5.2)
[2021-09-09 13:48] LABS: ALBUMIN 3.5 g/dl (3.4-5.0); BLOOD UREA NITROGEN 16.7 mg/dL (7-18); CALCIUM 8.8 mg/dL (8.5-10.1)
[2021-09-09 13:52] LABS: CREATININE 0.8 mg/dL (0.55-1.3)
[2021-09-09 13:53] LABS: BILIRUBIN,TOTAL 0.6 mg/dL (0.2-1); TOT PROT 6.4 g/dl (6.4-8.2)
[2021-09-09 16:35] VITALS: TEMP 98.3
[2021-09-09] MEDS ORDERED: PORTA CATH FLUSH 10 ML IVPUSH PRN (16:39)
[2021-09-09 16:40] VITALS: BP 116/62; PULSE 64
== END 2021-09-09 15:45 | disposition home or self-care (01) ==
LOC: JONCCHEMO 06:34
PROVIDERS: ATTEND Internal Medicine Hematology & Oncology
DX: Z51.11 Encounter for antineoplastic chemotherapy (principal); C50.812 Malignant neoplasm of overlapping sites of left female breast; C78.00 Secondary malignant neoplasm of unspecified lung; E11.9 Type 2 diabetes mellitus without complications
CPT/HCPCS: 36415; 80053; 84439; 84443; 85025; 86300; 96413; J9271

== ENCOUNTER 2021-09-26 07:57 | Emergency (ER) | payer OTHER ==
[2021-09-26 08:11] VITALS: BP 102/65; PULSE 65; TEMP 97; BMI 27.4
[2021-09-26] MEDS ORDERED: FLUORESCEIN NA 1 EA STRIP ONE (08:56)
[2021-09-26] MEDS ORDERED: TETRACAINE 0.5% OPHTH SOLN 2 ML BOTTLE ONE (08:57)
[2021-09-26] MEDS ORDERED: FLUORESCEIN NA 1 EA STRIP OS ONE (09:08)
[2021-09-26] MEDS ORDERED: TETRACAINE 0.5% HCL 0.6ML DROPPER.BOTTLE OS ONE (09:08)
[2021-09-26] MEDS ORDERED: CIPROFLOXACIN 0.3% EYE DROPS 5 ML BOTTLE OS ONE (09:08)
[2021-09-26] MEDS ORDERED: CIPROFLOXACIN 0.3% EYE DROPS 5 ML BOTTLE ONE (09:11)
== END 2021-09-26 09:25 | disposition home or self-care (01) ==
LOC: JER 07:57 → JERFT 07:57
DX: S05.02XA Injury of conjunctiva and corneal abrasion without foreign body, left eye, initial encounter (principal); Y99.9 Unspecified external cause status
CPT/HCPCS: 99283-25

== ENCOUNTER 2021-09-30 08:22 | Day surgery (SDC) | payer OTHER ==
[2021-09-30] MEDS ORDERED: PEMBROLIZUMAB 200 MG in SODIUM CHLORIDE 50 ML IV ONE (10:00)
[2021-09-30 11:05] LABS: BASO % 0.8 % (0-2.0); EOS % 6.8 % (0-4.5); HEMATOCRIT 37.2 % (32.4-45.2); HEMOGLOBIN 12.6 GM/dL (10.7-15.3); LYMPH % 34.5 % (8-40); MCH 28.4 pg (25.7-33.7); MCHC 33.8 g/dl (32.0-36.0); MEAN CELL VOLUME 83.8 fl (80-96); MEAN PLT VOLUME 8.7 fl (7.5-11.1); MONO % 8.8 % (3.8-10.2); NEUT % 49.1 % (42.8-82.8); PLATELET COUNT 124 10^3/uL (134-434); RBC 4.43 M/mm3 (3.60-5.2); RDW 15.7 % (11.6-15.6); WHITE BLOOD COUNT 6.3 K/mm3 (4.0-10.0)
[2021-09-30 11:33] LABS: ALBUMIN 4.1 g/dl (3.4-5.0); CALCIUM 9.7 mg/dL (8.5-10.1)
[2021-09-30 11:34] LABS: BLOOD UREA NITROGEN 19.4 mg/dL (7-18)
[2021-09-30 11:37] LABS: CREATININE 0.9 mg/dL (0.55-1.3)
[2021-09-30 11:38] LABS: BILIRUBIN,TOTAL 0.8 mg/dL (0.2-1); TOT PROT 7.1 g/dl (6.4-8.2)
[2021-09-30 18:43] VITALS: TEMP 98.2
[2021-09-30] MEDS ORDERED: PORTA CATH FLUSH 10 ML IVPUSH PRN (18:47)
[2021-09-30 18:48] VITALS: BP 133/62; PULSE 63
== END 2021-09-30 14:15 | disposition home or self-care (01) ==
LOC: JONCCHEMO 08:22
PROVIDERS: ATTEND Internal Medicine Hematology & Oncology
DX: Z51.11 Encounter for antineoplastic chemotherapy (principal); C50.812 Malignant neoplasm of overlapping sites of left female breast; C78.00 Secondary malignant neoplasm of unspecified lung; E11.9 Type 2 diabetes mellitus without complications
CPT/HCPCS: 36415; 80053; 85025; 96413; J9271

== ENCOUNTER 2021-10-13 09:14 | Day surgery (SDC) | payer OTHER ==
[2021-10-11 12:24] VITALS: BMI 28.3
[2021-10-13 10:15] VITALS: TEMP 97.5
[2021-10-13 12:05] VITALS: BP 122/74; PULSE 69
== END 2021-10-13 13:21 | disposition home or self-care (01) ==
LOC: FASU-ENDO 09:14
PROVIDERS: ATTEND Internal Medicine Gastroenterology
PROC: 0DB68ZX Excision of Stomach, Via Natural or Artificial Opening Endoscopic, Diagnostic (ICD-10-PCS; 2021-10-13)
PROC: 0DB48ZX Excision of Esophagogastric Junction, Via Natural or Artificial Opening Endoscopic, Diagnostic (ICD-10-PCS; 2021-10-13)
PROC: 0DB98ZX Excision of Duodenum, Via Natural or Artificial Opening Endoscopic, Diagnostic (ICD-10-PCS; principal; 2021-10-13 11:16)
DX: K29.50 Unspecified chronic gastritis without bleeding (principal); K31.9 Disease of stomach and duodenum, unspecified; K20.90 Esophagitis, unspecified without bleeding; R10.13 Epigastric pain
CPT/HCPCS: 82962; 88305-TC; 88342-TC

== ENCOUNTER 2021-10-21 07:39 | Day surgery (SDC) | payer OTHER ==
[2021-10-21] MEDS ORDERED: PEMBROLIZUMAB 200 MG in SODIUM CHLORIDE 50 ML IV ONE (10:00)
[2021-10-21 10:25] LABS: BASO % 0.9 % (0-2.0); EOS % 4.3 % (0-4.5); HEMATOCRIT 36.3 % (32.4-45.2); HEMOGLOBIN 12.4 GM/dL (10.7-15.3); LYMPH % 23.1 % (8-40); MCH 28.8 pg (25.7-33.7); MCHC 34.1 g/dl (32.0-36.0); MEAN CELL VOLUME 84.4 fl (80-96); MEAN PLT VOLUME 8.3 fl (7.5-11.1); MONO % 8.4 % (3.8-10.2); NEUT % 63.3 % (42.8-82.8); PLATELET COUNT 134 10^3/uL (134-434); RDW 15.5 % (11.6-15.6); WHITE BLOOD COUNT 5.6 K/mm3 (4.0-10.0)
[2021-10-21 10:47] LABS: ALBUMIN 3.7 g/dl (3.4-5.0); BLOOD UREA NITROGEN 12.6 mg/dL (7-18); CALCIUM 9.3 mg/dL (8.5-10.1)
[2021-10-21 10:50] LABS: CREATININE 0.8 mg/dL (0.55-1.3)
[2021-10-21 10:52] LABS: BILIRUBIN,TOTAL 0.6 mg/dL (0.2-1); TOT PROT 6.6 g/dl (6.4-8.2)
[2021-10-21 16:55] VITALS: TEMP 98.3
[2021-10-21 17:03] VITALS: BP 132/62; PULSE 62
[2021-10-21] MEDS ORDERED: PORTA CATH FLUSH 10 ML IVPUSH PRN (17:03)
== END 2021-10-21 14:25 | disposition home or self-care (01) ==
LOC: JONCCHEMO 07:39
PROVIDERS: ATTEND Internal Medicine Hematology & Oncology
DX: Z51.11 Encounter for antineoplastic chemotherapy (principal); C50.812 Malignant neoplasm of overlapping sites of left female breast; C78.00 Secondary malignant neoplasm of unspecified lung
CPT/HCPCS: 36415; 80053; 85025; 96413; J9271

== ENCOUNTER → 2021-11-11 | Day surgery (SDC) | payer OTHER ==
[~2021-11-11] MED LIST changes: -PEMBROLIZUMAB 200 MG in SODIUM CHLORIDE 100 ML IV ONE; +PEMBROLIZUMAB 200 MG in SODIUM CHLORIDE 50 ML IV ONE
[2021-11-11 10:47] LABS: BASO % 0.4 % (0-2.0); EOS % 2.3 % (0-4.5); HEMATOCRIT 35.3 % (32.4-45.2); HEMOGLOBIN 12.1 GM/dL (10.7-15.3); LYMPH % 20.3 % (8-40); MCH 29.3 pg (25.7-33.7); MCHC 34.4 g/dl (32.0-36.0); MEAN CELL VOLUME 85.4 fl (80-96); MEAN PLT VOLUME 8.4 fl (7.5-11.1); MONO % 9.6 % (3.8-10.2); NEUT % 67.4 % (42.8-82.8); PLATELET COUNT 131 10^3/uL (134-434); RBC 4.13 M/mm3 (3.60-5.2); RDW 15.1 % (11.6-15.6); WHITE BLOOD COUNT 7.4 K/mm3 (4.0-10.0)
[2021-11-11 11:15] LABS: CALCIUM 9.6 mg/dL (8.5-10.1)
[2021-11-11 11:16] LABS: ALBUMIN 3.6 g/dl (3.4-5.0); BLOOD UREA NITROGEN 20.3 mg/dL (7-18)
[2021-11-11 11:19] LABS: CREATININE 0.8 mg/dL (0.55-1.3)
[2021-11-11 11:20] LABS: BILIRUBIN,TOTAL 0.7 mg/dL (0.2-1); TOT PROT 6.6 g/dl (6.4-8.2)
== END | disposition home or self-care (01) ==
LOC: JONCCHEMO 07:01
PROVIDERS: ATTEND Internal Medicine Hematology & Oncology
DX: Z53.8 Procedure and treatment not carried out for other reasons (principal)
CPT/HCPCS: 36415; 80053; 85025

== ENCOUNTER 2021-11-17 02:55 | Inpatient (IN) | payer OTHER ==
[2021-11-17 03:14] VITALS: BMI 27.4
[2021-11-17] MEDS ORDERED: morphine CARPU-JECT 2 MG/1 ML DISP.SYRIN IM ONE (03:37)
[2021-11-17] MEDS ORDERED: morphine SULFATE 4 MG/ML VIAL ONE ×2 (03:45→06:00)
[2021-11-17 05:28] LABS: BASO % 0.4 % (0-2.0); EOS % 0.3 % (0-4.5); HEMATOCRIT 34.9 % (32.4-45.2); HEMOGLOBIN 11.8 GM/dL (10.7-15.3); LYMPH % 7.9 % (8-40); MCH 28.7 pg (25.7-33.7); MCHC 33.9 g/dl (32.0-36.0); MEAN CELL VOLUME 84.5 fl (80-96); MEAN PLT VOLUME 8.3 fl (7.5-11.1); MONO % 6.1 % (3.8-10.2); NEUT % 85.3 % (42.8-82.8); PLATELET COUNT 122 10^3/uL (134-434); RBC 4.13 M/mm3 (3.60-5.2); RDW 15.1 % (11.6-15.6); WHITE BLOOD COUNT 9.3 K/mm3 (4.0-10.0)
[2021-11-17 05:49] LABS: ALBUMIN 3.5 g/dl (3.4-5.0); BLOOD UREA NITROGEN 13.1 mg/dL (7-18); CALCIUM 8.8 mg/dL (8.5-10.1)
[2021-11-17 05:52] LABS: CREATININE 0.7 mg/dL (0.55-1.3)
[2021-11-17 05:54] LABS: BILIRUBIN,TOTAL 1.5 mg/dL (0.2-1); TOT PROT 6.3 g/dl (6.4-8.2)
[2021-11-17] MEDS ORDERED: morphine CARPU-JECT 4 MG/1 ML DISP.SYRIN IVPUSH ONE (05:54)
[2021-11-17 06:06] LABS: INR 1.17 (0.83-1.09); PROTHROMBIN TIME (PATIENT) 13.5 SEC (9.7-13.0)
[2021-11-17 06:08] LABS: ACTIVATED PTT 29.5 SECONDS (25.2-36.5)
[2021-11-17] MEDS ORDERED: ACETAMINOPHEN INJECTION 100 ML IVPB ONE (08:38)
[2021-11-17] MEDS: ACETAMINOPHEN 1000 MG/100 ML BAG IVPB PRN ×2 (08:45→22:58)
[2021-11-17] MEDS ORDERED: ALBUTEROL SO4 HFA INHALER IH PRN (12:08)
[2021-11-17] MEDS ORDERED: ONDANSETRON *ODT* 4 MG TABLET SL PRN ×2 (12:08→13:26)
[2021-11-17] MEDS ORDERED: FENTANYL PATCH WASTE MC PRN (12:08)
[2021-11-17] MEDS ORDERED: ACETAMINOPHEN 325 MG TABLET (FP) PO PRN (12:10)
[2021-11-17] MEDS ORDERED: OFLOXACIN 0.3% OPHTHALMIC SOLUTION 5 ML BOTTLE OS SCH (12:15)
[2021-11-17] MEDS ORDERED: fentaNYL 100mcg/hr PATCH.TD72 TD SCH (13:30)
[2021-11-17] MEDS: morphine SULFATE 4 MG/ML VIAL IVPUSH PRN ×2 (15:03→20:16)
[2021-11-17] MEDS: INSULIN (NOVOLOG) ASPART 100 UNITS/ML 10ML VIAL SQ SCH (18:05)
[2021-11-17] MEDS: metFORMIN HCL 500 MG TABLET (FP) PO SCH (18:08)
[2021-11-17] MEDS ORDERED: ESCITALOPRAM OXALATE 10 MG TABLET ONE (21:02)
[2021-11-17] MEDS: METOPROLOL TARTRATE 50 MG TABLET (FP) PO SCH (21:09)
[2021-11-17] MEDS ORDERED: MONTELUKAST NA 10 MG TABLET PO SCH (22:00)
[2021-11-17] MEDS ORDERED: ESCITALOPRAM OXALATE 20 MG TABLET PO SCH (22:00)
[2021-11-18] MEDS: ACETAMINOPHEN 1000 MG/100 ML BAG IVPB PRN ×2 (04:30→10:50)
[2021-11-18] MEDS: INSULIN (NOVOLOG) ASPART 100 UNITS/ML 10ML VIAL SQ SCH ×2 (06:15→20:23)
[2021-11-18] MEDS: metFORMIN HCL 500 MG TABLET (FP) PO SCH ×2 (06:16→20:23)
[2021-11-18] MEDS: morphine SULFATE 4 MG/ML VIAL IVPUSH PRN ×2 (08:53→20:35)
[2021-11-18] MEDS: METOPROLOL TARTRATE 50 MG TABLET (FP) PO SCH ×2 (09:26→22:21)
[2021-11-18] MEDS ORDERED: SPIRONOLACTONE 25 MG TABLET PO SCH (10:00)
[2021-11-18] MEDS ORDERED: TIOTROPIUM BROMIDE 2.5 MCG (SPIRIVA) RESPIMAT INHALER IH SCH (10:00)
[2021-11-18] MEDS ORDERED: PANTOPRAZOLE 40 MG TABLET PO SCH (10:00)
[2021-11-18] MEDS ORDERED: ACETAMINOPHEN 1000 MG/100 ML BAG IVPB PRN (12:40)
[2021-11-18 14:05] LABS: URINE APPEARANCE CLEAR; URINE BILIRUBIN NEGATIVE (NEGATIVE); URINE COLOR YELLOW; URINE GLUCOSE (UA) NEGATIVE (NEGATIVE); URINE KETONE NEGATIVE (NEGATIVE); URINE LEUK ESTERASE NEGATIVE (NEGATIVE); URINE NITRITE NEGATIVE (NEGATIVE); URINE PROTEIN NEGATIVE (NEGATIVE)
[2021-11-18] MEDS ORDERED: ONDANSETRON 4 MG/2 ML VIAL IVPUSH PRN ×2 (14:24→17:36)
[2021-11-18] MEDS ORDERED: HYDROmorphone HCl 2 MG/ML VIAL IVPUSH PRN ×2 (14:25→17:36)
[2021-11-18] MEDS ORDERED: LACTATED RINGERS SOLUTION 1,000 ML IV SCH (14:30)
[2021-11-18] MEDS ORDERED: MIDAZOLAM HCL 2 MG/2 ML SINGLE DOSE VIAL ONE (14:31)
[2021-11-18] MEDS ORDERED: PROPOFOL 20 ML ONE (14:31)
[2021-11-18] MEDS ORDERED: ceFAZolin SODIUM 1 GM VIAL IVPB ONE (15:20)
[2021-11-18] MEDS ORDERED: HYDROmorphone HCl 2 MG/ML VIAL ONE (17:24)
[2021-11-18] MEDS ORDERED: HYDROmorphone HCl 2 MG/ML VIAL IVPUSH ONE ×4 (17:25→18:25)
[2021-11-18] MEDS ORDERED: ONDANSETRON *ODT* 4 MG TABLET SL PRN (17:36)
[2021-11-18] MEDS ORDERED: ALBUTEROL SO4 HFA INHALER IH PRN (17:36)
[2021-11-18] MEDS: LACTATED RINGERS SOLUTION 1,000 ML IV SCH (20:22)
[2021-11-18] MEDS: MONTELUKAST NA 10 MG TABLET PO SCH (22:21)
[2021-11-18] MEDS: ESCITALOPRAM OXALATE 20 MG TABLET PO SCH (22:21)
[2021-11-19] MEDS: CEFAZOLIN 1 GM in DEXTROSE 5%-WATER - 1 GM/50 ML IVPB IVPB SCH ×3 (01:19→17:17)
[2021-11-19] MEDS: morphine SULFATE 4 MG/ML VIAL IVPUSH PRN (05:37)
[2021-11-19] MEDS: INSULIN SLIDING SCALE (NOVOLOG) 1 VIAL SQ SCH ×2 (06:22→17:15)
[2021-11-19] MEDS: metFORMIN HCL 500 MG TABLET (FP) PO SCH ×2 (06:25→17:15)
[2021-11-19] MEDS: LACTATED RINGERS SOLUTION 1,000 ML IV SCH ×2 (10:15→18:52)
[2021-11-19] MEDS: PANTOPRAZOLE 40 MG TABLET PO SCH (10:17)
[2021-11-19] MEDS: SPIRONOLACTONE 25 MG TABLET PO SCH (10:17)
[2021-11-19] MEDS: METOPROLOL TARTRATE 50 MG TABLET (FP) PO SCH ×2 (10:17→22:49)
[2021-11-19] MEDS: ACETAMINOPHEN 1000 MG/100 ML BAG IVPB PRN (10:41)
[2021-11-19] MEDS ORDERED: morphine SULFATE 4 MG/ML VIAL IVPUSH PRN (13:30)
[2021-11-19] MEDS: TIOTROPIUM BROMIDE 2.5 MCG (SPIRIVA) RESPIMAT INHALER IH SCH (13:53)
[2021-11-19] MEDS: fentaNYL 100mcg/hr PATCH.TD72 TD SCH (13:53)
[2021-11-19] MEDS: PORTA CATH FLUSH 10 ML IVPUSH PRN (14:01)
[2021-11-19] MEDS: FENTANYL PATCH WASTE MC PRN (14:02)
[2021-11-19] MEDS: ENOXAPARIN NA (PORCINE) 40 MG/0.4 ML DISP.SYRIN SQ SCH (17:15)
[2021-11-19] MEDS: SYSTANE LUBRICANT EYE OS SCH ×2 (21:02→23:07)
[2021-11-19] MEDS ORDERED: ESCITALOPRAM OXALATE 10 MG TABLET ONE (21:57)
[2021-11-19] MEDS: MONTELUKAST NA 10 MG TABLET PO SCH (22:49)
[2021-11-19] MEDS: ESCITALOPRAM OXALATE 20 MG TABLET PO SCH (22:50)
[2021-11-19] MEDS: FAMOTIDINE 20 MG/50 ML IVPB 20 MG/50 ML MG IVPB SCH (22:53)
[2021-11-19] MEDS: VANCOMYCIN OS SCH ×2 (23:02→23:03)
[2021-11-19] MEDS: PREDNISOLONE ACETATE 1% OS SCH (23:04)
[2021-11-19] MEDS: ERYTHROMYCIN 0.5% OS SCH (23:05)
[2021-11-19] MEDS: CYCLOPENTOLATE 1% OS SCH (23:06)
[2021-11-19] MEDS: EYE OS SCH (23:06)
[2021-11-20] MEDS: VANCOMYCIN OS SCH ×19 (00:54→22:57)
[2021-11-20] MEDS: SYSTANE LUBRICANT EYE OS SCH ×10 (01:41→21:37)
[2021-11-20] MEDS: INSULIN SLIDING SCALE (NOVOLOG) 1 VIAL SQ SCH ×2 (06:33→18:16)
[2021-11-20] MEDS: metFORMIN HCL 500 MG TABLET (FP) PO SCH ×2 (06:33→18:16)
[2021-11-20] MEDS: ERYTHROMYCIN 0.5% OS SCH ×2 (10:47→21:36)
[2021-11-20] MEDS: EYE OS SCH ×2 (10:47→21:36)
[2021-11-20] MEDS: CYCLOPENTOLATE 1% OS SCH ×2 (10:47→21:36)
[2021-11-20] MEDS: PREDNISOLONE ACETATE 1% OS SCH ×2 (10:47→21:36)
[2021-11-20] MEDS: PANTOPRAZOLE 40 MG TABLET PO SCH (10:55)
[2021-11-20] MEDS: SPIRONOLACTONE 25 MG TABLET PO SCH (10:55)
[2021-11-20] MEDS: ENOXAPARIN NA (PORCINE) 40 MG/0.4 ML DISP.SYRIN SQ SCH (10:55)
[2021-11-20] MEDS: METOPROLOL TARTRATE 50 MG TABLET (FP) PO SCH ×2 (10:55→21:36)
[2021-11-20] MEDS: TIOTROPIUM BROMIDE 2.5 MCG (SPIRIVA) RESPIMAT INHALER IH SCH (11:00)
[2021-11-20] MEDS: LACTATED RINGERS SOLUTION 1,000 ML IV SCH (18:30)
[2021-11-20 20:22] LABS: PH,URINE 7.5 (5.0-8.0); URINE APPEARANCE CLEAR; URINE BILIRUBIN NEGATIVE (NEGATIVE); URINE COLOR YELLOW; URINE GLUCOSE (UA) NEGATIVE (NEGATIVE); URINE KETONE NEGATIVE (NEGATIVE); URINE LEUK ESTERASE NEGATIVE (NEGATIVE); URINE NITRITE NEGATIVE (NEGATIVE); URINE PROTEIN NEGATIVE (NEGATIVE)
[2021-11-20] MEDS ORDERED: ESCITALOPRAM OXALATE 10 MG TABLET ONE (21:28)
[2021-11-20] MEDS: MONTELUKAST NA 10 MG TABLET PO SCH (21:31)
[2021-11-20] MEDS: ESCITALOPRAM OXALATE 20 MG TABLET PO SCH (21:35)
[2021-11-20] MEDS: FAMOTIDINE 20 MG/50 ML IVPB 20 MG/50 ML MG IVPB SCH (21:36)
[2021-11-21] MEDS: VANCOMYCIN OS SCH ×15 (01:08→22:24)
[2021-11-21] MEDS: SYSTANE LUBRICANT EYE OS SCH ×9 (01:08→22:23)
[2021-11-21] MEDS: INSULIN SLIDING SCALE (NOVOLOG) 1 VIAL SQ SCH ×2 (07:24→17:56)
[2021-11-21] MEDS: metFORMIN HCL 500 MG TABLET (FP) PO SCH ×2 (07:32→17:55)
[2021-11-21 08:43] LABS: BASO % 0.5 % (0-2.0); EOS % 2.7 % (0-4.5); HEMATOCRIT 24.8 % (32.4-45.2); HEMOGLOBIN 8.5 GM/dL (10.7-15.3); LYMPH % 29.8 % (8-40); MCH 29.2 pg (25.7-33.7); MCHC 34.3 g/dl (32.0-36.0); MEAN CELL VOLUME 85.1 fl (80-96); MEAN PLT VOLUME 9.1 fl (7.5-11.1); MONO % 11.2 % (3.8-10.2); NEUT % 55.8 % (42.8-82.8); PLATELET COUNT 88 10^3/uL (134-434); RBC 2.91 M/mm3 (3.60-5.2); RDW 14.8 % (11.6-15.6); WHITE BLOOD COUNT 3.1 K/mm3 (4.0-10.0)
[2021-11-21 09:03] LABS: BLOOD UREA NITROGEN 6.9 mg/dL (7-18); CALCIUM 8.3 mg/dL (8.5-10.1)
[2021-11-21 09:06] LABS: CREATININE 0.5 mg/dL (0.55-1.3)
[2021-11-21 09:08] LABS: BILIRUBIN,TOTAL 1.4 mg/dL (0.2-1)
[2021-11-21 09:15] LABS: ALBUMIN 2.4 g/dl (3.4-5.0)
[2021-11-21] MEDS ORDERED: POLYETHYLENE GLYCOL (HEALTHYLAX) 3350 17 GM PACKET PO PRN (09:32)
[2021-11-21] MEDS: LACTULOSE 20 GM/30 ML UDC (FOR ORAL USE ONLY) PO SCH ×2 (10:42→22:26)
[2021-11-21] MEDS: METOPROLOL TARTRATE 50 MG TABLET (FP) PO SCH ×2 (10:42→22:29)
[2021-11-21] MEDS: PANTOPRAZOLE 40 MG TABLET PO SCH (10:43)
[2021-11-21] MEDS: ERYTHROMYCIN 0.5% OS SCH ×2 (10:43→22:26)
[2021-11-21] MEDS: PREDNISOLONE ACETATE 1% OS SCH ×2 (10:43→22:25)
[2021-11-21] MEDS: CYCLOPENTOLATE 1% OS SCH (10:43)
[2021-11-21] MEDS: SPIRONOLACTONE 25 MG TABLET PO SCH (10:43)
[2021-11-21] MEDS: EYE OS SCH (10:43)
[2021-11-21] MEDS: ENOXAPARIN NA (PORCINE) 40 MG/0.4 ML DISP.SYRIN SQ SCH (10:43)
[2021-11-21] MEDS: TIOTROPIUM BROMIDE 2.5 MCG (SPIRIVA) RESPIMAT INHALER IH SCH (11:13)
[2021-11-21] MEDS: PT OWN MED (PYXIS) OS SCH ×2 (14:01→22:26)
[2021-11-21] MEDS: fentaNYL 100mcg/hr PATCH.TD72 TD SCH (15:27)
[2021-11-21] MEDS: FENTANYL PATCH WASTE MC PRN (15:35)
[2021-11-21] MEDS: DOXYCYCLINE HYCLATE 100 MG CAPSULE PO SCH (17:55)
[2021-11-21] MEDS ORDERED: ESCITALOPRAM OXALATE 10 MG TABLET ONE (22:06)
[2021-11-21] MEDS: LACTATED RINGERS SOLUTION 1,000 ML IV SCH (22:21)
[2021-11-21] MEDS: OFLOXACIN 0.3% OPHTHALMIC SOLUTION 5 ML BOTTLE OP SCH (22:22)
[2021-11-21] MEDS: ESCITALOPRAM OXALATE 20 MG TABLET PO SCH (22:24)
[2021-11-21] MEDS: FAMOTIDINE 20 MG/50 ML IVPB 20 MG/50 ML MG IVPB SCH (22:25)
[2021-11-21] MEDS: MONTELUKAST NA 10 MG TABLET PO SCH (22:25)
[2021-11-22] MEDS: SYSTANE LUBRICANT EYE OS SCH ×10 (01:05→22:40)
[2021-11-22] MEDS: OFLOXACIN 0.3% OPHTHALMIC SOLUTION 5 ML BOTTLE OP SCH ×4 (01:05→18:13)
[2021-11-22] MEDS: VANCOMYCIN OS SCH ×18 (01:06→23:39)
[2021-11-22] MEDS: PT OWN MED (PYXIS) OS SCH ×3 (06:24→22:43)
[2021-11-22] MEDS: metFORMIN HCL 500 MG TABLET (FP) PO SCH ×2 (06:40→17:44)
[2021-11-22] MEDS: INSULIN SLIDING SCALE (NOVOLOG) 1 VIAL SQ SCH ×2 (06:40→17:41)
[2021-11-22] MEDS: HYDROmorphone HCL 2 MG TABLET PO PRN ×2 (08:15→23:20)
[2021-11-22 09:11] LABS: BASO % 0.7 % (0-2.0); EOS % 4.4 % (0-4.5); HEMATOCRIT 23.2 % (32.4-45.2); HEMOGLOBIN 7.9 GM/dL (10.7-15.3); LYMPH % 28.4 % (8-40); MCHC 34.1 g/dl (32.0-36.0); MEAN CELL VOLUME 85.2 fl (80-96); MONO % 12.5 % (3.8-10.2); PLATELET COUNT 92 10^3/uL (134-434); RBC 2.73 M/mm3 (3.60-5.2); RDW 15.1 % (11.6-15.6); WHITE BLOOD COUNT 2.6 K/mm3 (4.0-10.0)
[2021-11-22] MEDS: TIOTROPIUM BROMIDE 2.5 MCG (SPIRIVA) RESPIMAT INHALER IH SCH (10:10)
[2021-11-22] MEDS: LACTULOSE 20 GM/30 ML UDC (FOR ORAL USE ONLY) PO SCH ×2 (10:46→22:41)
[2021-11-22] MEDS: DOXYCYCLINE HYCLATE 100 MG CAPSULE PO SCH ×2 (10:47→17:44)
[2021-11-22] MEDS: METOPROLOL TARTRATE 50 MG TABLET (FP) PO SCH ×2 (10:47→22:41)
[2021-11-22] MEDS: PANTOPRAZOLE 40 MG TABLET PO SCH (10:47)
[2021-11-22] MEDS: ENOXAPARIN NA (PORCINE) 40 MG/0.4 ML DISP.SYRIN SQ SCH (10:49)
[2021-11-22] MEDS: ERYTHROMYCIN 0.5% OS SCH ×2 (10:50→22:43)
[2021-11-22] MEDS: PREDNISOLONE ACETATE 1% OS SCH ×2 (10:50→22:43)
[2021-11-22] MEDS: SPIRONOLACTONE 25 MG TABLET PO SCH (11:10)
[2021-11-22] MEDS ORDERED: REMDESIVIR 200 MG in SODIUM CHLORIDE 250 ML IVPB ONE (18:30)
[2021-11-22] MEDS ORDERED: ESCITALOPRAM OXALATE 10 MG TABLET ONE (22:02)
[2021-11-22] MEDS: MONTELUKAST NA 10 MG TABLET PO SCH (22:41)
[2021-11-22] MEDS: ESCITALOPRAM OXALATE 20 MG TABLET PO SCH (22:41)
[2021-11-23] MEDS: SYSTANE LUBRICANT EYE OS SCH ×12 (02:22→21:53)
[2021-11-23] MEDS: OFLOXACIN 0.3% OPHTHALMIC SOLUTION 5 ML BOTTLE OP SCH ×4 (02:22→17:10)
[2021-11-23] MEDS: VANCOMYCIN OS SCH ×21 (02:24→23:45)
[2021-11-23] MEDS: HYDROmorphone HCL 2 MG TABLET PO PRN ×2 (05:27→21:58)
[2021-11-23] MEDS: PT OWN MED (PYXIS) OS SCH ×3 (06:45→22:00)
[2021-11-23] MEDS: metFORMIN HCL 500 MG TABLET (FP) PO SCH ×2 (06:47→17:19)
[2021-11-23] MEDS: INSULIN SLIDING SCALE (NOVOLOG) 1 VIAL SQ SCH ×2 (06:48→17:19)
[2021-11-23] MEDS: ENOXAPARIN NA (PORCINE) 40 MG/0.4 ML DISP.SYRIN SQ SCH (10:39)
[2021-11-23] MEDS: DOXYCYCLINE HYCLATE 100 MG CAPSULE PO SCH ×2 (10:39→17:10)
[2021-11-23] MEDS: METOPROLOL TARTRATE 50 MG TABLET (FP) PO SCH ×2 (10:39→21:46)
[2021-11-23] MEDS: PANTOPRAZOLE 40 MG TABLET PO SCH (10:39)
[2021-11-23] MEDS: LACTULOSE 20 GM/30 ML UDC (FOR ORAL USE ONLY) PO SCH ×2 (10:39→21:48)
[2021-11-23] MEDS: PREDNISOLONE ACETATE 1% OS SCH ×2 (10:46→22:00)
[2021-11-23] MEDS: ERYTHROMYCIN 0.5% OS SCH ×2 (10:46→22:00)
[2021-11-23] MEDS: TIOTROPIUM BROMIDE 2.5 MCG (SPIRIVA) RESPIMAT INHALER IH SCH (10:47)
[2021-11-23] MEDS: ACETAMINOPHEN 325 MG TABLET (FP) PO PRN (11:25)
[2021-11-23] MEDS: SPIRONOLACTONE 25 MG TABLET PO SCH (11:25)
[2021-11-23] MEDS: REMDESIVIR 100 MG in SODIUM CHLORIDE 250 ML IVPB SCH (14:44)
[2021-11-23] MEDS ORDERED: FENTANYL PATCH WASTE MC PRN (16:19)
[2021-11-23] MEDS: fentaNYL 100mcg/hr PATCH.TD72 TD SCH ×2 (16:37→17:12)
[2021-11-23] MEDS: FENTANYL PATCH WASTE MC PRN (17:19)
[2021-11-23] MEDS ORDERED: ESCITALOPRAM OXALATE 10 MG TABLET ONE (21:31)
[2021-11-23] MEDS: ESCITALOPRAM OXALATE 20 MG TABLET PO SCH (21:47)
[2021-11-23] MEDS: MONTELUKAST NA 10 MG TABLET PO SCH (21:47)
[2021-11-23] MEDS ORDERED: INSULIN (NOVOLOG) ASPART 100 UNITS/ML 10ML VIAL ONE (21:57)
[2021-11-24] MEDS: VANCOMYCIN OS SCH ×22 (01:33→23:05)
[2021-11-24] MEDS: SYSTANE LUBRICANT EYE OS SCH ×12 (02:00→21:04)
[2021-11-24] MEDS: HYDROmorphone HCL 2 MG TABLET PO PRN ×2 (04:03→16:02)
[2021-11-24] MEDS: OFLOXACIN 0.3% OPHTHALMIC SOLUTION 5 ML BOTTLE OP SCH ×4 (06:26→17:59)
[2021-11-24] MEDS: PT OWN MED (PYXIS) OS SCH (06:27)
[2021-11-24] MEDS: INSULIN SLIDING SCALE (NOVOLOG) 1 VIAL SQ SCH ×2 (06:28→16:09)
[2021-11-24] MEDS: metFORMIN HCL 500 MG TABLET (FP) PO SCH ×2 (06:30→16:04)
[2021-11-24 06:34] VITALS: RESP 18
[2021-11-24] MEDS: SPIRONOLACTONE 25 MG TABLET PO SCH (09:13)
[2021-11-24] MEDS: PANTOPRAZOLE 40 MG TABLET PO SCH (09:14)
[2021-11-24] MEDS: LACTULOSE 20 GM/30 ML UDC (FOR ORAL USE ONLY) PO SCH ×2 (09:14→21:03)
[2021-11-24] MEDS: TIOTROPIUM BROMIDE 2.5 MCG (SPIRIVA) RESPIMAT INHALER IH SCH (09:14)
[2021-11-24] MEDS: METOPROLOL TARTRATE 50 MG TABLET (FP) PO SCH ×2 (09:14→21:02)
[2021-11-24] MEDS: DOXYCYCLINE HYCLATE 100 MG CAPSULE PO SCH ×2 (09:15→17:59)
[2021-11-24] MEDS: ENOXAPARIN NA (PORCINE) 40 MG/0.4 ML DISP.SYRIN SQ SCH (09:17)
[2021-11-24] MEDS: ERYTHROMYCIN 0.5% OS SCH ×2 (09:28→21:04)
[2021-11-24 09:47] LABS: HEMATOCRIT 29.2 % (32.4-45.2); HEMOGLOBIN 9.8 GM/dL (10.7-15.3); MCH 28.4 pg (25.7-33.7); MCHC 33.7 g/dl (32.0-36.0); MEAN CELL VOLUME 84.3 fl (80-96); MEAN PLT VOLUME 8.9 fl (7.5-11.1); PLATELET COUNT 139 10^3/uL (134-434); RBC 3.46 M/mm3 (3.60-5.2); RDW 14.9 % (11.6-15.6); WHITE BLOOD COUNT 4.2 K/mm3 (4.0-10.0)
[2021-11-24] MEDS: prednisoLONE ACETATE 1% OPHTH SUSP 5 ML BOTTLE OS SCH ×2 (10:53→21:04)
[2021-11-24] MEDS: CYCLOPENTOLATE HCL 1% OPHTH SOLN 2 ML BOTTLE OS SCH ×2 (14:50→21:04)
[2021-11-24] MEDS: REMDESIVIR 100 MG in SODIUM CHLORIDE 250 ML IVPB SCH (15:39)
[2021-11-24] MEDS ORDERED: ESCITALOPRAM OXALATE 10 MG TABLET ONE (20:48)
[2021-11-24] MEDS: MONTELUKAST NA 10 MG TABLET PO SCH (21:02)
[2021-11-24] MEDS: ESCITALOPRAM OXALATE 20 MG TABLET PO SCH (21:03)
[2021-11-25] MEDS: VANCOMYCIN OS SCH ×25 (00:01→23:50)
[2021-11-25] MEDS: SYSTANE LUBRICANT EYE OS SCH ×12 (00:02→22:32)
[2021-11-25] MEDS: OFLOXACIN 0.3% OPHTHALMIC SOLUTION 5 ML BOTTLE OP SCH ×4 (00:02→18:00)
[2021-11-25] MEDS: HYDROmorphone HCL 2 MG TABLET PO PRN ×3 (01:16→22:20)
[2021-11-25] MEDS: CYCLOPENTOLATE HCL 1% OPHTH SOLN 2 ML BOTTLE OS SCH ×3 (06:27→22:12)
[2021-11-25] MEDS: INSULIN SLIDING SCALE (NOVOLOG) 1 VIAL SQ SCH ×2 (06:37→16:31)
[2021-11-25] MEDS: metFORMIN HCL 500 MG TABLET (FP) PO SCH ×2 (06:37→16:54)
[2021-11-25] MEDS ORDERED: INSULIN (NOVOLOG) ASPART 100 UNITS/ML 10ML VIAL ONE (06:40)
[2021-11-25] MEDS: ENOXAPARIN NA (PORCINE) 40 MG/0.4 ML DISP.SYRIN SQ SCH (09:14)
[2021-11-25] MEDS: SPIRONOLACTONE 25 MG TABLET PO SCH (09:14)
[2021-11-25] MEDS: LACTULOSE 20 GM/30 ML UDC (FOR ORAL USE ONLY) PO SCH ×2 (09:14→22:11)
[2021-11-25] MEDS: PANTOPRAZOLE 40 MG TABLET PO SCH (09:15)
[2021-11-25] MEDS: METOPROLOL TARTRATE 50 MG TABLET (FP) PO SCH ×2 (09:15→22:11)
[2021-11-25] MEDS: DOXYCYCLINE HYCLATE 100 MG CAPSULE PO SCH ×2 (09:15→17:39)
[2021-11-25] MEDS: ERYTHROMYCIN 0.5% OS SCH ×2 (09:16→22:13)
[2021-11-25] MEDS: prednisoLONE ACETATE 1% OPHTH SUSP 5 ML BOTTLE OS SCH ×2 (09:16→22:12)
[2021-11-25] MEDS: TIOTROPIUM BROMIDE 2.5 MCG (SPIRIVA) RESPIMAT INHALER IH SCH (09:16)
[2021-11-25] MEDS: REMDESIVIR 100 MG in SODIUM CHLORIDE 250 ML IVPB SCH (16:53)
[2021-11-25] MEDS: PORTA CATH FLUSH 10 ML IVPUSH PRN (18:00)
[2021-11-25] MEDS ORDERED: ESCITALOPRAM OXALATE 10 MG TABLET ONE (21:40)
[2021-11-25] MEDS: ESCITALOPRAM OXALATE 20 MG TABLET PO SCH (22:11)
[2021-11-25] MEDS: MONTELUKAST NA 10 MG TABLET PO SCH (22:12)
[2021-11-26] MEDS: OFLOXACIN 0.3% OPHTHALMIC SOLUTION 5 ML BOTTLE OP SCH ×4 (00:34→17:58)
[2021-11-26] MEDS: SYSTANE LUBRICANT EYE OS SCH ×10 (00:34→17:59)
[2021-11-26] MEDS: VANCOMYCIN OS SCH ×18 (00:35→17:59)
[2021-11-26] MEDS: HYDROmorphone HCL 2 MG TABLET PO PRN ×2 (04:11→11:27)
[2021-11-26] MEDS: CYCLOPENTOLATE HCL 1% OPHTH SOLN 2 ML BOTTLE OS SCH ×2 (06:39→14:11)
[2021-11-26] MEDS: metFORMIN HCL 500 MG TABLET (FP) PO SCH ×2 (06:41→16:46)
[2021-11-26] MEDS ORDERED: SODIUM CHLORIDE 1,000 ML IV SCH (06:45)
[2021-11-26] MEDS: INSULIN SLIDING SCALE (NOVOLOG) 1 VIAL SQ SCH ×2 (06:47→16:46)
[2021-11-26] MEDS: ACETAMINOPHEN 325 MG TABLET (FP) PO PRN (07:06)
[2021-11-26] MEDS: PANTOPRAZOLE 40 MG TABLET PO SCH (09:29)
[2021-11-26] MEDS: LACTULOSE 20 GM/30 ML UDC (FOR ORAL USE ONLY) PO SCH (09:29)
[2021-11-26] MEDS: METOPROLOL TARTRATE 50 MG TABLET (FP) PO SCH (09:29)
[2021-11-26] MEDS: ENOXAPARIN NA (PORCINE) 40 MG/0.4 ML DISP.SYRIN SQ SCH (09:29)
[2021-11-26] MEDS: DOXYCYCLINE HYCLATE 100 MG CAPSULE PO SCH ×2 (09:29→17:39)
[2021-11-26] MEDS: SPIRONOLACTONE 25 MG TABLET PO SCH (09:29)
[2021-11-26] MEDS: ERYTHROMYCIN 0.5% OS SCH (09:31)
[2021-11-26] MEDS: TIOTROPIUM BROMIDE 2.5 MCG (SPIRIVA) RESPIMAT INHALER IH SCH (09:31)
[2021-11-26] MEDS: prednisoLONE ACETATE 1% OPHTH SUSP 5 ML BOTTLE OS SCH (09:31)
[2021-11-26] MEDS: REMDESIVIR 100 MG in SODIUM CHLORIDE 250 ML IVPB SCH (14:12)
[2021-11-26 14:50] LABS: BASO % 0.7 % (0-2.0); EOS % 4.2 % (0-4.5); HEMOGLOBIN 9.9 GM/dL (10.7-15.3); LYMPH % 23.4 % (8-40); MCH 28.7 pg (25.7-33.7); MCHC 34.2 g/dl (32.0-36.0); MEAN CELL VOLUME 83.7 fl (80-96); MEAN PLT VOLUME 8.8 fl (7.5-11.1); MONO % 9.7 % (3.8-10.2); PLATELET COUNT 169 10^3/uL (134-434); RBC 3.46 M/mm3 (3.60-5.2); RDW 15.2 % (11.6-15.6); WHITE BLOOD COUNT 4.7 K/mm3 (4.0-10.0)
[2021-11-26 14:53] VITALS: BP 120/61; PULSE 69; TEMP 97.8
[2021-11-26 15:15] LABS: CALCIUM 8.7 mg/dL (8.5-10.1)
[2021-11-26 15:16] LABS: ALBUMIN 2.7 g/dl (3.4-5.0); BLOOD UREA NITROGEN 11.4 mg/dL (7-18)
[2021-11-26 15:19] LABS: CREATININE 0.6 mg/dL (0.55-1.3)
[2021-11-26 15:20] LABS: TOT PROT 5.7 g/dl (6.4-8.2)
[2021-11-26 15:21] LABS: BILIRUBIN,TOTAL 1.2 mg/dL (0.2-1)
[2021-11-26] MEDS: fentaNYL 100mcg/hr PATCH.TD72 TD SCH (16:17)
[2021-11-26] MEDS: FENTANYL PATCH WASTE MC PRN (16:33)
== END 2021-11-26 18:30 | DRG 480 ==
LOC: JER 02:55 → JERBED 05:59 → J8W 13:50 → JERBED 13:50 → J8W 14:23 → J6S 11-23 00:09
PROVIDERS: ADMIT Internal Medicine; ATTEND Internal Medicine
PROC: 0QS706Z Reposition Left Upper Femur with Intramedullary Internal Fixation Device, Open Approach (ICD-10-PCS; principal; 2021-11-18 15:00)
PROC: 0PSJ34Z Reposition Left Radius with Internal Fixation Device, Percutaneous Approach (ICD-10-PCS; 2021-11-18 15:00)
PROC: XW033E5 Introduction of Remdesivir Anti-infective into Peripheral Vein, Percutaneous Approach, New Technology Group 5 (ICD-10-PCS; 2021-11-22)
DX: S72.142A Displaced intertrochanteric fracture of left femur, initial encounter for closed fracture (principal); J12.82 Pneumonia due to coronavirus disease 2019; U07.1 COVID-19; S52.532A Colles' fracture of left radius, initial encounter for closed fracture; D61.818 Other pancytopenia; I10 Essential (primary) hypertension; E11.9 Type 2 diabetes mellitus without complications; J44.9 Chronic obstructive pulmonary disease, unspecified; K74.60 Unspecified cirrhosis of liver; G43.909 Migraine, unspecified, not intractable, without status migrainosus; E78.5 Hyperlipidemia, unspecified; F17.200 Nicotine dependence, unspecified, uncomplicated; C50.919 Malignant neoplasm of unspecified site of unspecified female breast; W19.XXXA Unspecified fall, initial encounter; Y93.9 Activity, unspecified; Y92.89 Other specified places as the place of occurrence of the external cause; Y99.9 Unspecified external cause status
CPT/HCPCS: 36415; 70450-TC; 71045-TC-FY; 71250-TC; 72125-TC; 72170-TC-FY; 73110-TC-LT-FY; 73130-TC-LT-FY; 73552-TC-LT-FY; 74176-TC; 76000-TC-FY; 80053; 80061; 81003; 82962; 83735; 84443; 84484; 84703; 85025; 85027; 85610; 85730; 86300; 86850; 86900; 86901; 87086; 93005; 93010; 93306-TC; 93880-TC; 94010; 94760; 97116-GP; 97161-GP; 99285-25; C9399; C9803-CS; G0378; J1644; U0003; U0005

== ENCOUNTER 2022-03-18 12:52 | Emergency (ER) | payer OTHER ==
[2022-03-18 13:17] VITALS: BP 120/66; PULSE 88; RESP 16; TEMP 97.8; BMI 24.7
== END 2022-03-18 16:30 | disposition home or self-care (01) ==
LOC: JER 12:52
PROC: 0HQKXZZ Repair Right Lower Leg Skin, External Approach (ICD-10-PCS; principal; 2022-03-18)
DX: S81.811A Laceration without foreign body, right lower leg, initial encounter (principal); W22.8XXA Striking against or struck by other objects, initial encounter
CPT/HCPCS: 73590-TC-LT-FY; 99283-25

== ENCOUNTER 2022-08-19 08:12 | Emergency (ER) | payer OTHER ==
[2022-08-19 08:22] VITALS: BP 97/66; PULSE 105; RESP 18; TEMP 98.9; BMI 24.7
[2022-08-19] MEDS ORDERED: DIPHTH,PERTUSS(ACELL),TET 0.5 ML DISP.SYRIN IM ONE ×2 (09:35→10:07)
[2022-08-19 09:45] LABS: PH,URINE 6.5 (5.0-8.0); URINE APPEARANCE CLEAR; URINE BILIRUBIN NEGATIVE (NEGATIVE); URINE COLOR YELLOW; URINE GLUCOSE (UA) NEGATIVE (NEGATIVE); URINE KETONE NEGATIVE (NEGATIVE); URINE LEUK ESTERASE NEGATIVE (NEGATIVE); URINE NITRITE NEGATIVE (NEGATIVE); URINE PROTEIN NEGATIVE (NEGATIVE); URINE UROBILINOGEN 0.2 mg/dL (0.2-1.0)
[2022-08-19 10:22] LABS: HEMATOCRIT 33.4 % (32.4-45.2); HEMOGLOBIN 11.4 GM/dL (10.7-15.3); MEAN CELL VOLUME 85.2 fl (80-96); PLATELET COUNT 150 10^3/uL (134-434); RBC 3.92 M/mm3 (3.60-5.2); RDW 18.8 % (11.6-15.6); WHITE BLOOD COUNT 14.4 K/mm3 (4.0-10.0)
[2022-08-19 10:27] LABS: INR 1.05 (0.83-1.09); PROTHROMBIN TIME (PATIENT) 12.2 SEC (9.7-13.0)
[2022-08-19 10:30] LABS: ACTIVATED PTT 26.2 SECONDS (25.2-36.5)
[2022-08-19 10:34] LABS: POTASSIUM 3.6 mmol/L (3.5-5.1)
[2022-08-19 10:36] LABS: CALCIUM 8.7 mg/dL (8.5-10.1)
[2022-08-19 10:37] LABS: ALBUMIN 3.5 g/dl (3.4-5.0); BLOOD UREA NITROGEN 26.8 mg/dL (7-18); MAGNESIUM 2.4 mg/dL (1.8-2.4)
[2022-08-19 10:41] LABS: TOT PROT 6.2 g/dl (6.4-8.2)
[2022-08-19 10:42] LABS: BILIRUBIN,TOTAL 0.8 mg/dL (0.2-1)
[2022-08-19 10:55] LABS: ANISOCYTOSIS 1+; MACROCYTOSIS 0
== END 2022-08-19 11:41 | disposition home or self-care (01) ==
LOC: JER 08:12
PROC: 3E0234Z Introduction of Serum, Toxoid and Vaccine into Muscle, Percutaneous Approach (ICD-10-PCS; principal; 2022-08-19)
PROC: 3E0234Z Introduction of Serum, Toxoid and Vaccine into Muscle, Percutaneous Approach (ICD-10-PCS; 2022-08-19)
DX: S00.83XA Contusion of other part of head, initial encounter (principal); S00.33XA Contusion of nose, initial encounter; D69.6 Thrombocytopenia, unspecified; R51.9 Headache, unspecified; S00.12XA Contusion of left eyelid and periocular area, initial encounter; W19.XXXA Unspecified fall, initial encounter; Y92.008 Other place in unspecified non-institutional (private) residence as the place of occurrence of the external cause; Z20.822 Contact with and (suspected) exposure to COVID-19
CPT/HCPCS: 0241U-QW; 36415; 70450-TC; 70486-TC; 71045-TC-FY; 72125-TC; 80053; 81003; 83735; 84703; 85025; 85610; 85730; 86850; 86900; 86901; 87086; 90471; 90715; 93005; 93010; 99285-25

== ENCOUNTER 2022-10-12 20:57 | Inpatient (IN) | payer OTHER ==
[2022-10-12 21:04] VITALS: BMI 24.7
[2022-10-12] MEDS ORDERED: ALBUTEROL SO4 2.5/IPRATROPIUM 0.5 INH SOL 3 ML VIAL.NEB. NEB ONE (21:47)
[2022-10-12] MEDS: ALBUTEROL SO4 2.5/IPRATROPIUM 0.5 INH SOL 3 ML VIAL.NEB. NEB SCH ×4 (22:00→23:00)
[2022-10-12 23:05] LABS: BASO % 0.6 % (0-2.0); EOS % 1.7 % (0-4.5); HEMOGLOBIN 12.2 GM/dL (10.7-15.3); LYMPH % 17.2 % (8-40); MCH 27.2 pg (25.7-33.7); MEAN CELL VOLUME 82.5 fl (80-96); MEAN PLT VOLUME 7.9 fl (7.5-11.1); MONO % 11.8 % (3.8-10.2); NEUT % 68.7 % (42.8-82.8); PLATELET COUNT 162 10^3/uL (134-434); RBC 4.49 M/mm3 (3.60-5.2); RDW 18.6 % (11.6-15.6); WHITE BLOOD COUNT 6.4 K/mm3 (4.0-10.0)
[2022-10-12 23:17] LABS: INR 1.11 (0.83-1.09); PROTHROMBIN TIME (PATIENT) 12.9 SEC (9.7-13.0)
[2022-10-12 23:31] LABS: ACTIVATED PTT 28.7 SECONDS (25.2-36.5)
[2022-10-12 23:33] LABS: POTASSIUM 3.8 mmol/L (3.5-5.1)
[2022-10-12 23:35] LABS: ALBUMIN 3.1 g/dl (3.4-5.0)
[2022-10-12 23:36] LABS: MAGNESIUM 1.7 mg/dL (1.8-2.4)
[2022-10-12 23:41] LABS: TOT PROT 5.8 g/dl (6.4-8.2)
[2022-10-12 23:43] LABS: N-TERMINAL BNP 148.2 pg/ml (5-125)
[2022-10-13 00:51] LABS: BLOOD UREA NITROGEN 10.8 mg/dL (7-18); CALCIUM 9.2 mg/dL (8.5-10.1)
[2022-10-13 00:54] LABS: CREATININE 0.8 mg/dL (0.55-1.3)
[2022-10-13] MEDS ORDERED: PIPERACILLIN/TAZOB 4.5 GM 4.5 GM in DEXTROSE 5%-WATER 100 ML IVPB ONE (01:43)
[2022-10-13] MEDS ORDERED: VANCOMYCIN 1 GM in D5W (PRE-DOCKED) 1,000 MG/250 ML (RESTRICTED TO ID ONLY IVPB ONE (01:43)
[2022-10-13] MEDS ORDERED: VANCOMYCIN/WATER FOR INJ (PEG) 1,000 MG/200 ML BAG IVPB ONE (01:58)
[2022-10-13] MEDS ORDERED: PIPERACILLIN/TAZOB 4.5 GM 4.5 GM/100 ML BAG IVPB ONE (01:58)
[2022-10-13] MEDS ORDERED: fentaNYL 100mcg/hr PATCH.TD72 TD SCH (04:15)
[2022-10-13] MEDS ORDERED: MAGNESIUM SULFATE IN WATER 2 GM/50 ML IVPB IVPB ONE (05:30)
[2022-10-13] MEDS ORDERED: MAGNESIUM SULF 50% (8.12 MEQ/2 ML-1 GM VIAL) IVPB ONE (05:30)
[2022-10-13] MEDS ORDERED: ACETAMINOPHEN 500 MG TABLET (FP) PO ONE (05:41)
[2022-10-13 06:36] LABS: HEMATOCRIT 36.7 % (32.4-45.2); HEMOGLOBIN 11.9 GM/dL (10.7-15.3); MCH 27.4 pg (25.7-33.7); MCHC 32.4 g/dl (32.0-36.0); MEAN CELL VOLUME 84.6 fl (80-96); MEAN PLT VOLUME 8.2 fl (7.5-11.1); PLATELET COUNT 167 10^3/uL (134-434); RBC 4.33 M/mm3 (3.60-5.2); RDW 18.3 % (11.6-15.6)
[2022-10-13] MEDS ORDERED: SODIUM CHLORIDE 500 ML IV STA (06:37)
[2022-10-13] MEDS ORDERED: MIDODRINE HCL 5 MG TABLET PO ONE (06:40)
[2022-10-13] MEDS: PANTOPRAZOLE 40 MG TABLET PO SCH (06:51)
[2022-10-13 06:54] LABS: POTASSIUM 4.3 mmol/L (3.5-5.1)
[2022-10-13 06:57] LABS: BLOOD UREA NITROGEN 9.3 mg/dL (7-18); CALCIUM 8.8 mg/dL (8.5-10.1); MAGNESIUM 3.6 mg/dL (1.8-2.4)
[2022-10-13 07:00] LABS: CREATININE 0.9 mg/dL (0.55-1.3); PHOSPHOROUS 3.4 mg/dL (2.5-4.9)
[2022-10-13 07:02] LABS: TOT PROT 5.7 g/dl (6.4-8.2)
[2022-10-13] MEDS ORDERED: PIPERACILLIN/TAZOB 3.375 GM 3.375 GM in DEXTROSE 5%-WATER - 50 ML IVPB SCH (08:00)
[2022-10-13] MEDS ORDERED: FAMOTIDINE 20 MG TABLET PO SCH (10:00)
[2022-10-13] MEDS ORDERED: SUCRALFATE 1 GM TABLET (FP) PO SCH (10:00)
[2022-10-13] MEDS ORDERED: TORSEMIDE 20 MG TABLET (FP) PO SCH (10:00)
[2022-10-13] MEDS ORDERED: ESCITALOPRAM OXALATE 20 MG TABLET PO SCH ×2 (10:00→22:00)
[2022-10-13] MEDS: ENOXAPARIN NA (PORCINE) 40 MG/0.4 ML DISP.SYRIN SQ SCH (12:39)
[2022-10-13] MEDS: LACTULOSE 20 GM/30 ML UDC (FOR ORAL USE ONLY) PO SCH (12:40)
[2022-10-13] MEDS: POTASSIUM CHLORIDE TABS 20 MEQ TABLET.ER (FP) PO SCH ×3 (12:42→16:13)
[2022-10-13] MEDS: PIPERACILLIN/TAZOB 3.375 GM 3.375 GM in DEXTROSE 5%-WATER - 50 ML IVPB SCH ×2 (12:55→18:29)
[2022-10-13] MEDS ORDERED: PNEUMOC 20-VAL CONJ-DIP CRM/PF 0.5 ML SYRINGE IM ONE (14:00)
[2022-10-13] MEDS: TORSEMIDE 20 MG TABLET (FP) PO SCH (16:13)
[2022-10-13] MEDS: SUCRALFATE 1 GM TABLET (FP) PO SCH (16:13)
[2022-10-13] MEDS: POLYMYXIN B SULFATE/TMP 10 ML OPHTHALMIC SOLUTION OS SCH (16:13)
[2022-10-13] MEDS: SPIRONOLACTONE 25 MG TABLET PO SCH (16:13)
[2022-10-13] MEDS ORDERED: ALBUTEROL SO4 2.5/IPRATROPIUM 0.5 INH SOL 3 ML VIAL.NEB. NEB PRN (19:06)
[2022-10-13] MEDS: HYDROmorphone HCL 2 MG TABLET PO PRN (19:08)
[2022-10-13] MEDS ORDERED: ACETAMINOPHEN 1000 MG/100 ML BAG IVPB ONE (21:07)
[2022-10-13] MEDS ORDERED: ESCITALOPRAM OXALATE 10 MG TABLET ONE (21:57)
[2022-10-13] MEDS: FAMOTIDINE 20 MG TABLET PO SCH (22:01)
[2022-10-13] MEDS: CYCLOPENTOLATE HCL 1% OPHTH SOLN 2 ML BOTTLE OS SCH (22:01)
[2022-10-13] MEDS: ESCITALOPRAM OXALATE 20 MG TABLET PO SCH (22:04)
[2022-10-14] MEDS: PIPERACILLIN/TAZOB 3.375 GM 3.375 GM in DEXTROSE 5%-WATER - 50 ML IVPB SCH ×3 (01:42→17:02)
[2022-10-14] MEDS: POLYMYXIN B SULFATE/TMP 10 ML OPHTHALMIC SOLUTION OS SCH ×2 (01:45→14:07)
[2022-10-14] MEDS: SUCRALFATE 1 GM TABLET (FP) PO SCH ×3 (06:06→16:40)
[2022-10-14] MEDS: HYDROmorphone HCL 2 MG TABLET PO PRN (06:06)
[2022-10-14] MEDS: PANTOPRAZOLE 40 MG TABLET PO SCH (06:06)
[2022-10-14] MEDS: CYCLOPENTOLATE HCL 1% OPHTH SOLN 2 ML BOTTLE OS SCH ×2 (06:07→13:32)
[2022-10-14] MEDS: SPIRONOLACTONE 25 MG TABLET PO SCH (09:57)
[2022-10-14] MEDS: LACTULOSE 20 GM/30 ML UDC (FOR ORAL USE ONLY) PO SCH (09:57)
[2022-10-14] MEDS: ENOXAPARIN NA (PORCINE) 40 MG/0.4 ML DISP.SYRIN SQ SCH (09:58)
[2022-10-14] MEDS: fentaNYL 100mcg/hr PATCH.TD72 TD SCH (09:59)
[2022-10-14] MEDS ORDERED: TIOTROPIUM BROMIDE 2.5 MCG (SPIRIVA) RESPIMAT INHALER IH SCH (10:00)
[2022-10-14] MEDS: prednisoLONE ACETATE 1% OPHTH SUSP 5 ML BOTTLE OS SCH (10:09)
[2022-10-14] MEDS: ACETAMINOPHEN/CAFFEINE/BUTALBITAL 1 TAB PO PRN ×2 (13:30→22:31)
[2022-10-14] MEDS: ALBUTEROL SO4 2.5/IPRATROPIUM 0.5 INH SOL 3 ML VIAL.NEB. NEB SCH ×2 (16:10→20:53)
[2022-10-14] MEDS ORDERED: ESCITALOPRAM OXALATE 10 MG TABLET ONE (22:15)
[2022-10-14] MEDS: ESCITALOPRAM OXALATE 20 MG TABLET PO SCH (22:19)
[2022-10-14] MEDS: FAMOTIDINE 20 MG TABLET PO SCH (22:20)
[2022-10-15] MEDS: PIPERACILLIN/TAZOB 3.375 GM 3.375 GM in DEXTROSE 5%-WATER - 50 ML IVPB SCH ×3 (01:58→17:04)
[2022-10-15] MEDS: POLYMYXIN B SULFATE/TMP 10 ML OPHTHALMIC SOLUTION OS SCH ×2 (02:37→13:46)
[2022-10-15] MEDS: SUCRALFATE 1 GM TABLET (FP) PO SCH ×3 (06:20→17:04)
[2022-10-15] MEDS: PANTOPRAZOLE 40 MG TABLET PO SCH (06:20)
[2022-10-15] MEDS: ALBUTEROL SO4 2.5/IPRATROPIUM 0.5 INH SOL 3 ML VIAL.NEB. NEB SCH ×4 (07:56→20:57)
[2022-10-15] MEDS: LACTULOSE 20 GM/30 ML UDC (FOR ORAL USE ONLY) PO SCH (09:44)
[2022-10-15] MEDS: SPIRONOLACTONE 25 MG TABLET PO SCH (09:44)
[2022-10-15] MEDS: ENOXAPARIN NA (PORCINE) 40 MG/0.4 ML DISP.SYRIN SQ SCH (09:44)
[2022-10-15] MEDS: prednisoLONE ACETATE 1% OPHTH SUSP 5 ML BOTTLE OS SCH (09:46)
[2022-10-15] MEDS: POTASSIUM CHLORIDE TABS 20 MEQ TABLET.ER (FP) PO SCH (13:46)
[2022-10-15] MEDS: TORSEMIDE 20 MG TABLET (FP) PO SCH (13:46)
[2022-10-15] MEDS: ACETAMINOPHEN/CAFFEINE/BUTALBITAL 1 TAB PO PRN (17:54)
[2022-10-15] MEDS ORDERED: ESCITALOPRAM OXALATE 10 MG TABLET ONE (22:05)
[2022-10-15] MEDS: FAMOTIDINE 20 MG TABLET PO SCH (22:06)
[2022-10-15] MEDS: ESCITALOPRAM OXALATE 20 MG TABLET PO SCH (22:06)
[2022-10-16] MEDS: PIPERACILLIN/TAZOB 3.375 GM 3.375 GM in DEXTROSE 5%-WATER - 50 ML IVPB SCH ×3 (03:10→16:59)
[2022-10-16] MEDS: POLYMYXIN B SULFATE/TMP 10 ML OPHTHALMIC SOLUTION OS SCH ×2 (03:12→14:50)
[2022-10-16] MEDS: SUCRALFATE 1 GM TABLET (FP) PO SCH ×3 (06:26→16:58)
[2022-10-16] MEDS: PANTOPRAZOLE 40 MG TABLET PO SCH (06:26)
[2022-10-16] MEDS: ALBUTEROL SO4 2.5/IPRATROPIUM 0.5 INH SOL 3 ML VIAL.NEB. NEB SCH ×4 (08:10→20:05)
[2022-10-16] MEDS: SPIRONOLACTONE 25 MG TABLET PO SCH (10:21)
[2022-10-16] MEDS: LACTULOSE 20 GM/30 ML UDC (FOR ORAL USE ONLY) PO SCH (10:22)
[2022-10-16] MEDS: ENOXAPARIN NA (PORCINE) 40 MG/0.4 ML DISP.SYRIN SQ SCH (10:22)
[2022-10-16] MEDS: prednisoLONE ACETATE 1% OPHTH SUSP 5 ML BOTTLE OS SCH (10:22)
[2022-10-16] MEDS ORDERED: ERYTHROMYCIN 0.5% OPHTHALMIC OINTMENT 3.5 GM TUBE OU STA (11:30)
[2022-10-16] MEDS: ACETAMINOPHEN/CAFFEINE/BUTALBITAL 1 TAB PO PRN (17:04)
[2022-10-16] MEDS ORDERED: ESCITALOPRAM OXALATE 10 MG TABLET ONE (21:53)
[2022-10-16] MEDS: FAMOTIDINE 20 MG TABLET PO SCH (22:40)
[2022-10-16] MEDS: ESCITALOPRAM OXALATE 20 MG TABLET PO SCH (22:40)
[2022-10-16] MEDS: ERYTHROMYCIN 0.5% OPHTHALMIC OINTMENT 3.5 GM TUBE OS SCH (22:42)
[2022-10-16] MEDS: CYCLOBENZAPRINE HCL 10 MG TABLET (FP) PO PRN (22:46)
[2022-10-17] MEDS: PIPERACILLIN/TAZOB 3.375 GM 3.375 GM in DEXTROSE 5%-WATER - 50 ML IVPB SCH ×3 (02:02→18:35)
[2022-10-17] MEDS: ALBUTEROL SO4 2.5/IPRATROPIUM 0.5 INH SOL 3 ML VIAL.NEB. NEB SCH ×4 (07:40→20:41)
[2022-10-17] MEDS ORDERED: ERYTHROMYCIN 0.5% OPHTHALMIC OINTMENT 3.5 GM TUBE OS SCH (10:00)
[2022-10-17] MEDS: PANTOPRAZOLE 40 MG TABLET PO SCH (10:14)
[2022-10-17] MEDS: SUCRALFATE 1 GM TABLET (FP) PO SCH ×2 (10:14→13:47)
[2022-10-17] MEDS: SPIRONOLACTONE 25 MG TABLET PO SCH (10:14)
[2022-10-17] MEDS: fentaNYL 100mcg/hr PATCH.TD72 TD SCH (10:15)
[2022-10-17] MEDS: LACTULOSE 20 GM/30 ML UDC (FOR ORAL USE ONLY) PO SCH (10:15)
[2022-10-17] MEDS: ENOXAPARIN NA (PORCINE) 40 MG/0.4 ML DISP.SYRIN SQ SCH (10:17)
[2022-10-17] MEDS: prednisoLONE ACETATE 1% OPHTH SUSP 5 ML BOTTLE OS SCH (10:18)
[2022-10-17] MEDS: POLYMYXIN B SULFATE/TMP 10 ML OPHTHALMIC SOLUTION OS SCH ×2 (10:29→14:57)
[2022-10-17] MEDS: POTASSIUM CHLORIDE TABS 20 MEQ TABLET.ER (FP) PO SCH (13:47)
[2022-10-17] MEDS: TORSEMIDE 20 MG TABLET (FP) PO SCH (13:47)
[2022-10-17] MEDS: CYCLOPENTOLATE HCL 1% OPHTH SOLN 2 ML BOTTLE OS SCH ×2 (13:47→22:11)
[2022-10-17] MEDS ORDERED: ESCITALOPRAM OXALATE 10 MG TABLET ONE (22:09)
[2022-10-17] MEDS: FAMOTIDINE 20 MG TABLET PO SCH (22:11)
[2022-10-17] MEDS: ESCITALOPRAM OXALATE 20 MG TABLET PO SCH (22:11)
[2022-10-17] MEDS: ERYTHROMYCIN 0.5% OPHTHALMIC OINTMENT 3.5 GM TUBE OS SCH (22:12)
[2022-10-18] MEDS: POLYMYXIN B SULFATE/TMP 10 ML OPHTHALMIC SOLUTION OS SCH ×2 (02:55→13:44)
[2022-10-18] MEDS: PIPERACILLIN/TAZOB 3.375 GM 3.375 GM in DEXTROSE 5%-WATER - 50 ML IVPB SCH ×3 (02:55→18:17)
[2022-10-18] MEDS: CYCLOPENTOLATE HCL 1% OPHTH SOLN 2 ML BOTTLE OS SCH ×3 (05:54→22:37)
[2022-10-18] MEDS: SUCRALFATE 1 GM TABLET (FP) PO SCH ×3 (06:00→18:17)
[2022-10-18] MEDS: PANTOPRAZOLE 40 MG TABLET PO SCH (06:00)
[2022-10-18] MEDS: ALBUTEROL SO4 2.5/IPRATROPIUM 0.5 INH SOL 3 ML VIAL.NEB. NEB SCH ×4 (08:45→20:05)
[2022-10-18 09:17] LABS: BASO % 0.6 % (0-2.0); EOS % 2.9 % (0-4.5); HEMATOCRIT 32.3 % (32.4-45.2); HEMOGLOBIN 10.3 GM/dL (10.7-15.3); LYMPH % 21.8 % (8-40); MCHC 31.9 g/dl (32.0-36.0); MEAN CELL VOLUME 84.6 fl (80-96); MEAN PLT VOLUME 8.8 fl (7.5-11.1); NEUT % 56.7 % (42.8-82.8); PLATELET COUNT 113 10^3/uL (134-434); RBC 3.81 M/mm3 (3.60-5.2); RDW 18.7 % (11.6-15.6); WHITE BLOOD COUNT 4.2 K/mm3 (4.0-10.0)
[2022-10-18 09:31] LABS: POTASSIUM 3.8 mmol/L (3.5-5.1)
[2022-10-18 09:33] LABS: CALCIUM 8.7 mg/dL (8.5-10.1)
[2022-10-18 09:34] LABS: ALBUMIN 2.6 g/dl (3.4-5.0); BLOOD UREA NITROGEN 9.4 mg/dL (7-18)
[2022-10-18 09:37] LABS: CREATININE 0.9 mg/dL (0.55-1.3)
[2022-10-18 09:38] LABS: BILIRUBIN,TOTAL 0.5 mg/dL (0.2-1); TOT PROT 5.1 g/dl (6.4-8.2)
[2022-10-18] MEDS: SPIRONOLACTONE 25 MG TABLET PO SCH (09:39)
[2022-10-18] MEDS: ENOXAPARIN NA (PORCINE) 40 MG/0.4 ML DISP.SYRIN SQ SCH (09:39)
[2022-10-18] MEDS: prednisoLONE ACETATE 1% OPHTH SUSP 5 ML BOTTLE OS SCH (09:40)
[2022-10-18] MEDS: LACTULOSE 20 GM/30 ML UDC (FOR ORAL USE ONLY) PO SCH (09:45)
[2022-10-18] MEDS: CYCLOBENZAPRINE HCL 10 MG TABLET (FP) PO PRN (20:13)
[2022-10-18] MEDS: FAMOTIDINE 20 MG TABLET PO SCH (22:36)
[2022-10-18] MEDS: ESCITALOPRAM OXALATE 20 MG TABLET PO SCH (22:36)
[2022-10-18] MEDS: ERYTHROMYCIN 0.5% OPHTHALMIC OINTMENT 3.5 GM TUBE OS SCH (22:37)
[2022-10-19] MEDS: PIPERACILLIN/TAZOB 3.375 GM 3.375 GM in DEXTROSE 5%-WATER - 50 ML IVPB SCH ×3 (01:41→17:35)
[2022-10-19] MEDS: POLYMYXIN B SULFATE/TMP 10 ML OPHTHALMIC SOLUTION OS SCH ×2 (02:56→13:47)
[2022-10-19] MEDS: SUCRALFATE 1 GM TABLET (FP) PO SCH ×3 (06:09→17:35)
[2022-10-19] MEDS: PANTOPRAZOLE 40 MG TABLET PO SCH (06:09)
[2022-10-19] MEDS: CYCLOPENTOLATE HCL 1% OPHTH SOLN 2 ML BOTTLE OS SCH ×3 (06:10→23:19)
[2022-10-19] MEDS: ALBUTEROL SO4 2.5/IPRATROPIUM 0.5 INH SOL 3 ML VIAL.NEB. NEB SCH ×2 (07:25→11:20)
[2022-10-19] MEDS: SPIRONOLACTONE 25 MG TABLET PO SCH (09:18)
[2022-10-19] MEDS: ENOXAPARIN NA (PORCINE) 40 MG/0.4 ML DISP.SYRIN SQ SCH (09:19)
[2022-10-19] MEDS: LACTULOSE 20 GM/30 ML UDC (FOR ORAL USE ONLY) PO SCH (09:19)
[2022-10-19] MEDS: prednisoLONE ACETATE 1% OPHTH SUSP 5 ML BOTTLE OS SCH (09:23)
[2022-10-19] MEDS: POTASSIUM CHLORIDE TABS 20 MEQ TABLET.ER (FP) PO SCH (13:46)
[2022-10-19] MEDS: TORSEMIDE 20 MG TABLET (FP) PO SCH (13:46)
[2022-10-19] MEDS: FAMOTIDINE 20 MG TABLET PO SCH (23:20)
[2022-10-19] MEDS: ESCITALOPRAM OXALATE 20 MG TABLET PO SCH (23:20)
[2022-10-19] MEDS: ERYTHROMYCIN 0.5% OPHTHALMIC OINTMENT 3.5 GM TUBE OS SCH (23:20)
[2022-10-20] MEDS: PIPERACILLIN/TAZOB 3.375 GM 3.375 GM in DEXTROSE 5%-WATER - 50 ML IVPB SCH ×3 (02:27→17:58)
[2022-10-20] MEDS: POLYMYXIN B SULFATE/TMP 10 ML OPHTHALMIC SOLUTION OS SCH ×2 (04:08→15:43)
[2022-10-20] MEDS: PANTOPRAZOLE 40 MG TABLET PO SCH (07:21)
[2022-10-20] MEDS: SUCRALFATE 1 GM TABLET (FP) PO SCH ×3 (07:21→16:56)
[2022-10-20] MEDS: CYCLOPENTOLATE HCL 1% OPHTH SOLN 2 ML BOTTLE OS SCH ×3 (07:22→22:04)
[2022-10-20] MEDS: fentaNYL 100mcg/hr PATCH.TD72 TD SCH (10:14)
[2022-10-20] MEDS: SPIRONOLACTONE 25 MG TABLET PO SCH (10:17)
[2022-10-20] MEDS: LACTULOSE 20 GM/30 ML UDC (FOR ORAL USE ONLY) PO SCH (10:18)
[2022-10-20] MEDS: prednisoLONE ACETATE 1% OPHTH SUSP 5 ML BOTTLE OS SCH (10:19)
[2022-10-20] MEDS: FENTANYL PATCH WASTE TD PRN (10:29)
[2022-10-20] MEDS: CYCLOBENZAPRINE HCL 10 MG TABLET (FP) PO PRN (16:06)
[2022-10-20] MEDS ORDERED: ESCITALOPRAM OXALATE 10 MG TABLET ONE (21:49)
[2022-10-20] MEDS: ERYTHROMYCIN 0.5% OPHTHALMIC OINTMENT 3.5 GM TUBE OS SCH (22:02)
[2022-10-20] MEDS: ESCITALOPRAM OXALATE 20 MG TABLET PO SCH (22:04)
[2022-10-21] MEDS: FAMOTIDINE 20 MG TABLET PO SCH ×2 (00:01→21:41)
[2022-10-21] MEDS: PIPERACILLIN/TAZOB 3.375 GM 3.375 GM in DEXTROSE 5%-WATER - 50 ML IVPB SCH ×3 (02:28→17:41)
[2022-10-21] MEDS: POLYMYXIN B SULFATE/TMP 10 ML OPHTHALMIC SOLUTION OS SCH ×2 (02:28→14:47)
[2022-10-21] MEDS: PANTOPRAZOLE 40 MG TABLET PO SCH (06:19)
[2022-10-21] MEDS: SUCRALFATE 1 GM TABLET (FP) PO SCH ×3 (06:19→17:41)
[2022-10-21] MEDS: CYCLOPENTOLATE HCL 1% OPHTH SOLN 2 ML BOTTLE OS SCH ×3 (06:50→22:15)
[2022-10-21] MEDS: LACTULOSE 20 GM/30 ML UDC (FOR ORAL USE ONLY) PO SCH (09:57)
[2022-10-21] MEDS: SPIRONOLACTONE 25 MG TABLET PO SCH (09:59)
[2022-10-21] MEDS: prednisoLONE ACETATE 1% OPHTH SUSP 5 ML BOTTLE OS SCH (10:02)
[2022-10-21] MEDS: POTASSIUM CHLORIDE TABS 20 MEQ TABLET.ER (FP) PO SCH ×2 (14:36→14:45)
[2022-10-21] MEDS: TORSEMIDE 20 MG TABLET (FP) PO SCH ×2 (14:36→14:45)
[2022-10-21] MEDS ORDERED: FUROSEMIDE 40 MG/4 ML INJECTABLE VIAL IVPUSH ONE (20:16)
[2022-10-21] MEDS ORDERED: ALBUTEROL SO4 2.5/IPRATROPIUM 0.5 INH SOL 3 ML VIAL.NEB. NEB PRN (20:41)
[2022-10-21] MEDS ORDERED: ALBUTEROL SO4 2.5/IPRATROPIUM 0.5 INH SOL 3 ML VIAL.NEB. NEB ONE (20:42)
[2022-10-21] MEDS ORDERED: ESCITALOPRAM OXALATE 10 MG TABLET ONE (21:09)
[2022-10-21 21:25] LABS: BASO % 1.3 % (0-2.0); EOS % 3.9 % (0-4.5); HEMATOCRIT 34.3 % (32.4-45.2); HEMOGLOBIN 11.2 GM/dL (10.7-15.3); LYMPH % 19.2 % (8-40); MCH 27.3 pg (25.7-33.7); MCHC 32.6 g/dl (32.0-36.0); MEAN CELL VOLUME 83.7 fl (80-96); MEAN PLT VOLUME 8.1 fl (7.5-11.1); MONO % 13.1 % (3.8-10.2); NEUT % 62.5 % (42.8-82.8); PLATELET COUNT 125 10^3/uL (134-434); RDW 19.2 % (11.6-15.6); WHITE BLOOD COUNT 3.8 K/mm3 (4.0-10.0)
[2022-10-21] MEDS: ESCITALOPRAM OXALATE 20 MG TABLET PO SCH (21:42)
[2022-10-21 21:45] LABS: POTASSIUM 3.8 mmol/L (3.5-5.1)
[2022-10-21 21:46] LABS: CALCIUM 8.8 mg/dL (8.5-10.1)
[2022-10-21 21:47] LABS: BLOOD UREA NITROGEN 9.1 mg/dL (7-18)
[2022-10-21 21:50] LABS: CREATININE 0.8 mg/dL (0.55-1.3)
[2022-10-21 21:54] LABS: N-TERMINAL BNP 23.9 pg/ml (5-125)
[2022-10-21] MEDS: ERYTHROMYCIN 0.5% OPHTHALMIC OINTMENT 3.5 GM TUBE OS SCH (22:15)
[2022-10-22] MEDS: PIPERACILLIN/TAZOB 3.375 GM 3.375 GM in DEXTROSE 5%-WATER - 50 ML IVPB SCH ×3 (01:41→17:49)
[2022-10-22] MEDS: POLYMYXIN B SULFATE/TMP 10 ML OPHTHALMIC SOLUTION OS SCH ×2 (03:06→13:55)
[2022-10-22] MEDS: CYCLOPENTOLATE HCL 1% OPHTH SOLN 2 ML BOTTLE OS SCH ×3 (06:06→21:25)
[2022-10-22] MEDS: PANTOPRAZOLE 40 MG TABLET PO SCH (06:12)
[2022-10-22] MEDS: SUCRALFATE 1 GM TABLET (FP) PO SCH ×3 (06:12→17:49)
[2022-10-22] MEDS: LACTULOSE 20 GM/30 ML UDC (FOR ORAL USE ONLY) PO SCH (09:31)
[2022-10-22] MEDS: SPIRONOLACTONE 25 MG TABLET PO SCH (09:32)
[2022-10-22] MEDS: prednisoLONE ACETATE 1% OPHTH SUSP 5 ML BOTTLE OS SCH (09:34)
[2022-10-22] MEDS ORDERED: FENTANYL PATCH WASTE TD PRN (10:01)
[2022-10-22] MEDS: fentaNYL 100mcg/hr PATCH.TD72 TD SCH (10:26)
[2022-10-22] MEDS: FENTANYL PATCH WASTE TD PRN (10:30)
[2022-10-22] MEDS ORDERED: ESCITALOPRAM OXALATE 10 MG TABLET ONE (21:11)
[2022-10-22] MEDS: FAMOTIDINE 20 MG TABLET PO SCH (21:23)
[2022-10-22] MEDS: ESCITALOPRAM OXALATE 20 MG TABLET PO SCH (21:24)
[2022-10-22] MEDS: ERYTHROMYCIN 0.5% OPHTHALMIC OINTMENT 3.5 GM TUBE OS SCH (21:26)
[2022-10-23] MEDS: PIPERACILLIN/TAZOB 3.375 GM 3.375 GM in DEXTROSE 5%-WATER - 50 ML IVPB SCH ×3 (01:58→17:19)
[2022-10-23] MEDS: POLYMYXIN B SULFATE/TMP 10 ML OPHTHALMIC SOLUTION OS SCH ×2 (02:30→14:55)
[2022-10-23] MEDS: SUCRALFATE 1 GM TABLET (FP) PO SCH ×3 (06:32→16:21)
[2022-10-23] MEDS: PANTOPRAZOLE 40 MG TABLET PO SCH (06:32)
[2022-10-23] MEDS: CYCLOPENTOLATE HCL 1% OPHTH SOLN 2 ML BOTTLE OS SCH (06:33)
[2022-10-23] MEDS: SPIRONOLACTONE 25 MG TABLET PO SCH (09:41)
[2022-10-23] MEDS: LACTULOSE 20 GM/30 ML UDC (FOR ORAL USE ONLY) PO SCH (09:49)
[2022-10-23] MEDS: prednisoLONE ACETATE 1% OPHTH SUSP 5 ML BOTTLE OS SCH (09:49)
[2022-10-23] MEDS ORDERED: FUROSEMIDE 40 MG/4 ML INJECTABLE VIAL IVPUSH ONE (10:19)
[2022-10-23] MEDS: POTASSIUM CHLORIDE TABS 20 MEQ TABLET.ER (FP) PO SCH (14:42)
[2022-10-23] MEDS ORDERED: ESCITALOPRAM OXALATE 10 MG TABLET ONE (21:14)
[2022-10-23] MEDS: FAMOTIDINE 20 MG TABLET PO SCH (21:20)
[2022-10-23] MEDS: CYCLOBENZAPRINE HCL 10 MG TABLET (FP) PO PRN (21:20)
[2022-10-23] MEDS: ESCITALOPRAM OXALATE 20 MG TABLET PO SCH (21:21)
[2022-10-23] MEDS: ERYTHROMYCIN 0.5% OPHTHALMIC OINTMENT 3.5 GM TUBE OS SCH (21:22)
[2022-10-24] MEDS: PIPERACILLIN/TAZOB 3.375 GM 3.375 GM in DEXTROSE 5%-WATER - 50 ML IVPB SCH ×3 (02:47→17:17)
[2022-10-24] MEDS: POLYMYXIN B SULFATE/TMP 10 ML OPHTHALMIC SOLUTION OS SCH ×2 (02:48→15:25)
[2022-10-24] MEDS: PANTOPRAZOLE 40 MG TABLET PO SCH (06:30)
[2022-10-24] MEDS: SUCRALFATE 1 GM TABLET (FP) PO SCH ×3 (06:30→17:16)
[2022-10-24 09:32] LABS: BASO % 1.2 % (0-2.0); EOS % 4.5 % (0-4.5); HEMOGLOBIN 11.3 GM/dL (10.7-15.3); LYMPH % 15.5 % (8-40); MCH 27.2 pg (25.7-33.7); MCHC 32.4 g/dl (32.0-36.0); MEAN CELL VOLUME 83.8 fl (80-96); MEAN PLT VOLUME 8.6 fl (7.5-11.1); MONO % 11.4 % (3.8-10.2); NEUT % 67.4 % (42.8-82.8); PLATELET COUNT 146 10^3/uL (134-434); RBC 4.17 M/mm3 (3.60-5.2); RDW 18.5 % (11.6-15.6); WHITE BLOOD COUNT 4.4 K/mm3 (4.0-10.0)
[2022-10-24] MEDS: SPIRONOLACTONE 25 MG TABLET PO SCH (09:43)
[2022-10-24] MEDS: LACTULOSE 20 GM/30 ML UDC (FOR ORAL USE ONLY) PO SCH (09:43)
[2022-10-24] MEDS: prednisoLONE ACETATE 1% OPHTH SUSP 5 ML BOTTLE OS SCH (10:00)
[2022-10-24 10:09] LABS: ALBUMIN 2.7 g/dl (3.4-5.0); BILIRUBIN,TOTAL 0.4 mg/dL (0.2-1); BLOOD UREA NITROGEN 12.4 mg/dL (7-18); CALCIUM 9.2 mg/dL (8.5-10.1); CREATININE 0.9 mg/dL (0.55-1.3); POTASSIUM 3.9 mmol/L (3.5-5.1); TOT PROT 5.5 g/dl (6.4-8.2)
[2022-10-24] MEDS: ALBUTEROL SO4 2.5/IPRATROPIUM 0.5 INH SOL 3 ML VIAL.NEB. NEB SCH ×3 (14:20→20:09)
[2022-10-24 15:02] VITALS: RESP 18
[2022-10-24] MEDS ORDERED: ESCITALOPRAM OXALATE 10 MG TABLET ONE (21:13)
[2022-10-24] MEDS: FAMOTIDINE 20 MG TABLET PO SCH (21:27)
[2022-10-24] MEDS: ESCITALOPRAM OXALATE 20 MG TABLET PO SCH (21:28)
[2022-10-24] MEDS: ERYTHROMYCIN 0.5% OPHTHALMIC OINTMENT 3.5 GM TUBE OS SCH (21:31)
[2022-10-25] MEDS: PIPERACILLIN/TAZOB 3.375 GM 3.375 GM in DEXTROSE 5%-WATER - 50 ML IVPB SCH ×3 (01:11→18:11)
[2022-10-25] MEDS: POLYMYXIN B SULFATE/TMP 10 ML OPHTHALMIC SOLUTION OS SCH ×2 (02:50→14:40)
[2022-10-25] MEDS: PANTOPRAZOLE 40 MG TABLET PO SCH (06:34)
[2022-10-25] MEDS: SUCRALFATE 1 GM TABLET (FP) PO SCH ×3 (06:34→16:08)
[2022-10-25] MEDS: ALBUTEROL SO4 2.5/IPRATROPIUM 0.5 INH SOL 3 ML VIAL.NEB. NEB SCH ×4 (07:53→21:05)
[2022-10-25] MEDS: SPIRONOLACTONE 25 MG TABLET PO SCH (10:41)
[2022-10-25] MEDS: LACTULOSE 20 GM/30 ML UDC (FOR ORAL USE ONLY) PO SCH (10:41)
[2022-10-25] MEDS: fentaNYL 100mcg/hr PATCH.TD72 TD SCH (10:47)
[2022-10-25] MEDS: prednisoLONE ACETATE 1% OPHTH SUSP 5 ML BOTTLE OS SCH (10:53)
[2022-10-25] MEDS: FENTANYL PATCH WASTE TD PRN (10:54)
[2022-10-25] MEDS: methylPREDNISolone NA SUCC 40 MG/1 ML VIAL IVPUSH SCH ×2 (10:57→18:11)
[2022-10-25] MEDS: POTASSIUM CHLORIDE TABS 20 MEQ TABLET.ER (FP) PO SCH (13:40)
[2022-10-25] MEDS: TORSEMIDE 20 MG TABLET (FP) PO SCH (14:40)
[2022-10-25] MEDS ORDERED: ESCITALOPRAM OXALATE 10 MG TABLET ONE (21:47)
[2022-10-25] MEDS: ESCITALOPRAM OXALATE 20 MG TABLET PO SCH (21:55)
[2022-10-25] MEDS: FAMOTIDINE 20 MG TABLET PO SCH (21:55)
[2022-10-25] MEDS: ERYTHROMYCIN 0.5% OPHTHALMIC OINTMENT 3.5 GM TUBE OS SCH (21:57)
[2022-10-26] MEDS: PIPERACILLIN/TAZOB 3.375 GM 3.375 GM in DEXTROSE 5%-WATER - 50 ML IVPB SCH ×2 (02:11→09:13)
[2022-10-26] MEDS: methylPREDNISolone NA SUCC 40 MG/1 ML VIAL IVPUSH SCH ×2 (02:11→09:13)
[2022-10-26] MEDS: POLYMYXIN B SULFATE/TMP 10 ML OPHTHALMIC SOLUTION OS SCH (02:30)
[2022-10-26] MEDS: PANTOPRAZOLE 40 MG TABLET PO SCH (06:19)
[2022-10-26] MEDS: SUCRALFATE 1 GM TABLET (FP) PO SCH ×2 (06:19→11:49)
[2022-10-26] MEDS: ALBUTEROL SO4 2.5/IPRATROPIUM 0.5 INH SOL 3 ML VIAL.NEB. NEB SCH ×2 (08:20→12:23)
[2022-10-26] MEDS: SPIRONOLACTONE 25 MG TABLET PO SCH (09:13)
[2022-10-26] MEDS: LACTULOSE 20 GM/30 ML UDC (FOR ORAL USE ONLY) PO SCH (09:13)
[2022-10-26] MEDS: prednisoLONE ACETATE 1% OPHTH SUSP 5 ML BOTTLE OS SCH (09:45)
[2022-10-26 14:25] VITALS: BP 113/76; PULSE 87; TEMP 97.7
== END 2022-10-26 15:08 | disposition home or self-care (01) | DRG 194 ==
LOC: JER 20:57 → JERBED 10-13 03:43 → J6S 10-13 08:23
PROVIDERS: ADMIT Internal Medicine; ATTEND Internal Medicine
PROC: B51VZZZ Fluoroscopy of Other Veins (ICD-10-PCS; principal; 2022-10-20)
DX: J18.1 Lobar pneumonia, unspecified organism (principal); C78.00 Secondary malignant neoplasm of unspecified lung; C78.7 Secondary malignant neoplasm of liver and intrahepatic bile duct; J44.0 Chronic obstructive pulmonary disease with (acute) lower respiratory infection; C79.52 Secondary malignant neoplasm of bone marrow; J98.11 Atelectasis; J90 Pleural effusion, not elsewhere classified; C50.919 Malignant neoplasm of unspecified site of unspecified female breast; E78.5 Hyperlipidemia, unspecified; K74.60 Unspecified cirrhosis of liver; L40.50 Arthropathic psoriasis, unspecified; K29.50 Unspecified chronic gastritis without bleeding; K21.9 Gastro-esophageal reflux disease without esophagitis; R51.9 Headache, unspecified; E11.9 Type 2 diabetes mellitus without complications; L65.9 Nonscarring hair loss, unspecified; R09.02 Hypoxemia; M54.50 Low back pain, unspecified; F41.8 Other specified anxiety disorders; I11.0 Hypertensive heart disease with heart failure; I50.9 Heart failure, unspecified; Z99.81 Dependence on supplemental oxygen
CPT/HCPCS: 0241U-QW; 36415; 36598; 71045-TC-FY; 71250-TC; 71275-TC; 75827-TC-FY; 80048; 80053; 83735; 83880; 84100; 84484; 85025; 85027; 85610; 85730; 86850; 86900; 86901; 87040; 87070; 87077; 87205; 87899; 93005; 93010; 94010; 94640; 94761; 99285-25

== ENCOUNTER 2022-10-27 22:33 | Inpatient (IN) | payer OTHER ==
[2022-10-28 00:13] LABS: BASO % 0.5 % (0-2.0); EOS % 1.1 % (0-4.5); HEMATOCRIT 35.9 % (32.4-45.2); HEMOGLOBIN 11.3 GM/dL (10.7-15.3); LYMPH % 12.6 % (8-40); MCH 26.5 pg (25.7-33.7); MCHC 31.6 g/dl (32.0-36.0); MEAN CELL VOLUME 83.9 fl (80-96); MEAN PLT VOLUME 8.3 fl (7.5-11.1); MONO % 10.1 % (3.8-10.2); NEUT % 75.7 % (42.8-82.8); PLATELET COUNT 165 10^3/uL (134-434); RBC 4.28 M/mm3 (3.60-5.2); RDW 18.4 % (11.6-15.6); WHITE BLOOD COUNT 6.5 K/mm3 (4.0-10.0)
[2022-10-28 00:19] LABS: INR 1.09 (0.83-1.09); PROTHROMBIN TIME (PATIENT) 12.6 SEC (9.7-13.0)
[2022-10-28 00:22] LABS: ACTIVATED PTT 48.8 SECONDS (25.2-36.5)
[2022-10-28 00:31] LABS: POTASSIUM 4.6 mmol/L (3.5-5.1)
[2022-10-28 00:34] LABS: ALBUMIN 2.8 g/dl (3.4-5.0); BLOOD UREA NITROGEN 20.4 mg/dL (7-18); CALCIUM 9.4 mg/dL (8.5-10.1)
[2022-10-28 00:38] LABS: CREATININE 0.6 mg/dL (0.55-1.3)
[2022-10-28 00:39] LABS: TOT PROT 5.5 g/dl (6.4-8.2)
[2022-10-28] MEDS ORDERED: ASPIRIN 81 MG CHEWABLE TABLETS PO ONE (02:55)
[2022-10-28] MEDS ORDERED: ASPIRIN COATED 81 MG TABLET.EC ONE (03:36)
[2022-10-28] MEDS ORDERED: DOCUSATE SODIUM 100 MG CAPSULE (FP) PO PRN (04:07)
[2022-10-28] MEDS ORDERED: FUROSEMIDE 40 MG/4 ML INJECTABLE VIAL IVPUSH ONE (05:05)
[2022-10-28] MEDS ORDERED: predniSONE 20 MG TABLET (UD) PO ONE (05:07)
[2022-10-28] MEDS: ALBUTEROL SO4 2.5/IPRATROPIUM 0.5 INH SOL 3 ML VIAL.NEB. NEB SCH ×2 (05:18→05:19)
[2022-10-28 06:23] LABS: BASO % 0.7 % (0-2.0); EOS % 1.8 % (0-4.5); HEMATOCRIT 35.1 % (32.4-45.2); HEMOGLOBIN 11.4 GM/dL (10.7-15.3); LYMPH % 14.1 % (8-40); MCH 27.1 pg (25.7-33.7); MCHC 32.5 g/dl (32.0-36.0); MEAN CELL VOLUME 83.4 fl (80-96); MEAN PLT VOLUME 8.1 fl (7.5-11.1); MONO % 11.8 % (3.8-10.2); NEUT % 71.6 % (42.8-82.8); PLATELET COUNT 152 10^3/uL (134-434); RBC 4.21 M/mm3 (3.60-5.2); RDW 18.6 % (11.6-15.6); WHITE BLOOD COUNT 6.2 K/mm3 (4.0-10.0)
[2022-10-28] MEDS: PANTOPRAZOLE 40 MG TABLET PO SCH (06:23)
[2022-10-28 06:39] LABS: POTASSIUM 4.6 mmol/L (3.5-5.1)
[2022-10-28 06:40] LABS: CALCIUM 9.2 mg/dL (8.5-10.1)
[2022-10-28 06:41] LABS: BLOOD UREA NITROGEN 19.1 mg/dL (7-18); MAGNESIUM 1.8 mg/dL (1.8-2.4)
[2022-10-28 06:44] LABS: CREATININE 0.6 mg/dL (0.55-1.3); PHOSPHOROUS 3.5 mg/dL (2.5-4.9)
[2022-10-28] MEDS ORDERED: LACTULOSE 20 GM/30 ML UDC (FOR ORAL USE ONLY) ONE (08:22)
[2022-10-28] MEDS: SUCRALFATE 1 GM TABLET (FP) PO SCH (08:59)
[2022-10-28] MEDS: FLUTICASONE/UMECLIDIN/VILANTER(100-62.5-25 TRELEGY ELLIPTA) INAHLER IH SCH (09:00)
[2022-10-28] MEDS: LACTULOSE 20 GM/30 ML UDC (FOR ORAL USE ONLY) PO SCH (09:00)
[2022-10-28 09:28] LABS: ARTERIAL BLD GAS O2 SATURATION 95.9 % (95-98); ARTERIAL BLOOD GAS BASE EXCESS 2.8 mmol/L (-2-2); ARTERIAL BLOOD GAS PO2 78.1 mmHg (80-100); ARTERIAL BLOOD GAS pH 7.436 (7.350-7.450)
[2022-10-28] MEDS ORDERED: LORazepam 2 MG/ML SDV VIAL IVPB ONE (09:53)
[2022-10-28] MEDS ORDERED: ALBUTEROL SO4 2.5/IPRATROPIUM 0.5 INH SOL 3 ML VIAL.NEB. NEB PRN (10:00)
[2022-10-28] MEDS ORDERED: CYCLOBENZAPRINE HCL 10 MG TABLET (FP) PO PRN (10:15)
[2022-10-28] MEDS ORDERED: FENTANYL PATCH WASTE TD PRN ×2 (10:41)
[2022-10-28] MEDS ORDERED: fentaNYL 100mcg/hr PATCH.TD72 TD SCH (11:00)
[2022-10-28] MEDS ORDERED: ALBUTEROL SO4 2.5/IPRATROPIUM 0.5 INH SOL 3 ML VIAL.NEB. NEB SCH ×2 (12:00→16:00)
[2022-10-28] MEDS: HEPARIN NA (PORCINE) 5,000 UNITS/ML 1ML VIAL SQ SCH ×2 (12:24→22:38)
[2022-10-28] MEDS ORDERED: HEPARIN NA (PORCINE) 5,000 UNITS/ML 1ML VIAL ONE ×2 (12:31→22:28)
[2022-10-28] MEDS ORDERED: ESCITALOPRAM OXALATE 10 MG TABLET PO SCH (22:00)
[2022-10-28] MEDS: HYDROmorphone HCL 2 MG TABLET PO PRN (23:44)
[2022-10-28] MEDS: ALPRAZolam 0.25 MG TABLET PO PRN (23:44)
[2022-10-29] MEDS: PANTOPRAZOLE 40 MG TABLET PO SCH (06:24)
[2022-10-29 08:24] LABS: POTASSIUM 4.2 mmol/L (3.5-5.1)
[2022-10-29 08:33] LABS: BASO % 0.5 % (0-2.0); HEMATOCRIT 35.1 % (32.4-45.2); HEMOGLOBIN 11.3 GM/dL (10.7-15.3); MCH 27.1 pg (25.7-33.7); MCHC 32.2 g/dl (32.0-36.0); MEAN CELL VOLUME 84.3 fl (80-96); MEAN PLT VOLUME 8.7 fl (7.5-11.1); MONO % 11.2 % (3.8-10.2); NEUT % 68.3 % (42.8-82.8); PLATELET COUNT 148 10^3/uL (134-434); RBC 4.16 M/mm3 (3.60-5.2); WHITE BLOOD COUNT 5.8 K/mm3 (4.0-10.0)
[2022-10-29 08:34] LABS: ALBUMIN 2.6 g/dl (3.4-5.0); CALCIUM 9.2 mg/dL (8.5-10.1)
[2022-10-29 08:35] LABS: BLOOD UREA NITROGEN 14.7 mg/dL (7-18)
[2022-10-29 08:37] LABS: CREATININE 0.6 mg/dL (0.55-1.3)
[2022-10-29 08:39] LABS: TOT PROT 5.4 g/dl (6.4-8.2)
[2022-10-29 08:40] LABS: BILIRUBIN,TOTAL 0.8 mg/dL (0.2-1)
[2022-10-29] MEDS: LACTULOSE 20 GM/30 ML UDC (FOR ORAL USE ONLY) PO SCH (09:48)
[2022-10-29] MEDS: HEPARIN NA (PORCINE) 5,000 UNITS/ML 1ML VIAL SQ SCH ×2 (09:48→22:01)
[2022-10-29] MEDS: ESCITALOPRAM OXALATE 20 MG TABLET PO SCH (09:49)
[2022-10-29] MEDS: TORSEMIDE 20 MG TABLET (FP) PO SCH (09:50)
[2022-10-29] MEDS: predniSONE 20 MG TABLET (UD) PO SCH (09:51)
[2022-10-29] MEDS: POTASSIUM CHLORIDE TABS 20 MEQ TABLET.ER (FP) PO SCH (09:51)
[2022-10-29] MEDS: SUCRALFATE 1 GM TABLET (FP) PO SCH (09:51)
[2022-10-29] MEDS: FLUTICASONE/UMECLIDIN/VILANTER(100-62.5-25 TRELEGY ELLIPTA) INAHLER IH SCH (09:58)
[2022-10-29] MEDS: ALPRAZolam 0.25 MG TABLET PO PRN (22:01)
[2022-10-30] MEDS: PANTOPRAZOLE 40 MG TABLET PO SCH (06:41)
[2022-10-30] MEDS: LACTULOSE 20 GM/30 ML UDC (FOR ORAL USE ONLY) PO SCH (09:29)
[2022-10-30] MEDS: POTASSIUM CHLORIDE TABS 20 MEQ TABLET.ER (FP) PO SCH (09:30)
[2022-10-30] MEDS: SUCRALFATE 1 GM TABLET (FP) PO SCH (09:30)
[2022-10-30] MEDS: predniSONE 20 MG TABLET (UD) PO SCH (09:30)
[2022-10-30] MEDS: HEPARIN NA (PORCINE) 5,000 UNITS/ML 1ML VIAL SQ SCH (09:31)
[2022-10-30] MEDS: TORSEMIDE 20 MG TABLET (FP) PO SCH (09:31)
[2022-10-30] MEDS: ESCITALOPRAM OXALATE 20 MG TABLET PO SCH (09:31)
[2022-10-30] MEDS ORDERED: ALBUTEROL SO4 0.083% IH SOL 2.5 MG/3 ML VIAL.NEB. NEB PRN (10:27)
[2022-10-30] MEDS: FLUTICASONE/UMECLIDIN/VILANTER(100-62.5-25 TRELEGY ELLIPTA) INAHLER IH SCH (10:44)
[2022-10-30] MEDS: HYDROmorphone HCL 2 MG TABLET PO PRN ×2 (11:15→17:11)
[2022-10-30 15:31] VITALS: BMI 28.3
[2022-10-30 16:02] VITALS: PULSE 84; RESP 22
[2022-10-30 20:03] VITALS: BP 105/73; TEMP 98.8
== END 2022-10-30 20:27 | disposition short-term general hospital (02) | DRG 598 ==
LOC: JER 22:33 → JERBED 10-28 02:18 → J4W 10-28 23:26
PROVIDERS: ADMIT Internal Medicine; ATTEND Internal Medicine
DX: C50.912 Malignant neoplasm of unspecified site of left female breast (principal); C78.00 Secondary malignant neoplasm of unspecified lung; C78.7 Secondary malignant neoplasm of liver and intrahepatic bile duct; C79.51 Secondary malignant neoplasm of bone; I24.8 Other forms of acute ischemic heart disease; I50.32 Chronic diastolic (congestive) heart failure; J44.9 Chronic obstructive pulmonary disease, unspecified; I11.0 Hypertensive heart disease with heart failure; I50.9 Heart failure, unspecified; E78.5 Hyperlipidemia, unspecified; E11.9 Type 2 diabetes mellitus without complications; K21.9 Gastro-esophageal reflux disease without esophagitis; K74.60 Unspecified cirrhosis of liver; K29.50 Unspecified chronic gastritis without bleeding
CPT/HCPCS: 36415; 36600; 71045-TC-FY; 80048; 80053; 82803; 82962; 83735; 83880; 84100; 84484; 85025; 85610; 85730; 87635; 93005; 93010; 94640; 99285-25; J1644